=== PATIENT | male | born 1950 | race Caucasian/White ===

== ENCOUNTER 2017-09-07 11:57 | Emergency (ER) | payer BC, MEDICARE ==
[2017-09-07 12:02] VITALS: RESP 18
[2017-09-07] MEDS ORDERED: methylPREDNISolone SOD SUCCI 125 MG/2 ML VIAL IM ONE (12:22)
[2017-09-07] MEDS ORDERED: KETOROLAC 30 MG/ML 1 ML VIAL IM STA (12:22)
--- NOTE | 2017-09-07 12:58 | XR ---
EXAMINATION TYPE: XR lumbar spine 2 or 3V DATE OF EXAM: 09/07/2017 CLINICAL HISTORY: Chronic back pain since lifting injury 4 years ago worse over last 3 weeks into lef t leg. TECHNIQUE: Frontal and lateral images of the lumbar spine are obtained. COMPARISON: CT lumbar spine October 05, 2014 and lumbosacral x-ray October 04, 2014 FINDINGS: There are 5 lumbar type vertebral bodies redemonstrated. The lumbar spine redemonstrates straightened alignment without evidence of acute fracture or dislocation. Vertebral body heights enrico in within normal limits. There is now moderate spurring and disc space narrowing at left L3-L4 level more prominent versus prior. Increasing moderate to severe disc space narrowing L4-L5 level is seen. Persistent moderate to advanced disc space narrowing with mild spurring L5-S1 level is identified. Th ere is persistent mild multilevel anterior and lateral spurring. The overlying soft tissue appears u nremarkable. IMPRESSION: No acute fracture or dislocation is seen in the lumbar spine. Straightening of spine wit h increasing degenerative changes L3-L4 and L4-L5 level noted.
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
[2017-09-07 13:48] VITALS: BP 119/68; PULSE 58; TEMP 97
== END 2017-09-07 13:47 | disposition home or self-care (01) ==
LOC: EC 11:57
DX: M54.42 Lumbago with sciatica, left side (principal); I10 Essential (primary) hypertension; I25.2 Old myocardial infarction; Z95.5 Presence of coronary angioplasty implant and graft; Z88.0 Allergy status to penicillin; Z79.82 Long term (current) use of aspirin; Z79.899 Other long term (current) drug therapy
CPT/HCPCS: 99283; 96372 ×2; 72100; J2930; J1885

== ENCOUNTER 2017-09-09 16:28 | Inpatient (IN) | payer MEDICARE ==
[2017-09-09] MEDS ORDERED: HYDROmorphone 0.5 MG/0.5 ML SYRINGE IVP STA (17:15)
[2017-09-09] MEDS ORDERED: ONDANSETRON 4 MG/2 ML VIAL IVP STA (17:15)
[2017-09-09] MEDS ORDERED: DIAZEPAM 5 MG/ML 2 ML INJ IVP STA (17:16)
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
[2017-09-09 17:50] LABS: Basophils % (A) 0 %; Eosinophils # (A) 0.1 k/uL (0-0.7); Eosinophils % (A) 1 %; HCT 44.7 % (39.0-53.0); HGB 15.4 gm/dL (13.0-17.5); Lymphocytes # (A) 0.7 k/uL (1.0-4.8); Lymphocytes % (A) 7 %; MCH 30.3 pg (25.0-35.0); MCHC 34.6 g/dL (31.0-37.0); MCV 87.6 fL (80.0-100.0); Mean Platelet Volume 7.5; Monocytes # (A) 0.4 k/uL (0-1.0); Monocytes % (A) 4 %; Neutrophils # (A) 8.7 k/uL (1.3-7.7); Neutrophils % (A) 88 %; Platelet Count 154 k/uL (150-450); RDW 14.4 % (11.5-15.5); WBC 9.9 k/uL (3.8-10.6)
--- NOTE | 2017-09-09 18:00 | CT ---
EXAMINATION TYPE: CT lumbar spine wo con DATE OF EXAM: 09/09/2017 5:53 PM COMPARISON: NONE HISTORY: low back pain X many years. pt states injury to low back 4 years ago. no new injury. CT DLP: 1193.8 mGycm Automated exposure control for dose reduction was used. Unenhanced CT of the lumbar spine was performed. Bone and soft tissue window settings are submitted as well as coronal and sagittal reconstructions. The vertebra have normal alignment. There is narrowing of disc spaces throughout the lumbar spine wit h variable vacuum disc phenomenon. There is spurring of the endplates. There is no lumbar paraspinal mass. There is no compression fracture. Abdominal aorta is atheromatous. There is posterior disc bulg ing at L2-3. There is a mild lateral disc herniation at L3-4 on the left side. There is small posteri or disc herniation centrally at L4-5. The posterior elements are intact. I see no focal bone destruct ion. The sacroiliac joints are intact. IMPRESSION: Multilevel spondylosis. Findings as above. No evidence of any significant lumbar spinal stenosis. There is a small sequestered or extruded disc herniation in the spinal canal from the L3-4 disc herni ation on the left side that is in the lateral recess posterior to L4 vertebral body.
[2017-09-09 18:01] LABS: ALT 35 U/L (21-72); AST 20 U/L (17-59); Albumin 3.9 g/dL (3.5-5.0); Alkaline Phosphatase 82 U/L (38-126); Anion Gap 10 mmol/L; Blood Urea Nitrogen 29 mg/dL (9-20); Calcium 9.4 mg/dL (8.4-10.2); Carbon Dioxide 21 mmol/L (22-30); Chloride 109 mmol/L (98-107); Glucose 123 mg/dL (74-99); Sodium 140 mmol/L (137-145); Total Bilirubin 0.4 mg/dL (0.2-1.3); Total Protein 6.3 g/dL (6.3-8.2)
[2017-09-09] MEDS ORDERED: SODIUM CHLORIDE 0.9% 1,000 ML IV ONE (18:31)
[2017-09-09] MEDS ORDERED: HYDROmorphone 0.5 MG/0.5 ML SYRINGE IVP PRN (18:33)
[2017-09-09 22:29] VITALS: BMI 31.5
[2017-09-09] MEDS: DIAZEPAM 5 MG/ML 2 ML INJ IVP PRN (23:22)
[2017-09-09] MEDS: KETOROLAC 30 MG/ML 1 ML VIAL IVP SCH (23:33)
[2017-09-10] MEDS: KETOROLAC 30 MG/ML 1 ML VIAL IVP SCH ×4 (05:29→23:10)
[2017-09-10] MEDS: HYDROmorphone 0.5 MG/0.5 ML SYRINGE IVP PRN ×2 (06:33→13:14)
[2017-09-10] MEDS: DIAZEPAM 5 MG/ML 2 ML INJ IVP PRN ×2 (08:22→21:03)
[2017-09-10] MEDS ORDERED: methylPREDNISolone SOD SUCCI 125 MG/2 ML VIAL IM ONE (09:00)
[2017-09-10] MEDS: SPIRONOLACTONE 25 MG TAB PO SCH (11:28)
[2017-09-10] MEDS: PANTOPRAZOLE 40 MG TABLET PO SCH (11:28)
[2017-09-10] MEDS: LISINOPRIL 2.5 MG TAB PO SCH (11:28)
[2017-09-10] MEDS: METOPROLOL TARTRATE 25 MG TAB PO SCH (11:28)
[2017-09-10 11:29] LABS: Glucose,Whole Blood 104 mg/dL (75-99)
[2017-09-10] MEDS: ASPIRIN 81 MG PO SCH (11:29)
[2017-09-10] MEDS: ALLOPURINOL 100 MG TAB PO SCH (11:29)
[2017-09-10] MEDS: INSULIN ASPART 100 UNIT/ML 1 ML 10 ML VIAL SQ SCH ×3 (11:42→21:02)
--- NOTE | 2017-09-10 14:16 | HP ---
HISTORY AND PHYSICAL Today's date and patient seen was 09/10/2017. HOSPITAL COURSE: This is a pleasant 67-year-old white male who was admitted to the emergency department last night with severe intractable radiculopathy and low back pain. He states he had back injury years ago, which had been recently given a problems. About a month ago, he was having some increasing back pain, was started on steroids and Motrin and the pain continued to worsen. The pain has been very severe for the last week, but the patient states for the past 3 weeks he has been in and out of bed continuously. He is now currently non ambulatory and cannot even raise his head or sit up to relieve radicular symptoms. He states that when he tried to even go to the bath it became very painful and he became diaphoretic and felt like he was going to pass out. He admits to severe urinary difficulty, but denies any incontinence. Denies any recent trauma. Denies any fever or chills. Took all his Medrol Dosepak as an outpatient. MEDICATIONS: His home medications include: 1. Aspirin. 2. Zestril. 3. Allopurinol. 4. Metoprolol. 5. Spironolactone. 6. He was on prednisone 50 mg tablet 1 tablet daily for 5 days. ALLERGIES: Allergies to PENICILLIN. REVIEW OF SYSTEMS: The patient denies any stroke or paralysis. Admits to arthritis. Admits to rheumatic fever as a child. Denies any severe illness. Admits to having a problem with alcohol, but has not had any problems in years. SOCIAL: Denies any recent tobacco or recent alcohol. Did have a problem with being an alcoholic use and has been in AA before. Denies any reported drug history or use. PAST SURGICAL HISTORY: Left inguinal hernia, left eye surgery to repair broken orbit, and 2 stents in the coronary arteries. 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 PHYSICAL EXAMINATION: Patient is alert. He is answering questions appropriately. He is currently bed ridden on his back. He does not change positions. HEENT: Head is normocephalic and atraumatic. Neck is supple. No JVD. HEART: Regular rate and rhythm. LUNGS: Clear to auscultation. ABDOMEN: Soft, nontender. No rebound, rigidity, or guarding. EXTREMITIES: No cyanosis, clubbing or jaundice. ABDOMEN: Soft. There is no masses and pulse is palpable in the abdomen. Skin is warm and dry. NEUROLOGICAL: Cranial nerves 2 through 12 grossly intact. Positive pain down his bilateral lower extremity, but right greater left, with significant radicular symptoms and positive straight leg raise. The patient was unable to reduce go for or do regular range of motion testing. PSYCHIATRIC: He is answering questions appropriately, but under some distress. Temperature on admission is 98.2, pulse is low at 54, respiratory rate 18, blood pressure is slightly elevated at 148/94. CT of the back shows a disc protrusion and herniation on the left. IMPRESSIONS: 1. Acute left lumbar disc herniation with discitis and significant radiculopathy to the left greater than right lower side. 2. Coronary artery disease. 3. Intractable back pain. 4. Hypertensive cardiovascular disease. 5. Stable gout. PLAN: Admit patient. Full orthopedic consultation. Will put him on pain relief, muscle contraction relief. Physical and occupational therapy. I will go ahead and initiate steroids in the form of Depo-Medrol. Will add GI prophylaxis with some Protonix. Further treatment to be outlined by [facility]. MMODL / IJN: [id number] /
[2017-09-10 17:22] LABS: Glucose,Whole Blood 168 mg/dL (75-99)
[2017-09-10 19:22] LABS: Hemoglobin A1C 5.8 % (4.0-6.0)
[2017-09-10 20:49] LABS: Glucose,Whole Blood 166 mg/dL (75-99)
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
[2017-09-10] MEDS: methylPREDNISolone SOD SUCCI 125 MG/2 ML VIAL IV SCH (23:14)
[2017-09-11] MEDS: KETOROLAC 30 MG/ML 1 ML VIAL IVP SCH ×3 (05:32→17:46)
[2017-09-11 07:17] LABS: Glucose,Whole Blood 120 mg/dL (75-99)
[2017-09-11] MEDS: INSULIN ASPART 100 UNIT/ML 1 ML 10 ML VIAL SQ SCH ×4 (07:35→21:38)
[2017-09-11] MEDS: methylPREDNISolone SOD SUCCI 125 MG/2 ML VIAL IV SCH ×2 (07:40→15:52)
[2017-09-11] MEDS: LISINOPRIL 2.5 MG TAB PO SCH (07:41)
[2017-09-11] MEDS: PANTOPRAZOLE 40 MG TABLET PO SCH (07:41)
[2017-09-11] MEDS: ALLOPURINOL 100 MG TAB PO SCH (07:41)
[2017-09-11] MEDS: SPIRONOLACTONE 25 MG TAB PO SCH (07:41)
[2017-09-11] MEDS: ASPIRIN 81 MG PO SCH (07:41)
[2017-09-11] MEDS: METOPROLOL TARTRATE 25 MG TAB PO SCH (07:41)
[2017-09-11 12:18] LABS: Glucose,Whole Blood 118 mg/dL (75-99)
[2017-09-11] MEDS: fentaNYL (PF) 50 MCG/ML 2 ML AMP IVP ONE ×2 (14:47→14:53)
[2017-09-11] MEDS ORDERED: methylPREDNISolone ACETATE 80 MG/ML 1 ML VIAL INJ ONE (14:55)
--- NOTE | 2017-09-11 15:20 | FL ---
EXAMINATION TYPE: FL guided pain mgmt statistic DATE OF EXAM: 09/11/2017 HISTORY: Flouroscopy time 2 seconds of fluoroscopy provided. IMPRESSION: 1. Fluoroscopy time.
[2017-09-11] MEDS: HYDROmorphone 0.5 MG/0.5 ML SYRINGE IVP PRN (15:55)
[2017-09-11 17:28] LABS: Glucose,Whole Blood 131 mg/dL (75-99)
--- NOTE | 2017-09-11 20:08 | P.PCN ---
Date of Procedure: 09/11/17 Procedure(s) Performed: PREOPERATIVE DIAGNOSIS: 1- Lumbar Degenerative Disc Diseases 2-Lumbar radiculopathy. 3-lumbar herniated disc disease at L3 4 and L4 5 levels. POSTOPERATIVE DIAGNOSIS: Same as preop diagnosis PROCEDURE 1. Lumbar epidural steroid injection under fluoroscopic guidance at the L3-4 level. 2. Lumbar epidurogram. ANESTHESIA: Local with 1% lidocaine 3 ml and , moderate sedation with intravenous fentanyle 100 Mcg EBL: Minimal PROCEDURE INDICATION: The patient with low back pain and radiculitis of the left lower extremity started 3 weeks ago symptoms unresponsive to conservative treatment. Fluoroscopy was used to optimize visualization of the needle placement and to maximize safety. PROCEDURE DESCRIPTION / TECHNIQUE: The patient was seen and identified in the preoperative area. Risks, benefits , complications including but not limited to infections ,bleeding ,allergic reaction to the medications ,nerve damage and not complete pain releife , and alternatives were discussed with the patient. The patient agreed to proceed with the procedure and signed the consent. IV was started, and vital signs were stable. Patient was taken to the OR and time out was completed. The patient was placed in the prone position on procedure table and a pillow was placed under the abdomen to reduce lumbar lordosis. The lumbosacral area was prepped and draped in the usual sterile fashion.ere closely monitored during the procedure. Conscious sedation was used during the procedure to decrease patients anxiety. Vital signs was monitered during the entire procedure. Using anterior-posterior fluoroscopy, the L3-4 interlaminar space was identified and the skin over this site was marked and then infiltrated with 1% lidocaine subcutaneously. Subsequently, a 20-gauge Tuohy epidural needle was inserted and advanced toward the epidural space using the ``Loss of resistance technique and guided by AP and lateral fluoroscopy. The correct needle position in the epidural space was verified with the injection of 2 mL of the water soluble contrast dye Isovue 200 contrast and observing an excellent epidurogram with the epidural spread of the dye, after negative aspiration for blood and CSF and in the absence of paresthesias. Again after negative aspiration, a 6 ml mixture containing 80 mg of Depomedrole and 2 ml of preservative free Normal Saline, and 2 ml of preservative free lidocaine 1% solution was injected and a washout of epidurogram was seen. Needle was withdrawn intact, skin was cleansed, and bandages were applied. COMPLICATIONS: None DISPOSITION / PLANS: The patient was placed in a supine position and transferred to the recovery area in a stable condition for observation. There was no evidence of lower extremity motor or sensory deficit after the procedure. Patient was discharged from the recovery room after meeting discharge criteria. Home discharge instructions were given to the patient by the staff. The patient was reexamined prior to discharge. The patient will schedule a follow up in the clinic in 2-4 weeks.
[2017-09-11 20:53] LABS: Glucose,Whole Blood 225 mg/dL (75-99)
[2017-09-12] MEDS: KETOROLAC 30 MG/ML 1 ML VIAL IVP SCH ×4 (00:22→18:00)
[2017-09-12] MEDS: methylPREDNISolone SOD SUCCI 125 MG/2 ML VIAL IV SCH ×3 (00:23→16:32)
[2017-09-12 07:17] LABS: Glucose,Whole Blood 134 mg/dL (75-99)
[2017-09-12] MEDS: INSULIN ASPART 100 UNIT/ML 1 ML 10 ML VIAL SQ SCH ×4 (07:54→22:15)
[2017-09-12] MEDS: PANTOPRAZOLE 40 MG TABLET PO SCH (08:18)
[2017-09-12] MEDS: METOPROLOL TARTRATE 25 MG TAB PO SCH (08:18)
[2017-09-12] MEDS: ALLOPURINOL 100 MG TAB PO SCH (08:18)
[2017-09-12] MEDS: SPIRONOLACTONE 25 MG TAB PO SCH (08:18)
[2017-09-12] MEDS: ASPIRIN 81 MG PO SCH (08:18)
[2017-09-12] MEDS: LISINOPRIL 2.5 MG TAB PO SCH (08:19)
[2017-09-12] MEDS: HYDROmorphone 0.5 MG/0.5 ML SYRINGE IVP PRN ×3 (08:31→16:29)
--- NOTE | 2017-09-12 09:53 | P.PN ---
Progress Note - Text Progress Note Date: 09/12/17 Status post epidural steroid injection done yesterday Postoperative day #1, Patient is seen and examined today at bedside. The patient feels that he he has made some improvement with his pain at his back and toward his left lower extremity. He still has some radicular symptoms in his left lower extremity but underwent the epidural steroid injection yesterday and feels that it has been giving him some benefit. He denies any new changes in terms of weakness. He denies any changes in bowel bladder function. He has not yet been out of bed Physical Exam Afebrile with stable vital signs Abdomen is soft nontender. Chest has good excursion deep and space expiration The injection site is clean dry and intact. No erythema there is no purulence. Extremities have not had neurologic change from prior to surgery. He has sustained dorsiflexion plantar flexion and EHL hip flexion and knee extension with 55 strength Calves and thighs were soft nontender without evidence of DVT. Assessment/Plan Status post epidural steroid injection postop day #1 Herniated nucleus pulposis L3 4 with left lower extremity radiculopathy Degenerative disc disease with spinal stenosis The patient has made some progress with his medications and epidural steroid injection thus far. We will see how he does when getting up with physical therapy and is if he is able to mobilize adequately it will be okay for him be discharged home with close follow-up with me in approximately 1-2 weeks. If the patient has continued symptoms or is not having significant benefit he is a candidate for laminectomy decompression with discectomy at L3 4. If he is not able to get up safely out of bed or mobilize over the next day or is unable to the hospital due to his pain and radiculopathy then I think it would be reasonable to proceed with surgery potentially as early as Thursday for decompression and discectomy at L3 4. Certainly the patient is hopeful to avoid surgery if he is able. If his symptoms diminish with conservative treatment it will be okay for him to be discharged home with follow-up as outpatient. I discussed this with him at length and he is agreeable. We will continue to increase the patient's mobilization with therapy. We will continue pain control with oral or IV medications. We'll continue to follow patient closely.
[2017-09-12 11:42] LABS: Glucose,Whole Blood 170 mg/dL (75-99)
[2017-09-12 16:52] LABS: Glucose,Whole Blood 182 mg/dL (75-99)
[2017-09-12 20:38] LABS: Glucose,Whole Blood 173 mg/dL (75-99)
[2017-09-12] MEDS: DIAZEPAM 5 MG/ML 2 ML INJ IVP PRN (21:05)
[2017-09-12] MEDS: DOCUSATE 100 MG CAP PO SCH (22:16)
--- NOTE | 2017-09-13 00:19 | P.PN ---
Subjective Progress Note Date: 09/12/17 Principal diagnosis: Lumbar radiculopathy Patient is a 67-year-old male with a known history of hypertension and GERD and history of MT admitted to the hospital with severe intractable back pain and radiculopathy. Patient has been having symptoms for the past 6 months and has not been relieved with pain medications and steroids. Currently patient is nonambulatory and cannot raise his head or sit up on the bed and is also having pain radiating down the legs. Patient does have difficulty urination but no incontinence. 09/12/2017 Patient had epidural steroid injection on 09/11/2017 without much improvement in symptoms. Orthopedic surgery is following. Currently denied any chest pain or shortness of breath. No nausea vomiting or abdominal pain. Currently patient is on methylprednisolone 60 mg every 8 hours. All other review of systems negative except the above Current medications reviewed Active Medications Allopurinol (Zyloprim) 100 mg PO DAILY [facility] Last Admin: 09/12/17 08:18 Dose: 100 mg Aspirin (Aspirin) 81 mg PO DAILY [facility] Last Admin: 09/12/17 08:18 Dose: 81 mg Diazepam (Valium) 3 mg IVP Q8H PRN PRN Reason: Muscle Pain Last Admin: 09/12/17 21:05 Dose: 3 mg Docusate Sodium (Colace) 100 mg PO 2100 [facility] Last Admin: 09/12/17 22:16 Dose: Not Given Hydromorphone HCl (Dilaudid) 1 mg IVP Q3HR PRN PRN Reason: Moderate to Severe Pain Last Admin: 09/12/17 16:29 Dose: 1 mg Insulin Aspart (Novolog) 0 unit SQ ACHS [facility] PRN Reason: Protocol Last Admin: 09/12/17 22:15 Dose: 3 unit Ketorolac Tromethamine (Toradol) 15 mg IVP Q6HR [facility] Stop: 09/13/17 18:33 Last Admin: 09/13/17 00:00 Dose: 15 mg Lisinopril (Zestril) 2.5 mg PO DAILY [facility] Last Admin: 09/12/17 08:19 Dose: 2.5 mg Methylprednisolone Sodium Succinate (Solu-Medrol) 60 mg IV Q8HR [facility] Last Admin: 09/13/17 00:00 Dose: 60 mg Metoprolol Tartrate (Lopressor) 25 mg PO DAILY [facility] Last Admin: 09/12/17 08:18 Dose: 25 mg Pantoprazole Sodium (Protonix) 40 mg PO AC-BRKFST [facility] Last Admin: 09/12/17 08:18 Dose: 40 mg Spironolactone (Aldactone) 12.5 mg PO DAILY [facility] Last Admin: 09/12/17 08:18 Dose: 12.5 mg Objective - Vital Signs Vital signs: Vital Signs Temp 96.7 F L 09/12/17 14:40 Pulse 52 L 09/12/17 14:40 Resp 16 09/12/17 15:10 BP 117/70 09/12/17 14:40 Pulse Ox 94 L 09/12/17 14:40 Intake & Output 09/11/17 09/12/17 09/12/17 18:59 06:59 18:59 Intake Total 600 Output Total 375 300 350 Balance -375 -300 250 Intake: Oral 600 Output: Urine 375 300 350 Other: Voiding Method Urinal # Voids 2 0 1 # Bowel Movements 0 - Exam PHYSICAL EXAMINATION: Patient is lying in the bed comfortably, no acute distress, awake alert and oriented.. HEENT: Normocephalic. Neck is supple. Pupils reactive. Nostrils clear. Oral cavity is moist. Ears reveal no drainage. Neck reveals no JVD, carotid bruits, or thyromegaly. CHEST EXAMINATION: Trachea is central. Symmetrical expansion. Lung robison clear to auscultation and percussion. CARDIAC: Normal S1, S2 with no gallops. No murmurs ABDOMEN: Soft. Bowel sounds normal. No organomegaly. No abdominal bruits. Extremities: reveal no edema. No clubbing or cyanosis Neurologically awake, alert, oriented x3 with well-coordinated movements. No focal deficits noted Skin: No rash or skin lesions. Psychiatric: Cooperative. Nonsuicidal Musculoskeletal: No joint swelling or deformity. Patient does have difficulty raising leg from the bed and unable to get up from the bed as well. Patient does have retinopathy pain down the legs right greater than left. Denied any sensory deficit. - Labs CBC & Chem 7: 09/09/17 17:31 09/09/17 17:31 Labs: Abnormal Lab Results - Last 24 Hours (Table) 09/11/17 09/11/17 09/12/17 Range/Units 17:16 20:52 07:14 POC Glucose (mg/dL) 131 H 225 H 134 H (75-99) mg/dL 09/12/17 Range/Units 11:41 POC Glucose (mg/dL) 170 H (75-99) mg/dL Assessment and Plan Assessment: Acute left lumbar disc herniation with discitis and significant radiculopathy Chronic lower back pain Coronary artery disease with history of stent placement Gout stable Hypertensive heart disease Mild hyperglycemia due to steroid use. No history of diabetes DVT prophylaxis Plan: Patient will be continued on pain management with Dilaudid and Toradol. Status post epidural steroid injection. Further recommendations based on the clinical course and orthopedic recommendations. Continue with sliding scale insulin. No history of diabetes. 2 Time with Patient: Greater than 30
[2017-09-13] MEDS: KETOROLAC 30 MG/ML 1 ML VIAL IVP SCH ×4 (06:42→17:38)
[2017-09-13 07:01] LABS: Glucose,Whole Blood 123 mg/dL (75-99)
[2017-09-13] MEDS: METOPROLOL TARTRATE 25 MG TAB PO SCH (09:07)
[2017-09-13] MEDS: PANTOPRAZOLE 40 MG TABLET PO SCH (09:07)
[2017-09-13] MEDS: ASPIRIN 81 MG PO SCH (09:07)
[2017-09-13] MEDS: ALLOPURINOL 100 MG TAB PO SCH (09:07)
[2017-09-13] MEDS: LISINOPRIL 2.5 MG TAB PO SCH (09:07)
[2017-09-13] MEDS: HEPARIN SODIUM,PORCINE 5,000 UNIT/ML 1 ML VIAL SQ SCH ×2 (09:08→17:37)
[2017-09-13] MEDS: methylPREDNISolone SOD SUCCI 125 MG/2 ML VIAL IV SCH ×3 (09:08→17:37)
[2017-09-13] MEDS: INSULIN ASPART 100 UNIT/ML 1 ML 10 ML VIAL SQ SCH ×4 (09:08→20:59)
[2017-09-13] MEDS: SPIRONOLACTONE 25 MG TAB PO SCH (09:08)
[2017-09-13 11:59] LABS: Glucose,Whole Blood 143 mg/dL (75-99)
--- NOTE | 2017-09-13 15:45 | P.PN ---
<Lázaro Estrada - Last Filed: 09/13/17 15:41> Progress Note - Text Progress Note Date: 09/13/17 Patient is a very pleasant 67-year-old male who is seen and examined at bedside for follow-up evaluation with his family present for further evaluation for his significant left lower extremity radiculopathy. He states he is known to have left lower extremity radiculopathy for significant number of years that had significantly improved after an epidural injection 4 years ago. Approximately 3 -4 weeks ago he was lifting a refrigerator when he had significant pain shooting down his left lower extremity. Since that time he has not had significant improvement of his symptoms. He states he has pain that radiates from the left lower lumbar spine, over the lateral hip, and over the anterior thigh to the left knee. He has also noticed some pain that radiates over the medial calf towards the left great toe. He's had significant difficulty with ambulation due to his pain. He states he is able to use the restroom but has significant difficulty with trying to ambulate to the restroom. He feels weakness in his left lower extremity due to pain. He is able to move his left lower extremity freely throughout range of motion in the bed without difficulty. His pain is better controlled while lying in bed. He denies any right lower extremity weakness or radiculopathy. He has not had significant improvement of his symptoms since his admittance to the hospital. He recently underwent an epidural steroid injection with Dr. Bartlett on 09/11/2017 and does not feel this is provided significant improvement of his symptoms. Today he would like to discuss the possibility of surgical intervention and other treatment options. Physical exam: Patient is awake, alert, and oriented 3 Vital signs stable Good chest excursion with deep inspiration and expiration Abdomen soft nontender Examination of lumbar spine reveals skin is intact with no abrasions, aspirations, or bruises; no erythema, purulence or signs of infection Dorsiflexion, plantarflexion, and extensor hallucis longus positive sustained bilaterally Lower extremity strength 5/5 bilaterally Patellar reflex 1+ bilaterally and Achilles reflexes 0+ bilaterally No lower extremity hyperreflexia bilaterally Straight leg test negative bilateral lower extremities No signs or symptoms of DVT; no calf pain No pain with internal and external rotation of the hips bilaterally Neurovascularly intact Pertinent studies: CT of the lumbar spine: L3-4 degenerative disc disease and left paracentral disc herniation and centrally resulting in left neural foraminal stenosis; L4-5 degenerative disc disease and some central and bilateral neural foraminal stenosis; L5-S1 degenerative disc disease and some central bilateral neural foraminal stenosis; mild degenerative scoliosis L3-S1; vacuuming at L3-4; vacuum disc phenomenon L5-S1 Assessment: L3-4 herniated nucleus pulposus Low back pain with left lower extremity radiculopathy Ambulating ambulate Lumbar degenerative disc disease with degenerative scoliosis Acute on chronic low back pain Plan: 1. After further discussion with the patient, discussion with his family, reviewing of imaging, and physical examination the patient, we will currently plan to proceed forward with surgical intervention. Patient has significant pain radiating from his lumbar spine, over the left hip, and over the left anterior thigh and down towards the left great toe. He does have evidence of a herniated nucleus pulposus at L3-4. His symptoms have been severe and ongoing over the past 3-4 weeks after lifting a refrigerator. His symptoms have not improved with conservative treatment including medicine and an epidural steroid injection. He has significant difficulty with ambulation due to his pain. We do feel surgical intervention could help provide improvement of his symptoms given his findings on imaging which correlate well with his symptoms. I discussed these issues with the patient at length and I answered all of their questions to the best of my ability and the patient understands. I discussed the risk of surgical intervention and alternative treatment options. The risk of surgical intervention was explained to the patient in detail including but not limited to risk of bleeding, risk of infection, risk and need for further surgery, risk of decreased loss of motion of function, malunion, nonunion, hardware failure, nerve damage, paralysis, heart attack, , as well as the fact that surgery may not alleviate her symptoms. I answered all the patient's questions the best of my ability. The patient would like to proceed forward with surgical intervention and will sign informed consent. We'll plan to proceed for surgical intervention tomorrow, 09/14/2017. The proposed surgical intervention is L3-4 laminectomy and decompression with discectomy. We will plan for medical clearance prior to surgical intervention. Patient will become nothing by mouth status at midnight, 09/14/2017. 2. Continue pain control 3. Medicine to continue following the patient and for surgical clearance 4. We will continue to follow patient closely 5. Patient has been discussed in detail with Dr. Chris Joshi and he agrees with this plan <Yvette Joshi - Last Filed: 09/13/17 21:23> Progress Note - Text The patient is seen and examined today at bedside. He is still having good strength in his lower extremity is with dorsal/plantar flexion and EHL. He still has great trouble with any sort of mobilization. He is able to get up just very briefly only couple minutes at a time but has not trouble getting up to the bathroom by himself. He has significant pain in his back and towards left lower extremity particularly anterior thigh with mobilization. We again discussed the issue of his large disc herniation at L3 4 with him. He feels he may have had some slight improvement with his injection but is still having severe symptoms and inability to mobilize on his own safely. I discussed with him the possibility of continuing conservative treatment which is reasonable if he is having benefit. We also discussed the possibility of surgery. We discussed surgical intervention with decompression laminectomy and discectomy at L3 4 with him I discussed the risks, occasions alternatives and benefits. I discussed the risks of bleeding risk and infection was need for further surgery risk of decreased loss of motion nerve damage paralysis are intact as well as the fact that surgery may not alleviate his symptoms was explained to him patient is interested in proceeding with surgical intervention if he is not having any improvement tomorrow. We'll make him nothing by mouth after midnight and plan for laminectomy decompression and discectomy at L3 4 tomorrow afternoon.
[2017-09-13 17:39] LABS: Glucose,Whole Blood 137 mg/dL (75-99)
[2017-09-13] MEDS: DOCUSATE 100 MG CAP PO SCH ×2 (20:39→20:40)
[2017-09-13 20:48] LABS: Glucose,Whole Blood 176 mg/dL (75-99)
[2017-09-13] MEDS: HYDROmorphone 0.5 MG/0.5 ML SYRINGE IVP PRN (21:33)
--- NOTE | 2017-09-13 23:01 | P.PN ---
Subjective Progress Note Date: 09/13/17 Principal diagnosis: Lumbar radiculopathy Patient is a 67-year-old male with a known history of hypertension and GERD and history of [place] admitted to the hospital with severe intractable back pain and radiculopathy. Patient has been having symptoms for the past 6 months and has not been relieved with pain medications and steroids. Currently patient is nonambulatory and cannot raise his head or sit up on the bed and is also having pain radiating down the legs. Patient does have difficulty urination but no incontinence. 09/12/2017 Patient had epidural steroid injection on 09/11/2017 without much improvement in symptoms. Orthopedic surgery is following. Currently denied any chest pain or shortness of breath. No nausea vomiting or abdominal pain. Currently patient is on methylprednisolone 60 mg every 8 hours. 09/13/2017 Patient is still complaining of bilateral lower extremities pain down the legs and unable to move. Pain medications and IV steroids have not been helpful for much. Orthopedics has seen the patient and recommended laminectomy and disc decompression. Planning for procedure tomorrow. Patient currently denied any complaints of chest pain or shortness of breath. No nausea vomiting or abdominal pain. No headache or dizziness or lightheadedness. Denied any problems with urinary retention or bowel movement. All other review of systems negative except the above Current medications reviewed Active Medications Allopurinol (Zyloprim) 100 mg PO DAILY [facility] Last Admin: 09/12/17 08:18 Dose: 100 mg Aspirin (Aspirin) 81 mg PO DAILY [facility] Last Admin: 09/12/17 08:18 Dose: 81 mg Diazepam (Valium) 3 mg IVP Q8H PRN PRN Reason: Muscle Pain Last Admin: 09/12/17 21:05 Dose: 3 mg Docusate Sodium (Colace) 100 mg PO 2100 [facility] Last Admin: 09/12/17 22:16 Dose: Not Given Hydromorphone HCl (Dilaudid) 1 mg IVP Q3HR PRN PRN Reason: Moderate to Severe Pain Last Admin: 09/12/17 16:29 Dose: 1 mg Insulin Aspart (Novolog) 0 unit SQ ACHS [facility] PRN Reason: Protocol Last Admin: 09/12/17 22:15 Dose: 3 unit Ketorolac Tromethamine (Toradol) 15 mg IVP Q6HR [facility] Stop: 09/13/17 18:33 Last Admin: 09/13/17 00:00 Dose: 15 mg Lisinopril (Zestril) 2.5 mg PO DAILY [facility] Last Admin: 09/12/17 08:19 Dose: 2.5 mg Methylprednisolone Sodium Succinate (Solu-Medrol) 60 mg IV Q8HR [facility] Last Admin: 09/13/17 00:00 Dose: 60 mg Metoprolol Tartrate (Lopressor) 25 mg PO DAILY [facility] Last Admin: 09/12/17 08:18 Dose: 25 mg Pantoprazole Sodium (Protonix) 40 mg PO AC-BRKFST [facility] Last Admin: 09/12/17 08:18 Dose: 40 mg Spironolactone (Aldactone) 12.5 mg PO DAILY [facility] Last Admin: 09/12/17 08:18 Dose: 12.5 mg Objective - Vital Signs Vital signs: Vital Signs Temp 97.4 F L 09/13/17 15:00 Pulse 94 09/13/17 15:00 Resp 16 09/13/17 15:20 BP 136/83 09/13/17 15:00 Pulse Ox 92 L 09/13/17 15:00 Intake & Output 09/12/17 09/13/17 09/13/17 18:59 06:59 18:59 Intake Total 600 Output Total 350 1100 Balance 250 -1100 Intake: Oral 600 Output: Urine 350 1100 Other: Voiding Method Urinal # Voids 3 2 - Exam PHYSICAL EXAMINATION: Patient is lying in the bed comfortably, no acute distress, awake alert and oriented.. HEENT: Normocephalic. Neck is supple. Pupils reactive. Nostrils clear. Oral cavity is moist. Ears reveal no drainage. Neck reveals no JVD, carotid bruits, or thyromegaly. CHEST EXAMINATION: Trachea is central. Symmetrical expansion. Lung robison clear to auscultation and percussion. CARDIAC: Normal S1, S2 with no gallops. No murmurs ABDOMEN: Soft. Bowel sounds normal. No organomegaly. No abdominal bruits. Extremities: reveal no edema. No clubbing or cyanosis Neurologically awake, alert, oriented x3 with well-coordinated movements. No focal deficits noted Skin: No rash or skin lesions. Psychiatric: Cooperative. Nonsuicidal Musculoskeletal: No joint swelling or deformity. Patient does have difficulty raising leg from the bed and unable to get up from the bed as well. Patient does have retinopathy pain down the legs right greater than left. Denied any sensory deficit. - Labs CBC & Chem 7: 09/09/17 17:31 09/09/17 17:31 Labs: Abnormal Lab Results - Last 24 Hours (Table) 09/12/17 09/12/17 09/13/17 Range/Units 16:50 20:37 06:58 POC Glucose (mg/dL) 182 H 173 H 123 H (75-99) mg/dL 09/13/17 Range/Units 11:47 POC Glucose (mg/dL) 143 H (75-99) mg/dL Assessment and Plan Assessment: Acute left lumbar disc herniation with discitis and significant radiculopathy Chronic lower back pain Coronary artery disease with history of stent placement Gout stable Hypertensive heart disease Mild hyperglycemia due to steroid use. No history of diabetes DVT prophylaxis Plan: Patient will be continued on pain management with Dilaudid and Toradol. Status post epidural steroid injection without symptomatic relief. Orthopedic surgery is planning for laminectomy.. Currently patient denied any chest pain or shortness of breath. No leg swelling. No nausea vomiting no headache or dizziness or lightheadedness. Otherwise patient is moderate risk for intermediate risk orthopedic spinal surgery. Continue with metoprolol.. We will continue to follow. Further recommendations based on the clinical course and orthopedic recommendations. Continue with sliding scale insulin. No history of diabetes. 2 Time with Patient: Greater than 30
[2017-09-14] MEDS: HEPARIN SODIUM,PORCINE 5,000 UNIT/ML 1 ML VIAL SQ SCH ×4 (00:50→21:24)
[2017-09-14] MEDS: methylPREDNISolone SOD SUCCI 125 MG/2 ML VIAL IV SCH ×3 (00:50→19:54)
[2017-09-14 06:58] LABS: Glucose,Whole Blood 127 mg/dL (75-99)
[2017-09-14] MEDS: INSULIN ASPART 100 UNIT/ML 1 ML 10 ML VIAL SQ SCH ×4 (07:25→20:17)
[2017-09-14] MEDS: ASPIRIN 81 MG PO SCH (07:26)
[2017-09-14] MEDS: ALLOPURINOL 100 MG TAB PO SCH (07:27)
[2017-09-14] MEDS: METOPROLOL TARTRATE 25 MG TAB PO SCH ×2 (07:27→21:14)
[2017-09-14] MEDS: PANTOPRAZOLE 40 MG TABLET PO SCH (07:27)
[2017-09-14] MEDS: LISINOPRIL 2.5 MG TAB PO SCH (07:27)
[2017-09-14] MEDS: SPIRONOLACTONE 25 MG TAB PO SCH (07:27)
--- NOTE | 2017-09-14 08:24 | P.PN ---
Progress Note - Text Progress Note Date: 09/14/17 Patient is a very pleasant 67-year-old male who is seen and examined at bedside for follow-up evaluation for further evaluation for his significant left lower extremity radiculopathy. He has not had any change in his symptoms since being seen and examined yesterday. He states he is known to have left lower extremity radiculopathy for significant number of years that had significantly improved after an epidural injection 4 years ago. Approximately 3-4 weeks ago he was lifting a refrigerator when he had significant pain shooting down his left lower extremity. Since that time he has not had significant improvement of his symptoms. He states he has pain that radiates from the left lower lumbar spine, over the lateral hip, and over the anterior thigh to the left knee. He has also noticed some pain that radiates over the medial calf towards the left great toe. He's had significant difficulty with ambulation due to his pain. He states he is able to use the restroom but has significant difficulty with trying to ambulate to the restroom. He feels weakness in his left lower extremity due to pain. He is able to move his left lower extremity freely throughout range of motion in the bed without difficulty. His pain is better controlled while lying in bed. He denies any right lower extremity weakness or radiculopathy. He has not had significant improvement of his symptoms since his admittance to the hospital. He recently underwent an epidural steroid injection with Dr. Bartlett on 09/11/2017 and does not feel this is provided significant improvement of his symptoms. Today he states he would like to see if he is able to ambulate to the restroom without significant difficulty. If he is unable to do so, he would like to proceed forward with surgical intervention as previously discussed and scheduled. If his ability to ambulate has improved, we'll plan to postpone his surgical intervention and continue with conservative treatment. Physical exam: Patient is awake, alert, and oriented 3 Vital signs stable Good chest excursion with deep inspiration and expiration Abdomen soft nontender Examination of lumbar spine reveals skin is intact with no abrasions, aspirations, or bruises; no erythema, purulence or signs of infection Dorsiflexion, plantarflexion, and extensor hallucis longus positive sustained bilaterally Lower extremity strength 5/5 bilaterally Patellar reflex 1+ bilaterally and Achilles reflexes 0+ bilaterally No lower extremity hyperreflexia bilaterally Straight leg test negative bilateral lower extremities No signs or symptoms of DVT; no calf pain No pain with internal and external rotation of the hips bilaterally Neurovascularly intact Pertinent studies: CT of the lumbar spine: L3-4 degenerative disc disease and left paracentral disc herniation and centrally resulting in left neural foraminal stenosis; L4-5 degenerative disc disease and some central and bilateral neural foraminal stenosis; L5-S1 degenerative disc disease and some central bilateral neural foraminal stenosis; mild degenerative scoliosis L3-S1; vacuuming at L3-4; vacuum disc phenomenon L5-S1 Assessment: L3-4 herniated nucleus pulposus Low back pain with left lower extremity radiculopathy Ambulating ambulate Lumbar degenerative disc disease with degenerative scoliosis Acute on chronic low back pain Plan: 1. After further discussion with the patient morning, patient states he would like to try to ambulate to the restroom this morning as he has had significant difficulty doing so. If he is able to ambulate without significant difficulty, he like to wait on proceeding forward with surgical intervention. If he continues to have significant difficulty with ambulation, he would like to proceed forward with surgical intervention this afternoon. Surgical intervention was ordered yesterday after further examination and discussion. Patient has significant pain radiating from his lumbar spine, over the left hip , and over the left anterior thigh and down towards the left great toe. He does have evidence of a herniated nucleus pulposus at L3-4. His symptoms have been severe and ongoing over the past 3-4 weeks after lifting a refrigerator. His symptoms have not improved with conservative treatment including medicine and an epidural steroid injection. He has significant difficulty with ambulation due to his pain. We do feel surgical intervention could help provide improvement of his symptoms given his findings on imaging which correlate well with his symptoms. I discussed these issues with the patient at length and I answered all of their questions to the best of my ability and the patient understands. I discussed the risk of surgical intervention and alternative treatment options. The risk of surgical intervention was explained to the patient in detail including but not limited to risk of bleeding, risk of infection, risk and need for further surgery, risk of decreased loss of motion of function, malunion, nonunion, hardware failure, nerve damage, paralysis, heart attack, , as well as the fact that surgery may not alleviate her symptoms. I answered all the patient's questions the best of my ability. The patient currently scheduled for surgical intervention and will sign informed consent if we proceed forward. We are planning for surgical intervention today , 09/14/2017, if the patient plans to proceed forward. The proposed surgical intervention is L3-4 laminectomy and decompression with discectomy. We will plan for medical clearance prior to surgical intervention. Patient is currently nothing by mouth status since midnight, 09/14/2017. 2. Continue pain control 3. Medicine to continue following the patient and for surgical clearance 4. We will continue to follow patient closely 5. Patient has been discussed in detail with Dr. Chris Joshi and he agrees with this plan
--- NOTE | 2017-09-14 10:22 | P.PN ---
Subjective Progress Note Date: 09/14/17 Patient is a 67-year-old male with a known history of hypertension and GERD and history of [place] admitted to the hospital with severe intractable back pain and radiculopathy. Patient has been having symptoms for the past 6 months and has not been relieved with pain medications and steroids. Currently patient is nonambulatory and cannot raise his head or sit up on the bed and is also having pain radiating down the legs. Patient does have difficulty urination but no incontinence. 09/12/2017 Patient had epidural steroid injection on 09/11/2017 without much improvement in symptoms. Orthopedic surgery is following. Currently denied any chest pain or shortness of breath. No nausea vomiting or abdominal pain. Currently patient is on methylprednisolone 60 mg every 8 hours. 09/13/2017 Patient is still complaining of bilateral lower extremities pain down the legs and unable to move. Pain medications and IV steroids have not been helpful for much. Orthopedics has seen the patient and recommended laminectomy and disc decompression. Planning for procedure tomorrow. Patient currently denied any complaints of chest pain or shortness of breath. No nausea vomiting or abdominal pain. No headache or dizziness or lightheadedness. Denied any problems with urinary retention or bowel movement. Above notes per Dr. Crawford, covering for Dr. Encarnacion 09/14/2017 Patient seen and examined at the bedside. Patient underwent lumbar epidural steroid injection at L3-4 on 09/11/2017. Patient reports no significant improvement in his symptoms. Patient is scheduled for L3-4 laminectomy and decompression with discectomy this afternoon by Dr. Joshi. Patient denies chest pain or pressure. Denies shortness of breath or coughing. Denies nausea or vomiting. Patient states he has been voiding without difficulty. He does report he has not had a bowel movement in a couple days. Vital signs have been stable. Objective - Vital Signs Vital signs: Vital Signs Temp 97.9 F 09/14/17 06:37 Pulse 88 09/14/17 06:37 Resp 18 09/14/17 06:37 BP 130/83 09/14/17 06:37 Pulse Ox 95 09/14/17 06:37 Intake & Output 09/13/17 09/14/17 09/14/17 18:59 06:59 18:59 Intake Total 100 Output Total 1100 850 Balance -1100 -750 Intake: Oral 100 Output: Urine 1100 850 - Exam GENERAL: This is a 67-year-old male in no apparent distress at the time of examination. Pleasant and cooperative. HEENT: Head is atraumatic, normocephalic. Pupils are equal, round, and reactive to light. Sclerae anicteric. Conjunctivae are clear. Mucus membranes of the mouth are moist. Neck is supple. RESPIRATORY: Clear to ausculation. No wheezes, rales, or rhonchi. No use of accessory muscles. Patient maintaining oxygen saturation greater than 92%. No chest wall tenderness is noted on palpation or with deep breathing. CARDIOVASCULAR: S1 and S2 noted. No systolic or diastolic murmur auscultated. No JVD noted. No S3 or S4 noted. GASTROINTESTINAL: No distention noted. Abdomen soft and round. Normal active bowel sounds auscultated x 4 quadrants. No pain or tenderness noted upon palpation. INTEGUMENTARY: No cyanosis. No jaundice. No rashes noted. No cellulitis noted. EXTREMITIES: 2+ peripheral pulses. No evidence of peripheral edema. No calf tenderness noted. NEUROLOGIC: Cranial nerves II-XII intact. PSYCHIATRIC: Awake, alert, and oriented X 3. Appropriate affect. Intact judgement and insight. - Labs CBC & Chem 7: 09/09/17 17:31 09/09/17 17:31 Labs: Abnormal Lab Results - Last 24 Hours (Table) 09/13/17 09/13/17 09/13/17 Range/Units 11:47 17:14 20:46 POC Glucose (mg/dL) 143 H 137 H 176 H (75-99) mg/dL 09/14/17 Range/Units 06:57 POC Glucose (mg/dL) 127 H (75-99) mg/dL Assessment and Plan Plan: ASSESSMENT: Acute on chronic lower back pain Low back pain with left lower extremity radiculopathy Inability to ambulate L3-4 herniated nucleus pulposus Lumbar degenerative disc disease with degenerative scoliosis Steroid-induced hyperglycemia Coronary artery disease with history of stent placement History of gout Hypertension PLAN: Orthopedics on consult. Appreciate recommendations and input Patient scheduled for OR today if he continues to have difficulty ambulating Pain control Home meds as appropriate Monitor labs GI/DVT prophylaxis Monitor vital signs and address as appropriate CBC and BMP 12-lead EKG Will review results of blood work and EKG and then make recommendations regarding medical clearance for OR Nurse practitioner note has been reviewed by physician. Signing provider agrees with the documented findings, assessment, and plan of care.
[2017-09-14 11:51] LABS: Calcium 8.4 mg/dL (8.4-10.2); Potassium 4.7 mmol/L (3.5-5.1)
[2017-09-14 12:02] LABS: Glucose,Whole Blood 115 mg/dL (75-99)
[2017-09-14 12:13] LABS: Basophils % (A) 0 %; Eosinophils % (A) 0 %; HCT 42.4 % (39.0-53.0); HGB 14.9 gm/dL (13.0-17.5); Lymphocytes # (A) 0.4 k/uL (1.0-4.8); Lymphocytes % (A) 5 %; MCH 31.3 pg (25.0-35.0); MCHC 35.1 g/dL (31.0-37.0); MCV 89.1 fL (80.0-100.0); Monocytes # (A) 0.5 k/uL (0-1.0); Monocytes % (A) 5 %; Neutrophils # (A) 8.1 k/uL (1.3-7.7); Neutrophils % (A) 90 %; Platelet Count 132 k/uL (150-450); RBC 4.76 m/uL (4.30-5.90); RDW 14.7 % (11.5-15.5)
[2017-09-14 13:30] LABS: Magnesium 2.1 mg/dL (1.6-2.3)
--- NOTE | 2017-09-14 13:40 | ECHOF ---
Referral Reason:lv function, new onset afib, hx of GA MEASUREMENTS -------- HEIGHT: 172.7 cm WEIGHT: 93.9 kg BP: 130/83 RVIDd: 2.8 cm (< 3.3) IVSd: 1.0 cm (0.6 - 1.1) LVIDd: 5.1 cm (3.9 - 5.3) LVPWd: 1.0 cm (0.6 - 1.1) IVSs: 1.2 cm LVIDs: 4.2 cm LVPWs: 1.1 cm LAESV Index (A-L): 41.85 ml/m Ao Diam: 2.9 cm (2.0 - 3.7) AV Cusp: 1.7 cm (1.5 - 2.6) LA Diam: 3.5 cm (2.7 - 3.8) EPSS: 1.1 cm MV E Kev: 0.82 m/s MV DecT: 193 ms MV A Kev: 0.52 m/s MV E/A Ratio: 1.58 RAP: 5.00 mmHg RVSP: 11.02 mmHg MV EF SLOPE: 124.98 mm/s (70 - 150) MV EXCURSION: 2.08 cm (> 18.000) FINDINGS -------- Atrial fibrillation. This was a technically difficult study with suboptimal views. The left ventricular size is normal. Left ventricular wall thickness is normal. Overall left vent ricular systolic function is moderately impaired with, an EF between 35 - 40 %. Anterseptal Hypokin esis Lateral hypokinesis Inferior Hypokinesis The right ventricle is normal in size and function. LA is severely dilated >40 ml/m2 RA appears enlarged. 3ml of Lumason was utilized for enhancement of images. The aortic valve is trileaflet, and appears structurally normal. No aortic stenosis or regurgitation. The mitral valve leaflets are mildly thickened. Mild mitral regurgitation is present. Trace tricuspid regurgitation present. Right ventricular systolic pressure is normal at < 35 mmHg. There is no evidence of pulmonary hypertension. The pulmonic valve was not well visualized. The aortic root size is normal. Normal inferior vena cava with normal inspiratory collapse consistent with estimated right atrial pre ssure of 5 mmHg. There is no pericardial effusion. CONCLUSIONS -------- 1. Atrial fibrillation. 2. This was a technically difficult study with suboptimal views. 3. The left ventricular size is normal. 4. Left ventricular wall thickness is normal. 5. Overall left ventricular systolic function is moderately impaired with, an EF between 35 - 40 %. 6. Anterseptal Hypokinesis 7. Lateral hypokinesis 8. Inferior Hypokinesis 9. LA is severely dilated >40 ml/m2 10. RA appears enlarged. 11. 3ml of Lumason was utilized for enhancement of images. 12. The aortic valve is trileaflet, and appears structurally normal. No aortic stenosis or regurgitat ion. 13. The mitral valve leaflets are mildly thickened. 14. Mild mitral regurgitation is present. 15. Trace tricuspid regurgitation present. 16. Right ventricular systolic pressure is normal at < 35 mmHg. 17. There is no evidence of pulmonary hypertension. 18. The pulmonic valve was not well visualized. 19. The aortic root size is normal. 20. There is no pericardial effusion. OPERATIONS SUPPORT SPECIALIST: Avi Gallegos RDCS
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
[2017-09-14] MEDS ORDERED: IV FLUID CONTINUATION 1,000 ML IV ONE (14:25)
[2017-09-14] MEDS ORDERED: ONDANSETRON 4 MG/2 ML VIAL IVP ONE (14:29)
[2017-09-14 15:18] LABS: T4, Free (Free Thyroxine) 0.69 ng/dL (0.78-2.19)
[2017-09-14] MEDS ORDERED: BACITRACIN 50,000 UNIT, POLYMYXIN B 500,000 UNIT in SODIUM CHLORIDE 0.9% IRRIGATIO 1,00... IRRIGATION ONE (15:30)
[2017-09-14] MEDS ORDERED: ceFAZolin IN SWFI 2 GM/20 ML SYRINGE IVP ONE (15:30)
[2017-09-14] MEDS ORDERED: fentaNYL (PF) 50 MCG/ML 2 ML AMP ONE (15:38)
[2017-09-14] MEDS ORDERED: MIDAZOLAM 2 MG/2 ML VIAL ONE (15:38)
[2017-09-14] MEDS ORDERED: LIDOCAINE 1% INJ 10MG/ML (20 ML MDV) ONE (15:38)
[2017-09-14] MEDS ORDERED: SUCCINYLCHOLINE CHLORIDE VIAL 200 MG/10 ML VIAL IV ONE (15:38)
[2017-09-14] MEDS ORDERED: ETOMIDATE 2 MG/ML 10 ML VIAL ONE (15:38)
[2017-09-14] MEDS ORDERED: PHENYLEPHRINE-0.9% NACL SYG 1 MG/10 ML SYRINGE ONE (15:38)
[2017-09-14] MEDS ORDERED: LIDOCAINE 0.5%-EPI 1:200,000 50 ML VIAL SQ ONE ×2 (16:05)
[2017-09-14] MEDS ORDERED: THROMBIN (BOVINE) 5,000 UNIT VIAL TOPICAL ONE (16:05)
[2017-09-14] MEDS ORDERED: GELATIN SPONGE,ABSORB (LARGE) 1 EACH SPONGE TOPICAL ONE (16:05)
[2017-09-14] MEDS ORDERED: methylPREDNISolone ACETATE 80 MG/ML 1 ML VIAL MISCELLANE ONE ×2 (16:21→16:40)
[2017-09-14] MEDS ORDERED: HYDROcodone/APAP 5-325MG 1 EACH TAB PO PRN ×2 (17:00)
[2017-09-14] MEDS ORDERED: ONDANSETRON 4 MG/2 ML VIAL IVP PRN (17:00)
--- NOTE | 2017-09-14 17:00 | P.OP ---
Date of Procedure: 09/14/17 Preoperative Diagnosis: Herniated nucleus pulposis L3 4 Left lower extremity radiculopathy Inability to ambulate Degenerative disc disease L3 4 Postoperative Diagnosis: Same Anesthesia: GETA Pathology: none sent Condition: stable Disposition: PACU Description of Procedure: BRIEF OPERATIVE NOTE Preoperative Diagnosis: Herniated nucleus pulposis L3 4, severe left foraminal stenosis L3 4, left lower extremity radiculopathy, inability to ambulate, degenerative disc disease L3 4 Postoperative Diagnosis: Same Procedure: Laminectomy and decompression L3 4 Discectomy for decompression L3 4 Use of fluoroscopic guidance Surgeon: Dr. Joshi Toll Operator: Lázaro GARCIAS who is present throughout the entire the case persistence during positioning, dissection, exposure, visualization, and all crucial elements of the case as well as closure. Anesthesia: General anesthesia Estimated blood loss: approximately 100 mL Complications: None apparent Components implanted: none Disposition: To recovery room in good stable condition. OPERATIVE INDICATIONS The patient has been having issues in their lower back and lower extremities. he was having inability to ambulate due to the pain in his back and over his left lower extremity at the anterior thigh or an L4 distribution. The patient had had this issue for years ago in the past and did well with conservative treatment. He attempted aggressive conservative care with medications time and with interventional pain management. He underwent epidural steroid injections with the pain management service here but was not having any prolonged benefit at all despite initially feeling that he may have had some benefit the first couple of hours after the procedure. The patient has been through conservative treatment. he was not able to get up or mobilize or ambulate himself to the bathroom due to his severe pain at his left lower extremity radiculopathy. His symptoms correlated well with findings of a disc herniation at L3 4. We discussed various treatment options including surgery, and the patient wishes to proceed with surgery We discussed the risk, patient's alternatives and benefits of surgery including but not limited to, risk of bleeding risk of infection, risk of need for further surgery, risk of decreased, loss of motion, loss of function, nerve damage, paralysis, heart attack, blindness and . the patient does have history of cardiac issues and had new onset atrial fibrillation. He was evaluated cardiology and is at some increased risk for his surgery due to the cardiac issues and he understands these issues and has decided to proceed with surgery. OPERATIVE SUMMARY After discussing all the risks, patient alternatives and benefits at length, the patient elected to proceed with surgical intervention, signed informed consent, and presented for their procedure. The patient was seen and examined in the preoperative holding area and the surgical site was marked. The patient was given antibiotics and brought to the operating room. The patient was sedated and intubated by anesthesia in standard fashion. The patient was positioned on to the operating room table in a prone position on the appropriate frame which was well-padded and well molded. We were careful to pad any bony prominences and pressure points. We were careful to maintain the patient's cervical spine and good neutral alignment and position throughout. The patient was prepped and draped in a normal standard fashion. An appropriate timeout and keystone protocol performed. We were able to proceed with the surgery. Fluoroscopy was utilized to establish the appropriate level. The local wound area was infiltrated with local anesthetic. An incision was made at the midline longitudinally over the appropriate levels at L3 4. Dissection was taken down subcutaneously to the level of the fascia which was split midline. Dissection was taken over the lamina. Intraoperative fluoroscopy was taken which showed a marker at the appropriate level at L3 4 . With the appropriate level positively confirmed, we were able to proceed with laminectomy. The wound was copiously irrigated and suctioned dry as had been done periodically throughout the case. I performed a laminectomy with a combination of curettes and a high-speed bur and Kerrison rongeurs. A small medial facetectomy was performed again further access. A partial foraminotomy was also performed. Portions of the ligamentum flavum were taken down to expose the dura and traversing nerve root. I was able to mobilize the traversing nerve root and gain access to the disc space. Note was made of obvious compression from the disc. the traversing nerve root was adhered to the disc to some degree and is able to take down the scar tissue formation and mobilized nerve roots some degree. Protecting the soft tissue structures, a small annulotomy was established. I was able to perform discectomy and remove any extruded disc fragments and any loose fragments from within the disc itself. there was extruded disc fragments which were removed giving good decompression and relieving tension at the nerve root. There was severe disc degeneration and desiccation noted. There is some severedisc desiccation noted. I tried to preserve the disc annulus that appeared stable. There were no further extruded fragments noted. The nerve root was freely mobile.There is no evidence of dural tear or leak. Good hemostasis maintained. The wound was copiously irrigated and suctioned dry. Good decompression and discectomy was noted. We were able to proceed with closure. The fascia was closed for a watertight closure. The subcuticular tissue was closed with absorbable suture. The wound was cleaned and dried and dressed with the appropriate dressing. The drapes were broken down. The patient was gently rolled back onto their hospital bed being careful to maintain their cervical spine and good neutral alignment and position. They were woken up by anesthesia, extubated, and brought to the recovery room in good stable condition. The patient will be admitted to the hospital for observation and for appropriate postoperative care, medical management and monitoring. We will continue to follow them closely about the postoperative course.
--- NOTE | 2017-09-14 17:18 | FL ---
EXAMINATION TYPE: FL guidance operating room DATE OF EXAM: 09/14/2017 FLUOROSCOPY Fluoroscopy time of 5 seconds was used during lumbar laminectomy needle placement. 1 image/s documen t/s the procedure.
[2017-09-14] MEDS ORDERED: HYDROmorphone 1 MG/ML 1 ML SYRINGE IVP ONE ×2 (18:00→18:15)
[2017-09-14] MEDS ORDERED: LACTATED RINGERS 1,000 ML IV ONE (18:49)
[2017-09-14 20:04] LABS: Glucose,Whole Blood 109 mg/dL (75-99)
[2017-09-14] MEDS: SODIUM CHLORIDE 0.9% 1,000 ML IV SCH (20:21)
[2017-09-14] MEDS: DOCUSATE 100 MG CAP PO SCH (21:14)
[2017-09-14] MEDS: HYDROmorphone 0.5 MG/0.5 ML SYRINGE IVP PRN (22:36)
[2017-09-15] MEDS: ceFAZolin IN SWFI 2 GM/20 ML SYRINGE IVP SCH ×2 (00:41→09:16)
[2017-09-15] MEDS: methylPREDNISolone SOD SUCCI 125 MG/2 ML VIAL IV SCH ×2 (00:59→07:34)
[2017-09-15] MEDS: HYDROmorphone 0.5 MG/0.5 ML SYRINGE IVP PRN (02:49)
[2017-09-15 07:29] LABS: Glucose,Whole Blood 105 mg/dL (75-99)
[2017-09-15] MEDS: INSULIN ASPART 100 UNIT/ML 1 ML 10 ML VIAL SQ SCH ×2 (07:29→12:49)
[2017-09-15 07:32] VITALS: TEMP 98.1
[2017-09-15] MEDS: HEPARIN SODIUM,PORCINE 5,000 UNIT/ML 1 ML VIAL SQ SCH (07:33)
[2017-09-15] MEDS: LISINOPRIL 2.5 MG TAB PO SCH (07:35)
[2017-09-15] MEDS: METOPROLOL TARTRATE 25 MG TAB PO SCH (07:36)
[2017-09-15] MEDS: PANTOPRAZOLE 40 MG TABLET PO SCH (07:36)
[2017-09-15] MEDS: ALLOPURINOL 100 MG TAB PO SCH (07:36)
[2017-09-15] MEDS: SPIRONOLACTONE 25 MG TAB PO SCH (07:36)
[2017-09-15] MEDS: ASPIRIN 81 MG PO SCH (07:36)
[2017-09-15] MEDS: SODIUM CHLORIDE 0.9% 1,000 ML IV SCH (09:16)
--- NOTE | 2017-09-15 10:39 | P.PN ---
Subjective Progress Note Date: 09/15/17 Patient is a 67-year-old male with a known history of hypertension and GERD and history of CT admitted to the hospital with severe intractable back pain and radiculopathy. Patient has been having symptoms for the past 6 months and has not been relieved with pain medications and steroids. Currently patient is nonambulatory and cannot raise his head or sit up on the bed and is also having pain radiating down the legs. Patient does have difficulty urination but no incontinence. 09/12/2017 Patient had epidural steroid injection on 09/11/2017 without much improvement in symptoms. Orthopedic surgery is following. Currently denied any chest pain or shortness of breath. No nausea vomiting or abdominal pain. Currently patient is on methylprednisolone 60 mg every 8 hours. 09/13/2017 Patient is still complaining of bilateral lower extremities pain down the legs and unable to move. Pain medications and IV steroids have not been helpful for much. Orthopedics has seen the patient and recommended laminectomy and disc decompression. Planning for procedure tomorrow. Patient currently denied any complaints of chest pain or shortness of breath. No nausea vomiting or abdominal pain. No headache or dizziness or lightheadedness. Denied any problems with urinary retention or bowel movement. Above notes per Dr. Crawford, covering for Dr. Encarnacion 09/14/2017 Patient seen and examined at the bedside. Patient underwent lumbar epidural steroid injection at L3-4 on 09/11/2017. Patient reports no significant improvement in his symptoms. Patient is scheduled for L3-4 laminectomy and decompression with discectomy this afternoon by Dr. Joshi. Patient denies chest pain or pressure. Denies shortness of breath or coughing. Denies nausea or vomiting. Patient states he has been voiding without difficulty. He does report he has not had a bowel movement in a couple days. Vital signs have been stable. Addendum entered and electronically signed by Nallely Mari NP-C 09/14/17 12: 15: EKG reveals atrial fibrillation, rate controlled. Patient denies history of irregular heart rhythm. He reports a history of CT with placement of two stents. Patient states he takes a baby aspirin daily. Last echo completed in [facility] is from 2016 which reveals EF of 40-45%. Patient states he sees Dr. Fontenot outpatient. He states he was supposed to see cardiology outpatient 6 months ago but was unable to due to insurance reasons. Dr. Encarnacion would like cardiology consult before proceeding with surgery. will obtain echo. still waiting results of lab work. 09/15/2017 Patient seen and examined at the bedside. Patient underwent laminectomy and decompression L3-L4 and discectomy for decompression L3-4. Patient is postop day #1. Patient states his pain is significantly improved this morning. He is anxious to get out of bed and start ambulating. Patient remains in atrial fibrillation with controlled ventricular rate. Echocardiogram completed yesterday revealed worsening LV function with an estimated ejection fraction of 35-40%. His metoprolol was increased to 25 mg twice a day per cardiology. Patient denies chest pain or pressure. Denies shortness of breath or cough. Denies nausea or vomiting. He states his appetite is good. He ate his breakfast this morning and tolerated well. Blood pressure has been stable with systolic blood pressures ranging in the 130s to 140s. He is on room air with oxygen saturations greater than 92%. He is afebrile. Blood sugars have been well controlled. TSH 0.448. Free T4 0.69. Objective - Vital Signs Vital signs: Vital Signs Temp 98.1 F 09/15/17 07:31 Pulse 90 09/15/17 07:31 Resp 12 09/15/17 07:31 BP 138/91 09/15/17 07:31 Pulse Ox 95 09/15/17 07:31 Intake & Output 09/14/17 09/15/17 09/15/17 18:59 06:59 18:59 Intake Total 1151 Output Total 1220 700 400 Balance -69 -700 -400 Intake: IV 1151 Output: Urine 1100 700 400 Estimated Blood Loss 120 Other: Voiding Method Urinal # Voids 3 1 - Exam GENERAL: This is a 67-year-old male in no apparent distress at the time of examination. Pleasant and cooperative. HEENT: Head is atraumatic, normocephalic. Pupils are equal, round, and reactive to light. Sclerae anicteric. Conjunctivae are clear. Mucus membranes of the mouth are moist. Neck is supple. RESPIRATORY: Clear to ausculation. No wheezes, rales, or rhonchi. No use of accessory muscles. Patient maintaining oxygen saturation greater than 92%. No chest wall tenderness is noted on palpation or with deep breathing. CARDIOVASCULAR: Irregular rhythm. Monitor reveals atrial fibrillation. S1 and S2 noted. No systolic or diastolic murmur auscultated. No JVD noted. No S3 or S4 noted. GASTROINTESTINAL: No distention noted. Abdomen soft and round. Normal active bowel sounds auscultated x 4 quadrants. No pain or tenderness noted upon palpation. INTEGUMENTARY: No cyanosis. No jaundice. No rashes noted. No cellulitis noted. EXTREMITIES: 2+ peripheral pulses. No evidence of peripheral edema. No calf tenderness noted. NEUROLOGIC: Cranial nerves II-XII intact. PSYCHIATRIC: Awake, alert, and oriented X 3. Appropriate affect. Intact judgement and insight. - Labs CBC & Chem 7: 09/14/17 11:11 09/14/17 11:11 Labs: Abnormal Lab Results - Last 24 Hours (Table) 09/14/17 09/14/17 09/14/17 Range/Units 11:11 11:11 11:11 Plt Count 132 L (150-450) k/uL Neutrophils # 8.1 H (1.3-7.7) k/uL Lymphocytes # 0.4 L (1.0-4.8) k/uL Chloride 109 H (98-107) mmol/L BUN 39 H (9-20) mg/dL Glucose 108 H (74-99) mg/dL POC Glucose (mg/dL) (75-99) mg/dL TSH 0.448 L (0.465-4.680) mIU/L Free T4 0.69 L (0.78-2.19) ng/dL 09/14/17 09/14/17 09/15/17 Range/Units 12:00 20:02 07:28 Plt Count (150-450) k/uL Neutrophils # (1.3-7.7) k/uL Lymphocytes # (1.0-4.8) k/uL Chloride (98-107) mmol/L BUN (9-20) mg/dL Glucose (74-99) mg/dL POC Glucose (mg/dL) 115 H 109 H 105 H (75-99) mg/dL TSH (0.465-4.680) mIU/L Free T4 (0.78-2.19) ng/dL Assessment and Plan Plan: ASSESSMENT: Acute on chronic lower back pain with left lower extremity radiculopathy and L3- 4 herniated nucleus pulposus, status post laminectomy and decompression L3-L4 and discectomy for decompression L3-4 Inability to ambulate, secondary to above, improved Lumbar degenerative disc disease with degenerative scoliosis New onset atrial fibrillation, ventricular rate controlled Chronic systolic congestive heart failure, ejection fraction 35-40% Steroid-induced hyperglycemia, improving Coronary artery disease with history of stent placement History of gout Hypertension PLAN: Orthopedics on consult. Appreciate recommendations and input Pain control. Activity as tolerated. Cardiology on consult. Appreciate recommendations and input Anticoagulation per cardiology recommendations Decrease IV steroids to 40 mg every 12 hours. DC tomorrow and transition to oral. Home meds as appropriate Monitor labs GI/DVT prophylaxis Monitor vital signs and address as appropriate Dr. Pacheco's group will be covering for Dr. Encarnacion starting tomorrow, 09/16/2017 Nurse practitioner note has been reviewed by physician. Signing provider agrees with the documented findings, assessment, and plan of care.
[2017-09-15 11:49] LABS: Glucose,Whole Blood 125 mg/dL (75-99)
--- NOTE | 2017-09-15 12:23 | P.PN ---
Progress Note - Text Progress Note Date: 09/15/17 Postoperative day #1 Patient is seen and examined today at bedside. The patient has some pain around the surgical site as expected. Pain is being controlled with medication. He feels his legs are doing much better. His left leg has had significant improvement. He has been able to get up out of bed and sitting at bedside. He is trying to walk short distances and feels that he is significant improved with his surgery thus far. Physical Exam Afebrile with stable vital signs Abdomen is soft nontender. Chest has good excursion deep and space expiration The incision site is clean dry and intact. No erythema there is no purulence. There is small amount of bloody drainage on the site but it is clean and there is no active drainage. He has sustained dorsal flexion or flexion and EHL intact Extremities have not had neurologic change from prior to surgery. Calves and thighs were soft nontender without evidence of DVT. Assessment/Plan Postoperative day #1 status post laminectomy decompression with discectomy L3 4 for his disc herniation at L3 4 with lower extremity radiculopathy The patient has had good improvement with his surgery thus far. He feels his legs are significant only improved and he is more mobile today. He feels like he would be able to go home today if he is able to walk around a little bit more and I think that is reasonable. Patient is progressing as expected from the surgery. We will continue to increase the patient's mobilization with therapy. We will continue pain control with oral or IV medications. From an orthopedic spine standpoint the patient has had good improvement with his surgery and he is okay for discharge home today if he is stable from a medicine and cartilage he standpoint. He is scheduled see me back in the office in approximately 1 week I given him a prescription for pain medication and run MAPS for him and I think the pain medication will be appropriate and I can continue to manage that throughout his postoperative period as an outpatient. I answered the patient's questions best my ability in a language that he can understand he is agreeable. We'll plan see him back next week.
--- NOTE | 2017-09-15 14:15 | P.DS ---
Providers Date of admission: 09/12/17 17:22 Expected date of discharge: 09/15/17 Attending physician: Vijay Encarnacion Consults: 09/09/17 18:31 Consult Physician Urgent Consulting Provider: Yvette Joshi Consult Reason/Comments: Back pain with radiculopathy Do you want consulting provider notified?: Yes 09/10/17 21:25 Consult Physician Urgent Consulting Provider: Miguel Bartlett Consult Reason/Comments: possible REZA at L3-4 Do you want consulting provider notified?: Yes 09/14/17 11:59 Consult Physician Routine Consulting Provider: Wanda Garcias Consult Reason/Comments: surgical clearance, new onset afib Do you want consulting provider notified?: Yes Primary care physician: Vijay Encarnacion [facility] Course: 67-year-old male who presented to the ER due to severe back pain and inability to ambulate. He was started on IV steroids and orthopedics was consulted. Anesthesia was also consulted for pain management. Patient underwent lumbar epidural steroid injection at L3-4 on 09/11/2017. After 2 days, the patient reported no significant improvement in his symptoms and was non- ambulatory. The patient was scheduled for surgery with Dr. Joshi. In the process of medically clearing the patient for surgery, a 12-lead EKG was performed which revealed atrial fibrillation, which was new for patient. Dr. Encarnacion requested cardiology consult before clearing the patient for surgery. An echocardiogram was completed which revealed worsening LV function with an estimated ejection fraction of 35-40%. His previous echo was from 2016 which revealed an ejection fraction of 40-45%. His metoprolol was increased to 25 mg twice a day per cardiology. The patient underwent L3-4 laminectomy and decompression with discectomy on 09/14/[address] Joshi. The patient's pain improved after surgery and he has been ambulatory. His IV steroids have been weaned as tolerated. He will be discharged home on a prednisone taper. He was cleared for discharge home from cardiology and orthopedic standpoint. He was started on anticoagulation per cardiology in the form of Xarelto. He is to follow up on an outpatient basis. He is stable at the time of discharge. DISCHARGE DIAGNOSIS: Acute on chronic lower back pain with left lower extremity radiculopathy and L3- 4 herniated nucleus pulposus, status post laminectomy and decompression L3-L4 and discectomy for decompression L3-4 Inability to ambulate, secondary to above, improved Lumbar degenerative disc disease with degenerative scoliosis New onset atrial fibrillation, ventricular rate controlled Chronic systolic congestive heart failure, ejection fraction 35-40% Steroid-induced hyperglycemia, improving Coronary artery disease with history of stent placement History of gout Hypertension Nurse practitioner note has been reviewed by physician. Signing provider agrees with the documented findings, assessment, and plan of care. Plan - Discharge Summary Discharge Rx Participant: Yes New Discharge Prescriptions: New Rivaroxaban [Xarelto] 20 mg PO DAILY #30 tab Hydrocodone/Acetaminophen [[place] 7.5-325] 1 tab PO Q6H PRN #90 tab PRN Reason: Severe Pain Metoprolol Tartrate [Lopressor] 25 mg PO BID #60 tab predniSONE See Taper PO DIRECTED #30 tab Continue Lisinopril [Zestril] 2.5 mg PO DAILY Aspirin 81 mg PO DAILY Acetaminophen [Tylenol] 500 mg PO Q4-6H PRN #20 tab PRN Reason: Pain Spironolactone [Aldactone] 12.5 mg PO DAILY Allopurinol [Zyloprim] 100 mg PO DAILY Discontinued predniSONE 50 mg PO DAILY #5 tablet Metoprolol Tartrate [Metoprolol Tartrate] 25 mg PO DAILY Discharge Medication List Aspirin 81 mg PO DAILY 10/04/14 [History] Lisinopril [Zestril] 2.5 mg PO DAILY 10/04/14 [History] Acetaminophen [Tylenol] 500 mg PO Q4-6H PRN #20 tab 09/07/17 [Rx] Allopurinol [Zyloprim] 100 mg PO DAILY 09/09/17 [History] Spironolactone [Aldactone] 12.5 mg PO DAILY 09/09/17 [History] Hydrocodone/Acetaminophen [[place] 7.5-325] 1 tab PO Q6H PRN #90 tab 09/15/17 [Rx] Metoprolol Tartrate [Lopressor] 25 mg PO BID #60 tab 09/15/17 [Rx] Rivaroxaban [Xarelto] 20 mg PO DAILY #30 tab 09/15/17 [Rx] predniSONE See Taper PO DIRECTED #30 tab 09/15/17 [Rx] Follow up Appointment(s)/Referral(s): Yvette Joshi DO [Doctor of Osteopathic Medicine] - 09/22/17 2:00 pm () Vijay Encarnacion DO [Primary Care Provider] - 09/30/17 11:20 am Aleksandar Montes MD [STAFF PHYSICIAN] - 10/12/17 3:00 pm Activity/Diet/Wound Care/Special Instructions: Keep site clean. May shower with waterproof Tegaderm intact. On Thursday, the patient may remove dressing and then may shower with area uncovered. The Steri-Strips intact and allow them to fray off on their own. Do not soak in a tub. May ambulate to tolerance. No repetitive bending twisting or lifting. No heavy or rigorous activity. Discharge Disposition: HOME SELF-CARE
[2017-09-15 15:23] VITALS: BP 129/82; PULSE 68; RESP 16
[2017-09-15] MEDS ORDERED: RIVAROXABAN 20 MG TAB PO SCH (17:30)
[2017-09-15] MEDS ORDERED: methylPREDNISolone SOD SUCCI 40 MG/ML 1 ML VIAL IV SCH (21:00)
--- NOTE | 2017-09-16 17:49 | CDI ---
Last Revision, February 2017 Documentation Clarification Form Date: 09/16/17 From: Sujey Evan Kelsie Sams, Scouring Machine Operator Hours-8:30 am & 5 pm MGabriela Admit Date: 09/12/2017 5:22:00 PM Patient Name: Maco Barclay Visit Number: [id number] Discharge Date: 09/15/17 ATTENTION: The Clinical Documentation Specialists (CDI) and [facility] Coding Staff appreciate your assistance in clarifying documentation. Please respond to the clarification below the line at the bottom and electronically sign. The CDI & [facility] Coding staff will review the response and follow-up if needed. Please note: Queries are made part of the Legal Health Record. If you have any questions, please contact the author of this message via ITS. Dr. Wanda Garcias New atrial fibrillation with controlled ventriuclar response is documented in the 09/14 consult, 09/14 procedure note, PNs 09/14, 09/15 and DS. History/Risk Factors: CAD, Chr systolic CHF, ischemic cardiomyopathy, HTN Echo: atrial fibrillation Treatment: Lisinopril, aspirin and Aldactone and increase Lopressor In your professional opinion, can you please clarify the type of atrial fibrillation, if known? Chronic/Permanent Paroxysmal Persistent Other, please specify Unable to determine Please continue to document in your progress notes and discharge summary in order to capture severity of illness and risk of mortality. Include clinical findings that support your diagnosis. Atrial fibrillation, paroxysmal. MTDD
== END 2017-09-15 16:50 | disposition home or self-care (01) | DRG 519 ==
LOC: EC 16:28 → 4MS4W 18:31 → OBSVTOIN 09-12 17:22 → 3SUR 09-14 16:57
PROVIDERS: ADMIT Family Medicine; ATTEND Family Medicine
PROC: 3E0R3BZ Introduction of Anesthetic Agent into Spinal Canal, Percutaneous Approach (ICD-10-PCS; 2017-09-11)
PROC: B01BZZZ Fluoroscopy of Spinal Cord (ICD-10-PCS; 2017-09-11)
PROC: 3E0R33Z Introduction of Anti-inflammatory into Spinal Canal, Percutaneous Approach (ICD-10-PCS; principal; 2017-09-11 14:20)
PROC: 0ST20ZZ Resection of Lumbar Vertebral Disc, Open Approach (ICD-10-PCS; 2017-09-14)
PROC: 01NB0ZZ Release Lumbar Nerve, Open Approach (ICD-10-PCS; 2017-09-14)
DX: M51.16 Intervertebral disc disorders with radiculopathy, lumbar region (principal); I50.22 Chronic systolic (congestive) heart failure; Q60.0 Renal agenesis, unilateral; D69.6 Thrombocytopenia, unspecified; I11.0 Hypertensive heart disease with heart failure; M41.86 Other forms of scoliosis, lumbar region; I48.0 Paroxysmal atrial fibrillation; M48.061 Spinal stenosis, lumbar region without neurogenic claudication; I25.5 Ischemic cardiomyopathy; G89.29 Other chronic pain; R73.9 Hyperglycemia, unspecified; T38.0X5A Adverse effect of glucocorticoids and synthetic analogues, initial encounter; I25.10 Atherosclerotic heart disease of native coronary artery without angina pectoris; E78.5 Hyperlipidemia, unspecified; K21.9 Gastro-esophageal reflux disease without esophagitis; I25.2 Old myocardial infarction; M10.9 Gout, unspecified; H04.123 Dry eye syndrome of bilateral lacrimal glands; Z79.82 Long term (current) use of aspirin; Z79.899 Other long term (current) drug therapy; Z86.19 Personal history of other infectious and parasitic diseases; Z95.5 Presence of coronary angioplasty implant and graft; Z87.81 Personal history of (healed) traumatic fracture; Z95.828 Presence of other vascular implants and grafts; Z88.0 Allergy status to penicillin; Z87.891 Personal history of nicotine dependence; Z80.0 Family history of malignant neoplasm of digestive organs
CPT/HCPCS: 36415; 62323; 72131; 80048; 80053; 83036; 83735; 84439; 84443; 85025; 93306; 96374; 96375; 99285

== ENCOUNTER 2018-02-05 06:11 | Day surgery (SDC) | payer MEDICARE, OTHER ==
[2018-02-03 15:50] VITALS: BMI 32.1
[~2018-02-05 06:11] MED LIST: HYDROmorphone 1 MG/ML 1 ML SYRINGE IVP PRN; LACTATED RINGERS 1,000 ML IV SCH; LIDOCAINE 1% 20 ML VIAL (10MG/ML) FOR IV START INTRADERMA PRN; ONDANSETRON 4 MG/2 ML VIAL IVP ONE; Pre Op ABX Message 1 EACH MISC MISCELLANE ONE
[2018-02-05] MEDS ORDERED: LIDOCAINE 1% 20 ML VIAL (10MG/ML) FOR IV START INTRADERMA ONE (06:48)
[2018-02-05] MEDS ORDERED: ONDANSETRON 4 MG/2 ML VIAL IVP ONE (06:48)
[2018-02-05] MEDS ORDERED: DEXAMETHASONE SOD PHOSPHATE 10 MG/ML 1 ML VIAL IV ONE (06:48)
[2018-02-05] MEDS ORDERED: fentaNYL (PF) 50 MCG/ML 2 ML AMP IV ONE (06:50)
[2018-02-05] MEDS ORDERED: BUPIVACAINE (PF) 0.25% 30 ML VIAL SQ ONE ×2 (07:21→09:10)
[2018-02-05] MEDS ORDERED: PHENYLEPHRINE-0.9% NACL SYG 1 MG/10 ML SYRINGE ONE (08:14)
[2018-02-05] MEDS ORDERED: ePHEDrine SULFATE/0.9% NACL/PF 50 MG/5 ML SYRINGE IV ONE (08:14)
[2018-02-05] MEDS ORDERED: SUCCINYLCHOLINE CHLORIDE VIAL 200 MG/10 ML VIAL IV ONE (08:14)
[2018-02-05] MEDS ORDERED: MIDAZOLAM 2 MG/2 ML VIAL ONE (08:14)
[2018-02-05] MEDS ORDERED: ETOMIDATE 2 MG/ML 10 ML VIAL ONE (08:14)
[2018-02-05] MEDS ORDERED: LIDOCAINE 1% INJ 10MG/ML (20 ML MDV) ONE (08:14)
[2018-02-05] MEDS ORDERED: fentaNYL (PF) 50 MCG/ML 2 ML AMP ONE (08:14)
--- NOTE | 2018-02-05 09:31 | P.OP ---
Date of Procedure: 02/05/18 Procedure(s) Performed: PREOPERATIVE DIAGNOSIS: 1. Left knee lateral and medial meniscus tears 2. Left knee osteoarthritis, tricompartmental POSTOPERATIVE DIAGNOSIS: 1. Left knee lateral meniscus tear 2. Left knee medial meniscus tear 3. Left knee osteoarthritis, patellofemoral, grade III, medial grade III, lateral grade II 4. Degenerative adhesions left knee PROCEDURES PERFORMED: 1. Left knee arthroscopy, with partial lateral meniscectomy 10%, posterior horn 2. Arthroscopic partial medial meniscectomy 15 percent, posterior horn 3. Left knee arthroscopic chondroplasty of patellofemoral and medial compartments 4. Arthroscopic lysis of degenerative adhesions ANESTHESIA: compliance investigator: None COMPLICATIONS: none ESTIMATED BLOOD LOSS: Less than 10 ml DISPOSITION: To post-anesthesia care unit INDICATIONS: Mr. Barclay is a 67-year-old male with a history of left knee pain on mainly the medial side, but recurrent effusions as well. Patient presents to the operating room today for arthroscopy with trimming of the meniscus or repair as necessary as well as chondroplasty or smoothing of the articular surfaces. I have explained the procedure in detail as well as potential risks and complications as being inclusive of but not limited to: Bleeding, infection, scarring, discomfort, blood vessel and/or nerve damage, failure to relieve symptoms, persistence or recurrence and/or worsening of symptoms, blood clot, pulmonary embolism, limp, , and other risks, including the need for knee replacement. The consent form has been signed. PROCEDURE: After appropriate consent was obtained, the patient was taken to the operating room and placed supine on the operating table. General anesthesia was initiated. The knee was examined under anesthesia. Medial collateral, lateral collateral, anterior and posterior cruciate ligaments were all intact. Range of motion was 0 to 110 with mild crepitus in the patellofemoral compartment. Mild effusion but no soft tissue swelling was noted. Prepping and draping of the operative knee was performed in the usual sterile fashion using ChloraPrep. Care was taken that all pressure points were adequately padded. Leg hanson and pneumotourniquet were used. ``Time-out" was called according to [employer] standards, confirming patient identity, surgical procedure, side, and no antibiotics were administered per protocol. The surgical portals were placed directly next to the patellar tendon medially and laterally. Camera and instruments were carefully inserted into the knee and arthroscopy was performed. Patellofemoral joint was first inspected. Mild synovitis was seen, and was resected where it appeared particularly inflamed. Patellofemoral joint was noted to be arthritic, with grade 3 changes present over 100 %. Chondroplasty was performed using a shaver and radiofrequency probe, removing unstable cartilage elements and smoothing the surface to eliminate step-off. Less major changes were noted of the trochlea. Lateral compartment was then examined. Lateral meniscus tear was noted involving the mid zone and posterior horn and appeared to be a degenerative- type tear after visualization and probing. The meniscus tear was resected using a combination of basket forceps and shaver. Approximately 10 % of the meniscus was resected. The remaining meniscus was noted to be intact and stable. Hyaline cartilage showed grade 2 changes without need for chondroplasty. Medial compartment was then examined. Medial meniscus tear was noted involving the posterior horn and appeared to be a stellate/degenerative-type tear after visualization and probing. The meniscus tear was resected using a combination of basket forceps and shaver. Approximately 15 % of the meniscus was resected. The remaining meniscus was noted to be intact and stable. Hyaline cartilage showed high grade 3 changes over 75% of the surface. Cruciate ligaments were noted to be intact. No loose bodies or ganglion cysts were noted around the cruciate ligaments. Medial and lateral gutters showed no evidence of loose bodies, but some adhesions were present especially on the medial side and were resected with a shaver. Adhesions were also noted within the suprapatellar pouch medially, and the anterior compartment. These adhesions were taken down using a shaver. Portals were then closed with 4-0 Monocryl suture. A quantity of Marcaine solution was injected into the knee and around the portal sites. Steri-Strips were applied and tourniquet was deflated. Sterile dressing and light compressive dressing was applied using Webril and MOLLY wrap. Patient tolerated the procedure well and taken to recovery room in stable condition. Sponge and needle counts were correct.
[2018-02-05 09:36] VITALS: TEMP 96.9
[2018-02-05] MEDS ORDERED: HYDROcodone/APAP 7.5-325MG 1 EACH TAB PO ONE (11:16)
[2018-02-05 11:53] VITALS: BP 116/72; PULSE 64; RESP 20
== END 2018-02-05 12:15 | disposition home or self-care (01) ==
LOC: OR 06:11 → EDSTATUS 10:00 → OR 12:15
PROVIDERS: ATTEND Orthopaedic Surgery
DX: S83.242A Other tear of medial meniscus, current injury, left knee, initial encounter (principal); S83.282A Other tear of lateral meniscus, current injury, left knee, initial encounter; S83.252A Bucket-handle tear of lateral meniscus, current injury, left knee, initial encounter; X58.XXXA Exposure to other specified factors, initial encounter; M17.12 Unilateral primary osteoarthritis, left knee; M23.8X2 Other internal derangements of left knee; E78.5 Hyperlipidemia, unspecified; I25.10 Atherosclerotic heart disease of native coronary artery without angina pectoris; I13.10 Hypertensive heart and chronic kidney disease without heart failure, with stage 1 through stage 4 chronic kidney disease, or unspecified chronic kidney disease; N18.9 Chronic kidney disease, unspecified; Z87.891 Personal history of nicotine dependence; M10.9 Gout, unspecified; Z79.891 Long term (current) use of opiate analgesic; Z79.899 Other long term (current) drug therapy; I48.1 Persistent atrial fibrillation; I25.5 Ischemic cardiomyopathy; I47.2 Ventricular tachycardia; I25.2 Old myocardial infarction; Z79.01 Long term (current) use of anticoagulants; Z79.82 Long term (current) use of aspirin; Z88.0 Allergy status to penicillin; K21.9 Gastro-esophageal reflux disease without esophagitis
CPT/HCPCS: 29880; J2250; J0330; J1100; J2405; J2001; J3010; J1170; J2370

== ENCOUNTER 2020-06-21 18:14 | Inpatient (IN) | payer MEDICARE ==
--- NOTE | 2020-06-21 20:57 | XR ---
EXAMINATION TYPE: XR chest 1V portable DATE OF EXAM: 06/21/2020 COMPARISON: 06/16/2015 HISTORY: Chest pain TECHNIQUE: Single frontal view of the chest is obtained. FINDINGS: There is a partially consolidative opacity in the right lung base consistent with an acute pneumonic process. Left lung is clear. There is no pleural effusion or pneumothorax. Heart size is normal. The pulmonary vasculature is not congested. The osseous structures are intact. IMPRESSION: Partially consolidative opacity in the right lung base consistent with an acute pneumoni c process. Clinical correlation and follow-up to resolution is recommended.
[2020-06-21] MEDS ORDERED: ACETAMINOPHEN TAB 500 MG TAB PO STA (21:19)
[2020-06-21] MEDS ORDERED: IBUPROFEN 600 MG TAB PO STA (21:19)
--- NOTE | 2020-06-21 21:23 | ED ---
General Adult HPI - General Source: patient, RN notes reviewed Mode of arrival: ambulatory Limitations: no limitations <Albaro New - Last Filed: 06/21/20 22:04> - History of Present Illness -: days(s) Radiation: non-radiation Severity scale (1-10): 10 Quality: other (Severe shortness of breath) Consistency: constant Improves with: none Worsens with: none Associated Symptoms: confusion, shortness of breath, weakness Treatments Prior to Arrival: none <Keven Lindsey - Last Filed: 06/21/20 23:14> - General Chief complaint: Upper Respiratory Infection Stated complaint: Possible covid, sent by DR Rubin Seen by Provider: 06/21/20 20:36 - History of Present Illness Initial comments: Patient is 70-year-old male that comes in the emergency room after being sent by primary care due to increased shortness of breath and potential Covid. Patient states that he's been short of breath and has a cough for approximately the last week but has progressively gotten worse over the last 2 days. He was in mild to moderate respiratory distress sitting in bed during exam and interview. He did have a dry cough while answering questions. He was well-appearing and well- hydrated. He denied any pain or other complaints. He denied any chest pain h eadache nausea vomiting diarrhea constipation fatigue chills. (Albaro New) - Related Data Home Medications Medication Instructions Recorded Confirmed Allopurinol [Zyloprim] 100 mg PO DAILY 09/09/17 06/21/20 Rosuvastatin Calcium 5 mg PO HS 06/21/20 06/21/20 lisinopriL [Zestril] 2.5 mg PO HS 06/21/20 06/21/20 traMADol HCL 50 mg PO TID PRN 06/21/20 06/21/20 Previous Rx's Medication Instructions Recorded Metoprolol Tartrate [Lopressor] 25 mg PO BID #60 tab 09/15/17 Allergies Allergy/AdvReac Type Severity Reaction Status Date / Time Penicillins Allergy Unknown Verified 06/21/20 21:33 Review of Systems ROS Other: All systems not noted in ROS Statement are negative. <Albaro New - Last Filed: 06/21/20 22:04> ROS Other: All systems not noted in ROS Statement are negative. <Keven Lindsey - Last Filed: 06/21/20 23:14> ROS Statement: Those systems with pertinent positive or pertinent negative responses have been documented in the HPI. 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), gout, Last Myocardial Infarction Date:: 05-09-06 History of Any Multi-Drug Resistant Organisms: None Reported Past Surgical History: Back Surgery, Heart Catheterization With Stent, Hernia Repair, Orthopedic Surgery Additional Past Surgical History / Comment(s): LT INGUINAL HERNIA, LT EYE SX TO REPAIR THE BROKEN ORBIT HAS METAL IN PLACE, 2 cardiac stents, surgery for fx rt foot Past Anesthesia/Blood Transfusion Reactions: Previous Problems w/ Anesthesia Additional Past Anesthesia/Blood Transfusion Reaction / Comment(s): one time "was not very nice when coming out of anesthesia" Date of Last Stent Placement:: 05-09-06 Past Psychological History: No Psychological Hx Reported Smoking Status: Never smoker Past Alcohol Use History: None Reported Past Drug Use History: None Reported - Past Family History Father Family Medical History: Cancer Additional Family Medical History / Comment(s): COLON CANCER <Albaro New - Last Filed: 06/21/20 22:04> General Exam Limitations: no limitations General appearance: alert, in no apparent distress, in distress (While to moderate) Head exam: Present: atraumatic, normocephalic, normal inspection Eye exam: Present: normal appearance, PERRL, EOMI. Absent: scleral icterus, conjunctival injection, periorbital swelling ENT exam: Present: normal exam, mucous membranes moist Neck exam: Present: normal inspection. Absent: tenderness, meningismus, lymphadenopathy Respiratory exam: Present: normal lung sounds bilaterally, other (Patient does have nonrebreather on 15 L/m). Absent: respiratory distress, wheezes, rales, rhonchi, stridor Cardiovascular Exam: Present: regular rate, normal rhythm, normal heart sounds. Absent: systolic murmur, diastolic murmur, rubs, gallop, clicks GI/Abdominal exam: Present: soft, normal bowel sounds. Absent: distended, tenderness, guarding, rebound, rigid Extremities exam: Present: normal inspection, full ROM, normal capillary refill. Absent: tenderness, pedal edema, joint swelling, calf tenderness Neurological exam: Present: alert, oriented X3, CN II-XII intact Psychiatric exam: Present: normal affect, normal mood Skin exam: Present: warm, dry, intact, normal color. Absent: rash <Albaro New - Last Filed: 06/21/20 22:04> General appearance: alert, anxious Head exam: Present: atraumatic, normocephalic, normal inspection Eye exam: Present: normal appearance, PERRL, EOMI. Absent: scleral icterus, con junctival injection, periorbital swelling ENT exam: Present: normal exam, mucous membranes moist Neck exam: Present: normal inspection. Absent: tenderness, meningismus, lymphadenopathy Respiratory exam: Present: respiratory distress, accessory muscle use, decreased breath sounds, prolonged expiratory. Absent: wheezes, rales, rhonchi, stridor Cardiovascular Exam: Present: regular rate, normal rhythm, normal heart sounds. Absent: systolic murmur, diastolic murmur, rubs, gallop, clicks GI/Abdominal exam: Present: soft, normal bowel sounds. Absent: distended, tenderness, guarding, rebound, rigid Extremities exam: Present: normal inspection, full ROM, normal capillary refill. Absent: tenderness, pedal edema, joint swelling, calf tenderness Back exam: Present: normal inspection Neurological exam: Present: alert, oriented X3, CN II-XII intact Psychiatric exam: Present: normal affect, normal mood Skin exam: Present: warm, dry, intact, normal color. Absent: rash <Keven Lindsey - Last Filed: 06/21/20 23:14> Course <Keven Lindsey - Last Filed: 06/21/20 23:14> Vital Signs 06/21/20 06/21/20 20:20 22:00 Temperature 99.9 F H Pulse Rate 68 71 Respiratory 22 24 Rate Blood Pressure 127/80 140/80 O2 Sat by Pulse 80 L 88 L Oximetry - Reevaluation(s) Reevaluation #1: 06/21/20 23:12 Medical record is reviewed (Keven Lindsey) Reevaluation #2: 06/21/20 23:13 Patient's severe distress recall requiring significant supportive pulse ox (Keven Lindsey) Medical Decision Making - Lab Data Result diagrams: 06/21/20 21:10 - EKG Data -: EKG Interpreted by Ks EKG shows normal: sinus rhythm Rate: normal - Radiology Data Radiology results: report reviewed, image reviewed <Albaro New - Last Filed: 06/21/20 22:04> - Lab Data Result diagrams: 06/21/20 21:10 06/21/20 21:10 - Radiology Data Radiology results: report reviewed (Chest x-rays positive for pneumonia), image reviewed <Keven Lindsey - Last Filed: 06/21/20 23:14> - Medical Decision Making Patient is a 70-year-old male sent by primary care to rule out Covid. EKG, monitoring manager, labs, 1000 mg of Tylenol, 600 mg of Motrin, nonrebreather ordered. Labs: D-dimer 2.41, Covid-positive. (Albaro New) 70 male with severe coronavirus pneumonia, patient be admitted on nonrebreather with supplemental O2 and persistent monitoring (Keven Lindsey) - Lab Data Lab Results 06/21/20 06/21/20 06/21/20 Range/Units 21:10 21:10 21:10 WBC 6.5 (3.8-10.6) k/uL RBC 5.14 (4.30-5.90) m/uL Hgb 15.7 (13.0-17.5) gm/dL Hct 45.1 (39.0-53.0) % MCV 87.6 (80.0-100.0) fL MCH 30.5 (25.0-35.0) pg MCHC 34.8 (31.0-37.0) g/dL RDW 12.7 (11.5-15.5) % Plt Count 128 L (150-450) k/uL MPV 9.1 Neutrophils % 88 % Lymphocytes % 6 % Monocytes % 5 % Eosinophils % 0 % Basophils % 0 % Neutrophils # 5.8 (1.3-7.7) k/uL Lymphocytes # 0.4 L (1.0-4.8) k/uL Monocytes # 0.3 (0-1.0) k/uL Eosinophils # 0.0 (0-0.7) k/uL Basophils # 0.0 (0-0.2) k/uL PT 10.9 (9.0-12.0) sec INR 1.0 (<1.2) APTT 30.3 H (22.0-30.0) sec D-Dimer 2.41 H (<0.60) mg/L FEU Sodium 131 L (137-145) mmol/L Potassium 4.7 (3.5-5.1) mmol/L Chloride 100 (98-107) mmol/L Carbon Dioxide 20 L (22-30) mmol/L Anion Gap 11 mmol/L BUN 44 H (9-20) mg/dL Creatinine 1.83 H (0.66-1.25) mg/dL Est GFR (CKD-EPI)AfAm 43 (>60 ml/min/1.73 sqM) Est GFR (CKD-EPI)NonAf 37 (>60 ml/min/1.73 sqM) Glucose 115 H (74-99) mg/dL Plasma Lactic Acid Rosendo (0.7-2.0) mmol/L Calcium 8.7 (8.4-10.2) mg/dL Magnesium 2.3 (1.6-2.3) mg/dL Total Bilirubin 1.7 H (0.2-1.3) mg/dL AST 205 H (17-59) U/L ALT 117 H (4-49) U/L Alkaline Phosphatase 94 (38-126) U/L Lactate Dehydrogenase 2411 H (313-618) U/L C-Reactive Protein 158.4 H (<10.0) mg/L Total Protein 6.7 (6.3-8.2) g/dL Albumin 3.8 (3.5-5.0) g/dL Coronavirus (PCR) (Not Detectd) 06/21/20 06/21/20 Range/Units 21:10 21:10 WBC (3.8-10.6) k/uL RBC (4.30-5.90) m/uL Hgb (13.0-17.5) gm/dL Hct (39.0-53.0) % MCV (80.0-100.0) fL MCH (25.0-35.0) pg MCHC (31.0-37.0) g/dL RDW (11.5-15.5) % Plt Count (150-450) k/uL MPV Neutrophils % % Lymphocytes % % Monocytes % % Eosinophils % % Basophils % % Neutrophils # (1.3-7.7) k/uL Lymphocytes # (1.0-4.8) k/uL Monocytes # (0-1.0) k/uL Eosinophils # (0-0.7) k/uL Basophils # (0-0.2) k/uL PT (9.0-12.0) sec INR (<1.2) APTT (22.0-30.0) sec D-Dimer (<0.60) mg/L FEU Sodium (137-145) mmol/L Potassium (3.5-5.1) mmol/L Chloride (98-107) mmol/L Carbon Dioxide (22-30) mmol/L Anion Gap mmol/L BUN (9-20) mg/dL Creatinine (0.66-1.25) mg/dL Est GFR (CKD-EPI)AfAm (>60 ml/min/1.73 sqM) Est GFR (CKD-EPI)NonAf (>60 ml/min/1.73 sqM) Glucose (74-99) mg/dL Plasma Lactic Acid Rosendo 1.8 (0.7-2.0) mmol/L Calcium (8.4-10.2) mg/dL Magnesium (1.6-2.3) mg/dL Total Bilirubin (0.2-1.3) mg/dL AST (17-59) U/L ALT (4-49) U/L Alkaline Phosphatase (38-126) U/L Lactate Dehydrogenase (313-618) U/L C-Reactive Protein (<10.0) mg/L Total Protein (6.3-8.2) g/dL Albumin (3.5-5.0) g/dL Coronavirus (PCR) Detected A (Not Detectd) - EKG Data EKG Comments: Ventricular rate 72 bpm, AR interval 138 ms, QRS duration 90 ms, QT/QTC 374/409 ms, PareT axes 18/-30/-13. Sinus rhythm with fusion complexes and premature atrial complexes, left axis deviation, possible lateral infarct, age undetermined. Abnormal ECG. (Albaro New) - Radiology Data Chest x-ray: Partially consolidative opacity in the right lung base consistent with an acute pneumonic process. Clinical correlation follow-up to resolution is recommended. (Albaro New) Critical Care Time Critical Care Time: Yes Total Critical Care Time: 31 <Keven Lindsey - Last Filed: 06/21/20 23:14> Disposition <Albaro New - Last Filed: 06/21/20 22:04> Is patient prescribed a controlled substance at d/c from ED?: No <Keven Lindsey - Last Filed: 06/21/20 23:14> Clinical Impression: Coronavirus infection, Fever, Pneumonia due to COVID-19 virus, Hypoxia Disposition: ADMITTED IP TO THIS HOSP Condition: Serious Referrals: Vijay Encarnacion DO [Primary Care Provider] - 1-2 days
[2020-06-21 21:24] LABS: Basophils % (A) 0 %; Eosinophils % (A) 0 %; HCT 45.1 % (39.0-53.0); HGB 15.7 gm/dL (13.0-17.5); Lymphocytes # (A) 0.4 k/uL (1.0-4.8); Lymphocytes % (A) 6 %; MCH 30.5 pg (25.0-35.0); MCHC 34.8 g/dL (31.0-37.0); MCV 87.6 fL (80.0-100.0); Mean Platelet Volume 9.1; Monocytes # (A) 0.3 k/uL (0-1.0); Monocytes % (A) 5 %; Neutrophils # (A) 5.8 k/uL (1.3-7.7); Neutrophils % (A) 88 %; Platelet Count 128 k/uL (150-450); RBC 5.14 m/uL (4.30-5.90); RDW 12.7 % (11.5-15.5); WBC 6.5 k/uL (3.8-10.6)
[2020-06-21 21:39] LABS: Partial Thromboplastin Time 30.3 sec (22.0-30.0); Prothrombin Time 10.9 sec (9.0-12.0)
[2020-06-21 21:41] LABS: Albumin 3.8 g/dL (3.5-5.0); Calcium 8.7 mg/dL (8.4-10.2); Magnesium 2.3 mg/dL (1.6-2.3); Potassium 4.7 mmol/L (3.5-5.1); Total Bilirubin 1.7 mg/dL (0.2-1.3); Total Protein 6.7 g/dL (6.3-8.2)
[2020-06-21 21:46] LABS: D-Dimer 2.41 mg/L FEU (<0.60)
[2020-06-21 22:43] LABS: C Reactive Protein 158.4 mg/L (<10.0)
[2020-06-21] MEDS ORDERED: NALOXONE 0.4 MG/ML 1 ML VIAL IV PRN (23:10)
[2020-06-21] MEDS ORDERED: ALBUTEROL HFA INHALER INHALATION STA (23:10)
[2020-06-21] MEDS ORDERED: DEXAMETHASONE SOD PHOSPHATE 10 MG/ML 1 ML VIAL IV STA (23:10)
[2020-06-21] MEDS ORDERED: HEPARIN SODIUM 1,000 UN/ML (10ML VL) IV PRN (23:18)
[2020-06-21] MEDS ORDERED: HEPARIN SODIUM 1,000 UN/ML (10ML VL) IV ONE (23:18)
[2020-06-21] MEDS: MORPHINE SULFATE 4 MG/ML SYRINGE IV PRN (23:51)
[2020-06-21] MEDS: HEPARIN SOD,PORK IN 0.45% NACL 25,000 UNIT in 0.45% NACL 1 250ML.BAG IV SCH (23:59)
[2020-06-22 05:47] LABS: Basophils % (A) 0 %; Eosinophils % (A) 0 %; HCT 39.5 % (39.0-53.0); HGB 13.5 gm/dL (13.0-17.5); Lymphocytes # (A) 0.4 k/uL (1.0-4.8); Lymphocytes % (A) 7 %; MCH 30.2 pg (25.0-35.0); MCHC 34.1 g/dL (31.0-37.0); MCV 88.4 fL (80.0-100.0); Mean Platelet Volume 9.5; Monocytes # (A) 0.2 k/uL (0-1.0); Monocytes % (A) 5 %; Neutrophils # (A) 4.3 k/uL (1.3-7.7); Neutrophils % (A) 87 %; Platelet Count 102 k/uL (150-450); RBC 4.47 m/uL (4.30-5.90); RDW 13.3 % (11.5-15.5); WBC 4.9 k/uL (3.8-10.6)
[2020-06-22 07:02] LABS: Albumin 2.8 g/dL (3.5-5.0); Calcium 7.6 mg/dL (8.4-10.2); Potassium 4.8 mmol/L (3.5-5.1); Total Bilirubin 1.2 mg/dL (0.2-1.3); Total Protein 5.3 g/dL (6.3-8.2)
[2020-06-22] MEDS: ALBUTEROL HFA INHALER INHALATION PRN ×3 (08:15→16:37)
[2020-06-22] MEDS: ENOXAPARIN 40 MG/0.4 ML SYRINGE SQ SCH (08:29)
[2020-06-22 10:00] LABS: Ferritin 1556.7 ng/mL (22.0-322.0)
--- NOTE | 2020-06-22 12:32 | P.HPIM ---
History of Present Illness H&P Date: 06/22/20 Chief Complaint: Fevers, worsening shortness of breath This is 70-year-old gentleman with past medical history of hypertension, and gastroesophageal reflux disease, CAD, GA, chronic back pain with history of laminectomy and multiple other medical issues presented to the ER with history of fevers ,worsening shortness of breath. Patient had seen his PCP last week on Thursday the and was recommended to go for his covid test. Patient apparently never went for his test. Yesterday completed a tele visit with his PCP, Dr. Encarnacion, referred to the ER. Patient tested positive for Covid infection while in the ER. On admission patient hypoxic with O2 sat of 80% on room air, required nonrebreather to maintain O2 sats in the 90s to 100%. Febrile on admission with temperature 99.9, normal WBC. D-dimer 2.41, sodium 132, BUN 52, creatinine 2.05, ferritin 1556.7 total bili elevated on admission now within normal limits, mildly elevated LFTs, LDH 2411currently 2018, CRP 158.4. Given patient's renal function and respiratory status unable to proceed with CTA of chest or VQ to rule out PE, currently on heparin drip. Chest x-ray reported partially consolidative opacity in the right lung base consistent with acute pneumonic process. Telemetry sinus rhythm with fusion complexes and PACs with left axis deviation. Denies chest pain, palpitations. Review of Systems ROS Other: All systems not noted in ROS Statement are negative. ROS Statement: Those systems with pertinent positive or pertinent negative responses have been documented in the HPI. 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), gout, Last Myocardial Infarction Date:: 05-09-06 History of Any Multi-Drug Resistant Organisms: None Reported Past Surgical History: Back Surgery, Heart Catheterization With Stent, Hernia Repair, Orthopedic Surgery Additional Past Surgical History / Comment(s): LT INGUINAL HERNIA, LT EYE SX TO REPAIR THE BROKEN ORBIT HAS METAL IN PLACE, 2 cardiac stents, surgery for fx rt foot Past Anesthesia/Blood Transfusion Reactions: Previous Problems w/ Anesthesia Additional Past Anesthesia/Blood Transfusion Reaction / Comment(s): one time "was not very nice when coming out of anesthesia" Date of Last Stent Placement:: 05-09-06 Past Psychological History: No Psychological Hx Reported Smoking Status: Never smoker Past Alcohol Use History: None Reported Past Drug Use History: None Reported - Past Family History Father Family Medical History: Cancer Additional Family Medical History / Comment(s): COLON CANCER Medications and Allergies Home Medications Medication Instructions Recorded Confirmed Type Allopurinol [Zyloprim] 100 mg PO DAILY 09/09/17 06/21/20 History Metoprolol Tartrate [Lopressor] 25 mg PO BID #60 tab 09/15/17 06/21/20 Rx Rosuvastatin Calcium 5 mg PO HS 06/21/20 06/21/20 History lisinopriL [Zestril] 2.5 mg PO HS 06/21/20 06/21/20 History Gabapentin [Neurontin] 300 mg PO TID PRN 06/22/20 06/22/20 History predniSONE See Taper PO DAILY 06/22/20 06/22/20 History Allergies Allergy/AdvReac Type Severity Reaction Status Date / Time Penicillins Allergy Unknown Verified 06/21/20 21:33 Physical Exam Vitals: Vital Signs Temp Pulse Resp BP Pulse Ox 06/22/20 07:54 61 20 109/69 94 L 06/22/20 03:55 68 18 102/77 91 L 06/22/20 00:01 63 21 104/69 90 L 06/21/20 23:54 91 L 06/21/20 22:00 71 24 140/80 88 L 06/21/20 20:20 99.9 F H 68 22 127/80 80 L Intake and Output 06/21/20 06/22/20 06/22/20 22:59 06:59 14:59 Intake Total 63.705 Balance 63.705 Intake: Intake, IV Titration 63.705 Amount Heparin Sod,Pork in 0.45% 63.705 NaCl 25,000 unit In 0.45 % NaCl 1 250ml.bag @ 10. 26 UNITS/KG/HR 10.006 mls /hr IV .Q24H [facility] Rx#: [id number] Other: Weight 97.522 kg PHYSICAL EXAMINATION: Patient is lying on the stretcher, comfortably, no acute distress, awake alert and oriented X 3, respiratory effort increased HEENT: Normocephalic. Neck is supple. Pupils reactive. Neck reveals no JVD, carotid bruits, or thyromegaly. CHEST EXAMINATION: Trachea is central. Symmetrical expansion. Lung robison clear to auscultation and percussion. CARDIAC: Normal S1, S2 with no gallops. No murmurs ABDOMEN: Soft. Bowel sounds normal. No organomegaly. No abdominal bruits. Extremities: reveal no edema. No clubbing or cyanosis Neurologically awake, alert, oriented x3 with well-coordinated movements. No focal deficits noted Skin: No rash, warm and dry Results CBC & Chem 7: 06/22/20 05:16 06/22/20 05:16 Labs: Abnormal Lab Results - Last 24 Hours (Table) 06/21/20 06/21/20 06/21/20 Range/Units 21:10 21:10 21:10 Plt Count 128 L (150-450) k/uL Lymphocytes # 0.4 L (1.0-4.8) k/uL APTT 30.3 H (22.0-30.0) sec D-Dimer 2.41 H (<0.60) mg/L FEU Sodium 131 L (137-145) mmol/L Carbon Dioxide 20 L (22-30) mmol/L BUN 44 H (9-20) mg/dL Creatinine 1.83 H (0.66-1.25) mg/dL Glucose 115 H (74-99) mg/dL Calcium (8.4-10.2) mg/dL Phosphorus (2.5-4.5) mg/dL Ferritin 1556.7 H (22.0-322.0) ng/mL Total Bilirubin 1.7 H (0.2-1.3) mg/dL AST 205 H (17-59) U/L ALT 117 H (4-49) U/L Lactate Dehydrogenase 2411 H (313-618) U/L C-Reactive Protein 158.4 H (<10.0) mg/L Total Protein (6.3-8.2) g/dL Albumin (3.5-5.0) g/dL Coronavirus (PCR) (Not Detectd) 06/21/20 06/22/20 06/22/20 Range/Units 21:10 05:16 05:16 Plt Count 102 L (150-450) k/uL Lymphocytes # 0.4 L (1.0-4.8) k/uL APTT (22.0-30.0) sec D-Dimer (<0.60) mg/L FEU Sodium 132 L (137-145) mmol/L Carbon Dioxide 18 L (22-30) mmol/L BUN 52 H (9-20) mg/dL Creatinine 2.05 H (0.66-1.25) mg/dL Glucose 134 H (74-99) mg/dL Calcium 7.6 L (8.4-10.2) mg/dL Phosphorus 6.0 H (2.5-4.5) mg/dL Ferritin (22.0-322.0) ng/mL Total Bilirubin (0.2-1.3) mg/dL AST 156 H (17-59) U/L ALT 102 H (4-49) U/L Lactate Dehydrogenase 2018 H (313-618) U/L C-Reactive Protein (<10.0) mg/L Total Protein 5.3 L (6.3-8.2) g/dL Albumin 2.8 L (3.5-5.0) g/dL Coronavirus (PCR) Detected A (Not Detectd) 06/22/20 Range/Units 05:16 Plt Count (150-450) k/uL Lymphocytes # (1.0-4.8) k/uL APTT 61.3 H (22.0-30.0) sec D-Dimer (<0.60) mg/L FEU Sodium (137-145) mmol/L Carbon Dioxide (22-30) mmol/L BUN (9-20) mg/dL Creatinine (0.66-1.25) mg/dL Glucose (74-99) mg/dL Calcium (8.4-10.2) mg/dL Phosphorus (2.5-4.5) mg/dL Ferritin (22.0-322.0) ng/mL Total Bilirubin (0.2-1.3) mg/dL AST (17-59) U/L ALT (4-49) U/L Lactate Dehydrogenase (313-618) U/L C-Reactive Protein (<10.0) mg/L Total Protein (6.3-8.2) g/dL Albumin (3.5-5.0) g/dL Coronavirus (PCR) (Not Detectd) Assessment and Plan Assessment: Sepsis secondary to Acute Covid -19 pneumonia Acute hypoxic respiratory failure secondary to the above Acute renal failure secondary to the above Coronary artery disease with history of GA,stent placement History of Gout Hypertension Chronic paroxysmal atrial fibrillation Chronic systolic CHF, EF 35-40% Plan: Continue on current medication regime ,monitoring and symptomatic treatment. COvid regimen/vitamin supplements ordered. Pulmonary consult in place with recommendations pending. Prognosis guarded given multiple complex medical issues. The impression and plan of care has been dictated as directed. : I performed a history and examination of this patient, discussed the same with the dictator. I agree with the dictator's note ,documented as a scribe. Any additional findings or plans will be noted.
--- NOTE | 2020-06-22 16:05 | P.CNPUL ---
History of Present Illness Consult date: 06/22/20 Requesting physician: Vijay Encarnacion Reason for consult: dyspnea, cough, hypoxemia, pneumonia, abnormal CXR/CT Chief complaint: Shortness of breath, cough, fever, chills, weakness. History of present illness: This is a 70-year-old gentleman that was seen in the emergency room on June 21. He was sent into the emergency room after being seen by his primary care doctor because of increasing shortness of breath, and concerns that the patient might have COVID 19. In addition to shortness of breath, the patient states he's been having lots of chest congestion, and is been coughing. When he coughs, it is painful in his chest. He has been sick for at least 2 weeks. In addition, he has muscle aches and joint aches, weakness and fatigue, and fever and chills. Currently, he is on a nonrebreather mask. Saturations are 92%. His primary care physician Dr. Vijay Encarnacion. He was not receiving any IV fluids. His primary medical problems include atrial fibrillation, coronary artery disease, hype rlipidemia, hypertension, gastroesophageal reflux disease, and prior myocardial infarction. The patient is a lifelong nontobacco user. White count is 4.9, hemoglobin 13.5, hematocrit 39.5, platelet count 92,000. PTT 61.3. D-dimer 2.41. Sodium 132, potassium 4.8, chloride 105, CO2 18, anion gap 9, BUN and creatinine 52 and 2.05. Calcium 7.6, AST 156, pO2 102, LDH 2018. C-reactive protein 158. I was not able to look at the chest x-ray. There is apparently a partially occlusive opacity at the right lung base consistent with acute pneumonic process. CT angiogram was not performed. Review of Systems REVIEW OF SYSTEMS: CONSTITUTIONAL: Fever, chills, weakness, fatigue. NEUROLOGIC: [ Negative.] HEENT: [ Negative.] CARDIAC: [Negative.] PULMONARY: Cough, and shortness of breath. GI: [Negative.] : [Negative.] RHEUMATOLOGIC: [ Negative.] IMMUNOLOGIC: [ Negative.] ENDOCRINE: [Negative. 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), gout, Last Myocardial Infarction Date:: 05-09-06 History of Any Multi-Drug Resistant Organisms: None Reported Past Surgical History: Back Surgery, Heart Catheterization With Stent, Hernia Repair, Orthopedic Surgery Additional Past Surgical History / Comment(s): LT INGUINAL HERNIA, LT EYE SX TO REPAIR THE BROKEN ORBIT HAS METAL IN PLACE, 2 cardiac stents, surgery for fx rt foot Past Anesthesia/Blood Transfusion Reactions: Previous Problems w/ Anesthesia Additional Past Anesthesia/Blood Transfusion Reaction / Comment(s): one time "was not very nice when coming out of anesthesia" Date of Last Stent Placement:: 05-09-06 Past Psychological History: No Psychological Hx Reported Smoking Status: Never smoker Past Alcohol Use History: None Reported Past Drug Use History: None Reported - Past Family History Father Family Medical History: Cancer Additional Family Medical History / Comment(s): COLON CANCER Medications and Allergies Home Medications Medication Instructions Recorded Confirmed Type Allopurinol [Zyloprim] 100 mg PO DAILY 09/09/17 06/21/20 History Metoprolol Tartrate [Lopressor] 25 mg PO BID #60 tab 09/15/17 06/21/20 Rx Rosuvastatin Calcium 5 mg PO HS 06/21/20 06/21/20 History lisinopriL [Zestril] 2.5 mg PO HS 06/21/20 06/21/20 History Gabapentin [Neurontin] 300 mg PO TID PRN 06/22/20 06/22/20 History predniSONE See Taper PO DAILY 06/22/20 06/22/20 History Allergies Allergy/AdvReac Type Severity Reaction Status Date / Time Penicillins Allergy Unknown Verified 06/21/20 21:33 Physical Exam Osteopathic Statement: *. No significant issues noted on an osteopathic structural exam other than those noted in the History and Physical/Consult. Vitals: Vital Signs Temp Pulse Resp BP Pulse Ox 06/22/20 13:49 73 22 130/89 90 L 06/22/20 12:04 97.9 F 77 24 120/89 87 L 06/22/20 07:54 61 20 109/69 94 L 06/22/20 03:55 68 18 102/77 91 L 06/22/20 00:01 63 21 104/69 90 L 06/21/20 23:54 91 L 06/21/20 22:00 71 24 140/80 88 L 06/21/20 20:20 99.9 F H 68 22 127/80 80 L Intake and Output 06/22/20 06/22/20 06/22/20 06:59 14:59 22:59 Intake Total 63.705 Balance 63.705 Intake: Intake, IV Titration 63.705 Amount Heparin Sod,Pork in 0.45% 63.705 NaCl 25,000 unit In 0.45 % NaCl 1 250ml.bag @ 10. 26 UNITS/KG/HR 10.006 mls /hr IV .Q24H [facility] Rx#: [id number] Mild tachypnea, oriented 3. No use of accessory muscles or conversational dyspnea. Currently on a nonrebreather. Saturation 92%. HEENT examination is grossly unremarkable. Mucous membranes are moist. No oral lesions. Neck supple. Full range of motion. No adenopathy thyromegaly or neck vein distention. Cardiovascular examination reveals regular rhythm rate. S1-S2 normal. No S3 or S4. No discernible murmur noted. Heart rate 73 bpm. Lungs reveal mild coarse rhonchi. No wheezes. Bibasilar crackles. Breath sounds equal bilaterally. He coughs on deep inspiration. Abdomen soft bowel sounds are heard. No masses or tenderness. Extremities are intact. No cyanosis clubbing or edema. Skin is without rash or lesion. Neurologic examination is brief but nonfocal. Results - Laboratory Findings CBC and BMP: 06/22/20 05:16 06/22/20 05:16 PT/INR, D-dimer PT 10.9 sec (9.0-12.0) 06/21/20 21:10 INR 1.0 (<1.2) 06/21/20 21:10 D-Dimer 2.41 mg/L FEU (<0.60) H 06/21/20 21:10 Abnormal lab findings: Abnormal Labs 06/21/20 06/21/20 06/21/20 21:10 21:10 21:10 Plt Count 128 L Lymphocytes # 0.4 L APTT 30.3 H D-Dimer 2.41 H Sodium 131 L Carbon Dioxide 20 L BUN 44 H Creatinine 1.83 H Glucose 115 H Calcium Phosphorus Ferritin 1556.7 H Total Bilirubin 1.7 H AST 205 H ALT 117 H Lactate Dehydrogenase 2411 H C-Reactive Protein 158.4 H Total Protein Albumin Coronavirus (PCR) 06/21/20 06/22/20 06/22/20 21:10 05:16 05:16 Plt Count 102 L Lymphocytes # 0.4 L APTT D-Dimer Sodium 132 L Carbon Dioxide 18 L BUN 52 H Creatinine 2.05 H Glucose 134 H Calcium 7.6 L Phosphorus 6.0 H Ferritin Total Bilirubin AST 156 H ALT 102 H Lactate Dehydrogenase 2018 H C-Reactive Protein Total Protein 5.3 L Albumin 2.8 L Coronavirus (PCR) Detected A 06/22/20 05:16 Plt Count Lymphocytes # APTT 61.3 H D-Dimer Sodium Carbon Dioxide BUN Creatinine Glucose Calcium Phosphorus Ferritin Total Bilirubin AST ALT Lactate Dehydrogenase C-Reactive Protein Total Protein Albumin Coronavirus (PCR) - Diagnostic Findings Chest x-ray: image reviewed Assessment and Plan Assessment: Acute hypoxemic respiratory failure secondary to COVID19 pneumonia/pneumonitis. History of atrial fibrillation. History of CAD with previous myocardial infarction. Gastroesophageal reflux disease. History of essential hypertension. History of hyperlipidemia. Status post heart catheterization with stent placement. History of rheumatic fever. History of gout. Status post back surgery. Plan: Plan dated 06/22/2020. The patient is beyond the window for REM. The patient should get ascorbic acid, vitamin D3, zinc. In addition, the patient should get Decadron 6 mg a day, Lovenox 40 mg subcu daily. We'll follow closely. The patient's at high risk for deterioration given the fact that his saturations are only 92% on nonrebreather. This is a patient who may need to eventually come to the intensive care unit for closer monitoring and evaluation. We will continue to follow closely. We'll make recommendations for appropriate. The patient's prognosis is very guarded. Time with Patient: Greater than 30
[2020-06-22] MEDS: ZINC SULFATE 220 MG CAP PO SCH (16:24)
[2020-06-22] MEDS: DEXAMETHASONE SOD PHOSPHATE 10 MG/ML 1 ML VIAL IV SCH (16:24)
[2020-06-22] MEDS: CHOLECALCIFEROL 25 MCG (1000 IU) TABLET PO SCH (16:24)
[2020-06-22] MEDS: ASCORBIC ACID 500 MG TAB PO SCH ×2 (16:25→22:54)
[2020-06-22 20:40] LABS: Glucose,Whole Blood 203 mg/dL (75-99)
[2020-06-22] MEDS: INSULIN ASPART (NovoLOG) 100 UNIT/ML VIAL SQ SCH ×2 (22:37→22:54)
[2020-06-22 22:50] LABS: Glucose,Whole Blood 227 mg/dL (75-99)
[2020-06-23] MEDS: MORPHINE SULFATE 4 MG/ML SYRINGE IV PRN ×2 (00:42→21:24)
[2020-06-23] MEDS: HEPARIN SOD,PORK IN 0.45% NACL 25,000 UNIT in 0.45% NACL 1 250ML.BAG IV SCH (01:03)
[2020-06-23 06:27] LABS: Glucose,Whole Blood 140 mg/dL (75-99)
[2020-06-23] MEDS: INSULIN ASPART (NovoLOG) 100 UNIT/ML VIAL SQ SCH ×4 (06:53→21:16)
[2020-06-23] MEDS: ALBUTEROL HFA INHALER INHALATION PRN ×3 (08:40→16:38)
[2020-06-23] MEDS: CHOLECALCIFEROL 25 MCG (1000 IU) TABLET PO SCH (09:12)
[2020-06-23] MEDS: ASCORBIC ACID 500 MG TAB PO SCH ×2 (09:12→21:16)
[2020-06-23] MEDS: FAMOTIDINE 20 MG/2 ML VIAL IV SCH ×2 (09:13→21:16)
[2020-06-23] MEDS: allopurinoL 100 MG TAB PO SCH (09:13)
[2020-06-23] MEDS: ZINC SULFATE 220 MG CAP PO SCH (09:13)
[2020-06-23] MEDS: DEXAMETHASONE SOD PHOSPHATE 10 MG/ML 1 ML VIAL IV SCH (09:13)
[2020-06-23] MEDS: ENOXAPARIN 40 MG/0.4 ML SYRINGE SQ SCH (09:14)
[2020-06-23 09:42] LABS: Calcium 8.3 mg/dL (8.4-10.2); Potassium 4.6 mmol/L (3.5-5.1)
[2020-06-23 09:49] LABS: Basophils % (A) 0 %; Eosinophils % (A) 0 %; HCT 41.8 % (39.0-53.0); HGB 14.5 gm/dL (13.0-17.5); Lymphocytes # (A) 0.3 k/uL (1.0-4.8); Lymphocytes % (A) 3 %; MCH 30.6 pg (25.0-35.0); MCHC 34.6 g/dL (31.0-37.0); MCV 88.5 fL (80.0-100.0); Mean Platelet Volume 9.4; Monocytes # (A) 0.4 k/uL (0-1.0); Monocytes % (A) 4 %; Neutrophils # (A) 8.1 k/uL (1.3-7.7); Neutrophils % (A) 91 %; RBC 4.72 m/uL (4.30-5.90); RDW 12.9 % (11.5-15.5); WBC 8.9 k/uL (3.8-10.6)
[2020-06-23 09:55] LABS: Platelet Count 161 k/uL (150-450)
[2020-06-23 12:03] LABS: Glucose,Whole Blood 209 mg/dL (75-99)
--- NOTE | 2020-06-23 16:19 | P.PN ---
Subjective Progress Note Date: 06/23/20 Principal diagnosis: Acute hypoxic respiratory failure secondary to acute covid 19 pneumonitis. This is a 70-year-old gentleman that was seen in the emergency room on June 21. He was sent into the emergency room after being seen by his primary care doctor because of increasing shortness of breath, and concerns that the patient might have COVID 19. In addition to shortness of breath, the patient states he's been having lots of chest congestion, and is been coughing. When he coughs, it is painful in his chest. He has been sick for at least 2 weeks. In addition, he has muscle aches and joint aches, weakness and fatigue, and fever and chills. Currently, he is on a nonrebreather mask. Saturations are 92%. His primary care physician Dr. Vijay Encarnacion. He was not receiving any IV fluids. His primary medical problems include atrial fibrillation, coronary artery disease, hyperlipidemia, hypertension, gastroesophageal reflux disease, and prior myocardial infarction. The patient is a lifelong nontobacco user. White count is 4.9, hemoglobin 13.5, hematocrit 39.5, platelet count 92,000. PTT 61.3. D- dimer 2.41. Sodium 132, potassium 4.8, chloride 105, CO2 18, anion gap 9, BUN and creatinine 52 and 2.05. Calcium 7.6, AST 156, pO2 102, LDH 2018. C- reactive protein 158. I was not able to look at the chest x-ray. There is apparently a partially occlusive opacity at the right lung base consistent with acute pneumonic process. CT angiogram was not performed. Patient was reevaluated today on 06/23/2020, patient is feeling better today compared to how he felt yesterday. Patient is on high flow cannula running at 15 L/m, his O2 saturation is in the mid to high 80s he is on 100% FiO2 basically. His chest x-ray does not seem to be impressive, he does have consolidative opacity in the right lung base consistent with acute pneumonic process. Left lung is relatively clear. No significant pulmonary congestion. D-dimer is 2.56. Renal profile is not good enough for performing a CT angiogram of the chest, however I will recommend bilateral venous Doppler on this patient just to make sure we were not dealing with thromboembolic process. Again the patient tells me that his feeling better today compared to how he felt yesterday. Clinically improving. Objective - Vital Signs Vital signs: Vital Signs Temp 98.1 F 06/23/20 12:00 Pulse 63 06/23/20 08:00 Resp 28 H 06/23/20 12:00 BP 108/50 06/23/20 12:00 Pulse Ox 85 L 06/23/20 12:00 Intake & Output 06/22/20 06/23/20 06/23/20 18:59 06:59 18:59 Intake Total 1260 Output Total 300 Balance -300 1260 Weight 91.5 kg Intake: Oral 1260 Output: Urine 300 Other: Voiding Method Urinal Urinal # Voids 1 - Exam Physical Exam: Revealed a 70-year-old white male in no distress. Head: Atraumatic, normocephalic. HEENT:[Neck is supple.] [No neck masses.] [No thyromegaly.] [No JVD.] Chest: [Bibasilar crackles noted, right more so than left, no rhonchi and no wheezes. Cardiac Exam: [Normal S1 and S2, no S3 gallop, no murmur.] Abdomen: [Soft, nontender, no megaly, no rebound, no guarding, normal bowel sounds.] Extremities: [No clubbing, no edema, no cyanosis.] Neurological Exam: [No focal neurologic deficit.] Alert oriented 3. Psychiatric: Normal mood affect and normal mental status examination - Labs CBC & Chem 7: 06/23/20 08:30 06/23/20 08:30 Labs: Abnormal Lab Results - Last 24 Hours (Table) 06/21/20 06/22/20 06/22/20 Range/Units 23:41 20:38 22:48 Neutrophils # (1.3-7.7) k/uL Lymphocytes # (1.0-4.8) k/uL D-Dimer (<0.60) mg/L FEU Sodium (137-145) mmol/L Carbon Dioxide (22-30) mmol/L BUN (9-20) mg/dL Creatinine (0.66-1.25) mg/dL Glucose (74-99) mg/dL POC Glucose (mg/dL) 203 H 227 H (75-99) mg/dL Calcium (8.4-10.2) mg/dL Procalcitonin 0.47 H (0.02-0.09) ng/mL 06/23/20 06/23/20 06/23/20 Range/Units 06:26 08:30 08:30 Neutrophils # 8.1 H (1.3-7.7) k/uL Lymphocytes # 0.3 L (1.0-4.8) k/uL D-Dimer (<0.60) mg/L FEU Sodium 135 L (137-145) mmol/L Carbon Dioxide 20 L (22-30) mmol/L BUN 51 H (9-20) mg/dL Creatinine 1.68 H (0.66-1.25) mg/dL Glucose 155 H (74-99) mg/dL POC Glucose (mg/dL) 140 H (75-99) mg/dL Calcium 8.3 L (8.4-10.2) mg/dL Procalcitonin (0.02-0.09) ng/mL 06/23/20 06/23/20 Range/Units 08:30 12:01 Neutrophils # (1.3-7.7) k/uL Lymphocytes # (1.0-4.8) k/uL D-Dimer 2.56 H (<0.60) mg/L FEU Sodium (137-145) mmol/L Carbon Dioxide (22-30) mmol/L BUN (9-20) mg/dL Creatinine (0.66-1.25) mg/dL Glucose (74-99) mg/dL POC Glucose (mg/dL) 209 H (75-99) mg/dL Calcium (8.4-10.2) mg/dL Procalcitonin (0.02-0.09) ng/mL Microbiology - Last 24 Hours (Table) 06/21/20 21:30 Blood Culture - Preliminary Blood No Growth after 24 hours 06/21/20 21:10 Blood Culture - Preliminary Blood No Growth after 24 hours Assessment and Plan Assessment: Impression: Acute hypoxic respiratory failure secondary to Covid 19 pneumonia. Chronic atrial fibrillation. Previous CA. And history of coronary artery disease. History of gout. Coronary artery disease and previous stent placement. GERD without esophagitis. Benign essential hypertension. Acute kidney injury, exact etiology is not clear. Could be hypovolemic in nature. Recommendation: Out of the window for REM. Continue the Covid 19 cocktail. Continue Lovenox and Decadron. Titrate FiO2 accordingly. We'll recommend venous Doppler of the lower extremities. Continue to monitor renal profile. We will continue to follow. Time with Patient: Less than 30
--- NOTE | 2020-06-23 16:33 | P.PN ---
Subjective Progress Note Date: 06/23/20 Principal diagnosis: Acute hypoxic respiratory failure secondary to acute covid 19 pneumonitis. 70-year-old gentleman that was seen in the emergency room on June 21. He was sent into the emergency room after being seen by his primary care doctor because of increasing shortness of breath, and concerns that the patient might have COVID 19. In addition to shortness of breath, the patient states he's been having lots of chest congestion, and is been coughing. When he coughs, it is painful in his chest. He has been sick for at least 2 weeks. In addition, he has muscle aches and joint aches, weakness and fatigue, and fever and chills. Currently, he is on a nonrebreather mask. Saturations are 92%. His primary care physician Dr. Vijay Encarnacion. He was not receiving any IV fluids. His primary medical problems include atrial fibrillation, coronary artery disease, hyperl ipidemia, hypertension, gastroesophageal reflux disease, and prior myocardial infarction. The patient is a lifelong nontobacco user. White count is 4.9, hemoglobin 13.5, hematocrit 39.5, platelet count 92,000. PTT 61.3. D-dimer 2.41. Sodium 132, potassium 4.8, chloride 105, CO2 18, anion gap 9, BUN and creatinine 52 and 2.05. Calcium 7.6, AST 156, pO2 102, LDH 2018. C-reactive protein 158. I was not able to look at the chest x-ray. There is apparently a partially occlusive opacity at the right lung base consistent with acute pneumonic process. CT angiogram was not performed. 06/23/2020 patient is seen and evaluated in the room at bedside reports feeling better today compared to how he felt yesterday. Patient is on high flow cannula running at 15 L/m, his O2 saturation is in the mid to high 80s he is on 100% FiO2 basically. His chest x-ray does not seem to be impressive, he does have consolidative opacity in the right lung base consistent with acute pneumonic process. Left lung is relatively clear. No significant pulmonary congestion. D-dimer is 2.56. Unable to perform CT angiogram of the chest due to compromised renal function, however I will recommend bilateral venous Doppler on this patient just to make sure we were not dealing with thromboembolic process. Again the patient tells me that his feeling better today compared to how he felt yesterday. Clinically improving. Objective - Vital Signs Vital signs: Vital Signs Temp 98 F 06/23/20 08:00 Pulse 63 06/23/20 08:00 Resp 28 H 06/23/20 08:00 BP 106/57 06/23/20 08:00 Pulse Ox 87 L 06/23/20 08:00 Intake & Output 06/22/20 06/23/20 06/23/20 18:59 06:59 18:59 Intake Total 780 Output Total 300 Balance -300 780 Weight 91.5 kg Intake: Oral 780 Output: Urine 300 Other: Voiding Method Urinal Urinal # Voids 1 - Exam Physical Exam: Revealed a 70-year-old white male in no distress. Head: Atraumatic, normocephalic. HEENT:[Neck is supple.] [No neck masses.] [No thyromegaly.] [No JVD.] Chest: [Bibasilar crackles noted, right more so than left, no rhonchi and no wheezes. Cardiac Exam: [Normal S1 and S2, no S3 gallop, no murmur.] Abdomen: [Soft, nontender, no megaly, no rebound, no guarding, normal bowel sounds.] Extremities: [No clubbing, no edema, no cyanosis.] Neurological Exam: [No focal neurologic deficit.] Alert oriented 3. Psychiatric: Normal mood affect and normal mental status examination - Labs CBC & Chem 7: 06/23/20 08:30 06/23/20 08:30 Labs: Abnormal Lab Results - Last 24 Hours (Table) 06/21/20 06/22/20 06/22/20 Range/Units 23:41 20:38 22:48 Neutrophils # (1.3-7.7) k/uL Lymphocytes # (1.0-4.8) k/uL Sodium (137-145) mmol/L Carbon Dioxide (22-30) mmol/L BUN (9-20) mg/dL Creatinine (0.66-1.25) mg/dL Glucose (74-99) mg/dL POC Glucose (mg/dL) 203 H 227 H (75-99) mg/dL Calcium (8.4-10.2) mg/dL Procalcitonin 0.47 H (0.02-0.09) ng/mL 06/23/20 06/23/20 06/23/20 Range/Units 06:26 08:30 08:30 Neutrophils # 8.1 H (1.3-7.7) k/uL Lymphocytes # 0.3 L (1.0-4.8) k/uL Sodium 135 L (137-145) mmol/L Carbon Dioxide 20 L (22-30) mmol/L BUN 51 H (9-20) mg/dL Creatinine 1.68 H (0.66-1.25) mg/dL Glucose 155 H (74-99) mg/dL POC Glucose (mg/dL) 140 H (75-99) mg/dL Calcium 8.3 L (8.4-10.2) mg/dL Procalcitonin (0.02-0.09) ng/mL Microbiology - Last 24 Hours (Table) 06/21/20 21:30 Blood Culture - Preliminary Blood No Growth after 24 hours 06/21/20 21:10 Blood Culture - Preliminary Blood No Growth after 24 hours Assessment and Plan Assessment: Sepsis secondary to Acute Covid -19 pneumonia Acute hypoxic respiratory failure secondary to the above Acute renal failure secondary to the above Coronary artery disease with history of CA,stent placement History of Gout Hypertension Chronic paroxysmal atrial fibrillation Chronic systolic CHF, EF 35-40% Recommendation: Out of the window for REM. Continue the Covid 19 cocktail. Continue Lovenox and Decadron. Titrate FiO2 accordingly. We'll recommend venous Doppler of the lower extremities. Continue to monitor renal profile. We will continue to follow.
[2020-06-23 16:52] LABS: Glucose,Whole Blood 205 mg/dL (75-99)
--- NOTE | 2020-06-23 17:22 | US ---
EXAMINATION TYPE: US venous doppler duplex LE BI DATE OF EXAM: 06/23/2020 5:15 PM COMPARISON: NONE CLINICAL HISTORY: dvt. Covid, SOB SIDE PERFORMED: Bilateral TECHNIQUE: The lower extremity deep venous system is examined utilizing real time linear array sonog yovani with graded compression, doppler sonography and color-flow sonography. VESSELS IMAGED: Common Femoral Vein Deep Femoral Vein Greater Saphenous Vein * Femoral Vein Popliteal Vein Small Saphenous Vein * Proximal Calf Veins (* superficial vessels) Right Leg: Negative for DVT Left Leg: Negative for DVT IMPRESSION: No evidence of deep vein thrombosis in both legs.
[2020-06-23 20:18] LABS: Glucose,Whole Blood 206 mg/dL (75-99)
[2020-06-23] MEDS: ATORVASTATIN 10 MG TAB PO SCH (21:16)
[2020-06-24] MEDS: HEPARIN SOD,PORK IN 0.45% NACL 25,000 UNIT in 0.45% NACL 1 250ML.BAG IV SCH (00:50)
[2020-06-24 06:13] LABS: Glucose,Whole Blood 137 mg/dL (75-99)
[2020-06-24] MEDS: INSULIN ASPART (NovoLOG) 100 UNIT/ML VIAL SQ SCH ×4 (06:53→20:41)
[2020-06-24 07:39] LABS: Magnesium 2.6 mg/dL (1.6-2.3); Potassium 5.1 mmol/L (3.5-5.1)
[2020-06-24] MEDS: ASCORBIC ACID 500 MG TAB PO SCH ×2 (08:51→20:40)
[2020-06-24] MEDS: ENOXAPARIN 40 MG/0.4 ML SYRINGE SQ SCH (08:51)
[2020-06-24] MEDS: CHOLECALCIFEROL 25 MCG (1000 IU) TABLET PO SCH (08:51)
[2020-06-24] MEDS: ZINC SULFATE 220 MG CAP PO SCH (08:51)
[2020-06-24] MEDS: allopurinoL 100 MG TAB PO SCH (08:51)
[2020-06-24] MEDS: DEXAMETHASONE SOD PHOSPHATE 10 MG/ML 1 ML VIAL IV SCH (08:52)
[2020-06-24] MEDS: FAMOTIDINE 20 MG/2 ML VIAL IV SCH ×2 (08:52→20:41)
[2020-06-24 09:53] LABS: Basophils % (A) 0 %; Eosinophils % (A) 0 %; HCT 42.1 % (39.0-53.0); HGB 14.4 gm/dL (13.0-17.5); Lymphocytes # (A) 0.3 k/uL (1.0-4.8); Lymphocytes % (A) 2 %; MCH 30.6 pg (25.0-35.0); MCHC 34.2 g/dL (31.0-37.0); MCV 89.6 fL (80.0-100.0); Monocytes # (A) 0.5 k/uL (0-1.0); Monocytes % (A) 5 %; Neutrophils # (A) 9.4 k/uL (1.3-7.7); Neutrophils % (A) 91 %; Platelet Count 188 k/uL (150-450); RDW 13.1 % (11.5-15.5); WBC 10.2 k/uL (3.8-10.6)
[2020-06-24 09:56] LABS: Calcium 8.6 mg/dL (8.4-10.2)
--- NOTE | 2020-06-24 10:18 | P.CRDCN ---
History of Present Illness Consult date: 06/24/20 History of present illness: CHIEF COMPLAINT: Patient request HISTORY OF PRESENT ILLNESS: This is a 70-year-old male with a past medical history significant for atrial fibrillation, hypertension, hyperlipidemia, coronary artery disease with previous stent placement and former nicotine dependence. Patient follows in the office with Dr. Montes. We have been asked to see the patient in consultation due to patient request. Patient is admitted to the hospital secondary to Covid 19. Patient is on 15 L high flow cannula and also wearing a nonrebreather mask with oxygen saturations of 88%. Blood pressure 132/65. He is afebrile. Telemetry reveals sinus mechanism. The patient has a history of atrial fibrillation. His home medication list does not include anticoagulation. Nursing spoke with the patient who could not remember if he was taking anticoagulation. According to the most recent office note, the patient was taking Xarelto 20 mg daily. DIAGNOSTICS: EKG reveals sinus mechanism with PACs. Left axis deviation. Chest xray partially consolidative opacity in the right lung base consistent with acute pneumonic process. Venous Doppler: Negative for DVT bilaterally Laboratory data: WBC 10.2. Hemoglobin 14.4. Platelet count 188. Sodium 136. Potassium 5.1. BUN 52. Creatinine 1.45. Current home cardiac medications include lisinopril 2.5 mg daily, Crestor 5 mg daily, metoprolol tartrate 25 mg twice a day Echocardiogram completed in 2018 revealed ejection fraction 35-40% REVIEW OF SYSTEMS: Thorough review of systems not completed secondary to limited yina luation/examination and due to Covid19 PHYSICAL EXAM: Thorough physical exam not completed secondary to limited evaluation/examination and due to Covid19 ASSESSMENT: Covid 19 Acute hypoxic respiratory failure Paroxysmal atrial fibrillation, currently maintaining sinus mechanism Coronary artery disease with previous PCI to mid circumflex and proximal OM, 2006 Ischemic cardiomyopathy, EF 35-40% Acute kidney injury Hyperlipidemia Hypertension GERD Former nicotine dependence PLAN: Obtain 2D echo to assess cardiac structure and function Resume metoprolol Discontinue Lovenox Resume Xarelto. Will begin at decreased dose of 15 mg daily due to GFR less than 50 Hold lisinopril secondary to FERNANDO and mild hyperkalemia Monitor kidney function Continue telemetry monitoring Further recommendations pending patient's course Nurse practitioner note has been reviewed by physician. Signing provider agrees with the documented findings, assessment, and plan of care. 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), gout, Last Myocardial Infarction Date:: 05-09-06 History of Any Multi-Drug Resistant Organisms: None Reported Past Surgical History: Back Surgery, Heart Catheterization With Stent, Hernia R epair, Orthopedic Surgery Additional Past Surgical History / Comment(s): LT INGUINAL HERNIA, LT EYE SX TO REPAIR THE BROKEN ORBIT HAS METAL IN PLACE, 2 cardiac stents, surgery for fx rt foot Past Anesthesia/Blood Transfusion Reactions: Previous Problems w/ Anesthesia Additional Past Anesthesia/Blood Transfusion Reaction / Comment(s): one time "was not very nice when coming out of anesthesia" Date of Last Stent Placement:: 05-09-06 Past Psychological History: No Psychological Hx Reported Smoking Status: Never smoker Past Alcohol Use History: None Reported Additional Past Alcohol Use History / Comment(s): smoked x 20 years, 1ppd quit 1998 Past Drug Use History: None Reported - Past Family History Father Family Medical History: Cancer Additional Family Medical History / Comment(s): COLON CANCER Medications and Allergies Home Medications Medication Instructions Recorded Confirmed Type Allopurinol [Zyloprim] 100 mg PO DAILY 09/09/17 06/21/20 History Metoprolol Tartrate [Lopressor] 25 mg PO BID #60 tab 09/15/17 06/21/20 Rx Rosuvastatin Calcium 5 mg PO HS 06/21/20 06/21/20 History lisinopriL [Zestril] 2.5 mg PO HS 06/21/20 06/21/20 History Gabapentin [Neurontin] 300 mg PO TID PRN 06/22/20 06/22/20 History predniSONE See Taper PO DAILY 06/22/20 06/22/20 History Allergies Allergy/AdvReac Type Severity Reaction Status Date / Time Penicillins Allergy Unknown Verified 06/21/20 21:33 Physical Exam Vitals: Vital Signs Temp Pulse Resp BP Pulse Ox 06/24/20 08:50 97.8 F 68 22 132/65 88 L 06/24/20 08:00 68 22 06/24/20 04:10 97.8 F 67 26 H 128/81 88 L 06/24/20 00:30 97.7 F 62 23 128/74 89 L 06/23/20 21:05 97.9 F 68 24 136/75 88 L 06/23/20 16:00 75 24 126/65 86 L 06/23/20 12:00 98.1 F 28 H 108/50 85 L Intake and Output 06/23/20 06/24/20 06/24/20 22:59 06:59 14:59 Intake Total 240 Output Total 400 700 Balance -160 -700 Intake: Oral 240 Output: Urine 400 700 Other: Voiding Method Urinal Urinal Urinal Weight 90.5 kg Results 06/24/20 07:08 06/24/20 07:08 Cardiac Enzymes 06/24/20 Range/Units 07:08 Lactate Dehydrogenase 1586 H (313-618) U/L CBC 06/24/20 Range/Units 07:08 WBC 10.2 (3.8-10.6) k/uL RBC 4.70 (4.30-5.90) m/uL Hgb 14.4 (13.0-17.5) gm/dL Hct 42.1 (39.0-53.0) % Plt Count 188 (150-450) k/uL Comprehensive Metabolic Panel 06/24/20 Range/Units 07:08 Sodium 136 L (137-145) mmol/L Potassium 5.1 (3.5-5.1) mmol/L Chloride 108 H (98-107) mmol/L Carbon Dioxide 23 (22-30) mmol/L BUN 52 H (9-20) mg/dL Creatinine 1.45 H (0.66-1.25) mg/dL Glucose 122 H (74-99) mg/dL Calcium 8.6 (8.4-10.2) mg/dL Current Medications Generic Name Dose Route Start Last Admin Trade Name Freq PRN Reason Stop Dose Admin Acetaminophen 650 mg 06/21/20 23:10 Acetaminophen Tab 325 Mg Tab PO Q6HR PRN Mild Pain or Fever > 100.5 Albuterol Sulfate 2 puff 06/21/20 23:10 06/23/20 16:38 Albuterol Hfa Inhaler INHALATION 2 puff RT-QID PRN Administration Shortness Of Breath Or Wheezing Allopurinol 100 mg 06/23/20 09:00 06/24/20 08:51 Allopurinol 100 Mg Tab PO 100 mg DAILY ROBERT Administration Ascorbic Acid 500 mg 06/22/20 12:30 06/24/20 08:51 Ascorbic Acid 500 Mg Tab PO 500 mg BID ROBERT Administration Atorvastatin Calcium 10 mg 06/23/20 21:00 06/23/20 21:16 Atorvastatin 10 Mg Tab PO 10 mg HS ROBERT Administration Cholecalciferol 50 mcg 06/22/20 12:30 06/24/20 08:51 Cholecalciferol 25 Mcg (1000 Iu) Tablet PO 50 mcg DAILY ROBERT Administration Dexamethasone Sodium Phosphate 6 mg 06/22/20 12:45 06/24/20 08:52 Dexamethasone Sod Phosphate 10 Mg/Ml 1 Ml Vial IV 6 mg DAILY ROBERT Administration Famotidine 10 mg 06/23/20 09:00 06/24/20 08:52 Famotidine 20 Mg/2 Ml Vial IV 10 mg Q12HR ROBERT Administration Gabapentin 100 mg 06/22/20 22:06 Gabapentin 100 Mg Cap PO TID PRN Pain Heparin Sodium (Porcine) 0 unit 06/21/20 23:18 Heparin Sodium 1,000 Un/Ml (10ml Vl) IV PER PROTOCOL PRN Low PTT Protocol Insulin Aspart 0 unit 06/22/20 17:30 06/24/20 06:53 Insulin Aspart (Novolog) 100 Unit/Ml Vial SQ 1 unit ACHS ROBERT Administration Protocol Morphine Sulfate 4 mg 06/21/20 23:10 06/23/20 21:24 Morphine Sulfate 4 Mg/Ml Syringe IV 4 mg Q4HR PRN Administration Severe Pain Naloxone HCl 0.2 mg 06/21/20 23:10 Naloxone 0.4 Mg/Ml 1 Ml Vial IV Q2M PRN Opioid Reversal Rivaroxaban 20 mg 06/24/20 17:30 Rivaroxaban 20 Mg Tab PO W/SUPPER ROBERT Zinc Sulfate 220 mg 06/22/20 12:30 06/24/20 08:51 Zinc Sulfate 220 Mg Cap PO 220 mg DAILY ROBERT Administration Intake and Output 06/23/20 06/24/20 06/24/20 22:59 06:59 14:59 Intake Total 240 Output Total 400 700 Balance -160 -700 Intake: Oral 240 Output: Urine 400 700 Other: Voiding Method Urinal Urinal Urinal Weight 90.5 kg 06/24/20 07:08 06/24/20 07:08
[2020-06-24 12:31] LABS: Glucose,Whole Blood 141 mg/dL (75-99)
[2020-06-24] MEDS: ALBUTEROL HFA INHALER INHALATION PRN ×2 (12:33→20:09)
--- NOTE | 2020-06-24 15:42 | P.PN ---
Subjective Progress Note Date: 06/24/20 Principal diagnosis: Acute hypoxic respiratory failure secondary to acute covid 19 pneumonitis. 70-year-old gentleman that was seen in the emergency room on June 21. He was sent into the emergency room after being seen by his primary care doctor because of increasing shortness of breath, and concerns that the patient might have COVID 19. In addition to shortness of breath, the patient states he's been having lots of chest congestion, and is been coughing. When he coughs, it is painful in his chest. He has been sick for at least 2 weeks. In addition, he has muscle aches and joint aches, weakness and fatigue, and fever and chills. Currently, he is on a nonrebreather mask. Saturations are 92%. His primary care physician Dr. Vijay Encarnacion. He was not receiving any IV fluids. His primary medical problems include atrial fibrillation, coronary artery disease, hyperl ipidemia, hypertension, gastroesophageal reflux disease, and prior myocardial infarction. The patient is a lifelong nontobacco user. White count is 4.9, hemoglobin 13.5, hematocrit 39.5, platelet count 92,000. PTT 61.3. D-dimer 2.41. Sodium 132, potassium 4.8, chloride 105, CO2 18, anion gap 9, BUN and creatinine 52 and 2.05. Calcium 7.6, AST 156, pO2 102, LDH 2018. C-reactive protein 158. I was not able to look at the chest x-ray. There is apparently a partially occlusive opacity at the right lung base consistent with acute pneumonic process. CT angiogram was not performed. 06/23/2020 patient is seen and evaluated in the room at bedside reports feeling better today compared to how he felt yesterday. Patient is on high flow cannula running at 15 L/m, his O2 saturation is in the mid to high 80s he is on 100% FiO2 basically. His chest x-ray does not seem to be impressive, he does have consolidative opacity in the right lung base consistent with acute pneumonic process. Left lung is relatively clear. No significant pulmonary congestion. D-dimer is 2.56. Unable to perform CT angiogram of the chest due to compromised renal function, however I will recommend bilateral venous Doppler on this patient just to make sure we were not dealing with thromboembolic process. Again the patient tells me that his feeling better today compared to how he felt yesterday. Clinically improving. 06/24/2020 Patient is seen and evaluated in room at bedside; remains on O2 per H HF NC at 15 L along with nonrebreather mask with O2 saturation around 88%; cardiology is consulted to evaluate patient for his request Cardiology evaluated patient and have recommended to resume home anticoagulation therapy in form of Xarelto at 15 mg daily and discontinue Lovenox; lisinopril is recommended to be held due to mild AK I and hyperkalemia; we will continue to monitor renal function and electrolytes closely; continue with supplemental oxyg en with plans to wean off as tolerated; patient remains on subcu Lovenox and Decadron along with vitamins Objective - Vital Signs Vital signs: Vital Signs Temp 97.8 F 06/24/20 08:50 Pulse 68 06/24/20 08:50 Resp 22 06/24/20 08:50 BP 132/65 06/24/20 08:50 Pulse Ox 88 L 06/24/20 08:50 Intake & Output 06/23/20 06/24/20 06/24/20 18:59 06:59 18:59 Intake Total 1500 Output Total 400 700 Balance 1100 -700 Weight 90.5 kg Intake: Oral 1500 Output: Urine 400 700 Other: Voiding Method Urinal Urinal - Exam Physical Exam: Revealed a 70-year-old white male in no distress. Head: Atraumatic, normocephalic. HEENT:[Neck is supple.] [No neck masses.] [No thyromegaly.] [No JVD.] Chest: [Bibasilar crackles noted, right more so than left, no rhonchi and no wheezes. Cardiac Exam: [Normal S1 and S2, no S3 gallop, no murmur.] Abdomen: [Soft, nontender, no megaly, no rebound, no guarding, normal bowel sounds.] Extremities: [No clubbing, no edema, no cyanosis.] Neurological Exam: [No focal neurologic deficit.] Alert oriented 3. Psychiatric: Normal mood affect and normal mental status examination - Labs CBC & Chem 7: 06/24/20 07:08 06/24/20 07:08 Labs: Abnormal Lab Results - Last 24 Hours (Table) 06/23/20 06/23/20 06/23/20 Range/Units 08:30 08:30 08:30 Neutrophils # 8.1 H (1.3-7.7) k/uL Lymphocytes # 0.3 L (1.0-4.8) k/uL D-Dimer 2.56 H (<0.60) mg/L FEU Sodium 135 L (137-145) mmol/L Carbon Dioxide 20 L (22-30) mmol/L BUN 51 H (9-20) mg/dL Creatinine 1.68 H (0.66-1.25) mg/dL Glucose 155 H (74-99) mg/dL POC Glucose (mg/dL) (75-99) mg/dL Calcium 8.3 L (8.4-10.2) mg/dL Magnesium (1.6-2.3) mg/dL 06/23/20 06/23/20 06/23/20 Range/Units 12:01 16:50 20:16 Neutrophils # (1.3-7.7) k/uL Lymphocytes # (1.0-4.8) k/uL D-Dimer (<0.60) mg/L FEU Sodium (137-145) mmol/L Carbon Dioxide (22-30) mmol/L BUN (9-20) mg/dL Creatinine (0.66-1.25) mg/dL Glucose (74-99) mg/dL POC Glucose (mg/dL) 209 H 205 H 206 H (75-99) mg/dL Calcium (8.4-10.2) mg/dL Magnesium (1.6-2.3) mg/dL 06/24/20 06/24/20 Range/Units 06:12 07:08 Neutrophils # (1.3-7.7) k/uL Lymphocytes # (1.0-4.8) k/uL D-Dimer (<0.60) mg/L FEU Sodium (137-145) mmol/L Carbon Dioxide (22-30) mmol/L BUN (9-20) mg/dL Creatinine (0.66-1.25) mg/dL Glucose (74-99) mg/dL POC Glucose (mg/dL) 137 H (75-99) mg/dL Calcium (8.4-10.2) mg/dL Magnesium 2.6 H (1.6-2.3) mg/dL Microbiology - Last 24 Hours (Table) 04/01/21 21:30 Blood Culture - Preliminary Blood No Growth after 48 hours 06/21/20 21:10 Blood Culture - Preliminary Blood No Growth after 48 hours Assessment and Plan Assessment: Sepsis secondary to Acute Covid -19 pneumonia Acute hypoxic respiratory failure secondary to the above Acute renal failure secondary to the above Coronary artery disease with history of [place],stent placement History of Gout Hypertension Chronic paroxysmal atrial fibrillation Chronic systolic CHF, EF 35-40% Recommendation: Out of the window for REM. Continue the Covid 19 cocktail. Continue Lovenox and Decadron. Titrate FiO2 accordingly. We'll recommend venous Doppler of the lower extremities. Continue to monitor renal profile. We will continue to follow.
[2020-06-24 16:28] LABS: Ferritin 1358.9 ng/mL (22.0-322.0)
--- NOTE | 2020-06-24 16:38 | P.PN ---
Subjective Progress Note Date: 06/24/20 Principal diagnosis: Acute hypoxic respiratory failure secondary to acute covid 19 pneumonitis. This is a 70-year-old gentleman that was seen in the emergency room on June 21. He was sent into the emergency room after being seen by his primary care doctor because of increasing shortness of breath, and concerns that the patient might have COVID 19. In addition to shortness of breath, the patient states he's been having lots of chest congestion, and is been coughing. When he coughs, it is painful in his chest. He has been sick for at least 2 weeks. In addition, he has muscle aches and joint aches, weakness and fatigue, and fever and chills. Currently, he is on a nonrebreather mask. Saturations are 92%. His primary care physician Dr. Vijay Encarnacion. He was not receiving any IV fluids. His primary medical problems include atrial fibrillation, coronary artery disease, hyperlipidemia, hypertension, gastroesophageal reflux disease, and prior myocardial infarction. The patient is a lifelong nontobacco user. White count is 4.9, hemoglobin 13.5, hematocrit 39.5, platelet count 92,000. PTT 61.3. D- dimer 2.41. Sodium 132, potassium 4.8, chloride 105, CO2 18, anion gap 9, BUN and creatinine 52 and 2.05. Calcium 7.6, AST 156, pO2 102, LDH 2018. C- reactive protein 158. I was not able to look at the chest x-ray. There is apparently a partially occlusive opacity at the right lung base consistent with acute pneumonic process. CT angiogram was not performed. Patient was reevaluated today on 06/23/2020, patient is feeling better today compared to how he felt yesterday. Patient is on high flow cannula running at 15 L/m, his O2 saturation is in the mid to high 80s he is on 100% FiO2 basically. His chest x-ray does not seem to be impressive, he does have consolidative opacity in the right lung base consistent with acute pneumonic process. Left lung is relatively clear. No significant pulmonary congestion. D-dimer is 2.56. Renal profile is not good enough for performing a CT angiogram of the chest, however I will recommend bilateral venous Doppler on this patient just to make sure we were not dealing with thromboembolic process. Again the patient tells me that his feeling better today compared to how he felt yesterday. Clinically improving. Patient was reevaluated today on 06/24/2020, patient remains on high flow oxygen. He is on 15 L high flow cannula, and his O2 saturations 92% at best. Patient continues to have shortness of breath, intermittent episodes of cough. He has no fever, his vital signs are relatively stable. During my evaluation, patient was constantly coughing. CBC is relatively normal electrolytes are normal BUN is 52 creatinine 1.45. LDH is elevated at 1586. Venous Doppler yesterday was negative. Chest x-ray on admission showed consolidation at the right lung base. I also suspect some consolidation at the left base/retrocardiac area. Objective - Vital Signs Vital signs: Vital Signs Temp 97.9 F 06/24/20 12:00 Pulse 68 06/24/20 13:13 Resp 24 06/24/20 13:13 BP 109/80 06/24/20 12:00 Pulse Ox 92 L 06/24/20 12:00 Intake & Output 06/23/20 06/24/20 06/24/20 18:59 06:59 18:59 Intake Total 1500 240 Output Total 400 700 Balance 1100 -700 240 Weight 90.5 kg Intake: Oral 1500 240 Output: Urine 400 700 Other: Voiding Method Urinal Urinal Urinal - Exam Physical Exam: Revealed a 70-year-old white male on high flow oxygen, coughing almost continuously Head: Atraumatic, normocephalic. HEENT:[Neck is supple.] [No neck masses.] [No thyromegaly.] [No JVD.] Chest: [Bibasilar crackles noted, right more so than left, no rhonchi and no wheezes. Cardiac Exam: [Normal S1 and S2, no S3 gallop, no murmur.] Abdomen: [Soft, nontender, no megaly, no rebound, no guarding, normal bowel sounds.] Extremities: [No clubbing, no edema, no cyanosis.] Neurological Exam: [No focal neurologic deficit.] Alert oriented 3. Psychiatric: Normal mood affect and normal mental status examination - Labs CBC & Chem 7: 06/24/20 07:08 06/24/20 07:08 Labs: Abnormal Lab Results - Last 24 Hours (Table) 06/23/20 06/23/20 06/24/20 Range/Units 16:50 20:16 06:12 Neutrophils # (1.3-7.7) k/uL Lymphocytes # (1.0-4.8) k/uL Sodium (137-145) mmol/L Chloride (98-107) mmol/L BUN (9-20) mg/dL Creatinine (0.66-1.25) mg/dL Glucose (74-99) mg/dL POC Glucose (mg/dL) 205 H 206 H 137 H (75-99) mg/dL Magnesium (1.6-2.3) mg/dL Ferritin (22.0-322.0) ng/mL Lactate Dehydrogenase (313-618) U/L 06/24/20 06/24/20 06/24/20 Range/Units 07:08 07:08 11:57 Neutrophils # 9.4 H (1.3-7.7) k/uL Lymphocytes # 0.3 L (1.0-4.8) k/uL Sodium 136 L (137-145) mmol/L Chloride 108 H (98-107) mmol/L BUN 52 H (9-20) mg/dL Creatinine 1.45 H (0.66-1.25) mg/dL Glucose 122 H (74-99) mg/dL POC Glucose (mg/dL) 141 H (75-99) mg/dL Magnesium 2.6 H (1.6-2.3) mg/dL Ferritin 1358.9 H (22.0-322.0) ng/mL Lactate Dehydrogenase 1586 H (313-618) U/L Microbiology - Last 24 Hours (Table) 06/21/20 21:30 Blood Culture - Preliminary Blood No Growth after 48 hours 06/21/20 21:10 Blood Culture - Preliminary Blood No Growth after 48 hours Assessment and Plan Assessment: Impression: Acute hypoxic respiratory failure secondary to Covid 19 pneumonia. Chronic atrial fibrillation. Previous CO. And history of coronary artery disease. History of gout. Coronary artery disease and previous stent placement. GERD without esophagitis. Benign essential hypertension. Acute kidney injury, exact etiology is not clear. Could be hypovolemic in nature. Renal profile is improving with hydration, creatinine today is 1.45 Recommendation: Out of the window for REM. Continue the Covid 19 cocktail. Continue Lovenox and Decadron. Titrate FiO2 accordingly. Continue to monitor renal profile. We will continue to follow. Time with Patient: Less than 30
[2020-06-24] MEDS ORDERED: RIVAROXABAN 20 MG TAB PO SCH (17:30)
[2020-06-24 17:39] LABS: Glucose,Whole Blood 213 mg/dL (75-99)
[2020-06-24] MEDS: RIVAROXABAN 15 MG TAB PO SCH (17:42)
[2020-06-24 20:11] LABS: Glucose,Whole Blood 209 mg/dL (75-99)
[2020-06-24] MEDS: ATORVASTATIN 10 MG TAB PO SCH (20:40)
[2020-06-24] MEDS: METOPROLOL TARTRATE 25 MG TAB PO SCH (20:41)
[2020-06-24] MEDS: MORPHINE SULFATE 4 MG/ML SYRINGE IV PRN (20:48)
[2020-06-25 06:07] LABS: Glucose,Whole Blood 92 mg/dL (75-99)
[2020-06-25] MEDS: INSULIN ASPART (NovoLOG) 100 UNIT/ML VIAL SQ SCH ×4 (06:23→20:39)
[2020-06-25 08:07] LABS: Basophils % (A) 0 %; Eosinophils % (A) 0 %; HCT 44.2 % (39.0-53.0); HGB 15.2 gm/dL (13.0-17.5); Lymphocytes # (A) 0.5 k/uL (1.0-4.8); Lymphocytes % (A) 3 %; MCH 30.5 pg (25.0-35.0); MCHC 34.4 g/dL (31.0-37.0); MCV 88.8 fL (80.0-100.0); Mean Platelet Volume 9.3; Monocytes # (A) 0.8 k/uL (0-1.0); Monocytes % (A) 5 %; Neutrophils # (A) 13.3 k/uL (1.3-7.7); Neutrophils % (A) 90 %; Platelet Count 249 k/uL (150-450); RBC 4.98 m/uL (4.30-5.90); RDW 13.1 % (11.5-15.5); WBC 14.8 k/uL (3.8-10.6)
[2020-06-25 08:32] LABS: Calcium 8.6 mg/dL (8.4-10.2); Potassium 4.9 mmol/L (3.5-5.1)
[2020-06-25] MEDS: METOPROLOL TARTRATE 25 MG TAB PO SCH ×2 (08:41→20:33)
[2020-06-25] MEDS: CHOLECALCIFEROL 25 MCG (1000 IU) TABLET PO SCH (08:41)
[2020-06-25] MEDS: allopurinoL 100 MG TAB PO SCH (08:41)
[2020-06-25] MEDS: ZINC SULFATE 220 MG CAP PO SCH (08:41)
[2020-06-25] MEDS: FAMOTIDINE 20 MG/2 ML VIAL IV SCH (08:42)
[2020-06-25] MEDS: ASCORBIC ACID 500 MG TAB PO SCH ×2 (08:42→20:33)
[2020-06-25] MEDS: DEXAMETHASONE SOD PHOSPHATE 10 MG/ML 1 ML VIAL IV SCH (08:42)
[2020-06-25] MEDS ORDERED: ALPRAZolam 0.5 MG TAB PO PRN (08:56)
--- NOTE | 2020-06-25 12:19 | XR ---
EXAMINATION TYPE: XR chest 1V DATE OF EXAM: 06/25/2020 COMPARISON: 06/21/2020 HISTORY: Shortness of breath TECHNIQUE: Single frontal view of the chest is obtained. FINDINGS: Patchy bilateral interstitial and alveolar infiltrates with small bilateral effusion stabl e. Heart size stable. Atherosclerotic change aorta. Arthropathy of the shoulders. Biapical pleural th ickening. Degenerative change of the spine. IMPRESSION: Diffuse bilateral patchy infiltrate stable correlate for pneumonia.
[2020-06-25 12:20] LABS: Glucose,Whole Blood 128 mg/dL (75-99)
[2020-06-25] MEDS: MORPHINE SULFATE 4 MG/ML SYRINGE IV PRN ×2 (12:54→23:34)
[2020-06-25] MEDS ORDERED: HALOPERIDOL LACTATE 5 MG/ML 1 ML VIAL IVP ONE ×2 (12:57→13:00)
[2020-06-25] MEDS ORDERED: HALOPERIDOL LACTATE 5 MG/ML 1 ML VIAL ONE (13:00)
--- NOTE | 2020-06-25 14:28 | P.PN ---
Subjective This is a 70-year-old male with a past medical history significant for atrial fibrillation, hypertension, hyperlipidemia, coronary artery disease with previous stent placement and former nicotine dependence. Patient follows in the office with Dr. Montes. We have been asked to see the patient in consultation due to patient request. Patient is admitted to the hospital secondary to Covid 19. Patient has been maintained on 15 L high flow cannula and also wearing a nonrebreather mask with oxygen saturations of 88%. Blood pressure on admission 132/65. Telemetry revealed sinus mechanism. His home medication list does not include anticoagulation. Nursing spoke with the patient who could not remember if he was taking anticoagulation. According to the most recent office note, the patient was taking Xarelto 20 mg daily. EKG reveals sinus mechanism with PACs. Left axis deviation. Chest xray partially consolidative opacity in the right lung base consistent with acute pneumonic process. Venous Doppler: Negative for DVT bilaterally. Current home cardiac medications include lisinopril 2.5 mg daily, Crestor 5 mg daily, metoprolol tartrate 25 mg twice a day. Echocardiogram completed in 2017 revealed ejection fraction 35-40% 06/25/2020: BP 124/81, heart rate 63, Tachypneic, afebrile, patient needing BiPap to ma intain oxygen saturations. Chest xray- diffuse bilateral patchy infiltrate- that are stable. Patient currently being maintained on atorvastatin 20 mg nightly, titrate 25 mg twice a Xarelto 15mg nightly. Telemetry reviewed patient in sinus mechanism HR in 70-80s PHYSICAL EXAM: Thorough physical exam not completed secondary to limited evaluation/examination and due to Covid19 ASSESSMENT: Covid 19 Acute hypoxic respiratory failure Paroxysmal atrial fibrillation, currently maintaining sinus mechanism Coronary artery disease with previous PCI to mid circumflex and proximal OM, 2006 Ischemic cardiomyopathy, EF 35-40% Acute kidney injury- sCr 1.28 (1.45 yesterday) Hyperlipidemia Hypertension GERD Former nicotine dependence PLAN: 2D echo obtained this morning to assess cardiac structure and function- awaiting read Will continue metoprolol Resume Xarelto. Will begin at decreased dose of 15 mg daily Hold lisinopril secondary to FERNANDO and mild hyperkalemia Monitor kidney function Continue telemetry monitoring Further recommendations pending patient's course Nurse practitioner note has been reviewed by physician. Signing provider agrees with the documented findings, assessment, and plan of care. Objective - Vital Signs Vital signs: Vital Signs Temp 98.5 F 06/25/20 12:29 Pulse 63 06/25/20 13:37 Resp 41 H 06/25/20 13:37 BP 124/81 06/25/20 12:29 Pulse Ox 95 06/25/20 12:29 Intake & Output 06/24/20 06/25/20 06/25/20 18:59 06:59 18:59 Intake Total 605 0 Output Total 400 675 400 Balance 205 -675 -400 Weight 90 kg Intake: Oral 605 0 Output: Urine 400 675 400 Other: Voiding Method Urinal Urinal Urinal - Labs CBC & Chem 7: 06/25/20 07:35 06/25/20 07:35 Labs: Abnormal Lab Results - Last 24 Hours (Table) 06/24/20 06/24/20 06/24/20 Range/Units 07:08 17:21 20:09 WBC (3.8-10.6) k/uL Neutrophils # (1.3-7.7) k/uL Lymphocytes # (1.0-4.8) k/uL Sodium (137-145) mmol/L Carbon Dioxide (22-30) mmol/L BUN (9-20) mg/dL Creatinine (0.66-1.25) mg/dL POC Glucose (mg/dL) 213 H 209 H (75-99) mg/dL Ferritin 1358.9 H (22.0-322.0) ng/mL 06/25/20 06/25/20 06/25/20 Range/Units 07:35 07:35 12:19 WBC 14.8 H (3.8-10.6) k/uL Neutrophils # 13.3 H (1.3-7.7) k/uL Lymphocytes # 0.5 L (1.0-4.8) k/uL Sodium 136 L (137-145) mmol/L Carbon Dioxide 20 L (22-30) mmol/L BUN 45 H (9-20) mg/dL Creatinine 1.28 H (0.66-1.25) mg/dL POC Glucose (mg/dL) 128 H (75-99) mg/dL Ferritin (22.0-322.0) ng/mL Microbiology - Last 24 Hours (Table) 06/21/20 21:30 Blood Culture - Preliminary Blood No Growth after 72 hours 06/21/20 21:10 Blood Culture - Preliminary Blood No Growth after 72 hours
--- NOTE | 2020-06-25 17:04 | P.PN ---
Subjective Progress Note Date: 06/25/20 This is 70-year-old gentleman with past medical history of hypertension, and gastroesophageal reflux disease, CAD, IN, chronic back pain with history of laminectomy and multiple other medical issues presented to the ER with history of fevers ,worsening shortness of breath. Patient had seen his PCP last week on Thursday the and was recommended to go for his covid test. Patient apparently never went for his test. Yesterday completed a tele visit with his PCP, Dr. Encarnacion, referred to the ER. Patient tested positive for Covid infection while in the ER. On admission patient hypoxic with O2 sat of 80% on room air, required nonrebreather to maintain O2 sats in the 90s to 100%. Febrile on admission with temperature 99.9, normal WBC. D-dimer 2.41, sodium 132, BUN 52, creatinine 2.05, ferritin 1556.7 total bili elevated on admission now within normal limits, mildly elevated LFTs, LDH 2411currently 2018, CRP 158.4. Given patient's renal function and respiratory status unable to proceed with CTA of chest or VQ to rule out PE, currently on heparin drip. Chest x-ray reported partially consolidative opacity in the right lung base consistent with acute pneumonic process. Telemetry sinus rhythm with fusion complexes and PACs with left axis deviation. Denies chest pain, palpitations. 06/25/2020 during the night and again this morning patient removing his oxygen, desatting into the high 40s, turning blue, return to 15 L high flow in addition to nonrebreather, O2 sats initially in the high 80s. As the morning progressed, only maintaining O2 sats in the low 80s and transitioned to BiPAP mask. Chest x-ray reported diffuse bilateral patchy infiltrates stable. Denies chest pain, palpitations. Xanax administered for anxiety. Continue to develop more agitation attempting deplorable off mask. afternoon babysitter placed in room. Eventually patient required IV push Haldol. Patient now maintaining O2 sat of 94% on 100% BiPAP. Afebrile, WBC 14.8. Creatinine improving, 1.28. Objective - Vital Signs Vital signs: Vital Signs Temp 98.5 F 06/25/20 16:09 Pulse 67 06/25/20 16:09 Resp 21 06/25/20 16:09 BP 127/78 06/25/20 16:09 Pulse Ox 94 L 06/25/20 16:09 Intake & Output 06/24/20 06/25/20 06/25/20 18:59 06:59 18:59 Intake Total 605 0 Output Total 400 675 400 Balance 205 -675 -400 Weight 90 kg Intake: Oral 605 0 Output: Urine 400 675 400 Other: Voiding Method Urinal Urinal Urinal - Exam GENERAL: Sitting up in bed, confused ,respiratory effort increased HEENT: Normocephalic. Neck is supple. Pupils reactive. Neck reveals no JVD, carotid bruits, or thyromegaly. CHEST EXAMINATION: Trachea is central. Symmetrical expansion. Diminished CARDIAC: Normal S1, S2 with no gallops. No murmurs ABDOMEN: Soft. Bowel sounds normal. No organomegaly. No abdominal bruits. Extremities: reveal no edema. No clubbing or cyanosis Neurologically awake, alert, oriented x2 with well-coordinated movements. No focal deficits noted Skin: No rash, warm and dry - Labs CBC & Chem 7: 06/25/20 07:35 06/25/20 07:35 Labs: Abnormal Lab Results - Last 24 Hours (Table) 06/24/20 06/24/20 06/25/20 Range/Units 17:21 20:09 07:35 WBC 14.8 H (3.8-10.6) k/uL Neutrophils # 13.3 H (1.3-7.7) k/uL Lymphocytes # 0.5 L (1.0-4.8) k/uL Sodium (137-145) mmol/L Carbon Dioxide (22-30) mmol/L BUN (9-20) mg/dL Creatinine (0.66-1.25) mg/dL POC Glucose (mg/dL) 213 H 209 H (75-99) mg/dL 06/25/20 06/25/20 Range/Units 07:35 12:19 WBC (3.8-10.6) k/uL Neutrophils # (1.3-7.7) k/uL Lymphocytes # (1.0-4.8) k/uL Sodium 136 L (137-145) mmol/L Carbon Dioxide 20 L (22-30) mmol/L BUN 45 H (9-20) mg/dL Creatinine 1.28 H (0.66-1.25) mg/dL POC Glucose (mg/dL) 128 H (75-99) mg/dL Microbiology - Last 24 Hours (Table) 06/21/20 21:30 Blood Culture - Preliminary Blood No Growth after 72 hours 06/21/20 21:10 Blood Culture - Preliminary Blood No Growth after 72 hours Assessment and Plan Assessment: Sepsis secondary to Acute Covid -19 pneumonia Acute hypoxic respiratory failure secondary to the above Acute renal failure secondary to the above, improving Coronary artery disease with history of IN,stent placement Gastroesophageal reflux disease History of Gout Hypertension Chronic paroxysmal atrial fibrillation Chronic systolic CHF, EF 35-40% Plan: Continue on current medication regime ,monitoring and symptomatic treatment. Titration of FiO2 as per established parameters per pulmonary. Haldol for agitation.Maintain COvid regimen/vitamin supplements, Lovenox.Prognosis guarded given multiple complex medical issues. The impression and plan of care has been dictated as directed. : I performed a history and examination of this patient, discussed the same with the dictator. I agree with the dictator's note ,documented as a scribe. Any additional findings or plans will be noted.
[2020-06-25 17:08] LABS: Glucose,Whole Blood 149 mg/dL (75-99)
[2020-06-25] MEDS: RIVAROXABAN 15 MG TAB PO SCH (17:10)
[2020-06-25 17:22] LABS: ABG Base Excess -1.9 mmol/L; ABG HCO3 22 mmol/L (21-25); ABG Oxygen Saturation 92.3 % (94-97); ABG PCO2 33 mmHg (35-45); ABG PH 7.44 (7.35-7.45); ABG PO2 63 mmHg (83-108); ABG TCO2 23 mmol/L (19-24); Allen Test Performed? Yes
--- NOTE | 2020-06-25 18:31 | ECHOF ---
Referral Reason:LV function MEASUREMENTS -------- HEIGHT: 172.7 cm WEIGHT: 89.8 kg BP: 142/80 IVSd: 1.2 cm (0.6 - 1.1) LVIDd: 5.0 cm (3.9 - 5.3) LVPWd: 1.2 cm (0.6 - 1.1) EDV(Teich): 120 ml IVSs: 1.6 cm LVIDs: 3.9 cm LVPWs: 1.2 cm %IVS Thck: 30 % ESV(Teich): 64 ml EF(Teich): 46 % %FS: 23 % SV(Teich): 55 ml LALs A4C: 6.2 cm LAAs A4C: 15.3 cm LAESV A-L A4C: 32 ml LAESV MOD A4C: 30 ml LALs A2C: 5.8 cm LAAs A2C: 18.1 cm LAESV A-L A2C: 48 ml LAESV MOD A2C: 44 ml LAESV(A-L): 40 ml LAESV Index (A-L): 19.78 ml/m Ao Diam: 3.2 cm (2.0 - 3.7) AV Cusp: 2.0 cm (1.5 - 2.6) EPSS: 0.9 cm MV E Kev: 0.69 m/s MV DecT: 216 ms MV Dec Whiteside: 3.2 m/s MV A Kev: 0.79 m/s MV E/A Ratio: 0.87 MV PHT: 63 ms LVOT Vmax: 1.28 m/s LVOT maxP.59 mmHg AV Vmax: 2.00 m/s AV maxP.07 mmHg TR Vmax: 1.49 m/s TR maxP.89 mmHg RAP: 5.00 mmHg RVSP: 13.89 mmHg MV EF SLOPE: 91.68 mm/s (70 - 150) MV EXCURSION: 18.74 mm (> 18.000) FINDINGS -------- Sinus rhythm. This was a technically difficult study with suboptimal views. The left ventricular size is normal. There is mild concentric left ventricular hypertrophy. Overa ll left ventricular systolic function is mild-moderately impaired with, an EF between 40 - 45 %. The right ventricle is normal in size. Normal LA size by volume 22+/-6 ml/m2. The right atrial size is normal. 5.0mg of Lumason was utilized for enhancement of images Interatrial and interventricular septum intact. There is no evidence of aortic regurgitation. There is no evidence of aortic stenosis. No mitral regurgitation. Mild tricuspid regurgitation present. There is no evidence of pulmonary hypertension. The right v entricular systolic pressure, as measured by Doppler, is 13.89mmHg. There is no pulmonic regurgitation present. The aortic root size is normal. IVC Not well visulized. There is no pericardial effusion. CONCLUSIONS -------- 1. The left ventricular size is normal. 2. There is mild concentric left ventricular hypertrophy. 3. Overall left ventricular systolic function is mild-moderately impaired with, an EF between 40 - 45 %. 4. Mild tricuspid regurgitation present. ELECTRICIAN MACHINE SHOP: Rosa Mullen RDCS
--- NOTE | 2020-06-25 18:44 | P.PN ---
Subjective Progress Note Date: 06/25/20 Principal diagnosis: Acute hypoxemic respiratory failure. Acute hypoxic respiratory failure secondary to acute covid 19 pneumonitis. This is a 70-year-old gentleman that was seen in the emergency room on June 21. He was sent into the emergency room after being seen by his primary care doctor because of increasing shortness of breath, and concerns that the patient might have COVID 19. In addition to shortness of breath, the patient states he's been having lots of chest congestion, and is been coughing. When he coughs, it is painful in his chest. He has been sick for at least 2 weeks. In addition, he has muscle aches and joint aches, weakness and fatigue, and fever and chills. Currently, he is on a nonrebreather mask. Saturations are 92%. His primary care physician Dr. Vijay Encarnacion. He was not receiving any IV fluids. His primary medical problems include atrial fibrillation, coronary artery disease, hyperlipidemia, hypertension, gastroesophageal reflux disease, and prior myocardial infarction. The patient is a lifelong nontobacco user. White count is 4.9, hemoglobin 13.5, hematocrit 39.5, platelet count 92,000. PTT 61.3. D- dimer 2.41. Sodium 132, potassium 4.8, chloride 105, CO2 18, anion gap 9, BUN and creatinine 52 and 2.05. Calcium 7.6, AST 156, pO2 102, LDH 2018. C- reactive protein 158. I was not able to look at the chest x-ray. There is apparently a partially occlusive opacity at the right lung base consistent with acute pneumonic process. CT angiogram was not performed. Patient was reevaluated today on 06/23/2020, patient is feeling better today compared to how he felt yesterday. Patient is on high flow cannula running at 15 L/m, his O2 saturation is in the mid to high 80s he is on 100% FiO2 basically. His chest x-ray does not seem to be impressive, he does have consolidative opacity in the right lung base consistent with acute pneumonic process. Left lung is relatively clear. No significant pulmonary congestion. D-dimer is 2.56. Renal profile is not good enough for performing a CT angiogram of the chest, however I will recommend bilateral venous Doppler on this patient just to make sure we were not dealing with thromboembolic process. Again the patient tells me that his feeling better today compared to how he felt yesterday. Clinically improving. Patient was reevaluated today on 06/24/2020, patient remains on high flow oxygen. He is on 15 L high flow cannula, and his O2 saturations 92% at best. Patient co ntinues to have shortness of breath, intermittent episodes of cough. He has no fever, his vital signs are relatively stable. During my evaluation, patient was constantly coughing. CBC is relatively normal electrolytes are normal BUN is 52 creatinine 1.45. LDH is elevated at 1586. Venous Doppler yesterday was negative. Chest x-ray on admission showed consolidation at the right lung base. I also suspect some consolidation at the left base/retrocardiac area. Progress note dated 06/25/2020. Currently, the patient was on BiPAP and on percent. Earlier today, he desaturated, and the nurses had a hard time getting his saturations back up. We did do a blood gas on the patient. PO2 was 63, pCO2 was 33, pH was 7.44. That was on 100% on the BiPAP. White count 14.8, hemoglobin hematocrit and platelet count all normal. Sodium 136, potassium 4.9, chlorides 107, CO2 20, anion gap 9, BUN 45, creatinine 1.28. Chest x-ray today showed diffuse bilateral patchy infiltrates which are stable. Yesterday, he was on high flow nasal O2 at 15 L/m. Objective - Vital Signs Vital signs: Vital Signs Temp 98.5 F 06/25/20 16:09 Pulse 67 06/25/20 16:09 Resp 21 06/25/20 16:09 BP 127/78 06/25/20 16:09 Pulse Ox 94 L 06/25/20 16:09 Intake & Output 06/24/20 06/25/20 06/25/20 18:59 06:59 18:59 Intake Total 605 0 Output Total 400 675 900 Balance 205 -675 -900 Weight 90 kg Intake: Oral 605 0 Output: Urine 400 675 900 Other: Voiding Method Urinal Urinal Urinal - Exam Mildly tachypnea, but oriented. Currently on BiPAP, 100%. HEENT examination is grossly unremarkable. Neck supple. Full range of motion. No adenopathy thyromegaly or neck vein distention. Cardiovascular examination reveals regular rhythm rate. S1-S2 normal. No S3 or S4. No discernible murmur noted. Heart sounds distant. Heart rate 67 bpm. Lungs reveal coarse bilateral rhonchi and crackles. Breath sounds equal. No wheezes. Abdomen soft bowel sounds are heard. No masses or tenderness. Extremities are intact. No cyanosis clubbing or edema. Skin is without rash or lesion. Neurologic examination is brief but nonfocal. - Labs CBC & Chem 7: 06/25/20 07:35 06/25/20 07:35 Labs: Abnormal Lab Results - Last 24 Hours (Table) 06/24/20 06/25/20 06/25/20 Range/Units 20:09 07:35 07:35 WBC 14.8 H (3.8-10.6) k/uL Neutrophils # 13.3 H (1.3-7.7) k/uL Lymphocytes # 0.5 L (1.0-4.8) k/uL ABG pCO2 (35-45) mmHg ABG pO2 (83-108) mmHg ABG O2 Saturation (94-97) % Sodium 136 L (137-145) mmol/L Carbon Dioxide 20 L (22-30) mmol/L BUN 45 H (9-20) mg/dL Creatinine 1.28 H (0.66-1.25) mg/dL POC Glucose (mg/dL) 209 H (75-99) mg/dL 06/25/20 06/25/20 06/25/20 Range/Units 12:19 17:06 17:18 WBC (3.8-10.6) k/uL Neutrophils # (1.3-7.7) k/uL Lymphocytes # (1.0-4.8) k/uL ABG pCO2 33 L (35-45) mmHg ABG pO2 63 L (83-108) mmHg ABG O2 Saturation 92.3 L (94-97) % Sodium (137-145) mmol/L Carbon Dioxide (22-30) mmol/L BUN (9-20) mg/dL Creatinine (0.66-1.25) mg/dL POC Glucose (mg/dL) 128 H 149 H (75-99) mg/dL Microbiology - Last 24 Hours (Table) 06/21/20 21:30 Blood Culture - Preliminary Blood No Growth after 72 hours 06/21/20 21:10 Blood Culture - Preliminary Blood No Growth after 72 hours Assessment and Plan Assessment: Acute hypoxemic respiratory failure secondary to COVID19 pneumonia/pneumonitis. History of atrial fibrillation. History of CAD with previous myocardial infarction. Gastroesophageal reflux disease. History of essential hypertension. History of hyperlipidemia. Status post heart catheterization with stent placement. History of rheumatic fever. History of gout. Status post back surgery. Acute kidney injury. Plan: Plan dated 06/22/2020. The patient is beyond the window for REM. The patient should get ascorbic acid, vitamin D3, zinc. In addition, the patient should get Decadron 6 mg a day, Lovenox 40 mg subcu daily. We'll follow closely. The patient's at high risk for deterioration given the fact that his saturations are only 92% on nonrebreather. This is a patient who may need to eventually come to the in tensive care unit for closer monitoring and evaluation. We will continue to follow closely. We'll make recommendations for appropriate. The patient's prognosis is very guarded. Plan dated 06/25/2020. I saw the patient initially back on June 22. He was outside the window for REM. He received vitamin C, vitamin D3, and zinc, as well as Lovenox and Decadron. Today, his saturations were much lower, and he needed BiPAP therapy, 100% FiO2. His blood gases were reasonable. We'll continue to watch him very carefully. The patient may need transfer to the intensive care unit if he continues to struggle. Additional recommendations and suggestions are forthcoming. Prognosis is guarded. Medications are reviewed. Time with Patient: Less than 30
[2020-06-25 20:21] LABS: Glucose,Whole Blood 130 mg/dL (75-99)
[2020-06-25] MEDS: FAMOTIDINE 20 MG TAB PO SCH (20:32)
[2020-06-25] MEDS: ATORVASTATIN 10 MG TAB PO SCH (20:33)
[2020-06-26] MEDS ORDERED: OLANZapine 5 MG TAB PO SCH (00:15)
[2020-06-26] MEDS: HALOPERIDOL LACTATE 5 MG/ML 1 ML VIAL IM PRN ×2 (05:02→08:45)
[2020-06-26 06:13] LABS: Glucose,Whole Blood 93 mg/dL (75-99)
[2020-06-26] MEDS: INSULIN ASPART (NovoLOG) 100 UNIT/ML VIAL SQ SCH ×4 (07:07→20:45)
[2020-06-26 07:28] LABS: Appearance,Urine Clear (Clear); Bilirubin,Urine Negative (Negative); Blood,Urine Small (Negative); Color,Urine Yellow; Glucose,Urine (UA) Negative (Negative); Ketones,Urine Negative (Negative); Leukocyte Esterase,Urine Negative (Negative); Mucus,Urine Rare /hpf; Nitrite,Urine Negative (Negative); PH, Urine 5.5 (5.0-8.0); Protein,Urine Trace (Negative); RBC,Urine 3 /hpf (0-5); Specific Gravity,Urine 1.015 (1.001-1.035); Urobilinogen,Urine <2.0 mg/dL (<2.0); WBC,Urine 1 /hpf (0-5)
[2020-06-26] MEDS: ALBUTEROL HFA INHALER INHALATION PRN ×4 (07:59→19:44)
[2020-06-26] MEDS ORDERED: ACETAMINOPHEN IV (For NPO) 1,000 MG in EMPTY BAG 1 BAG IVPB ONE (08:30)
[2020-06-26] MEDS: CHOLECALCIFEROL 25 MCG (1000 IU) TABLET PO SCH (09:09)
[2020-06-26] MEDS: DEXAMETHASONE SOD PHOSPHATE 10 MG/ML 1 ML VIAL IV SCH (09:09)
[2020-06-26] MEDS: FAMOTIDINE 20 MG TAB PO SCH ×2 (09:09→20:37)
[2020-06-26] MEDS: allopurinoL 100 MG TAB PO SCH (09:09)
[2020-06-26] MEDS: ASCORBIC ACID 500 MG TAB PO SCH ×2 (09:09→20:37)
[2020-06-26] MEDS: METOPROLOL TARTRATE 25 MG TAB PO SCH ×2 (09:09→20:38)
[2020-06-26] MEDS: ZINC SULFATE 220 MG CAP PO SCH (09:09)
[2020-06-26 09:28] LABS: Basophils % (A) 0 %; Eosinophils % (A) 0 %; HCT 41.2 % (39.0-53.0); HGB 15.1 gm/dL (13.0-17.5); Lymphocytes # (A) 2.6 k/uL (1.0-4.8); Lymphocytes % (A) 17 %; MCH 32.8 pg (25.0-35.0); MCHC 36.6 g/dL (31.0-37.0); MCV 89.6 fL (80.0-100.0); Mean Platelet Volume 8.8; Monocytes # (A) 2.1 k/uL (0-1.0); Monocytes % (A) 14 %; Neutrophils # (A) 10.2 k/uL (1.3-7.7); Neutrophils % (A) 68 %; Platelet Count 271 k/uL (150-450); RDW 13.1 % (11.5-15.5); WBC 14.9 k/uL (3.8-10.6)
[2020-06-26 09:29] LABS: Calcium 8.7 mg/dL (8.4-10.2); Magnesium 2.2 mg/dL (1.6-2.3); Potassium 5.2 mmol/L (3.5-5.1)
[2020-06-26] MEDS: MORPHINE SULFATE 4 MG/ML SYRINGE IV PRN (10:29)
[2020-06-26 11:50] LABS: Glucose,Whole Blood 120 mg/dL (75-99)
[2020-06-26] MEDS ORDERED: OLANZapine 5 MG TAB PO ONE (13:37)
--- NOTE | 2020-06-26 13:50 | P.CN ---
Psychiatric Consult - . Consult date: 06/26/20 Consult:: 06/26/20 13:38 IDENTIFYING DATA: This patient is a 70-year-old male REASON FOR REFERRAL: Psychiatry was consulted for agitation HISTORY OF PRESENT ILLNESS: The patient presented to the hospital on and was sent in by his PCP for concerns of possible covid-19 infection. Patient was found to be short of breath in the ER when he first arrived and had a dry cough and tested positive for covid 19 and was found to have pneumonia. Patient has been admitted to the medical floors and treated for his pneumonia with steroids. Patient was found by staff to be agitated today removing his oxygen and desatted overnight. Patient was placed on BiPAP mask and later on today became more agitated. Nurses taking care of patient states that patient was calmer yesterday however today has been more aggressive and trying to pull at his restraints. Nurse also gave patient Haldol this morning prn. Patient was seen at the bedside today pulling at his restraints as the techs and nurse were trying to move the patient in his bed. Patient repeatedly tried to swing at the staff and repeatedly stated "let me loose". She appeared to be fairly anxious and agitated and had a poor attention span. He is able to follow some commands and answer some questions appropriately. He knew who the current president was and he knew what hospital he was in and his full name. She took a guess at the date and knew that it was "the seventh of something 21". He claims that he is feeling anxious and restless. He was not able to cooperate with most of the interview however did mention that he is denying any suicidal or homicidal id eations intent or plan and denying any auditory or visual hallucinations. History was fairly limited due to patient's mental status. PAST PSYCHIATRIC HISTORY: Patient claims he has no psychiatric history. Patient denies being on any psychiatric medications. Patient denies any previous psychiatric hospitalizations. Patient denies any psychiatric outpatient follow- up. PAST MEDICAL HISTORY: Hypertension, hyperlipidemia, A. fib, coronary artery disease, GERD. ALLERGIES: as per EMR. CHEMICAL DEPENDENCY HISTORY: as per HPI. FAMILY PSYCHIATRIC/SUBSTANCE USE HISTORY: Unable to obtain SOCIAL HISTORY: Unable to obtain MENTAL STATUS EXAM: General Appearance: Patient appears to be overweight, restless and agitated in the bed stated age is alert. Patient appears to have fair hygiene and grooming wearing hospital gown with poor eye contact. Wearing a BiPAP and pulling at his restraints Behavior: Patient is calmly lying in bed agitated and pulling at restraints. Speech: Patient's speech is nonpressured. Mumbling Mood/Affect: Patient reports their mood is "ok", affect is congruent Suicidality/Homicidality: Patient denies having any suicidal or homicidal ideation intent or plan. Perceptions: Patient denies any visual hallucinations and denies any auditory hallucinations Though content/process: Perseverating, preoccupied with his restraints. [place]. Memory and concentration: AOX2-3, poor attention span. unable to do full cog exam. Judgment and insight: poor/impuslive IMPRESSIONS: Delirium, likely secondary to medications (steroids, BZD, opiates) PLAN: -At this time patient DOES NOT meet criteria for inpatient psychiatric admission. -Patient DOES NOT have decision making capacity at this time and is unable to reason through and communicate/appreciate the risks, benefits and alternatives to treatment. 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 Increased nighttime Zyprexa to 7.5 mg daily at bedtime. Continue with Haldol 4 mg IM every 6 hours when necessary for agitation. Given the patient has been receiving steroids, benzodiazipines, opiates, these are all likely the contributing factors to patient's psychosis/agitation and consider decreasing these when possible/appropriate given patients medical concerns. -check another ekg for qtc interval -Communicated plan to patient's nurse -Will continue to follow along -Please contact with any questions.
--- NOTE | 2020-06-26 14:48 | P.PN ---
Subjective This is a 70-year-old male with a past medical history significant for atrial fibrillation, hypertension, hyperlipidemia, coronary artery disease with previous stent placement and former nicotine dependence. Patient follows in the office with Dr. Montes. We have been asked to see the patient in consultation due to patient request. Patient is admitted to the hospital secondary to Covid 19. Patient has been maintained on 15 L high flow cannula and also wearing a nonrebreather mask with oxygen saturations of 88%. Blood pressure on admission 132/65. Telemetry revealed sinus mechanism. His home medication list does not include anticoagulation. Nursing spoke with the patient who could not remember if he was taking anticoagulation. According to the most recent office note, the patient was taking Xarelto 20 mg daily. EKG reveals sinus mechanism with PACs. Left axis deviation. Chest xray partially consolidative opacity in the right lung base consistent with acute pneumonic process. Venous Doppler: Negative for DVT bilaterally. Current home cardiac medications include lisinopril 2.5 mg daily, Crestor 5 mg daily, metoprolol tartrate 25 mg twice a day. Echocardiogram completed in 2018 revealed ejection fraction 35-40% 06/26/2020: Patient agitated today, Psych is being consulted for the patient. BP 143/80, Tachycardic this morning HR 120s, now HR on telemetry 80s-90s. Tachypneic, Febrile 102.6F , patient continues to need BiPap to maintain oxygen saturations. Chest xray yesterday- diffuse bilateral patchy infiltrate- that are stable. Patient currently being maintained on atorvastatin 10 mg nightly, metoprolol tartrate 25 mg twice a Xarelto 15mg nightly. Patient is currently maintaining sinus mechanism. Laboratory reviewed, Sodium 135, K 5.2, sCr 1.23, Magnesium 2.2. 2D echo reviewed- EF 40-45%, mild TR is present PHYSICAL EXAM: Thorough physical exam not completed secondary to limited evaluation/examination and due to Covid19 ASSESSMENT: Covid 19 Acute hypoxic respiratory failure Paroxysmal atrial fibrillation, currently maintaining sinus mechanism Coronary artery disease with previous PCI to mid circumflex and proximal OM, 2006 Ischemic cardiomyopathy, EF 35-40%, 2D echo with EF 40-45% Acute kidney injury- improving sCr 1.23 Hyperlipidemia Hypertension GERD Former nicotine dependence PLAN: Continue metoprolol Patient currently on Xarelto 15 mg daily, renal function improving, will place patient back on therapeutic home dose Xarelto 20mg daily. Lisinopril being held at this time secondary to FERNANDO and hyperkalemia Monitor kidney function and electrolytes We will sign off at this time, follow the patient PRN. Please reach out for further questions or concerns. Nurse practitioner note has been reviewed by physician. Signing provider agrees with the documented findings, assessment, and plan of care. Objective - Vital Signs Vital signs: Vital Signs Temp 100.0 F H 06/26/20 11:37 Pulse 79 06/26/20 12:00 Resp 24 06/26/20 12:00 BP 162/74 06/26/20 12:00 Pulse Ox 94 L 06/26/20 12:00 Intake & Output 06/25/20 06/26/20 06/26/20 18:59 06:59 18:59 Intake Total 0 50 50 Output Total 900 550 600 Balance -900 -500 -550 Weight 91.5 kg Intake: Oral 0 50 50 Output: Urine 900 550 600 Other: Voiding Method Urinal Urinal Urinal # Voids 2 1 - Labs CBC & Chem 7: 06/26/20 07:52 06/26/20 07:52 Labs: Abnormal Lab Results - Last 24 Hours (Table) 06/25/20 06/25/20 06/25/20 Range/Units 17:06 17:18 20:19 WBC (3.8-10.6) k/uL Neutrophils # (1.3-7.7) k/uL Monocytes # (0-1.0) k/uL ABG pCO2 33 L (35-45) mmHg ABG pO2 63 L (83-108) mmHg ABG O2 Saturation 92.3 L (94-97) % Sodium (137-145) mmol/L Potassium (3.5-5.1) mmol/L Carbon Dioxide (22-30) mmol/L BUN (9-20) mg/dL POC Glucose (mg/dL) 149 H 130 H (75-99) mg/dL Urine Protein (Negative) Urine Blood (Negative) Urine Mucus (None) /hpf 06/26/20 06/26/20 06/26/20 Range/Units 07:00 07:52 07:52 WBC 14.9 H (3.8-10.6) k/uL Neutrophils # 10.2 H (1.3-7.7) k/uL Monocytes # 2.1 H (0-1.0) k/uL ABG pCO2 (35-45) mmHg ABG pO2 (83-108) mmHg ABG O2 Saturation (94-97) % Sodium 135 L (137-145) mmol/L Potassium 5.2 H (3.5-5.1) mmol/L Carbon Dioxide 18 L (22-30) mmol/L BUN 38 H (9-20) mg/dL POC Glucose (mg/dL) (75-99) mg/dL Urine Protein Trace H (Negative) Urine Blood Small H (Negative) Urine Mucus Rare H (None) /hpf 06/26/20 Range/Units 11:42 WBC (3.8-10.6) k/uL Neutrophils # (1.3-7.7) k/uL Monocytes # (0-1.0) k/uL ABG pCO2 (35-45) mmHg ABG pO2 (83-108) mmHg ABG O2 Saturation (94-97) % Sodium (137-145) mmol/L Potassium (3.5-5.1) mmol/L Carbon Dioxide (22-30) mmol/L BUN (9-20) mg/dL POC Glucose (mg/dL) 120 H (75-99) mg/dL Urine Protein (Negative) Urine Blood (Negative) Urine Mucus (None) /hpf Microbiology - Last 24 Hours (Table) 06/21/20 21:30 Blood Culture - Preliminary Blood No Growth after 96 hours 06/21/20 21:10 Blood Culture - Preliminary Blood No Growth after 96 hours
[2020-06-26] MEDS ORDERED: LORazepam 2 MG/ML INJ IV ONE (15:49)
[2020-06-26 17:02] LABS: Glucose,Whole Blood 149 mg/dL (75-99)
[2020-06-26] MEDS: RIVAROXABAN 20 MG TAB PO SCH (17:38)
[2020-06-26] MEDS: SODIUM CHLORIDE 0.9% 1,000 ML IV SCH (17:40)
--- NOTE | 2020-06-26 17:54 | P.PN ---
Subjective Progress Note Date: 06/26/20 This is 70-year-old gentleman with past medical history of hypertension, and gastroesophageal reflux disease, CAD, SC, chronic back pain with history of laminectomy and multiple other medical issues presented to the ER with history of fevers ,worsening shortness of breath. Patient had seen his PCP last week on Thursday the and was recommended to go for his covid test. Patient apparently never went for his test. Yesterday completed a tele visit with his PCP, Dr. Encarnacion, referred to the ER. Patient tested positive for Covid infection while in the ER. On admission patient hypoxic with O2 sat of 80% on room air, required nonrebreather to maintain O2 sats in the 90s to 100%. Febrile on admission with temperature 99.9, normal WBC. D-dimer 2.41, sodium 132, BUN 52, creatinine 2.05, ferritin 1556.7 total bili elevated on admission now within normal limits, mildly elevated LFTs, LDH 2411currently 2018, CRP 158.4. Given patient's renal function and respiratory status unable to proceed with CTA of chest or VQ to rule out PE, currently on heparin drip. Chest x-ray reported partially consolidative opacity in the right lung base consistent with acute pneumonic process. Telemetry sinus rhythm with fusion complexes and PACs with left axis deviation. Denies chest pain, palpitations. 06/25/2020 during the night and again this morning patient removing his oxygen, desatting into the high 40s, turning blue, return to 15 L high flow in addition to nonrebreather, O2 sats initially in the high 80s. As the morning progressed, only maintaining O2 sats in the low 80s and transitioned to BiPAP mask. Chest x-ray reported diffuse bilateral patchy infiltrates stable. Denies chest pain, palpitations. Xanax administered for anxiety. Continue to develop more agitation attempting deplorable off mask. state farm agent placed in room. Eventually patient required IV push Haldol. Patient now maintaining O2 sat of 94% on 100% BiPAP. Afebrile, WBC 14.8. Creatinine improving, 1.28. 06/26/2020 requiring 100% BiPAP to maintain O2 sats in the low 90s. T-max 102.6. WBC 14.9. Telemetry reporting Sinus Tachycardia with heart rates up into the 120s. Echo reported LV function 40-45% . Potassium 5.2, Renal function improving. Blood sugars controlled. Anxious, agitated, combative at times. Sitter remains at bedside. Receiving when necessary Haldol. Staff reports patient was asking for the bar maid, unclear if history of EtOH abuse, with questionable withdrawal. Psychiatry consult in place with recommendations pending. Objective - Vital Signs Vital signs: Vital Signs Temp 100.0 F H 06/26/20 11:37 Pulse 122 H 06/26/20 08:00 Resp 43 H 06/26/20 08:00 BP 143/80 06/26/20 08:00 Pulse Ox 99 06/26/20 08:00 Intake & Output 06/25/20 06/26/20 06/26/20 18:59 06:59 18:59 Intake Total 0 50 50 Output Total 900 550 600 Balance -900 -500 -550 Weight 91.5 kg Intake: Oral 0 50 50 Output: Urine 900 550 600 Other: Voiding Method Urinal Urinal # Voids 2 1 - Labs CBC & Chem 7: 06/26/20 07:52 06/26/20 07:52 Labs: Abnormal Lab Results - Last 24 Hours (Table) 06/25/20 06/25/20 06/25/20 Range/Units 12:19 17:06 17:18 WBC (3.8-10.6) k/uL ABG pCO2 33 L (35-45) mmHg ABG pO2 63 L (83-108) mmHg ABG O2 Saturation 92.3 L (94-97) % Sodium (137-145) mmol/L Potassium (3.5-5.1) mmol/L Carbon Dioxide (22-30) mmol/L BUN (9-20) mg/dL POC Glucose (mg/dL) 128 H 149 H (75-99) mg/dL Urine Protein (Negative) Urine Blood (Negative) Urine Mucus (None) /hpf 06/25/20 06/26/20 06/26/20 Range/Units 20:19 07:00 07:52 WBC 14.9 H (3.8-10.6) k/uL ABG pCO2 (35-45) mmHg ABG pO2 (83-108) mmHg ABG O2 Saturation (94-97) % Sodium (137-145) mmol/L Potassium (3.5-5.1) mmol/L Carbon Dioxide (22-30) mmol/L BUN (9-20) mg/dL POC Glucose (mg/dL) 130 H (75-99) mg/dL Urine Protein Trace H (Negative) Urine Blood Small H (Negative) Urine Mucus Rare H (None) /hpf 06/26/20 Range/Units 07:52 WBC (3.8-10.6) k/uL ABG pCO2 (35-45) mmHg ABG pO2 (83-108) mmHg ABG O2 Saturation (94-97) % Sodium 135 L (137-145) mmol/L Potassium 5.2 H (3.5-5.1) mmol/L Carbon Dioxide 18 L (22-30) mmol/L BUN 38 H (9-20) mg/dL POC Glucose (mg/dL) (75-99) mg/dL Urine Protein (Negative) Urine Blood (Negative) Urine Mucus (None) /hpf Microbiology - Last 24 Hours (Table) 06/21/20 21:30 Blood Culture - Preliminary Blood No Growth after 96 hours 06/21/20 21:10 Blood Culture - Preliminary Blood No Growth after 96 hours Assessment and Plan Assessment: Sepsis secondary to Acute Covid -19 pneumonia Acute hypoxic respiratory failure secondary to the above Acute delirium, acute metabolic encephalopathy secondary to the above, possibly acute hypoxic encephalopathy, medication induced, steroids, benzos, opiates. Possible steroid psychosis. Acute renal failure secondary to the above, improving Gastroesophageal reflux disease Chronic paroxysmal atrial fibrillation Chronic systolic CHF, EF 35-40% Coronary artery disease with history of SC,stent placement Former nicotine dependence Hypertension Plan: Continue on current medication regime ,monitoring and symptomatic treatment. Evaluated by psychiatry with recommendations noted and appreciated; extra dose of Zyprexa or gait in addition to increased nighttime Zyprexa dose, continue on Haldol with recommendations to decrease benzos, opiates and and steroids. Continue COvid regimen/vitamin supplements, Lovenox.close monitoring of renal function with repeat labs ordered for a.m. Prognosis guarded given multiple complex medical issues. The impression and plan of care has been dictated as directed. : I performed a history and examination of this patient, discussed the same with the dictator. I agree with the dictator's note ,documented as a scribe. Any additional findings or plans will be noted.
--- NOTE | 2020-06-26 18:21 | P.PN ---
Subjective Progress Note Date: 06/26/20 Principal diagnosis: Acute hypoxemic respiratory failure. Acute hypoxic respiratory failure secondary to acute covid 19 pneumonitis. This is a 70-year-old gentleman that was seen in the emergency room on June 21. He was sent into the emergency room after being seen by his primary care doctor because of increasing shortness of breath, and concerns that the patient might have COVID 19. In addition to shortness of breath, the patient states he's been having lots of chest congestion, and is been coughing. When he coughs, it is painful in his chest. He has been sick for at least 2 weeks. In addition, he has muscle aches and joint aches, weakness and fatigue, and fever and chills. Currently, he is on a nonrebreather mask. Saturations are 92%. His primary care physician Dr. Vijay Encarnacion. He was not receiving any IV fluids. His primary medical problems include atrial fibrillation, coronary artery disease, hyperlipidemia, hypertension, gastroesophageal reflux disease, and prior myocardial infarction. The patient is a lifelong nontobacco user. White count is 4.9, hemoglobin 13.5, hematocrit 39.5, platelet count 92,000. PTT 61.3. D- dimer 2.41. Sodium 132, potassium 4.8, chloride 105, CO2 18, anion gap 9, BUN and creatinine 52 and 2.05. Calcium 7.6, AST 156, pO2 102, LDH 2018. C- reactive protein 158. I was not able to look at the chest x-ray. There is apparently a partially occlusive opacity at the right lung base consistent with acute pneumonic process. CT angiogram was not performed. Patient was reevaluated today on 06/23/2020, patient is feeling better today compared to how he felt yesterday. Patient is on high flow cannula running at 15 L/m, his O2 saturation is in the mid to high 80s he is on 100% FiO2 basically. His chest x-ray does not seem to be impressive, he does have consolidative opacity in the right lung base consistent with acute pneumonic process. Left lung is relatively clear. No significant pulmonary congestion. D-dimer is 2.56. Renal profile is not good enough for performing a CT angiogram of the chest, however I will recommend bilateral venous Doppler on this patient just to make sure we were not dealing with thromboembolic process. Again the patient tells me that his feeling better today compared to how he felt yesterday. Clinically improving. Patient was reevaluated today on 06/24/2020, patient remains on high flow oxygen. He is on 15 L high flow cannula, and his O2 saturations 92% at best. Patient co ntinues to have shortness of breath, intermittent episodes of cough. He has no fever, his vital signs are relatively stable. During my evaluation, patient was constantly coughing. CBC is relatively normal electrolytes are normal BUN is 52 creatinine 1.45. LDH is elevated at 1586. Venous Doppler yesterday was negative. Chest x-ray on admission showed consolidation at the right lung base. I also suspect some consolidation at the left base/retrocardiac area. Progress note dated 06/25/2020. Currently, the patient was on BiPAP and on percent. Earlier today, he desaturated, and the nurses had a hard time getting his saturations back up. We did do a blood gas on the patient. PO2 was 63, pCO2 was 33, pH was 7.44. That was on 100% on the BiPAP. White count 14.8, hemoglobin hematocrit and platelet count all normal. Sodium 136, potassium 4.9, chlorides 107, CO2 20, anion gap 9, BUN 45, creatinine 1.28. Chest x-ray today showed diffuse bilateral patchy infiltrates which are stable. Yesterday, he was on high flow nasal O2 at 15 L/m. Progress note dated 06/26/2020. 70-year-old male, currently on BiPAP, at 16/6 and 80%. His saturations were good, so the FiO2 was dropped from 80% down to 60%. The patient appears to be doing reasonably well, although he did become somewhat tachypnea today when he was being evaluated here. Saturations are 90% on the 60% FiO2. Temperature is 98.1, and blood pressure 173/104. White count 14.9, and hemoglobin, hematocrit, and platelet count are all normal. Sodium 135, potassium 5.2, chlorides 106, CO2 18, anion gap 11, BUN 38, creatinine 1.23. Chest x-ray from June 25, shows bilateral patchy infiltrates. Objective - Vital Signs Vital signs: Vital Signs Temp 100.0 F H 06/26/20 11:37 Pulse 79 06/26/20 12:00 Resp 24 06/26/20 12:00 BP 162/74 06/26/20 12:00 Pulse Ox 94 L 06/26/20 12:00 Intake & Output 06/25/20 06/26/20 06/26/20 18:59 06:59 18:59 Intake Total 0 50 770 Output Total 900 550 600 Balance -900 -500 170 Weight 91.5 kg Intake: Intake, IV Titration 720 Amount Sodium Chloride 0.9% 1, 720 000 ml @ 120 mls/hr IV . Q8H20M [facility] Rx#:[id number] Oral 0 50 50 Output: Urine 900 550 600 Other: Voiding Method Urinal Urinal Urinal # Voids 2 1 - Exam Mildly tachypnea, but oriented. Currently on BiPAP, 80%, being dropped down to 60%.. HEENT examination is grossly unremarkable. BiPAP mask in place. Neck supple. Full range of motion. No adenopathy thyromegaly or neck vein distention. Cardiovascular examination reveals regular rhythm rate. S1-S2 normal. No S3 or S4. No discernible murmur noted. Heart sounds distant. Heart rate 96 bpm. Lungs reveal coarse bilateral rhonchi and crackles. Breath sounds equal. No wheezes. Abdomen soft bowel sounds are heard. No masses or tenderness. Extremities are intact. No cyanosis clubbing or edema. Skin is without rash or lesion. Neurologic examination is brief but nonfocal. - Labs CBC & Chem 7: 06/26/20 07:52 06/26/20 07:52 Labs: Abnormal Lab Results - Last 24 Hours (Table) 06/25/20 06/26/20 06/26/20 Range/Units 20:19 07:00 07:52 WBC 14.9 H (3.8-10.6) k/uL Neutrophils # 10.2 H (1.3-7.7) k/uL Monocytes # 2.1 H (0-1.0) k/uL Sodium (137-145) mmol/L Potassium (3.5-5.1) mmol/L Carbon Dioxide (22-30) mmol/L BUN (9-20) mg/dL POC Glucose (mg/dL) 130 H (75-99) mg/dL Urine Protein Trace H (Negative) Urine Blood Small H (Negative) Urine Mucus Rare H (None) /hpf 06/26/20 06/26/2021 Range/Units 07:52 11:42 16:55 WBC (3.8-10.6) k/uL Neutrophils # (1.3-7.7) k/uL Monocytes # (0-1.0) k/uL Sodium 135 L (137-145) mmol/L Potassium 5.2 H (3.5-5.1) mmol/L Carbon Dioxide 18 L (22-30) mmol/L BUN 38 H (9-20) mg/dL POC Glucose (mg/dL) 120 H 149 H (75-99) mg/dL Urine Protein (Negative) Urine Blood (Negative) Urine Mucus (None) /hpf Microbiology - Last 24 Hours (Table) 06/21/20 21:30 Blood Culture - Preliminary Blood No Growth after 96 hours 06/21/20 21:10 Blood Culture - Preliminary Blood No Growth after 96 hours Assessment and Plan Assessment: Acute hypoxemic respiratory failure secondary to COVID19 pneumonia/pneumonitis. History of atrial fibrillation. History of CAD with previous myocardial infarction. Gastroesophageal reflux disease. History of essential hypertension. History of hyperlipidemia. Status post heart catheterization with stent placement. History of rheumatic fever. History of gout. Status post back surgery. Acute kidney injury. Plan: Plan dated 06/22/2020. The patient is beyond the window for REM. The patient should get ascorbic acid, vitamin D3, zinc. In addition, the patient should get Decadron 6 mg a day, Lovenox 40 mg subcu daily. We'll follow closely. The patient's at high risk for deterioration given the fact that his saturations are only 92% on nonrebreather. This is a patient who may need to eventually come to the intensive care unit for closer monitoring and evaluation. We will continue to follow closely. We'll make recommendations for appropriate. The patient's prognosis is very guarded. Plan dated 06/25/2020. I saw the patient initially back on June 22. He was outside the window for REM. He received vitamin C, vitamin D3, and zinc, as well as Lovenox and Decadron. Today, his saturations were much lower, and he needed BiPAP therapy, 100% FiO2. His blood gases were reasonable. We'll continue to watch him very carefully. The patient may need transfer to the intensive care unit if he continues to struggle. Additional recommendations and suggestions are forthcoming. Prognosis is guarded. Medications are reviewed. Plan dated 06/26/2020. The patient will be dropped down from 80% to 60%. He was outside the window for REM. He did receive vitamin C, vitamin D3, and zinc. In addition, he is on Lovenox, and Decadron. Currently, the patient appears to be relatively stable. He does have periods reason bit agitated and confused. We will continue to foll ow. Continue to try to wean the FiO2. Additional recommendations and suggestions are forthcoming. Labs, and x-rays and medications are all reviewed. Time with Patient: Less than 30
[2020-06-26 20:33] LABS: Glucose,Whole Blood 106 mg/dL (75-99)
[2020-06-26] MEDS: ATORVASTATIN 10 MG TAB PO SCH (20:37)
[2020-06-26] MEDS: OLANZapine 7.5 MG TAB PO SCH (20:38)
[2020-06-27] MEDS: HALOPERIDOL LACTATE 5 MG/ML 1 ML VIAL IM PRN ×2 (00:15→06:06)
[2020-06-27] MEDS: SODIUM CHLORIDE 0.9% 1,000 ML IV SCH ×2 (01:26→13:19)
[2020-06-27 05:54] LABS: Glucose,Whole Blood 81 mg/dL (75-99)
[2020-06-27] MEDS ORDERED: LORazepam 2 MG/ML INJ IV STA (06:19)
[2020-06-27] MEDS: INSULIN ASPART (NovoLOG) 100 UNIT/ML VIAL SQ SCH ×4 (06:29→22:22)
[2020-06-27] MEDS: ALBUTEROL HFA INHALER INHALATION PRN ×2 (07:52→11:54)
[2020-06-27] MEDS: DEXAMETHASONE SOD PHOSPHATE 10 MG/ML 1 ML VIAL IV SCH (08:51)
[2020-06-27] MEDS: CHOLECALCIFEROL 25 MCG (1000 IU) TABLET PO SCH (09:32)
[2020-06-27] MEDS: allopurinoL 100 MG TAB PO SCH (09:32)
[2020-06-27] MEDS: METOPROLOL TARTRATE 25 MG TAB PO SCH ×2 (09:32→22:22)
[2020-06-27] MEDS: ZINC SULFATE 220 MG CAP PO SCH (09:32)
[2020-06-27] MEDS: ASCORBIC ACID 500 MG TAB PO SCH ×2 (09:32→22:22)
[2020-06-27] MEDS: FAMOTIDINE 20 MG TAB PO SCH ×2 (09:32→22:22)
--- NOTE | 2020-06-27 11:20 | P.PN ---
Subjective Progress Note Date: 06/27/20 This is 70-year-old gentleman with past medical history of hypertension, and gastroesophageal reflux disease, CAD, NC, chronic back pain with history of laminectomy and multiple other medical issues presented to the ER with history of fevers ,worsening shortness of breath. Patient had seen his PCP last week on Thursday the and was recommended to go for his covid test. Patient apparently never went for his test. Yesterday completed a tele visit with his PCP, Dr. Encarnacion, referred to the ER. Patient tested positive for Covid infection while in the ER. On admission patient hypoxic with O2 sat of 80% on room air, required nonrebreather to maintain O2 sats in the 90s to 100%. Febrile on admission with temperature 99.9, normal WBC. D-dimer 2.41, sodium 132, BUN 52, creatinine 2.05, ferritin 1556.7 total bili elevated on admission now within normal limits, mildly elevated LFTs, LDH 2411currently 2018, CRP 158.4. Given patient's renal function and respiratory status unable to proceed with CTA of chest or VQ to rule out PE, currently on heparin drip. Chest x-ray reported partially consolidative opacity in the right lung base consistent with acute pneumonic process. Telemetry sinus rhythm with fusion complexes and PACs with left axis deviation. Denies chest pain, palpitations. 06/25/2020 during the night and again this morning patient removing his oxygen, desatting into the high 40s, turning blue, return to 15 L high flow in addition to nonrebreather, O2 sats initially in the high 80s. As the morning progressed, only maintaining O2 sats in the low 80s and transitioned to BiPAP mask. Chest x-ray reported diffuse bilateral patchy infiltrates stable. Denies chest pain, palpitations. Xanax administered for anxiety. Continue to develop more agitation attempting deplorable off mask. lift builder whole placed in room. Eventually patient required IV push Haldol. Patient now maintaining O2 sat of 94% on 100% BiPAP. Afebrile, WBC 14.8. Creatinine improving, 1.28. 06/26/2020 requiring 100% BiPAP to maintain O2 sats in the low 90s. T-max 102.6. WBC 14.9. Telemetry reporting Sinus Tachycardia with heart rates up into the 120s. Echo reported LV function 40-45% . Potassium 5.2, Renal function improving. Blood sugars controlled. Anxious, agitated, combative at times. Sitter remains at bedside. Receiving when necessary Haldol. Staff reports patient was asking for the bar maid, unclear if history of EtOH abuse, with questionable withdrawal. Psychiatry consult in place with recommendations pending. 06/27/2020 cork slabs sawyer hours, significant agitation despite adjustment in med regimen. Received Ativan 1 mg IV push. Agitation lessened. Staff reports carmen ent was choking on water. Spiking fevers, T-max 100.5, labs pending. Taking O2 sats of 90 on 60% BiPAP. Objective - Vital Signs Vital signs: Vital Signs Temp 100.5 F H 06/27/20 09:30 Pulse 90 06/27/20 08:00 Resp 28 H 06/27/20 08:00 BP 152/72 06/27/20 08:00 Pulse Ox 90 L 06/27/20 08:00 Intake & Output 06/26/20 06/27/20 06/27/20 18:59 06:59 18:59 Intake Total 770 550 Output Total 1050 875 Balance -280 -325 Weight 89 kg Intake: Intake, IV Titration 720 550 Amount Sodium Chloride 0.9% 1, 720 550 000 ml @ 50 mls/hr IV . Q20H [facility] Rx#:[id number] Oral 50 Output: Urine 1050 875 Other: Voiding Method Urinal Urinal # Voids 1 - Exam GENERAL: Sitting up in bed, confused ,respiratory effort increased HEENT: Normocephalic. Neck is supple. Pupils reactive. CHEST EXAMINATION: Trachea is central. Symmetrical expansion. Diminished CARDIAC: Normal S1, S2 with no gallops. No murmurs ABDOMEN: Soft. Bowel sounds normal. No organomegaly. No guarding. Extremities: reveal no edema. No clubbing or cyanosis Neurologically: Limited exam -awake, alert, oriented x1. Moving all extremities. Skin: No rash, warm and dry - Labs CBC & Chem 7: 06/26/20 07:52 06/26/20 07:52 Labs: Abnormal Lab Results - Last 24 Hours (Table) 06/26/20 06/26/20 06/26/20 Range/Units 07:52 11:42 16:55 Neutrophils # 10.2 H (1.3-7.7) k/uL Monocytes # 2.1 H (0-1.0) k/uL POC Glucose (mg/dL) 120 H 149 H (75-99) mg/dL 06/26/20 Range/Units 20:30 Neutrophils # (1.3-7.7) k/uL Monocytes # (0-1.0) k/uL POC Glucose (mg/dL) 106 H (75-99) mg/dL Microbiology - Last 24 Hours (Table) 06/21/20 21:30 Blood Culture - Preliminary Blood No Growth after 120 hours 06/21/20 21:10 Blood Culture - Preliminary Blood No Growth after 120 hours Assessment and Plan Assessment: Sepsis secondary to Acute Covid -19 pneumonia Acute hypoxic respiratory failure secondary to the above Acute delirium, acute metabolic encephalopathy secondary to the above, possibly acute hypoxic encephalopathy, medication induced, steroids, benzos, opiates. Possible steroid psychosis. Acute renal failure secondary to the above, improving Gastroesophageal reflux disease Chronic paroxysmal atrial fibrillation Chronic systolic CHF, EF 35-40% Coronary artery disease with history of NC,stent placement Former nicotine dependence Hypertension Plan: Continue on current medication regime ,monitoring and symptomatic treatment. Labs pending. Spiking fevers, portable f/u chest x-ray, blood cultures 2, pro-calcitonin ordered. Maintain strict aspiration precautions, staff advised to maintain head of bed up at greater than 30 .Agitation persists on increased Zyprexa dose and Haldol and did require a dose of Ativan earlier this morning. Continue to monitor. Requested staff to inquire from significant other, regarding if patient has alcohol history. Continue COvid regimen/vitamin supplements, Lovenox.close monitoring of renal function with repeat labs ordered for a.m. maintain supportive care .Prognosis guarded given multiple complex medical issues. The impression and plan of care has been dictated as directed. : I performed a history and examination of this patient, discussed the same with the dictator. I agree with the dictator's note ,documented as a scribe. Any additional findings or plans will be noted.
[2020-06-27 11:41] LABS: Calcium 8.6 mg/dL (8.4-10.2); Potassium 5.6 mmol/L (3.5-5.1)
--- NOTE | 2020-06-27 11:53 | XR ---
EXAMINATION TYPE: XR chest 1V portable DATE OF EXAM: 06/27/2020 COMPARISON: 06/25/2020 HISTORY: Shortness of breath TECHNIQUE: Single frontal view of the chest is obtained. FINDINGS: Diffuse interstitial pattern with patchy bilateral infiltrates. No pleural effusion or pne umothorax. Atherosclerotic change aorta. Heart size normal. No pneumothorax. Arthropathy of the shoul ders. IMPRESSION: Patchy bilateral infiltrate with findings compatible with superimposed interstitial pneu monia
[2020-06-27 12:00] LABS: Basophils % (A) 0 %; Eosinophils % (A) 0 %; HCT 38.6 % (39.0-53.0); HGB 13.4 gm/dL (13.0-17.5); Lymphocytes # (A) 0.1 k/uL (1.0-4.8); Lymphocytes % (A) 1 %; MCH 31.2 pg (25.0-35.0); MCHC 34.6 g/dL (31.0-37.0); Mean Platelet Volume 9.1; Monocytes # (A) 0.4 k/uL (0-1.0); Monocytes % (A) 4 %; Neutrophils # (A) 7.8 k/uL (1.3-7.7); Neutrophils % (A) 94 %; Platelet Count 191 k/uL (150-450); RBC 4.28 m/uL (4.30-5.90); RDW 13.2 % (11.5-15.5); WBC 8.3 k/uL (3.8-10.6)
[2020-06-27 12:06] LABS: Glucose,Whole Blood 117 mg/dL (75-99)
[2020-06-27] MEDS ORDERED: flUPHENAZine 2.5 MG/ML (MDV) 10 ML VIAL IM PRN (12:32)
--- NOTE | 2020-06-27 12:37 | P.PN ---
Progress Note - Text Progress Note Date: 06/27/20 Interval History: Patient was seen today for psychiatric follow-up regarding patient delirium. Patient continues to be on the BiPAP and had a sitter at his side. Patient appeared to be sleeping soundly when underwriter solicitation director entered the room. He continues to be confused and mumbled mainly incoherently initially during conversation. She was difficult to awaken. She claims that he is in the hospital and knows that it is June 2020 and knows his full name. He was only able to follow minimal commands and then dozed off back to sleep. At this time patient denies any suicidal or homical ideations, intent or plan. Patient denies any auditory, visual hallucinations. Nursery care patient states that he was screaming and accusing staff of trying to kill him earlier this morning. Patient apparently choked on water earlier and is now nothing by mouth. Mental Status Exam: General Appearance: Patient appears to be overweight, sleeping soundly in the bed. Patient appears to have fair hygiene and grooming wearing hospital gown. Wearing a BiPAP and has restraints. Behavior: Patient is calmly lying in bed agitated and has restraints. Speech: Patient's speech is nonpressured. Mumbling Mood/Affect: Patient reports their mood is "good", affect is congruent Suicidality/Homicidality: Patient denies having any suicidal or homicidal ideation intent or plan. Perceptions: Patient denies any visual hallucinations and denies any auditory hallucinations Though content/process: Perseverating, [place]. Memory and concentration: AOX2-3, poor attention span. unable to do full cog exam. Judgment and insight: poor/impuslive Assessment Delirium, likely secondary to medications (steroids, BZD, opiates) Plan: -At this time patient DOES NOT meet criteria for inpatient psychiatric admission. -Patient DOES NOT have decision making capacity at this time and is unable to reason through and communicate/appreciate the risks, benefits and alternatives to treatment. -Delirium precautions recommended with patient including - avoiding use of narcotics and BRIDGE REPAIRER sedatives, limit anticholinergic medications when possible, frequent re-orientation, minimize use of restraints, open window shades during the day and close them at night -Would recommend the following medication changes/additions: Can continue with Zyprexa to 7.5 mg daily at bedtime. Discontinued Haldol prn and replaced with Prolixin IM prn for agitation/psychosis. Given the patient has been receiving steroids, benzodiazipines, opiates, these are all likely the contributing factors to patient's psychosis/agitation and consider decreasing these when possible/appropriate given patients medical concerns. -Reviewed EKG. -Communicated plan to patient's nurse -Will continue to follow along -Please contact with any questions.
[2020-06-27] MEDS: RIVAROXABAN 20 MG TAB PO SCH (16:40)
[2020-06-27 16:44] LABS: Glucose,Whole Blood 142 mg/dL (75-99)
--- NOTE | 2020-06-27 17:57 | P.PN ---
Subjective Progress Note Date: 06/27/20 Principal diagnosis: Acute hypoxemic respiratory failure secondary to CoVID 19 pneumonitis This is a 70-year-old gentleman that was seen in the emergency room on June 21. He was sent into the emergency room after being seen by his primary care doctor because of increasing shortness of breath, and concerns that the patient might have COVID 19. In addition to shortness of breath, the patient states he's been having lots of chest congestion, and is been coughing. When he coughs, it is painful in his chest. He has been sick for at least 2 weeks. In addition, he has muscle aches and joint aches, weakness and fatigue, and fever and chills. Currently, he is on a nonrebreather mask. Saturations are 92%. His primary care physician Dr. Vijay Encarnacion. He was not receiving any IV fluids. His primary medical problems include atrial fibrillation, coronary artery disease, hy perlipidemia, hypertension, gastroesophageal reflux disease, and prior myocardial infarction. The patient is a lifelong nontobacco user. White count is 4.9, hemoglobin 13.5, hematocrit 39.5, platelet count 92,000. PTT 61.3. D- dimer 2.41. Sodium 132, potassium 4.8, chloride 105, CO2 18, anion gap 9, BUN and creatinine 52 and 2.05. Calcium 7.6, AST 156, pO2 102, LDH 2018. C- reactive protein 158. I was not able to look at the chest x-ray. There is apparently a partially occlusive opacity at the right lung base consistent with acute pneumonic process. CT angiogram was not performed. Patient was reevaluated today on 06/23/2020, patient is feeling better today compared to how he felt yesterday. Patient is on high flow cannula running at 15 L/m, his O2 saturation is in the mid to high 80s he is on 100% FiO2 basically. His chest x-ray does not seem to be impressive, he does have conso lidative opacity in the right lung base consistent with acute pneumonic process. Left lung is relatively clear. No significant pulmonary congestion. D-dimer is 2.56. Renal profile is not good enough for performing a CT angiogram of the chest, however I will recommend bilateral venous Doppler on this patient just to make sure we were not dealing with thromboembolic process. Again the patient te lls me that his feeling better today compared to how he felt yesterday. Clinically improving. Patient was reevaluated today on 06/24/2020, patient remains on high flow oxygen. He is on 15 L high flow cannula, and his O2 saturations 92% at best. Patient continues to have shortness of breath, intermittent episodes of cough. He has no fever, his vital signs are relatively stable. During my evaluation, patient was constantly coughing. CBC is relatively normal electrolytes are normal BUN is 52 creatinine 1.45. LDH is elevated at 1586. Venous Doppler yesterday was negative. Chest x-ray on admission showed consolidation at the right lung base. I also suspect some consolidation at the left base/retrocardiac area. Progress note dated 06/25/2020. Currently, the patient was on BiPAP and on percent. Earlier today, he desaturated, and the nurses had a hard time getting his saturations back up. We did do a blood gas on the patient. PO2 was 63, pCO2 was 33, pH was 7.44. That was on 100% on the BiPAP. White count 14.8, hemoglobin hematocrit and platelet count all normal. Sodium 136, potassium 4.9, chlorides 107, CO2 20, anion gap 9, BUN 45, creatinine 1.28. Chest x-ray today showed diffuse bilateral patchy infiltrates which are stable. Yesterday, he was on high flow nasal O2 at 15 L/m. Progress note dated 06/26/2020. 70-year-old male, currently on BiPAP, at 16/6 and 80%. His saturations were good, so the FiO2 was dropped from 80% down to 60%. The patient appears to be doing reasonably well, although he did become somewhat tachypnea today when he was being evaluated here. Saturations are 90% on the 60% FiO2. Temperature is 98.1, and blood pressure 173/104. White count 14.9, and hemoglobin, hematocrit, and platelet count are all normal. Sodium 135, potassium 5.2, chlorides 106, CO2 18, anion gap 11, BUN 38, creatinine 1.23. Chest x-ray from June 25, shows bilateral patchy infiltrates. The patient is seen today 06/27/2020 in follow-up on the regular medical floor. He is currently resting fairly comfortably in bed. He is maintaining O2 saturation in the 90s on BiPAP 16/6 and 60% FiO2. 0.9 normal saline at 50 MLS per hour. Chest x-ray continues to show patchy bilateral infiltrates compatible with superimposed interstitial pneumonia. White count 8.3. Hemoglobin 13.4. Sodium 139. Potassium 5.6. Creatinine 1.13. He is continued on dexamethasone, Xarelto, vitamin supplements. Objective - Vital Signs Vital signs: Vital Signs Temp 98.2 F 06/27/20 16:38 Pulse 90 06/27/20 16:38 Resp 26 H 06/27/20 16:38 BP 177/85 06/27/20 16:38 Pulse Ox 89 L 06/27/20 16:38 Intake & Output 06/26/20 06/27/20 06/27/20 18:59 06:59 18:59 Intake Total 770 550 Output Total 1050 875 700 Balance -280 -325 -700 Weight 89 kg 89 kg Intake: Intake, IV Titration 720 550 Amount Sodium Chloride 0.9% 1, 720 550 000 ml @ 50 mls/hr IV . Q20H [facility] Rx#:[id number] Oral 50 Output: Urine 1050 875 700 Other: Voiding Method Urinal Urinal Urinal # Voids 1 - Exam GENERAL EXAM: Alert, 70-year-old gentleman, on BiPAP 16/6 and 60% FiO2, comfortable in no apparent distress. HEAD: Normocephalic. EYES: Normal reaction of pupils, equal size. NOSE: Clear with pink turbinates. THROAT: No erythema or exudates. NECK: No masses, no JVD. CHEST: No chest wall deformity. LUNGS: Equal air entry with crackles in the bilateral posterior bases. CVS: S1 and S2 normal with no audible murmur, regular rhythm. ABDOMEN: No hepatosplenomegaly, normal bowel sounds, no guarding or rigidity. SPINE: No scoliosis or deformity SKIN: No rashes CENTRAL NERVOUS SYSTEM: No focal deficits, tone is normal in all 4 extremities. EXTREMITIES: There is no peripheral edema. No clubbing, no cyanosis. Peripheral pulses are intact. - Labs CBC & Chem 7: 06/27/20 10:18 06/27/20 10:18 Labs: Abnormal Lab Results - Last 24 Hours (Table) 06/26/20 06/27/20 06/27/20 Range/Units 20:30 10:18 10:18 RBC 4.28 L (4.30-5.90) m/uL Hct 38.6 L (39.0-53.0) % Neutrophils # 7.8 H (1.3-7.7) k/uL Lymphocytes # 0.1 L (1.0-4.8) k/uL Potassium 5.6 H (3.5-5.1) mmol/L Chloride 110 H (98-107) mmol/L Carbon Dioxide 19 L (22-30) mmol/L BUN 37 H (9-20) mg/dL POC Glucose (mg/dL) 106 H (75-99) mg/dL 06/27/20 06/27/20 Range/Units 12:05 16:40 RBC (4.30-5.90) m/uL Hct (39.0-53.0) % Neutrophils # (1.3-7.7) k/uL Lymphocytes # (1.0-4.8) k/uL Potassium (3.5-5.1) mmol/L Chloride (98-107) mmol/L Carbon Dioxide (22-30) mmol/L BUN (9-20) mg/dL POC Glucose (mg/dL) 117 H 142 H (75-99) mg/dL Microbiology - Last 24 Hours (Table) 06/26/20 12:44 Blood Culture - Preliminary Blood No Growth after 24 hours 06/21/20 21:30 Blood Culture - Preliminary Blood No Growth after 120 hours 06/21/20 21:10 Blood Culture - Preliminary Blood No Growth after 120 hours Assessment and Plan Assessment: 1 Acute hypoxemic respiratory failure secondary to coma 19 pneumonia/pneumonitis. Outside the window for Remdesivir 2 History of atrial fibrillation 3 Coronary disease with previous stent placement 4 Gastroesophageal reflux disease 6 Hypertension 7 Hyperlipidemia 8 Rheumatic fever, history of 9 History of gout Acute kidney injury Plan: The patient was seen and evaluated by Dr. Olsen Chest x-ray and labs reviewed Remains on Xarelto, Decadron, vitamin supplements Titrate down the FiO2 as tolerated We'll continue to follow I, the cosigning physician, performed a history & physical examination of the patient. Lungs sounds echoes in the bilateral posterior bases. Maintaining good O2 saturations in the 90s on BiPAP 16/6 and 60% FiO2. I discussed the assessment and plan of care with my nurse practitioner, Kathy Mcgill. I attest to the above note as dictated by her.
[2020-06-27 20:12] LABS: Glucose,Whole Blood 134 mg/dL (75-99)
[2020-06-27] MEDS: ATORVASTATIN 10 MG TAB PO SCH (22:22)
[2020-06-27] MEDS: OLANZapine 7.5 MG TAB PO SCH (22:23)
[2020-06-27] MEDS ORDERED: OLANZapine 10 MG VIAL IM STA (23:07)
[2020-06-28 06:19] LABS: Glucose,Whole Blood 118 mg/dL (75-99)
[2020-06-28] MEDS: INSULIN ASPART (NovoLOG) 100 UNIT/ML VIAL SQ SCH ×4 (06:27→18:32)
[2020-06-28] MEDS: ALBUTEROL HFA INHALER INHALATION PRN ×4 (08:08→19:40)
[2020-06-28] MEDS: CHOLECALCIFEROL 25 MCG (1000 IU) TABLET PO SCH (09:11)
[2020-06-28] MEDS: ZINC SULFATE 220 MG CAP PO SCH (09:11)
[2020-06-28] MEDS: METOPROLOL TARTRATE 25 MG TAB PO SCH ×2 (09:11→22:06)
[2020-06-28] MEDS: FAMOTIDINE 20 MG TAB PO SCH ×2 (09:11→22:06)
[2020-06-28] MEDS: allopurinoL 100 MG TAB PO SCH (09:11)
[2020-06-28] MEDS: ASCORBIC ACID 500 MG TAB PO SCH ×2 (09:11→22:06)
[2020-06-28] MEDS: DEXAMETHASONE SOD PHOSPHATE 10 MG/ML 1 ML VIAL IV SCH (09:14)
[2020-06-28] MEDS ORDERED: ENOXAPARIN 40 MG/0.4 ML SYRINGE SQ SCH (12:00)
[2020-06-28 12:17] LABS: Glucose,Whole Blood 110 mg/dL (75-99)
[2020-06-28] MEDS ORDERED: flUPHENAZine 2.5 MG/ML (MDV) 10 ML VIAL IM PRN (12:59)
--- NOTE | 2020-06-28 13:05 | P.PN ---
Progress Note - Text Progress Note Date: 06/28/20 Interval History: Patient was seen today for psychiatric follow-up regarding patient delirium and agitation. Patient continues to be on the BiPAP and was in restraints. Patient apparently had a difficult night last night and was agitated, pulling at restraints and more confused. Patient had received both a Prolixin IM and also a Zyprexa IM prn dose. Patient appeared to be awake and was mumbling to himself. He was attempting to text his girlfriend with his cell phone and was agreeable to speak to securities underwriter. He appeared to be more awake today and more appropriate during the conversation. He continues to mumble at times during conversation however was following more commands today. he claims that he is in the hospital in [facility] and knows that it is June 2020 and knows his full name. At this time patient denies any suicidal or homical ideations, intent or plan. Patient denies any auditory, visual hallucinations. Patient continues to be on nothing by mouth. Mental Status Exam: General Appearance: Patient appears to be overweight, more alert and awake today. Following more commands. Patient appears to have fair hygiene and grooming wearing hospital gown. Wearing a BiPAP and has restraints. Behavior: Patient is calmly lying in bed agitated and has restraints. Speech: Patient's speech is nonpressured. Mumbling Mood/Affect: Patient reports their mood is "ok", affect is congruent Suicidality/Homicidality: Patient denies having any suicidal or homicidal ideation intent or plan. Perceptions: Patient denies any visual hallucinations and denies any auditory hallucinations Though content/process: Perseverating, [place]. More logical today Memory and concentration: AOX3, improving attention span. Judgment and insight: poor/impuslive, improving mildly Assessment Delirium, likely secondary to medications (steroids, BZD, opiates) Plan: -At this time patient DOES NOT meet criteria for inpatient psychiatric admission. -Patient DOES NOT have decision making capacity at this time and is unable to reason through and communicate/appreciate the risks, benefits and alternatives to treatment. -Delirium precautions recommended with patient including - avoiding use of narcotics and UROLOGIC SURGEON sedatives, limit anticholinergic medications when possible, frequent re-orientation, minimize use of restraints, open window shades during the day and close them at night -Would recommend the following medication changes/additions: Can continue with Zyprexa to 7.5 mg daily at bedtime. Increased Prolixin IM 5mg q6hr prn for agitation/psychosis. Given the patient has been receiving steroids, benzodiazipines, opiates, these are all likely the contributing factors to patient's psychosis/agitation and consider decreasing these when possible/appropriate given patients medical concerns. If patient requires an extra PRN dose for agitation then its ok to get one dose of zyprexa IM however DO NOT given IM/PO ATIVAN within 4 hrs of this as it increases risk for respiratory sedation. -Communicated plan to patient's nurse -Will continue to follow along -Please contact with any questions.
[2020-06-28 13:46] LABS: INR 1.2 (<1.2); Prothrombin Time 12.6 sec (9.0-12.0)
[2020-06-28] MEDS ORDERED: LIDOCAINE 1% INJ 10MG/ML (20 ML MDV) ONE (13:51)
[2020-06-28] MEDS ORDERED: LIDOCAINE 1% INJ 10MG/ML (20 ML MDV) SQ ONE (14:12)
--- NOTE | 2020-06-28 14:52 | IR ---
PICC LINE PLACEMENT: HISTORY: TPN PROCEDURE: Ultrasound guidance of PICC line placement. REEL SYSTEM OPERATOR: Dr. Baumann. COMPLICATIONS: None ANESTHESIA: 1. 1% Lidocaine locally. FINDINGS/TECHNIQUE: The procedure was explained to the patient. The risks, complications, benefits and alternatives were discussed and any questions were answered. Informed consent was obtained. The patient was placed supine on the fluoroscopic table and prepped and draped in the usual sterile fash ion. Utilizing a 21 gauge needle and sonographic guidance, access in the left basilic vein was achi eved and there is placement of a 0.018 guidewire. The vein is patent. A 5-F. sheath was placed over the guidewire. The guidewire and dilator were removed and a 5-F. Double lumen PICC line was placed through the sheath with the chest x-ray confirming the tip at the level of the SVC. The sheath was r emoved, the catheter was flushed and sutured into position. The patient was stable throughout the pr ocedure and remained stable upon discharge from the Department of Radiology. The vein puncture was patent under ultrasound. A doss scale image was obtained to document patency of the vein punctured. All elements of the maximal barrier technique were utilized. IMPRESSION: 1. Successful PICC line placement under ultrasound performed bedside.
--- NOTE | 2020-06-28 14:56 | XR ---
EXAMINATION TYPE: XR chest 1V confirm line [facility] DATE OF EXAM: 06/28/2020 COMPARISON: 06/27/2020 HISTORY: confirm line placement TECHNIQUE: Single frontal view of the chest is obtained. FINDINGS: Coarsened interstitium with basilar segmental consolidation. Left-sided PICC line noted. N o pneumothorax. Atherosclerotic change aorta. No sizable pleural effusion. IMPRESSION: Diffuse interstitial infiltrate stable. Left-sided PICC line seen with the tip at the le jeff of the SVC.
--- NOTE | 2020-06-28 15:02 | P.PN ---
Subjective Progress Note Date: 06/28/20 Principal diagnosis: Acute hypoxemic respiratory failure secondary to CoVID 19 pneumonitis This is a 70-year-old gentleman that was seen in the emergency room on June 21. He was sent into the emergency room after being seen by his primary care doctor because of increasing shortness of breath, and concerns that the patient might have COVID 19. In addition to shortness of breath, the patient states he's been having lots of chest congestion, and is been coughing. When he coughs, it is painful in his chest. He has been sick for at least 2 weeks. In addition, he has muscle aches and joint aches, weakness and fatigue, and fever and chills. Currently, he is on a nonrebreather mask. Saturations are 92%. His primary care physician Dr. Vijay Encarnacion. He was not receiving any IV fluids. His primary medical problems include atrial fibrillation, coronary artery disease, hy perlipidemia, hypertension, gastroesophageal reflux disease, and prior myocardial infarction. The patient is a lifelong nontobacco user. White count is 4.9, hemoglobin 13.5, hematocrit 39.5, platelet count 92,000. PTT 61.3. D- dimer 2.41. Sodium 132, potassium 4.8, chloride 105, CO2 18, anion gap 9, BUN and creatinine 52 and 2.05. Calcium 7.6, AST 156, pO2 102, LDH 2018. C- reactive protein 158. I was not able to look at the chest x-ray. There is apparently a partially occlusive opacity at the right lung base consistent with acute pneumonic process. CT angiogram was not performed. Patient was reevaluated today on 06/23/2020, patient is feeling better today compared to how he felt yesterday. Patient is on high flow cannula running at 15 L/m, his O2 saturation is in the mid to high 80s he is on 100% FiO2 basically. His chest x-ray does not seem to be impressive, he does have conso lidative opacity in the right lung base consistent with acute pneumonic process. Left lung is relatively clear. No significant pulmonary congestion. D-dimer is 2.56. Renal profile is not good enough for performing a CT angiogram of the chest, however I will recommend bilateral venous Doppler on this patient just to make sure we were not dealing with thromboembolic process. Again the patient te lls me that his feeling better today compared to how he felt yesterday. Clinically improving. Patient was reevaluated today on 06/24/2020, patient remains on high flow oxygen. He is on 15 L high flow cannula, and his O2 saturations 92% at best. Patient continues to have shortness of breath, intermittent episodes of cough. He has no fever, his vital signs are relatively stable. During my evaluation, patient was constantly coughing. CBC is relatively normal electrolytes are normal BUN is 52 creatinine 1.45. LDH is elevated at 1586. Venous Doppler yesterday was negative. Chest x-ray on admission showed consolidation at the right lung base. I also suspect some consolidation at the left base/retrocardiac area. Progress note dated 06/25/2020. Currently, the patient was on BiPAP and on percent. Earlier today, he desaturated, and the nurses had a hard time getting his saturations back up. We did do a blood gas on the patient. PO2 was 63, pCO2 was 33, pH was 7.44. That was on 100% on the BiPAP. White count 14.8, hemoglobin hematocrit and platelet count all normal. Sodium 136, potassium 4.9, chlorides 107, CO2 20, anion gap 9, BUN 45, creatinine 1.28. Chest x-ray today showed diffuse bilateral patchy infiltrates which are stable. Yesterday, he was on high flow nasal O2 at 15 L/m. Progress note dated 06/26/2020. 70-year-old male, currently on BiPAP, at 16/6 and 80%. His saturations were good, so the FiO2 was dropped from 80% down to 60%. The patient appears to be doing reasonably well, although he did become somewhat tachypnea today when he was being evaluated here. Saturations are 90% on the 60% FiO2. Temperature is 98.1, and blood pressure 173/104. White count 14.9, and hemoglobin, hematocrit, and platelet count are all normal. Sodium 135, potassium 5.2, chlorides 106, CO2 18, anion gap 11, BUN 38, creatinine 1.23. Chest x-ray from June 25, shows bilateral patchy infiltrates. The patient is seen today 06/27/2020 in follow-up on the regular medical floor. He is currently resting fairly comfortably in bed. He is maintaining O2 saturation in the 90s on BiPAP 16/6 and 60% FiO2. 0.9 normal saline at 50 MLS per hour. Chest x-ray continues to show patchy bilateral infiltrates compatible with superimposed interstitial pneumonia. White count 8.3. Hemoglobin 13.4. Sodium 139. Potassium 5.6. Creatinine 1.13. He is continued on dexamethasone, Xarelto, vitamin supplements. The patient is seen today 06/28/2020 follow-up on the selective care unit. He is currently sitting up in bed. Remains on BiPAP 16/6 and 100% FiO2 maintaining O2 saturation the high 80s low 90s. He is 0.9 normal saline at 50 MLS per hour. He is now on Lovenox, dexamethasone, vitamin supplements. PICC line placed today. Objective - Vital Signs Vital signs: Vital Signs Temp 97.5 F L 06/28/20 11:51 Pulse 90 06/28/20 11:51 Resp 24 06/28/20 11:51 BP 130/83 06/28/20 11:51 Pulse Ox 93 L 06/28/20 11:51 Intake & Output 06/27/20 06/28/20 06/28/20 18:59 06:59 18:59 Output Total 700 800 700 Balance -700 -800 -700 Weight 89 kg 88.5 kg 88.5 kg Output: Urine 700 800 700 Other: Voiding Method Urinal Urinal Urinal - Exam GENERAL EXAM: Alert, 70-year-old gentleman, on BiPAP 16/6 and 100% FiO2, comfortable in no apparent distress. HEAD: Normocephalic. EYES: Normal reaction of pupils, equal size. NOSE: Clear with pink turbinates. THROAT: No erythema or exudates. NECK: No masses, no JVD. CHEST: No chest wall deformity. LUNGS: Equal air entry with crackles in the bilateral posterior bases. CVS: S1 and S2 normal with no audible murmur, regular rhythm. ABDOMEN: No hepatosplenomegaly, normal bowel sounds, no guarding or rigidity. SPINE: No scoliosis or deformity SKIN: No rashes CENTRAL NERVOUS SYSTEM: No focal deficits, tone is normal in all 4 extremities. EXTREMITIES: There is no peripheral edema. No clubbing, no cyanosis. Peripheral pulses are intact. - Labs CBC & Chem 7: 06/27/20 10:18 06/27/20 10:18 Labs: Abnormal Lab Results - Last 24 Hours (Table) 06/27/20 06/27/20 06/27/20 Range/Units 13:05 16:40 20:10 PT (9.0-12.0) sec INR (<1.2) POC Glucose (mg/dL) 142 H 134 H (75-99) mg/dL Procalcitonin 0.40 H (0.02-0.09) ng/mL 06/28/20 06/28/20 06/28/20 Range/Units 06:12 12:15 13:25 PT 12.6 H (9.0-12.0) sec INR 1.2 H (<1.2) POC Glucose (mg/dL) 118 H 110 H (75-99) mg/dL Procalcitonin (0.02-0.09) ng/mL Microbiology - Last 24 Hours (Table) 06/21/20 21:30 Blood Culture - Final Blood No Growth after 144 hours 06/21/20 21:10 Blood Culture - Final Blood No Growth after 144 hours 06/26/20 12:44 Blood Culture - Preliminary Blood No Growth after 24 hours Assessment and Plan Assessment: 1 Acute hypoxemic respiratory failure secondary to CoVID 19 pneumonia/pneu monitis. Outside the window for Remdesivir 2 History of atrial fibrillation 3 Coronary disease with previous stent placement 4 Gastroesophageal reflux disease 6 Hypertension 7 Hyperlipidemia 8 Rheumatic fever, history of 9 History of gout 10 Acute kidney injury Plan: The patient was seen and evaluated by Dr. Olsen Remains on Lovenox, Decadron, vitamin supplements Titrate down the FiO2 as tolerated PICC line placed today We'll continue to follow I, the cosigning physician, performed a history & physical examination of the patient. Lungs sounds crackles in the bilateral posterior bases. Maintaining good O2 saturations in the 90s on BiPAP 16/6 and 100% FiO2. I discussed the assessment and plan of care with my nurse practitioner, Kathy Mcgill. I attest to the above note as dictated by her.
[2020-06-28 15:09] LABS: Ionized Calcium 5.2 mg/dL (4.5-5.3)
[2020-06-28 15:16] LABS: Albumin 2.9 g/dL (3.5-5.0); Calcium 8.6 mg/dL (8.4-10.2); Magnesium 2.5 mg/dL (1.6-2.3); Phosphorus 4.3 mg/dL (2.5-4.5); Potassium 5.4 mmol/L (3.5-5.1); Total Bilirubin 1.4 mg/dL (0.2-1.3); Total Protein 5.9 g/dL (6.3-8.2)
[2020-06-28] MEDS: SODIUM CHLORIDE 0.9% 1,000 ML IV SCH (16:52)
--- NOTE | 2020-06-28 16:56 | P.PN ---
Subjective Progress Note Date: 06/28/20 This is 70-year-old gentleman with past medical history of hypertension, and gastroesophageal reflux disease, CAD, OH, chronic back pain with history of laminectomy and multiple other medical issues presented to the ER with history of fevers ,worsening shortness of breath. Patient had seen his PCP last week on Thursday the and was recommended to go for his covid test. Patient apparently never went for his test. Yesterday completed a tele visit with his PCP, Dr. Encarnacion, referred to the ER. Patient tested positive for Covid infection while in the ER. On admission patient hypoxic with O2 sat of 80% on room air, required nonrebreather to maintain O2 sats in the 90s to 100%. Febrile on admission with temperature 99.9, normal WBC. D-dimer 2.41, sodium 132, BUN 52, creatinine 2.05, ferritin 1556.7 total bili elevated on admission now within normal limits, mildly elevated LFTs, LDH 2411currently 2018, CRP 158.4. Given patient's renal function and respiratory status unable to proceed with CTA of chest or VQ to rule out PE, currently on heparin drip. Chest x-ray reported partially consolidative opacity in the right lung base consistent with acute pneumonic process. Telemetry sinus rhythm with fusion complexes and PACs with left axis deviation. Denies chest pain, palpitations. 06/25/2020 during the night and again this morning patient removing his oxygen, desatting into the high 40s, turning blue, return to 15 L high flow in addition to nonrebreather, O2 sats initially in the high 80s. As the morning progressed, only maintaining O2 sats in the low 80s and transitioned to BiPAP mask. Chest x-ray reported diffuse bilateral patchy infiltrates stable. Denies chest pain, palpitations. Xanax administered for anxiety. Continue to develop more agitation attempting deplorable off mask. automatic dry starch operator placed in room. Eventually patient required IV push Haldol. Patient now maintaining O2 sat of 94% on 100% BiPAP. Afebrile, WBC 14.8. Creatinine improving, 1.28. 06/26/2020 requiring 100% BiPAP to maintain O2 sats in the low 90s. T-max 102.6. WBC 14.9. Telemetry reporting Sinus Tachycardia with heart rates up into the 120s. Echo reported LV function 40-45% . Potassium 5.2, Renal function improving. Blood sugars controlled. Anxious, agitated, combative at times. Sitter remains at bedside. Receiving when necessary Haldol. Staff reports patient was asking for the bar maid, unclear if history of EtOH abuse, with questionable withdrawal. Psychiatry consult in place with recommendations pending. 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 Received Ativan 1 mg IV push. Agitation lessened. Staff reports carmen ent was choking on water. Spiking fevers, T-max 100.5, labs pending. Taking O2 sats of 90 on 60% BiPAP. 06/28/2020 rough night with increased agitation and confusion despite Prolixin and Zyprexa. Reevaluated by psychiatry this morning with medication changes noted and appreciated. Unable to wean from 100% BiPAP, maintaining O2 sats of mid 80s to low 90s. Speech therapy unable to conduct swallow evaluation as patient unable to tolerate being off of BiPAP. Poor oral intake, renal function worsening. Sitter remains at bedside. Afebrile. Objective - Vital Signs Vital signs: Vital Signs Temp 97.5 F L 06/28/20 11:51 Pulse 90 06/28/20 11:51 Resp 24 06/28/20 11:51 BP 130/83 06/28/20 11:51 Pulse Ox 93 L 06/28/20 11:51 Intake & Output 06/27/20 06/28/20 06/28/20 18:59 06:59 18:59 Output Total 700 800 700 Balance -700 -800 -700 Weight 89 kg 88.5 kg 88.5 kg Output: Urine 700 800 700 Other: Voiding Method Urinal Urinal Urinal - Exam GENERAL: Sitting up in bed, confusion mildly improved ,respiratory effort increased HEENT: Normocephalic. Neck is supple. Pupils reactive. CHEST EXAMINATION: Symmetrical expansion. Diminished, bibasilar crackles CARDIAC: Normal S1, S2 with no gallops. No murmurs ABDOMEN: Soft. Bowel sounds normal. No organomegaly. No guarding. Extremities: reveal no edema. No clubbing or cyanosis Neurologically: Limited exam -awake, alert, oriented x2. Moving all extremities. Skin: No rash, warm and dry - Labs CBC & Chem 7: 06/27/20 10:18 06/28/20 13:25 Labs: Abnormal Lab Results - Last 24 Hours (Table) 06/27/20 06/27/20 06/27/20 Range/Units 13:05 16:40 20:10 PT (9.0-12.0) sec INR (<1.2) Potassium (3.5-5.1) mmol/L Chloride (98-107) mmol/L Carbon Dioxide (22-30) mmol/L BUN (9-20) mg/dL Glucose (74-99) mg/dL POC Glucose (mg/dL) 142 H 134 H (75-99) mg/dL Magnesium (1.6-2.3) mg/dL Total Bilirubin (0.2-1.3) mg/dL ALT (4-49) U/L Total Protein (6.3-8.2) g/dL Albumin (3.5-5.0) g/dL Procalcitonin 0.40 H (0.02-0.09) ng/mL 06/28/20 06/28/20 06/28/20 Range/Units 06:12 12:15 13:25 PT 12.6 H (9.0-12.0) sec INR 1.2 H (<1.2) Potassium (3.5-5.1) mmol/L Chloride (98-107) mmol/L Carbon Dioxide (22-30) mmol/L BUN (9-20) mg/dL Glucose (74-99) mg/dL POC Glucose (mg/dL) 118 H 110 H (75-99) mg/dL Magnesium (1.6-2.3) mg/dL Total Bilirubin (0.2-1.3) mg/dL ALT (4-49) U/L Total Protein (6.3-8.2) g/dL Albumin (3.5-5.0) g/dL Procalcitonin (0.02-0.09) ng/mL 06/28/20 Range/Units 13:25 PT (9.0-12.0) sec INR (<1.2) Potassium 5.4 H (3.5-5.1) mmol/L Chloride 114 H (98-107) mmol/L Carbon Dioxide 20 L (22-30) mmol/L BUN 45 H (9-20) mg/dL Glucose 125 H (74-99) mg/dL POC Glucose (mg/dL) (75-99) mg/dL Magnesium 2.5 H (1.6-2.3) mg/dL Total Bilirubin 1.4 H (0.2-1.3) mg/dL ALT 69 H (4-49) U/L Total Protein 5.9 L (6.3-8.2) g/dL Albumin 2.9 L (3.5-5.0) g/dL Procalcitonin (0.02-0.09) ng/mL Microbiology - Last 24 Hours (Table) 06/27/20 13:05 Blood Culture - Preliminary Blood No Growth after 24 hours 06/26/20 12:44 Blood Culture - Preliminary Blood No Growth after 48 hours 06/21/20 21:30 Blood Culture - Final Blood No Growth after 144 hours 06/21/20 21:10 Blood Culture - Final Blood No Growth after 144 hours Assessment and Plan Assessment: Sepsis secondary to Acute Covid -19 pneumonia Acute hypoxic respiratory failure secondary to the above Acute delirium, acute metabolic encephalopathy secondary to the above, possibly acute hypoxic encephalopathy, medication induced, steroids, benzos, opiates. Possible steroid psychosis. Acute renal failure secondary to the above, improving Gastroesophageal reflux disease Chronic paroxysmal atrial fibrillation Chronic systolic CHF, EF 35-40% Coronary artery disease with history of OH,stent placement Former nicotine dependence Hypertension Plan: Continue on current medication regime ,monitoring and symptomatic treatment. Delirium precautions/management as per psychiatry. PICC line ordered for initiation of TPN/PPN. Blood cultures finalizing. Strict aspiration precautions. Continue COvid regimen/vitamin supplements, Lovenox.FiO2 titration as per pulmonary .close monitoring of renal function with repeat labs ordered for a.m. maintain supportive care .Prognosis guarded given multiple complex m edical issues. The impression and plan of care has been dictated as directed. : I performed a history and examination of this patient, discussed the same with the dictator. I agree with the dictator's note ,documented as a scribe. Any additional findings or plans will be noted.
[2020-06-28] MEDS ORDERED: [UNRECOGNIZED DRUG - REMARK] IV SCH ×6 (17:00)
[2020-06-28 17:13] LABS: Glucose,Whole Blood 130 mg/dL (75-99)
[2020-06-28] MEDS: ENOXAPARIN 100 MG/ML SYRINGE SQ SCH (20:29)
[2020-06-28] MEDS: OLANZapine 7.5 MG TAB PO SCH (22:06)
[2020-06-28] MEDS: ATORVASTATIN 10 MG TAB PO SCH (22:06)
[2020-06-29 00:06] LABS: Glucose,Whole Blood 161 mg/dL (75-99)
[2020-06-29] MEDS: INSULIN ASPART (NovoLOG) 100 UNIT/ML VIAL SQ SCH ×4 (00:14→17:58)
[2020-06-29] MEDS: ACETAMINOPHEN TAB 325 MG TAB PO PRN (04:58)
[2020-06-29 06:56] LABS: Glucose,Whole Blood 116 mg/dL (75-99)
[2020-06-29 07:12] LABS: Calcium 8.6 mg/dL (8.4-10.2); Magnesium 2.4 mg/dL (1.6-2.3); Phosphorus 4.3 mg/dL (2.5-4.5); Potassium 5.1 mmol/L (3.5-5.1)
[2020-06-29] MEDS: ALBUTEROL HFA INHALER INHALATION PRN ×3 (08:58→17:46)
[2020-06-29] MEDS: DEXAMETHASONE SOD PHOSPHATE 10 MG/ML 1 ML VIAL IV SCH (09:33)
[2020-06-29] MEDS: ENOXAPARIN 100 MG/ML SYRINGE SQ SCH ×2 (09:33→20:17)
[2020-06-29] MEDS: ASCORBIC ACID 500 MG TAB PO SCH ×2 (09:33→20:17)
[2020-06-29] MEDS: FAT EMULSION 20% 250 ML in EMPTY BAG 1 BAG IV SCH (09:33)
[2020-06-29] MEDS: CHOLECALCIFEROL 25 MCG (1000 IU) TABLET PO SCH (09:33)
[2020-06-29] MEDS: FAMOTIDINE 20 MG TAB PO SCH ×2 (09:34→20:16)
[2020-06-29] MEDS: METOPROLOL TARTRATE 25 MG TAB PO SCH ×2 (09:34→20:14)
[2020-06-29] MEDS: allopurinoL 100 MG TAB PO SCH (09:34)
[2020-06-29] MEDS: ZINC SULFATE 220 MG CAP PO SCH (09:34)
--- NOTE | 2020-06-29 11:06 | P.PN ---
Progress Note - Text Progress Note Date: 06/29/20 Interval History: Patient was seen today for psychiatric follow-up regarding patient delirium and agitation. Patient continues to be on the BiPAP and was in restraints. Patient apparently had a better night last night and was less agitated and less confused according to patient's nurse. Patient did however receive a Prolixin IM 5 mg dose last night according to MAR. patient continues to be on an by mouth and did not receive his Zyprexa by mouth at bedtime. Patient was sleeping soundly when technical report writer went to go evaluate patient. Mental Status Exam: General Appearance: Patient appears to be overweight, sleeping soundly. Patient appears to have fair hygiene and grooming wearing hospital gown. Wearing a BiPAP and has restraints. Behavior: Patient is calmly lying in bed agitated and has restraints. Speech: Unable to assess Mood/Affect: Unable to assess Suicidality/Homicidality: Unable to assess Perceptions: Unable to assess Though content/process: Unable to assess Memory and concentration: Unable to assess Judgment and insight: Unable to assess Assessment Delirium, likely secondary to medications (steroids, BZD, opiates), improving Plan: -At this time patient DOES NOT meet criteria for inpatient psychiatric admission. -Patient DOES NOT have decision making capacity at this time and is unable to reason through and communicate/appreciate the risks, benefits and alternatives to treatment. -Delirium precautions recommended with patient including - avoiding use of narcotics and DIRECTOR SOFTWARE DEVELOPMENT sedatives, limit anticholinergic medications when possible, frequent re-orientation, minimize use of restraints, open window shades during the day and close them at night -Would recommend the following medication changes/additions: Can continue with Zyprexa to 7.5 mg daily at bedtime. continue with Prolixin IM 5mg q6hr prn for agitation/psychosis. Given the patient has been receiving steroids, benzodiazipines, opiates, these are all likely the contributing factors to patient's psychosis/agitation and consider decreasing these when possible/appropriate given patients medical concerns. -If patient requires an extra PRN dose for agitation then its ok to get one dose of zyprexa IM however DO NOT given IM/PO ATIVAN within 4 hrs of this as it increases risk for respiratory sedation. -Communicated plan to patient's nurse -Will follow along if needed/requested. -Please contact with any questions.
[2020-06-29 12:19] LABS: Glucose,Whole Blood 147 mg/dL (75-99)
[2020-06-29] MEDS: SODIUM CHLORIDE 0.9% 1,000 ML IV SCH (13:21)
--- NOTE | 2020-06-29 14:13 | P.PN ---
Subjective Progress Note Date: 06/29/20 This is 70-year-old gentleman with past medical history of hypertension, and gastroesophageal reflux disease, CAD, [place], chronic back pain with history of laminectomy and multiple other medical issues presented to the ER with history of fevers ,worsening shortness of breath. Patient had seen his PCP last week on Thursday the and was recommended to go for his covid test. Patient apparently never went for his test. Yesterday completed a tele visit with his PCP, Dr. Encarnacion, referred to the ER. Patient tested positive for Covid infection while in the ER. On admission patient hypoxic with O2 sat of 80% on room air, required nonrebreather to maintain O2 sats in the 90s to 100%. Febrile on admission with temperature 99.9, normal WBC. D-dimer 2.41, sodium 132, BUN 52, creatinine 2.05, ferritin 1556.7 total bili elevated on admission now within normal limits, mildly elevated LFTs, LDH 2411currently 2018, CRP 158.4. Given patient's renal function and respiratory status unable to proceed with CTA of chest or VQ to rule out PE, currently on heparin drip. Chest x-ray reported partially consolidative opacity in the right lung base consistent with acute pneumonic process. Telemetry sinus rhythm with fusion complexes and PACs with left axis deviation. Denies chest pain, palpitations. 06/25/2020 during the night and again this morning patient removing his oxygen, desatting into the high 40s, turning blue, return to 15 L high flow in addition to nonrebreather, O2 sats initially in the high 80s. As the morning progressed, only maintaining O2 sats in the low 80s and transitioned to BiPAP mask. Chest x-ray reported diffuse bilateral patchy infiltrates stable. Denies chest pain, palpitations. Xanax administered for anxiety. Continue to develop more agitation attempting deplorable off mask. evening sitter placed in room. Eventually patient required IV push Haldol. Patient now maintaining O2 sat of 94% on 100% BiPAP. Afebrile, WBC 14.8. Creatinine improving, 1.28. 06/26/2020 requiring 100% BiPAP to maintain O2 sats in the low 90s. T-max 102.6. WBC 14.9. Telemetry reporting Sinus Tachycardia with heart rates up into the 120s. Echo reported LV function 40-45% . Potassium 5.2, Renal function improving. Blood sugars controlled. Anxious, agitated, combative at times. Sitter remains at bedside. Receiving when necessary Haldol. Staff reports patient was asking for the bar maid, unclear if history of EtOH abuse, with questionable withdrawal. Psychiatry consult in place with recommendations pending. 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 Received Ativan 1 mg IV push. Agitation lessened. Staff reports carmen ent was choking on water. Spiking fevers, T-max 100.5, labs pending. Taking O2 sats of 90 on 60% BiPAP. 06/28/2020 rough night with increased agitation and confusion despite Prolixin and Zyprexa. Reevaluated by psychiatry this morning with medication changes noted and appreciated. Unable to wean from 100% BiPAP, maintaining O2 sats of mid 80s to low 90s. Speech therapy unable to conduct swallow evaluation as patient unable to tolerate being off of BiPAP. Poor oral intake, renal function worsening. Sitter remains at bedside. Afebrile. 06/29/2020 100% BiPAP, maintaining O2 sats in the low 90s. Had a better night with less agitation, received Prolixin. Less confused this morning. Asking for ice chip. Complains of chronic back pain. Discussed CODE STATUS and patient wishes to remain a full code. Denies any chest pain, palpitations. BUN 43, creatinine 1.18. Received PICC line with TPN initiated yesterday. Blood sugars controlled. Objective - Vital Signs Vital signs: Vital Signs Temp 98.9 F 06/29/20 08:15 Pulse 69 06/29/20 08:15 Resp 19 06/29/20 08:15 BP 146/90 06/29/20 08:15 Pulse Ox 92 L 06/29/20 08:15 Intake & Output 06/28/20 06/29/20 06/29/20 18:59 06:59 18:59 Intake Total 320 50 Output Total 1400 900 Balance -1400 320 -850 Weight 88.5 kg 87 kg Intake: Intake, IV Titration 320 50 Amount Mvi, Adult No.4 with Vit 120 K 10 ml Trace (Conc-1Ml/ Dose) 1 ml Sodium Acetate 28 meq Sodium Phosphate 6 mmol Calcium Gluconate 1 gm In Amino Acid 5%- D15w 1,000 ml @ 30 mls/hr IV .Q24H [facility] Rx#: [id number] Sodium Chloride 0.9% 1, 200 50 000 ml @ 50 mls/hr IV . Q20H [facility] Rx#:[id number] Output: Urine 1400 900 Other: Voiding Method Urinal Urinal Indwelling Catheter # Voids 950 - Exam GENERAL: Sitting up in bed, confusion improved HEENT: Normocephalic. Neck is supple. Pupils reactive. CHEST EXAMINATION: Symmetrical expansion. Diminished, bibasilar crackles CARDIAC: Normal S1, S2 with no gallops. No murmurs ABDOMEN: Soft. Bowel sounds normal. No guarding. Extremities: reveal no edema. No clubbing or cyanosis Neurologically: Limited exam -awake, alert, oriented x2. Moving all extremitie s. Skin: No rash, warm and dry - Labs CBC & Chem 7: 06/27/20 10:18 06/29/20 06:09 Labs: Abnormal Lab Results - Last 24 Hours (Table) 06/28/20 06/28/20 06/29/20 Range/Units 13:25 17:11 00:05 Potassium 5.4 H (3.5-5.1) mmol/L Chloride 114 H (98-107) mmol/L Carbon Dioxide 20 L (22-30) mmol/L BUN 45 H (9-20) mg/dL Glucose 125 H (74-99) mg/dL POC Glucose (mg/dL) 130 H 161 H (75-99) mg/dL Magnesium 2.5 H (1.6-2.3) mg/dL Total Bilirubin 1.4 H (0.2-1.3) mg/dL ALT 69 H (4-49) U/L Total Protein 5.9 L (6.3-8.2) g/dL Albumin 2.9 L (3.5-5.0) g/dL 06/29/20 06/29/20 06/29/20 Range/Units 06:04 06:09 12:17 Potassium (3.5-5.1) mmol/L Chloride 114 H (98-107) mmol/L Carbon Dioxide 20 L (22-30) mmol/L BUN 43 H (9-20) mg/dL Glucose 125 H (74-99) mg/dL POC Glucose (mg/dL) 116 H 147 H (75-99) mg/dL Magnesium 2.4 H (1.6-2.3) mg/dL Total Bilirubin (0.2-1.3) mg/dL ALT (4-49) U/L Total Protein (6.3-8.2) g/dL Albumin (3.5-5.0) g/dL Microbiology - Last 24 Hours (Table) 06/27/20 14:31 Blood Culture - Preliminary Blood No Growth after 24 hours 06/27/20 13:05 Blood Culture - Preliminary Blood No Growth after 24 hours 06/26/20 12:44 Blood Culture - Preliminary Blood No Growth after 48 hours Assessment and Plan Assessment: Sepsis secondary to Acute Covid -19 pneumonia Acute hypoxic respiratory failure secondary to the above Acute delirium, acute metabolic encephalopathy secondary to the above, possibly acute hypoxic encephalopathy, medication induced, steroids, benzos, opiates. Possible steroid psychosis. Acute renal failure secondary to the above, improving Gastroesophageal reflux disease Chronic paroxysmal atrial fibrillation Chronic systolic CHF, EF 35-40% Coronary artery disease with history of TX,stent placement Former nicotine dependence Hypertension PICC line, TPN Plan: Continue on current medication regime ,monitoring and symptomatic treatment. Continue delirium management as per psychiatry. Blood cultures finalizing. Maintained Strict aspiration precautions, okay to have water and ice chips. TPN. Maintained COvid regimen/vitamin supplements, Lovenox.FiO2 titration as per pulmonary.Prognosis guarded given multiple complex medical issues. The impression and plan of care has been dictated as directed. : I performed a history and examination of this patient, discussed the same with the dictator. I agree with the dictator's note ,documented as a scribe. Any additional findings or plans will be noted.
--- NOTE | 2020-06-29 17:09 | P.PN ---
Subjective Progress Note Date: 06/29/20 Principal diagnosis: Acute hypoxemic respiratory failure secondary to CoVID 19 pneumonitis This is a 70-year-old gentleman that was seen in the emergency room on June 21. He was sent into the emergency room after being seen by his primary care doctor because of increasing shortness of breath, and concerns that the patient might have COVID 19. In addition to shortness of breath, the patient states he's been having lots of chest congestion, and is been coughing. When he coughs, it is painful in his chest. He has been sick for at least 2 weeks. In addition, he has muscle aches and joint aches, weakness and fatigue, and fever and chills. Currently, he is on a nonrebreather mask. Saturations are 92%. His primary care physician Dr. Vijay Encarnacion. He was not receiving any IV fluids. His primary medical problems include atrial fibrillation, coronary artery disease, hy perlipidemia, hypertension, gastroesophageal reflux disease, and prior myocardial infarction. The patient is a lifelong nontobacco user. White count is 4.9, hemoglobin 13.5, hematocrit 39.5, platelet count 92,000. PTT 61.3. D- dimer 2.41. Sodium 132, potassium 4.8, chloride 105, CO2 18, anion gap 9, BUN and creatinine 52 and 2.05. Calcium 7.6, AST 156, pO2 102, LDH 2018. C- reactive protein 158. I was not able to look at the chest x-ray. There is apparently a partially occlusive opacity at the right lung base consistent with acute pneumonic process. CT angiogram was not performed. Patient was reevaluated today on 06/23/2020, patient is feeling better today compared to how he felt yesterday. Patient is on high flow cannula running at 15 L/m, his O2 saturation is in the mid to high 80s he is on 100% FiO2 basically. His chest x-ray does not seem to be impressive, he does have conso lidative opacity in the right lung base consistent with acute pneumonic process. Left lung is relatively clear. No significant pulmonary congestion. D-dimer is 2.56. Renal profile is not good enough for performing a CT angiogram of the chest, however I will recommend bilateral venous Doppler on this patient just to make sure we were not dealing with thromboembolic process. Again the patient te lls me that his feeling better today compared to how he felt yesterday. Clinically improving. Patient was reevaluated today on 06/24/2020, patient remains on high flow oxygen. He is on 15 L high flow cannula, and his O2 saturations 92% at best. Patient continues to have shortness of breath, intermittent episodes of cough. He has no fever, his vital signs are relatively stable. During my evaluation, patient was constantly coughing. CBC is relatively normal electrolytes are normal BUN is 52 creatinine 1.45. LDH is elevated at 1586. Venous Doppler yesterday was negative. Chest x-ray on admission showed consolidation at the right lung base. I also suspect some consolidation at the left base/retrocardiac area. Progress note dated 06/25/2020. Currently, the patient was on BiPAP and on percent. Earlier today, he desaturated, and the nurses had a hard time getting his saturations back up. We did do a blood gas on the patient. PO2 was 63, pCO2 was 33, pH was 7.44. That was on 100% on the BiPAP. White count 14.8, hemoglobin hematocrit and platelet count all normal. Sodium 136, potassium 4.9, chlorides 107, CO2 20, anion gap 9, BUN 45, creatinine 1.28. Chest x-ray today showed diffuse bilateral patchy infiltrates which are stable. Yesterday, he was on high flow nasal O2 at 15 L/m. Progress note dated 06/26/2020. 70-year-old male, currently on BiPAP, at 16/6 and 80%. His saturations were good, so the FiO2 was dropped from 80% down to 60%. The patient appears to be doing reasonably well, although he did become somewhat tachypnea today when he was being evaluated here. Saturations are 90% on the 60% FiO2. Temperature is 98.1, and blood pressure 173/104. White count 14.9, and hemoglobin, hematocrit, and platelet count are all normal. Sodium 135, potassium 5.2, chlorides 106, CO2 18, anion gap 11, BUN 38, creatinine 1.23. Chest x-ray from June 25, shows bilateral patchy infiltrates. The patient is seen today 06/27/2020 in follow-up on the regular medical floor. He is currently resting fairly comfortably in bed. He is maintaining O2 saturation in the 90s on BiPAP 16/6 and 60% FiO2. 0.9 normal saline at 50 MLS per hour. Chest x-ray continues to show patchy bilateral infiltrates compatible with superimposed interstitial pneumonia. White count 8.3. Hemoglobin 13.4. Sodium 139. Potassium 5.6. Creatinine 1.13. He is continued on dexamethasone, Xarelto, vitamin supplements. The patient is seen today 06/28/2020 follow-up on the selective care unit. He is currently sitting up in bed. Remains on BiPAP 16/6 and 100% FiO2 maintaining O2 saturation the high 80s low 90s. He is 0.9 normal saline at 50 MLS per hour. He is now on Lovenox, dexamethasone, vitamin supplements. PICC line placed today. The patient is seen today 06/29/2020 follow-up on the selective care unit. He remains on BiPAP 16/6 and 100% FiO2 to maintain O2 saturations in the low 90s. He is afebrile. Currently being nourished with TPN via PICC line. 0.9 normal saline at 50 ML's per hour. Blood cultures reveal no growth. Sodium 140. Potassium 5.1. Creatinine 1.18. Glucose 125. He remains on dexamethasone, Lovenox, vitamin supplements. Objective - Vital Signs Vital signs: Vital Signs Temp 98.7 F 06/29/20 12:20 Pulse 61 06/29/20 12:20 Resp 19 06/29/20 12:20 BP 138/85 06/29/20 12:20 Pulse Ox 92 L 06/29/20 12:20 Intake & Output 06/28/20 06/29/20 06/29/20 18:59 06:59 18:59 Intake Total 320 50 Output Total 1400 900 Balance -1400 320 -850 Weight 88.5 kg 87 kg 87 kg Intake: Intake, IV Titration 320 50 Amount Mvi, Adult No.4 with Vit 120 K 10 ml Trace (Conc-1Ml/ Dose) 1 ml Sodium Acetate 28 meq Sodium Phosphate 6 mmol Calcium Gluconate 1 gm In Amino Acid 5%- D15w 1,000 ml @ 30 mls/hr IV .Q24H ROBERT Rx#: [id number] Sodium Chloride 0.9% 1, 200 50 000 ml @ 50 mls/hr IV . Q20H ROBERT Rx#:[id number] Output: Urine 1400 900 Other: Voiding Method Urinal Urinal Indwelling Catheter # Voids 950 - Exam GENERAL EXAM: Alert, 70-year-old gentleman, on BiPAP 16/6 and 100% FiO2, comfortable in no apparent distress. HEAD: Normocephalic. EYES: Normal reaction of pupils, equal size. NOSE: Clear with pink turbinates. THROAT: No erythema or exudates. NECK: No masses, no JVD. CHEST: No chest wall deformity. LUNGS: Equal air entry with crackles in the bilateral posterior bases. CVS: S1 and S2 normal with no audible murmur, regular rhythm. ABDOMEN: No hepatosplenomegaly, normal bowel sounds, no guarding or rigidity. SPINE: No scoliosis or deformity SKIN: No rashes CENTRAL NERVOUS SYSTEM: No focal deficits, tone is normal in all 4 extremities. EXTREMITIES: There is no peripheral edema. No clubbing, no cyanosis. Peripheral pulses are intact. - Labs CBC & Chem 7: 06/27/20 10:18 06/29/20 06:09 Labs: Abnormal Lab Results - Last 24 Hours (Table) 06/28/20 06/29/20 06/29/20 Range/Units 17:11 00:05 06:04 Chloride (98-107) mmol/L Carbon Dioxide (22-30) mmol/L BUN (9-20) mg/dL Glucose (74-99) mg/dL POC Glucose (mg/dL) 130 H 161 H 116 H (75-99) mg/dL Magnesium (1.6-2.3) mg/dL 06/29/20 06/29/20 Range/Units 06:09 12:17 Chloride 114 H (98-107) mmol/L Carbon Dioxide 20 L (22-30) mmol/L BUN 43 H (9-20) mg/dL Glucose 125 H (74-99) mg/dL POC Glucose (mg/dL) 147 H (75-99) mg/dL Magnesium 2.4 H (1.6-2.3) mg/dL Microbiology - Last 24 Hours (Table) 06/27/20 14:31 Blood Culture - Preliminary Blood No Growth after 48 hours 06/27/20 13:05 Blood Culture - Preliminary Blood No Growth after 48 hours 06/26/20 12:44 Blood Culture - Preliminary Blood No Growth after 72 hours Assessment and Plan Assessment: 1 Acute hypoxemic respiratory failure secondary to CoVID 19 pneumonia/pneumonitis. Outside the window for Remdesivir 2 History of atrial fibrillation 3 Coronary disease with previous stent placement 4 Gastroesophageal reflux disease 6 Hypertension 7 Hyperlipidemia 8 Rheumatic fever, history of 9 History of gout 10 Acute kidney injury Plan: The patient was seen and evaluated by Dr. Olsen Being nourished with TPN via PICC line Remains on Lovenox, Decadron, vitamin supplements Titrate down the FiO2 as tolerated He has been slow to progress We'll continue to follow I, the cosigning physician, performed a history & physical examination of the patient. Lungs sounds crackles in the bilateral posterior bases. Maintaining good O2 saturations in the 90s on BiPAP 16/6 and 100% FiO2. I discussed the assessment and plan of care with my nurse practitioner, Kathy Mcgill. I attest to the above note as dictated by her.
[2020-06-29 17:12] LABS: Glucose,Whole Blood 155 mg/dL (75-99)
[2020-06-29] MEDS: [UNRECOGNIZED DRUG - REMARK] IV SCH ×6 (19:03)
[2020-06-29] MEDS: OLANZapine 7.5 MG TAB PO SCH (20:17)
[2020-06-29] MEDS: ATORVASTATIN 10 MG TAB PO SCH (20:17)
[2020-06-30] MEDS: INSULIN ASPART (NovoLOG) 100 UNIT/ML VIAL SQ SCH ×4 (00:14→17:45)
[2020-06-30] MEDS: GABAPENTIN 100 MG CAP PO PRN (00:14)
[2020-06-30 00:20] LABS: Glucose,Whole Blood 200 mg/dL (75-99)
[2020-06-30 03:24] LABS: Glucose,Whole Blood 100 mg/dL (75-99)
[2020-06-30 05:55] LABS: Glucose,Whole Blood 80 mg/dL (75-99)
[2020-06-30] MEDS: DEXAMETHASONE SOD PHOSPHATE 10 MG/ML 1 ML VIAL IV SCH (09:04)
[2020-06-30] MEDS: ASCORBIC ACID 500 MG TAB PO SCH ×2 (09:05→20:09)
[2020-06-30] MEDS: allopurinoL 100 MG TAB PO SCH (09:05)
[2020-06-30] MEDS: FAMOTIDINE 20 MG TAB PO SCH ×2 (09:05→20:09)
[2020-06-30] MEDS: ZINC SULFATE 220 MG CAP PO SCH (09:05)
[2020-06-30] MEDS: ENOXAPARIN 100 MG/ML SYRINGE SQ SCH ×2 (09:05→20:09)
[2020-06-30] MEDS: CHOLECALCIFEROL 25 MCG (1000 IU) TABLET PO SCH (09:05)
[2020-06-30] MEDS: SODIUM CHLORIDE 0.9% 1,000 ML IV SCH (09:06)
[2020-06-30] MEDS: METOPROLOL TARTRATE 25 MG TAB PO SCH ×2 (09:14→20:09)
[2020-06-30 10:10] LABS: ALT 72 U/L (4-49); African American GFR (CKD) >90 (>60 ml/min/1.73 sqM); Albumin 3.1 g/dL (3.5-5.0); Anion Gap 9 mmol/L; Blood Urea Nitrogen 39 mg/dL (9-20); C Reactive Protein 53.8 mg/L (<10.0); Calcium 8.8 mg/dL (8.4-10.2); Carbon Dioxide 19 mmol/L (22-30); Chloride 112 mmol/L (98-107); Glucose 76 mg/dL (74-99); LDH 1591 U/L (313-618); Non-African American GFR(CKD) 78 (>60 ml/min/1.73 sqM); Phosphorus 3.5 mg/dL (2.5-4.5); Sodium 140 mmol/L (137-145); Total Bilirubin 1.5 mg/dL (0.2-1.3); Total Protein 6.5 g/dL (6.3-8.2)
[2020-06-30 10:11] LABS: Magnesium 2.1 mg/dL (1.6-2.3); Potassium 5.2 mmol/L (3.5-5.1)
[2020-06-30] MEDS: FAT EMULSION 20% 250 ML in EMPTY BAG 1 BAG IV SCH (10:11)
[2020-06-30 10:12] LABS: AST 63 U/L (17-59); Alkaline Phosphatase 89 U/L (38-126)
[2020-06-30 12:09] LABS: Glucose,Whole Blood 122 mg/dL (75-99)
[2020-06-30] MEDS: ALBUTEROL HFA INHALER INHALATION PRN ×3 (13:15→19:54)
[2020-06-30] MEDS: [UNRECOGNIZED DRUG - REMARK] IV SCH ×6 (15:35)
--- NOTE | 2020-06-30 16:34 | P.PN ---
Subjective Progress Note Date: 06/30/20 Principal diagnosis: Acute hypoxemic respiratory failure secondary to CoVID 19 pneumonitis This is a 70-year-old gentleman that was seen in the emergency room on June 21. He was sent into the emergency room after being seen by his primary care doctor because of increasing shortness of breath, and concerns that the patient might have COVID 19. In addition to shortness of breath, the patient states he's been having lots of chest congestion, and is been coughing. When he coughs, it is painful in his chest. He has been sick for at least 2 weeks. In addition, he has muscle aches and joint aches, weakness and fatigue, and fever and chills. Currently, he is on a nonrebreather mask. Saturations are 92%. His primary care physician Dr. Vijay Encarnacion. He was not receiving any IV fluids. His primary medical problems include atrial fibrillation, coronary artery disease, hy perlipidemia, hypertension, gastroesophageal reflux disease, and prior myocardial infarction. The patient is a lifelong nontobacco user. White count is 4.9, hemoglobin 13.5, hematocrit 39.5, platelet count 92,000. PTT 61.3. D- dimer 2.41. Sodium 132, potassium 4.8, chloride 105, CO2 18, anion gap 9, BUN and creatinine 52 and 2.05. Calcium 7.6, AST 156, pO2 102, LDH 2018. C- reactive protein 158. I was not able to look at the chest x-ray. There is apparently a partially occlusive opacity at the right lung base consistent with acute pneumonic process. CT angiogram was not performed. Patient was reevaluated today on 06/23/2020, patient is feeling better today compared to how he felt yesterday. Patient is on high flow cannula running at 15 L/m, his O2 saturation is in the mid to high 80s he is on 100% FiO2 basically. His chest x-ray does not seem to be impressive, he does have conso lidative opacity in the right lung base consistent with acute pneumonic process. Left lung is relatively clear. No significant pulmonary congestion. D-dimer is 2.56. Renal profile is not good enough for performing a CT angiogram of the chest, however I will recommend bilateral venous Doppler on this patient just to make sure we were not dealing with thromboembolic process. Again the patient te lls me that his feeling better today compared to how he felt yesterday. Clinically improving. Patient was reevaluated today on 06/24/2020, patient remains on high flow oxygen. He is on 15 L high flow cannula, and his O2 saturations 92% at best. Patient continues to have shortness of breath, intermittent episodes of cough. He has no fever, his vital signs are relatively stable. During my evaluation, patient was constantly coughing. CBC is relatively normal electrolytes are normal BUN is 52 creatinine 1.45. LDH is elevated at 1586. Venous Doppler yesterday was negative. Chest x-ray on admission showed consolidation at the right lung base. I also suspect some consolidation at the left base/retrocardiac area. Progress note dated 06/25/2020. Currently, the patient was on BiPAP and on percent. Earlier today, he desaturated, and the nurses had a hard time getting his saturations back up. We did do a blood gas on the patient. PO2 was 63, pCO2 was 33, pH was 7.44. That was on 100% on the BiPAP. White count 14.8, hemoglobin hematocrit and platelet count all normal. Sodium 136, potassium 4.9, chlorides 107, CO2 20, anion gap 9, BUN 45, creatinine 1.28. Chest x-ray today showed diffuse bilateral patchy infiltrates which are stable. Yesterday, he was on high flow nasal O2 at 15 L/m. Progress note dated 06/26/2020. 70-year-old male, currently on BiPAP, at 16/6 and 80%. His saturations were good, so the FiO2 was dropped from 80% down to 60%. The patient appears to be doing reasonably well, although he did become somewhat tachypnea today when he was being evaluated here. Saturations are 90% on the 60% FiO2. Temperature is 98.1, and blood pressure 173/104. White count 14.9, and hemoglobin, hematocrit, and platelet count are all normal. Sodium 135, potassium 5.2, chlorides 106, CO2 18, anion gap 11, BUN 38, creatinine 1.23. Chest x-ray from June 25, shows bilateral patchy infiltrates. The patient is seen today 06/27/2020 in follow-up on the regular medical floor. He is currently resting fairly comfortably in bed. He is maintaining O2 saturation in the 90s on BiPAP 16/6 and 60% FiO2. 0.9 normal saline at 50 MLS per hour. Chest x-ray continues to show patchy bilateral infiltrates compatible with superimposed interstitial pneumonia. White count 8.3. Hemoglobin 13.4. Sodium 139. Potassium 5.6. Creatinine 1.13. He is continued on dexamethasone, Xarelto, vitamin supplements. The patient is seen today 06/28/2020 follow-up on the selective care unit. He is currently sitting up in bed. Remains on BiPAP 16/6 and 100% FiO2 maintaining O2 saturation the high 80s low 90s. He is 0.9 normal saline at 50 MLS per hour. He is now on Lovenox, dexamethasone, vitamin supplements. PICC line placed today. The patient is seen today 06/29/2020 follow-up on the selective care unit. He remains on BiPAP 16/6 and 100% FiO2 to maintain O2 saturations in the low 90s. He is afebrile. Currently being nourished with TPN via PICC line. 0.9 normal saline at 50 ML's per hour. Blood cultures reveal no growth. Sodium 140. Potassium 5.1. Creatinine 1.18. Glucose 125. He remains on dexamethasone, Lovenox, vitamin supplements. The patient is seen today 06/30/2020 follow-up on the selective care unit. He is currently resting fairly comfortably in bed. Remains on BiPAP 16/6 at 100% FiO2. He is being nourished with TPN and lipids via PICC line. 0.9 normal saline at 50 MLS per hour. He states he is still quite fatigued but improved today compared to yesterday. Cultures reveal no growth. D-dimer 10.2. Sodium 140. Potassium 5.2. Creatinine 0.99. LDH 1591. C-reactive protein 53.8. He remains on therapeutic Lovenox, dexamethasone, vitamin supplements. Objective - Vital Signs Vital signs: Vital Signs Temp 99.9 F H 06/30/20 12:00 Pulse 53 L 06/30/20 12:00 Resp 21 06/30/20 12:00 BP 118/75 06/30/20 12:00 Pulse Ox 93 L 06/30/20 12:00 Intake & Output 06/29/20 06/30/20 06/30/20 18:59 06:59 18:59 Intake Total 470 1412 Output Total 900 1450 700 Balance -430 -1450 712 Weight 87 kg 86.5 kg Intake: Intake, IV Titration 470 1412 Amount Fat Emulsion 20% 250 ml 120 40 In Empty Bag 1 bag @ 21 mls/hr IV DAILY ROBERT Rx#: [id number] Mvi, Adult No.4 with Vit 300 K 10 ml Trace (Conc-1Ml/ Dose) 1 ml Sodium Acetate 28 meq Sodium Phosphate 6 mmol Calcium Gluconate 1 gm In Amino Acid 5%- D15w 1,000 ml @ 30 mls/hr IV .Q24H ROBERT Rx#: [id number] Mvi, Adult No.4 with Vit 972 K 10 ml Trace (Conc-1Ml/ Dose) 1 ml Sodium Acetate 28 meq Sodium Phosphate 6 mmol Calcium Gluconate 1 gm In Amino Acid 5%- D15w 1,000 ml @ 45 mls/hr IV .Q23H3M ROBERT Rx#: [id number] Sodium Chloride 0.9% 1, 50 400 000 ml @ 50 mls/hr IV . Q20H ROBERT Rx#:[id number] Oral 0 Output: Urine 900 1450 700 Other: Voiding Method Indwelling Catheter Indwelling Catheter Indwelling Catheter # Bowel Movements 0 - Exam GENERAL EXAM: Alert, 70-year-old gentleman, on BiPAP 16/6 and 100% FiO2, comfortable in no apparent distress. HEAD: Normocephalic. EYES: Normal reaction of pupils, equal size. NOSE: Clear with pink turbinates. THROAT: No erythema or exudates. NECK: No masses, no JVD. CHEST: No chest wall deformity. LUNGS: Equal air entry with crackles in the bilateral posterior bases. CVS: S1 and S2 normal with no audible murmur, regular rhythm. ABDOMEN: No hepatosplenomegaly, normal bowel sounds, no guarding or rigidity. SPINE: No scoliosis or deformity SKIN: No rashes CENTRAL NERVOUS SYSTEM: No focal deficits, tone is normal in all 4 extremities. EXTREMITIES: There is no peripheral edema. No clubbing, no cyanosis. Peripheral pulses are intact. - Labs CBC & Chem 7: 06/27/20 10:18 06/30/20 08:33 Labs: Abnormal Lab Results - Last 24 Hours (Table) 06/29/20 06/30/20 06/30/20 Range/Units 17:09 00:08 03:22 D-Dimer (<0.60) mg/L FEU Potassium (3.5-5.1) mmol/L Chloride (98-107) mmol/L Carbon Dioxide (22-30) mmol/L BUN (9-20) mg/dL POC Glucose (mg/dL) 155 H 200 H 100 H (75-99) mg/dL Total Bilirubin (0.2-1.3) mg/dL AST (17-59) U/L ALT (4-49) U/L Lactate Dehydrogenase (313-618) U/L C-Reactive Protein (<10.0) mg/L Albumin (3.5-5.0) g/dL 06/30/20 06/30/20 06/30/20 Range/Units 08:33 08:33 12:02 D-Dimer 10.23 H (<0.60) mg/L FEU Potassium 5.2 H (3.5-5.1) mmol/L Chloride 112 H (98-107) mmol/L Carbon Dioxide 19 L (22-30) mmol/L BUN 39 H (9-20) mg/dL POC Glucose (mg/dL) 122 H (75-99) mg/dL Total Bilirubin 1.5 H (0.2-1.3) mg/dL AST 63 H (17-59) U/L ALT 72 H (4-49) U/L Lactate Dehydrogenase 1591 H (313-618) U/L C-Reactive Protein 53.8 H (<10.0) mg/L Albumin 3.1 L (3.5-5.0) g/dL Microbiology - Last 24 Hours (Table) 06/27/20 13:05 Blood Culture - Preliminary Blood No Growth after 72 hours 06/26/20 12:44 Blood Culture - Preliminary Blood No Growth after 96 hours 06/27/20 14:31 Blood Culture - Preliminary Blood No Growth after 48 hours Assessment and Plan Assessment: 1 Acute hypoxemic respiratory failure secondary to CoVID 19 pneumonia/p neumonitis. Outside the window for Remdesivir 2 History of atrial fibrillation 3 Coronary disease with previous stent placement 4 Gastroesophageal reflux disease 6 Hypertension 7 Hyperlipidemia 8 Rheumatic fever, history of 9 History of gout 10 Acute kidney injury Plan: The patient was seen and evaluated by Dr. Olsen Being nourished with TPN via PICC line Remains on therapeutic Lovenox, Decadron, vitamin supplements Titrate down the FiO2 as tolerated He has been slow to progress Follow-up chest x-ray in a.m. We'll continue to follow I, the cosigning physician, performed a history & physical examination of the patient. Lungs sounds crackles in the bilateral posterior bases. Maintaining good O2 saturations in the 90s on BiPAP 16/6 and 100% FiO2. I discussed the assessment and plan of care with my nurse practitioner, Kathy Mcgill. I attest to the above note as dictated by her.
[2020-06-30 16:57] LABS: Glucose,Whole Blood 180 mg/dL (75-99)
[2020-06-30] MEDS: ATORVASTATIN 10 MG TAB PO SCH (20:09)
[2020-06-30] MEDS: OLANZapine 7.5 MG TAB PO SCH (20:09)
[2020-07-01 00:05] LABS: Glucose,Whole Blood 137 mg/dL (75-99)
[2020-07-01] MEDS: GABAPENTIN 100 MG CAP PO PRN (00:08)
[2020-07-01] MEDS: INSULIN ASPART (NovoLOG) 100 UNIT/ML VIAL SQ SCH ×4 (00:08→18:06)
--- NOTE | 2020-07-01 01:25 | P.PN ---
Subjective This is a pleasant 70 years old male with past medical history of atrial fibrillation, coronary artery disease status post stent, GERD, hyperlipidemia, hypertension. Presents with respiratory symptoms secondary to call. Pneumonia, patient is with acute hypoxic respiratory failure needing BiPAP support. This hemodynamically stable Labs showing worsening d-dimer up to 10.2. Patient is currently on therapeutic dose of Lovenox 100 mg twice a day. Also mild increase in LFTs, LDH elevated at 1591 and C-reactive protein at 53. Patient is currently covered with dexamethasone, vitamin C, vitamin D and sink. Normal saline at 50 the prep work and Lovenox as above Objective - Vital Signs Vital signs: Vital Signs Temp 98.8 F 06/30/20 20:00 Pulse 64 06/30/20 20:00 Resp 24 06/30/20 20:00 BP 143/84 06/30/20 20:00 Pulse Ox 98 06/30/20 20:00 Intake & Output 06/30/20 06/30/20 07/01/20 06:59 18:59 06:59 Intake Total 1876 95 Output Total 1450 1050 Balance -1450 826 95 Weight 86.5 kg Intake: IV 180 95 Mvi, Adult No.4 with Vit 180 95 K 10 ml Trace (Conc-1Ml/ Dose) 1 ml Sodium Acetate 28 meq Sodium Phosphate 6 mmol Calcium Gluconate 1 gm In Amino Acid 5%- D15w 1,000 ml @ 45 mls/hr IV .Q23H3M ROBERT Rx#: [id number] Intake, IV Titration 1696 Amount Fat Emulsion 20% 250 ml 124 In Empty Bag 1 bag @ 21 mls/hr IV DAILY ROBERT Rx#: [id number] Mvi, Adult No.4 with Vit 972 K 10 ml Trace (Conc-1Ml/ Dose) 1 ml Sodium Acetate 28 meq Sodium Phosphate 6 mmol Calcium Gluconate 1 gm In Amino Acid 5%- D15w 1,000 ml @ 45 mls/hr IV .Q23H3M ROBERT Rx#: [id number] Sodium Chloride 0.9% 1, 600 000 ml @ 50 mls/hr IV . Q20H ROBERT Rx#:[id number] Oral 0 Output: Urine 1450 1050 Other: Voiding Method Indwelling Catheter Indwelling Catheter Indwelling Catheter # Bowel Movements 0 - Exam -GENERAL: The patient is alert and oriented x3, not in any acute distress. Well on BiPAP machine HEENT: Pupils are round and equally reacting to light. EOMI. No scleral icterus. No conjunctival pallor. Normocephalic, atraumatic. No pharyngeal erythema. No thyromegaly. CARDIOVASCULAR: S1 and S2 present. No murmurs, rubs, or gallops. PULMONARY: Chest is clear to auscultation, no wheezing or crackles. ABDOMEN: Soft, nontender, nondistended, normoactive bowel sounds. No palpable organomegaly. MUSCULOSKELETAL: No joint swelling or deformity. EXTREMITIES: No cyanosis, clubbing, or pedal edema. NEUROLOGICAL: Gross neurological examination did not reveal any focal deficits. SKIN: No rashes. no petechiae. - Labs CBC & Chem 7: 06/27/20 10:18 06/30/20 08:33 Labs: Abnormal Lab Results - Last 24 Hours (Table) 06/30/20 06/30/20 06/30/20 Range/Units 03:22 08:33 08:33 D-Dimer 10.23 H (<0.60) mg/L FEU Potassium 5.2 H (3.5-5.1) mmol/L Chloride 112 H (98-107) mmol/L Carbon Dioxide 19 L (22-30) mmol/L BUN 39 H (9-20) mg/dL POC Glucose (mg/dL) 100 H (75-99) mg/dL Total Bilirubin 1.5 H (0.2-1.3) mg/dL AST 63 H (17-59) U/L ALT 72 H (4-49) U/L Lactate Dehydrogenase 1591 H (313-618) U/L C-Reactive Protein 53.8 H (<10.0) mg/L Albumin 3.1 L (3.5-5.0) g/dL 06/30/20 06/30/20 06/30/20 Range/Units 12:02 16:49 23:58 D-Dimer (<0.60) mg/L FEU Potassium (3.5-5.1) mmol/L Chloride (98-107) mmol/L Carbon Dioxide (22-30) mmol/L BUN (9-20) mg/dL POC Glucose (mg/dL) 122 H 180 H 137 H (75-99) mg/dL Total Bilirubin (0.2-1.3) mg/dL AST (17-59) U/L ALT (4-49) U/L Lactate Dehydrogenase (313-618) U/L C-Reactive Protein (<10.0) mg/L Albumin (3.5-5.0) g/dL Microbiology - Last 24 Hours (Table) 06/27/20 14:31 Blood Culture - Preliminary Blood No Growth after 72 hours 06/27/20 13:05 Blood Culture - Preliminary Blood No Growth after 72 hours 06/26/20 12:44 Blood Culture - Preliminary Blood No Growth after 96 hours Assessment and Plan Assessment: Acute bilateral: Pneumonia Acute hypoxic respiratory failure secondary to above Increased inflammatory markers Paroxysmal atrial fibrillation Hypertension Hyperlipidemia coronary artery disease status post stent Plan: This is a pleasant 70 years old male who presents with Covid Continue with vitamin C, vitamin D and zinc. Continue with steroids, gentle hydration and Lovenox. Patient is followed closely by pulmonary service. Patient needs BiPAP machine most of the time to keep his saturation above 90% Labs and medication were reviewed.. Continue same treatment. Continue with symptomatic treatment. Resume home medication. Monitor lytes and vitals. DVT and GI prophylaxis. Further recommendationsas per clinical course of the patient DVT prophylaxis: Subcutaneous Lovenox GI Prophylaxis: Pepcid PT/OT: Pending Prognosis is guarded
[2020-07-01] MEDS: SODIUM CHLORIDE 0.9% 1,000 ML IV SCH (06:02)
[2020-07-01 06:13] LABS: Glucose,Whole Blood 105 mg/dL (75-99)
[2020-07-01] MEDS: ALBUTEROL HFA INHALER INHALATION PRN ×2 (07:24→10:39)
[2020-07-01] MEDS: FAMOTIDINE 20 MG TAB PO SCH ×2 (09:08→21:05)
[2020-07-01] MEDS: ZINC SULFATE 220 MG CAP PO SCH (09:08)
[2020-07-01] MEDS: METOPROLOL TARTRATE 25 MG TAB PO SCH ×2 (09:08→21:05)
[2020-07-01] MEDS: allopurinoL 100 MG TAB PO SCH (09:08)
[2020-07-01] MEDS: ASCORBIC ACID 500 MG TAB PO SCH ×2 (09:08→21:04)
[2020-07-01] MEDS: DEXAMETHASONE SOD PHOSPHATE 10 MG/ML 1 ML VIAL IV SCH (09:08)
[2020-07-01] MEDS: CHOLECALCIFEROL 25 MCG (1000 IU) TABLET PO SCH (09:08)
[2020-07-01] MEDS: ENOXAPARIN 100 MG/ML SYRINGE SQ SCH ×2 (09:09→21:05)
[2020-07-01 09:10] LABS: African American GFR (CKD) >90 (>60 ml/min/1.73 sqM); Anion Gap 8 mmol/L; Blood Urea Nitrogen 34 mg/dL (9-20); Calcium 8.7 mg/dL (8.4-10.2); Carbon Dioxide 23 mmol/L (22-30); Chloride 111 mmol/L (98-107); Glucose 120 mg/dL (74-99); Magnesium 1.8 mg/dL (1.6-2.3); Non-African American GFR(CKD) 82 (>60 ml/min/1.73 sqM); Phosphorus 3.4 mg/dL (2.5-4.5); Potassium 4.8 mmol/L (3.5-5.1); Sodium 142 mmol/L (137-145)
--- NOTE | 2020-07-01 09:46 | XR ---
EXAMINATION TYPE: XR chest 1V portable DATE OF EXAM: 07/01/2020 COMPARISON: 06/28/2020 INDICATION: Covid TECHNIQUE: Single frontal view of the chest is obtained. FINDINGS: The heart size is normal. The pulmonary vasculature is normal. Bibasilar infiltrates are present. Some milder increased infiltrate is in the upper lung robison. Find ings appear stable. Gland and represent atelectatic in the superior vena cava region. IMPRESSION: 1. Scattered bilateral lung infiltrates stable.
[2020-07-01] MEDS: FAT EMULSION 20% 250 ML in EMPTY BAG 1 BAG IV SCH (10:12)
[2020-07-01 11:56] LABS: Glucose,Whole Blood 165 mg/dL (75-99)
[2020-07-01] MEDS ORDERED: MAGNESIUM SULFATE-D5W PMX 1 GM in DEXTROSE/WATER 1 100ML.BAG IVPB ONE (14:00)
--- NOTE | 2020-07-01 14:40 | P.PN ---
Subjective This is a pleasant 70 years old male with past medical history of atrial fibrillation, coronary artery disease status post stent, GERD, hyperlipidemia, hypertension. Presents with respiratory symptoms secondary to call. Pneumonia, patient is with acute hypoxic respiratory failure needing BiPAP support. This hemodynamically stable Labs showing worsening d-dimer up to 10.2. Patient is currently on therapeutic dose of Lovenox 100 mg twice a day. Also mild increase in LFTs, LDH elevated at 1591 and C-reactive protein at 53. Patient is currently covered with dexamethasone, vitamin C, vitamin D and sink. Normal saline at 50 the prep work and Lovenox as above 07/01/2020 Patient remains on BiPAP. He is fully awake and follow commands. He is saturating 95% on FiO2 of 100% compared to 89% on FiO2 of 85% earlier during the day. He is tachypneic at 20, afebrile. Is unremarkable, glucose controlled, magnesium 1.8. D-dimer was elevated at 10.2, he is already on Lovenox therapeutic dose at 100 mg twice a day. Patient follow up closely by pulmonary service. Patient is on dexamethasone, multiple vitamins, vitamin, normal saline at 50 mL per hour and Lovenox as above. Monitor LDH and C-reactive protein, CBC, BMP and liver enzymes tomorrow Objective - Vital Signs Vital signs: Vital Signs Temp 99.5 F 07/01/20 12:00 Pulse 71 07/01/20 12:00 Resp 20 07/01/20 12:00 BP 158/74 07/01/20 12:00 Pulse Ox 95 07/01/20 12:00 Intake & Output 06/30/20 07/01/20 07/01/20 18:59 06:59 18:59 Intake Total 1876 335 Output Total 1050 1250 Balance 826 -915 Weight 86 kg Intake: IV 180 135 Mvi, Adult No.4 with Vit 180 135 K 10 ml Trace (Conc-1Ml/ Dose) 1 ml Sodium Acetate 28 meq Sodium Phosphate 6 mmol Calcium Gluconate 1 gm In Amino Acid 5%- D15w 1,000 ml @ 45 mls/hr IV .Q23H3M ROBERT Rx#: [id number] Intake, IV Titration 1696 200 Amount Fat Emulsion 20% 250 ml 124 In Empty Bag 1 bag @ 21 mls/hr IV DAILY ROBERT Rx#: [id number] Mvi, Adult No.4 with Vit 972 K 10 ml Trace (Conc-1Ml/ Dose) 1 ml Sodium Acetate 28 meq Sodium Phosphate 6 mmol Calcium Gluconate 1 gm In Amino Acid 5%- D15w 1,000 ml @ 45 mls/hr IV .Q23H3M ROBERT Rx#: [id number] Sodium Chloride 0.9% 1, 600 200 000 ml @ 50 mls/hr IV . Q20H ROBERT Rx#:[id number] Oral 0 Output: Urine 1050 1250 Other: Voiding Method Indwelling Catheter Indwelling Catheter Indwelling Catheter - Exam -GENERAL: The patient is alert and oriented x3, not in any acute distress. Well on BiPAP machine HEENT: Pupils are round and equally reacting to light. EOMI. No scleral icterus. No conjunctival pallor. Normocephalic, atraumatic. No pharyngeal erythema. No thyromegaly. CARDIOVASCULAR: S1 and S2 present. No murmurs, rubs, or gallops. PULMONARY: Chest is clear to auscultation, no wheezing or crackles. ABDOMEN: Soft, nontender, nondistended, normoactive bowel sounds. No palpable organomegaly. MUSCULOSKELETAL: No joint swelling or deformity. EXTREMITIES: No cyanosis, clubbing, or pedal edema. NEUROLOGICAL: Gross neurological examination did not reveal any focal deficits. SKIN: No rashes. no petechiae. - Labs CBC & Chem 7: 06/27/20 10:18 07/01/20 08:26 Labs: Abnormal Lab Results - Last 24 Hours (Table) 06/30/20 06/30/20 07/01/20 Range/Units 16:49 23:58 06:12 Chloride (98-107) mmol/L BUN (9-20) mg/dL Glucose (74-99) mg/dL POC Glucose (mg/dL) 180 H 137 H 105 H (75-99) mg/dL 07/01/20 07/01/20 Range/Units 08:26 11:41 Chloride 111 H (98-107) mmol/L BUN 34 H (9-20) mg/dL Glucose 120 H (74-99) mg/dL POC Glucose (mg/dL) 165 H (75-99) mg/dL Microbiology - Last 24 Hours (Table) 06/27/20 14:31 Blood Culture - Preliminary Blood No Growth after 72 hours 06/27/20 13:05 Blood Culture - Preliminary Blood No Growth after 72 hours 06/26/20 12:44 Blood Culture - Preliminary Blood No Growth after 96 hours Assessment and Plan Assessment: Acute bilateral: Pneumonia Acute hypoxic respiratory failure secondary to above Increased inflammatory markers Paroxysmal atrial fibrillation Hypertension Hyperlipidemia coronary artery disease status post stent Plan: This is a pleasant 70 years old male who presents with Covid Continue with vitamin C, vitamin D and zinc. Continue with steroids, gentle hydration and Lovenox. Patient is followed closely by pulmonary service. Patient needs BiPAP machine most of the time to keep his saturation above 90% Labs and medication were reviewed.. Continue same treatment. Continue with symptomatic treatment. Resume home medication. Monitor lytes and vitals. DVT and GI prophylaxis. Further recommendationsas per clinical course of the patient DVT prophylaxis: Subcutaneous Lovenox GI Prophylaxis: Pepcid Prognosis is guarded The patient will be followed by Dr. Encarnacion team tomorrow
[2020-07-01] MEDS: [UNRECOGNIZED DRUG - REMARK] IV SCH ×6 (14:55)
--- NOTE | 2020-07-01 16:26 | P.PN ---
Subjective Progress Note Date: 07/01/20 Principal diagnosis: Acute hypoxemic respiratory failure secondary to CoVID 19 pneumonitis This is a 70-year-old gentleman that was seen in the emergency room on June 21. He was sent into the emergency room after being seen by his primary care doctor because of increasing shortness of breath, and concerns that the patient might have COVID 19. In addition to shortness of breath, the patient states he's been having lots of chest congestion, and is been coughing. When he coughs, it is painful in his chest. He has been sick for at least 2 weeks. In addition, he has muscle aches and joint aches, weakness and fatigue, and fever and chills. Currently, he is on a nonrebreather mask. Saturations are 92%. His primary care physician Dr. Vijay Encarnacion. He was not receiving any IV fluids. His primary medical problems include atrial fibrillation, coronary artery disease, hy perlipidemia, hypertension, gastroesophageal reflux disease, and prior myocardial infarction. The patient is a lifelong nontobacco user. White count is 4.9, hemoglobin 13.5, hematocrit 39.5, platelet count 92,000. PTT 61.3. D- dimer 2.41. Sodium 132, potassium 4.8, chloride 105, CO2 18, anion gap 9, BUN and creatinine 52 and 2.05. Calcium 7.6, AST 156, pO2 102, LDH 2018. C- reactive protein 158. I was not able to look at the chest x-ray. There is apparently a partially occlusive opacity at the right lung base consistent with acute pneumonic process. CT angiogram was not performed. Patient was reevaluated today on 06/23/2020, patient is feeling better today compared to how he felt yesterday. Patient is on high flow cannula running at 15 L/m, his O2 saturation is in the mid to high 80s he is on 100% FiO2 basically. His chest x-ray does not seem to be impressive, he does have conso lidative opacity in the right lung base consistent with acute pneumonic process. Left lung is relatively clear. No significant pulmonary congestion. D-dimer is 2.56. Renal profile is not good enough for performing a CT angiogram of the chest, however I will recommend bilateral venous Doppler on this patient just to make sure we were not dealing with thromboembolic process. Again the patient te lls me that his feeling better today compared to how he felt yesterday. Clinically improving. Patient was reevaluated today on 06/24/2020, patient remains on high flow oxygen. He is on 15 L high flow cannula, and his O2 saturations 92% at best. Patient continues to have shortness of breath, intermittent episodes of cough. He has no fever, his vital signs are relatively stable. During my evaluation, patient was constantly coughing. CBC is relatively normal electrolytes are normal BUN is 52 creatinine 1.45. LDH is elevated at 1586. Venous Doppler yesterday was negative. Chest x-ray on admission showed consolidation at the right lung base. I also suspect some consolidation at the left base/retrocardiac area. Progress note dated 06/25/2020. Currently, the patient was on BiPAP and on percent. Earlier today, he desaturated, and the nurses had a hard time getting his saturations back up. We did do a blood gas on the patient. PO2 was 63, pCO2 was 33, pH was 7.44. That was on 100% on the BiPAP. White count 14.8, hemoglobin hematocrit and platelet count all normal. Sodium 136, potassium 4.9, chlorides 107, CO2 20, anion gap 9, BUN 45, creatinine 1.28. Chest x-ray today showed diffuse bilateral patchy infiltrates which are stable. Yesterday, he was on high flow nasal O2 at 15 L/m. Progress note dated 06/26/2020. 70-year-old male, currently on BiPAP, at 16/6 and 80%. His saturations were good, so the FiO2 was dropped from 80% down to 60%. The patient appears to be doing reasonably well, although he did become somewhat tachypnea today when he was being evaluated here. Saturations are 90% on the 60% FiO2. Temperature is 98.1, and blood pressure 173/104. White count 14.9, and hemoglobin, hematocrit, and platelet count are all normal. Sodium 135, potassium 5.2, chlorides 106, CO2 18, anion gap 11, BUN 38, creatinine 1.23. Chest x-ray from June 25, shows bilateral patchy infiltrates. The patient is seen today 06/27/2020 in follow-up on the regular medical floor. He is currently resting fairly comfortably in bed. He is maintaining O2 saturation in the 90s on BiPAP 16/6 and 60% FiO2. 0.9 normal saline at 50 MLS per hour. Chest x-ray continues to show patchy bilateral infiltrates compatible with superimposed interstitial pneumonia. White count 8.3. Hemoglobin 13.4. Sodium 139. Potassium 5.6. Creatinine 1.13. He is continued on dexamethasone, Xarelto, vitamin supplements. The patient is seen today 06/28/2020 follow-up on the selective care unit. He is currently sitting up in bed. Remains on BiPAP 16/6 and 100% FiO2 maintaining O2 saturation the high 80s low 90s. He is 0.9 normal saline at 50 MLS per hour. He is now on Lovenox, dexamethasone, vitamin supplements. PICC line placed today. The patient is seen today 06/29/2020 follow-up on the selective care unit. He remains on BiPAP 16/6 and 100% FiO2 to maintain O2 saturations in the low 90s. He is afebrile. Currently being nourished with TPN via PICC line. 0.9 normal saline at 50 ML's per hour. Blood cultures reveal no growth. Sodium 140. Potassium 5.1. Creatinine 1.18. Glucose 125. He remains on dexamethasone, Lovenox, vitamin supplements. The patient is seen today 06/30/2020 follow-up on the selective care unit. He is currently resting fairly comfortably in bed. Remains on BiPAP 16/6 at 100% FiO2. He is being nourished with TPN and lipids via PICC line. 0.9 normal saline at 50 MLS per hour. He states he is still quite fatigued but improved today compared to yesterday. Cultures reveal no growth. D-dimer 10.2. Sodium 140. Potassium 5.2. Creatinine 0.99. LDH 1591. C-reactive protein 53.8. He remains on therapeutic Lovenox, dexamethasone, vitamin supplements. The patient is seen today 07/01/2020 in follow-up on the selective care unit. He is resting comfortably in bed. Continued on BiPAP 16/6 and 100% FiO2 to maintain O2 saturations in the high 80s low 90s. Chest x-ray continues to show scattered bilateral lung infiltrates which are stable compared to previous. Sodium 142. Potassium 4.8. Creatinine 0.95. Yesterday's d-dimer 10.23. Remains on therapeutic Lovenox at 100 mg subcu every 12 hours, Decadron, vitamin supplements. Objective - Vital Signs Vital signs: Vital Signs Temp 99.5 F 07/01/20 12:00 Pulse 71 07/01/20 12:00 Resp 20 07/01/20 12:00 BP 158/74 07/01/20 12:00 Pulse Ox 95 07/01/20 12:00 Intake & Output 06/30/20 07/01/20 07/01/20 18:59 06:59 18:59 Intake Total 2819 029 4954 Output Total 1050 1250 500 Balance 826 -915 1473 Weight 86 kg Intake: IV 180 135 360 Mvi, Adult No.4 with Vit 180 135 360 K 10 ml Trace (Conc-1Ml/ Dose) 1 ml Sodium Acetate 28 meq Sodium Phosphate 6 mmol Calcium Gluconate 1 gm In Amino Acid 5%- D15w 1,000 ml @ 45 mls/hr IV .Q23H3M ROBERT Rx#: [id number] Intake, IV Titration 5075 543 3070 Amount Fat Emulsion 20% 250 ml 124 126 In Empty Bag 1 bag @ 21 mls/hr IV DAILY ROBERT Rx#: [id number] Mvi, Adult No.4 with Vit 972 1037 K 10 ml Trace (Conc-1Ml/ Dose) 1 ml Sodium Acetate 28 meq Sodium Phosphate 6 mmol Calcium Gluconate 1 gm In Amino Acid 5%- D15w 1,000 ml @ 45 mls/hr IV .Q23H3M ROBERT Rx#: [id number] Sodium Chloride 0.9% 1, 600 200 400 000 ml @ 50 mls/hr IV . Q20H ROBERT Rx#:[id number] Oral 0 50 Output: Urine 1050 1250 500 Other: Voiding Method Indwelling Catheter Indwelling Catheter Indwelling Catheter - Exam GENERAL EXAM: Alert, 70-year-old gentleman, on BiPAP 16/6 and 100% FiO2, comfortable in no apparent distress. HEAD: Normocephalic. EYES: Normal reaction of pupils, equal size. NOSE: Clear with pink turbinates. THROAT: No erythema or exudates. NECK: No masses, no JVD. CHEST: No chest wall deformity. LUNGS: Equal air entry with crackles in the bilateral posterior bases. CVS: S1 and S2 normal with no audible murmur, regular rhythm. ABDOMEN: No hepatosplenomegaly, normal bowel sounds, no guarding or rigidity. SPINE: No scoliosis or deformity SKIN: No rashes CENTRAL NERVOUS SYSTEM: No focal deficits, tone is normal in all 4 extremities. EXTREMITIES: There is no peripheral edema. No clubbing, no cyanosis. Peripheral pulses are intact. - Labs CBC & Chem 7: 06/27/20 10:18 07/01/20 08:26 Labs: Abnormal Lab Results - Last 24 Hours (Table) 06/30/20 06/30/20 07/01/20 Range/Units 16:49 23:58 06:12 Chloride (98-107) mmol/L BUN (9-20) mg/dL Glucose (74-99) mg/dL POC Glucose (mg/dL) 180 H 137 H 105 H (75-99) mg/dL 07/01/20 07/01/20 Range/Units 08:26 11:41 Chloride 111 H (98-107) mmol/L BUN 34 H (9-20) mg/dL Glucose 120 H (74-99) mg/dL POC Glucose (mg/dL) 165 H (75-99) mg/dL Microbiology - Last 24 Hours (Table) 06/27/20 13:05 Blood Culture - Preliminary Blood No Growth after 96 hours 06/26/20 12:44 Blood Culture - Preliminary Blood No Growth after 120 hours 06/27/20 14:31 Blood Culture - Preliminary Blood No Growth after 72 hours Assessment and Plan Assessment: 1 Acute hypoxemic respiratory failure secondary to CoVID 19 pneumonia/pneumonitis. Outside the window for Remdesivir 2 History of atrial fibrillation 3 Coronary disease with previous stent placement 4 Gastroesophageal reflux disease 6 Hypertension 7 Hyperlipidemia 8 Rheumatic fever, history of 9 History of gout 10 Acute kidney injury Plan: The patient was seen and evaluated by Dr. Olsen Remains on BiPAP 16/6 and 100% FiO2 Being nourished with TPN via PICC line Remains on therapeutic Lovenox, Decadron, vitamin supplements Titrate down the FiO2 as tolerated We'll continue to follow I, the cosigning physician, performed a history & physical examination of the patient. Lungs sounds crackles in the bilateral posterior bases. Maintaining good O2 saturations in the 90s on BiPAP 16/6 and 100% FiO2. I discussed the assessment and plan of care with my nurse practitioner, Kathy Mcgill. I attest to the above note as dictated by her.
[2020-07-01 16:51] LABS: Glucose,Whole Blood 186 mg/dL (75-99)
[2020-07-01 19:54] LABS: Glucose,Whole Blood 181 mg/dL (75-99)
[2020-07-01] MEDS: ATORVASTATIN 10 MG TAB PO SCH (21:04)
[2020-07-01] MEDS: OLANZapine 7.5 MG TAB PO SCH (21:05)
[2020-07-02 00:04] LABS: Glucose,Whole Blood 150 mg/dL (75-99)
[2020-07-02] MEDS: INSULIN ASPART (NovoLOG) 100 UNIT/ML VIAL SQ SCH ×4 (00:21→18:09)
[2020-07-02 06:43] LABS: Glucose,Whole Blood 127 mg/dL (75-99)
[2020-07-02] MEDS: ALBUTEROL HFA INHALER INHALATION PRN ×4 (07:16→19:41)
[2020-07-02 07:57] LABS: Basophils % (A) 0 %; Eosinophils # (A) 0.1 k/uL (0-0.7); Eosinophils % (A) 1 %; HCT 37.6 % (39.0-53.0); HGB 12.1 gm/dL (13.0-17.5); Lymphocytes # (A) 0.3 k/uL (1.0-4.8); Lymphocytes % (A) 3 %; MCH 29.7 pg (25.0-35.0); MCHC 32.2 g/dL (31.0-37.0); MCV 92.3 fL (80.0-100.0); Mean Platelet Volume 9.1; Monocytes # (A) 0.4 k/uL (0-1.0); Monocytes % (A) 4 %; Neutrophils % (A) 92 %; Platelet Count 155 k/uL (150-450); RBC 4.07 m/uL (4.30-5.90); RDW 13.4 % (11.5-15.5); WBC 9.8 k/uL (3.8-10.6)
[2020-07-02 08:14] LABS: African American GFR (CKD) >90 (>60 ml/min/1.73 sqM); Anion Gap 8 mmol/L; Blood Urea Nitrogen 31 mg/dL (9-20); Calcium 8.3 mg/dL (8.4-10.2); Carbon Dioxide 22 mmol/L (22-30); Chloride 109 mmol/L (98-107); Glucose 103 mg/dL (74-99); LDH 1009 U/L (313-618); Magnesium 1.8 mg/dL (1.6-2.3); Non-African American GFR(CKD) 83 (>60 ml/min/1.73 sqM); Phosphorus 3.2 mg/dL (2.5-4.5); Potassium 4.3 mmol/L (3.5-5.1); Sodium 139 mmol/L (137-145)
[2020-07-02 08:26] LABS: C Reactive Protein 143.3 mg/L (<10.0)
[2020-07-02] MEDS: ZINC SULFATE 220 MG CAP PO SCH (08:36)
[2020-07-02] MEDS: FAMOTIDINE 20 MG TAB PO SCH ×2 (08:36→21:33)
[2020-07-02] MEDS: allopurinoL 100 MG TAB PO SCH (08:36)
[2020-07-02] MEDS: ASCORBIC ACID 500 MG TAB PO SCH ×2 (08:37→21:34)
[2020-07-02] MEDS: CHOLECALCIFEROL 25 MCG (1000 IU) TABLET PO SCH (08:37)
[2020-07-02] MEDS: METOPROLOL TARTRATE 25 MG TAB PO SCH ×2 (08:37→21:33)
[2020-07-02] MEDS: ENOXAPARIN 100 MG/ML SYRINGE SQ SCH (08:37)
[2020-07-02] MEDS: FAT EMULSION 20% 250 ML in EMPTY BAG 1 BAG IV SCH (08:37)
[2020-07-02] MEDS: DEXAMETHASONE SOD PHOSPHATE 10 MG/ML 1 ML VIAL IV SCH (08:37)
[2020-07-02] MEDS: SODIUM CHLORIDE 0.9% 1,000 ML IV SCH ×2 (08:38→18:09)
--- NOTE | 2020-07-02 10:47 | P.PN ---
Subjective Progress Note Date: 07/02/20 Acute hypoxemic respiratory failure secondary to CoVID 19 pneumonitis This is a 70-year-old gentleman that was seen in the emergency room on June 21. He was sent into the emergency room after being seen by his primary care doctor because of increasing shortness of breath, and concerns that the patient might have COVID 19. In addition to shortness of breath, the patient states he's been having lots of chest congestion, and is been coughing. When he coughs, it is painful in his chest. He has been sick for at least 2 weeks. In addition, he has muscle aches and joint aches, weakness and fatigue, and fever and chills. Currently, he is on a nonrebreather mask. Saturations are 92%. His primary care physician Dr. Vijay Encarnacion. He was not receiving any IV fluids. His primary medical problems include atrial fibrillation, coronary artery disease, hyperlipidemia, hypertension, gastroesophageal reflux disease, and prior myocardial infarction. The patient is a lifelong nontobacco user. White count is 4.9, hemoglobin 13.5, hematocrit 39.5, platelet count 92,000. PTT 61.3. D- dimer 2.41. Sodium 132, potassium 4.8, chloride 105, CO2 18, anion gap 9, BUN and creatinine 52 and 2.05. Calcium 7.6, AST 156, pO2 102, LDH 2018. C- reactive protein 158. I was not able to look at the chest x-ray. There is apparently a partially occlusive opacity at the right lung base consistent with acute pneumonic process. CT angiogram was not performed. Patient was reevaluated today on 06/23/2020, patient is feeling better today compared to how he felt yesterday. Patient is on high flow cannula running at 15 L/m, his O2 saturation is in the mid to high 80s he is on 100% FiO2 basically. His chest x-ray does not seem to be impressive, he does have consolidative opacity in the right lung base consistent with acute pneumonic process. Left lung is relatively clear. No significant pulmonary congestion. D-dimer is 2.56. Renal profile is not good enough for performing a CT angiogram of the chest, however I will recommend bilateral venous Doppler on this patient just to make sure we were not dealing with thromboembolic process. Again the patient tells me that his feeling better today compared to how he felt yesterday. Clinically improving. Patient was reevaluated today on 06/24/2020, patient remains on high flow oxygen. He is on 15 L high flow cannula, and his O2 saturations 92% at best. Patient continues to have shortness of breath, intermittent episodes of cough. He has no fever, his vital signs are relatively stable. During my evaluation, patient was constantly coughing. CBC is relatively normal electrolytes are normal BUN is 52 creatinine 1.45. LDH is elevated at 1586. Venous Doppler yesterday was negative. Chest x-ray on admission showed consolidation at the right lung base. I also suspect some consolidation at the left base/retrocardiac area. Progress note dated 06/25/2020. Currently, the patient was on BiPAP and on percent. Earlier today, he desaturated, and the nurses had a hard time getting his saturations back up. We did do a blood gas on the patient. PO2 was 63, pCO2 was 33, pH was 7.44. That was on 100% on the BiPAP. White count 14.8, hemoglobin hematocrit and platelet count all normal. Sodium 136, potassium 4.9, chlorides 107, CO2 20, anion gap 9, BUN 45, creatinine 1.28. Chest x-ray today showed diffuse bilateral patchy infiltrates which are stable. Yesterday, he was on high flow nasal O2 at 15 L/m. Progress note dated 06/26/2020. 70-year-old male, currently on BiPAP, at 16/6 and 80%. His saturations were good, so the FiO2 was dropped from 80% down to 60%. The patient appears to be doing reasonably well, although he did become somewhat tachypnea today when he was being evaluated here. Saturations are 90% on the 60% FiO2. Temperature is 98.1, and blood pressure 173/104. White count 14.9, and hemoglobin, hematocrit, and platelet count are all normal. Sodium 135, potassium 5.2, chlorides 106, CO2 18, anion gap 11, BUN 38, creatinine 1.23. Chest x-ray from June 25, shows bilateral patchy infiltrates. The patient is seen today 06/27/2020 in follow-up on the regular medical floor. He is currently resting fairly comfortably in bed. He is maintaining O2 saturation in the 90s on BiPAP 16/6 and 60% FiO2. 0.9 normal saline at 50 MLS per hour. Chest x-ray continues to show patchy bilateral infiltrates compatible with superimposed interstitial pneumonia. White count 8.3. Hemoglobin 13.4. Sodium 139. Potassium 5.6. Creatinine 1.13. He is continued on dexamethasone, Xarelto, vitamin supplements. The patient is seen today 06/28/2020 follow-up on the selective care unit. He is currently sitting up in bed. Remains on BiPAP 16/6 and 100% FiO2 maintaining O2 saturation the high 80s low 90s. He is 0.9 normal saline at 50 MLS per hour. He is now on Lovenox, dexamethasone, vitamin supplements. PICC line placed today. The patient is seen today 06/29/2020 follow-up on the selective care unit. He remains on BiPAP 16/6 and 100% FiO2 to maintain O2 saturations in the low 90s. He is afebrile. Currently being nourished with TPN via PICC line. 0.9 normal saline at 50 ML's per hour. Blood cultures reveal no growth. Sodium 140. Potassium 5.1. Creatinine 1.18. Glucose 125. He remains on dexamethasone, Lovenox, vitamin supplements. The patient is seen today 06/30/2020 follow-up on the selective care unit. He is currently resting fairly comfortably in bed. Remains on BiPAP 16/6 at 100% FiO2. He is being nourished with TPN and lipids via PICC line. 0.9 normal saline at 50 MLS per hour. He states he is still quite fatigued but improved today compared to yesterday. Cultures reveal no growth. D-dimer 10.2. Sodium 140. Potassium 5.2. Creatinine 0.99. LDH 1591. C-reactive protein 53.8. He remains on therapeutic Lovenox, dexamethasone, vitamin supplements. The patient is seen today 07/01/2020 in follow-up on the selective care unit. He is resting comfortably in bed. Continued on BiPAP 16/6 and 100% FiO2 to maintain O2 saturations in the high 80s low 90s. Chest x-ray continues to show scattered bilateral lung infiltrates which are stable compared to previous. Sodium 142. Potassium 4.8. Creatinine 0.95. Yesterday's d-dimer 10.23. Remains on therapeutic Lovenox at 100 mg subcu every 12 hours, Decadron, vitamin supplements. On today's evaluation of 07/02/2020 on seeing the patient for a follow-up. The patient remains on a BiPAP at a pressure of 16/6 cm of water and FiO2 of 80%. The patient is also receiving TPN for nutritional support. Therapeutic dose of Lovenox. His d-dimer was quite elevated at 10.2, normal renal function, normal electrolytes, CRP was elevated at 53 with an LDH level of 1591. Most recent chest x-ray from 07/01/2030 showing peripherally located infiltrates bilaterally. The patient is able to generate tidal volume of around 370 on the BiPAP machine. His extremities around 28. He is very weak. He cannot tolerate being off the BiPAP as the patient immediately desaturates even was taken pills or sips of water. He remains on TPN for nutritional support. His symptoms of his blood work today, he has white cell count of 9.8 with a hemoglobin of 12, sodium is 139 and a creatinine of 0.9. His current pulse ox on the percent on above-mentioned BiPAP setting with an FiO2 of 80%.Inflammatory markers are still elevated. D-dimer is at 5 and the patient also has an LDH level of 1009 with a CRP of 143.The chest x-ray from yesterday was showing worsening in the bilateral lower lobe pulmonary infiltrates especially in the right lower lobe. Objective - Vital Signs Vital signs: Vital Signs Temp 98.3 F 07/02/20 08:10 Pulse 64 07/02/20 08:10 Resp 21 07/02/20 08:10 BP 148/71 07/02/20 08:10 Pulse Ox 88 L 07/02/20 08:10 Intake & Output 07/01/20 07/02/20 07/02/20 18:59 06:59 18:59 Intake Total 2437 1465 Output Total 700 0 Balance 1737 1465 Weight 90 kg Intake: IV 540 540 Mvi, Adult No.4 with Vit 540 540 K 10 ml Trace (Conc-1Ml/ Dose) 1 ml Sodium Acetate 28 meq Sodium Phosphate 6 mmol Calcium Gluconate 1 gm In Amino Acid 5%- D15w 1,000 ml @ 45 mls/hr IV .Q23H3M [facility] Rx#: [id number] Intake, IV Titration 1847 650 Amount Fat Emulsion 20% 250 ml 210 In Empty Bag 1 bag @ 21 mls/hr IV DAILY [facility] Rx#: [id number] Mvi, Adult No.4 with Vit 1037 K 10 ml Trace (Conc-1Ml/ Dose) 1 ml Sodium Acetate 28 meq Sodium Phosphate 6 mmol Calcium Gluconate 1 gm In Amino Acid 5%- D15w 1,000 ml @ 45 mls/hr IV .Q23H3M [facility] Rx#: [id number] Sodium Chloride 0.9% 1, 600 650 000 ml @ 50 mls/hr IV . Q20H [facility] Rx#:[id number] Oral 50 275 Output: Urine 700 0 Other: Voiding Method Indwelling Catheter Indwelling Catheter Indwelling Catheter - Exam GENERAL EXAM: Alert, 70-year-old gentleman, on BiPAP 16/6 and 80% FiO2, comfortable in no apparent distress. HEAD: Normocephalic. EYES: Normal reaction of pupils, equal size. NOSE: Clear with pink turbinates. THROAT: No erythema or exudates. NECK: No masses, no JVD. CHEST: No chest wall deformity. LUNGS: Equal air entry with crackles in the bilateral posterior bases. CVS: S1 and S2 normal with no audible murmur, regular rhythm. ABDOMEN: No hepatosplenomegaly, normal bowel sounds, no guarding or rigidity. SPINE: No scoliosis or deformity SKIN: No rashes CENTRAL NERVOUS SYSTEM: No focal deficits, tone is normal in all 4 extremities. EXTREMITIES: There is no peripheral edema. No clubbing, no cyanosis. Peripheral pulses are intact. - Labs CBC & Chem 7: 07/02/20 07:00 07/02/20 07:00 Labs: Abnormal Lab Results - Last 24 Hours (Table) 07/01/20 07/01/20 07/01/20 Range/Units 11:41 16:36 19:53 RBC (4.30-5.90) m/uL Hgb (13.0-17.5) gm/dL Hct (39.0-53.0) % Neutrophils # (1.3-7.7) k/uL Lymphocytes # (1.0-4.8) k/uL D-Dimer (<0.60) mg/L FEU Chloride (98-107) mmol/L BUN (9-20) mg/dL Glucose (74-99) mg/dL POC Glucose (mg/dL) 165 H 186 H 181 H (75-99) mg/dL Calcium (8.4-10.2) mg/dL Lactate Dehydrogenase (313-618) U/L C-Reactive Protein (<10.0) mg/L 07/02/20 07/02/20 07/02/20 Range/Units 00:02 06:10 07:00 RBC (4.30-5.90) m/uL Hgb (13.0-17.5) gm/dL Hct (39.0-53.0) % Neutrophils # (1.3-7.7) k/uL Lymphocytes # (1.0-4.8) k/uL D-Dimer 5.05 H (<0.60) mg/L FEU Chloride (98-107) mmol/L BUN (9-20) mg/dL Glucose (74-99) mg/dL POC Glucose (mg/dL) 150 H 127 H (75-99) mg/dL Calcium (8.4-10.2) mg/dL Lactate Dehydrogenase (313-618) U/L C-Reactive Protein (<10.0) mg/L 07/02/20 07/02/20 Range/Units 07:00 07:00 RBC 4.07 L (4.30-5.90) m/uL Hgb 12.1 L (13.0-17.5) gm/dL Hct 37.6 L (39.0-53.0) % Neutrophils # 9.0 H (1.3-7.7) k/uL Lymphocytes # 0.3 L (1.0-4.8) k/uL D-Dimer (<0.60) mg/L FEU Chloride 109 H (98-107) mmol/L BUN 31 H (9-20) mg/dL Glucose 103 H (74-99) mg/dL POC Glucose (mg/dL) (75-99) mg/dL Calcium 8.3 L (8.4-10.2) mg/dL Lactate Dehydrogenase 1009 H (313-618) U/L C-Reactive Protein 143.3 H (<10.0) mg/L Microbiology - Last 24 Hours (Table) 06/27/20 14:31 Blood Culture - Preliminary Blood No Growth after 96 hours 06/27/20 13:05 Blood Culture - Preliminary Blood No Growth after 96 hours 06/26/20 12:44 Blood Culture - Preliminary Blood No Growth after 120 hours Assessment and Plan Plan: 1 Acute hypoxemic respiratory failure secondary to CoVID 19 pneum onia/pneumonitis. Outside the window for Remdesivir, and the patient remains on BiPAP at a pressure of 16/6 with an FiO2 of 80%. The patient is also receiving TPN for nutritional support. Slow to progress and the patient is still having ongoing issues with respiratory failure second to Covid 19 related pneumonia. Chest x-ray still showing persistent peripheral infiltrates bilaterally. The chest x-ray from yesterday was showing some interval worsening. LDH is lower on today's evaluation and the d-dimer is also dropped. The patient been on BiPAP for almost a week for now. He has very limited reserve. He desaturates while being off the BiPAP. He gets short of breath with limited amount of activity even was doing some in his bed. 2 History of atrial fibrillation 3 Coronary disease with previous stent placement 4 Gastroesophageal reflux disease 6 Hypertension 7 Hyperlipidemia 8 Rheumatic fever, history of 9 History of gout 10 Acute kidney injury, recovered and the patient's renal function is also normalized Plan: Remains on BiPAP 16/6 and 80% FiO2 Being nourished with TPN via PICC line Remains on therapeutic Lovenox and drop the dose to 45 mg subcu every 12 hours Decadron, vitamin supplements, currently on Decadron 60 mg IV every 24 hours Titrate down the FiO2 as tolerated We'll continue to follow, Obviously condition is critical and the patient's prognosis poor baseline above-mentioned comorbidities.
[2020-07-02 11:58] LABS: Glucose,Whole Blood 169 mg/dL (75-99)
--- NOTE | 2020-07-02 13:39 | P.PN ---
Progress Note - Text Progress Note Date: 07/02/20 Interval History: Patient was seen today for psychiatric follow-up regarding patient delirium and agitation. Patient continues to be on the BiPAP however is not in restraints any longer. Patient does not have a sitter at his side. He was sleeping when telegraphic typewriter installer went to go speak with him however was awoken. Patient has not received a Prolixin IM 5 mg dose since last . Patient denied any changes in his mood today. He knows that he is in the hospital and knows that it is June 2020. He knows his full name. He was able to converse as much as he could given his breathing. He states that he is able to sleep fairly at nighttime. He claims that he has been taking his medications. He asked about discharge. He denies any suicidal or homicidal ideations intent or plan and denies any auditory or visual hallucinations. Mental Status Exam: General Appearance: Patient appears to be overweight, lethargic at times however able to converse. Patient appears to have fair hygiene and grooming wearing hospital gown. Wearing a BiPAP. Behavior: Patient is calmly lying in bed, no agitation. Speech: Patient's speech is nonpressured. Mumbling Mood/Affect: Patient reports their mood is "fine", affect is congruent Suicidality/Homicidality: Patient denies having any suicidal or homicidal ideation intent or plan. Perceptions: Patient denies any visual hallucinations and denies any auditory hallucinations Though content/process: [place]. More logical today, not endorsing any paranoia or delusions Memory and concentration: AOX3, improving attention span. Judgment and insight: improving mildly Assessment Delirium, likely secondary to medications (steroids, BZD, opiates), resolving Plan: -At this time patient DOES NOT meet criteria for inpatient psychiatric admission. -Patient DOES NOT have decision making capacity at this time and is unable to reason through and communicate/appreciate the risks, benefits and alternatives to treatment. -Delirium precautions recommended with patient including - avoiding use of narcotics and SPECIMEN PREPARATION ASSISTANT sedatives, limit anticholinergic medications when possible, frequent re-orientation, minimize use of restraints, open window shades during the day and close them at night -Would recommend the following medication changes/additions: Can continue with Zyprexa to 7.5 mg daily at bedtime. continue with Prolixin IM 5mg q6hr prn for agitation/psychosis. Given the patient has been receiving steroids, benzodiazipines, opiates, these are all likely the contributing factors to patient's psychosis/agitation and consider decreasing these when possible/appropriate given patients medical concerns. -At this time it appears that patient delirium and agitation have resolved. Continue to treat underlying infection and medical comorbidities. At this time psychiatry will sign off. -Please contact with any questions.
[2020-07-02] MEDS ORDERED: [UNRECOGNIZED DRUG - REMARK] IV SCH ×7 (14:00)
--- NOTE | 2020-07-02 15:06 | P.PN ---
Subjective Progress Note Date: 07/02/20 This is 70-year-old gentleman with past medical history of hypertension, and gastroesophageal reflux disease, CAD, OR, chronic back pain with history of laminectomy and multiple other medical issues presented to the ER with history of fevers ,worsening shortness of breath. Patient had seen his PCP last week on Thursday the and was recommended to go for his covid test. Patient apparently never went for his test. Yesterday completed a tele visit with his PCP, Dr. Encarnacion, referred to the ER. Patient tested positive for Covid infection while in the ER. On admission patient hypoxic with O2 sat of 80% on room air, required nonrebreather to maintain O2 sats in the 90s to 100%. Febrile on admission with temperature 99.9, normal WBC. D-dimer 2.41, sodium 132, BUN 52, creatinine 2.05, ferritin 1556.7 total bili elevated on admission now within normal limits, mildly elevated LFTs, LDH 2411currently 2018, CRP 158.4. Given patient's renal function and respiratory status unable to proceed with CTA of chest or VQ to rule out PE, currently on heparin drip. Chest x-ray reported partially consolidative opacity in the right lung base consistent with acute pneumonic process. Telemetry sinus rhythm with fusion complexes and PACs with left axis deviation. Denies chest pain, palpitations. 06/25/2020 during the night and again this morning patient removing his oxygen, desatting into the high 40s, turning blue, return to 15 L high flow in addition to nonrebreather, O2 sats initially in the high 80s. As the morning progressed, only maintaining O2 sats in the low 80s and transitioned to BiPAP mask. Chest x-ray reported diffuse bilateral patchy infiltrates stable. Denies chest pain, palpitations. Xanax administered for anxiety. Continue to develop more agitation attempting deplorable off mask. crude unit operator placed in room. Eventually patient required IV push Haldol. Patient now maintaining O2 sat of 94% on 100% BiPAP. Afebrile, WBC 14.8. Creatinine improving, 1.28. 06/26/2020 requiring 100% BiPAP to maintain O2 sats in the low 90s. T-max 102.6. WBC 14.9. Telemetry reporting Sinus Tachycardia with heart rates up into the 120s. Echo reported LV function 40-45% . Potassium 5.2, Renal function improving. Blood sugars controlled. Anxious, agitated, combative at times. Sitter remains at bedside. Receiving when necessary Haldol. Staff reports patient was asking for the bar maid, unclear if history of EtOH abuse, with questionable withdrawal. Psychiatry consult in place with recommendations pending. 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 Received Ativan 1 mg IV push. Agitation lessened. Staff reports carmen ent was choking on water. Spiking fevers, T-max 100.5, labs pending. Taking O2 sats of 90 on 60% BiPAP. 06/28/2020 rough night with increased agitation and confusion despite Prolixin and Zyprexa. Reevaluated by psychiatry this morning with medication changes noted and appreciated. Unable to wean from 100% BiPAP, maintaining O2 sats of mid 80s to low 90s. Speech therapy unable to conduct swallow evaluation as patient unable to tolerate being off of BiPAP. Poor oral intake, renal function worsening. Sitter remains at bedside. Afebrile. 06/29/2020 100% BiPAP, maintaining O2 sats in the low 90s. Had a better night with less agitation, received Prolixin. Less confused this morning. Asking for ice chip. Complains of chronic back pain. Discussed CODE STATUS and patient wishes to remain a full code. Denies any chest pain, palpitations. BUN 43, creatinine 1.18. Received PICC line with TPN initiated yesterday. Blood sugars controlled. 07/03/2019 remains on 80% BiPAP, maintaining O2 sats in the high 80s. Minimal reserve-Unable to tolerate being off BiPAP mask . Receiving TPN via PICC line. Reporting that he is hungry.Calm, maintained on Zyprexa, prn Prolixin as per p sychiatry. Did not require Prolixin over the weekend. Sensorium significantly improved. Afebrile. D-dimer, LDH decreased, CRP increased. Objective - Vital Signs Vital signs: Vital Signs Temp 98.3 F 07/02/20 08:10 Pulse 67 07/02/20 12:00 Resp 18 07/02/20 12:00 BP 120/66 07/02/20 12:00 Pulse Ox 89 L 07/02/20 12:00 Intake & Output 07/01/20 07/02/20 07/02/20 18:59 06:59 18:59 Intake Total 2437 1465 Output Total 700 0 900 Balance 1737 1465 -900 Weight 90 kg 90 kg Intake: IV 540 540 Mvi, Adult No.4 with Vit 540 540 K 10 ml Trace (Conc-1Ml/ Dose) 1 ml Sodium Acetate 28 meq Sodium Phosphate 6 mmol Calcium Gluconate 1 gm In Amino Acid 5%- D15w 1,000 ml @ 45 mls/hr IV .Q23H3M ROBERT Rx#: [id number] Intake, IV Titration 1847 650 Amount Fat Emulsion 20% 250 ml 210 In Empty Bag 1 bag @ 21 mls/hr IV DAILY ROBERT Rx#: [id number] Mvi, Adult No.4 with Vit 1037 K 10 ml Trace (Conc-1Ml/ Dose) 1 ml Sodium Acetate 28 meq Sodium Phosphate 6 mmol Calcium Gluconate 1 gm In Amino Acid 5%- D15w 1,000 ml @ 45 mls/hr IV .Q23H3M ROBERT Rx#: [id number] Sodium Chloride 0.9% 1, 600 650 000 ml @ 50 mls/hr IV . Q20H ROBERT Rx#:[id number] Oral 50 275 Output: Urine 700 0 900 Other: Voiding Method Indwelling Catheter Indwelling Catheter Indwelling Catheter - Exam GENERAL: Sitting up in bed, no acute distress HEENT: Normocephalic. Neck is supple. Pupils reactive. CHEST EXAMINATION: Symmetrical expansion. Diminished, bibasilar crackles CARDIAC: Normal S1, S2 with no gallops. No murmurs ABDOMEN: Soft. Bowel sounds normal. No guarding. Extremities: reveal no edema. No clubbing or cyanosis Neurologically: Cranial nerves II through XII grossly intact , no focal deficits.awake, alert, oriented x3. Moving all extremities. Skin: Warm and dry, no rashes. - Labs CBC & Chem 7: 07/02/20 07:00 07/02/20 07:00 Labs: Abnormal Lab Results - Last 24 Hours (Table) 07/01/20 07/01/20 07/02/20 Range/Units 16:36 19:53 00:02 RBC (4.30-5.90) m/uL Hgb (13.0-17.5) gm/dL Hct (39.0-53.0) % Neutrophils # (1.3-7.7) k/uL Lymphocytes # (1.0-4.8) k/uL D-Dimer (<0.60) mg/L FEU Chloride (98-107) mmol/L BUN (9-20) mg/dL Glucose (74-99) mg/dL POC Glucose (mg/dL) 186 H 181 H 150 H (75-99) mg/dL Calcium (8.4-10.2) mg/dL Lactate Dehydrogenase (313-618) U/L C-Reactive Protein (<10.0) mg/L 07/02/20 07/02/20 07/02/20 Range/Units 06:10 07:00 07:00 RBC (4.30-5.90) m/uL Hgb (13.0-17.5) gm/dL Hct (39.0-53.0) % Neutrophils # (1.3-7.7) k/uL Lymphocytes # (1.0-4.8) k/uL D-Dimer 5.05 H (<0.60) mg/L FEU Chloride 109 H (98-107) mmol/L BUN 31 H (9-20) mg/dL Glucose 103 H (74-99) mg/dL POC Glucose (mg/dL) 127 H (75-99) mg/dL Calcium 8.3 L (8.4-10.2) mg/dL Lactate Dehydrogenase 1009 H (313-618) U/L C-Reactive Protein 143.3 H (<10.0) mg/L 07/02/20 07/02/20 Range/Units 07:00 11:57 RBC 4.07 L (4.30-5.90) m/uL Hgb 12.1 L (13.0-17.5) gm/dL Hct 37.6 L (39.0-53.0) % Neutrophils # 9.0 H (1.3-7.7) k/uL Lymphocytes # 0.3 L (1.0-4.8) k/uL D-Dimer (<0.60) mg/L FEU Chloride (98-107) mmol/L BUN (9-20) mg/dL Glucose (74-99) mg/dL POC Glucose (mg/dL) 169 H (75-99) mg/dL Calcium (8.4-10.2) mg/dL Lactate Dehydrogenase (313-618) U/L C-Reactive Protein (<10.0) mg/L Microbiology - Last 24 Hours (Table) 06/27/20 14:31 Blood Culture - Preliminary Blood No Growth after 96 hours 06/27/20 13:05 Blood Culture - Preliminary Blood No Growth after 96 hours 06/26/20 12:44 Blood Culture - Preliminary Blood No Growth after 120 hours Assessment and Plan Assessment: Sepsis secondary to Acute Covid -19 pneumonia Acute hypoxic respiratory failure secondary to the above Acute delirium, acute metabolic encephalopathy secondary to the above, possibly acute hypoxic encephalopathy, medication induced, steroids, benzos, opiates. Possible steroid psychosis. Significantly improved. Acute renal failure secondary to the above, improving Gastroesophageal reflux disease Chronic paroxysmal atrial fibrillation Chronic systolic CHF, EF 35-40% Coronary artery disease with history of OR,stent placement Former nicotine dependence Hypertension PICC line, TPN Plan: Continue on current medication regime ,monitoring and symptomatic treatm ent. Continue Covid cocktail. Strict aspiration precautions, okay to have water and ice chips. TPN. PT-minimal passive range of motion as patient has very little reserve. Prognosis guarded given multiple complex medical issues. The impression and plan of care has been dictated as directed. : I performed a history and examination of this patient, discussed the same with the dictator. I agree with the dictator's note ,documented as a scribe. Any additional findings or plans will be noted.
[2020-07-02 17:53] LABS: Glucose,Whole Blood 198 mg/dL (75-99)
[2020-07-02] MEDS: ATORVASTATIN 10 MG TAB PO SCH (21:33)
[2020-07-02] MEDS: OLANZapine 7.5 MG TAB PO SCH (21:33)
[2020-07-02] MEDS: ENOXAPARIN 60 MG/0.6 ML SYRINGE SQ SCH (21:36)
[2020-07-03 00:02] LABS: Glucose,Whole Blood 152 mg/dL (75-99)
[2020-07-03] MEDS: INSULIN ASPART (NovoLOG) 100 UNIT/ML VIAL SQ SCH ×4 (00:16→17:36)
[2020-07-03 05:59] LABS: Glucose,Whole Blood 142 mg/dL (75-99)
[2020-07-03] MEDS: ALBUTEROL HFA INHALER INHALATION PRN ×4 (08:20→20:47)
[2020-07-03] MEDS: ENOXAPARIN 60 MG/0.6 ML SYRINGE SQ SCH ×2 (08:37→20:27)
[2020-07-03 08:38] LABS: African American GFR (CKD) >90 (>60 ml/min/1.73 sqM); Anion Gap 6 mmol/L; Blood Urea Nitrogen 34 mg/dL (9-20); Calcium 8.7 mg/dL (8.4-10.2); Carbon Dioxide 20 mmol/L (22-30); Chloride 110 mmol/L (98-107); Glucose 122 mg/dL (74-99); Magnesium 1.9 mg/dL (1.6-2.3); Non-African American GFR(CKD) >90 (>60 ml/min/1.73 sqM); Phosphorus 3.5 mg/dL (2.5-4.5); Potassium 4.7 mmol/L (3.5-5.1); Sodium 136 mmol/L (137-145)
[2020-07-03] MEDS: ASCORBIC ACID 500 MG TAB PO SCH ×2 (08:38→20:26)
[2020-07-03] MEDS: ZINC SULFATE 220 MG CAP PO SCH (08:38)
[2020-07-03] MEDS: CHOLECALCIFEROL 25 MCG (1000 IU) TABLET PO SCH (08:38)
[2020-07-03] MEDS: FAMOTIDINE 20 MG TAB PO SCH ×2 (08:38→20:26)
[2020-07-03] MEDS: METOPROLOL TARTRATE 25 MG TAB PO SCH (08:38)
[2020-07-03] MEDS: FAT EMULSION 20% 250 ML in EMPTY BAG 1 BAG IV SCH (08:38)
[2020-07-03] MEDS: DEXAMETHASONE SOD PHOSPHATE 10 MG/ML 1 ML VIAL IV SCH (08:38)
[2020-07-03] MEDS: allopurinoL 100 MG TAB PO SCH (08:38)
[2020-07-03] MEDS: [UNRECOGNIZED DRUG - OTHER] IV SCH ×14 (09:57→23:44)
[2020-07-03] MEDS: SODIUM PHOSPHATE IV SCH ×14 (09:57→23:44)
[2020-07-03] MEDS: CALCIUM GLUCONATE IV SCH ×14 (09:57→23:44)
[2020-07-03] MEDS: SODIUM ACETATE IV SCH ×14 (09:57→23:44)
--- NOTE | 2020-07-03 11:14 | P.PN ---
Subjective Progress Note Date: 07/03/20 Acute hypoxemic respiratory failure secondary to CoVID 19 pneumonitis This is a 70-year-old gentleman that was seen in the emergency room on June 21. He was sent into the emergency room after being seen by his primary care doctor because of increasing shortness of breath, and concerns that the patient might have COVID 19. In addition to shortness of breath, the patient states he's been having lots of chest congestion, and is been coughing. When he coughs, it is painful in his chest. He has been sick for at least 2 weeks. In addition, he has muscle aches and joint aches, weakness and fatigue, and fever and chills. Currently, he is on a nonrebreather mask. Saturations are 92%. His primary care physician Dr. Vijay Encarnacion. He was not receiving any IV fluids. His primary medical problems include atrial fibrillation, coronary artery disease, hyperlipidemia, hypertension, gastroesophageal reflux disease, and prior myocardial infarction. The patient is a lifelong nontobacco user. White count is 4.9, hemoglobin 13.5, hematocrit 39.5, platelet count 92,000. PTT 61.3. D- dimer 2.41. Sodium 132, potassium 4.8, chloride 105, CO2 18, anion gap 9, BUN and creatinine 52 and 2.05. Calcium 7.6, AST 156, pO2 102, LDH 2018. C- reactive protein 158. I was not able to look at the chest x-ray. There is apparently a partially occlusive opacity at the right lung base consistent with acute pneumonic process. CT angiogram was not performed. Patient was reevaluated today on 06/23/2020, patient is feeling better today compared to how he felt yesterday. Patient is on high flow cannula running at 15 L/m, his O2 saturation is in the mid to high 80s he is on 100% FiO2 basically. His chest x-ray does not seem to be impressive, he does have consolidative opacity in the right lung base consistent with acute pneumonic process. Left lung is relatively clear. No significant pulmonary congestion. D-dimer is 2.56. Renal profile is not good enough for performing a CT angiogram of the chest, however I will recommend bilateral venous Doppler on this patient just to make sure we were not dealing with thromboembolic process. Again the patient tells me that his feeling better today compared to how he felt yesterday. Clinically improving. Patient was reevaluated today on 06/24/2020, patient remains on high flow oxygen. He is on 15 L high flow cannula, and his O2 saturations 92% at best. Patient continues to have shortness of breath, intermittent episodes of cough. He has no fever, his vital signs are relatively stable. During my evaluation, patient was constantly coughing. CBC is relatively normal electrolytes are normal BUN is 52 creatinine 1.45. LDH is elevated at 1586. Venous Doppler yesterday was negative. Chest x-ray on admission showed consolidation at the right lung base. I also suspect some consolidation at the left base/retrocardiac area. Progress note dated 06/25/2020. Currently, the patient was on BiPAP and on percent. Earlier today, he desaturated, and the nurses had a hard time getting his saturations back up. We did do a blood gas on the patient. PO2 was 63, pCO2 was 33, pH was 7.44. That was on 100% on the BiPAP. White count 14.8, hemoglobin hematocrit and platelet count all normal. Sodium 136, potassium 4.9, chlorides 107, CO2 20, anion gap 9, BUN 45, creatinine 1.28. Chest x-ray today showed diffuse bilateral patchy infiltrates which are stable. Yesterday, he was on high flow nasal O2 at 15 L/m. Progress note dated 06/26/2020. 70-year-old male, currently on BiPAP, at 16/6 and 80%. His saturations were good, so the FiO2 was dropped from 80% down to 60%. The patient appears to be doing reasonably well, although he did become somewhat tachypnea today when he was being evaluated here. Saturations are 90% on the 60% FiO2. Temperature is 98.1, and blood pressure 173/104. White count 14.9, and hemoglobin, hematocrit, and platelet count are all normal. Sodium 135, potassium 5.2, chlorides 106, CO2 18, anion gap 11, BUN 38, creatinine 1.23. Chest x-ray from June 25, shows bilateral patchy infiltrates. The patient is seen today 06/27/2020 in follow-up on the regular medical floor. He is currently resting fairly comfortably in bed. He is maintaining O2 saturation in the 90s on BiPAP 16/6 and 60% FiO2. 0.9 normal saline at 50 MLS per hour. Chest x-ray continues to show patchy bilateral infiltrates compatible with superimposed interstitial pneumonia. White count 8.3. Hemoglobin 13.4. Sodium 139. Potassium 5.6. Creatinine 1.13. He is continued on dexamethasone, Xarelto, vitamin supplements. The patient is seen today 06/28/2020 follow-up on the selective care unit. He is currently sitting up in bed. Remains on BiPAP 16/6 and 100% FiO2 maintaining O2 saturation the high 80s low 90s. He is 0.9 normal saline at 50 MLS per hour. He is now on Lovenox, dexamethasone, vitamin supplements. PICC line placed today. The patient is seen today 06/29/2020 follow-up on the selective care unit. He remains on BiPAP 16/6 and 100% FiO2 to maintain O2 saturations in the low 90s. He is afebrile. Currently being nourished with TPN via PICC line. 0.9 normal saline at 50 ML's per hour. Blood cultures reveal no growth. Sodium 140. Potassium 5.1. Creatinine 1.18. Glucose 125. He remains on dexamethasone, Lovenox, vitamin supplements. The patient is seen today 06/30/2020 follow-up on the selective care unit. He is currently resting fairly comfortably in bed. Remains on BiPAP 16/6 at 100% FiO2. He is being nourished with TPN and lipids via PICC line. 0.9 normal saline at 50 MLS per hour. He states he is still quite fatigued but improved today compared to yesterday. Cultures reveal no growth. D-dimer 10.2. Sodium 140. Potassium 5.2. Creatinine 0.99. LDH 1591. C-reactive protein 53.8. He remains on therapeutic Lovenox, dexamethasone, vitamin supplements. The patient is seen today 07/01/2020 in follow-up on the selective care unit. He is resting comfortably in bed. Continued on BiPAP 16/6 and 100% FiO2 to maintain O2 saturations in the high 80s low 90s. Chest x-ray continues to show scattered bilateral lung infiltrates which are stable compared to previous. Sodium 142. Potassium 4.8. Creatinine 0.95. Yesterday's d-dimer 10.23. Remains on therapeutic Lovenox at 100 mg subcu every 12 hours, Decadron, vitamin supplements. On today's evaluation of 07/02/2020 on seeing the patient for a follow-up. The patient remains on a BiPAP at a pressure of 16/6 cm of water and FiO2 of 80%. The patient is also receiving TPN for nutritional support. Therapeutic dose of Lovenox. His d-dimer was quite elevated at 10.2, normal renal function, normal electrolytes, CRP was elevated at 53 with an LDH level of 1591. Most recent chest x-ray from 07/01/2030 showing peripherally located infiltrates bilaterally. The patient is able to generate tidal volume of around 370 on the BiPAP machine. His extremities around 28. He is very weak. He cannot tolerate being off the BiPAP as the patient immediately desaturates even was taken pills or sips of water. He remains on TPN for nutritional support. His symptoms of his blood work today, he has white cell count of 9.8 with a hemoglobin of 12, sodium is 139 and a creatinine of 0.9. His current pulse ox on the percent on above-mentioned BiPAP setting with an FiO2 of 80%.Inflammatory markers are still elevated. D-dimer is at 5 and the patient also has an LDH level of 1009 with a CRP of 143.The chest x-ray from yesterday was showing worsening in the bilateral lower lobe pulmonary infiltrates especially in the right lower lobe. 07/03/2020 the patient remains on BiPAP at a pressure of 16/6 with an FiO2 of 80% and this is essentially the same setting as yesterday. His current vitals show a pulse ox of 94% on above-mentioned ventilator setting. He is afebrile. Breathing is nonlabored. He is still on TPN for nutritional support. His chest x-ray from 07/01/2020 showed peripheral pulmonary infiltrates consistent with Coumadin related pneumonia. No repeat x-rays since then. The patient remains considerably weak. His blood work from today showing no major electrolyte abnormalities. His LDH level was dropping yesterday down to 1009. He is still on Decadron 6 mg IV every 24 hours. He is also on Lovenox 45 mg subcu every 12 hours. On the BiPAP machine, degenerative tidal volumes around 400. Objective - Vital Signs Vital signs: Vital Signs Temp 98.5 F 07/03/20 08:35 Pulse 56 L 07/03/20 08:35 Resp 18 07/03/20 08:35 BP 121/63 07/03/20 08:35 Pulse Ox 92 L 07/03/20 08:35 Intake & Output 07/02/20 07/03/20 07/03/20 18:59 06:59 18:59 Intake Total 400 570 Output Total 1200 1200 500 Balance -800 -630 -500 Weight 90 kg 89 kg Intake: IV 400 270 Mvi, Adult No.4 with Vit 400 270 K 10 ml Trace (Conc-1Ml/ Dose) 1 ml Sodium Acetate 28 meq Sodium Phosphate 6 mmol Calcium Gluconate 1 gm In Amino Acid 5%- D15w 1,000 ml @ 45 mls/hr IV .Q23H3M ROBERT Rx#: [id number] Intake, IV Titration 300 Amount Sodium Chloride 0.9% 1, 300 000 ml @ 50 mls/hr IV . Q20H ROBERT Rx#:[id number] Output: Urine 1200 1200 500 Other: Voiding Method Indwelling Catheter Indwelling Catheter Indwelling Catheter - Exam GENERAL EXAM: Alert, 70-year-old gentleman, on BiPAP 16/6 and 80% FiO2, comfortable in no apparent distress. HEAD: Normocephalic. EYES: Normal reaction of pupils, equal size. NOSE: Clear with pink turbinates. THROAT: No erythema or exudates. NECK: No masses, no JVD. CHEST: No chest wall deformity. LUNGS: Equal air entry with crackles in the bilateral posterior bases. CVS: S1 and S2 normal with no audible murmur, regular rhythm. ABDOMEN: No hepatosplenomegaly, normal bowel sounds, no guarding or rigidity. SPINE: No scoliosis or deformity SKIN: No rashes CENTRAL NERVOUS SYSTEM: No focal deficits, tone is normal in all 4 extremities. EXTREMITIES: There is no peripheral edema. No clubbing, no cyanosis. Peripheral pulses are intact. - Labs CBC & Chem 7: 07/02/20 07:00 07/03/20 07:20 Labs: Abnormal Lab Results - Last 24 Hours (Table) 07/02/20 07/02/20 07/03/20 Range/Units 11:57 17:50 00:00 Sodium (137-145) mmol/L Chloride (98-107) mmol/L Carbon Dioxide (22-30) mmol/L BUN (9-20) mg/dL Glucose (74-99) mg/dL POC Glucose (mg/dL) 169 H 198 H 152 H (75-99) mg/dL 07/03/20 07/03/20 Range/Units 05:57 07:20 Sodium 136 L (137-145) mmol/L Chloride 110 H (98-107) mmol/L Carbon Dioxide 20 L (22-30) mmol/L BUN 34 H (9-20) mg/dL Glucose 122 H (74-99) mg/dL POC Glucose (mg/dL) 142 H (75-99) mg/dL Microbiology - Last 24 Hours (Table) 06/27/20 14:31 Blood Culture - Preliminary Blood No Growth after 120 hours 06/27/20 13:05 Blood Culture - Preliminary Blood No Growth after 120 hours 06/26/20 12:44 Blood Culture - Final Blood No Growth after 144 hours Assessment and Plan Plan: 1 Acute hypoxemic respiratory failure secondary to CoVID 19 pneumonia/pneumonitis. Outside the window for Remdesivir, and the patient remains on BiPAP at a pressure of 16/6 with an FiO2 of 80%. The patient is also receiving TPN for nutritional support. Slow to progress and the patient is still having ongoing issues with respiratory failure second to Covid 19 related pneumonia. Chest x-ray still showing persistent peripheral infiltrates bilaterally. Evaluation today shows no major progress and the patient remains on the same BiPAP setting, very borderline respiratory status with the patient dialysis pulse ox with talking or movement. He is weak. He is receiving TPN for nutritional support. 2 History of atrial fibrillation 3 Coronary disease with previous stent placement 4 Gastroesophageal reflux disease 6 Hypertension 7 Hyperlipidemia 8 Rheumatic fever, history of 9 History of gout 10 Acute kidney injury, recovered and the patient's renal function is also normalized Plan: Remains on BiPAP 16/6 and 80% FiO2, this will be continued. A repeat chest x- ray and inflammatory markers including d-dimer is will be obtained for tomorrow. Being nourished with TPN via PICC line Remains on therapeutic Lovenox and drop the dose to 45 mg subcu every 12 hours Decadron, vitamin supplements, currently on Decadron 6 mg IV every 24 hours Titrate down the FiO2 as tolerated We'll continue to follow, Obviously condition is critical and the patient's prognosis poor baseline above-mentioned comorbidities.
[2020-07-03 12:04] LABS: Glucose,Whole Blood 190 mg/dL (75-99)
--- NOTE | 2020-07-03 13:11 | XR ---
EXAMINATION TYPE: XR chest 1V portable DATE OF EXAM: 07/03/2020 COMPARISON: 07/01/2020 HISTORY: Shortness of breath TECHNIQUE: Single frontal view of the chest is obtained. FINDINGS: Patchy bilateral infiltrates again noted. There is a left-sided PICC line tip overlying th e SVC. No pneumothorax. Biapical pleural thickening. Heart size normal. Hypertrophic and degenerative change of the spine. Arthropathy of the shoulders. IMPRESSION: Patchy bilateral infiltrate stable
--- NOTE | 2020-07-03 16:12 | P.PN ---
Subjective Progress Note Date: 07/03/20 This is 70-year-old gentleman with past medical history of hypertension, and gastroesophageal reflux disease, CAD, [place], chronic back pain with history of laminectomy and multiple other medical issues presented to the ER with history of fevers ,worsening shortness of breath. Patient had seen his PCP last week on Thursday the and was recommended to go for his covid test. Patient apparently never went for his test. Yesterday completed a tele visit with his PCP, Dr. Encarnacion, referred to the ER. Patient tested positive for Covid infection while in the ER. On admission patient hypoxic with O2 sat of 80% on room air, required nonrebreather to maintain O2 sats in the 90s to 100%. Febrile on admission with temperature 99.9, normal WBC. D-dimer 2.41, sodium 132, BUN 52, creatinine 2.05, ferritin 1556.7 total bili elevated on admission now within normal limits, mildly elevated LFTs, LDH 2411currently 2018, CRP 158.4. Given patient's renal function and respiratory status unable to proceed with CTA of chest or VQ to rule out PE, currently on heparin drip. Chest x-ray reported partially consolidative opacity in the right lung base consistent with acute pneumonic process. Telemetry sinus rhythm with fusion complexes and PACs with left axis deviation. Denies chest pain, palpitations. 06/25/2020 during the night and again this morning patient removing his oxygen, desatting into the high 40s, turning blue, return to 15 L high flow in addition to nonrebreather, O2 sats initially in the high 80s. As the morning progressed, only maintaining O2 sats in the low 80s and transitioned to BiPAP mask. Chest x-ray reported diffuse bilateral patchy infiltrates stable. Denies chest pain, palpitations. Xanax administered for anxiety. Continue to develop more agitation attempting deplorable off mask. pt sitter placed in room. Eventually patient required IV push Haldol. Patient now maintaining O2 sat of 94% on 100% BiPAP. Afebrile, WBC 14.8. Creatinine improving, 1.28. 06/26/2020 requiring 100% BiPAP to maintain O2 sats in the low 90s. T-max 102.6. WBC 14.9. Telemetry reporting Sinus Tachycardia with heart rates up into the 120s. Echo reported LV function 40-45% . Potassium 5.2, Renal function improving. Blood sugars controlled. Anxious, agitated, combative at times. Sitter remains at bedside. Receiving when necessary Haldol. Staff reports patient was asking for the bar maid, unclear if history of EtOH abuse, with questionable withdrawal. Psychiatry consult in place with recommendations pending. 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 Received Ativan 1 mg IV push. Agitation lessened. Staff reports carmen ent was choking on water. Spiking fevers, T-max 100.5, labs pending. Taking O2 sats of 90 on 60% BiPAP. 06/28/2020 rough night with increased agitation and confusion despite Prolixin and Zyprexa. Reevaluated by psychiatry this morning with medication changes noted and appreciated. Unable to wean from 100% BiPAP, maintaining O2 sats of mid 80s to low 90s. Speech therapy unable to conduct swallow evaluation as patient unable to tolerate being off of BiPAP. Poor oral intake, renal function worsening. Sitter remains at bedside. Afebrile. 06/29/2020 100% BiPAP, maintaining O2 sats in the low 90s. Had a better night with less agitation, received Prolixin. Less confused this morning. Asking for ice chip. Complains of chronic back pain. Discussed CODE STATUS and patient wishes to remain a full code. Denies any chest pain, palpitations. BUN 43, creatinine 1.18. Received PICC line with TPN initiated yesterday. Blood sugars controlled. 07/02/2020 remains on 80% BiPAP, maintaining O2 sats in the high 80s. Minimal reserve-Unable to tolerate being off BiPAP mask . Receiving TPN via PICC line. Reporting that he is hungry.Calm, maintained on Zyprexa, prn Prolixin as per p sychiatry. Did not require Prolixin over the weekend. Sensorium significantly improved. Afebrile. D-dimer, LDH decreased, CRP increased. 07/03/2020 continue on 80% BiPAP, calm, maintaining O2 sats in the mid 90s. Hungry, asking for food, receiving TPN. Also asking for a writing board to co mmunicate easier. Objective - Vital Signs Vital signs: Vital Signs Temp 98.5 F 07/03/20 08:35 Pulse 56 L 07/03/20 08:35 Resp 18 07/03/20 08:35 BP 121/63 07/03/20 08:35 Pulse Ox 92 L 07/03/20 08:35 Intake & Output 07/02/20 07/03/20 07/03/20 18:59 06:59 18:59 Intake Total 400 570 Output Total 1200 1200 500 Balance -800 -630 -500 Weight 90 kg 89 kg Intake: IV 400 270 Mvi, Adult No.4 with Vit 400 270 K 10 ml Trace (Conc-1Ml/ Dose) 1 ml Sodium Acetate 28 meq Sodium Phosphate 6 mmol Calcium Gluconate 1 gm In Amino Acid 5%- D15w 1,000 ml @ 45 mls/hr IV .Q23H3M ROBERT Rx#: [id number] Intake, IV Titration 300 Amount Sodium Chloride 0.9% 1, 300 000 ml @ 50 mls/hr IV . Q20H ROBERT Rx#:[id number] Output: Urine 1200 1200 500 Other: Voiding Method Indwelling Catheter Indwelling Catheter Indwelling Catheter - Exam GENERAL: Sitting up in bed, no acute distress, wearing BiPAP CHEST EXAMINATION: Symmetrical expansion. Diminished, bibasilar crackles CARDIAC: Normal S1, S2 with no gallops. No murmurs ABDOMEN: Soft. Bowel sounds normal. No guarding. Positive bowel sounds Extremities: reveal no edema. No clubbing or cyanosis Neurologically: Cranial nerves II through XII grossly intact , no focal deficits.awake, alert, oriented x3. Moving all extremities. Skin: Warm and dry, no rashes. - Labs CBC & Chem 7: 07/02/20 07:00 07/03/20 07:20 Labs: Abnormal Lab Results - Last 24 Hours (Table) 07/02/20 07/02/20 07/03/20 Range/Units 11:57 17:50 00:00 Sodium (137-145) mmol/L Chloride (98-107) mmol/L Carbon Dioxide (22-30) mmol/L BUN (9-20) mg/dL Glucose (74-99) mg/dL POC Glucose (mg/dL) 169 H 198 H 152 H (75-99) mg/dL 07/03/20 07/03/20 Range/Units 05:57 07:20 Sodium 136 L (137-145) mmol/L Chloride 110 H (98-107) mmol/L Carbon Dioxide 20 L (22-30) mmol/L BUN 34 H (9-20) mg/dL Glucose 122 H (74-99) mg/dL POC Glucose (mg/dL) 142 H (75-99) mg/dL Microbiology - Last 24 Hours (Table) 06/27/20 14:31 Blood Culture - Preliminary Blood No Growth after 120 hours 06/27/20 13:05 Blood Culture - Preliminary Blood No Growth after 120 hours 06/26/20 12:44 Blood Culture - Final Blood No Growth after 144 hours Assessment and Plan Assessment: Sepsis secondary to Acute Covid -19 pneumonia Acute hypoxic respiratory failure secondary to the above Acute delirium, acute metabolic encephalopathy secondary to the above, possibly acute hypoxic encephalopathy, medication induced, steroids, benzos, opiates. Possible steroid psychosis. Significantly improved. Acute renal failure secondary to the above, improving Gastroesophageal reflux disease Chronic paroxysmal atrial fibrillation Chronic systolic CHF, EF 35-40% Coronary artery disease with history of NH,stent placement Former nicotine dependence Hypertension PICC line, TPN Plan: Continue on current medication regime ,monitoring and symptomatic treatment. Staff to supply patient writing board for ease of communication. Covid cocktail. TPN. Patient has minimal reserve off mask, consumed apple sauce this morning , and a few bites last night. Prognosis guarded given multiple complex medical issues. The impression and plan of care has been dictated as directed. : I performed a history and examination of this patient, discussed the same with the dictator. I agree with the dictator's note ,documented as a scribe. Any additional findings or plans will be noted.
[2020-07-03 17:32] LABS: Glucose,Whole Blood 219 mg/dL (75-99)
[2020-07-03] MEDS: SODIUM CHLORIDE 0.9% 1,000 ML IV SCH (17:36)
[2020-07-03] MEDS: ATORVASTATIN 10 MG TAB PO SCH (20:26)
[2020-07-03] MEDS: OLANZapine 7.5 MG TAB PO SCH (20:28)
[2020-07-04 00:40] LABS: Glucose,Whole Blood 225 mg/dL (75-99)
[2020-07-04] MEDS: INSULIN ASPART (NovoLOG) 100 UNIT/ML VIAL SQ SCH ×5 (00:42→23:23)
[2020-07-04] MEDS: METOPROLOL TARTRATE 25 MG TAB PO SCH ×3 (06:01→19:46)
[2020-07-04 06:04] LABS: Glucose,Whole Blood 130 mg/dL (75-99)
[2020-07-04] MEDS: ALBUTEROL HFA INHALER INHALATION PRN ×4 (08:32→20:28)
[2020-07-04] MEDS: DEXAMETHASONE SOD PHOSPHATE 10 MG/ML 1 ML VIAL IV SCH (09:15)
[2020-07-04] MEDS: ENOXAPARIN 60 MG/0.6 ML SYRINGE SQ SCH ×2 (09:15→19:46)
[2020-07-04] MEDS: FAMOTIDINE 20 MG TAB PO SCH ×2 (09:16→19:46)
[2020-07-04] MEDS: ASCORBIC ACID 500 MG TAB PO SCH ×2 (09:16→19:45)
[2020-07-04] MEDS: CHOLECALCIFEROL 25 MCG (1000 IU) TABLET PO SCH (09:16)
[2020-07-04] MEDS: ZINC SULFATE 220 MG CAP PO SCH (09:16)
[2020-07-04] MEDS: allopurinoL 100 MG TAB PO SCH (09:17)
[2020-07-04] MEDS: FAT EMULSION 20% 250 ML in EMPTY BAG 1 BAG IV SCH (09:17)
--- NOTE | 2020-07-04 09:44 | P.PN ---
Subjective Progress Note Date: 07/04/20 This is 70-year-old gentleman with past medical history of hypertension, and gastroesophageal reflux disease, CAD, [place], chronic back pain with history of laminectomy and multiple other medical issues presented to the ER with history of fevers ,worsening shortness of breath. Patient had seen his PCP last week on Thursday the and was recommended to go for his covid test. Patient apparently never went for his test. Yesterday completed a tele visit with his PCP, Dr. Encarnacion, referred to the ER. Patient tested positive for Covid infection while in the ER. On admission patient hypoxic with O2 sat of 80% on room air, required nonrebreather to maintain O2 sats in the 90s to 100%. Febrile on admission with temperature 99.9, normal WBC. D-dimer 2.41, sodium 132, BUN 52, creatinine 2.05, ferritin 1556.7 total bili elevated on admission now within normal limits, mildly elevated LFTs, LDH 2411currently 2018, CRP 158.4. Given patient's renal function and respiratory status unable to proceed with CTA of chest or VQ to rule out PE, currently on heparin drip. Chest x-ray reported partially consolidative opacity in the right lung base consistent with acute pneumonic process. Telemetry sinus rhythm with fusion complexes and PACs with left axis deviation. Denies chest pain, palpitations. 06/25/2020 during the night and again this morning patient removing his oxygen, desatting into the high 40s, turning blue, return to 15 L high flow in addition to nonrebreather, O2 sats initially in the high 80s. As the morning progressed, only maintaining O2 sats in the low 80s and transitioned to BiPAP mask. Chest x-ray reported diffuse bilateral patchy infiltrates stable. Denies chest pain, palpitations. Xanax administered for anxiety. Continue to develop more agitation attempting deplorable off mask. spanish speaking babysitter placed in room. Eventually patient required IV push Haldol. Patient now maintaining O2 sat of 94% on 100% BiPAP. Afebrile, WBC 14.8. Creatinine improving, 1.28. 06/26/2020 requiring 100% BiPAP to maintain O2 sats in the low 90s. T-max 102.6. WBC 14.9. Telemetry reporting Sinus Tachycardia with heart rates up into the 120s. Echo reported LV function 40-45% . Potassium 5.2, Renal function improving. Blood sugars controlled. Anxious, agitated, combative at times. Sitter remains at bedside. Receiving when necessary Haldol. Staff reports patient was asking for the bar mayandel, unclear if history of EtOH abuse, with questionable withdrawal. Psychiatry consult in place with recommendations pending. 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 Received Ativan 1 mg IV push. Agitation lessened. Staff reports carmen ent was choking on water. Spiking fevers, T-max 100.5, labs pending. Taking O2 sats of 90 on 60% BiPAP. 06/28/2020 rough night with increased agitation and confusion despite Prolixin and Zyprexa. Reevaluated by psychiatry this morning with medication changes noted and appreciated. Unable to wean from 100% BiPAP, maintaining O2 sats of mid 80s to low 90s. Speech therapy unable to conduct swallow evaluation as patient unable to tolerate being off of BiPAP. Poor oral intake, renal function worsening. Sitter remains at bedside. Afebrile. 06/29/2020 100% BiPAP, maintaining O2 sats in the low 90s. Had a better night with less agitation, received Prolixin. Less confused this morning. Asking for ice chip. Complains of chronic back pain. Discussed CODE STATUS and patient wishes to remain a full code. Denies any chest pain, palpitations. BUN 43, creatinine 1.18. Received PICC line with TPN initiated yesterday. Blood sugars controlled. 07/02/2020 remains on 80% BiPAP, maintaining O2 sats in the high 80s. Minimal reserve-Unable to tolerate being off BiPAP mask . Receiving TPN via PICC line. Reporting that he is hungry.Calm, maintained on Zyprexa, prn Prolixin as per p sychiatry. Did not require Prolixin over the weekend. Sensorium significantly improved. Afebrile. D-dimer, LDH decreased, CRP increased. 07/03/2020 continue on 80% BiPAP, calm, maintaining O2 sats in the mid 90s. Hungry, asking for food, receiving TPN. Also asking for a writing board to co mmunicate easier. 07/04/2020 significant improvement in sensorium .weaned off of BiPAP currently maintaining O2 sats in the high 80s to low 90s on both high flow nasal cannula/nonrebreather. Productive cough. Continues on TPN with bites of food intermittently. Blood sugars ranging from 130 to 225. Continue on Covid cocktail including Decadron. Denies chest pain, palpitations. Objective - Vital Signs Vital signs: Vital Signs Temp 98.9 F 07/04/20 08:00 Pulse 60 07/04/20 08:00 Resp 20 07/04/20 08:00 BP 135/69 07/04/20 08:00 Pulse Ox 92 L 07/04/20 08:00 Intake & Output 07/03/20 07/04/20 07/04/20 18:59 06:59 18:59 Intake Total 0 Output Total 1100 900 Balance -1100 -900 0 Weight 88 kg Intake: Oral 0 Output: Urine 1100 900 Other: Voiding Method Indwelling Catheter Indwelling Catheter Indwelling Catheter # Voids 3 - Exam GENERAL: Sitting up in bed, alert and oriented 3, no acute distress CHEST EXAMINATION: Symmetrical expansion. Diminished, bibasilar crackles CARDIAC: Normal S1, S2 with no gallops. No murmurs ABDOMEN: Soft. Bowel sounds normal. No guarding. Positive bowel sounds Extremities: reveal no edema. No clubbing or cyanosis Neurologically: Cranial nerves II through XII grossly intact , no focal deficits.awake, Moving all extremities. Skin: Warm and dry, no rashes. - Labs CBC & Chem 7: 07/02/20 07:00 07/03/20 07:20 Labs: Abnormal Lab Results - Last 24 Hours (Table) 07/03/20 07/03/20 07/04/20 Range/Units 12:03 17:24 00:39 POC Glucose (mg/dL) 190 H 219 H 225 H (75-99) mg/dL 07/04/20 Range/Units 06:01 POC Glucose (mg/dL) 130 H (75-99) mg/dL Microbiology - Last 24 Hours (Table) 06/27/20 14:31 Blood Culture - Final Blood No Growth after 144 hours 06/27/20 13:05 Blood Culture - Final Blood No Growth after 144 hours Assessment and Plan Assessment: Sepsis secondary to Acute Covid -19 pneumonia Acute hypoxic respiratory failure secondary to the above Acute delirium, acute metabolic encephalopathy secondary to the above, possibly acute hypoxic encephalopathy, medication induced, steroids, benzos, opiates. Possible steroid psychosis. Significantly improved. Acute renal failure secondary to the above, improving Hyperglycemia, steroid-induced, A1c pending Gastroesophageal reflux disease Chronic paroxysmal atrial fibrillation Chronic systolic CHF, EF 35-40% Coronary artery disease with history of [place],stent placement Former nicotine dependence Hypertension PICC line, TPN Plan: Continue on current medication regime ,monitoring and symptomatic treatment.Covid cocktail. TPN plus minimal oral intake. Hyperglycemic on steroids, low-dose Levemir initiated in addition to sliding scale. Close monitoring of Accu-Cheks. Prognosis guarded given multiple complex medical issues. The impression and plan of care has been dictated as directed. : I performed a history and examination of this patient, discussed the same with the dictator. I agree with the dictator's note ,documented as a scribe. Any additional findings or plans will be noted.
[2020-07-04] MEDS: SODIUM CHLORIDE 0.9% 1,000 ML IV SCH (09:47)
[2020-07-04 09:50] LABS: Basophils % (A) 0 %; Eosinophils # (A) 0.1 k/uL (0-0.7); Eosinophils % (A) 2 %; HCT 35.2 % (39.0-53.0); HGB 12.3 gm/dL (13.0-17.5); Lymphocytes # (A) 0.4 k/uL (1.0-4.8); Lymphocytes % (A) 6 %; MCH 30.6 pg (25.0-35.0); MCHC 34.8 g/dL (31.0-37.0); MCV 87.9 fL (80.0-100.0); Monocytes # (A) 0.4 k/uL (0-1.0); Monocytes % (A) 6 %; Neutrophils # (A) 5.9 k/uL (1.3-7.7); Neutrophils % (A) 86 %; Platelet Count 122 k/uL (150-450); RDW 12.5 % (11.5-15.5); WBC 6.8 k/uL (3.8-10.6)
[2020-07-04 10:03] LABS: African American GFR (CKD) >90 (>60 ml/min/1.73 sqM); Anion Gap 6 mmol/L; Blood Urea Nitrogen 34 mg/dL (9-20); Calcium 8.4 mg/dL (8.4-10.2); Carbon Dioxide 23 mmol/L (22-30); Chloride 106 mmol/L (98-107); Glucose 124 mg/dL (74-99); LDH 893 U/L (313-618); Magnesium 1.9 mg/dL (1.6-2.3); Non-African American GFR(CKD) 87 (>60 ml/min/1.73 sqM); Phosphorus 3.3 mg/dL (2.5-4.5); Potassium 3.9 mmol/L (3.5-5.1); Sodium 135 mmol/L (137-145); Triglycerides 94 mg/dL (<150)
[2020-07-04] MEDS: CALCIUM GLUCONATE IV SCH ×14 (10:21→17:35)
[2020-07-04] MEDS: SODIUM ACETATE IV SCH ×14 (10:21→17:35)
[2020-07-04] MEDS: SODIUM PHOSPHATE IV SCH ×14 (10:21→17:35)
[2020-07-04] MEDS: [UNRECOGNIZED DRUG - OTHER] IV SCH ×14 (10:21→17:35)
--- NOTE | 2020-07-04 11:47 | P.PN ---
Subjective Progress Note Date: 07/04/20 Acute hypoxemic respiratory failure secondary to CoVID 19 pneumonitis This is a 70-year-old gentleman that was seen in the emergency room on June 21. He was sent into the emergency room after being seen by his primary care doctor because of increasing shortness of breath, and concerns that the patient might have COVID 19. In addition to shortness of breath, the patient states he's been having lots of chest congestion, and is been coughing. When he coughs, it is painful in his chest. He has been sick for at least 2 weeks. In addition, he has muscle aches and joint aches, weakness and fatigue, and fever and chills. Currently, he is on a nonrebreather mask. Saturations are 92%. His primary care physician Dr. Vijay Encarnacion. He was not receiving any IV fluids. His primary medical problems include atrial fibrillation, coronary artery disease, hyperlipidemia, hypertension, gastroesophageal reflux disease, and prior myocardial infarction. The patient is a lifelong nontobacco user. White count is 4.9, hemoglobin 13.5, hematocrit 39.5, platelet count 92,000. PTT 61.3. D- dimer 2.41. Sodium 132, potassium 4.8, chloride 105, CO2 18, anion gap 9, BUN and creatinine 52 and 2.05. Calcium 7.6, AST 156, pO2 102, LDH 2018. C- reactive protein 158. I was not able to look at the chest x-ray. There is apparently a partially occlusive opacity at the right lung base consistent with acute pneumonic process. CT angiogram was not performed. Patient was reevaluated today on 06/23/2020, patient is feeling better today compared to how he felt yesterday. Patient is on high flow cannula running at 15 L/m, his O2 saturation is in the mid to high 80s he is on 100% FiO2 basically. His chest x-ray does not seem to be impressive, he does have consolidative opacity in the right lung base consistent with acute pneumonic process. Left lung is relatively clear. No significant pulmonary congestion. D-dimer is 2.56. Renal profile is not good enough for performing a CT angiogram of the chest, however I will recommend bilateral venous Doppler on this patient just to make sure we were not dealing with thromboembolic process. Again the patient tells me that his feeling better today compared to how he felt yesterday. Clinically improving. Patient was reevaluated today on 06/24/2020, patient remains on high flow oxygen. He is on 15 L high flow cannula, and his O2 saturations 92% at best. Patient continues to have shortness of breath, intermittent episodes of cough. He has no fever, his vital signs are relatively stable. During my evaluation, patient was constantly coughing. CBC is relatively normal electrolytes are normal BUN is 52 creatinine 1.45. LDH is elevated at 1586. Venous Doppler yesterday was negative. Chest x-ray on admission showed consolidation at the right lung base. I also suspect some consolidation at the left base/retrocardiac area. Progress note dated 06/25/2020. Currently, the patient was on BiPAP and on percent. Earlier today, he desaturated, and the nurses had a hard time getting his saturations back up. We did do a blood gas on the patient. PO2 was 63, pCO2 was 33, pH was 7.44. That was on 100% on the BiPAP. White count 14.8, hemoglobin hematocrit and platelet count all normal. Sodium 136, potassium 4.9, chlorides 107, CO2 20, anion gap 9, BUN 45, creatinine 1.28. Chest x-ray today showed diffuse bilateral patchy infiltrates which are stable. Yesterday, he was on high flow nasal O2 at 15 L/m. Progress note dated 06/26/2020. 70-year-old male, currently on BiPAP, at 16/6 and 80%. His saturations were good, so the FiO2 was dropped from 80% down to 60%. The patient appears to be doing reasonably well, although he did become somewhat tachypnea today when he was being evaluated here. Saturations are 90% on the 60% FiO2. Temperature is 98.1, and blood pressure 173/104. White count 14.9, and hemoglobin, hematocrit, and platelet count are all normal. Sodium 135, potassium 5.2, chlorides 106, CO2 18, anion gap 11, BUN 38, creatinine 1.23. Chest x-ray from June 25, shows bilateral patchy infiltrates. The patient is seen today 06/27/2020 in follow-up on the regular medical floor. He is currently resting fairly comfortably in bed. He is maintaining O2 saturation in the 90s on BiPAP 16/6 and 60% FiO2. 0.9 normal saline at 50 MLS per hour. Chest x-ray continues to show patchy bilateral infiltrates compatible with superimposed interstitial pneumonia. White count 8.3. Hemoglobin 13.4. Sodium 139. Potassium 5.6. Creatinine 1.13. He is continued on dexamethasone, Xarelto, vitamin supplements. The patient is seen today 06/28/2020 follow-up on the selective care unit. He is currently sitting up in bed. Remains on BiPAP 16/6 and 100% FiO2 maintaining O2 saturation the high 80s low 90s. He is 0.9 normal saline at 50 MLS per hour. He is now on Lovenox, dexamethasone, vitamin supplements. PICC line placed today. The patient is seen today 06/29/2020 follow-up on the selective care unit. He remains on BiPAP 16/6 and 100% FiO2 to maintain O2 saturations in the low 90s. He is afebrile. Currently being nourished with TPN via PICC line. 0.9 normal saline at 50 ML's per hour. Blood cultures reveal no growth. Sodium 140. Potassium 5.1. Creatinine 1.18. Glucose 125. He remains on dexamethasone, Lovenox, vitamin supplements. The patient is seen today 06/30/2020 follow-up on the selective care unit. He is currently resting fairly comfortably in bed. Remains on BiPAP 16/6 at 100% FiO2. He is being nourished with TPN and lipids via PICC line. 0.9 normal saline at 50 MLS per hour. He states he is still quite fatigued but improved today compared to yesterday. Cultures reveal no growth. D-dimer 10.2. Sodium 140. Potassium 5.2. Creatinine 0.99. LDH 1591. C-reactive protein 53.8. He remains on therapeutic Lovenox, dexamethasone, vitamin supplements. The patient is seen today 07/01/2020 in follow-up on the selective care unit. He is resting comfortably in bed. Continued on BiPAP 16/6 and 100% FiO2 to maintain O2 saturations in the high 80s low 90s. Chest x-ray continues to show scattered bilateral lung infiltrates which are stable compared to previous. Sodium 142. Potassium 4.8. Creatinine 0.95. Yesterday's d-dimer 10.23. Remains on therapeutic Lovenox at 100 mg subcu every 12 hours, Decadron, vitamin supplements. On today's evaluation of 07/02/2020 on seeing the patient for a follow-up. The patient remains on a BiPAP at a pressure of 16/6 cm of water and FiO2 of 80%. The patient is also receiving TPN for nutritional support. Therapeutic dose of Lovenox. His d-dimer was quite elevated at 10.2, normal renal function, normal electrolytes, CRP was elevated at 53 with an LDH level of 1591. Most recent chest x-ray from 07/01/2030 showing peripherally located infiltrates bilaterally. The patient is able to generate tidal volume of around 370 on the BiPAP machine. His extremities around 28. He is very weak. He cannot tolerate being off the BiPAP as the patient immediately desaturates even was taken pills or sips of water. He remains on TPN for nutritional support. His symptoms of his blood work today, he has white cell count of 9.8 with a hemoglobin of 12, sodium is 139 and a creatinine of 0.9. His current pulse ox on the percent on above-mentioned BiPAP setting with an FiO2 of 80%.Inflammatory markers are still elevated. D-dimer is at 5 and the patient also has an LDH level of 1009 with a CRP of 143.The chest x-ray from yesterday was showing worsening in the bilateral lower lobe pulmonary infiltrates especially in the right lower lobe. 07/03/2020 the patient remains on BiPAP at a pressure of 16/6 with an FiO2 of 80% and this is essentially the same setting as yesterday. His current vitals show a pulse ox of 94% on above-mentioned ventilator setting. He is afebrile. Breathing is nonlabored. He is still on TPN for nutritional support. His chest x-ray from 07/01/2020 showed peripheral pulmonary infiltrates consistent with Coumadin related pneumonia. No repeat x-rays since then. The patient remains considerably weak. His blood work from today showing no major electrolyte abnormalities. His LDH level was dropping yesterday down to 1009. He is still on Decadron 6 mg IV every 24 hours. He is also on Lovenox 45 mg subcu every 12 hours. On the BiPAP machine, degenerative tidal volumes around 400. 06/03/2020 this morning the patient is off the BiPAP and the patient is currently on a high flow oxygen 60 L with an FiO2 of 86%. The patient is also using 100% nonrebreather facemask. His current pulse ox is around 91%. He has developed skin breaks and ulceration from his BiPAP mask and is currently off the BiPAP. He is resting comfortably in bed. He is still on Lovenox 45 mg subcu every 12 hours. There is on steroids and the patient is receiving Decadron 6 mg IV every 24 hours. The patient is also on TPN for nutritional support. LDH level is at 893 which is lower than the CRP level is down to 50. He is quite weak and debilitated. His white cell count of 6.8 with a hemoglobin of 12.3. No fever. No other new complaints otherwise for now. Most recent d- dimer was at 5 from 07/02/2020. Objective - Vital Signs Vital signs: Vital Signs Temp 98.9 F 07/04/20 08:00 Pulse 60 07/04/20 08:00 Resp 20 07/04/20 08:00 BP 135/69 07/04/20 08:00 Pulse Ox 92 L 07/04/20 08:00 Intake & Output 07/03/20 07/04/20 07/04/20 18:59 06:59 18:59 Intake Total 0 Output Total 1100 900 Balance -1100 -900 0 Weight 88 kg Intake: Oral 0 Output: Urine 1100 900 Other: Voiding Method Indwelling Catheter Indwelling Catheter Indwelling Catheter # Voids 3 - Exam GENERAL EXAM: Alert, 70-year-old gentleman, on high flow oxygen 60 L with an FiO2 of 80% and the patient is also on the percent nonrebreather facemask. HEAD: Normocephalic. EYES: Normal reaction of pupils, equal size. NOSE: Clear with pink turbinates. Skin breaks over that was related to a BiPAP mask and the patient has developed a dry ulcer. THROAT: No erythema or exudates. NECK: No masses, no JVD. CHEST: No chest wall deformity. LUNGS: Equal air entry with crackles in the bilateral posterior bases. CVS: S1 and S2 normal with no audible murmur, regular rhythm. ABDOMEN: No hepatosplenomegaly, normal bowel sounds, no guarding or rigidity. SPINE: No scoliosis or deformity SKIN: No rashes CENTRAL NERVOUS SYSTEM: No focal deficits, tone is normal in all 4 extremities. EXTREMITIES: There is no peripheral edema. No clubbing, no cyanosis. Peripheral pulses are intact. - Labs CBC & Chem 7: 07/04/20 08:53 07/04/20 08:53 Labs: Abnormal Lab Results - Last 24 Hours (Table) 07/03/20 07/03/20 07/04/20 Range/Units 12:03 17:24 00:39 RBC (4.30-5.90) m/uL Hgb (13.0-17.5) gm/dL Hct (39.0-53.0) % Plt Count (150-450) k/uL Lymphocytes # (1.0-4.8) k/uL Sodium (137-145) mmol/L BUN (9-20) mg/dL Glucose (74-99) mg/dL POC Glucose (mg/dL) 190 H 219 H 225 H (75-99) mg/dL Lactate Dehydrogenase (313-618) U/L C-Reactive Protein (<10.0) mg/L 07/04/20 07/04/20 07/04/20 Range/Units 06:01 08:53 08:53 RBC 4.00 L (4.30-5.90) m/uL Hgb 12.3 L (13.0-17.5) gm/dL Hct 35.2 L (39.0-53.0) % Plt Count 122 L (150-450) k/uL Lymphocytes # 0.4 L (1.0-4.8) k/uL Sodium 135 L (137-145) mmol/L BUN 34 H (9-20) mg/dL Glucose 124 H (74-99) mg/dL POC Glucose (mg/dL) 130 H (75-99) mg/dL Lactate Dehydrogenase 893 H (313-618) U/L C-Reactive Protein 50.0 H (<10.0) mg/L Microbiology - Last 24 Hours (Table) 06/27/20 14:31 Blood Culture - Final Blood No Growth after 144 hours 06/27/20 13:05 Blood Culture - Final Blood No Growth after 144 hours Assessment and Plan Plan: 1 Acute hypoxemic respiratory failure secondary to CoVID 19 pneumonia/pneumonitis. Outside the window for Remdesivir, and the patient remains on Decadron. The patient is utilizing BiPAP on and off and he has developed some ulceration and with formation of his nose bridge and currently is on high flow oxygen at 60 L with an FiO2 of 80% and 100% nonrebreather facemask. Is able to tolerate this setting with a pulse ox in the low 90s. His chest x- ray findings are essentially stable. Inflammatory markers are gradually improving. He remains on TPN for nutritional support. 2 History of atrial fibrillation 3 Coronary disease with previous stent placement 4 Gastroesophageal reflux disease 6 Hypertension 7 Hyperlipidemia 8 Rheumatic fever, history of 9 History of gout 10 Acute kidney injury, recovered and the patient's renal function is also normalized Plan: Agree on high flow oxygen at 60 L with an FiO2 of 80% and 100% nonrebreather facemask Inflammatory markers were noted and the levels are improving chest x-ray is stable for now Being nourished with TPN via PICC line Remains on therapeutic Lovenox and drop the dose to 45 mg subcu every 12 hours Decadron, vitamin supplements, currently on Decadron 6 mg IV every 24 hours Titrate down the FiO2 as tolerated Allow oral intake of soup and some liquid material We'll continue to follow, Obviously condition is critical and the patient's prognosis poor baseline above-mentioned comorbidities.
[2020-07-04] MEDS: INSULIN DETEMIR (LEVEMIR) 100 UNIT/ML SYR SQ SCH (11:55)
[2020-07-04] MEDS: ACETAMINOPHEN TAB 325 MG TAB PO PRN (11:58)
[2020-07-04 12:27] LABS: Glucose,Whole Blood 126 mg/dL (75-99)
--- NOTE | 2020-07-04 15:59 | XR ---
EXAMINATION TYPE: XR chest 1V portable DATE OF EXAM: 07/04/2020 COMPARISON: Chest x-ray 07/03/2020 HISTORY: Covid, shortness of breath TECHNIQUE: Single frontal view of the chest is obtained. FINDINGS: Bilateral airspace disease is again noted. No evident pneumothorax or pleural effusion. Th ere is a left-sided PICC line the distal tip overlying superior vena cava. Cardiac mediastinal silhou ette is stable. Interstitium is prominent. There are overlying artifacts. IMPRESSION: Correlate for pneumonia.
[2020-07-04 16:57] LABS: Glucose,Whole Blood 194 mg/dL (75-99)
[2020-07-04] MEDS: ATORVASTATIN 10 MG TAB PO SCH (19:45)
[2020-07-04] MEDS: GABAPENTIN 100 MG CAP PO PRN (19:46)
[2020-07-04] MEDS: OLANZapine 7.5 MG TAB PO SCH (20:10)
[2020-07-04 21:02] LABS: Hemoglobin A1C 6.3 % (4.0-6.0)
[2020-07-04 23:09] LABS: Glucose,Whole Blood 198 mg/dL (75-99)
[2020-07-05] MEDS: SODIUM PHOSPHATE IV SCH ×14 (03:28→17:28)
[2020-07-05] MEDS: [UNRECOGNIZED DRUG - OTHER] IV SCH ×7 (03:28)
[2020-07-05] MEDS: CALCIUM GLUCONATE IV SCH ×14 (03:28→17:28)
[2020-07-05] MEDS: SODIUM ACETATE IV SCH ×14 (03:28→17:28)
[2020-07-05] MEDS: SODIUM CHLORIDE 0.9% 1,000 ML IV SCH (03:29)
[2020-07-05 05:58] LABS: Glucose,Whole Blood 152 mg/dL (75-99)
[2020-07-05] MEDS: INSULIN DETEMIR (LEVEMIR) 100 UNIT/ML SYR SQ SCH (06:19)
[2020-07-05] MEDS: INSULIN ASPART (NovoLOG) 100 UNIT/ML VIAL SQ SCH ×3 (06:20→19:11)
[2020-07-05] MEDS: ENOXAPARIN 60 MG/0.6 ML SYRINGE SQ SCH ×2 (09:11→21:43)
[2020-07-05] MEDS: FAT EMULSION 20% 250 ML in EMPTY BAG 1 BAG IV SCH (09:12)
[2020-07-05] MEDS: ASCORBIC ACID 500 MG TAB PO SCH ×2 (09:12→21:38)
[2020-07-05] MEDS: METOPROLOL TARTRATE 25 MG TAB PO SCH ×2 (09:12→21:39)
[2020-07-05] MEDS: FAMOTIDINE 20 MG TAB PO SCH ×2 (09:12→21:39)
[2020-07-05] MEDS: CHOLECALCIFEROL 25 MCG (1000 IU) TABLET PO SCH (09:12)
[2020-07-05] MEDS: allopurinoL 100 MG TAB PO SCH (09:12)
[2020-07-05] MEDS: ZINC SULFATE 220 MG CAP PO SCH (09:12)
[2020-07-05] MEDS: ACETAMINOPHEN TAB 325 MG TAB PO PRN (09:13)
[2020-07-05] MEDS: DEXAMETHASONE SOD PHOSPHATE 10 MG/ML 1 ML VIAL IV SCH (09:14)
[2020-07-05] MEDS: ALBUTEROL HFA INHALER INHALATION PRN ×4 (09:34→19:08)
[2020-07-05 10:13] LABS: Basophils % (A) 0 %; Eosinophils # (A) 0.1 k/uL (0-0.7); Eosinophils % (A) 2 %; HCT 36.4 % (39.0-53.0); HGB 12.8 gm/dL (13.0-17.5); Lymphocytes # (A) 0.4 k/uL (1.0-4.8); Lymphocytes % (A) 4 %; MCH 31.1 pg (25.0-35.0); MCHC 35.2 g/dL (31.0-37.0); MCV 88.3 fL (80.0-100.0); Mean Platelet Volume 9.6; Monocytes # (A) 0.4 k/uL (0-1.0); Monocytes % (A) 5 %; Neutrophils # (A) 7.7 k/uL (1.3-7.7); Neutrophils % (A) 89 %; Platelet Count 126 k/uL (150-450); RBC 4.12 m/uL (4.30-5.90); RDW 12.8 % (11.5-15.5); WBC 8.6 k/uL (3.8-10.6)
--- NOTE | 2020-07-05 11:27 | P.PN ---
Subjective Progress Note Date: 07/05/20 Acute hypoxemic respiratory failure secondary to CoVID 19 pneumonitis This is a 70-year-old gentleman that was seen in the emergency room on June 21. He was sent into the emergency room after being seen by his primary care doctor because of increasing shortness of breath, and concerns that the patient might have COVID 19. In addition to shortness of breath, the patient states he's been having lots of chest congestion, and is been coughing. When he coughs, it is painful in his chest. He has been sick for at least 2 weeks. In addition, he has muscle aches and joint aches, weakness and fatigue, and fever and chills. Currently, he is on a nonrebreather mask. Saturations are 92%. His primary care physician Dr. Vijay Encarnacion. He was not receiving any IV fluids. His primary medical problems include atrial fibrillation, coronary artery disease, hyperlipidemia, hypertension, gastroesophageal reflux disease, and prior myocardial infarction. The patient is a lifelong nontobacco user. White count is 4.9, hemoglobin 13.5, hematocrit 39.5, platelet count 92,000. PTT 61.3. D- dimer 2.41. Sodium 132, potassium 4.8, chloride 105, CO2 18, anion gap 9, BUN and creatinine 52 and 2.05. Calcium 7.6, AST 156, pO2 102, LDH 2018. C- reactive protein 158. I was not able to look at the chest x-ray. There is apparently a partially occlusive opacity at the right lung base consistent with acute pneumonic process. CT angiogram was not performed. Patient was reevaluated today on 06/23/2020, patient is feeling better today compared to how he felt yesterday. Patient is on high flow cannula running at 15 L/m, his O2 saturation is in the mid to high 80s he is on 100% FiO2 basically. His chest x-ray does not seem to be impressive, he does have consolidative opacity in the right lung base consistent with acute pneumonic process. Left lung is relatively clear. No significant pulmonary congestion. D-dimer is 2.56. Renal profile is not good enough for performing a CT angiogram of the chest, however I will recommend bilateral venous Doppler on this patient just to make sure we were not dealing with thromboembolic process. Again the patient tells me that his feeling better today compared to how he felt yesterday. Clinically improving. Patient was reevaluated today on 06/24/2020, patient remains on high flow oxygen. He is on 15 L high flow cannula, and his O2 saturations 92% at best. Patient continues to have shortness of breath, intermittent episodes of cough. He has no fever, his vital signs are relatively stable. During my evaluation, patient was constantly coughing. CBC is relatively normal electrolytes are normal BUN is 52 creatinine 1.45. LDH is elevated at 1586. Venous Doppler yesterday was negative. Chest x-ray on admission showed consolidation at the right lung base. I also suspect some consolidation at the left base/retrocardiac area. Progress note dated 06/25/2020. Currently, the patient was on BiPAP and on percent. Earlier today, he desaturated, and the nurses had a hard time getting his saturations back up. We did do a blood gas on the patient. PO2 was 63, pCO2 was 33, pH was 7.44. That was on 100% on the BiPAP. White count 14.8, hemoglobin hematocrit and platelet count all normal. Sodium 136, potassium 4.9, chlorides 107, CO2 20, anion gap 9, BUN 45, creatinine 1.28. Chest x-ray today showed diffuse bilateral patchy infiltrates which are stable. Yesterday, he was on high flow nasal O2 at 15 L/m. Progress note dated 06/26/2020. 70-year-old male, currently on BiPAP, at 16/6 and 80%. His saturations were good, so the FiO2 was dropped from 80% down to 60%. The patient appears to be doing reasonably well, although he did become somewhat tachypnea today when he was being evaluated here. Saturations are 90% on the 60% FiO2. Temperature is 98.1, and blood pressure 173/104. White count 14.9, and hemoglobin, hematocrit, and platelet count are all normal. Sodium 135, potassium 5.2, chlorides 106, CO2 18, anion gap 11, BUN 38, creatinine 1.23. Chest x-ray from June 25, shows bilateral patchy infiltrates. The patient is seen today 06/27/2020 in follow-up on the regular medical floor. He is currently resting fairly comfortably in bed. He is maintaining O2 saturation in the 90s on BiPAP 16/6 and 60% FiO2. 0.9 normal saline at 50 MLS per hour. Chest x-ray continues to show patchy bilateral infiltrates compatible with superimposed interstitial pneumonia. White count 8.3. Hemoglobin 13.4. Sodium 139. Potassium 5.6. Creatinine 1.13. He is continued on dexamethasone, Xarelto, vitamin supplements. The patient is seen today 06/28/2020 follow-up on the selective care unit. He is currently sitting up in bed. Remains on BiPAP 16/6 and 100% FiO2 maintaining O2 saturation the high 80s low 90s. He is 0.9 normal saline at 50 MLS per hour. He is now on Lovenox, dexamethasone, vitamin supplements. PICC line placed today. The patient is seen today 06/29/2020 follow-up on the selective care unit. He remains on BiPAP 16/6 and 100% FiO2 to maintain O2 saturations in the low 90s. He is afebrile. Currently being nourished with TPN via PICC line. 0.9 normal saline at 50 ML's per hour. Blood cultures reveal no growth. Sodium 140. Potassium 5.1. Creatinine 1.18. Glucose 125. He remains on dexamethasone, Lovenox, vitamin supplements. The patient is seen today 06/30/2020 follow-up on the selective care unit. He is currently resting fairly comfortably in bed. Remains on BiPAP 16/6 at 100% FiO2. He is being nourished with TPN and lipids via PICC line. 0.9 normal saline at 50 MLS per hour. He states he is still quite fatigued but improved today compared to yesterday. Cultures reveal no growth. D-dimer 10.2. Sodium 140. Potassium 5.2. Creatinine 0.99. LDH 1591. C-reactive protein 53.8. He remains on therapeutic Lovenox, dexamethasone, vitamin supplements. The patient is seen today 07/01/2020 in follow-up on the selective care unit. He is resting comfortably in bed. Continued on BiPAP 16/6 and 100% FiO2 to maintain O2 saturations in the high 80s low 90s. Chest x-ray continues to show scattered bilateral lung infiltrates which are stable compared to previous. Sodium 142. Potassium 4.8. Creatinine 0.95. Yesterday's d-dimer 10.23. Remains on therapeutic Lovenox at 100 mg subcu every 12 hours, Decadron, vitamin supplements. On today's evaluation of 07/02/2020 on seeing the patient for a follow-up. The patient remains on a BiPAP at a pressure of 16/6 cm of water and FiO2 of 80%. The patient is also receiving TPN for nutritional support. Therapeutic dose of Lovenox. His d-dimer was quite elevated at 10.2, normal renal function, normal electrolytes, CRP was elevated at 53 with an LDH level of 1591. Most recent chest x-ray from 07/01/2030 showing peripherally located infiltrates bilaterally. The patient is able to generate tidal volume of around 370 on the BiPAP machine. His extremities around 28. He is very weak. He cannot tolerate being off the BiPAP as the patient immediately desaturates even was taken pills or sips of water. He remains on TPN for nutritional support. His symptoms of his blood work today, he has white cell count of 9.8 with a hemoglobin of 12, sodium is 139 and a creatinine of 0.9. His current pulse ox on the percent on above-mentioned BiPAP setting with an FiO2 of 80%.Inflammatory markers are still elevated. D-dimer is at 5 and the patient also has an LDH level of 1009 with a CRP of 143.The chest x-ray from yesterday was showing worsening in the bilateral lower lobe pulmonary infiltrates especially in the right lower lobe. 07/03/2020 the patient remains on BiPAP at a pressure of 16/6 with an FiO2 of 80% and this is essentially the same setting as yesterday. His current vitals show a pulse ox of 94% on above-mentioned ventilator setting. He is afebrile. Breathing is nonlabored. He is still on TPN for nutritional support. His chest x-ray from 07/01/2020 showed peripheral pulmonary infiltrates consistent with Coumadin related pneumonia. No repeat x-rays since then. The patient remains considerably weak. His blood work from today showing no major electrolyte abnormalities. His LDH level was dropping yesterday down to 1009. He is still on Decadron 6 mg IV every 24 hours. He is also on Lovenox 45 mg subcu every 12 hours. On the BiPAP machine, degenerative tidal volumes around 400. 06/03/2020 this morning the patient is off the BiPAP and the patient is currently on a high flow oxygen 60 L with an FiO2 of 86%. The patient is also using 100% nonrebreather facemask. His current pulse ox is around 91%. He has developed skin breaks and ulceration from his BiPAP mask and is currently off the BiPAP. He is resting comfortably in bed. He is still on Lovenox 45 mg subcu every 12 hours. There is on steroids and the patient is receiving Decadron 6 mg IV every 24 hours. The patient is also on TPN for nutritional support. LDH level is at 893 which is lower than the CRP level is down to 50. He is quite weak and debilitated. His white cell count of 6.8 with a hemoglobin of 12.3. No fever. No other new complaints otherwise for now. Most recent d- dimer was at 5 from 07/02/2020. 07/05/2020, the patient remains on BiPAP. The patient was on high flow oxygen yesterday and desaturated and he decompensated and he was switched to a BiPAP at a pressure of 16/6 with an FiO2 of 80%. This occurred when the patient on was trying to have some breakfast earlier this morning. He was on high flow oxygen. He dropped his oxygen saturations significantly and he was very slow in recovery. At that point, he was switched to a BiPAP. His current pulse ox is 90%. He is quite lethargic and somnolent. He is unable to eat and he has TPN for nutritional support. He continues to be on Decadron 6 mg IV every 24 hours. He is also on Lovenox 45 mg subcutaneously every 12 hours. On his blood work, he had a d-dimer of 6.49 which is slightly higher than the white cell count is at 8.6 with a hemoglobin of 12.8. TPN is current to being administered for nutritional support. No other significant events , otherwise his night was uneventful.. The PICC line is in the left upper extremity. The patient also has a Kwan catheter in place. Each in relating a tidal volume of 550 and his respiratory rate is currently in the mid 30s. He seems to be quite comfortable. He is however lethargic. Objective - Vital Signs Vital signs: Vital Signs Temp 98.8 F 07/05/20 03:48 Pulse 64 07/05/20 03:48 Resp 22 07/05/20 03:48 BP 130/70 07/05/20 03:48 Pulse Ox 90 L 07/05/20 05:23 Intake & Output 07/04/20 07/05/20 07/05/20 18:59 06:59 18:59 Intake Total 1456 240 Output Total 600 1275 Balance 856 -1035 Weight 87.5 kg Intake: Intake, IV Titration 1036 Amount Mvi, Adult No.4 with Vit 1036 K 10 ml Trace (Conc-1Ml/ Dose) 1 ml Sodium Acetate 20 meq Sodium Phosphate 9 mmol Calcium Gluconate 1 gm Magnesium Sulfate gm 1 gm In Amino Acid 5%- D15w 1,000 ml @ 85 mls/hr IV .[facility] Rx#: [id number] Oral 420 240 Output: Urine 600 1275 Other: Voiding Method Indwelling Catheter Indwelling Catheter - Exam GENERAL EXAM: Alert, 70-year-old gentleman, on BIPAP 16/6 with fio2 90% HEAD: Normocephalic. EYES: Normal reaction of pupils, equal size. NOSE: Clear with pink turbinates. Skin breaks over that was related to a BiPAP mask and the patient has developed a dry ulcer. THROAT: No erythema or exudates. NECK: No masses, no JVD. CHEST: No chest wall deformity. LUNGS: Equal air entry with crackles in the bilateral posterior bases. CVS: S1 and S2 normal with no audible murmur, regular rhythm. ABDOMEN: No hepatosplenomegaly, normal bowel sounds, no guarding or rigidity. SPINE: No scoliosis or deformity SKIN: No rashes CENTRAL NERVOUS SYSTEM: No focal deficits, tone is normal in all 4 extremities. EXTREMITIES: There is no peripheral edema. No clubbing, no cyanosis. Peripheral pulses are intact. - Labs CBC & Chem 7: 07/05/20 09:02 07/04/20 08:53 Labs: Abnormal Lab Results - Last 24 Hours (Table) 07/04/20 07/04/20 07/04/20 Range/Units 08:53 12:16 16:52 RBC (4.30-5.90) m/uL Hgb (13.0-17.5) gm/dL Hct (39.0-53.0) % Plt Count (150-450) k/uL Lymphocytes # (1.0-4.8) k/uL D-Dimer (<0.60) mg/L FEU POC Glucose (mg/dL) 126 H 194 H (75-99) mg/dL Hemoglobin A1c 6.3 H (4.0-6.0) % 07/04/20 07/05/20 07/05/20 Range/Units 23:07 05:57 09:02 RBC 4.12 L (4.30-5.90) m/uL Hgb 12.8 L (13.0-17.5) gm/dL Hct 36.4 L (39.0-53.0) % Plt Count 126 L (150-450) k/uL Lymphocytes # 0.4 L (1.0-4.8) k/uL D-Dimer (<0.60) mg/L FEU POC Glucose (mg/dL) 198 H 152 H (75-99) mg/dL Hemoglobin A1c (4.0-6.0) % 07/05/20 Range/Units 09:02 RBC (4.30-5.90) m/uL Hgb (13.0-17.5) gm/dL Hct (39.0-53.0) % Plt Count (150-450) k/uL Lymphocytes # (1.0-4.8) k/uL D-Dimer 6.49 H (<0.60) mg/L FEU POC Glucose (mg/dL) (75-99) mg/dL Hemoglobin A1c (4.0-6.0) % Assessment and Plan Plan: 1 Acute hypoxemic respiratory failure secondary to CoVID 19 pneumonia/pneumoniti s. Outside the window for Remdesivir, and the patient remains on Decadron. The patient is utilizing BiPAP this morning at a pressure of 16/6 with an FiO2 of 80%. He decompensated and he had oxygen desaturation while being on high flow oxygen at 60 L earlier this morning. As such, the patient was switched to BiPAP. She is a much more comfortable and his oxidation is improved while on BiPAP. He is awake. Is lethargic. Is weak. He remains on TPN for nutritional support. 2 History of atrial fibrillation 3 Coronary disease with previous stent placement 4 Gastroesophageal reflux disease 6 Hypertension 7 Hyperlipidemia 8 Rheumatic fever, history of 9 History of gout 10 Acute kidney injury, recovered and the patient's renal function is also normalized Plan: Continue BiPAP for today. Inflammatory markers were noted and the levels are improving The d-dimer is slightly elevated and the patient is currently on Lovenox. chest x-ray is stable for now Being nourished with TPN via PICC line Remains on therapeutic Lovenox and drop the dose to 45 mg subcu every 12 hours Decadron, vitamin supplements, currently on Decadron 6 mg IV every 24 hours Titrate down the FiO2 as tolerated Keep nothing by mouth for now and continue with TPN We'll continue to follow, Obviously condition is critical and the patient's prognosis poor baseline above-mentioned comorbidities.
[2020-07-05 12:06] LABS: Glucose,Whole Blood 180 mg/dL (75-99)
[2020-07-05 12:10] LABS: African American GFR (CKD) >90 (>60 ml/min/1.73 sqM); Anion Gap 4 mmol/L; Blood Urea Nitrogen 32 mg/dL (9-20); C Reactive Protein 49.5 mg/L (<10.0); Calcium 8.5 mg/dL (8.4-10.2); Carbon Dioxide 23 mmol/L (22-30); Chloride 105 mmol/L (98-107); Glucose 115 mg/dL (74-99); Magnesium 1.8 mg/dL (1.6-2.3); Non-African American GFR(CKD) >90 (>60 ml/min/1.73 sqM); Phosphorus 2.8 mg/dL (2.5-4.5); Sodium 132 mmol/L (137-145)
[2020-07-05 12:47] LABS: LDH 1187 U/L (313-618)
--- NOTE | 2020-07-05 15:27 | P.PN ---
Subjective Progress Note Date: 07/05/20 This is 70-year-old gentleman with past medical history of hypertension, and gastroesophageal reflux disease, CAD, KS, chronic back pain with history of laminectomy and multiple other medical issues presented to the ER with history of fevers ,worsening shortness of breath. Patient had seen his PCP last week on Thursday the and was recommended to go for his covid test. Patient apparently never went for his test. Yesterday completed a tele visit with his PCP, Dr. Encarnacion, referred to the ER. Patient tested positive for Covid infection while in the ER. On admission patient hypoxic with O2 sat of 80% on room air, required nonrebreather to maintain O2 sats in the 90s to 100%. Febrile on admission with temperature 99.9, normal WBC. D-dimer 2.41, sodium 132, BUN 52, creatinine 2.05, ferritin 1556.7 total bili elevated on admission now within normal limits, mildly elevated LFTs, LDH 2411currently 2018, CRP 158.4. Given patient's renal function and respiratory status unable to proceed with CTA of chest or VQ to rule out PE, currently on heparin drip. Chest x-ray reported partially consolidative opacity in the right lung base consistent with acute pneumonic process. Telemetry sinus rhythm with fusion complexes and PACs with left axis deviation. Denies chest pain, palpitations. 06/25/2020 during the night and again this morning patient removing his oxygen, desatting into the high 40s, turning blue, return to 15 L high flow in addition to nonrebreather, O2 sats initially in the high 80s. As the morning progressed, only maintaining O2 sats in the low 80s and transitioned to BiPAP mask. Chest x-ray reported diffuse bilateral patchy infiltrates stable. Denies chest pain, palpitations. Xanax administered for anxiety. Continue to develop more agitation attempting deplorable off mask. poultryman placed in room. Eventually patient required IV push Haldol. Patient now maintaining O2 sat of 94% on 100% BiPAP. Afebrile, WBC 14.8. Creatinine improving, 1.28. 06/26/2020 requiring 100% BiPAP to maintain O2 sats in the low 90s. T-max 102.6. WBC 14.9. Telemetry reporting Sinus Tachycardia with heart rates up into the 120s. Echo reported LV function 40-45% . Potassium 5.2, Renal function improving. Blood sugars controlled. Anxious, agitated, combative at times. Sitter remains at bedside. Receiving when necessary Haldol. Staff reports patient was asking for the bar mayandel, unclear if history of EtOH abuse, with questionable withdrawal. Psychiatry consult in place with recommendations pending. 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 Received Ativan 1 mg IV push. Agitation lessened. Staff reports carmen ent was choking on water. Spiking fevers, T-max 100.5, labs pending. Taking O2 sats of 90 on 60% BiPAP. 06/28/2020 rough night with increased agitation and confusion despite Prolixin and Zyprexa. Reevaluated by psychiatry this morning with medication changes noted and appreciated. Unable to wean from 100% BiPAP, maintaining O2 sats of mid 80s to low 90s. Speech therapy unable to conduct swallow evaluation as patient unable to tolerate being off of BiPAP. Poor oral intake, renal function worsening. Sitter remains at bedside. Afebrile. 06/29/2020 100% BiPAP, maintaining O2 sats in the low 90s. Had a better night with less agitation, received Prolixin. Less confused this morning. Asking for ice chip. Complains of chronic back pain. Discussed CODE STATUS and patient wishes to remain a full code. Denies any chest pain, palpitations. BUN 43, creatinine 1.18. Received PICC line with TPN initiated yesterday. Blood sugars controlled. 07/02/2020 remains on 80% BiPAP, maintaining O2 sats in the high 80s. Minimal reserve-Unable to tolerate being off BiPAP mask . Receiving TPN via PICC line. Reporting that he is hungry.Calm, maintained on Zyprexa, prn Prolixin as per p sychiatry. Did not require Prolixin over the weekend. Sensorium significantly improved. Afebrile. D-dimer, LDH decreased, CRP increased. 07/03/2020 continue on 80% BiPAP, calm, maintaining O2 sats in the mid 90s. Hungry, asking for food, receiving TPN. Also asking for a writing board to co mmunicate easier. 07/04/2020 significant improvement in sensorium .weaned off of BiPAP currently maintaining O2 sats in the high 80s to low 90s on both high flow nasal cannula/nonrebreather. Productive cough. Continues on TPN with bites of food intermittently. Blood sugars ranging from 130 to 225. Continue on Covid cocktail including Decadron. Denies chest pain, palpitations. 07/05/2020 Staff reports patient desatted down into the 70s this morning within minutes of taken off mask (patient had been on 60L high flow nasal cannula and nonrebreather )to have a few bites of oatmeal. Slow recovery and 80% BiPAP mask reapplied. Receiving TPN via PICC line as well. Continues on Covid cocktail. Blood sugars better controlled on low-dose Levemir insulin. T-max 100.5, WBC 8.6. Objective - Vital Signs Vital signs: Vital Signs Temp 99.0 F 07/05/20 08:00 Pulse 77 07/05/20 08:00 Resp 36 H 07/05/20 08:00 BP 186/81 07/05/20 08:00 Pulse Ox 79 L 07/05/20 08:00 Intake & Output 07/04/20 07/05/20 07/05/20 18:59 06:59 18:59 Intake Total 1456 240 480 Output Total 600 1275 450 Balance 856 -1035 30 Weight 87.5 kg 87.5 kg Intake: Intake, IV Titration 1036 Amount Mvi, Adult No.4 with Vit 1036 K 10 ml Trace (Conc-1Ml/ Dose) 1 ml Sodium Acetate 20 meq Sodium Phosphate 9 mmol Calcium Gluconate 1 gm Magnesium Sulfate gm 1 gm In Amino Acid 5%- D15w 1,000 ml @ 85 mls/hr IV .[facility] Rx#: [id number] Oral 420 240 480 Output: Urine 600 1275 450 Other: Voiding Method Indwelling Catheter Indwelling Catheter Indwelling Catheter - Exam GENERAL: Sitting up in bed, alert and oriented 3, no acute distress, tired appearing CHEST EXAMINATION: Symmetrical expansion. Diminished, bibasilar crackles CARDIAC: Normal S1, S2 with no gallops. No murmurs ABDOMEN: Soft. Bowel sounds normal. No guarding. Positive bowel sounds Extremities: reveal no edema. No clubbing or cyanosis Neurologically: Cranial nerves II through XII grossly intact , no focal deficits, Moving all extremities. Skin: Warm and dry, no rashes. - Labs CBC & Chem 7: 07/05/20 09:02 07/05/20 09:02 Labs: Abnormal Lab Results - Last 24 Hours (Table) 07/04/20 07/04/20 07/04/20 Range/Units 08:53 16:52 23:07 RBC (4.30-5.90) m/uL Hgb (13.0-17.5) gm/dL Hct (39.0-53.0) % Plt Count (150-450) k/uL Lymphocytes # (1.0-4.8) k/uL D-Dimer (<0.60) mg/L FEU Sodium (137-145) mmol/L BUN (9-20) mg/dL Glucose (74-99) mg/dL POC Glucose (mg/dL) 194 H 198 H (75-99) mg/dL Hemoglobin A1c 6.3 H (4.0-6.0) % Lactate Dehydrogenase (313-618) U/L C-Reactive Protein (<10.0) mg/L 07/05/20 07/05/20 07/05/20 Range/Units 05:57 09:02 09:02 RBC 4.12 L (4.30-5.90) m/uL Hgb 12.8 L (13.0-17.5) gm/dL Hct 36.4 L (39.0-53.0) % Plt Count 126 L (150-450) k/uL Lymphocytes # 0.4 L (1.0-4.8) k/uL D-Dimer (<0.60) mg/L FEU Sodium 132 L (137-145) mmol/L BUN 32 H (9-20) mg/dL Glucose 115 H (74-99) mg/dL POC Glucose (mg/dL) 152 H (75-99) mg/dL Hemoglobin A1c (4.0-6.0) % Lactate Dehydrogenase 1187 H (313-618) U/L C-Reactive Protein 49.5 H (<10.0) mg/L 07/05/20 07/05/20 Range/Units 09:02 12:05 RBC (4.30-5.90) m/uL Hgb (13.0-17.5) gm/dL Hct (39.0-53.0) % Plt Count (150-450) k/uL Lymphocytes # (1.0-4.8) k/uL D-Dimer 6.49 H (<0.60) mg/L FEU Sodium (137-145) mmol/L BUN (9-20) mg/dL Glucose (74-99) mg/dL POC Glucose (mg/dL) 180 H (75-99) mg/dL Hemoglobin A1c (4.0-6.0) % Lactate Dehydrogenase (313-618) U/L C-Reactive Protein (<10.0) mg/L Assessment and Plan Assessment: Sepsis secondary to Acute Covid -19 pneumonia Acute hypoxic respiratory failure secondary to the above Acute delirium, acute metabolic encephalopathy secondary to the above, possibly acute hypoxic encephalopathy, medication induced, steroids, benzos, opiates. Possible steroid psychosis. Significantly improved. Acute renal failure secondary to the above, improving Hyperglycemia, steroid-induced, A1c pending Gastroesophageal reflux disease Chronic paroxysmal atrial fibrillation Chronic systolic CHF, EF 35-40% Coronary artery disease with history of KS,stent placement Former nicotine dependence Hypertension PICC line, TPN Plan: Continue on current medication regime ,monitoring and symptomatic treatment.Covid cocktail. TPN. Staff will have significant other visit from [facility]. Prognosis guarded given multiple complex medical issues. The impression and plan of care has been dictated as directed. : I performed a history and examination of this patient, discussed the same with the dictator. I agree with the dictator's note ,documented as a scribe. Any additional findings or plans will be noted.
[2020-07-05] MEDS: [UNRECOGNIZED DRUG - OTHER] IV SCH ×7 (17:28)
[2020-07-05 18:06] LABS: Glucose,Whole Blood 215 mg/dL (75-99)
[2020-07-05 19:20] LABS: Glucose,Whole Blood 195 mg/dL (75-99)
[2020-07-05] MEDS: ATORVASTATIN 10 MG TAB PO SCH (21:39)
[2020-07-05] MEDS: OLANZapine 7.5 MG TAB PO SCH (21:40)
[2020-07-06 00:27] LABS: Glucose,Whole Blood 171 mg/dL (75-99)
[2020-07-06] MEDS: INSULIN ASPART (NovoLOG) 100 UNIT/ML VIAL SQ SCH ×4 (02:26→17:18)
[2020-07-06 06:16] LABS: Glucose,Whole Blood 118 mg/dL (75-99)
[2020-07-06] MEDS: CALCIUM GLUCONATE IV SCH ×14 (06:21→18:36)
[2020-07-06] MEDS: [UNRECOGNIZED DRUG - OTHER] IV SCH ×14 (06:21→18:36)
[2020-07-06] MEDS: SODIUM ACETATE IV SCH ×14 (06:21→18:36)
[2020-07-06] MEDS: SODIUM PHOSPHATE IV SCH ×14 (06:21→18:36)
[2020-07-06] MEDS: INSULIN DETEMIR (LEVEMIR) 100 UNIT/ML SYR SQ SCH (06:22)
[2020-07-06] MEDS: FAMOTIDINE 20 MG TAB PO SCH ×2 (07:58→21:00)
[2020-07-06] MEDS: METOPROLOL TARTRATE 25 MG TAB PO SCH (07:58)
[2020-07-06] MEDS: ZINC SULFATE 220 MG CAP PO SCH (07:58)
[2020-07-06] MEDS: CHOLECALCIFEROL 25 MCG (1000 IU) TABLET PO SCH (07:58)
[2020-07-06] MEDS: ASCORBIC ACID 500 MG TAB PO SCH ×2 (07:58→21:00)
[2020-07-06] MEDS: allopurinoL 100 MG TAB PO SCH (07:58)
[2020-07-06] MEDS: DEXAMETHASONE SOD PHOSPHATE 10 MG/ML 1 ML VIAL IV SCH (07:59)
[2020-07-06] MEDS: ENOXAPARIN 60 MG/0.6 ML SYRINGE SQ SCH ×2 (07:59→21:01)
[2020-07-06 08:40] LABS: African American GFR (CKD) >90 (>60 ml/min/1.73 sqM); Anion Gap 3 mmol/L; Blood Urea Nitrogen 31 mg/dL (9-20); Calcium 8.4 mg/dL (8.4-10.2); Carbon Dioxide 26 mmol/L (22-30); Chloride 106 mmol/L (98-107); Glucose 103 mg/dL (74-99); Magnesium 1.9 mg/dL (1.6-2.3); Non-African American GFR(CKD) 89 (>60 ml/min/1.73 sqM); Phosphorus 3.3 mg/dL (2.5-4.5); Potassium 3.9 mmol/L (3.5-5.1); Sodium 135 mmol/L (137-145)
[2020-07-06] MEDS: ALBUTEROL HFA INHALER INHALATION PRN ×2 (09:04→12:34)
[2020-07-06] MEDS: FAT EMULSION 20% 250 ML in EMPTY BAG 1 BAG IV SCH (09:56)
[2020-07-06 12:06] LABS: Glucose,Whole Blood 173 mg/dL (75-99)
--- NOTE | 2020-07-06 12:13 | P.PN ---
Subjective Progress Note Date: 07/06/20 Acute hypoxemic respiratory failure secondary to CoVID 19 pneumonitis This is a 70-year-old gentleman that was seen in the emergency room on June 21. He was sent into the emergency room after being seen by his primary care doctor because of increasing shortness of breath, and concerns that the patient might have COVID 19. In addition to shortness of breath, the patient states he's been having lots of chest congestion, and is been coughing. When he coughs, it is painful in his chest. He has been sick for at least 2 weeks. In addition, he has muscle aches and joint aches, weakness and fatigue, and fever and chills. Currently, he is on a nonrebreather mask. Saturations are 92%. His primary care physician Dr. Vijay Encarnacion. He was not receiving any IV fluids. His primary medical problems include atrial fibrillation, coronary artery disease, hyperlipidemia, hypertension, gastroesophageal reflux disease, and prior myocardial infarction. The patient is a lifelong nontobacco user. White count is 4.9, hemoglobin 13.5, hematocrit 39.5, platelet count 92,000. PTT 61.3. D- dimer 2.41. Sodium 132, potassium 4.8, chloride 105, CO2 18, anion gap 9, BUN and creatinine 52 and 2.05. Calcium 7.6, AST 156, pO2 102, LDH 2018. C- reactive protein 158. I was not able to look at the chest x-ray. There is apparently a partially occlusive opacity at the right lung base consistent with acute pneumonic process. CT angiogram was not performed. Patient was reevaluated today on 06/23/2020, patient is feeling better today compared to how he felt yesterday. Patient is on high flow cannula running at 15 L/m, his O2 saturation is in the mid to high 80s he is on 100% FiO2 basically. His chest x-ray does not seem to be impressive, he does have consolidative opacity in the right lung base consistent with acute pneumonic process. Left lung is relatively clear. No significant pulmonary congestion. D-dimer is 2.56. Renal profile is not good enough for performing a CT angiogram of the chest, however I will recommend bilateral venous Doppler on this patient just to make sure we were not dealing with thromboembolic process. Again the patient tells me that his feeling better today compared to how he felt yesterday. Clinically improving. Patient was reevaluated today on 06/24/2020, patient remains on high flow oxygen. He is on 15 L high flow cannula, and his O2 saturations 92% at best. Patient continues to have shortness of breath, intermittent episodes of cough. He has no fever, his vital signs are relatively stable. During my evaluation, patient was constantly coughing. CBC is relatively normal electrolytes are normal BUN is 52 creatinine 1.45. LDH is elevated at 1586. Venous Doppler yesterday was negative. Chest x-ray on admission showed consolidation at the right lung base. I also suspect some consolidation at the left base/retrocardiac area. Progress note dated 06/25/2020. Currently, the patient was on BiPAP and on percent. Earlier today, he desaturated, and the nurses had a hard time getting his saturations back up. We did do a blood gas on the patient. PO2 was 63, pCO2 was 33, pH was 7.44. That was on 100% on the BiPAP. White count 14.8, hemoglobin hematocrit and platelet count all normal. Sodium 136, potassium 4.9, chlorides 107, CO2 20, anion gap 9, BUN 45, creatinine 1.28. Chest x-ray today showed diffuse bilateral patchy infiltrates which are stable. Yesterday, he was on high flow nasal O2 at 15 L/m. Progress note dated 06/26/2020. 70-year-old male, currently on BiPAP, at 16/6 and 80%. His saturations were good, so the FiO2 was dropped from 80% down to 60%. The patient appears to be doing reasonably well, although he did become somewhat tachypnea today when he was being evaluated here. Saturations are 90% on the 60% FiO2. Temperature is 98.1, and blood pressure 173/104. White count 14.9, and hemoglobin, hematocrit, and platelet count are all normal. Sodium 135, potassium 5.2, chlorides 106, CO2 18, anion gap 11, BUN 38, creatinine 1.23. Chest x-ray from June 25, shows bilateral patchy infiltrates. The patient is seen today 06/27/2020 in follow-up on the regular medical floor. He is currently resting fairly comfortably in bed. He is maintaining O2 saturation in the 90s on BiPAP 16/6 and 60% FiO2. 0.9 normal saline at 50 MLS per hour. Chest x-ray continues to show patchy bilateral infiltrates compatible with superimposed interstitial pneumonia. White count 8.3. Hemoglobin 13.4. Sodium 139. Potassium 5.6. Creatinine 1.13. He is continued on dexamethasone, Xarelto, vitamin supplements. The patient is seen today 06/28/2020 follow-up on the selective care unit. He is currently sitting up in bed. Remains on BiPAP 16/6 and 100% FiO2 maintaining O2 saturation the high 80s low 90s. He is 0.9 normal saline at 50 MLS per hour. He is now on Lovenox, dexamethasone, vitamin supplements. PICC line placed today. The patient is seen today 06/29/2020 follow-up on the selective care unit. He remains on BiPAP 16/6 and 100% FiO2 to maintain O2 saturations in the low 90s. He is afebrile. Currently being nourished with TPN via PICC line. 0.9 normal saline at 50 ML's per hour. Blood cultures reveal no growth. Sodium 140. Potassium 5.1. Creatinine 1.18. Glucose 125. He remains on dexamethasone, Lovenox, vitamin supplements. The patient is seen today 06/30/2020 follow-up on the selective care unit. He is currently resting fairly comfortably in bed. Remains on BiPAP 16/6 at 100% FiO2. He is being nourished with TPN and lipids via PICC line. 0.9 normal saline at 50 MLS per hour. He states he is still quite fatigued but improved today compared to yesterday. Cultures reveal no growth. D-dimer 10.2. Sodium 140. Potassium 5.2. Creatinine 0.99. LDH 1591. C-reactive protein 53.8. He remains on therapeutic Lovenox, dexamethasone, vitamin supplements. The patient is seen today 07/01/2020 in follow-up on the selective care unit. He is resting comfortably in bed. Continued on BiPAP 16/6 and 100% FiO2 to maintain O2 saturations in the high 80s low 90s. Chest x-ray continues to show scattered bilateral lung infiltrates which are stable compared to previous. Sodium 142. Potassium 4.8. Creatinine 0.95. Yesterday's d-dimer 10.23. Remains on therapeutic Lovenox at 100 mg subcu every 12 hours, Decadron, vitamin supplements. On today's evaluation of 07/02/2020 on seeing the patient for a follow-up. The patient remains on a BiPAP at a pressure of 16/6 cm of water and FiO2 of 80%. The patient is also receiving TPN for nutritional support. Therapeutic dose of Lovenox. His d-dimer was quite elevated at 10.2, normal renal function, normal electrolytes, CRP was elevated at 53 with an LDH level of 1591. Most recent chest x-ray from 07/01/2030 showing peripherally located infiltrates bilaterally. The patient is able to generate tidal volume of around 370 on the BiPAP machine. His extremities around 28. He is very weak. He cannot tolerate being off the BiPAP as the patient immediately desaturates even was taken pills or sips of water. He remains on TPN for nutritional support. His symptoms of his blood work today, he has white cell count of 9.8 with a hemoglobin of 12, sodium is 139 and a creatinine of 0.9. His current pulse ox on the percent on above-mentioned BiPAP setting with an FiO2 of 80%.Inflammatory markers are still elevated. D-dimer is at 5 and the patient also has an LDH level of 1009 with a CRP of 143.The chest x-ray from yesterday was showing worsening in the bilateral lower lobe pulmonary infiltrates especially in the right lower lobe. 07/03/2020 the patient remains on BiPAP at a pressure of 16/6 with an FiO2 of 80% and this is essentially the same setting as yesterday. His current vitals show a pulse ox of 94% on above-mentioned ventilator setting. He is afebrile. Breathing is nonlabored. He is still on TPN for nutritional support. His chest x-ray from 07/01/2020 showed peripheral pulmonary infiltrates consistent with Coumadin related pneumonia. No repeat x-rays since then. The patient remains considerably weak. His blood work from today showing no major electrolyte abnormalities. His LDH level was dropping yesterday down to 1009. He is still on Decadron 6 mg IV every 24 hours. He is also on Lovenox 45 mg subcu every 12 hours. On the BiPAP machine, degenerative tidal volumes around 400. 06/03/2020 this morning the patient is off the BiPAP and the patient is currently on a high flow oxygen 60 L with an FiO2 of 86%. The patient is also using 100% nonrebreather facemask. His current pulse ox is around 91%. He has developed skin breaks and ulceration from his BiPAP mask and is currently off the BiPAP. He is resting comfortably in bed. He is still on Lovenox 45 mg subcu every 12 hours. There is on steroids and the patient is receiving Decadron 6 mg IV every 24 hours. The patient is also on TPN for nutritional support. LDH level is at 893 which is lower than the CRP level is down to 50. He is quite weak and debilitated. His white cell count of 6.8 with a hemoglobin of 12.3. No fever. No other new complaints otherwise for now. Most recent d- dimer was at 5 from 07/02/2020. 07/05/2020, the patient remains on BiPAP. The patient was on high flow oxygen yesterday and desaturated and he decompensated and he was switched to a BiPAP at a pressure of 16/6 with an FiO2 of 80%. This occurred when the patient on was trying to have some breakfast earlier this morning. He was on high flow oxygen. He dropped his oxygen saturations significantly and he was very slow in recovery. At that point, he was switched to a BiPAP. His current pulse ox is 90%. He is quite lethargic and somnolent. He is unable to eat and he has TPN for nutritional support. He continues to be on Decadron 6 mg IV every 24 hours. He is also on Lovenox 45 mg subcutaneously every 12 hours. On his blood work, he had a d-dimer of 6.49 which is slightly higher than the white cell count is at 8.6 with a hemoglobin of 12.8. TPN is current to being administered for nutritional support. No other significant events , otherwise his night was uneventful.. The PICC line is in the left upper extremity. The patient also has a Kwan catheter in place. Each in relating a tidal volume of 550 and his respiratory rate is currently in the mid 30s. He seems to be quite comfortable. He is however lethargic. 07/06/2020, the patient is on a BiPAP at a pressure of 16/6 with an FiO2 of 100%. Pulse ox is currently at around 88%. He was having some oxygen desaturations and the patient was brought up to 100% on her BiPAP FiO2. The patient's subsequent reading in a pulse ox in the order of 91%. Remains on TPN for nutritional support. Remains on Decadron 6 mg IV every 24 hours. Remains on Lovenox 45 mg subcu every 12 hours. Blood work shows a d-dimer of 5.64. No electrolyte abnormalities. Condition is essentially unchanged and probably the same as yesterday. Still on Levemir insulin 10 units along with a sliding scale coverage. Blood sugars are adequate for now. He does have a PICC line in left upper extremity. He has a Kwan catheter in place. At around 10:00 this morning, the patient was trialed on the percent nonrebreather with a high flow oxygen at 60 L with an FiO2 of 90%. He desaturated to the low 60s and he was placed accordingly back on BiPAP. Objective - Vital Signs Vital signs: Vital Signs Temp 98.6 F 07/06/20 00:00 Pulse 85 07/06/20 08:00 Resp 32 H 07/06/20 08:00 BP 136/81 07/06/20 08:00 Pulse Ox 89 L 07/06/20 08:00 Intake & Output 07/05/20 07/06/20 07/06/20 18:59 06:59 18:59 Intake Total 600 Output Total 1450 450 Balance -850 -450 Weight 87.5 kg 95 kg 95 kg Intake: Oral 600 Output: Urine 1450 450 Other: Voiding Method Indwelling Catheter Indwelling Catheter Indwelling Catheter - Exam GENERAL EXAM: Alert, 70-year-old gentleman, on BIPAP 16/6 with fio2 100% HEAD: Normocephalic. EYES: Normal reaction of pupils, equal size. NOSE: Clear with pink turbinates. Skin breaks over that was related to a BiPAP mask and the patient has developed a dry ulcer. THROAT: No erythema or exudates. NECK: No masses, no JVD. CHEST: No chest wall deformity. LUNGS: Equal air entry with crackles in the bilateral posterior bases. CVS: S1 and S2 normal with no audible murmur, regular rhythm. ABDOMEN: No hepatosplenomegaly, normal bowel sounds, no guarding or rigidity. SPINE: No scoliosis or deformity SKIN: No rashes CENTRAL NERVOUS SYSTEM: No focal deficits, tone is normal in all 4 extremities. EXTREMITIES: There is no peripheral edema. No clubbing, no cyanosis. Peripheral pulses are intact. - Labs CBC & Chem 7: 07/05/20 09:02 07/06/20 08:04 Labs: Abnormal Lab Results - Last 24 Hours (Table) 07/05/20 07/05/20 07/05/20 Range/Units 09:02 12:05 18:04 D-Dimer (<0.60) mg/L FEU Sodium 132 L (137-145) mmol/L BUN 32 H (9-20) mg/dL Glucose 115 H (74-99) mg/dL POC Glucose (mg/dL) 180 H 215 H (75-99) mg/dL Lactate Dehydrogenase 1187 H (313-618) U/L C-Reactive Protein 49.5 H (<10.0) mg/L 07/05/20 07/06/20 07/06/20 Range/Units 19:02 00:25 06:15 D-Dimer (<0.60) mg/L FEU Sodium (137-145) mmol/L BUN (9-20) mg/dL Glucose (74-99) mg/dL POC Glucose (mg/dL) 195 H 171 H 118 H (75-99) mg/dL Lactate Dehydrogenase (313-618) U/L C-Reactive Protein (<10.0) mg/L 07/06/20 07/06/20 Range/Units 08:04 08:04 D-Dimer 5.64 H (<0.60) mg/L FEU Sodium 135 L (137-145) mmol/L BUN 31 H (9-20) mg/dL Glucose 103 H (74-99) mg/dL POC Glucose (mg/dL) (75-99) mg/dL Lactate Dehydrogenase (313-618) U/L C-Reactive Protein (<10.0) mg/L Assessment and Plan Plan: 1 Acute hypoxemic respiratory failure secondary to CoVID 19 pneum onia/pneumonitis. Outside the window for Remdesivir, and the patient remains on Decadron. The patient is utilizing BiPAP this morning at a pressure of 16/6 with an FiO2 of100%. He remains on TPN for nutritional support. Unable to tolerate high flow oxygen/nonrebreather combination. He is currently saturating in the high 80s while being on a BiPAP. CBC more comfortable on the BiPAP. Respiratory rate is in the low 30s. On TPN for nutritional support. 2 History of atrial fibrillation 3 Coronary disease with previous stent placement 4 Gastroesophageal reflux disease 6 Hypertension 7 Hyperlipidemia 8 Rheumatic fever, history of 9 History of gout 10 Acute kidney injury, recovered and the patient's renal function is also normalized Plan: Continue BiPAP for today. Inflammatory markers were noted LDH was around 1105 The d-dimer is slightly elevated , d-dimer is at 5.64 chest x-ray is stable for now Being nourished with TPN via PICC line Remains on therapeutic Lovenox and drop the dose to 45 mg subcu every 12 hours Decadron, vitamin supplements, currently on Decadron 6 mg IV every 24 hours Order Tocilizumab , and this will be given in conjunction with Decadron to give him the benefit of the doubt that the patient has demonstrated prolonged course and lack of recovery. Mother markers continued to be elevated. There may be some benefit to this combination. Titrate down the FiO2 as tolerated Keep nothing by mouth for now and continue with TPN No much room for further weaning. The patient is any for his BiPAP. We'll continue the BiPAP for now. We'll continue to follow. Repeat chest x-ray in the morning. High likelihood for respiratory failure requiring intubation mechanical ventilation. The patient has been in the hospital for more than 2 weeks. We'll continue to follow,
[2020-07-06] MEDS: SODIUM CHLORIDE 0.9% 1,000 ML IV SCH (13:18)
[2020-07-06] MEDS ORDERED: TOCILIZUMAB 800 MG in SODIUM CHLORIDE 0.9% 60 ML IV ONE (14:00)
[2020-07-06 14:21] LABS: C Reactive Protein 7.7 mg/dL (<1.0)
--- NOTE | 2020-07-06 15:21 | P.PN ---
Subjective Progress Note Date: 07/06/20 This is 70-year-old gentleman with past medical history of hypertension, and gastroesophageal reflux disease, CAD, NM, chronic back pain with history of laminectomy and multiple other medical issues presented to the ER with history of fevers ,worsening shortness of breath. Patient had seen his PCP last week on Thursday the and was recommended to go for his covid test. Patient apparently never went for his test. Yesterday completed a tele visit with his PCP, Dr. Encarnacion, referred to the ER. Patient tested positive for Covid infection while in the ER. On admission patient hypoxic with O2 sat of 80% on room air, required nonrebreather to maintain O2 sats in the 90s to 100%. Febrile on admission with temperature 99.9, normal WBC. D-dimer 2.41, sodium 132, BUN 52, creatinine 2.05, ferritin 1556.7 total bili elevated on admission now within normal limits, mildly elevated LFTs, LDH 2411currently 2018, CRP 158.4. Given patient's renal function and respiratory status unable to proceed with CTA of chest or VQ to rule out PE, currently on heparin drip. Chest x-ray reported partially consolidative opacity in the right lung base consistent with acute pneumonic process. Telemetry sinus rhythm with fusion complexes and PACs with left axis deviation. Denies chest pain, palpitations. 06/25/2020 during the night and again this morning patient removing his oxygen, desatting into the high 40s, turning blue, return to 15 L high flow in addition to nonrebreather, O2 sats initially in the high 80s. As the morning progressed, only maintaining O2 sats in the low 80s and transitioned to BiPAP mask. Chest x-ray reported diffuse bilateral patchy infiltrates stable. Denies chest pain, palpitations. Xanax administered for anxiety. Continue to develop more agitation attempting deplorable off mask. timing inspector placed in room. Eventually patient required IV push Haldol. Patient now maintaining O2 sat of 94% on 100% BiPAP. Afebrile, WBC 14.8. Creatinine improving, 1.28. 06/26/2020 requiring 100% BiPAP to maintain O2 sats in the low 90s. T-max 102.6. WBC 14.9. Telemetry reporting Sinus Tachycardia with heart rates up into the 120s. Echo reported LV function 40-45% . Potassium 5.2, Renal function improving. Blood sugars controlled. Anxious, agitated, combative at times. Sitter remains at bedside. Receiving when necessary Haldol. Staff reports patient was asking for the bar mayandel, unclear if history of EtOH abuse, with questionable withdrawal. Psychiatry consult in place with recommendations pending. 06/27/2020 receiving associate hours, significant agitation despite adjustment in med regimen. Received Ativan 1 mg IV push. Agitation lessened. Staff reports carmen ent was choking on water. Spiking fevers, T-max 100.5, labs pending. Taking O2 sats of 90 on 60% BiPAP. 06/28/2020 rough night with increased agitation and confusion despite Prolixin and Zyprexa. Reevaluated by psychiatry this morning with medication changes noted and appreciated. Unable to wean from 100% BiPAP, maintaining O2 sats of mid 80s to low 90s. Speech therapy unable to conduct swallow evaluation as patient unable to tolerate being off of BiPAP. Poor oral intake, renal function worsening. Sitter remains at bedside. Afebrile. 06/29/2020 100% BiPAP, maintaining O2 sats in the low 90s. Had a better night with less agitation, received Prolixin. Less confused this morning. Asking for ice chip. Complains of chronic back pain. Discussed CODE STATUS and patient wishes to remain a full code. Denies any chest pain, palpitations. BUN 43, creatinine 1.18. Received PICC line with TPN initiated yesterday. Blood sugars controlled. 07/02/2020 remains on 80% BiPAP, maintaining O2 sats in the high 80s. Minimal reserve-Unable to tolerate being off BiPAP mask . Receiving TPN via PICC line. Reporting that he is hungry.Calm, maintained on Zyprexa, prn Prolixin as per p sychiatry. Did not require Prolixin over the weekend. Sensorium significantly improved. Afebrile. D-dimer, LDH decreased, CRP increased. 07/03/2020 continue on 80% BiPAP, calm, maintaining O2 sats in the mid 90s. Hungry, asking for food, receiving TPN. Also asking for a writing board to co mmunicate easier. 07/04/2020 significant improvement in sensorium .weaned off of BiPAP currently maintaining O2 sats in the high 80s to low 90s on both high flow nasal cannula/nonrebreather. Productive cough. Continues on TPN with bites of food intermittently. Blood sugars ranging from 130 to 225. Continue on Covid cocktail including Decadron. Denies chest pain, palpitations. 07/05/2020 Staff reports patient desatted down into the 70s this morning within minutes of taken off mask (patient had been on 60L high flow nasal cannula and nonrebreather )to have a few bites of oatmeal. Slow recovery and 80% BiPAP mask reapplied. Receiving TPN via PICC line as well. Continues on Covid cocktail. Blood sugars better controlled on low-dose Levemir insulin. T-max 100.5, WBC 8.6. 07/06/2020 Desatted to the low 60s on high flow nasal cannula with nonrebreather. BiPAP 100% maintaining O2 sats of 89%. Maintained on TPN . Continues on Covid cocktail. Inflammatory markers remain elevated. Afebrile, T-max 99. Blood sugars controlled. Objective - Vital Signs Vital signs: Vital Signs Temp 97.1 F L 07/06/20 12:00 Pulse 66 07/06/20 12:00 Resp 31 H 07/06/20 12:00 BP 126/69 07/06/20 12:00 Pulse Ox 92 L 07/06/20 12:00 Intake & Output 07/05/20 07/06/20 07/06/20 18:59 06:59 18:59 Intake Total 600 Output Total 1450 450 Balance -850 -450 Weight 87.5 kg 95 kg 95 kg Intake: Oral 600 Output: Urine 1450 450 Other: Voiding Method Indwelling Catheter Indwelling Catheter Indwelling Catheter - Exam GENERAL: Sitting up in bed, alert and oriented 3, no acute distress,, wearing BiPAP CHEST EXAMINATION: Symmetrical expansion. Diminished, bibasilar crackles CARDIAC: Normal S1, S2 with no gallops. No murmurs ABDOMEN: Soft. Bowel sounds normal. No guarding. Positive bowel sounds Extremities: reveal no edema. No clubbing or cyanosis Neurologically: Cranial nerves II through XII grossly intact , no focal deficits, Moving all extremities. Skin: Warm and dry, no rashes. - Labs CBC & Chem 7: 07/05/20 09:02 07/06/20 08:04 Labs: Abnormal Lab Results - Last 24 Hours (Table) 07/05/20 07/05/20 07/06/20 Range/Units 18:04 19:02 00:25 D-Dimer (<0.60) mg/L FEU Sodium (137-145) mmol/L BUN (9-20) mg/dL Glucose (74-99) mg/dL POC Glucose (mg/dL) 215 H 195 H 171 H (75-99) mg/dL Lactate Dehydrogenase (313-618) U/L C-Reactive Protein (<1.0) mg/dL 07/06/20 07/06/20 07/06/20 Range/Units 06:15 08:04 08:04 D-Dimer 5.64 H (<0.60) mg/L FEU Sodium 135 L (137-145) mmol/L BUN 31 H (9-20) mg/dL Glucose 103 H (74-99) mg/dL POC Glucose (mg/dL) 118 H (75-99) mg/dL Lactate Dehydrogenase (313-618) U/L C-Reactive Protein (<1.0) mg/dL 07/06/20 07/06/20 Range/Units 12:03 12:37 D-Dimer (<0.60) mg/L FEU Sodium (137-145) mmol/L BUN (9-20) mg/dL Glucose (74-99) mg/dL POC Glucose (mg/dL) 173 H (75-99) mg/dL Lactate Dehydrogenase 1056 H (313-618) U/L C-Reactive Protein 7.7 H (<1.0) mg/dL Assessment and Plan Assessment: Sepsis secondary to Acute Covid -19 pneumonia Acute hypoxic respiratory failure secondary to the above Acute delirium, acute metabolic encephalopathy secondary to the above, possibly acute hypoxic encephalopathy, medication induced, steroids, benzos, opiates. Possible steroid psychosis. Significantly improved. Acute renal failure secondary to the above, improving Hyperglycemia, steroid-induced, A1c pending Gastroesophageal reflux disease Chronic paroxysmal atrial fibrillation Chronic systolic CHF, EF 35-40% Coronary artery disease with history of NM,stent placement Former nicotine dependence Hypertension PICC line, TPN Plan: Continue on current medication regime ,monitoring and symptomatic treatment.Covid cocktail. TPN. Slow progress , placed back on BiPAP .Prognosis guarded given multiple complex medical issues. The impression and plan of care has been dictated as directed. : I performed a history and examination of this patient, discussed the same with the dictator. I agree with the dictator's note ,documented as a scribe. Any additional findings or plans will be noted.
[2020-07-06 16:57] LABS: Glucose,Whole Blood 253 mg/dL (75-99)
[2020-07-06] MEDS: OLANZapine 7.5 MG TAB PO SCH (21:00)
[2020-07-06] MEDS: ATORVASTATIN 10 MG TAB PO SCH (21:00)
[2020-07-07 00:02] LABS: Glucose,Whole Blood 205 mg/dL (75-99)
[2020-07-07] MEDS: METOPROLOL TARTRATE 25 MG TAB PO SCH ×3 (00:14→21:43)
[2020-07-07] MEDS: INSULIN ASPART (NovoLOG) 100 UNIT/ML VIAL SQ SCH ×5 (00:24→23:41)
[2020-07-07] MEDS: SODIUM CHLORIDE 0.9% 1,000 ML IV SCH ×2 (03:36→19:18)
[2020-07-07 06:06] LABS: Glucose,Whole Blood 170 mg/dL (75-99)
[2020-07-07] MEDS: INSULIN DETEMIR (LEVEMIR) 100 UNIT/ML SYR SQ SCH (06:43)
[2020-07-07] MEDS: CALCIUM GLUCONATE IV SCH ×14 (06:54→19:17)
[2020-07-07] MEDS: SODIUM PHOSPHATE IV SCH ×14 (06:54→19:17)
[2020-07-07] MEDS: [UNRECOGNIZED DRUG - OTHER] IV SCH ×14 (06:54→19:17)
[2020-07-07] MEDS: SODIUM ACETATE IV SCH ×14 (06:54→19:17)
--- NOTE | 2020-07-07 07:55 | XR ---
EXAMINATION TYPE: XR chest 1V portable DATE OF EXAM: 07/07/2020 CLINICAL HISTORY: Difficulty breathing and covid progress study. TECHNIQUE: Single AP portable upright view of the chest is obtained. COMPARISON: Chest x-ray from 3 days earlier and older studies. FINDINGS: Stable left-sided PICC line. Multifocal reticular opacities greatest in the periphery bilaterally is redemonstrated. Some confluen t opacities in the bases again seen. Cardiac silhouette size stable and upper limits of normal with a therosclerotic change aortic knob. Osseous structures are intact. IMPRESSION: Persistent bilateral multifocal reticular and confluent opacities consistent with covid-1 9 infection. No significant change from most recent x-ray.
[2020-07-07] MEDS: ALBUTEROL HFA INHALER INHALATION PRN ×4 (08:18→20:52)
[2020-07-07] MEDS: CHOLECALCIFEROL 25 MCG (1000 IU) TABLET PO SCH (10:04)
[2020-07-07] MEDS: FAMOTIDINE 20 MG TAB PO SCH ×2 (10:05→21:42)
[2020-07-07] MEDS: allopurinoL 100 MG TAB PO SCH (10:05)
[2020-07-07] MEDS: ZINC SULFATE 220 MG CAP PO SCH (10:05)
[2020-07-07] MEDS: DEXAMETHASONE SOD PHOSPHATE 10 MG/ML 1 ML VIAL IV SCH (10:06)
[2020-07-07] MEDS: ENOXAPARIN 60 MG/0.6 ML SYRINGE SQ SCH ×2 (10:06→21:43)
[2020-07-07] MEDS: ASCORBIC ACID 500 MG TAB PO SCH ×2 (10:06→21:42)
[2020-07-07] MEDS: FAT EMULSION 20% 250 ML in EMPTY BAG 1 BAG IV SCH (10:19)
[2020-07-07 11:16] LABS: African American GFR (CKD) >90 (>60 ml/min/1.73 sqM); Anion Gap 5 mmol/L; Blood Urea Nitrogen 33 mg/dL (9-20); C Reactive Protein 8.3 mg/dL (<1.0); Calcium 8.7 mg/dL (8.4-10.2); Carbon Dioxide 23 mmol/L (22-30); Chloride 106 mmol/L (98-107); Glucose 138 mg/dL (74-99); LDH 962 U/L (313-618); Non-African American GFR(CKD) >90 (>60 ml/min/1.73 sqM); Phosphorus 3.4 mg/dL (2.5-4.5); Potassium 3.9 mmol/L (3.5-5.1); Sodium 134 mmol/L (137-145)
--- NOTE | 2020-07-07 11:34 | P.PN ---
Subjective Progress Note Date: 07/07/20 Acute hypoxemic respiratory failure secondary to CoVID 19 pneumonitis This is a 70-year-old gentleman that was seen in the emergency room on June 21. He was sent into the emergency room after being seen by his primary care doctor because of increasing shortness of breath, and concerns that the patient might have COVID 19. In addition to shortness of breath, the patient states he's been having lots of chest congestion, and is been coughing. When he coughs, it is painful in his chest. He has been sick for at least 2 weeks. In addition, he has muscle aches and joint aches, weakness and fatigue, and fever and chills. Currently, he is on a nonrebreather mask. Saturations are 92%. His primary care physician Dr. Vijay Encarnacion. He was not receiving any IV fluids. His primary medical problems include atrial fibrillation, coronary artery disease, hyperlipidemia, hypertension, gastroesophageal reflux disease, and prior myocardial infarction. The patient is a lifelong nontobacco user. White count is 4.9, hemoglobin 13.5, hematocrit 39.5, platelet count 92,000. PTT 61.3. D- dimer 2.41. Sodium 132, potassium 4.8, chloride 105, CO2 18, anion gap 9, BUN and creatinine 52 and 2.05. Calcium 7.6, AST 156, pO2 102, LDH 2018. C- reactive protein 158. I was not able to look at the chest x-ray. There is apparently a partially occlusive opacity at the right lung base consistent with acute pneumonic process. CT angiogram was not performed. Patient was reevaluated today on 06/23/2020, patient is feeling better today compared to how he felt yesterday. Patient is on high flow cannula running at 15 L/m, his O2 saturation is in the mid to high 80s he is on 100% FiO2 basically. His chest x-ray does not seem to be impressive, he does have consolidative opacity in the right lung base consistent with acute pneumonic process. Left lung is relatively clear. No significant pulmonary congestion. D-dimer is 2.56. Renal profile is not good enough for performing a CT angiogram of the chest, however I will recommend bilateral venous Doppler on this patient just to make sure we were not dealing with thromboembolic process. Again the patient tells me that his feeling better today compared to how he felt yesterday. Clinically improving. Patient was reevaluated today on 06/24/2020, patient remains on high flow oxygen. He is on 15 L high flow cannula, and his O2 saturations 92% at best. Patient continues to have shortness of breath, intermittent episodes of cough. He has no fever, his vital signs are relatively stable. During my evaluation, patient was constantly coughing. CBC is relatively normal electrolytes are normal BUN is 52 creatinine 1.45. LDH is elevated at 1586. Venous Doppler yesterday was negative. Chest x-ray on admission showed consolidation at the right lung base. I also suspect some consolidation at the left base/retrocardiac area. Progress note dated 06/25/2020. Currently, the patient was on BiPAP and on percent. Earlier today, he desaturated, and the nurses had a hard time getting his saturations back up. We did do a blood gas on the patient. PO2 was 63, pCO2 was 33, pH was 7.44. That was on 100% on the BiPAP. White count 14.8, hemoglobin hematocrit and platelet count all normal. Sodium 136, potassium 4.9, chlorides 107, CO2 20, anion gap 9, BUN 45, creatinine 1.28. Chest x-ray today showed diffuse bilateral patchy infiltrates which are stable. Yesterday, he was on high flow nasal O2 at 15 L/m. Progress note dated 06/26/2020. 70-year-old male, currently on BiPAP, at 16/6 and 80%. His saturations were good, so the FiO2 was dropped from 80% down to 60%. The patient appears to be doing reasonably well, although he did become somewhat tachypnea today when he was being evaluated here. Saturations are 90% on the 60% FiO2. Temperature is 98.1, and blood pressure 173/104. White count 14.9, and hemoglobin, hematocrit, and platelet count are all normal. Sodium 135, potassium 5.2, chlorides 106, CO2 18, anion gap 11, BUN 38, creatinine 1.23. Chest x-ray from June 25, shows bilateral patchy infiltrates. The patient is seen today 06/27/2020 in follow-up on the regular medical floor. He is currently resting fairly comfortably in bed. He is maintaining O2 saturation in the 90s on BiPAP 16/6 and 60% FiO2. 0.9 normal saline at 50 MLS per hour. Chest x-ray continues to show patchy bilateral infiltrates compatible with superimposed interstitial pneumonia. White count 8.3. Hemoglobin 13.4. Sodium 139. Potassium 5.6. Creatinine 1.13. He is continued on dexamethasone, Xarelto, vitamin supplements. The patient is seen today 06/28/2020 follow-up on the selective care unit. He is currently sitting up in bed. Remains on BiPAP 16/6 and 100% FiO2 maintaining O2 saturation the high 80s low 90s. He is 0.9 normal saline at 50 MLS per hour. He is now on Lovenox, dexamethasone, vitamin supplements. PICC line placed today. The patient is seen today 06/29/2020 follow-up on the selective care unit. He remains on BiPAP 16/6 and 100% FiO2 to maintain O2 saturations in the low 90s. He is afebrile. Currently being nourished with TPN via PICC line. 0.9 normal saline at 50 ML's per hour. Blood cultures reveal no growth. Sodium 140. Potassium 5.1. Creatinine 1.18. Glucose 125. He remains on dexamethasone, Lovenox, vitamin supplements. The patient is seen today 06/30/2020 follow-up on the selective care unit. He is currently resting fairly comfortably in bed. Remains on BiPAP 16/6 at 100% FiO2. He is being nourished with TPN and lipids via PICC line. 0.9 normal saline at 50 MLS per hour. He states he is still quite fatigued but improved today compared to yesterday. Cultures reveal no growth. D-dimer 10.2. Sodium 140. Potassium 5.2. Creatinine 0.99. LDH 1591. C-reactive protein 53.8. He remains on therapeutic Lovenox, dexamethasone, vitamin supplements. The patient is seen today 07/01/2020 in follow-up on the selective care unit. He is resting comfortably in bed. Continued on BiPAP 16/6 and 100% FiO2 to maintain O2 saturations in the high 80s low 90s. Chest x-ray continues to show scattered bilateral lung infiltrates which are stable compared to previous. Sodium 142. Potassium 4.8. Creatinine 0.95. Yesterday's d-dimer 10.23. Remains on therapeutic Lovenox at 100 mg subcu every 12 hours, Decadron, vitamin supplements. On today's evaluation of 07/02/2020 on seeing the patient for a follow-up. The patient remains on a BiPAP at a pressure of 16/6 cm of water and FiO2 of 80%. The patient is also receiving TPN for nutritional support. Therapeutic dose of Lovenox. His d-dimer was quite elevated at 10.2, normal renal function, normal electrolytes, CRP was elevated at 53 with an LDH level of 1591. Most recent chest x-ray from 07/01/2030 showing peripherally located infiltrates bilaterally. The patient is able to generate tidal volume of around 370 on the BiPAP machine. His extremities around 28. He is very weak. He cannot tolerate being off the BiPAP as the patient immediately desaturates even was taken pills or sips of water. He remains on TPN for nutritional support. His symptoms of his blood work today, he has white cell count of 9.8 with a hemoglobin of 12, sodium is 139 and a creatinine of 0.9. His current pulse ox on the percent on above-mentioned BiPAP setting with an FiO2 of 80%.Inflammatory markers are still elevated. D-dimer is at 5 and the patient also has an LDH level of 1009 with a CRP of 143.The chest x-ray from yesterday was showing worsening in the bilateral lower lobe pulmonary infiltrates especially in the right lower lobe. 07/03/2020 the patient remains on BiPAP at a pressure of 16/6 with an FiO2 of 80% and this is essentially the same setting as yesterday. His current vitals show a pulse ox of 94% on above-mentioned ventilator setting. He is afebrile. Breathing is nonlabored. He is still on TPN for nutritional support. His chest x-ray from 07/01/2020 showed peripheral pulmonary infiltrates consistent with Coumadin related pneumonia. No repeat x-rays since then. The patient remains considerably weak. His blood work from today showing no major electrolyte abnormalities. His LDH level was dropping yesterday down to 1009. He is still on Decadron 6 mg IV every 24 hours. He is also on Lovenox 45 mg subcu every 12 hours. On the BiPAP machine, degenerative tidal volumes around 400. 06/03/2020 this morning the patient is off the BiPAP and the patient is currently on a high flow oxygen 60 L with an FiO2 of 86%. The patient is also using 100% nonrebreather facemask. His current pulse ox is around 91%. He has developed skin breaks and ulceration from his BiPAP mask and is currently off the BiPAP. He is resting comfortably in bed. He is still on Lovenox 45 mg subcu every 12 hours. There is on steroids and the patient is receiving Decadron 6 mg IV every 24 hours. The patient is also on TPN for nutritional support. LDH level is at 893 which is lower than the CRP level is down to 50. He is quite weak and debilitated. His white cell count of 6.8 with a hemoglobin of 12.3. No fever. No other new complaints otherwise for now. Most recent d- dimer was at 5 from 07/02/2020. 07/05/2020, the patient remains on BiPAP. The patient was on high flow oxygen yesterday and desaturated and he decompensated and he was switched to a BiPAP at a pressure of 16/6 with an FiO2 of 80%. This occurred when the patient on was trying to have some breakfast earlier this morning. He was on high flow oxygen. He dropped his oxygen saturations significantly and he was very slow in recovery. At that point, he was switched to a BiPAP. His current pulse ox is 90%. He is quite lethargic and somnolent. He is unable to eat and he has TPN for nutritional support. He continues to be on Decadron 6 mg IV every 24 hours. He is also on Lovenox 45 mg subcutaneously every 12 hours. On his blood work, he had a d-dimer of 6.49 which is slightly higher than the white cell count is at 8.6 with a hemoglobin of 12.8. TPN is current to being administered for nutritional support. No other significant events , otherwise his night was uneventful.. The PICC line is in the left upper extremity. The patient also has a Kwan catheter in place. Each in relating a tidal volume of 550 and his respiratory rate is currently in the mid 30s. He seems to be quite comfortable. He is however lethargic. 07/06/2020, the patient is on a BiPAP at a pressure of 16/6 with an FiO2 of 100%. Pulse ox is currently at around 88%. He was having some oxygen desaturations and the patient was brought up to 100% on her BiPAP FiO2. The patient's subsequent reading in a pulse ox in the order of 91%. Remains on TPN for nutritional support. Remains on Decadron 6 mg IV every 24 hours. Remains on Lovenox 45 mg subcu every 12 hours. Blood work shows a d-dimer of 5.64. No electrolyte abnormalities. Condition is essentially unchanged and probably the same as yesterday. Still on Levemir insulin 10 units along with a sliding scale coverage. Blood sugars are adequate for now. He does have a PICC line in left upper extremity. He has a Kwan catheter in place. At around 10:00 this morning, the patient was trialed on the percent nonrebreather with a high flow oxygen at 60 L with an FiO2 of 90%. He desaturated to the low 60s and he was placed accordingly back on BiPAP. 07/07/2020 the patient is a same BiPAP setting which is 60/6 with an FiO2 of 95%. Earlier this morning she was trialed on high flow oxygen with 60 L and FiO2 of 90% and he decompensated and he became profoundly hypoxic and he had to be placed back on the BiPAP. His current pulse ox in the low 90s. He remains on IV Decadron 6 and the rescue 24 hours. He remains on Lovenox 45 mg subcu every 12 hours. Chest x-ray from today is showing stable bilateral interstitial pulmonary infiltrates with some worsening consolidation of the left lower lobe. Meanwhile, the patient is still receiving TPN for nutritional support. He is unable to take oral intake because of his extreme BiPAP dependence. D-dimer is at 4.06 and the patient is on Lovenox 45 mg subcu every 12 hours. He has also LDH level of 962, CRP level is at 8.3, electrolytes are all within normal limits. Unfortunately, he is still doing poorly and is not showing any signs of recovery. He remains on Levemir insulin 10 units daily along with a sliding- scale coverage. He has a Kwan catheter in place. Respiratory rate is in the mid 30s. He is quite lethargic. Objective - Vital Signs Vital signs: Vital Signs Temp 97.6 F 07/06/20 15:26 Pulse 57 L 07/07/20 04:00 Resp 22 07/07/20 04:00 BP 131/75 07/07/20 04:00 Pulse Ox 93 L 07/07/20 04:00 Intake & Output 07/06/20 07/07/20 07/07/20 18:59 06:59 18:59 Intake Total 1041 350 Output Total 1600 1000 Balance -559 -650 Weight 95 kg 96 kg Intake: Intake, IV Titration 1041 350 Amount Mvi, Adult No.4 with Vit 1041 K 10 ml Trace (Conc-1Ml/ Dose) 1 ml Sodium Acetate 30 meq Sodium Phosphate 9 mmol Calcium Gluconate 1 gm Magnesium Sulfate gm 1 gm In Amino Acid 5%- D15w 1,000 ml @ 85 mls/hr IV .BY DURATION ROBERT Rx#: [id number] Sodium Chloride 0.9% 1, 350 000 ml @ 50 mls/hr IV . Q20H ROBERT Rx#:[id number] Output: Urine 1600 1000 Other: Voiding Method Indwelling Catheter Indwelling Catheter - Exam GENERAL EXAM: Alert, 70-year-old gentleman, on BIPAP 16/6 with fio2 95% HEAD: Normocephalic. EYES: Normal reaction of pupils, equal size. NOSE: Clear with pink turbinates. Skin breaks over that was related to a BiPAP mask and the patient has developed a dry ulcer. THROAT: No erythema or exudates. NECK: No masses, no JVD. CHEST: No chest wall deformity. LUNGS: Equal air entry with crackles in the bilateral posterior bases. CVS: S1 and S2 normal with no audible murmur, regular rhythm. ABDOMEN: No hepatosplenomegaly, normal bowel sounds, no guarding or rigidity. SPINE: No scoliosis or deformity SKIN: No rashes CENTRAL NERVOUS SYSTEM: No focal deficits, tone is normal in all 4 extremities. EXTREMITIES: There is no peripheral edema. No clubbing, no cyanosis. Peripheral pulses are intact. - Labs CBC & Chem 7: 07/05/20 09:02 07/07/20 10:24 Labs: Abnormal Lab Results - Last 24 Hours (Table) 07/06/20 07/06/20 07/06/20 Range/Units 12:03 12:37 16:47 D-Dimer (<0.60) mg/L FEU Sodium (137-145) mmol/L BUN (9-20) mg/dL Glucose (74-99) mg/dL POC Glucose (mg/dL) 173 H 253 H (75-99) mg/dL Lactate Dehydrogenase 1056 H (313-618) U/L C-Reactive Protein 7.7 H (<1.0) mg/dL 07/07/20 07/07/20 07/07/20 Range/Units 00:00 06:05 10:24 D-Dimer 4.06 H (<0.60) mg/L FEU Sodium (137-145) mmol/L BUN (9-20) mg/dL Glucose (74-99) mg/dL POC Glucose (mg/dL) 205 H 170 H (75-99) mg/dL Lactate Dehydrogenase (313-618) U/L C-Reactive Protein (<1.0) mg/dL 07/07/20 Range/Units 10:24 D-Dimer (<0.60) mg/L FEU Sodium 134 L (137-145) mmol/L BUN 33 H (9-20) mg/dL Glucose 138 H (74-99) mg/dL POC Glucose (mg/dL) (75-99) mg/dL Lactate Dehydrogenase 962 H (313-618) U/L C-Reactive Protein 8.3 H (<1.0) mg/dL Assessment and Plan Plan: 1 Acute hypoxemic respiratory failure secondary to CoVID 19 pneumonia/pneumonitis. Outside the window for Remdesivir, and the patient remains on Decadron. The patient is utilizing BiPAP this morning at a pressure of 16/6 with an FiO2 of 90%. He remains on TPN for nutritional support. Unable to tolerate high flow oxygen/nonrebreather combination. He is currently saturating in the high 80s while being on a BiPAP. We tried again to put him on high flow oxygen this morning and he failed. Note that the patient was given also Actemra 800 IV 1 yesterday the patient remains on Decadron. 2 History of atrial fibrillation 3 Coronary disease with previous stent placement 4 Gastroesophageal reflux disease 6 Hypertension 7 Hyperlipidemia 8 Rheumatic fever, history of 9 History of gout 10 Acute kidney injury, recovered and the patient's renal function is also normalized Plan: Continue BiPAP for today. Wean down the FiO2 as tolerated to maintain saturation above 90% LDH is slightly lower on today's evaluation. Being nourished with TPN via PICC line Remains on therapeutic Lovenox and drop the dose to 45 mg subcu every 12 hours Decadron, vitamin supplements, currently on Decadron 6 mg IV every 24 hours Tocilizumab was given 800 mg IV 1 , Keep nothing by mouth for now and continue with TPN No much room for further weaning. T . We'll continue the BiPAP for now. We'll continue to follow. Repeat chest x-ray in the morning. High likelihood for respiratory failure requiring intubation mechanical ventilation. The patient has been in the hospital for more than 2 weeks. We'll continue to follow,
[2020-07-07 12:21] LABS: Glucose,Whole Blood 169 mg/dL (75-99)
--- NOTE | 2020-07-07 16:06 | P.PN ---
Subjective Progress Note Date: 07/07/20 Principal diagnosis: Acute hypoxic respiratory failure secondary to acute covid 19 pneumonitis. 70-year-old gentleman that was seen in the emergency room on June 21. He was sent into the emergency room after being seen by his primary care doctor because of increasing shortness of breath, and concerns that the patient might have COVID 19. In addition to shortness of breath, the patient states he's been having lots of chest congestion, and is been coughing. When he coughs, it is painful in his chest. He has been sick for at least 2 weeks. In addition, he has muscle aches and joint aches, weakness and fatigue, and fever and chills. Currently, he is on a nonrebreather mask. Saturations are 92%. His primary care physician Dr. Vijay Encarnacion. He was not receiving any IV fluids. His primary medical problems include atrial fibrillation, coronary artery disease, hyperl ipidemia, hypertension, gastroesophageal reflux disease, and prior myocardial infarction. The patient is a lifelong nontobacco user. White count is 4.9, hemoglobin 13.5, hematocrit 39.5, platelet count 92,000. PTT 61.3. D-dimer 2.41. Sodium 132, potassium 4.8, chloride 105, CO2 18, anion gap 9, BUN and creatinine 52 and 2.05. Calcium 7.6, AST 156, pO2 102, LDH 2018. C-reactive protein 158. I was not able to look at the chest x-ray. There is apparently a partially occlusive opacity at the right lung base consistent with acute pneumonic process. CT angiogram was not performed. 06/23/2020 patient is seen and evaluated in the room at bedside reports feeling better today compared to how he felt yesterday. Patient is on high flow cannula running at 15 L/m, his O2 saturation is in the mid to high 80s he is on 100% FiO2 basically. His chest x-ray does not seem to be impressive, he does have consolidative opacity in the right lung base consistent with acute pneumonic process. Left lung is relatively clear. No significant pulmonary congestion. D-dimer is 2.56. Unable to perform CT angiogram of the chest due to compromised renal function, however I will recommend bilateral venous Doppler on this patient just to make sure we were not dealing with thromboembolic process. Again the patient tells me that his feeling better today compared to how he felt yesterday. Clinically improving. 06/24/2020 Patient is seen and evaluated in room at bedside; remains on O2 per H HF NC at 15 L along with nonrebreather mask with O2 saturation around 88%; cardiology is consulted to evaluate patient for his request Cardiology evaluated patient and have recommended to resume home anticoagulation therapy in form of Xarelto at 15 mg daily and discontinue Lovenox; lisinopril is recommended to be held due to mild AK I and hyperkalemia; we will continue to monitor renal function and electrolytes closely; continue with supplemental oxyg en with plans to wean off as tolerated; patient remains on subcu Lovenox and Decadron along with vitamins 07/07/2020 patient is seen and evaluated at bedside ; remains on BiPAP setting which is 60/6 with an FiO2 of 95%. Patient failed a trial of transition to high flow o xygen with 60 L and FiO2 of 90% and he decompensated and he became profoundly hypoxic and he had to be placed back on the BiPAP. His current pulse ox in the low 90s. He remains on IV Decadron 6 and the rescue 24 hours. He remains on Lovenox 45 mg subcu every 12 hours. Chest x-ray from today is showing stable bilateral interstitial pulmonary infiltrates with some worsening consolidation of the left lower lobe. Meanwhile, the patient is still receiving TPN for nutritional support. He is unable to take oral intake because of his extreme BiPAP dependence. D-dimer is at 4.06 and the patient is on Lovenox 45 mg subcu every 12 hours. He has also LDH level of 962, CRP level is at 8.3, electrolytes are all within normal limits. Unfortunately, he is still doing poorly and is not showing any signs of recovery. He remains on Levemir insulin 10 units daily along with a sliding-scale coverage. He has a Kwan catheter in place. Respiratory rate is in the mid 30s. He is quite lethargic. Objective - Vital Signs Vital signs: Vital Signs Temp 97.6 F 07/06/20 15:26 Pulse 57 L 07/07/20 04:00 Resp 22 07/07/20 04:00 BP 131/75 07/07/20 04:00 Pulse Ox 93 L 07/07/20 04:00 Intake & Output 07/06/20 07/07/20 07/07/20 18:59 06:59 18:59 Intake Total 1041 350 Output Total 1600 1000 Balance -559 -650 Weight 95 kg 96 kg Intake: Intake, IV Titration 1041 350 Amount Mvi, Adult No.4 with Vit 1041 K 10 ml Trace (Conc-1Ml/ Dose) 1 ml Sodium Acetate 30 meq Sodium Phosphate 9 mmol Calcium Gluconate 1 gm Magnesium Sulfate gm 1 gm In Amino Acid 5%- D15w 1,000 ml @ 85 mls/hr IV .BY DURATION ROBERT Rx#: [id number] Sodium Chloride 0.9% 1, 350 000 ml @ 50 mls/hr IV . Q20H ROBERT Rx#:[id number] Output: Urine 1600 1000 Other: Voiding Method Indwelling Catheter Indwelling Catheter - Exam Physical Exam: Revealed a 70-year-old white male in no distress. Head: Atraumatic, normocephalic. HEENT:[Neck is supple.] [No neck masses.] [No thyromegaly.] [No JVD.] Chest: [Bibasilar crackles noted, right more so than left, no rhonchi and no wheezes. Cardiac Exam: [Normal S1 and S2, no S3 gallop, no murmur.] Abdomen: [Soft, nontender, no megaly, no rebound, no guarding, normal bowel sounds.] Extremities: [No clubbing, no edema, no cyanosis.] Neurological Exam: [No focal neurologic deficit.] Alert oriented 3. Psychiatric: Normal mood affect and normal mental status examination - Labs CBC & Chem 7: 07/05/20 09:02 07/07/20 10:24 Labs: Abnormal Lab Results - Last 24 Hours (Table) 07/06/20 07/06/20 07/06/20 Range/Units 12:03 12:37 16:47 POC Glucose (mg/dL) 173 H 253 H (75-99) mg/dL Lactate Dehydrogenase 1056 H (313-618) U/L C-Reactive Protein 7.7 H (<1.0) mg/dL 07/07/20 07/07/20 Range/Units 00:00 06:05 POC Glucose (mg/dL) 205 H 170 H (75-99) mg/dL Lactate Dehydrogenase (313-618) U/L C-Reactive Protein (<1.0) mg/dL Assessment and Plan Assessment: Sepsis secondary to Acute Covid -19 pneumonia Acute hypoxic respiratory failure secondary to the above Acute renal failure secondary to the above Coronary artery disease with history of CT,stent placement History of Gout Hypertension Chronic paroxysmal atrial fibrillation Chronic systolic CHF, EF 35-40% Recommendation: Out of the window for REM. Continue the Covid 19 cocktail. Continue Lovenox and Decadron. Titrate FiO2 accordingly. We'll recommend venous Doppler of the lower extremities. Continue to monitor renal profile. We will continue to follow.
[2020-07-07 18:08] LABS: Glucose,Whole Blood 210 mg/dL (75-99)
[2020-07-07] MEDS: ATORVASTATIN 10 MG TAB PO SCH (21:42)
[2020-07-07] MEDS: OLANZapine 7.5 MG TAB PO SCH (21:42)
[2020-07-07 23:45] LABS: Glucose,Whole Blood 191 mg/dL (75-99)
[2020-07-08 06:33] LABS: Glucose,Whole Blood 185 mg/dL (75-99)
[2020-07-08] MEDS: CALCIUM GLUCONATE IV SCH ×14 (06:39→18:09)
[2020-07-08] MEDS: SODIUM PHOSPHATE IV SCH ×14 (06:39→18:09)
[2020-07-08] MEDS: [UNRECOGNIZED DRUG - OTHER] IV SCH ×14 (06:39→18:09)
[2020-07-08] MEDS: SODIUM ACETATE IV SCH ×14 (06:39→18:09)
[2020-07-08] MEDS: INSULIN DETEMIR (LEVEMIR) 100 UNIT/ML SYR SQ SCH (06:42)
[2020-07-08] MEDS: INSULIN ASPART (NovoLOG) 100 UNIT/ML VIAL SQ SCH ×3 (06:43→18:09)
--- NOTE | 2020-07-08 07:08 | XR ---
EXAMINATION TYPE: XR chest 1V portable DATE OF EXAM: 07/08/2020 CLINICAL HISTORY: Difficulty breathing progress study. TECHNIQUE: Single AP portable upright view of the chest is obtained. COMPARISON: Chest x-ray from one day earlier and older studies. FINDINGS: Stable left-sided PICC line. Multifocal and confluent reticular opacities greatest in the periphery and lung bases bilaterally are redemonstrated. Cardiac silhouette size stable and upper limits of normal with atherosclerotic mccullough e aortic knob. Osseous structures are intact. IMPRESSION: Persistent bilateral multifocal an confluent reticular opacities consistent with covid-19 infection. No significant change from one day earlier.
[2020-07-08] MEDS: ALBUTEROL HFA INHALER INHALATION PRN ×4 (08:22→20:41)
[2020-07-08 08:42] LABS: African American GFR (CKD) >90 (>60 ml/min/1.73 sqM); Anion Gap 5 mmol/L; Blood Urea Nitrogen 33 mg/dL (9-20); Calcium 8.4 mg/dL (8.4-10.2); Carbon Dioxide 24 mmol/L (22-30); Chloride 105 mmol/L (98-107); Glucose 157 mg/dL (74-99); Non-African American GFR(CKD) >90 (>60 ml/min/1.73 sqM); Phosphorus 3.7 mg/dL (2.5-4.5); Potassium 3.9 mmol/L (3.5-5.1); Sodium 134 mmol/L (137-145)
[2020-07-08] MEDS: DEXAMETHASONE SOD PHOSPHATE 10 MG/ML 1 ML VIAL IV SCH (09:34)
[2020-07-08] MEDS: ENOXAPARIN 60 MG/0.6 ML SYRINGE SQ SCH ×2 (09:34→22:08)
[2020-07-08] MEDS: FAT EMULSION 20% 250 ML in EMPTY BAG 1 BAG IV SCH (09:34)
--- NOTE | 2020-07-08 11:06 | P.PN ---
Subjective Progress Note Date: 07/08/20 Acute hypoxemic respiratory failure secondary to CoVID 19 pneumonitis This is a 70-year-old gentleman that was seen in the emergency room on June 21. He was sent into the emergency room after being seen by his primary care doctor because of increasing shortness of breath, and concerns that the patient might have COVID 19. In addition to shortness of breath, the patient states he's been having lots of chest congestion, and is been coughing. When he coughs, it is painful in his chest. He has been sick for at least 2 weeks. In addition, he has muscle aches and joint aches, weakness and fatigue, and fever and chills. Currently, he is on a nonrebreather mask. Saturations are 92%. His primary care physician Dr. Vijay Encarnacion. He was not receiving any IV fluids. His primary medical problems include atrial fibrillation, coronary artery disease, hyperlipidemia, hypertension, gastroesophageal reflux disease, and prior myocardial infarction. The patient is a lifelong nontobacco user. White count is 4.9, hemoglobin 13.5, hematocrit 39.5, platelet count 92,000. PTT 61.3. D- dimer 2.41. Sodium 132, potassium 4.8, chloride 105, CO2 18, anion gap 9, BUN and creatinine 52 and 2.05. Calcium 7.6, AST 156, pO2 102, LDH 2018. C- reactive protein 158. I was not able to look at the chest x-ray. There is apparently a partially occlusive opacity at the right lung base consistent with acute pneumonic process. CT angiogram was not performed. Patient was reevaluated today on 06/23/2020, patient is feeling better today compared to how he felt yesterday. Patient is on high flow cannula running at 15 L/m, his O2 saturation is in the mid to high 80s he is on 100% FiO2 basically. His chest x-ray does not seem to be impressive, he does have consolidative opacity in the right lung base consistent with acute pneumonic process. Left lung is relatively clear. No significant pulmonary congestion. D-dimer is 2.56. Renal profile is not good enough for performing a CT angiogram of the chest, however I will recommend bilateral venous Doppler on this patient just to make sure we were not dealing with thromboembolic process. Again the patient tells me that his feeling better today compared to how he felt yesterday. Clinically improving. Patient was reevaluated today on 06/24/2020, patient remains on high flow oxygen. He is on 15 L high flow cannula, and his O2 saturations 92% at best. Patient continues to have shortness of breath, intermittent episodes of cough. He has no fever, his vital signs are relatively stable. During my evaluation, patient was constantly coughing. CBC is relatively normal electrolytes are normal BUN is 52 creatinine 1.45. LDH is elevated at 1586. Venous Doppler yesterday was negative. Chest x-ray on admission showed consolidation at the right lung base. I also suspect some consolidation at the left base/retrocardiac area. Progress note dated 06/25/2020. Currently, the patient was on BiPAP and on percent. Earlier today, he desaturated, and the nurses had a hard time getting his saturations back up. We did do a blood gas on the patient. PO2 was 63, pCO2 was 33, pH was 7.44. That was on 100% on the BiPAP. White count 14.8, hemoglobin hematocrit and platelet count all normal. Sodium 136, potassium 4.9, chlorides 107, CO2 20, anion gap 9, BUN 45, creatinine 1.28. Chest x-ray today showed diffuse bilateral patchy infiltrates which are stable. Yesterday, he was on high flow nasal O2 at 15 L/m. Progress note dated 06/26/2020. 70-year-old male, currently on BiPAP, at 16/6 and 80%. His saturations were good, so the FiO2 was dropped from 80% down to 60%. The patient appears to be doing reasonably well, although he did become somewhat tachypnea today when he was being evaluated here. Saturations are 90% on the 60% FiO2. Temperature is 98.1, and blood pressure 173/104. White count 14.9, and hemoglobin, hematocrit, and platelet count are all normal. Sodium 135, potassium 5.2, chlorides 106, CO2 18, anion gap 11, BUN 38, creatinine 1.23. Chest x-ray from June 25, shows bilateral patchy infiltrates. The patient is seen today 06/27/2020 in follow-up on the regular medical floor. He is currently resting fairly comfortably in bed. He is maintaining O2 saturation in the 90s on BiPAP 16/6 and 60% FiO2. 0.9 normal saline at 50 MLS per hour. Chest x-ray continues to show patchy bilateral infiltrates compatible with superimposed interstitial pneumonia. White count 8.3. Hemoglobin 13.4. Sodium 139. Potassium 5.6. Creatinine 1.13. He is continued on dexamethasone, Xarelto, vitamin supplements. The patient is seen today 06/28/2020 follow-up on the selective care unit. He is currently sitting up in bed. Remains on BiPAP 16/6 and 100% FiO2 maintaining O2 saturation the high 80s low 90s. He is 0.9 normal saline at 50 MLS per hour. He is now on Lovenox, dexamethasone, vitamin supplements. PICC line placed today. The patient is seen today 06/29/2020 follow-up on the selective care unit. He remains on BiPAP 16/6 and 100% FiO2 to maintain O2 saturations in the low 90s. He is afebrile. Currently being nourished with TPN via PICC line. 0.9 normal saline at 50 ML's per hour. Blood cultures reveal no growth. Sodium 140. Potassium 5.1. Creatinine 1.18. Glucose 125. He remains on dexamethasone, Lovenox, vitamin supplements. The patient is seen today 06/30/2020 follow-up on the selective care unit. He is currently resting fairly comfortably in bed. Remains on BiPAP 16/6 at 100% FiO2. He is being nourished with TPN and lipids via PICC line. 0.9 normal saline at 50 MLS per hour. He states he is still quite fatigued but improved today compared to yesterday. Cultures reveal no growth. D-dimer 10.2. Sodium 140. Potassium 5.2. Creatinine 0.99. LDH 1591. C-reactive protein 53.8. He remains on therapeutic Lovenox, dexamethasone, vitamin supplements. The patient is seen today 07/01/2020 in follow-up on the selective care unit. He is resting comfortably in bed. Continued on BiPAP 16/6 and 100% FiO2 to maintain O2 saturations in the high 80s low 90s. Chest x-ray continues to show scattered bilateral lung infiltrates which are stable compared to previous. Sodium 142. Potassium 4.8. Creatinine 0.95. Yesterday's d-dimer 10.23. Remains on therapeutic Lovenox at 100 mg subcu every 12 hours, Decadron, vitamin supplements. On today's evaluation of 07/02/2020 on seeing the patient for a follow-up. The patient remains on a BiPAP at a pressure of 16/6 cm of water and FiO2 of 80%. The patient is also receiving TPN for nutritional support. Therapeutic dose of Lovenox. His d-dimer was quite elevated at 10.2, normal renal function, normal electrolytes, CRP was elevated at 53 with an LDH level of 1591. Most recent chest x-ray from 07/01/2030 showing peripherally located infiltrates bilaterally. The patient is able to generate tidal volume of around 370 on the BiPAP machine. His extremities around 28. He is very weak. He cannot tolerate being off the BiPAP as the patient immediately desaturates even was taken pills or sips of water. He remains on TPN for nutritional support. His symptoms of his blood work today, he has white cell count of 9.8 with a hemoglobin of 12, sodium is 139 and a creatinine of 0.9. His current pulse ox on the percent on above-mentioned BiPAP setting with an FiO2 of 80%.Inflammatory markers are still elevated. D-dimer is at 5 and the patient also has an LDH level of 1009 with a CRP of 143.The chest x-ray from yesterday was showing worsening in the bilateral lower lobe pulmonary infiltrates especially in the right lower lobe. 07/03/2020 the patient remains on BiPAP at a pressure of 16/6 with an FiO2 of 80% and this is essentially the same setting as yesterday. His current vitals show a pulse ox of 94% on above-mentioned ventilator setting. He is afebrile. Breathing is nonlabored. He is still on TPN for nutritional support. His chest x-ray from 07/01/2020 showed peripheral pulmonary infiltrates consistent with Coumadin related pneumonia. No repeat x-rays since then. The patient remains considerably weak. His blood work from today showing no major electrolyte abnormalities. His LDH level was dropping yesterday down to 1009. He is still on Decadron 6 mg IV every 24 hours. He is also on Lovenox 45 mg subcu every 12 hours. On the BiPAP machine, degenerative tidal volumes around 400. 06/03/2020 this morning the patient is off the BiPAP and the patient is currently on a high flow oxygen 60 L with an FiO2 of 86%. The patient is also using 100% nonrebreather facemask. His current pulse ox is around 91%. He has developed skin breaks and ulceration from his BiPAP mask and is currently off the BiPAP. He is resting comfortably in bed. He is still on Lovenox 45 mg subcu every 12 hours. There is on steroids and the patient is receiving Decadron 6 mg IV every 24 hours. The patient is also on TPN for nutritional support. LDH level is at 893 which is lower than the CRP level is down to 50. He is quite weak and debilitated. His white cell count of 6.8 with a hemoglobin of 12.3. No fever. No other new complaints otherwise for now. Most recent d- dimer was at 5 from 07/02/2020. 07/05/2020, the patient remains on BiPAP. The patient was on high flow oxygen yesterday and desaturated and he decompensated and he was switched to a BiPAP at a pressure of 16/6 with an FiO2 of 80%. This occurred when the patient on was trying to have some breakfast earlier this morning. He was on high flow oxygen. He dropped his oxygen saturations significantly and he was very slow in recovery. At that point, he was switched to a BiPAP. His current pulse ox is 90%. He is quite lethargic and somnolent. He is unable to eat and he has TPN for nutritional support. He continues to be on Decadron 6 mg IV every 24 hours. He is also on Lovenox 45 mg subcutaneously every 12 hours. On his blood work, he had a d-dimer of 6.49 which is slightly higher than the white cell count is at 8.6 with a hemoglobin of 12.8. TPN is current to being administered for nutritional support. No other significant events , otherwise his night was uneventful.. The PICC line is in the left upper extremity. The patient also has a Kwan catheter in place. Each in relating a tidal volume of 550 and his respiratory rate is currently in the mid 30s. He seems to be quite comfortable. He is however lethargic. 07/06/2020, the patient is on a BiPAP at a pressure of 16/6 with an FiO2 of 100%. Pulse ox is currently at around 88%. He was having some oxygen desaturations and the patient was brought up to 100% on her BiPAP FiO2. The patient's subsequent reading in a pulse ox in the order of 91%. Remains on TPN for nutritional support. Remains on Decadron 6 mg IV every 24 hours. Remains on Lovenox 45 mg subcu every 12 hours. Blood work shows a d-dimer of 5.64. No electrolyte abnormalities. Condition is essentially unchanged and probably the same as yesterday. Still on Levemir insulin 10 units along with a sliding scale coverage. Blood sugars are adequate for now. He does have a PICC line in left upper extremity. He has a Kwan catheter in place. At around 10:00 this morning, the patient was trialed on the percent nonrebreather with a high flow oxygen at 60 L with an FiO2 of 90%. He desaturated to the low 60s and he was placed accordingly back on BiPAP. 07/07/2020 the patient is a same BiPAP setting which is 60/6 with an FiO2 of 95%. Earlier this morning she was trialed on high flow oxygen with 60 L and FiO2 of 90% and he decompensated and he became profoundly hypoxic and he had to be placed back on the BiPAP. His current pulse ox in the low 90s. He remains on IV Decadron 6 and the rescue 24 hours. He remains on Lovenox 45 mg subcu every 12 hours. Chest x-ray from today is showing stable bilateral interstitial pulmonary infiltrates with some worsening consolidation of the left lower lobe. Meanwhile, the patient is still receiving TPN for nutritional support. He is unable to take oral intake because of his extreme BiPAP dependence. D-dimer is at 4.06 and the patient is on Lovenox 45 mg subcu every 12 hours. He has also LDH level of 962, CRP level is at 8.3, electrolytes are all within normal limits. Unfortunately, he is still doing poorly and is not showing any signs of recovery. He remains on Levemir insulin 10 units daily along with a sliding- scale coverage. He has a Kwan catheter in place. Respiratory rate is in the mid 30s. He is quite lethargic. 2020, the patient continues to be on a BiPAP at a pressure of 16/6 with an FiO2 of 95%. Awake and alert. Slightly tachypneic. Pulse ox is 89% on the above-mentioned BiPAP setting. Minute ventilation as 40 L as we were seeing the patient and his minute ventilation with a. Otherwise his aspirate has been in the high 20s low 30 range. Whenever he sleeps, his respiratory rate goes down. He wants to stay on the BiPAP and he doesn't want to transition to the high flow oxygen today. Repeat chest x-ray was done and the findings are essentially stable with diffuse bilateral pulmonary infiltrates. No evidence of any pneumothorax. No interval progression or worsening his chest x-ray findings. Meanwhile, his blood work shows no major abnormalities. Blood sugars are not elevated. The patient remains on TPN for nutrition support and the patient remains on Decadron IV every 24 hours on Lovenox 45 mg subcu every 12 hours. D- dimer level is at 4.06. Objective - Vital Signs Vital signs: Vital Signs Temp 98.3 F 07/07/20 20:00 Pulse 55 L 07/08/20 04:00 Resp 22 07/08/20 04:00 BP 132/84 07/08/20 04:00 Pulse Ox 94 L 07/08/20 04:00 Intake & Output 07/07/20 07/08/20 07/08/20 18:59 06:59 18:59 Intake Total 1841 Output Total 2300 650 Balance -2300 1191 Weight 94 kg Intake: Intake, IV Titration 1841 Amount Mvi, Adult No.4 with Vit 1041 K 10 ml Trace (Conc-1Ml/ Dose) 1 ml Sodium Acetate 30 meq Sodium Phosphate 9 mmol Calcium Gluconate 1 gm Magnesium Sulfate gm 1 gm In Amino Acid 5%- D15w 1,000 ml @ 85 mls/hr IV .BY DURATION ROBERT Rx#: [id number] Sodium Chloride 0.9% 1, 800 000 ml @ 50 mls/hr IV . Q20H ROBERT Rx#:[id number] Output: Urine 2300 650 Other: Voiding Method Indwelling Catheter Indwelling Catheter - Exam GENERAL EXAM: Alert, 70-year-old gentleman, on BIPAP 16/6 with fio2 95% HEAD: Normocephalic. EYES: Normal reaction of pupils, equal size. NOSE: Clear with pink turbinates. Skin breaks over that was related to a BiPAP mask and the patient has developed a dry ulcer. THROAT: No erythema or exudates. NECK: No masses, no JVD. CHEST: No chest wall deformity. LUNGS: Equal air entry with crackles in the bilateral posterior bases. CVS: S1 and S2 normal with no audible murmur, regular rhythm. ABDOMEN: No hepatosplenomegaly, normal bowel sounds, no guarding or rigidity. SPINE: No scoliosis or deformity SKIN: No rashes CENTRAL NERVOUS SYSTEM: No focal deficits, tone is normal in all 4 extremities. EXTREMITIES: There is no peripheral edema. No clubbing, no cyanosis. P eripheral pulses are intact. - Labs CBC & Chem 7: 07/05/20 09:02 07/08/20 07:54 Labs: Abnormal Lab Results - Last 24 Hours (Table) 07/07/20 07/07/20 07/07/20 Range/Units 10:24 10:24 12:05 D-Dimer 4.06 H (<0.60) mg/L FEU Sodium 134 L (137-145) mmol/L BUN 33 H (9-20) mg/dL Glucose 138 H (74-99) mg/dL POC Glucose (mg/dL) 169 H (75-99) mg/dL Lactate Dehydrogenase 962 H (313-618) U/L C-Reactive Protein 8.3 H (<1.0) mg/dL 07/07/20 07/07/20 07/08/20 Range/Units 18:06 23:38 06:31 D-Dimer (<0.60) mg/L FEU Sodium (137-145) mmol/L BUN (9-20) mg/dL Glucose (74-99) mg/dL POC Glucose (mg/dL) 210 H 191 H 185 H (75-99) mg/dL Lactate Dehydrogenase (313-618) U/L C-Reactive Protein (<1.0) mg/dL 07/08/20 Range/Units 07:54 D-Dimer (<0.60) mg/L FEU Sodium 134 L (137-145) mmol/L BUN 33 H (9-20) mg/dL Glucose 157 H (74-99) mg/dL POC Glucose (mg/dL) (75-99) mg/dL Lactate Dehydrogenase (313-618) U/L C-Reactive Protein (<1.0) mg/dL Assessment and Plan Plan: 1 Acute hypoxemic respiratory failure secondary to CoVID 19 pneumonia/pneum onitis. Outside the window for Remdesivir, and the patient remains on Decadron. The patient is utilizing BiPAP this morning at a pressure of 16/6 with an FiO2 of 90%. Note that the patient was given also Actemra 800 IV 1 yesterday the patient remains on Decadron. The patient remains very much BiPAP dependent. He does not want to transition to high flow oxygen because of respiratory decompens ation and this was tried yesterday and failed. He is on TPN for nutritional support. 2 History of atrial fibrillation 3 Coronary disease with previous stent placement 4 Gastroesophageal reflux disease 6 Hypertension 7 Hyperlipidemia 8 Rheumatic fever, history of 9 History of gout 10 Acute kidney injury, recovered and the patient's renal function is also normalized Plan: Continue BiPAP for today. Wean down the FiO2 as tolerated to maintain saturation above 90% TPN via PICC line Remains on therapeutic Lovenox and drop the dose to 45 mg subcu every 12 hours vitamin supplements, currently on Decadron 6 mg IV every 24 hours Tocilizumab was given 800 mg IV 1 , Keep nothing by mouth for now and continue with TPN No much room for further weaning. T . We'll continue the BiPAP for now. We'll continue to follow. Repeat chest x-ray in the morning. High likelihood for respiratory failure requiring intubation mechanical ventilation. The patient has been in the hospital for more than 2 weeks. No interval worsening, no interval improvement in his condition and has remained essentially unchanged and stable over the past 1 week. We'll continue to follow,
--- NOTE | 2020-07-08 16:03 | P.PN ---
Subjective Progress Note Date: 07/08/20 Principal diagnosis: Acute hypoxic respiratory failure secondary to acute covid 19 pneumonitis. 70-year-old gentleman that was seen in the emergency room on June 21. He was sent into the emergency room after being seen by his primary care doctor because of increasing shortness of breath, and concerns that the patient might have COVID 19. In addition to shortness of breath, the patient states he's been having lots of chest congestion, and is been coughing. When he coughs, it is painful in his chest. He has been sick for at least 2 weeks. In addition, he has muscle aches and joint aches, weakness and fatigue, and fever and chills. Currently, he is on a nonrebreather mask. Saturations are 92%. His primary care physician Dr. Vijay Encarnacion. He was not receiving any IV fluids. His primary medical problems include atrial fibrillation, coronary artery disease, hyperl ipidemia, hypertension, gastroesophageal reflux disease, and prior myocardial infarction. The patient is a lifelong nontobacco user. White count is 4.9, hemoglobin 13.5, hematocrit 39.5, platelet count 92,000. PTT 61.3. D-dimer 2.41. Sodium 132, potassium 4.8, chloride 105, CO2 18, anion gap 9, BUN and creatinine 52 and 2.05. Calcium 7.6, AST 156, pO2 102, LDH 2018. C-reactive protein 158. I was not able to look at the chest x-ray. There is apparently a partially occlusive opacity at the right lung base consistent with acute pneumonic process. CT angiogram was not performed. 06/23/2020 patient is seen and evaluated in the room at bedside reports feeling better today compared to how he felt yesterday. Patient is on high flow cannula running at 15 L/m, his O2 saturation is in the mid to high 80s he is on 100% FiO2 basically. His chest x-ray does not seem to be impressive, he does have consolidative opacity in the right lung base consistent with acute pneumonic process. Left lung is relatively clear. No significant pulmonary congestion. D-dimer is 2.56. Unable to perform CT angiogram of the chest due to compromised renal function, however I will recommend bilateral venous Doppler on this patient just to make sure we were not dealing with thromboembolic process. Again the patient tells me that his feeling better today compared to how he felt yesterday. Clinically improving. 06/24/2020 Patient is seen and evaluated in room at bedside; remains on O2 per H HF NC at 15 L along with nonrebreather mask with O2 saturation around 88%; cardiology is consulted to evaluate patient for his request Cardiology evaluated patient and have recommended to resume home anticoagulation therapy in form of Xarelto at 15 mg daily and discontinue Lovenox; lisinopril is recommended to be held due to mild AK I and hyperkalemia; we will continue to monitor renal function and electrolytes closely; continue with supplemental oxyg en with plans to wean off as tolerated; patient remains on subcu Lovenox and Decadron along with vitamins 07/07/2020 patient is seen and evaluated at bedside ; remains on BiPAP setting which is 60/6 with an FiO2 of 95%. Patient failed a trial of transition to high flow o xygen with 60 L and FiO2 of 90% and he decompensated and he became profoundly hypoxic and he had to be placed back on the BiPAP. His current pulse ox in the low 90s. He remains on IV Decadron 6 and the rescue 24 hours. He remains on Lovenox 45 mg subcu every 12 hours. Chest x-ray from today is showing stable bilateral interstitial pulmonary infiltrates with some worsening consolidation of the left lower lobe. Meanwhile, the patient is still receiving TPN for nutritional support. He is unable to take oral intake because of his extreme BiPAP dependence. D-dimer is at 4.06 and the patient is on Lovenox 45 mg subcu every 12 hours. He has also LDH level of 962, CRP level is at 8.3, electrolytes are all within normal limits. Unfortunately, he is still doing poorly and is not showing any signs of recovery. He remains on Levemir insulin 10 units daily along with a sliding-scale coverage. He has a Kwan catheter in place. Respiratory rate is in the mid 30s. He is quite lethargic. 07/08/2020 Patient is seen in ICU; remains on a BiPAP; with an FiO2 of 95%. Awake and alert. Slightly tachypneic. Pulse ox is 89% on the above-mentioned BiPAP setting. He wants to stay on the BiPAP and he doesn't want to transition to the high flow oxygen today. Chest x-ray was done and the findings are essentially stable with diffuse bilateral pulmonary infiltrates. No evidence of any pneumothorax. No interval progression or worsening his chest x-ray findings. Meanwhile, his blood work shows no major abnormalities. Blood sugars are not elevated. The patient remains on TPN for nutrition support and the patient remains on Decadron IV every 24 hours on Lovenox 45 mg subcu every 12 hours. D-dimer level is at 4.06. Objective - Vital Signs Vital signs: Vital Signs Temp 98.3 F 07/07/20 20:00 Pulse 55 L 07/08/20 04:00 Resp 22 07/08/20 04:00 BP 132/84 07/08/20 04:00 Pulse Ox 94 L 07/08/20 04:00 Intake & Output 07/07/20 07/08/20 07/08/20 18:59 06:59 18:59 Intake Total 1841 Output Total 2300 650 Balance -2300 1191 Weight 94 kg Intake: Intake, IV Titration 1841 Amount Mvi, Adult No.4 with Vit 1041 K 10 ml Trace (Conc-1Ml/ Dose) 1 ml Sodium Acetate 30 meq Sodium Phosphate 9 mmol Calcium Gluconate 1 gm Magnesium Sulfate gm 1 gm In Amino Acid 5%- D15w 1,000 ml @ 85 mls/hr IV .BY DURATION ROBERT Rx#: [id number] Sodium Chloride 0.9% 1, 800 000 ml @ 50 mls/hr IV . Q20H ROBERT Rx#:[id number] Output: Urine 2300 650 Other: Voiding Method Indwelling Catheter Indwelling Catheter - Exam Physical Exam: Revealed a 70-year-old white male in no distress. Head: Atraumatic, normocephalic. HEENT:[Neck is supple.] [No neck masses.] [No thyromegaly.] [No JVD.] Chest: [Bibasilar crackles noted, right more so than left, no rhonchi and no wheezes. Cardiac Exam: [Normal S1 and S2, no S3 gallop, no murmur.] Abdomen: [Soft, nontender, no megaly, no rebound, no guarding, normal bowel sounds.] Extremities: [No clubbing, no edema, no cyanosis.] Neurological Exam: [No focal neurologic deficit.] Alert oriented 3. Psychiatric: Normal mood affect and normal mental status examination - Labs CBC & Chem 7: 07/05/20 09:02 07/08/20 07:54 Labs: Abnormal Lab Results - Last 24 Hours (Table) 07/07/20 07/07/20 07/07/20 Range/Units 10:24 10:24 12:05 D-Dimer 4.06 H (<0.60) mg/L FEU Sodium 134 L (137-145) mmol/L BUN 33 H (9-20) mg/dL Glucose 138 H (74-99) mg/dL POC Glucose (mg/dL) 169 H (75-99) mg/dL Lactate Dehydrogenase 962 H (313-618) U/L C-Reactive Protein 8.3 H (<1.0) mg/dL 07/07/20 07/07/20 07/08/20 Range/Units 18:06 23:38 06:31 D-Dimer (<0.60) mg/L FEU Sodium (137-145) mmol/L BUN (9-20) mg/dL Glucose (74-99) mg/dL POC Glucose (mg/dL) 210 H 191 H 185 H (75-99) mg/dL Lactate Dehydrogenase (313-618) U/L C-Reactive Protein (<1.0) mg/dL 07/08/20 Range/Units 07:54 D-Dimer (<0.60) mg/L FEU Sodium 134 L (137-145) mmol/L BUN 33 H (9-20) mg/dL Glucose 157 H (74-99) mg/dL POC Glucose (mg/dL) (75-99) mg/dL Lactate Dehydrogenase (313-618) U/L C-Reactive Protein (<1.0) mg/dL Assessment and Plan Assessment: Sepsis secondary to Acute Covid -19 pneumonia Acute hypoxic respiratory failure secondary to the above Acute renal failure secondary to the above Coronary artery disease with history of NH,stent placement History of Gout Hypertension Chronic paroxysmal atrial fibrillation Chronic systolic CHF, EF 35-40% Recommendation: Out of the window for REM. Continue the Covid 19 cocktail. Continue Lovenox and Decadron. Titrate FiO2 accordingly. We'll recommend venous Doppler of the lower extremities. Continue to monitor renal profile. We will continue to follow.
[2020-07-08] MEDS: ZINC SULFATE 220 MG CAP PO SCH (16:32)
[2020-07-08] MEDS: METOPROLOL TARTRATE 25 MG TAB PO SCH ×2 (16:32→22:09)
[2020-07-08] MEDS: FAMOTIDINE 20 MG TAB PO SCH ×2 (16:32→22:08)
[2020-07-08] MEDS: allopurinoL 100 MG TAB PO SCH (16:32)
[2020-07-08] MEDS: CHOLECALCIFEROL 25 MCG (1000 IU) TABLET PO SCH (16:32)
[2020-07-08] MEDS: ASCORBIC ACID 500 MG TAB PO SCH ×2 (16:32→22:08)
[2020-07-08 18:09] LABS: Glucose,Whole Blood 199 mg/dL (75-99)
[2020-07-08] MEDS: SODIUM CHLORIDE 0.9% 1,000 ML IV SCH (18:10)
[2020-07-08] MEDS: OLANZapine 7.5 MG TAB PO SCH (22:08)
[2020-07-08] MEDS: ATORVASTATIN 10 MG TAB PO SCH (22:08)
[2020-07-09 00:03] LABS: Glucose,Whole Blood 151 mg/dL (75-99)
[2020-07-09] MEDS: INSULIN ASPART (NovoLOG) 100 UNIT/ML VIAL SQ SCH ×4 (00:53→17:34)
[2020-07-09 06:23] LABS: Glucose,Whole Blood 125 mg/dL (75-99)
[2020-07-09] MEDS: INSULIN DETEMIR (LEVEMIR) 100 UNIT/ML SYR SQ SCH (06:32)
[2020-07-09] MEDS: SODIUM ACETATE IV SCH ×21 (06:33→20:08)
[2020-07-09] MEDS: CALCIUM GLUCONATE IV SCH ×21 (06:33→20:08)
[2020-07-09] MEDS: SODIUM PHOSPHATE IV SCH ×21 (06:33→20:08)
[2020-07-09] MEDS: [UNRECOGNIZED DRUG - OTHER] IV SCH ×14 (06:33→17:14)
[2020-07-09] MEDS: ALBUTEROL HFA INHALER INHALATION PRN ×3 (08:17→15:40)
[2020-07-09] MEDS: CHOLECALCIFEROL 25 MCG (1000 IU) TABLET PO SCH (08:26)
[2020-07-09] MEDS: allopurinoL 100 MG TAB PO SCH (08:26)
[2020-07-09] MEDS: FAMOTIDINE 20 MG TAB PO SCH ×2 (08:26→20:09)
[2020-07-09] MEDS: ZINC SULFATE 220 MG CAP PO SCH (08:26)
[2020-07-09] MEDS: METOPROLOL TARTRATE 25 MG TAB PO SCH (08:26)
[2020-07-09] MEDS: FAT EMULSION 20% 250 ML in EMPTY BAG 1 BAG IV SCH (08:27)
[2020-07-09] MEDS: DEXAMETHASONE SOD PHOSPHATE 10 MG/ML 1 ML VIAL IV SCH (08:27)
[2020-07-09] MEDS: ENOXAPARIN 60 MG/0.6 ML SYRINGE SQ SCH ×2 (08:27→20:09)
[2020-07-09] MEDS: ASCORBIC ACID 500 MG TAB PO SCH ×2 (08:28→20:09)
[2020-07-09 09:40] LABS: African American GFR (CKD) >90 (>60 ml/min/1.73 sqM); Anion Gap 6 mmol/L; Blood Urea Nitrogen 39 mg/dL (9-20); Calcium 8.3 mg/dL (8.4-10.2); Carbon Dioxide 22 mmol/L (22-30); Chloride 106 mmol/L (98-107); Glucose 103 mg/dL (74-99); Non-African American GFR(CKD) >90 (>60 ml/min/1.73 sqM); Phosphorus 3.9 mg/dL (2.5-4.5); Potassium 4.1 mmol/L (3.5-5.1); Sodium 134 mmol/L (137-145)
[2020-07-09 11:47] LABS: Glucose,Whole Blood 164 mg/dL (75-99)
--- NOTE | 2020-07-09 15:06 | P.PN ---
Subjective Progress Note Date: 07/09/20 Principal diagnosis: Acute hypoxic respiratory failure secondary to acute covid 19 pneumonitis. This is a 70-year-old gentleman that was seen in the emergency room on June 21. He was sent into the emergency room after being seen by his primary care doctor because of increasing shortness of breath, and concerns that the patient might have COVID 19. In addition to shortness of breath, the patient states he's been having lots of chest congestion, and is been coughing. When he coughs, it is painful in his chest. He has been sick for at least 2 weeks. In addition, he has muscle aches and joint aches, weakness and fatigue, and fever and chills. Currently, he is on a nonrebreather mask. Saturations are 92%. His primary care physician Dr. Vijay Encarnacion. He was not receiving any IV fluids. His primary medical problems include atrial fibrillation, coronary artery disease, hyperlipidemia, hypertension, gastroesophageal reflux disease, and prior myocardial infarction. The patient is a lifelong nontobacco user. White count is 4.9, hemoglobin 13.5, hematocrit 39.5, platelet count 92,000. PTT 61.3. D- dimer 2.41. Sodium 132, potassium 4.8, chloride 105, CO2 18, anion gap 9, BUN and creatinine 52 and 2.05. Calcium 7.6, AST 156, pO2 102, LDH 2018. C- reactive protein 158. I was not able to look at the chest x-ray. There is apparently a partially occlusive opacity at the right lung base consistent with acute pneumonic process. CT angiogram was not performed. Patient was reevaluated today on 06/23/2020, patient is feeling better today compared to how he felt yesterday. Patient is on high flow cannula running at 15 L/m, his O2 saturation is in the mid to high 80s he is on 100% FiO2 basically. His chest x-ray does not seem to be impressive, he does have consolidative opacity in the right lung base consistent with acute pneumonic process. Left lung is relatively clear. No significant pulmonary congestion. D-dimer is 2.56. Renal profile is not good enough for performing a CT angiogram of the chest, however I will recommend bilateral venous Doppler on this patient just to make sure we were not dealing with thromboembolic process. Again the patient tells me that his feeling better today compared to how he felt yesterday. Clinically improving. Patient was reevaluated today on 06/24/2020, patient remains on high flow oxygen. He is on 15 L high flow cannula, and his O2 saturations 92% at best. Patient continues to have shortness of breath, intermittent episodes of cough. He has no fever, his vital signs are relatively stable. During my evaluation, patient was constantly coughing. CBC is relatively normal electrolytes are normal BUN is 52 creatinine 1.45. LDH is elevated at 1586. Venous Doppler yesterday was negative. Chest x-ray on admission showed consolidation at the right lung base. I also suspect some consolidation at the left base/retrocardiac area. Progress note dated 06/25/2020. Currently, the patient was on BiPAP and on percent. Earlier today, he desaturated, and the nurses had a hard time getting his saturations back up. We did do a blood gas on the patient. PO2 was 63, pCO2 was 33, pH was 7.44. That was on 100% on the BiPAP. White count 14.8, hemoglobin hematocrit and platelet count all normal. Sodium 136, potassium 4.9, chlorides 107, CO2 20, anion gap 9, BUN 45, creatinine 1.28. Chest x-ray today showed diffuse bilateral patchy infiltrates which are stable. Yesterday, he was on high flow nasal O2 at 15 L/m. Progress note dated 06/26/2020. 70-year-old male, currently on BiPAP, at 16/6 and 80%. His saturations were good, so the FiO2 was dropped from 80% down to 60%. The patient appears to be doing reasonably well, although he did become somewhat tachypnea today when he was being evaluated here. Saturations are 90% on the 60% FiO2. Temperature is 98.1, and blood pressure 173/104. White count 14.9, and hemoglobin, hematocrit, and platelet count are all normal. Sodium 135, potassium 5.2, chlorides 106, CO2 18, anion gap 11, BUN 38, creatinine 1.23. Chest x-ray from June 25, shows bilateral patchy infiltrates. The patient is seen today 06/27/2020 in follow-up on the regular medical floor. He is currently resting fairly comfortably in bed. He is maintaining O2 saturation in the 90s on BiPAP 16/6 and 60% FiO2. 0.9 normal saline at 50 MLS per hour. Chest x-ray continues to show patchy bilateral infiltrates compatible with superimposed interstitial pneumonia. White count 8.3. Hemoglobin 13.4. Sodium 139. Potassium 5.6. Creatinine 1.13. He is continued on dexamethasone, Xarelto, vitamin supplements. The patient is seen today 06/28/2020 follow-up on the selective care unit. He is currently sitting up in bed. Remains on BiPAP 16/6 and 100% FiO2 maintaining O2 saturation the high 80s low 90s. He is 0.9 normal saline at 50 MLS per hour. He is now on Lovenox, dexamethasone, vitamin supplements. PICC line placed today. The patient is seen today 06/29/2020 follow-up on the selective care unit. He remains on BiPAP 16/6 and 100% FiO2 to maintain O2 saturations in the low 90s. He is afebrile. Currently being nourished with TPN via PICC line. 0.9 normal saline at 50 ML's per hour. Blood cultures reveal no growth. Sodium 140. Potassium 5.1. Creatinine 1.18. Glucose 125. He remains on dexamethasone, Lovenox, vitamin supplements. The patient is seen today 06/30/2020 follow-up on the selective care unit. He is currently resting fairly comfortably in bed. Remains on BiPAP 16/6 at 100% FiO2. He is being nourished with TPN and lipids via PICC line. 0.9 normal saline at 50 MLS per hour. He states he is still quite fatigued but improved today compared to yesterday. Cultures reveal no growth. D-dimer 10.2. Sodium 140. Potassium 5.2. Creatinine 0.99. LDH 1591. C-reactive protein 53.8. He remains on therapeutic Lovenox, dexamethasone, vitamin supplements. The patient is seen today 07/01/2020 in follow-up on the selective care unit. He is resting comfortably in bed. Continued on BiPAP 16/6 and 100% FiO2 to maintain O2 saturations in the high 80s low 90s. Chest x-ray continues to show scattered bilateral lung infiltrates which are stable compared to previous. Sodium 142. Potassium 4.8. Creatinine 0.95. Yesterday's d-dimer 10.23. Remains on therapeutic Lovenox at 100 mg subcu every 12 hours, Decadron, vitamin supplements. On today's evaluation of 07/02/2020 on seeing the patient for a follow-up. The patient remains on a BiPAP at a pressure of 16/6 cm of water and FiO2 of 80%. The patient is also receiving TPN for nutritional support. Therapeutic dose of Lovenox. His d-dimer was quite elevated at 10.2, normal renal function, normal electrolytes, CRP was elevated at 53 with an LDH level of 1591. Most recent chest x-ray from 07/01/2030 showing peripherally located infiltrates bilaterally. The patient is able to generate tidal volume of around 370 on the BiPAP machine. His extremities around 28. He is very weak. He cannot tolerate being off the BiPAP as the patient immediately desaturates even was taken pills or sips of water. He remains on TPN for nutritional support. His symptoms of his blood work today, he has white cell count of 9.8 with a hemoglobin of 12, sodium is 139 and a creatinine of 0.9. His current pulse ox on the percent on above-mentioned BiPAP setting with an FiO2 of 80%.Inflammatory markers are still elevated. D-dimer is at 5 and the patient also has an LDH level of 1009 with a CRP of 143.The chest x-ray from yesterday was showing worsening in the bilateral lower lobe pulmonary infiltrates especially in the right lower lobe. 07/03/2020 the patient remains on BiPAP at a pressure of 16/6 with an FiO2 of 80% and this is essentially the same setting as yesterday. His current vitals show a pulse ox of 94% on above-mentioned ventilator setting. He is afebrile. Breathing is nonlabored. He is still on TPN for nutritional support. His chest x-ray from 07/01/2020 showed peripheral pulmonary infiltrates consistent with Coumadin related pneumonia. No repeat x-rays since then. The patient remains considerably weak. His blood work from today showing no major electrolyte abnormalities. His LDH level was dropping yesterday down to 1009. He is still on Decadron 6 mg IV every 24 hours. He is also on Lovenox 45 mg subcu every 12 hours. On the BiPAP machine, degenerative tidal volumes around 400. 06/03/2020 this morning the patient is off the BiPAP and the patient is currently on a high flow oxygen 60 L with an FiO2 of 86%. The patient is also using 100% nonrebreather facemask. His current pulse ox is around 91%. He has developed skin breaks and ulceration from his BiPAP mask and is currently off the BiPAP. He is resting comfortably in bed. He is still on Lovenox 45 mg subcu every 12 hours. There is on steroids and the patient is receiving Decadron 6 mg IV every 24 hours. The patient is also on TPN for nutritional support. LDH level is at 893 which is lower than the CRP level is down to 50. He is quite weak and debilitated. His white cell count of 6.8 with a hemoglobin of 12.3. No fever. No other new complaints otherwise for now. Most recent d- dimer was at 5 from 07/02/2020. 07/05/2020, the patient remains on BiPAP. The patient was on high flow oxygen yesterday and desaturated and he decompensated and he was switched to a BiPAP at a pressure of 16/6 with an FiO2 of 80%. This occurred when the patient on was trying to have some breakfast earlier this morning. He was on high flow oxygen. He dropped his oxygen saturations significantly and he was very slow in recovery. At that point, he was switched to a BiPAP. His current pulse ox is 90%. He is quite lethargic and somnolent. He is unable to eat and he has TPN for nutritional support. He continues to be on Decadron 6 mg IV every 24 hours. He is also on Lovenox 45 mg subcutaneously every 12 hours. On his blood work, he had a d-dimer of 6.49 which is slightly higher than the white cell count is at 8.6 with a hemoglobin of 12.8. TPN is current to being administered for nutritional support. No other significant events , otherwise his night was u neventful.. The PICC line is in the left upper extremity. The patient also has a Kwan catheter in place. Each in relating a tidal volume of 550 and his respiratory rate is currently in the mid 30s. He seems to be quite comfortable. He is however lethargic. 07/06/2020, the patient is on a BiPAP at a pressure of 16/6 with an FiO2 of 100%. Pulse ox is currently at around 88%. He was having some oxygen desaturations and the patient was brought up to 100% on her BiPAP FiO2. The patient's subsequent reading in a pulse ox in the order of 91%. Remains on TPN for nutritional support. Remains on Decadron 6 mg IV every 24 hours. Remains on Lovenox 45 mg subcu every 12 hours. Blood work shows a d-dimer of 5.64. No electrolyte abnormalities. Condition is essentially unchanged and probably the same as yesterday. Still on Levemir insulin 10 units along with a sliding scale coverage. Blood sugars are adequate for now. He does have a PICC line in left upper extremity. He has a Kwan catheter in place. At around 10:00 this morning, the patient was trialed on the percent nonrebreather with a high flow oxygen at 60 L with an FiO2 of 90%. He desaturated to the low 60s and he was pl aced accordingly back on BiPAP. 07/07/2020 the patient is a same BiPAP setting which is 60/6 with an FiO2 of 95%. Earlier this morning she was trialed on high flow oxygen with 60 L and FiO2 of 90% and he decompensated and he became profoundly hypoxic and he had to be placed back on the BiPAP. His current pulse ox in the low 90s. He remains on IV Decadron 6 and the rescue 24 hours. He remains on Lovenox 45 mg subcu every 12 hours. Chest x-ray from today is showing stable bilateral interstitial pulmonary infiltrates with some worsening consolidation of the left lower lobe. Meanwhile, the patient is still receiving TPN for nutritional support. He is unable to take oral intake because of his extreme BiPAP dependence. D-dimer is at 4.06 and the patient is on Lovenox 45 mg subcu every 12 hours. He has also LDH level of 962, CRP level is at 8.3, electrolytes are all within normal duran its. Unfortunately, he is still doing poorly and is not showing any signs of recovery. He remains on Levemir insulin 10 units daily along with a sliding- scale coverage. He has a Kwan catheter in place. Respiratory rate is in the mid 30s. He is quite lethargic. 2020, the patient continues to be on a BiPAP at a pressure of 16/6 with an FiO2 of 95%. Awake and alert. Slightly tachypneic. Pulse ox is 89% on the above-mentioned BiPAP setting. Minute ventilation as 40 L as we were seeing the patient and his minute ventilation with a. Otherwise his aspirate has been in the high 20s low 30 range. Whenever he sleeps, his respiratory rate goes down. He wants to stay on the BiPAP and he doesn't want to transition to the high flow oxygen today. Repeat chest x-ray was done and the findings are essentially stable with diffuse bilateral pulmonary infiltrates. No evidence of any pne umothorax. No interval progression or worsening his chest x-ray findings. Meanwhile, his blood work shows no major abnormalities. Blood sugars are not elevated. The patient remains on TPN for nutrition support and the patient remains on Decadron IV every 24 hours on Lovenox 45 mg subcu every 12 hours. D- dimer level is at 4.06. Patient was reevaluated today on 07/09/2020, remains on high flow oxygen using airvo and non-rebreather mask. Patient is on 94% FiO2 and 60 L flow per minute. Patient is about the same, not getting any better not getting any worse. He is noted to be slightly tachypneic. Has BiPAP at bedside, but not using it at present. Basic metabolic profile today is normal., Last LDH was trending down to 962 and C-reactive protein 8.3 Objective - Vital Signs Vital signs: Vital Signs Temp 97.4 F L 07/09/20 08:00 Pulse 83 07/09/20 14:00 Resp 20 07/09/20 14:00 BP 131/71 07/09/20 12:00 Pulse Ox 87 L 07/09/20 12:00 Intake & Output 07/08/20 07/09/20 07/09/20 18:59 06:59 18:59 Intake Total 2071 580 125 Output Total 1500 1800 Balance 571 580 -1675 Intake: Intake, IV Titration 1 360 Amount Mvi, Adult No.4 with Vit 1041 K 10 ml Trace (Conc-1Ml/ Dose) 1 ml Sodium Acetate 30 meq Sodium Phosphate 9 mmol Calcium Gluconate 1 gm Magnesium Sulfate gm 1 gm In Amino Acid 5%- D15w 1,000 ml @ 85 mls/hr IV .BY DURATION [facility] Rx#: [id number] Sodium Acetate 30 meq 1030 Sodium Phosphate 9 mmol Calcium Gluconate 1 gm Magnesium Sulfate gm 1 gm In Amino Acid 5%-D15w 1, 000 ml @ 85 mls/hr IV .BY DURATION [facility] Rx#: [id number] Sodium Chloride 0.9% 1, 360 000 ml @ 20 mls/hr IV . Q24H [facility] Rx#:[id number] Oral 0 220 125 Output: Urine 1500 1800 Other: Voiding Method Indwelling Catheter Indwelling Catheter Indwelling Catheter - Exam Physical Exam: Revealed a 70-year-old white male on high flow oxygen, noted to be in mild respiratory distress Head: Atraumatic, normocephalic. HEENT:[Neck is supple.] [No neck masses.] [No thyromegaly.] [No JVD.] Chest: [Bibasilar crackles noted, right more so than left, no rhonchi and no wheezes. Cardiac Exam: [Normal S1 and S2, no S3 gallop, no murmur.] Abdomen: [Soft, nontender, no megaly, no rebound, no guarding, normal bowel sounds.] Extremities: [No clubbing, no edema, no cyanosis.] Neurological Exam: [No focal neurologic deficit.] Alert oriented 3. Psychiatric: Normal mood affect and normal mental status examination - Labs CBC & Chem 7: 07/05/20 09:02 07/09/20 08:45 Labs: Abnormal Lab Results - Last 24 Hours (Table) 07/08/20 07/09/20 07/09/20 Range/Units 18:08 00:02 06:18 Sodium (137-145) mmol/L BUN (9-20) mg/dL Glucose (74-99) mg/dL POC Glucose (mg/dL) 199 H 151 H 125 H (75-99) mg/dL Calcium (8.4-10.2) mg/dL 07/09/20 07/09/20 Range/Units 08:45 11:35 Sodium 134 L (137-145) mmol/L BUN 39 H (9-20) mg/dL Glucose 103 H (74-99) mg/dL POC Glucose (mg/dL) 164 H (75-99) mg/dL Calcium 8.3 L (8.4-10.2) mg/dL Assessment and Plan Assessment: Impression: Acute hypoxic respiratory failure secondary to Covid 19 pneumonia. Patient was outside the window for REM, received toci, remains on Decadron. And he is requiring high FiO2 with O2 saturation being marginal. Chronic atrial fibrillation. Previous ND. And history of coronary artery disease. History of gout. Coronary artery disease and previous stent placement. GERD without esophagitis. Benign essential hypertension. Acute kidney injury, improved. Recommendation: Out of the window for REM. Continue the Covid 19 cocktail. Continue Lovenox and Decadron. Continue high flow oxygen and titrate accordingly. We will continue to follow. Time with Patient: Less than 30
--- NOTE | 2020-07-09 15:48 | P.PN ---
Subjective Progress Note Date: 07/09/20 This is 70-year-old gentleman with past medical history of hypertension, and gastroesophageal reflux disease, CAD, [place], chronic back pain with history of laminectomy and multiple other medical issues presented to the ER with history of fevers ,worsening shortness of breath. Patient had seen his PCP last week on Thursday the and was recommended to go for his covid test. Patient apparently never went for his test. Yesterday completed a tele visit with his PCP, Dr. Encarnacion, referred to the ER. Patient tested positive for Covid infection while in the ER. On admission patient hypoxic with O2 sat of 80% on room air, required nonrebreather to maintain O2 sats in the 90s to 100%. Febrile on admission with temperature 99.9, normal WBC. D-dimer 2.41, sodium 132, BUN 52, creatinine 2.05, ferritin 1556.7 total bili elevated on admission now within normal limits, mildly elevated LFTs, LDH 2411currently 2018, CRP 158.4. Given patient's renal function and respiratory status unable to proceed with CTA of chest or VQ to rule out PE, currently on heparin drip. Chest x-ray reported partially consolidative opacity in the right lung base consistent with acute pneumonic process. Telemetry sinus rhythm with fusion complexes and PACs with left axis deviation. Denies chest pain, palpitations. 06/25/2020 during the night and again this morning patient removing his oxygen, desatting into the high 40s, turning blue, return to 15 L high flow in addition to nonrebreather, O2 sats initially in the high 80s. As the morning progressed, only maintaining O2 sats in the low 80s and transitioned to BiPAP mask. Chest x-ray reported diffuse bilateral patchy infiltrates stable. Denies chest pain, palpitations. Xanax administered for anxiety. Continue to develop more agitation attempting deplorable off mask. stripe marker placed in room. Eventually patient required IV push Haldol. Patient now maintaining O2 sat of 94% on 100% BiPAP. Afebrile, WBC 14.8. Creatinine improving, 1.28. 06/26/2020 requiring 100% BiPAP to maintain O2 sats in the low 90s. T-max 102.6. WBC 14.9. Telemetry reporting Sinus Tachycardia with heart rates up into the 120s. Echo reported LV function 40-45% . Potassium 5.2, Renal function improving. Blood sugars controlled. Anxious, agitated, combative at times. Sitter remains at bedside. Receiving when necessary Haldol. Staff reports patient was asking for the bar mayandel, unclear if history of EtOH abuse, with questionable withdrawal. Psychiatry consult in place with recommendations pending. 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 Received Ativan 1 mg IV push. Agitation lessened. Staff reports carmen ent was choking on water. Spiking fevers, T-max 100.5, labs pending. Taking O2 sats of 90 on 60% BiPAP. 06/28/2020 rough night with increased agitation and confusion despite Prolixin and Zyprexa. Reevaluated by psychiatry this morning with medication changes noted and appreciated. Unable to wean from 100% BiPAP, maintaining O2 sats of mid 80s to low 90s. Speech therapy unable to conduct swallow evaluation as patient unable to tolerate being off of BiPAP. Poor oral intake, renal function worsening. Sitter remains at bedside. Afebrile. 06/29/2020 100% BiPAP, maintaining O2 sats in the low 90s. Had a better night with less agitation, received Prolixin. Less confused this morning. Asking for ice chip. Complains of chronic back pain. Discussed CODE STATUS and patient wishes to remain a full code. Denies any chest pain, palpitations. BUN 43, creatinine 1.18. Received PICC line with TPN initiated yesterday. Blood sugars controlled. 07/02/2020 remains on 80% BiPAP, maintaining O2 sats in the high 80s. Minimal reserve-Unable to tolerate being off BiPAP mask . Receiving TPN via PICC line. Reporting that he is hungry.Calm, maintained on Zyprexa, prn Prolixin as per p sychiatry. Did not require Prolixin over the weekend. Sensorium significantly improved. Afebrile. D-dimer, LDH decreased, CRP increased. 07/03/2020 continue on 80% BiPAP, calm, maintaining O2 sats in the mid 90s. Hungry, asking for food, receiving TPN. Also asking for a writing board to co mmunicate easier. 07/04/2020 significant improvement in sensorium .weaned off of BiPAP currently maintaining O2 sats in the high 80s to low 90s on both high flow nasal cannula/nonrebreather. Productive cough. Continues on TPN with bites of food intermittently. Blood sugars ranging from 130 to 225. Continue on Covid cocktail including Decadron. Denies chest pain, palpitations. 07/05/2020 Staff reports patient desatted down into the 70s this morning within minutes of taken off mask (patient had been on 60L high flow nasal cannula and nonrebreather )to have a few bites of oatmeal. Slow recovery and 80% BiPAP mask reapplied. Receiving TPN via PICC line as well. Continues on Covid cocktail. Blood sugars better controlled on low-dose Levemir insulin. T-max 100.5, WBC 8.6. 07/06/2020 Desatted to the low 60s on high flow nasal cannula with nonrebreather. BiPAP 100% maintaining O2 sats of 89%. Maintained on TPN . Continues on Covid cocktail. Inflammatory markers remain elevated. Afebrile, T-max 99. Blood sugars controlled. 07/09/2020 Airvo/NRB, maintaining O2 sats in the high 80s. Afebrile. Blood sugars 160s to 190s. Objective - Vital Signs Vital signs: Vital Signs Temp 97.4 F L 07/09/20 08:00 Pulse 83 07/09/20 14:00 Resp 22 07/09/20 14:52 BP 135/70 07/09/20 14:52 Pulse Ox 88 L 07/09/20 14:52 Intake & Output 07/08/20 07/09/20 07/09/20 18:59 06:59 18:59 Intake Total 2070 580 375 Output Total 1500 1800 Balance 571 580 -1425 Intake: Intake, IV Titration 2070 360 250 Amount Fat Emulsion 20% 250 ml 250 In Empty Bag 1 bag @ 21 mls/hr IV DAILY [facility] Rx#: [id number] Mvi, Adult No.4 with Vit 1041 K 10 ml Trace (Conc-1Ml/ Dose) 1 ml Sodium Acetate 30 meq Sodium Phosphate 9 mmol Calcium Gluconate 1 gm Magnesium Sulfate gm 1 gm In Amino Acid 5%- D15w 1,000 ml @ 85 mls/hr IV .BY DURATION [facility] Rx#: [id number] Sodium Acetate 30 meq 1030 Sodium Phosphate 9 mmol Calcium Gluconate 1 gm Magnesium Sulfate gm 1 gm In Amino Acid 5%-D15w 1, 000 ml @ 85 mls/hr IV .BY DURATION [facility] Rx#: [id number] Sodium Chloride 0.9% 1, 360 000 ml @ 20 mls/hr IV . Q24H [facility] Rx#:[id number] Oral 0 220 125 Output: Urine 1500 1800 Other: Voiding Method Indwelling Catheter Indwelling Catheter Indwelling Catheter - Exam GENERAL: Sitting up in bed, alert and oriented 3, respiratory effort increased CHEST EXAMINATION: Symmetrical expansion. Diminished, bibasilar crackles CARDIAC: Normal S1, S2 with no gallops. No murmurs ABDOMEN: Soft. Bowel sounds normal. No guarding. Positive bowel sounds Extremities: reveal no edema. No clubbing or cyanosis Neurologically: Cranial nerves II through XII grossly intact , no focal deficits, Moving all extremities. Skin: Warm and dry, no rashes. - Labs CBC & Chem 7: 07/05/20 09:02 07/09/20 08:45 Labs: Abnormal Lab Results - Last 24 Hours (Table) 07/08/20 07/09/20 07/09/20 Range/Units 18:08 00:02 06:18 Sodium (137-145) mmol/L BUN (9-20) mg/dL Glucose (74-99) mg/dL POC Glucose (mg/dL) 199 H 151 H 125 H (75-99) mg/dL Calcium (8.4-10.2) mg/dL 07/09/20 07/09/20 Range/Units 08:45 11:35 Sodium 134 L (137-145) mmol/L BUN 39 H (9-20) mg/dL Glucose 103 H (74-99) mg/dL POC Glucose (mg/dL) 164 H (75-99) mg/dL Calcium 8.3 L (8.4-10.2) mg/dL Assessment and Plan Assessment: Sepsis secondary to Acute Covid -19 pneumonia Acute hypoxic respiratory failure secondary to the above Acute delirium, acute metabolic encephalopathy secondary to the above, possibly acute hypoxic encephalopathy, medication induced, steroids, benzos, opiates. Possible steroid psychosis. Significantly improved. Acute renal failure secondary to the above, improving Hyperglycemia, steroid-induced, A1c pending Gastroesophageal reflux disease Chronic paroxysmal atrial fibrillation Chronic systolic CHF, EF 35-40% Coronary artery disease with history of SD,stent placement Former nicotine dependence Hypertension PICC line, TPN Plan: Continue on current medication regime ,monitoring and symptomatic treatme nt.Covid cocktail. TPN. Prognosis guarded given multiple complex medical issues. The impression and plan of care has been dictated as directed. : I performed a history and examination of this patient, discussed the same with the dictator. I agree with the dictator's note ,documented as a scribe. Any additional findings or plans will be noted.
[2020-07-09 17:08] LABS: Glucose,Whole Blood 195 mg/dL (75-99)
[2020-07-09] MEDS: SODIUM CHLORIDE 0.9% 1,000 ML IV SCH (19:59)
[2020-07-09] MEDS: [UNRECOGNIZED DRUG - OTHER] IV SCH ×7 (20:08)
[2020-07-09] MEDS: OLANZapine 7.5 MG TAB PO SCH (20:09)
[2020-07-09] MEDS: ATORVASTATIN 10 MG TAB PO SCH (20:10)
[2020-07-10 00:07] LABS: Glucose,Whole Blood 158 mg/dL (75-99)
[2020-07-10] MEDS: INSULIN ASPART (NovoLOG) 100 UNIT/ML VIAL SQ SCH ×4 (00:13→18:19)
[2020-07-10] MEDS: METOPROLOL TARTRATE 25 MG TAB PO SCH ×3 (05:50→21:56)
[2020-07-10 06:08] LABS: Glucose,Whole Blood 125 mg/dL (75-99)
[2020-07-10] MEDS: INSULIN DETEMIR (LEVEMIR) 100 UNIT/ML SYR SQ SCH (06:29)
[2020-07-10] MEDS: ALBUTEROL HFA INHALER INHALATION PRN (08:38)
[2020-07-10] MEDS: FAMOTIDINE 20 MG TAB PO SCH ×2 (08:40→21:55)
[2020-07-10] MEDS: ASCORBIC ACID 500 MG TAB PO SCH ×2 (08:40→21:55)
[2020-07-10] MEDS: ZINC SULFATE 220 MG CAP PO SCH (08:40)
[2020-07-10] MEDS: DEXAMETHASONE SOD PHOSPHATE 10 MG/ML 1 ML VIAL IV SCH (08:40)
[2020-07-10] MEDS: CHOLECALCIFEROL 25 MCG (1000 IU) TABLET PO SCH (08:40)
[2020-07-10] MEDS: allopurinoL 100 MG TAB PO SCH (08:40)
[2020-07-10] MEDS: ENOXAPARIN 60 MG/0.6 ML SYRINGE SQ SCH ×2 (08:42→21:56)
[2020-07-10] MEDS: FAT EMULSION 20% 250 ML in EMPTY BAG 1 BAG IV SCH (08:42)
[2020-07-10] MEDS: [UNRECOGNIZED DRUG - OTHER] IV SCH ×14 (08:55→21:56)
[2020-07-10] MEDS: SODIUM ACETATE IV SCH ×14 (08:55→21:56)
[2020-07-10] MEDS: CALCIUM GLUCONATE IV SCH ×14 (08:55→21:56)
[2020-07-10] MEDS: SODIUM PHOSPHATE IV SCH ×14 (08:55→21:56)
--- NOTE | 2020-07-10 09:56 | P.PN ---
Subjective Progress Note Date: 07/10/20 This is 70-year-old gentleman with past medical history of hypertension, and gastroesophageal reflux disease, CAD, [place], chronic back pain with history of laminectomy and multiple other medical issues presented to the ER with history of fevers ,worsening shortness of breath. Patient had seen his PCP last week on Thursday the and was recommended to go for his covid test. Patient apparently never went for his test. Yesterday completed a tele visit with his PCP, Dr. Encarnacion, referred to the ER. Patient tested positive for Covid infection while in the ER. On admission patient hypoxic with O2 sat of 80% on room air, required nonrebreather to maintain O2 sats in the 90s to 100%. Febrile on admission with temperature 99.9, normal WBC. D-dimer 2.41, sodium 132, BUN 52, creatinine 2.05, ferritin 1556.7 total bili elevated on admission now within normal limits, mildly elevated LFTs, LDH 2411currently 2018, CRP 158.4. Given patient's renal function and respiratory status unable to proceed with CTA of chest or VQ to rule out PE, currently on heparin drip. Chest x-ray reported partially consolidative opacity in the right lung base consistent with acute pneumonic process. Telemetry sinus rhythm with fusion complexes and PACs with left axis deviation. Denies chest pain, palpitations. 06/25/2020 during the night and again this morning patient removing his oxygen, desatting into the high 40s, turning blue, return to 15 L high flow in addition to nonrebreather, O2 sats initially in the high 80s. As the morning progressed, only maintaining O2 sats in the low 80s and transitioned to BiPAP mask. Chest x-ray reported diffuse bilateral patchy infiltrates stable. Denies chest pain, palpitations. Xanax administered for anxiety. Continue to develop more agitation attempting deplorable off mask. obiee obia solution architect placed in room. Eventually patient required IV push Haldol. Patient now maintaining O2 sat of 94% on 100% BiPAP. Afebrile, WBC 14.8. Creatinine improving, 1.28. 06/26/2020 requiring 100% BiPAP to maintain O2 sats in the low 90s. T-max 102.6. WBC 14.9. Telemetry reporting Sinus Tachycardia with heart rates up into the 120s. Echo reported LV function 40-45% . Potassium 5.2, Renal function improving. Blood sugars controlled. Anxious, agitated, combative at times. Sitter remains at bedside. Receiving when necessary Haldol. Staff reports patient was asking for the bar mayandel, unclear if history of EtOH abuse, with questionable withdrawal. Psychiatry consult in place with recommendations pending. 06/27/2020 felt hat steamer hours, significant agitation despite adjustment in med regimen. Received Ativan 1 mg IV push. Agitation lessened. Staff reports carmen ent was choking on water. Spiking fevers, T-max 100.5, labs pending. Taking O2 sats of 90 on 60% BiPAP. 06/28/2020 rough night with increased agitation and confusion despite Prolixin and Zyprexa. Reevaluated by psychiatry this morning with medication changes noted and appreciated. Unable to wean from 100% BiPAP, maintaining O2 sats of mid 80s to low 90s. Speech therapy unable to conduct swallow evaluation as patient unable to tolerate being off of BiPAP. Poor oral intake, renal function worsening. Sitter remains at bedside. Afebrile. 06/29/2020 100% BiPAP, maintaining O2 sats in the low 90s. Had a better night with less agitation, received Prolixin. Less confused this morning. Asking for ice chip. Complains of chronic back pain. Discussed CODE STATUS and patient wishes to remain a full code. Denies any chest pain, palpitations. BUN 43, creatinine 1.18. Received PICC line with TPN initiated yesterday. Blood sugars controlled. 07/02/2020 remains on 80% BiPAP, maintaining O2 sats in the high 80s. Minimal reserve-Unable to tolerate being off BiPAP mask . Receiving TPN via PICC line. Reporting that he is hungry.Calm, maintained on Zyprexa, prn Prolixin as per p sychiatry. Did not require Prolixin over the weekend. Sensorium significantly improved. Afebrile. D-dimer, LDH decreased, CRP increased. 07/03/2020 continue on 80% BiPAP, calm, maintaining O2 sats in the mid 90s. Hungry, asking for food, receiving TPN. Also asking for a writing board to co mmunicate easier. 07/04/2020 significant improvement in sensorium .weaned off of BiPAP currently maintaining O2 sats in the high 80s to low 90s on both high flow nasal cannula/nonrebreather. Productive cough. Continues on TPN with bites of food intermittently. Blood sugars ranging from 130 to 225. Continue on Covid cocktail including Decadron. Denies chest pain, palpitations. 07/05/2020 Staff reports patient desatted down into the 70s this morning within minutes of taken off mask (patient had been on 60L high flow nasal cannula and nonrebreather )to have a few bites of oatmeal. Slow recovery and 80% BiPAP mask reapplied. Receiving TPN via PICC line as well. Continues on Covid cocktail. Blood sugars better controlled on low-dose Levemir insulin. T-max 100.5, WBC 8.6. 07/06/2020 Desatted to the low 60s on high flow nasal cannula with nonrebreather. BiPAP 100% maintaining O2 sats of 89%. Maintained on TPN . Continues on Covid cocktail. Inflammatory markers remain elevated. Afebrile, T-max 99. Blood sugars controlled. 07/09/2020 Airvo/NRB, maintaining O2 sats in the high 80s. Afebrile. Blood sugars 160s to 190s. 07/10/2020 currently on high flow nasal cannula 60% and nonrebreather maintaining O2 sats 86-80%. Reports mild anxiety this morning. Afebrile. Labs pending. Objective - Vital Signs Vital signs: Vital Signs Temp 98.1 F 07/09/20 20:00 Pulse 65 07/10/20 04:00 Resp 24 07/10/20 04:00 BP 125/72 07/10/20 04:00 Pulse Ox 88 L 07/10/20 04:00 Intake & Output 07/09/20 07/10/20 07/10/20 18:59 06:59 18:59 Intake Total 855 440 Output Total 262 2380 Balance -1769 Intake: Intake, IV Titration 250 390 Amount Fat Emulsion 20% 250 ml 250 250 In Empty Bag 1 bag @ 21 mls/hr IV DAILY [facility] Rx#: [id number] Sodium Chloride 0.9% 1, 140 000 ml @ 20 mls/hr IV . Q24H [facility] Rx#:[id number] Oral 605 50 Output: Urine 2625 2380 Other: Voiding Method Indwelling Catheter Indwelling Catheter - Exam GENERAL: Sitting up in bed, alert and oriented 3, mild anxiety CHEST EXAMINATION: Symmetrical expansion. Diminished, bibasilar crackles CARDIAC: Normal S1, S2 with no gallops. No murmurs ABDOMEN: Soft. Bowel sounds normal. No guarding. Positive bowel sounds Extremities: no edema. No clubbing or cyanosis. No calf pain. Neurologically: Cranial nerves II through XII grossly intact , no focal deficits, Moving all extremities. Skin: Warm and dry, no rashes. - Labs CBC & Chem 7: 07/05/20 09:02 07/09/20 08:45 Labs: Abnormal Lab Results - Last 24 Hours (Table) 07/09/20 07/09/20 07/09/20 Range/Units 08:45 11:35 17:07 Sodium 134 L (137-145) mmol/L BUN 39 H (9-20) mg/dL Glucose 103 H (74-99) mg/dL POC Glucose (mg/dL) 164 H 195 H (75-99) mg/dL Calcium 8.3 L (8.4-10.2) mg/dL 07/10/20 07/10/20 Range/Units 00:04 06:04 Sodium (137-145) mmol/L BUN (9-20) mg/dL Glucose (74-99) mg/dL POC Glucose (mg/dL) 158 H 125 H (75-99) mg/dL Calcium (8.4-10.2) mg/dL Assessment and Plan Assessment: Sepsis secondary to Acute Covid -19 pneumonia Acute hypoxic respiratory failure secondary to the above Acute delirium, acute metabolic encephalopathy secondary to the above, possibly acute hypoxic encephalopathy, medication induced, steroids, benzos, opiates. Possible steroid psychosis. Significantly improved. Acute renal failure secondary to the above, improving Hyperglycemia, steroid-induced, A1c pending Gastroesophageal reflux disease Chronic paroxysmal atrial fibrillation Chronic systolic CHF, EF 35-40% Coronary artery disease with history of [place],stent placement Former nicotine dependence Hypertension PICC line, TPN Plan: Continue on current medication regime ,monitoring and symptomatic treatment.labs pending .Covid cocktail. TPN. Titration of FiO2 as per pulmonary. Prognosis guarded given multiple complex medical issues. The impression and plan of care has been dictated as directed. : I performed a history and examination of this patient, discussed the same with the dictator. I agree with the dictator's note ,documented as a scribe. Any additional findings or plans will be noted.
[2020-07-10 10:07] LABS: African American GFR (CKD) >90 (>60 ml/min/1.73 sqM); Anion Gap 5 mmol/L; Blood Urea Nitrogen 39 mg/dL (9-20); Calcium 8.4 mg/dL (8.4-10.2); Carbon Dioxide 24 mmol/L (22-30); Chloride 105 mmol/L (98-107); Glucose 115 mg/dL (74-99); Non-African American GFR(CKD) 87 (>60 ml/min/1.73 sqM); Phosphorus 3.6 mg/dL (2.5-4.5); Potassium 3.8 mmol/L (3.5-5.1); Sodium 134 mmol/L (137-145)
--- NOTE | 2020-07-10 10:34 | P.CONS ---
History of Present Illness - Reason for Consult Consult date: 07/10/20 Wound care - History of Present Illness This is a 70-year-old gentleman being seen by the wound care center on [address] for a nonhealing ulceration to the bridge of the nose related to pressure injury from a BiPAP machine. Patient states that they have been utilizing a dressing that has seems to be improving. Patient also states that they continue to use the BiPAP machine. Patient is tolerating dressings without any difficulties. Patient has an open ulceration to the bridge of the nose Limited to skin breakdown measuring approximately 1 x 1 x 0.1 cm with serosanguineous drainage. Wound edges are attached to the wound base granulation seen within the wound edge no tunneling or undermining noted. Patient has medical history significant for atrial fibrillation, coronary artery disease, GERD, hyperlipidemia, hyp ertension, lifelong nonsmoker. Denies diabetes Review Of Systems: Constitutional: No fever, no chills, no night sweats. No weight change. No weakness, fatigue or lethargy. No daytime sleepiness. Integumentary:reports wounds, no lesions. No rash or pruritus. No unusual bruising. No change in hair or nails. Physical exam: General Appearance: Alert, cooperative, no distress, appears stated age. Skin: See HPI all other Skin color, texture, tugor normal, no rashes or lesions. Neurologic: Alert oriented x3 Assessment/plan: 1. Nonhealing ulceration Limited to skin breakdown in other parts of body: Apply absorptive silver, saline moistened gauze, DuoDERM. Avoid repeated pressure to the site as needed. Thank you for the consultation any questions please contact the wound care center DNP note has been reviewed and discussed with Dr. Warren and the impression and plan of care has been directed as dictated. 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), gout, Last Myocardial Infarction Date:: 05-09-06 History of Any Multi-Drug Resistant Organisms: None Reported Past Surgical History: Back Surgery, Heart Catheterization With Stent, Hernia Repair, Orthopedic Surgery Additional Past Surgical History / Comment(s): LT INGUINAL HERNIA, LT EYE SX TO REPAIR THE BROKEN ORBIT HAS METAL IN PLACE, 2 cardiac stents, surgery for fx rt foot Past Anesthesia/Blood Transfusion Reactions: Previous Problems w/ Anesthesia Additional Past Anesthesia/Blood Transfusion Reaction / Comm: one time "was not very nice when coming out of anesthesia" Date of Last Stent Placement:: 05-09-06 Past Psychological History: No Psychological Hx Reported Smoking Status: Never smoker Past Alcohol Use History: None Reported Additional Past Alcohol Use History / Comment(s): smoked x 20 years, 1ppd quit 1998 Past Drug Use History: None Reported - Past Family History Father Family Medical History: Cancer Additional Family Medical History / Comment(s): COLON CANCER Medications and Allergies Home Medications Medication Instructions Recorded Confirmed Type Allopurinol [Zyloprim] 100 mg PO DAILY 09/09/17 06/21/20 History Metoprolol Tartrate [Lopressor] 25 mg PO BID #60 tab 09/15/17 06/21/20 Rx Rosuvastatin Calcium 5 mg PO HS 06/21/20 06/21/20 History lisinopriL [Zestril] 2.5 mg PO HS 06/21/20 06/21/20 History Gabapentin [Neurontin] 300 mg PO TID PRN 06/22/20 06/22/20 History predniSONE See Taper PO DAILY 06/22/20 06/22/20 History Allergies Allergy/AdvReac Type Severity Reaction Status Date / Time Penicillins Allergy Unknown Verified 06/21/20 21:33 Physical Exam Vitals: Vital Signs Temp Pulse Resp BP Pulse Ox Pulse Ox Pulse Ox 07/10/20 04:00 65 24 125/72 88 L 07/10/20 03:20 88 L 07/10/20 02:00 73 22 07/10/20 00:00 73 22 127/67 86 L 07/09/20 20:00 98.1 F 69 22 121/77 88 L 07/09/20 14:52 22 135/70 88 L 07/09/20 14:00 83 20 07/09/20 12:00 83 20 131/71 87 L 07/09/20 10:47 85 L 75 L Intake and Output 07/09/20 07/10/20 07/10/20 22:59 06:59 14:59 Intake Total 490 440 Output Total 1005 2200 Balance -515 1762 Intake: Intake, IV Titration 250 390 Amount Fat Emulsion 20% 250 ml 250 250 In Empty Bag 1 bag @ 21 mls/hr IV DAILY [facility] Rx#: [id number] Sodium Chloride 0.9% 1, 140 000 ml @ 20 mls/hr IV . Q24H [facility] Rx#:[id number] Oral 240 50 Output: Urine 1005 2200 Other: Voiding Method Indwelling Catheter Indwelling Catheter Results CBC & Chem 7: 07/05/20 09:02 07/10/20 08:50 Labs: Abnormal Lab Results - Last 24 Hours (Table) 07/09/20 07/09/20 07/10/20 Range/Units 11:35 17:07 00:04 Sodium (137-145) mmol/L BUN (9-20) mg/dL Glucose (74-99) mg/dL POC Glucose (mg/dL) 164 H 195 H 158 H (75-99) mg/dL 07/10/20 07/10/20 Range/Units 06:04 08:50 Sodium 134 L (137-145) mmol/L BUN 39 H (9-20) mg/dL Glucose 115 H (74-99) mg/dL POC Glucose (mg/dL) 125 H (75-99) mg/dL Assessment and Plan (1) Non-pressure chronic ulcer of skin of other sites limited to breakdown of skin Current Visit: Yes Status: Acute Code(s): L98.491 - NON-PRS CHRONIC ULCER SKIN/ SITES LIMITED TO BRKDWN SKIN SNOMED Code(s): 08006028
[2020-07-10 12:20] LABS: Glucose,Whole Blood 156 mg/dL (75-99)
--- NOTE | 2020-07-10 16:58 | P.PN ---
Subjective Progress Note Date: 07/10/20 Principal diagnosis: Acute hypoxic respiratory failure secondary to acute covid 19 pneumonitis. This is a 70-year-old gentleman that was seen in the emergency room on June 21. He was sent into the emergency room after being seen by his primary care doctor because of increasing shortness of breath, and concerns that the patient might have COVID 19. In addition to shortness of breath, the patient states he's been having lots of chest congestion, and is been coughing. When he coughs, it is painful in his chest. He has been sick for at least 2 weeks. In addition, he has muscle aches and joint aches, weakness and fatigue, and fever and chills. Currently, he is on a nonrebreather mask. Saturations are 92%. His primary care physician Dr. Vijay Encarnacion. He was not receiving any IV fluids. His primary medical problems include atrial fibrillation, coronary artery disease, hyperlipidemia, hypertension, gastroesophageal reflux disease, and prior myocardial infarction. The patient is a lifelong nontobacco user. White count is 4.9, hemoglobin 13.5, hematocrit 39.5, platelet count 92,000. PTT 61.3. D- dimer 2.41. Sodium 132, potassium 4.8, chloride 105, CO2 18, anion gap 9, BUN and creatinine 52 and 2.05. Calcium 7.6, AST 156, pO2 102, LDH 2018. C- reactive protein 158. I was not able to look at the chest x-ray. There is apparently a partially occlusive opacity at the right lung base consistent with acute pneumonic process. CT angiogram was not performed. Patient was reevaluated today on 06/23/2020, patient is feeling better today compared to how he felt yesterday. Patient is on high flow cannula running at 15 L/m, his O2 saturation is in the mid to high 80s he is on 100% FiO2 basically. His chest x-ray does not seem to be impressive, he does have consolidative opacity in the right lung base consistent with acute pneumonic process. Left lung is relatively clear. No significant pulmonary congestion. D-dimer is 2.56. Renal profile is not good enough for performing a CT angiogram of the chest, however I will recommend bilateral venous Doppler on this patient just to make sure we were not dealing with thromboembolic process. Again the patient tells me that his feeling better today compared to how he felt yesterday. Clinically improving. Patient was reevaluated today on 06/24/2020, patient remains on high flow oxygen. He is on 15 L high flow cannula, and his O2 saturations 92% at best. Patient continues to have shortness of breath, intermittent episodes of cough. He has no fever, his vital signs are relatively stable. During my evaluation, patient was constantly coughing. CBC is relatively normal electrolytes are normal BUN is 52 creatinine 1.45. LDH is elevated at 1586. Venous Doppler yesterday was negative. Chest x-ray on admission showed consolidation at the right lung base. I also suspect some consolidation at the left base/retrocardiac area. Progress note dated 06/25/2020. Currently, the patient was on BiPAP and on percent. Earlier today, he desaturated, and the nurses had a hard time getting his saturations back up. We did do a blood gas on the patient. PO2 was 63, pCO2 was 33, pH was 7.44. That was on 100% on the BiPAP. White count 14.8, hemoglobin hematocrit and platelet count all normal. Sodium 136, potassium 4.9, chlorides 107, CO2 20, anion gap 9, BUN 45, creatinine 1.28. Chest x-ray today showed diffuse bilateral patchy infiltrates which are stable. Yesterday, he was on high flow nasal O2 at 15 L/m. Progress note dated 06/26/2020. 70-year-old male, currently on BiPAP, at 16/6 and 80%. His saturations were good, so the FiO2 was dropped from 80% down to 60%. The patient appears to be doing reasonably well, although he did become somewhat tachypnea today when he was being evaluated here. Saturations are 90% on the 60% FiO2. Temperature is 98.1, and blood pressure 173/104. White count 14.9, and hemoglobin, hematocrit, and platelet count are all normal. Sodium 135, potassium 5.2, chlorides 106, CO2 18, anion gap 11, BUN 38, creatinine 1.23. Chest x-ray from June 25, shows bilateral patchy infiltrates. The patient is seen today 06/27/2020 in follow-up on the regular medical floor. He is currently resting fairly comfortably in bed. He is maintaining O2 saturation in the 90s on BiPAP 16/6 and 60% FiO2. 0.9 normal saline at 50 MLS per hour. Chest x-ray continues to show patchy bilateral infiltrates compatible with superimposed interstitial pneumonia. White count 8.3. Hemoglobin 13.4. Sodium 139. Potassium 5.6. Creatinine 1.13. He is continued on dexamethasone, Xarelto, vitamin supplements. The patient is seen today 06/28/2020 follow-up on the selective care unit. He is currently sitting up in bed. Remains on BiPAP 16/6 and 100% FiO2 maintaining O2 saturation the high 80s low 90s. He is 0.9 normal saline at 50 MLS per hour. He is now on Lovenox, dexamethasone, vitamin supplements. PICC line placed today. The patient is seen today 06/29/2020 follow-up on the selective care unit. He remains on BiPAP 16/6 and 100% FiO2 to maintain O2 saturations in the low 90s. He is afebrile. Currently being nourished with TPN via PICC line. 0.9 normal saline at 50 ML's per hour. Blood cultures reveal no growth. Sodium 140. Potassium 5.1. Creatinine 1.18. Glucose 125. He remains on dexamethasone, Lovenox, vitamin supplements. The patient is seen today 06/30/2020 follow-up on the selective care unit. He is currently resting fairly comfortably in bed. Remains on BiPAP 16/6 at 100% FiO2. He is being nourished with TPN and lipids via PICC line. 0.9 normal saline at 50 MLS per hour. He states he is still quite fatigued but improved today compared to yesterday. Cultures reveal no growth. D-dimer 10.2. Sodium 140. Potassium 5.2. Creatinine 0.99. LDH 1591. C-reactive protein 53.8. He remains on therapeutic Lovenox, dexamethasone, vitamin supplements. The patient is seen today 07/01/2020 in follow-up on the selective care unit. He is resting comfortably in bed. Continued on BiPAP 16/6 and 100% FiO2 to maintain O2 saturations in the high 80s low 90s. Chest x-ray continues to show scattered bilateral lung infiltrates which are stable compared to previous. Sodium 142. Potassium 4.8. Creatinine 0.95. Yesterday's d-dimer 10.23. Remains on therapeutic Lovenox at 100 mg subcu every 12 hours, Decadron, vitamin supplements. On today's evaluation of 07/02/2020 on seeing the patient for a follow-up. The patient remains on a BiPAP at a pressure of 16/6 cm of water and FiO2 of 80%. The patient is also receiving TPN for nutritional support. Therapeutic dose of Lovenox. His d-dimer was quite elevated at 10.2, normal renal function, normal electrolytes, CRP was elevated at 53 with an LDH level of 1591. Most recent chest x-ray from 07/01/2030 showing peripherally located infiltrates bilaterally. The patient is able to generate tidal volume of around 370 on the BiPAP machine. His extremities around 28. He is very weak. He cannot tolerate being off the BiPAP as the patient immediately desaturates even was taken pills or sips of water. He remains on TPN for nutritional support. His symptoms of his blood work today, he has white cell count of 9.8 with a hemoglobin of 12, sodium is 139 and a creatinine of 0.9. His current pulse ox on the percent on above-mentioned BiPAP setting with an FiO2 of 80%.Inflammatory markers are still elevated. D-dimer is at 5 and the patient also has an LDH level of 1009 with a CRP of 143.The chest x-ray from yesterday was showing worsening in the bilateral lower lobe pulmonary infiltrates especially in the right lower lobe. 07/03/2020 the patient remains on BiPAP at a pressure of 16/6 with an FiO2 of 80% and this is essentially the same setting as yesterday. His current vitals show a pulse ox of 94% on above-mentioned ventilator setting. He is afebrile. Breathing is nonlabored. He is still on TPN for nutritional support. His chest x-ray from 07/01/2020 showed peripheral pulmonary infiltrates consistent with Coumadin related pneumonia. No repeat x-rays since then. The patient remains considerably weak. His blood work from today showing no major electrolyte abnormalities. His LDH level was dropping yesterday down to 1009. He is still on Decadron 6 mg IV every 24 hours. He is also on Lovenox 45 mg subcu every 12 hours. On the BiPAP machine, degenerative tidal volumes around 400. 06/03/2020 this morning the patient is off the BiPAP and the patient is currently on a high flow oxygen 60 L with an FiO2 of 86%. The patient is also using 100% nonrebreather facemask. His current pulse ox is around 91%. He has developed skin breaks and ulceration from his BiPAP mask and is currently off the BiPAP. He is resting comfortably in bed. He is still on Lovenox 45 mg subcu every 12 hours. There is on steroids and the patient is receiving Decadron 6 mg IV every 24 hours. The patient is also on TPN for nutritional support. LDH level is at 893 which is lower than the CRP level is down to 50. He is quite weak and debilitated. His white cell count of 6.8 with a hemoglobin of 12.3. No fever. No other new complaints otherwise for now. Most recent d- dimer was at 5 from 07/02/2020. 07/05/2020, the patient remains on BiPAP. The patient was on high flow oxygen yesterday and desaturated and he decompensated and he was switched to a BiPAP at a pressure of 16/6 with an FiO2 of 80%. This occurred when the patient on was trying to have some breakfast earlier this morning. He was on high flow oxygen. He dropped his oxygen saturations significantly and he was very slow in recovery. At that point, he was switched to a BiPAP. His current pulse ox is 90%. He is quite lethargic and somnolent. He is unable to eat and he has TPN for nutritional support. He continues to be on Decadron 6 mg IV every 24 hours. He is also on Lovenox 45 mg subcutaneously every 12 hours. On his blood work, he had a d-dimer of 6.49 which is slightly higher than the white cell count is at 8.6 with a hemoglobin of 12.8. TPN is current to being administered for nutritional support. No other significant events , otherwise his night was u neventful.. The PICC line is in the left upper extremity. The patient also has a Kwan catheter in place. Each in relating a tidal volume of 550 and his respiratory rate is currently in the mid 30s. He seems to be quite comfortable. He is however lethargic. 07/06/2020, the patient is on a BiPAP at a pressure of 16/6 with an FiO2 of 100%. Pulse ox is currently at around 88%. He was having some oxygen desaturations and the patient was brought up to 100% on her BiPAP FiO2. The patient's subsequent reading in a pulse ox in the order of 91%. Remains on TPN for nutritional support. Remains on Decadron 6 mg IV every 24 hours. Remains on Lovenox 45 mg subcu every 12 hours. Blood work shows a d-dimer of 5.64. No electrolyte abnormalities. Condition is essentially unchanged and probably the same as yesterday. Still on Levemir insulin 10 units along with a sliding scale coverage. Blood sugars are adequate for now. He does have a PICC line in left upper extremity. He has a Kwan catheter in place. At around 10:00 this morning, the patient was trialed on the percent nonrebreather with a high flow oxygen at 60 L with an FiO2 of 90%. He desaturated to the low 60s and he was pl aced accordingly back on BiPAP. 07/07/2020 the patient is a same BiPAP setting which is 60/6 with an FiO2 of 95%. Earlier this morning she was trialed on high flow oxygen with 60 L and FiO2 of 90% and he decompensated and he became profoundly hypoxic and he had to be placed back on the BiPAP. His current pulse ox in the low 90s. He remains on IV Decadron 6 and the rescue 24 hours. He remains on Lovenox 45 mg subcu every 12 hours. Chest x-ray from today is showing stable bilateral interstitial pulmonary infiltrates with some worsening consolidation of the left lower lobe. Meanwhile, the patient is still receiving TPN for nutritional support. He is unable to take oral intake because of his extreme BiPAP dependence. D-dimer is at 4.06 and the patient is on Lovenox 45 mg subcu every 12 hours. He has also LDH level of 962, CRP level is at 8.3, electrolytes are all within normal duran its. Unfortunately, he is still doing poorly and is not showing any signs of recovery. He remains on Levemir insulin 10 units daily along with a sliding- scale coverage. He has a Kwan catheter in place. Respiratory rate is in the mid 30s. He is quite lethargic. 2020, the patient continues to be on a BiPAP at a pressure of 16/6 with an FiO2 of 95%. Awake and alert. Slightly tachypneic. Pulse ox is 89% on the above-mentioned BiPAP setting. Minute ventilation as 40 L as we were seeing the patient and his minute ventilation with a. Otherwise his aspirate has been in the high 20s low 30 range. Whenever he sleeps, his respiratory rate goes down. He wants to stay on the BiPAP and he doesn't want to transition to the high flow oxygen today. Repeat chest x-ray was done and the findings are essentially stable with diffuse bilateral pulmonary infiltrates. No evidence of any pne umothorax. No interval progression or worsening his chest x-ray findings. Meanwhile, his blood work shows no major abnormalities. Blood sugars are not elevated. The patient remains on TPN for nutrition support and the patient remains on Decadron IV every 24 hours on Lovenox 45 mg subcu every 12 hours. D- dimer level is at 4.06. Patient was reevaluated today on 07/09/2020, remains on high flow oxygen using airvo and non-rebreather mask. Patient is on 94% FiO2 and 60 L flow per minute. Patient is about the same, not getting any better not getting any worse. He is noted to be slightly tachypneic. Has BiPAP at bedside, but not using it at present. Basic metabolic profile today is normal., Last LDH was trending down to 962 and C-reactive protein 8.3 Patient was reevaluated today on 07/10/2020, remains on high flow oxygen using Airvo and nonrebreather mask. O2 saturation remains marginal in the low 90s and high 80s patient denies being short of breath. He has intermittent cough. His d-dimer is 5.4 to today. Not significantly changed over the last 1 week. Basic metabolic profile is normal renal profile is normal. His last C-reactive protein was 8.3 and his LDH was 962 from 2 days ago. Chest x-ray from 07/08 continues to show persistent bilateral multifocal and comfortable in particular opacities consistent with COVID-19 infection. Objective - Vital Signs Vital signs: Vital Signs Temp 98.1 F 07/09/20 20:00 Pulse 62 07/10/20 16:00 Resp 24 07/10/20 16:00 BP 153/74 07/10/20 16:00 Pulse Ox 88 L 07/10/20 16:00 Intake & Output 07/09/20 07/10/20 07/10/20 18:59 06:59 18:59 Intake Total 855 440 240 Output Total 2625 2380 300 Balance -1770 -1940 -60 Weight 94 kg Intake: Intake, IV Titration 250 390 Amount Fat Emulsion 20% 250 ml 250 250 In Empty Bag 1 bag @ 21 mls/hr IV DAILY ROBERT Rx#: [id number] Sodium Chloride 0.9% 1, 140 000 ml @ 20 mls/hr IV . Q24H ROBERT Rx#:[id number] Oral 605 50 240 Output: Urine 2625 2380 300 Other: Voiding Method Indwelling Catheter Indwelling Catheter Indwelling Catheter - Exam Physical Exam: Revealed a 70-year-old white male on high flow oxygen, not in distress. Head: Atraumatic, normocephalic. HEENT:[Neck is supple.] [No neck masses.] [No thyromegaly.] [No JVD.] Chest: [Bibasilar crackles noted, right more so than left, no rhonchi and no wheezes. Cardiac Exam: [Normal S1 and S2, no S3 gallop, no murmur.] Abdomen: [Soft, nontender, no megaly, no rebound, no guarding, normal bowel sounds.] Extremities: [No clubbing, no edema, no cyanosis.] Neurological Exam: [No focal neurologic deficit.] Alert oriented 3. Psychiatric: Normal mood affect and normal mental status examination - Labs CBC & Chem 7: 07/05/20 09:02 07/10/20 08:50 Labs: Abnormal Lab Results - Last 24 Hours (Table) 07/09/20 07/10/20 07/10/20 Range/Units 17:07 00:04 06:04 D-Dimer (<0.60) mg/L FEU Sodium (137-145) mmol/L BUN (9-20) mg/dL Glucose (74-99) mg/dL POC Glucose (mg/dL) 195 H 158 H 125 H (75-99) mg/dL 07/10/20 07/10/20 07/10/20 Range/Units 08:50 12:18 14:45 D-Dimer 5.42 H (<0.60) mg/L FEU Sodium 134 L (137-145) mmol/L BUN 39 H (9-20) mg/dL Glucose 115 H (74-99) mg/dL POC Glucose (mg/dL) 156 H (75-99) mg/dL Assessment and Plan Assessment: Impression: Acute hypoxic respiratory failure secondary to Covid 19 pneumonia. Patient was outside the window for REM, received toci, remains on Decadron. And he is requiring high FiO2 with O2 saturation being marginal. Chronic atrial fibrillation. Previous [place]. And history of coronary artery disease. History of gout. Coronary artery disease and previous stent placement. GERD without esophagitis. Benign essential hypertension. Acute kidney injury, improved. Recommendation: Out of the window for REM. Continue the Covid 19 cocktail. Continue Lovenox and Decadron. Continue high flow oxygen and titrate accordingly. We will continue to follow. Time with Patient: Less than 30
[2020-07-10 17:31] LABS: Glucose,Whole Blood 205 mg/dL (75-99)
[2020-07-10] MEDS: SODIUM CHLORIDE 0.9% 1,000 ML IV SCH (18:20)
[2020-07-10 20:04] LABS: Glucose,Whole Blood 173 mg/dL (75-99)
[2020-07-10] MEDS: OLANZapine 7.5 MG TAB PO SCH (21:55)
[2020-07-10] MEDS: ATORVASTATIN 10 MG TAB PO SCH (21:56)
[2020-07-11 00:09] LABS: Glucose,Whole Blood 142 mg/dL (75-99)
[2020-07-11] MEDS: INSULIN ASPART (NovoLOG) 100 UNIT/ML VIAL SQ SCH ×4 (00:38→18:16)
[2020-07-11 06:08] LABS: Glucose,Whole Blood 110 mg/dL (75-99)
[2020-07-11] MEDS: INSULIN DETEMIR (LEVEMIR) 100 UNIT/ML SYR SQ SCH (06:55)
[2020-07-11] MEDS: ALBUTEROL HFA INHALER INHALATION PRN ×3 (08:00→19:24)
[2020-07-11] MEDS: allopurinoL 100 MG TAB PO SCH (08:38)
[2020-07-11] MEDS: ASCORBIC ACID 500 MG TAB PO SCH ×2 (08:38→20:57)
[2020-07-11] MEDS: FAMOTIDINE 20 MG TAB PO SCH ×2 (08:38→20:57)
[2020-07-11] MEDS: CHOLECALCIFEROL 25 MCG (1000 IU) TABLET PO SCH (08:38)
[2020-07-11] MEDS: ZINC SULFATE 220 MG CAP PO SCH (08:38)
[2020-07-11] MEDS: DEXAMETHASONE SOD PHOSPHATE 10 MG/ML 1 ML VIAL IV SCH (08:38)
[2020-07-11] MEDS: METOPROLOL TARTRATE 25 MG TAB PO SCH ×2 (08:38→20:57)
[2020-07-11] MEDS: ENOXAPARIN 60 MG/0.6 ML SYRINGE SQ SCH ×2 (08:38→20:57)
[2020-07-11] MEDS: FAT EMULSION 20% 250 ML in EMPTY BAG 1 BAG IV SCH (08:38)
[2020-07-11] MEDS: [UNRECOGNIZED DRUG - OTHER] IV SCH ×14 (08:45→21:08)
[2020-07-11] MEDS: SODIUM ACETATE IV SCH ×21 (08:45→21:08)
[2020-07-11] MEDS: CALCIUM GLUCONATE IV SCH ×21 (08:45→21:08)
[2020-07-11] MEDS: SODIUM PHOSPHATE IV SCH ×21 (08:45→21:08)
[2020-07-11 10:10] LABS: Basophils % (A) 0 %; Eosinophils # (A) 0.5 k/uL (0-0.7); Eosinophils % (A) 6 %; HCT 39.4 % (39.0-53.0); HGB 13.4 gm/dL (13.0-17.5); Lymphocytes # (A) 0.7 k/uL (1.0-4.8); Lymphocytes % (A) 8 %; MCH 30.4 pg (25.0-35.0); MCV 89.4 fL (80.0-100.0); Mean Platelet Volume 8.4; Monocytes # (A) 0.5 k/uL (0-1.0); Monocytes % (A) 6 %; Neutrophils # (A) 6.3 k/uL (1.3-7.7); Neutrophils % (A) 79 %; Platelet Count 127 k/uL (150-450); RDW 13.6 % (11.5-15.5)
[2020-07-11 10:14] LABS: African American GFR (CKD) >90 (>60 ml/min/1.73 sqM); Anion Gap 6 mmol/L; Blood Urea Nitrogen 41 mg/dL (9-20); Calcium 8.4 mg/dL (8.4-10.2); Carbon Dioxide 22 mmol/L (22-30); Chloride 106 mmol/L (98-107); Glucose 99 mg/dL (74-99); Magnesium 1.9 mg/dL (1.6-2.3); Non-African American GFR(CKD) >90 (>60 ml/min/1.73 sqM); Phosphorus 3.6 mg/dL (2.5-4.5); Sodium 134 mmol/L (137-145)
[2020-07-11 11:54] LABS: Glucose,Whole Blood 141 mg/dL (75-99)
[2020-07-11] MEDS ORDERED: Magnesium Replacement Protocol 1 EACH MISC MISCELLANE PRN (15:48)
[2020-07-11] MEDS ORDERED: Potassium Replacement Protocol 1 EACH MISC MISCELLANE PRN (15:48)
--- NOTE | 2020-07-11 16:56 | P.PN ---
Subjective Progress Note Date: 07/11/20 Principal diagnosis: Acute hypoxic respiratory failure secondary to acute covid 19 pneumonitis. This is a 70-year-old gentleman that was seen in the emergency room on June 21. He was sent into the emergency room after being seen by his primary care doctor because of increasing shortness of breath, and concerns that the patient might have COVID 19. In addition to shortness of breath, the patient states he's been having lots of chest congestion, and is been coughing. When he coughs, it is painful in his chest. He has been sick for at least 2 weeks. In addition, he has muscle aches and joint aches, weakness and fatigue, and fever and chills. Currently, he is on a nonrebreather mask. Saturations are 92%. His primary care physician Dr. Vijay Encarnacion. He was not receiving any IV fluids. His primary medical problems include atrial fibrillation, coronary artery disease, hyperlipidemia, hypertension, gastroesophageal reflux disease, and prior myocardial infarction. The patient is a lifelong nontobacco user. White count is 4.9, hemoglobin 13.5, hematocrit 39.5, platelet count 92,000. PTT 61.3. D- dimer 2.41. Sodium 132, potassium 4.8, chloride 105, CO2 18, anion gap 9, BUN and creatinine 52 and 2.05. Calcium 7.6, AST 156, pO2 102, LDH 2018. C- reactive protein 158. I was not able to look at the chest x-ray. There is apparently a partially occlusive opacity at the right lung base consistent with acute pneumonic process. CT angiogram was not performed. Patient was reevaluated today on 06/23/2020, patient is feeling better today compared to how he felt yesterday. Patient is on high flow cannula running at 15 L/m, his O2 saturation is in the mid to high 80s he is on 100% FiO2 basically. His chest x-ray does not seem to be impressive, he does have consolidative opacity in the right lung base consistent with acute pneumonic process. Left lung is relatively clear. No significant pulmonary congestion. D-dimer is 2.56. Renal profile is not good enough for performing a CT angiogram of the chest, however I will recommend bilateral venous Doppler on this patient just to make sure we were not dealing with thromboembolic process. Again the patient tells me that his feeling better today compared to how he felt yesterday. Clinically improving. Patient was reevaluated today on 06/24/2020, patient remains on high flow oxygen. He is on 15 L high flow cannula, and his O2 saturations 92% at best. Patient continues to have shortness of breath, intermittent episodes of cough. He has no fever, his vital signs are relatively stable. During my evaluation, patient was constantly coughing. CBC is relatively normal electrolytes are normal BUN is 52 creatinine 1.45. LDH is elevated at 1586. Venous Doppler yesterday was negative. Chest x-ray on admission showed consolidation at the right lung base. I also suspect some consolidation at the left base/retrocardiac area. Progress note dated 06/25/2020. Currently, the patient was on BiPAP and on percent. Earlier today, he desaturated, and the nurses had a hard time getting his saturations back up. We did do a blood gas on the patient. PO2 was 63, pCO2 was 33, pH was 7.44. That was on 100% on the BiPAP. White count 14.8, hemoglobin hematocrit and platelet count all normal. Sodium 136, potassium 4.9, chlorides 107, CO2 20, anion gap 9, BUN 45, creatinine 1.28. Chest x-ray today showed diffuse bilateral patchy infiltrates which are stable. Yesterday, he was on high flow nasal O2 at 15 L/m. Progress note dated 06/26/2020. 70-year-old male, currently on BiPAP, at 16/6 and 80%. His saturations were good, so the FiO2 was dropped from 80% down to 60%. The patient appears to be doing reasonably well, although he did become somewhat tachypnea today when he was being evaluated here. Saturations are 90% on the 60% FiO2. Temperature is 98.1, and blood pressure 173/104. White count 14.9, and hemoglobin, hematocrit, and platelet count are all normal. Sodium 135, potassium 5.2, chlorides 106, CO2 18, anion gap 11, BUN 38, creatinine 1.23. Chest x-ray from June 25, shows bilateral patchy infiltrates. The patient is seen today 06/27/2020 in follow-up on the regular medical floor. He is currently resting fairly comfortably in bed. He is maintaining O2 saturation in the 90s on BiPAP 16/6 and 60% FiO2. 0.9 normal saline at 50 MLS per hour. Chest x-ray continues to show patchy bilateral infiltrates compatible with superimposed interstitial pneumonia. White count 8.3. Hemoglobin 13.4. Sodium 139. Potassium 5.6. Creatinine 1.13. He is continued on dexamethasone, Xarelto, vitamin supplements. The patient is seen today 06/28/2020 follow-up on the selective care unit. He is currently sitting up in bed. Remains on BiPAP 16/6 and 100% FiO2 maintaining O2 saturation the high 80s low 90s. He is 0.9 normal saline at 50 MLS per hour. He is now on Lovenox, dexamethasone, vitamin supplements. PICC line placed today. The patient is seen today 06/29/2020 follow-up on the selective care unit. He remains on BiPAP 16/6 and 100% FiO2 to maintain O2 saturations in the low 90s. He is afebrile. Currently being nourished with TPN via PICC line. 0.9 normal saline at 50 ML's per hour. Blood cultures reveal no growth. Sodium 140. Potassium 5.1. Creatinine 1.18. Glucose 125. He remains on dexamethasone, Lovenox, vitamin supplements. The patient is seen today 06/30/2020 follow-up on the selective care unit. He is currently resting fairly comfortably in bed. Remains on BiPAP 16/6 at 100% FiO2. He is being nourished with TPN and lipids via PICC line. 0.9 normal saline at 50 MLS per hour. He states he is still quite fatigued but improved today compared to yesterday. Cultures reveal no growth. D-dimer 10.2. Sodium 140. Potassium 5.2. Creatinine 0.99. LDH 1591. C-reactive protein 53.8. He remains on therapeutic Lovenox, dexamethasone, vitamin supplements. The patient is seen today 07/01/2020 in follow-up on the selective care unit. He is resting comfortably in bed. Continued on BiPAP 16/6 and 100% FiO2 to maintain O2 saturations in the high 80s low 90s. Chest x-ray continues to show scattered bilateral lung infiltrates which are stable compared to previous. Sodium 142. Potassium 4.8. Creatinine 0.95. Yesterday's d-dimer 10.23. Remains on therapeutic Lovenox at 100 mg subcu every 12 hours, Decadron, vitamin supplements. On today's evaluation of 07/02/2020 on seeing the patient for a follow-up. The patient remains on a BiPAP at a pressure of 16/6 cm of water and FiO2 of 80%. The patient is also receiving TPN for nutritional support. Therapeutic dose of Lovenox. His d-dimer was quite elevated at 10.2, normal renal function, normal electrolytes, CRP was elevated at 53 with an LDH level of 1591. Most recent chest x-ray from 07/01/2030 showing peripherally located infiltrates bilaterally. The patient is able to generate tidal volume of around 370 on the BiPAP machine. His extremities around 28. He is very weak. He cannot tolerate being off the BiPAP as the patient immediately desaturates even was taken pills or sips of water. He remains on TPN for nutritional support. His symptoms of his blood work today, he has white cell count of 9.8 with a hemoglobin of 12, sodium is 139 and a creatinine of 0.9. His current pulse ox on the percent on above-mentioned BiPAP setting with an FiO2 of 80%.Inflammatory markers are still elevated. D-dimer is at 5 and the patient also has an LDH level of 1009 with a CRP of 143.The chest x-ray from yesterday was showing worsening in the bilateral lower lobe pulmonary infiltrates especially in the right lower lobe. 07/03/2020 the patient remains on BiPAP at a pressure of 16/6 with an FiO2 of 80% and this is essentially the same setting as yesterday. His current vitals show a pulse ox of 94% on above-mentioned ventilator setting. He is afebrile. Breathing is nonlabored. He is still on TPN for nutritional support. His chest x-ray from 07/01/2020 showed peripheral pulmonary infiltrates consistent with Coumadin related pneumonia. No repeat x-rays since then. The patient remains considerably weak. His blood work from today showing no major electrolyte abnormalities. His LDH level was dropping yesterday down to 1009. He is still on Decadron 6 mg IV every 24 hours. He is also on Lovenox 45 mg subcu every 12 hours. On the BiPAP machine, degenerative tidal volumes around 400. 06/03/2020 this morning the patient is off the BiPAP and the patient is currently on a high flow oxygen 60 L with an FiO2 of 86%. The patient is also using 100% nonrebreather facemask. His current pulse ox is around 91%. He has developed skin breaks and ulceration from his BiPAP mask and is currently off the BiPAP. He is resting comfortably in bed. He is still on Lovenox 45 mg subcu every 12 hours. There is on steroids and the patient is receiving Decadron 6 mg IV every 24 hours. The patient is also on TPN for nutritional support. LDH level is at 893 which is lower than the CRP level is down to 50. He is quite weak and debilitated. His white cell count of 6.8 with a hemoglobin of 12.3. No fever. No other new complaints otherwise for now. Most recent d- dimer was at 5 from 07/02/2020. 07/05/2020, the patient remains on BiPAP. The patient was on high flow oxygen yesterday and desaturated and he decompensated and he was switched to a BiPAP at a pressure of 16/6 with an FiO2 of 80%. This occurred when the patient on was trying to have some breakfast earlier this morning. He was on high flow oxygen. He dropped his oxygen saturations significantly and he was very slow in recovery. At that point, he was switched to a BiPAP. His current pulse ox is 90%. He is quite lethargic and somnolent. He is unable to eat and he has TPN for nutritional support. He continues to be on Decadron 6 mg IV every 24 hours. He is also on Lovenox 45 mg subcutaneously every 12 hours. On his blood work, he had a d-dimer of 6.49 which is slightly higher than the white cell count is at 8.6 with a hemoglobin of 12.8. TPN is current to being administered for nutritional support. No other significant events , otherwise his night was u neventful.. The PICC line is in the left upper extremity. The patient also has a Kwan catheter in place. Each in relating a tidal volume of 550 and his respiratory rate is currently in the mid 30s. He seems to be quite comfortable. He is however lethargic. 07/06/2020, the patient is on a BiPAP at a pressure of 16/6 with an FiO2 of 100%. Pulse ox is currently at around 88%. He was having some oxygen desaturations and the patient was brought up to 100% on her BiPAP FiO2. The patient's subsequent reading in a pulse ox in the order of 91%. Remains on TPN for nutritional support. Remains on Decadron 6 mg IV every 24 hours. Remains on Lovenox 45 mg subcu every 12 hours. Blood work shows a d-dimer of 5.64. No electrolyte abnormalities. Condition is essentially unchanged and probably the same as yesterday. Still on Levemir insulin 10 units along with a sliding scale coverage. Blood sugars are adequate for now. He does have a PICC line in left upper extremity. He has a Kwan catheter in place. At around 10:00 this morning, the patient was trialed on the percent nonrebreather with a high flow oxygen at 60 L with an FiO2 of 90%. He desaturated to the low 60s and he was pl aced accordingly back on BiPAP. 07/07/2020 the patient is a same BiPAP setting which is 60/6 with an FiO2 of 95%. Earlier this morning she was trialed on high flow oxygen with 60 L and FiO2 of 90% and he decompensated and he became profoundly hypoxic and he had to be placed back on the BiPAP. His current pulse ox in the low 90s. He remains on IV Decadron 6 and the rescue 24 hours. He remains on Lovenox 45 mg subcu every 12 hours. Chest x-ray from today is showing stable bilateral interstitial pulmonary infiltrates with some worsening consolidation of the left lower lobe. Meanwhile, the patient is still receiving TPN for nutritional support. He is unable to take oral intake because of his extreme BiPAP dependence. D-dimer is at 4.06 and the patient is on Lovenox 45 mg subcu every 12 hours. He has also LDH level of 962, CRP level is at 8.3, electrolytes are all within normal duran its. Unfortunately, he is still doing poorly and is not showing any signs of recovery. He remains on Levemir insulin 10 units daily along with a sliding- scale coverage. He has a Kwan catheter in place. Respiratory rate is in the mid 30s. He is quite lethargic. 2020, the patient continues to be on a BiPAP at a pressure of 16/6 with an FiO2 of 95%. Awake and alert. Slightly tachypneic. Pulse ox is 89% on the above-mentioned BiPAP setting. Minute ventilation as 40 L as we were seeing the patient and his minute ventilation with a. Otherwise his aspirate has been in the high 20s low 30 range. Whenever he sleeps, his respiratory rate goes down. He wants to stay on the BiPAP and he doesn't want to transition to the high flow oxygen today. Repeat chest x-ray was done and the findings are essentially stable with diffuse bilateral pulmonary infiltrates. No evidence of any pne umothorax. No interval progression or worsening his chest x-ray findings. Meanwhile, his blood work shows no major abnormalities. Blood sugars are not elevated. The patient remains on TPN for nutrition support and the patient remains on Decadron IV every 24 hours on Lovenox 45 mg subcu every 12 hours. D- dimer level is at 4.06. Patient was reevaluated today on 07/09/2020, remains on high flow oxygen using airvo and non-rebreather mask. Patient is on 94% FiO2 and 60 L flow per minute. Patient is about the same, not getting any better not getting any worse. He is noted to be slightly tachypneic. Has BiPAP at bedside, but not using it at present. Basic metabolic profile today is normal., Last LDH was trending down to 962 and C-reactive protein 8.3 Patient was reevaluated today on 07/10/2020, remains on high flow oxygen using Airvo and nonrebreather mask. O2 saturation remains marginal in the low 90s and high 80s patient denies being short of breath. He has intermittent cough. His d-dimer is 5.4 to today. Not significantly changed over the last 1 week. Basic metabolic profile is normal renal profile is normal. His last C-reactive protein was 8.3 and his LDH was 962 from 2 days ago. Chest x-ray from 07/08 continues to show persistent bilateral multifocal and comfortable in particular opacities consistent with COVID-19 infection. Patient was reevaluated today on 07/11/2020, remains on high flow oxygen, patient is on nonrebreather plus airvo 90% FiO2 and 60 L flow, O2 saturation remains marginal in the mid to high 80s. Patient in mild distress, but overall he thi nks he is getting a bit better. Tried today to change position on the patient and see if his oxygenation improves, did not seem to make much of a difference, and the patient could not lay prone. He had even some difficulty laying on the right side. Remained generally weak, not making significant progress since admission. His CBC looks relatively normal his d-dimer is 5 renal profile is normal. Electrolytes are normal. Last chest x-ray from 2 days ago was consistent with COVID-19 pneumonia. Objective - Vital Signs Vital signs: Vital Signs Temp 98.5 F 07/11/20 04:00 Pulse 68 07/11/20 16:00 Resp 20 07/11/20 16:00 BP 155/86 07/11/20 16:00 Pulse Ox 85 L 07/11/20 16:00 Intake & Output 07/10/20 07/11/20 07/11/20 18:59 06:59 18:59 Intake Total 1275 1166 250 Output Total 300 4110 Balance 975 -2944 250 Weight 94 kg Intake: Intake, IV Titration 1035 1046 250 Amount Fat Emulsion 20% 250 ml 250 In Empty Bag 1 bag @ 21 mls/hr IV DAILY ROBERT Rx#: [id number] Mvi, Adult No.4 with Vit 1046 K 10 ml Trace (Conc-1Ml/ Dose) 1 ml Sodium Acetate 40 meq Sodium Phosphate 9 mmol Calcium Gluconate 1 gm Magnesium Sulfate gm 1 gm In Amino Acid 5%- D15w 1,000 ml @ 85 mls/hr IV .BY DURATION ROBERT Rx#: [id number] Sodium Acetate 40 meq 1035 Sodium Phosphate 9 mmol Calcium Gluconate 1 gm Magnesium Sulfate gm 1 gm In Amino Acid 5%-D15w 1, 000 ml @ 85 mls/hr IV .BY DURATION ROBERT Rx#: [id number] Oral 240 120 Output: Urine 300 4110 Other: Voiding Method Indwelling Catheter Indwelling Catheter Indwelling Catheter # Voids 1 - Exam Physical Exam: Revealed a 70-year-old white male on high flow oxygen, not in distress. Head: Atraumatic, normocephalic. HEENT:[Neck is supple.] [No neck masses.] [No thyromegaly.] [No JVD.] Chest: [Bibasilar crackles noted, right more so than left, no rhonchi and no wheezes. Cardiac Exam: [Normal S1 and S2, no S3 gallop, no murmur.] Abdomen: [Soft, nontender, no megaly, no rebound, no guarding, normal bowel sounds.] Extremities: [No clubbing, no edema, no cyanosis.] Neurological Exam: [No focal neurologic deficit.] Alert oriented 3. Psychiatric: Normal mood affect and normal mental status examination - Labs CBC & Chem 7: 07/11/20 08:52 07/11/20 08:52 Labs: Abnormal Lab Results - Last 24 Hours (Table) 07/10/20 07/10/20 07/11/20 Range/Units 17:30 20:03 00:04 Plt Count (150-450) k/uL Lymphocytes # (1.0-4.8) k/uL D-Dimer (<0.60) mg/L FEU Sodium (137-145) mmol/L BUN (9-20) mg/dL POC Glucose (mg/dL) 205 H 173 H 142 H (75-99) mg/dL 07/11/20 07/11/20 07/11/20 Range/Units 06:06 08:52 08:52 Plt Count 127 L (150-450) k/uL Lymphocytes # 0.7 L (1.0-4.8) k/uL D-Dimer (<0.60) mg/L FEU Sodium 134 L (137-145) mmol/L BUN 41 H (9-20) mg/dL POC Glucose (mg/dL) 110 H (75-99) mg/dL 07/11/20 07/11/20 Range/Units 08:52 11:52 Plt Count (150-450) k/uL Lymphocytes # (1.0-4.8) k/uL D-Dimer 5.00 H (<0.60) mg/L FEU Sodium (137-145) mmol/L BUN (9-20) mg/dL POC Glucose (mg/dL) 141 H (75-99) mg/dL Assessment and Plan Assessment: Impression: Acute hypoxic respiratory failure secondary to Covid 19 pneumonia. Patient was outside the window for REM, received toci, remains on Decadron. Patient is still requiring high FiO2 with O2 saturation being marginal. Chronic atrial fibrillation. Previous NM. And history of coronary artery disease. History of gout. Coronary artery disease and previous stent placement. GERD without esophagitis. Benign essential hypertension. Acute kidney injury, improved. Recommendation: Out of the window for REM. Continue the Covid 19 cocktail. Continue Lovenox and Decadron. Continue high flow oxygen and titrate accordingly. We will continue to follow. Prognosis remains extremely poor and guarded. Not much improvement is noted. Time with Patient: Less than 30
--- NOTE | 2020-07-11 17:36 | PN ---
PROGRESS NOTE DATE OF SERVICE: 07/11/2020 I am covering for Dr. Encarnacion. This 70-year-old gentleman was admitted with acute bilateral COVID-19 pneumonia with acute hypoxic respiratory failure, also had sepsis. The patient is on Airvo at 90% FiO2, 60 L and saturating in the 80s. Actually, the patient is extremely short of breath at this time. Most recent chest x-ray was done on July 08 and showed multiple bilateral lesions. Pulmonary is following the patient closely. The patient also had a nonhealing ulceration of the bridge of the nose secondary from use of the BiPAP machine. No chest pain. No palpitations. No fever. PAST MEDICAL HISTORY: Reviewed. REVIEW OF SYSTEMS: CARDIOVASCULAR SYSTEM: No angina. RESPIRATORY: As mentioned earlier. GI: As mentioned earlier. NERVOUS SYSTEM: No numbness or weakness. CURRENT MEDICATIONS: Reviewed include Tylenol, Ventolin, zyloprim, vitamin C, Lipitor vitamin D3, Decadron, Lovenox, Pepcid. Doses reviewed. PHYSICAL EXAM: Patient is alert, oriented x3. Pulse is 66, blood pressure 135/77, respiratory rate 20, temperature 98.5, pulse ox is 80% on Airvo as mentioned earlier. HEENT: Conjunctivae normal. Oral mucosa moist. NECK: No jugular venous distention. No lymph node enlargement. CARDIOVASCULAR: S1, S2, muffled. No S3, no S4, RESPIRATORY: Diminished breath sounds at the bases. Scattered rhonchi and crackles. ABDOMEN: Soft, nontender. LEGS: No edema, no swelling. NERVOUS SYSTEM: No focal deficits. LABS: WBC 18, hemoglobin 13.4, sodium 132, potassium 4. ASSESSMENT: 1. Acute COVID-19 bilateral interstitial pneumonia with acute hypoxic respiratory failure with possible sepsis, present on admission. 2. Acute delirium with acute metabolic encephalopathy. 3. Acute hypoxic encephalopathy. 4. Acute renal failure. 5. Hypoglycemia. 6. Gastroesophageal reflux disease. 7. Chronic paroxysmal atrial fibrillation. 8. Chronic systolic congestive heart failure, ejection fraction 35-40%. 9. Coronary artery disease. 10.History of nicotine dependence. 11.Hypertension. 12.TPN and PICC line. 13.Hyponatremia. 14.Elevated D-dimer. 15.Thrombocytopenia. 16.Lymphopenia. RECOMMENDATIONS AND DISCUSSION: I recommend to continue current management and symptomatic treatment. Otherwise, at this time I recommend continue with current medications, continue with dexamethasone. Continue with TPN. Continue with Lovenox. Continue zinc and rest of medications. I would also recommend ultrasound of the legs to complete the workup. Prognosis guarded. Further recommendations to follow. MMBUDDYL / IJN: [id number] /
[2020-07-11] MEDS: SODIUM CHLORIDE 0.9% 1,000 ML IV SCH (17:39)
[2020-07-11 18:24] LABS: Glucose,Whole Blood 174 mg/dL (75-99)
[2020-07-11] MEDS: OLANZapine 7.5 MG TAB PO SCH (20:57)
[2020-07-11] MEDS: [UNRECOGNIZED DRUG - OTHER] IV SCH ×7 (20:57)
[2020-07-11] MEDS: ATORVASTATIN 10 MG TAB PO SCH (20:57)
[2020-07-11 23:58] LABS: Glucose,Whole Blood 150 mg/dL (75-99)
[2020-07-12] MEDS: INSULIN ASPART (NovoLOG) 100 UNIT/ML VIAL SQ SCH ×4 (05:55→19:10)
[2020-07-12 05:56] LABS: Glucose,Whole Blood 98 mg/dL (75-99)
[2020-07-12 07:11] LABS: Glucose,Whole Blood 121 mg/dL (75-99)
[2020-07-12] MEDS: ALBUTEROL HFA INHALER INHALATION PRN (08:44)
[2020-07-12] MEDS: FAT EMULSION 20% 250 ML in EMPTY BAG 1 BAG IV SCH (08:49)
[2020-07-12] MEDS: ENOXAPARIN 60 MG/0.6 ML SYRINGE SQ SCH ×2 (08:49→21:06)
[2020-07-12] MEDS: DEXAMETHASONE SOD PHOSPHATE 10 MG/ML 1 ML VIAL IV SCH (08:50)
[2020-07-12] MEDS: ASCORBIC ACID 500 MG TAB PO SCH (08:50)
[2020-07-12] MEDS: METOPROLOL TARTRATE 25 MG TAB PO SCH (08:50)
[2020-07-12] MEDS: ZINC SULFATE 220 MG CAP PO SCH (08:50)
[2020-07-12] MEDS: FAMOTIDINE 20 MG TAB PO SCH (08:50)
[2020-07-12] MEDS: allopurinoL 100 MG TAB PO SCH (08:50)
[2020-07-12] MEDS: INSULIN DETEMIR (LEVEMIR) 100 UNIT/ML SYR SQ SCH (08:51)
[2020-07-12] MEDS: CHOLECALCIFEROL 25 MCG (1000 IU) TABLET PO SCH (08:51)
[2020-07-12] MEDS: SODIUM PHOSPHATE IV SCH ×14 (08:52→12:46)
[2020-07-12] MEDS: SODIUM ACETATE IV SCH ×14 (08:52→12:46)
[2020-07-12] MEDS: [UNRECOGNIZED DRUG - OTHER] IV SCH ×14 (08:52→12:46)
[2020-07-12] MEDS: CALCIUM GLUCONATE IV SCH ×14 (08:52→12:46)
[2020-07-12] MEDS ORDERED: MORPHINE SULFATE 4 MG/ML SYRINGE IVP STA (10:50)
--- NOTE | 2020-07-12 11:29 | XR ---
EXAMINATION TYPE: XR chest 1V portable DATE OF EXAM: 07/12/2020 COMPARISON: Prior chest x-ray 07/08/2020 HISTORY: Hypoxemia TECHNIQUE: Single frontal view of the chest is obtained. FINDINGS: Bilateral airspace disease, prominence interstitium slightly more conspicuous than on prio r exam. No evident pneumothorax or pleural effusion. Cardiac mediastinal silhouette is stable. Left-s ided PICC line shows the distal tip in a stable position overlying superior vena cava. There are over lying artifacts. IMPRESSION: Suspect some increasing confluence of airspace disease.
[2020-07-12 11:40] LABS: Basophils # (A) 0.1 k/uL (0-0.2); Basophils % (A) 1 %; Eosinophils # (A) 0.5 k/uL (0-0.7); Eosinophils % (A) 5 %; HCT 43.1 % (39.0-53.0); HGB 14.6 gm/dL (13.0-17.5); Lymphocytes # (A) 0.5 k/uL (1.0-4.8); Lymphocytes % (A) 5 %; MCH 30.8 pg (25.0-35.0); MCV 90.5 fL (80.0-100.0); Mean Platelet Volume 8.6; Monocytes # (A) 0.5 k/uL (0-1.0); Monocytes % (A) 5 %; Neutrophils % (A) 83 %; Platelet Count 133 k/uL (150-450); RBC 4.76 m/uL (4.30-5.90); RDW 14.3 % (11.5-15.5); WBC 9.6 k/uL (3.8-10.6)
[2020-07-12 12:45] LABS: ALT 119 U/L (4-49); AST 57 U/L (17-59); African American GFR (CKD) >90 (>60 ml/min/1.73 sqM); Albumin 2.7 g/dL (3.5-5.0); Alkaline Phosphatase 173 U/L (38-126); Anion Gap 2 mmol/L; Blood Urea Nitrogen 39 mg/dL (9-20); Calcium 8.5 mg/dL (8.4-10.2); Carbon Dioxide 26 mmol/L (22-30); Chloride 105 mmol/L (98-107); Glucose 138 mg/dL (74-99); Non-African American GFR(CKD) >90 (>60 ml/min/1.73 sqM); Phosphorus 3.7 mg/dL (2.5-4.5); Sodium 133 mmol/L (137-145); Total Protein 5.7 g/dL (6.3-8.2); Triglycerides 176 mg/dL (<150)
--- NOTE | 2020-07-12 16:35 | PN ---
PROGRESS NOTE I am covering for Dr. Encarnacion. DATE OF SERVICE: 07/12/2020 HISTORY OF PRESENT ILLNESS: This 70-year-old gentleman with past medical history of multiple medical problems was admitted with COVID-19 pneumonia, interstitial bilateral pneumonia. The patient has taken a turn for the worse. Patient was started on BiPAP. The patient is being transferred to the ICU at this time. Dr. Rodriguez is following the patient closely. The patient is on 100% BiPAP at this time. The patient is mildly confused. Past medical history reviewed. Review of systems could not be taken; the patient is on BiPAP and extremely short of breath. CURRENT MEDICATIONS: Tylenol, Ventolin, zyloprim, vitamin C, Lipitor, vitamin D3, Lovenox, Pepcid, TPN. PHYSICAL EXAMINATION: Patient is conscious. Pulse is 51, blood pressure 104/60, respiration 13, temperature 97.6, pulse ox 92% on BiPAP. HEENT: Conjunctivae normal. NECK: No jugular venous distention. CARDIOVASCULAR SYSTEM: S1, S2 muffled. RESPIRATORY SYSTEM: Breath sounds diminished at the bases. A few scattered rhonchi and crackles. ABDOMEN: Soft, non-tender. NERVOUS SYSTEM: No focal deficit. LABS: Platelets are 133. Sodium 133. ALT is 119, triglycerides are 176. ASSESSMENT: 1. Acute COVID-19 bilateral interstitial pneumonia with acute hypoxic respiratory failure with possible sepsis, present on admission. 2. Acute delirium with acute metabolic encephalopathy. 3. Acute hypoxic encephalopathy. 4. Acute renal failure. 5. Hypoglycemia. 6. Gastroesophageal reflux disease. 7. Chronic paroxysmal atrial fibrillation. 8. Chronic systolic congestive heart failure, ejection fraction 35% to 40%. 9. Coronary artery disease. 10.History of nicotine dependence. 11.Hypertension. 12.Total parenteral nutrition and PICC line. 13.Hyponatremia. 14.Elevated D-dimer. 15.Thrombocytopenia. 16.Lymphopenia. 17.Mild to moderate protein-calorie malnutrition. 18.FULL CODE. RECOMMENDATIONS AND DISCUSSION: I recommend to continue current medications, continue with the monitoring, symptomatic treatment. Continue with bronchodilators. Continue the rest of medications, including Lovenox. D-dimer was elevated. Venous Doppler was negative. Guarded prognosis. Further recommendations to follow. MMODL / IJN: [id number] /
--- NOTE | 2020-07-12 17:58 | P.PN ---
Subjective Progress Note Date: 07/12/20 Principal diagnosis: Acute hypoxic respiratory failure secondary to COVID-19 pneumonia This is a 70-year-old gentleman that was seen in the emergency room on June 21. He was sent into the emergency room after being seen by his primary care doctor because of increasing shortness of breath, and concerns that the patient might have COVID 19. In addition to shortness of breath, the patient states he's been having lots of chest congestion, and is been coughing. When he coughs, it is painful in his chest. He has been sick for at least 2 weeks. In addition, he has muscle aches and joint aches, weakness and fatigue, and fever and chills. Currently, he is on a nonrebreather mask. Saturations are 92%. His primary care physician Dr. Vijay Encarnacion. He was not receiving any IV fluids. His primary medical problems include atrial fibrillation, coronary artery disease, hype rlipidemia, hypertension, gastroesophageal reflux disease, and prior myocardial infarction. The patient is a lifelong nontobacco user. White count is 4.9, hemoglobin 13.5, hematocrit 39.5, platelet count 92,000. PTT 61.3. D-dimer 2.41. Sodium 132, potassium 4.8, chloride 105, CO2 18, anion gap 9, BUN and creatinine 52 and 2.05. Calcium 7.6, AST 156, pO2 102, LDH 2018. C-reactive protein 158. I was not able to look at the chest x-ray. There is apparently a partially occlusive opacity at the right lung base consistent with acute pneumonic process. CT angiogram was not performed. Patient was reevaluated today on 06/23/2020, patient is feeling better today compared to how he felt yesterday. Patient is on high flow cannula running at 15 L/m, his O2 saturation is in the mid to high 80s he is on 100% FiO2 basically. His chest x-ray does not seem to be impressive, he does have consoli dative opacity in the right lung base consistent with acute pneumonic process. Left lung is relatively clear. No significant pulmonary congestion. D-dimer is 2.56. Renal profile is not good enough for performing a CT angiogram of the chest, however I will recommend bilateral venous Doppler on this patient just to make sure we were not dealing with thromboembolic process. Again the patient tells me that his feeling better today compared to how he felt yesterday. Clinically improving. Patient was reevaluated today on 06/24/2020, patient remains on high flow oxygen. He is on 15 L high flow cannula, and his O2 saturations 92% at best. Patient continues to have shortness of breath, intermittent episodes of cough. He has no fever, his vital signs are relatively stable. During my evaluation, patient was constantly coughing. CBC is relatively normal electrolytes are normal BUN is 52 creatinine 1.45. LDH is elevated at 1586. Venous Doppler yesterday was negative. Chest x-ray on admission showed consolidation at the right lung base. I also suspect some consolidation at the left base/retrocardiac area. Progress note dated 06/25/2020. Currently, the patient was on BiPAP and on percent. Earlier today, he desaturated, and the nurses had a hard time getting his saturations back up. We did do a blood gas on the patient. PO2 was 63, pCO2 was 33, pH was 7.44. That was on 100% on the BiPAP. White count 14.8, hemoglobin hematocrit and platelet count all normal. Sodium 136, potassium 4.9, chlorides 107, CO2 20, anion gap 9, BUN 45, creatinine 1.28. Chest x-ray today showed diffuse bilateral patchy infiltrates which are stable. Yesterday, he was on high flow nasal O2 at 15 L/m. Progress note dated 06/26/2020. 70-year-old male, currently on BiPAP, at 16/6 and 80%. His saturations were good, so the FiO2 was dropped from 80% down to 60%. The patient appears to be d oing reasonably well, although he did become somewhat tachypnea today when he was being evaluated here. Saturations are 90% on the 60% FiO2. Temperature is 98.1, and blood pressure 173/104. White count 14.9, and hemoglobin, hematocrit, and platelet count are all normal. Sodium 135, potassium 5.2, chlorides 106, CO2 18, anion gap 11, BUN 38, creatinine 1.23. Chest x-ray from June 25, shows bilateral patchy infiltrates. The patient is seen today 06/27/2020 in follow-up on the regular medical floor. He is currently resting fairly comfortably in bed. He is maintaining O2 saturation in the 90s on BiPAP 16/6 and 60% FiO2. 0.9 normal saline at 50 MLS per hour. Chest x-ray continues to show patchy bilateral infiltrates compatible with superimposed interstitial pneumonia. White count 8.3. Hemoglobin 13.4. Sodium 139. Potassium 5.6. Creatinine 1.13. He is continued on dexamethasone, Xarelto, vitamin supplements. The patient is seen today 06/28/2020 follow-up on the selective care unit. He is currently sitting up in bed. Remains on BiPAP 16/6 and 100% FiO2 maintaining O2 saturation the high 80s low 90s. He is 0.9 normal saline at 50 MLS per hour. He is now on Lovenox, dexamethasone, vitamin supplements. PICC line placed today. The patient is seen today 06/29/2020 follow-up on the selective care unit. He remains on BiPAP 16/6 and 100% FiO2 to maintain O2 saturations in the low 90s. He is afebrile. Currently being nourished with TPN via PICC line. 0.9 normal saline at 50 ML's per hour. Blood cultures reveal no growth. Sodium 140. Potassium 5.1. Creatinine 1.18. Glucose 125. He remains on dexamethasone, Lovenox, vitamin supplements. The patient is seen today 06/30/2020 follow-up on the selective care unit. He is currently resting fairly comfortably in bed. Remains on BiPAP 16/6 at 100% FiO2. He is being nourished with TPN and lipids via PICC line. 0.9 normal saline at 50 MLS per hour. He states he is still quite fatigued but improved today compared to yesterday. Cultures reveal no growth. D-dimer 10.2. Sodium 140. Potassium 5.2. Creatinine 0.99. LDH 1591. C-reactive protein 53.8. He remains on therapeutic Lovenox, dexamethasone, vitamin supplements. The patient is seen today 07/01/2020 in follow-up on the selective care unit. He is resting comfortably in bed. Continued on BiPAP 16/6 and 100% FiO2 to maintain O2 saturations in the high 80s low 90s. Chest x-ray continues to show scattered bilateral lung infiltrates which are stable compared to previous. Sodium 142. Potassium 4.8. Creatinine 0.95. Yesterday's d-dimer 10.23. Remains on therapeutic Lovenox at 100 mg subcu every 12 hours, Decadron, vitamin supplements. On today's evaluation of 07/02/2020 on seeing the patient for a follow-up. The patient remains on a BiPAP at a pressure of 16/6 cm of water and FiO2 of 80%. The patient is also receiving TPN for nutritional support. Therapeutic dose of Lovenox. His d-dimer was quite elevated at 10.2, normal renal function, normal electrolytes, CRP was elevated at 53 with an LDH level of 1591. Most recent chest x-ray from 07/01/2030 showing peripherally located infiltrates bilaterally. The patient is able to generate tidal volume of around 370 on the BiPAP machine. His extremities around 28. He is very weak. He cannot tolerate being off the BiPAP as the patient immediately desaturates even was taken pills or sips of water. He remains on TPN for nutritional support. His symptoms of his blood work today, he has white cell count of 9.8 with a hemoglobin of 12, sodium is 139 and a creatinine of 0.9. His current pulse ox on the percent on above-mentioned BiPAP setting with an FiO2 of 80%.Inflammatory markers are still elevated. D-dimer is at 5 and the patient also has an LDH level of 1009 with a CRP of 143.The chest x-ray from yesterday was showing worsening in the bilateral lower lobe pulmonary infiltrates especially in the right lower lobe. 07/03/2020 the patient remains on BiPAP at a pressure of 16/6 with an FiO2 of 80% and this is essentially the same setting as yesterday. His current vitals show a pulse ox of 94% on above-mentioned ventilator setting. He is afebrile. Breathing is nonlabored. He is still on TPN for nutritional support. His chest x-ray from 07/01/2020 showed peripheral pulmonary infiltrates consistent with Coumadin related pneumonia. No repeat x-rays since then. The patient remains considerably weak. His blood work from today showing no major electrolyte abnormalities. His LDH level was dropping yesterday down to 1009. He is still on Decadron 6 mg IV every 24 hours. He is also on Lovenox 45 mg subcu every 12 hours. On the BiPAP machine, degenerative tidal volumes around 400. 06/03/2020 this morning the patient is off the BiPAP and the patient is currently on a high flow oxygen 60 L with an FiO2 of 86%. The patient is also using 100% nonrebreather facemask. His current pulse ox is around 91%. He has developed skin breaks and ulceration from his BiPAP mask and is currently off the BiPAP. He is resting comfortably in bed. He is still on Lovenox 45 mg subcu every 12 hours. There is on steroids and the patient is receiving De cadron 6 mg IV every 24 hours. The patient is also on TPN for nutritional support. LDH level is at 893 which is lower than the CRP level is down to 50. He is quite weak and debilitated. His white cell count of 6.8 with a hemoglobin of 12.3. No fever. No other new complaints otherwise for now. Most recent d- dimer was at 5 from 07/02/2020. 07/05/2020, the patient remains on BiPAP. The patient was on high flow oxygen yesterday and desaturated and he decompensated and he was switched to a BiPAP at a pressure of 16/6 with an FiO2 of 80%. This occurred when the patient on was trying to have some breakfast earlier this morning. He was on high flow oxygen. He dropped his oxygen saturations significantly and he was very slow in recovery. At that point, he was switched to a BiPAP. His current pulse ox is 90%. He is quite lethargic and somnolent. He is unable to eat and he has TPN for nutritional support. He continues to be on Decadron 6 mg IV every 24 hours. He is also on Lovenox 45 mg subcutaneously every 12 hours. On his blood work, he had a d-dimer of 6.49 which is slightly higher than the white cell count is at 8.6 with a hemoglobin of 12.8. TPN is current to being administered for nutritional support. No other significant events , otherwise his night was uneventful.. The PICC line is in the left upper extremity. The patient also has a Kwan catheter in place. Each in relating a tidal volume of 550 and his respiratory rate is currently in the mid 30s. He seems to be quite comfortable. He is however lethargic. 07/06/2020, the patient is on a BiPAP at a pressure of 16/6 with an FiO2 of 100%. Pulse ox is currently at around 88%. He was having some oxygen desaturations and the patient was brought up to 100% on her BiPAP FiO2. The patient's subsequent reading in a pulse ox in the order of 91%. Remains on TPN for nutritional support. Remains on Decadron 6 mg IV every 24 hours. Remains on Lovenox 45 mg subcu every 12 hours. Blood work shows a d-dimer of 5.64. No electrolyte abnormalities. Condition is essentially unchanged and probably the same as yesterday. Still on Levemir insulin 10 units along with a sliding scale coverage. Blood sugars are adequate for now. He does have a PICC line in left upper extremity. He has a Kwan catheter in place. At around 10:00 this morning, the patient was trialed on the percent nonrebreather with a high flow oxygen at 60 L with an FiO2 of 90%. He desaturated to the low 60s and he was placed accordingly back on BiPAP. 07/07/2020 the patient is a same BiPAP setting which is 60/6 with an FiO2 of 95%. Earlier this morning she was trialed on high flow oxygen with 60 L and FiO2 of 90% and he decompensated and he became profoundly hypoxic and he had to be placed back on the BiPAP. His current pulse ox in the low 90s. He remains on IV Decadron 6 and the rescue 24 hours. He remains on Lovenox 45 mg subcu every 12 hours. Chest x-ray from today is showing stable bilateral interstitial pulmonary infiltrates with some worsening consolidation of the left lower lobe. Meanwhile, the patient is still receiving TPN for nutritional support. He is unable to take oral intake because of his extreme BiPAP dependence. D-dimer is at 4.06 and the patient is on Lovenox 45 mg subcu every 12 hours. He has also LDH level of 962, CRP level is at 8.3, electrolytes are all within normal limits. Unfortunately, he is still doing poorly and is not showing any signs of recovery. He remains on Levemir insulin 10 units daily along with a sliding- scale coverage. He has a Kwan catheter in place. Respiratory rate is in the mid 30s. He is quite lethargic. 2020, the patient continues to be on a BiPAP at a pressure of 16/6 with an FiO2 of 95%. Awake and alert. Slightly tachypneic. Pulse ox is 89% on the above-mentioned BiPAP setting. Minute ventilation as 40 L as we were seeing the patient and his minute ventilation with a. Otherwise his aspirate has been in the high 20s low 30 range. Whenever he sleeps, his respiratory rate goes down. He wants to stay on the BiPAP and he doesn't want to transition to the high flow oxygen today. Repeat chest x-ray was done and the findings are essentially stable with diffuse bilateral pulmonary infiltrates. No evidence of any pneumothorax. No interval progression or worsening his chest x-ray findings. Meanwhile, his blood work shows no major abnormalities. Blood sugars are not elevated. The patient remains on TPN for nutrition support and the patient remains on Decadron IV every 24 hours on Lovenox 45 mg subcu every 12 hours. D- dimer level is at 4.06. Patient was reevaluated today on 07/09/2020, remains on high flow oxygen using airvo and non-rebreather mask. Patient is on 94% FiO2 and 60 L flow per minute. Patient is about the same, not getting any better not getting any worse. He is noted to be slightly tachypneic. Has BiPAP at bedside, but not using it at present. Basic metabolic profile today is normal., Last LDH was trending down to 962 and C-reactive protein 8.3 Patient was reevaluated today on 07/10/2020, remains on high flow oxygen using Airvo and nonrebreather mask. O2 saturation remains marginal in the low 90s and high 80s patient denies being short of breath. He has intermittent cough. His d-dimer is 5.4 to today. Not significantly changed over the last 1 week. Basic metabolic profile is normal renal profile is normal. His last C-reactive protein was 8.3 and his LDH was 962 from 2 days ago. Chest x-ray from 07/08 continues to show persistent bilateral multifocal and comfortable in particular opacities consistent with COVID-19 infection. Patient was reevaluated today on 07/11/2020, remains on high flow oxygen, patient is on nonrebreather plus airvo 90% FiO2 and 60 L flow, O2 saturation remains marginal in the mid to high 80s. Patient in mild distress, but overall he thinks he is getting a bit better. Tried today to change position on the patient and see if his oxygenation improves, did not seem to make much of a difference, and the patient could not lay prone. He had even some difficulty laying on the right side. Remained generally weak, not making significant progress since admission. His CBC looks relatively normal his d-dimer is 5 renal profile is normal. Electrolytes are normal. Last chest x-ray from 2 days ago was consistent with COVID-19 pneumonia. On 07/12/2020 patient seen in follow-up on medical surgical floor, this morning his dyspnea and hypoxia have worsened, he is displaying decreasing oxygen saturations and increasing work of breathing. Patient has been on BiPAP support with pressures of 12 and 6 and 200%, and despite that patient is unable to maintain O2 saturations above 80-82%, he is quite tachypneic. Patient remains on multivitamins, steroids, and Lovenox 45 mg twice daily. He is status post Toci on 07/06/2020. He is receiving nutritional support in the form of TPN, his been unable to take in much by mouth related to his dyspnea, hypoxia, and dependence on high flow oxygen and BiPAP. Stat chest x-ray was obtained showing increasing confluence of airspace disease, and patient's steroids have been switched to Solu-Medrol 60 mg every 6 hours. Today's labs have been reviewed Objective - Vital Signs Vital signs: Vital Signs Temp 97.6 F 07/12/20 16:00 Pulse 68 07/12/20 16:00 Resp 14 07/12/20 16:00 BP 122/79 07/12/20 16:00 Pulse Ox 88 L 07/12/20 16:00 Intake & Output 07/11/20 07/12/20 07/12/20 18:59 06:59 18:59 Intake Total 490 531.5 Output Total 1700 1300 350 Balance -1210 -1300 181.5 Intake: Intake, IV Titration 250 531.5 Amount Fat Emulsion 20% 250 ml 250 In Empty Bag 1 bag @ 21 mls/hr IV DAILY ROBERT Rx#: [id number] Mvi, Adult No.4 with Vit 531.5 K 10 ml Trace (Conc-1Ml/ Dose) 1 ml Sodium Acetate 50 meq Sodium Phosphate 9 mmol Calcium Gluconate 1 gm Magnesium Sulfate gm 1 gm In Amino Acid 5%- D15w 1,000 ml @ 85 mls/hr IV .BY DURATION ROBERT Rx#: [id number] Oral 240 Output: Urine 1700 1300 350 Other: Voiding Method Indwelling Catheter Indwelling Catheter Indwelling Catheter - Exam GENERAL EXAM: Alert, very pleasant, 70-year-old white male, on BiPAP support, with current pressures 14/8 and FiO2 100% with a pulse ox of 86% tachypneic and short of breath with any exertion, does not tolerate BiPAP mask removal at all, and is very BiPAP dependent at this time HEAD: Normocephalic/atraumatic. EYES: Normal reaction of pupils, equal size. Conjunctiva pink, sclera white. NOSE: Clear with pink turbinates. THROAT: No erythema or exudates. NECK: No masses, no JVD, no thyroid enlargement, no adenopathy. CHEST: No chest wall deformity. Symmetrical expansion. LUNGS: Equal air entry with diminished breath sounds bilaterally, with bilateral base crackles CVS: Regular rate and rhythm, normal S1 and S2, no gallops, no murmurs, no rubs ABDOMEN: Soft, nontender. No hepatosplenomegaly, normal bowel sounds, no guarding or rigidity. EXTREMITIES: No clubbing, no edema, no cyanosis, 2+ pulses and upper and lower extremities. MUSCULOSKELETAL: Muscle strength and tone normal. SPINE: No scoliosis or deformity SKIN: No rashes CENTRAL NERVOUS SYSTEM: Alert and oriented -3. No focal deficits, tone is normal in all 4 extremities. PSYCHIATRIC: Alert and oriented -3. Appropriate affect. Intact judgment and insight. - Labs CBC & Chem 7: 07/12/20 10:18 07/12/20 10:18 Labs: Abnormal Lab Results - Last 24 Hours (Table) 07/11/20 07/11/20 07/12/20 Range/Units 18:23 23:54 07:09 Plt Count (150-450) k/uL Neutrophils # (1.3-7.7) k/uL Lymphocytes # (1.0-4.8) k/uL Sodium (137-145) mmol/L BUN (9-20) mg/dL Glucose (74-99) mg/dL POC Glucose (mg/dL) 174 H 150 H 121 H (75-99) mg/dL ALT (4-49) U/L Alkaline Phosphatase (38-126) U/L Total Protein (6.3-8.2) g/dL Albumin (3.5-5.0) g/dL Triglycerides (<150) mg/dL 07/12/20 07/12/20 Range/Units 10:18 10:18 Plt Count 133 L (150-450) k/uL Neutrophils # 8.0 H (1.3-7.7) k/uL Lymphocytes # 0.5 L (1.0-4.8) k/uL Sodium 133 L (137-145) mmol/L BUN 39 H (9-20) mg/dL Glucose 138 H (74-99) mg/dL POC Glucose (mg/dL) (75-99) mg/dL ALT 119 H (4-49) U/L Alkaline Phosphatase 173 H (38-126) U/L Total Protein 5.7 L (6.3-8.2) g/dL Albumin 2.7 L (3.5-5.0) g/dL Triglycerides 176 H (<150) mg/dL Assessment and Plan Plan: Assessment: #1. Acute hypoxemic respiratory failure secondary to COVID-19 pneumonia. Outsi de the window for Remdesivir, that is post Toci 800 mg on 07/06/2020 for worsening hypoxic respiratory failure, patient remains very much BiPAP dependent and has not tolerated transitioning to high flow oxygen very well, he required transfer to the intensive care unit today on 07/12/2020 and current BiPAP settings of 14/8 and FiO2 of 100% #2. Increased inflammatory markers related to the above, improving #3. Increased d-dimer, lower extremity Dopplers showed no evidence of DVT, patient remains on Lovenox 45 mg twice daily and a d-dimer is improving #4. History of atrial fibrillation, paroxysmal and patient is not on any chronic anticoagulation #5. Coronary artery disease with previous stent placement #6. GERD/reflux #7. Hypertension #8. Hyperlipidemia #9. History of rheumatic fever #10. History of gout #11. Acute kidney injury recovered #12. Decreased oral intake and inability to sustain oral intake related to BiPAP device, and dependence on noninvasive ventilatory support, patient is currently on TPN for nutritional support Plan: Continue BiPAP support at pressures of 14/8 and FiO2 of 100% Patient has been transferred to the ICU for closer monitoring We'll switch Decadron to IV Solu-Medrol 60 mg every 6 hours Continue current dose Lovenox Morphine 2-4 mg for anxiety and breathlessness, may consider Precedex if needed Continue TPN for nutritional support Continue close monitoring in the intensive care unit and there is a possibility patient's condition may further decline and he may need intubation and placement on mechanical ventilator For now continue BiPAP support Overall prognosis is guarded I performed a history & physical examination of the patient and discussed their management with my nurse practitioner, Constance El. I reviewed the nurse practitioner's note and agree with the documented findings and plan of care. Lung sounds are positive for bibasilar crackles. The findings and the impression was discussed with the patient. I attest to the documentation by the nurse practitioner. Time with Patient: Greater than 30
[2020-07-12] MEDS: SODIUM CHLORIDE 0.9% 1,000 ML IV SCH (19:09)
[2020-07-12] MEDS: methylPREDNISolone SOD SUCCI 125 MG/2 ML VIAL IV SCH (19:13)
[2020-07-12] MEDS: MORPHINE SULFATE 2 MG/ML SYRINGE IVP PRN (22:25)
[2020-07-13 00:18] LABS: Glucose,Whole Blood 205 mg/dL (75-99)
[2020-07-13] MEDS: INSULIN ASPART (NovoLOG) 100 UNIT/ML VIAL SQ SCH ×4 (00:38→17:31)
[2020-07-13] MEDS: methylPREDNISolone SOD SUCCI 125 MG/2 ML VIAL IV SCH ×4 (00:39→18:18)
[2020-07-13] MEDS: [UNRECOGNIZED DRUG - OTHER] IV SCH ×14 (02:08→05:49)
[2020-07-13] MEDS: SODIUM ACETATE IV SCH ×28 (02:08→18:17)
[2020-07-13] MEDS: SODIUM PHOSPHATE IV SCH ×14 (02:08→05:49)
[2020-07-13] MEDS: CALCIUM GLUCONATE IV SCH ×28 (02:08→18:17)
[2020-07-13 05:37] LABS: Basophils % (A) 0 %; Eosinophils % (A) 0 %; HCT 40.9 % (39.0-53.0); HGB 13.9 gm/dL (13.0-17.5); Lymphocytes # (A) 0.5 k/uL (1.0-4.8); Lymphocytes % (A) 5 %; MCH 31.1 pg (25.0-35.0); MCV 91.2 fL (80.0-100.0); Mean Platelet Volume 8.5; Monocytes # (A) 0.5 k/uL (0-1.0); Monocytes % (A) 6 %; Neutrophils # (A) 7.9 k/uL (1.3-7.7); Neutrophils % (A) 88 %; Platelet Count 111 k/uL (150-450); RBC 4.48 m/uL (4.30-5.90); RDW 13.7 % (11.5-15.5)
[2020-07-13] MEDS: ASCORBIC ACID 500 MG TAB PO SCH ×2 (05:42→08:48)
[2020-07-13] MEDS: METOPROLOL TARTRATE 25 MG TAB PO SCH ×2 (05:43→08:48)
[2020-07-13] MEDS: OLANZapine 7.5 MG TAB PO SCH (05:43)
[2020-07-13] MEDS: ATORVASTATIN 10 MG TAB PO SCH (05:43)
[2020-07-13 05:46] LABS: ALT 119 U/L (4-49); AST 46 U/L (17-59); African American GFR (CKD) >90 (>60 ml/min/1.73 sqM); Albumin 2.8 g/dL (3.5-5.0); Alkaline Phosphatase 136 U/L (38-126); Anion Gap 6 mmol/L; Blood Urea Nitrogen 42 mg/dL (9-20); C Reactive Protein 0.8 mg/dL (<1.0); Calcium 8.8 mg/dL (8.4-10.2); Carbon Dioxide 26 mmol/L (22-30); Chloride 103 mmol/L (98-107); Glucose 176 mg/dL (74-99); LDH 1492 U/L (313-618); Magnesium 2.1 mg/dL (1.6-2.3); Non-African American GFR(CKD) >90 (>60 ml/min/1.73 sqM); Phosphorus 4.6 mg/dL (2.5-4.5); Potassium 4.5 mmol/L (3.5-5.1); Sodium 135 mmol/L (137-145); Total Bilirubin 0.8 mg/dL (0.2-1.3); Total Protein 5.8 g/dL (6.3-8.2)
[2020-07-13 06:22] LABS: Glucose,Whole Blood 183 mg/dL (75-99)
[2020-07-13] MEDS: ALBUTEROL HFA INHALER INHALATION PRN (08:11)
[2020-07-13] MEDS: ZINC SULFATE 220 MG CAP PO SCH (08:48)
[2020-07-13] MEDS: allopurinoL 100 MG TAB PO SCH (08:48)
[2020-07-13] MEDS: CHOLECALCIFEROL 25 MCG (1000 IU) TABLET PO SCH (08:48)
[2020-07-13] MEDS: FAMOTIDINE 20 MG/2 ML VIAL IV SCH (09:07)
[2020-07-13] MEDS: ENOXAPARIN 60 MG/0.6 ML SYRINGE SQ SCH (09:07)
[2020-07-13] MEDS: INSULIN DETEMIR (LEVEMIR) 100 UNIT/ML SYR SQ SCH (09:07)
[2020-07-13] MEDS: [UNRECOGNIZED DRUG - OTHER] IV SCH ×14 (09:10→18:17)
[2020-07-13] MEDS: MAGNESIUM SULFATE IV SCH ×14 (09:10→18:17)
--- NOTE | 2020-07-13 09:21 | XR ---
EXAMINATION TYPE: XR chest 1V portable DATE OF EXAM: 07/13/2020 COMPARISON: Chest x-ray 07/12/2020 HISTORY: Covid pneumonia TECHNIQUE: Single frontal view of the chest is obtained. FINDINGS: Bilateral mixed interstitial and airspace disease is again noted, there may be some improv ement in aeration, there is improvement in lung volumes. No evident pneumothorax or pleural effusion. Cardiac mediastinal silhouette shows a similar appearance. There are overlying artifacts. IMPRESSION: Improvement in aeration.
[2020-07-13] MEDS: MORPHINE SULFATE 2 MG/ML SYRINGE IVP PRN ×2 (10:13→18:18)
[2020-07-13] MEDS: FAT EMULSION 20% 250 ML in EMPTY BAG 1 BAG IV SCH (11:12)
[2020-07-13 12:05] LABS: Glucose,Whole Blood 332 mg/dL (75-99)
[2020-07-13 12:17] LABS: Glucose,Whole Blood 308 mg/dL (75-99)
[2020-07-13] MEDS: METOPROLOL TARTRATE 5 MG/5 ML VIAL IVP SCH ×2 (12:40→17:38)
--- NOTE | 2020-07-13 12:56 | P.PN ---
Subjective Progress Note Date: 07/13/20 Principal diagnosis: Acute hypoxic respiratory failure secondary to COVID-19 pneumonia This is a 70-year-old gentleman that was seen in the emergency room on June 21. He was sent into the emergency room after being seen by his primary care doctor because of increasing shortness of breath, and concerns that the patient might have COVID 19. In addition to shortness of breath, the patient states he's been having lots of chest congestion, and is been coughing. When he coughs, it is painful in his chest. He has been sick for at least 2 weeks. In addition, he has muscle aches and joint aches, weakness and fatigue, and fever and chills. Currently, he is on a nonrebreather mask. Saturations are 92%. His primary care physician Dr. Vijay Encarnacion. He was not receiving any IV fluids. His primary medical problems include atrial fibrillation, coronary artery disease, hype rlipidemia, hypertension, gastroesophageal reflux disease, and prior myocardial infarction. The patient is a lifelong nontobacco user. White count is 4.9, hemoglobin 13.5, hematocrit 39.5, platelet count 92,000. PTT 61.3. D-dimer 2.41. Sodium 132, potassium 4.8, chloride 105, CO2 18, anion gap 9, BUN and creatinine 52 and 2.05. Calcium 7.6, AST 156, pO2 102, LDH 2018. C-reactive protein 158. I was not able to look at the chest x-ray. There is apparently a partially occlusive opacity at the right lung base consistent with acute pneumonic process. CT angiogram was not performed. Patient was reevaluated today on 06/23/2020, patient is feeling better today compared to how he felt yesterday. Patient is on high flow cannula running at 15 L/m, his O2 saturation is in the mid to high 80s he is on 100% FiO2 basically. His chest x-ray does not seem to be impressive, he does have consoli dative opacity in the right lung base consistent with acute pneumonic process. Left lung is relatively clear. No significant pulmonary congestion. D-dimer is 2.56. Renal profile is not good enough for performing a CT angiogram of the chest, however I will recommend bilateral venous Doppler on this patient just to make sure we were not dealing with thromboembolic process. Again the patient tells me that his feeling better today compared to how he felt yesterday. Clinically improving. Patient was reevaluated today on 06/24/2020, patient remains on high flow oxygen. He is on 15 L high flow cannula, and his O2 saturations 92% at best. Patient continues to have shortness of breath, intermittent episodes of cough. He has no fever, his vital signs are relatively stable. During my evaluation, patient was constantly coughing. CBC is relatively normal electrolytes are normal BUN is 52 creatinine 1.45. LDH is elevated at 1586. Venous Doppler yesterday was negative. Chest x-ray on admission showed consolidation at the right lung base. I also suspect some consolidation at the left base/retrocardiac area. Progress note dated 06/25/2020. Currently, the patient was on BiPAP and on percent. Earlier today, he desaturated, and the nurses had a hard time getting his saturations back up. We did do a blood gas on the patient. PO2 was 63, pCO2 was 33, pH was 7.44. That was on 100% on the BiPAP. White count 14.8, hemoglobin hematocrit and platelet count all normal. Sodium 136, potassium 4.9, chlorides 107, CO2 20, anion gap 9, BUN 45, creatinine 1.28. Chest x-ray today showed diffuse bilateral patchy infiltrates which are stable. Yesterday, he was on high flow nasal O2 at 15 L/m. Progress note dated 06/26/2020. 70-year-old male, currently on BiPAP, at 16/6 and 80%. His saturations were good, so the FiO2 was dropped from 80% down to 60%. The patient appears to be d oing reasonably well, although he did become somewhat tachypnea today when he was being evaluated here. Saturations are 90% on the 60% FiO2. Temperature is 98.1, and blood pressure 173/104. White count 14.9, and hemoglobin, hematocrit, and platelet count are all normal. Sodium 135, potassium 5.2, chlorides 106, CO2 18, anion gap 11, BUN 38, creatinine 1.23. Chest x-ray from June 25, shows bilateral patchy infiltrates. The patient is seen today 06/27/2020 in follow-up on the regular medical floor. He is currently resting fairly comfortably in bed. He is maintaining O2 saturation in the 90s on BiPAP 16/6 and 60% FiO2. 0.9 normal saline at 50 MLS per hour. Chest x-ray continues to show patchy bilateral infiltrates compatible with superimposed interstitial pneumonia. White count 8.3. Hemoglobin 13.4. Sodium 139. Potassium 5.6. Creatinine 1.13. He is continued on dexamethasone, Xarelto, vitamin supplements. The patient is seen today 06/28/2020 follow-up on the selective care unit. He is currently sitting up in bed. Remains on BiPAP 16/6 and 100% FiO2 maintaining O2 saturation the high 80s low 90s. He is 0.9 normal saline at 50 MLS per hour. He is now on Lovenox, dexamethasone, vitamin supplements. PICC line placed today. The patient is seen today 06/29/2020 follow-up on the selective care unit. He remains on BiPAP 16/6 and 100% FiO2 to maintain O2 saturations in the low 90s. He is afebrile. Currently being nourished with TPN via PICC line. 0.9 normal saline at 50 ML's per hour. Blood cultures reveal no growth. Sodium 140. Potassium 5.1. Creatinine 1.18. Glucose 125. He remains on dexamethasone, Lovenox, vitamin supplements. The patient is seen today 06/30/2020 follow-up on the selective care unit. He is currently resting fairly comfortably in bed. Remains on BiPAP 16/6 at 100% FiO2. He is being nourished with TPN and lipids via PICC line. 0.9 normal saline at 50 MLS per hour. He states he is still quite fatigued but improved today compared to yesterday. Cultures reveal no growth. D-dimer 10.2. Sodium 140. Potassium 5.2. Creatinine 0.99. LDH 1591. C-reactive protein 53.8. He remains on therapeutic Lovenox, dexamethasone, vitamin supplements. The patient is seen today 07/01/2020 in follow-up on the selective care unit. He is resting comfortably in bed. Continued on BiPAP 16/6 and 100% FiO2 to maintain O2 saturations in the high 80s low 90s. Chest x-ray continues to show scattered bilateral lung infiltrates which are stable compared to previous. Sodium 142. Potassium 4.8. Creatinine 0.95. Yesterday's d-dimer 10.23. Remains on therapeutic Lovenox at 100 mg subcu every 12 hours, Decadron, vitamin supplements. On today's evaluation of 07/02/2020 on seeing the patient for a follow-up. The patient remains on a BiPAP at a pressure of 16/6 cm of water and FiO2 of 80%. The patient is also receiving TPN for nutritional support. Therapeutic dose of Lovenox. His d-dimer was quite elevated at 10.2, normal renal function, normal electrolytes, CRP was elevated at 53 with an LDH level of 1591. Most recent chest x-ray from 07/01/2030 showing peripherally located infiltrates bilaterally. The patient is able to generate tidal volume of around 370 on the BiPAP machine. His extremities around 28. He is very weak. He cannot tolerate being off the BiPAP as the patient immediately desaturates even was taken pills or sips of water. He remains on TPN for nutritional support. His symptoms of his blood work today, he has white cell count of 9.8 with a hemoglobin of 12, sodium is 139 and a creatinine of 0.9. His current pulse ox on the percent on above-mentioned BiPAP setting with an FiO2 of 80%.Inflammatory markers are still elevated. D-dimer is at 5 and the patient also has an LDH level of 1009 with a CRP of 143.The chest x-ray from yesterday was showing worsening in the bilateral lower lobe pulmonary infiltrates especially in the right lower lobe. 07/03/2020 the patient remains on BiPAP at a pressure of 16/6 with an FiO2 of 80% and this is essentially the same setting as yesterday. His current vitals show a pulse ox of 94% on above-mentioned ventilator setting. He is afebrile. Breathing is nonlabored. He is still on TPN for nutritional support. His chest x-ray from 07/01/2020 showed peripheral pulmonary infiltrates consistent with Coumadin related pneumonia. No repeat x-rays since then. The patient remains considerably weak. His blood work from today showing no major electrolyte abnormalities. His LDH level was dropping yesterday down to 1009. He is still on Decadron 6 mg IV every 24 hours. He is also on Lovenox 45 mg subcu every 12 hours. On the BiPAP machine, degenerative tidal volumes around 400. 06/03/2020 this morning the patient is off the BiPAP and the patient is currently on a high flow oxygen 60 L with an FiO2 of 86%. The patient is also using 100% nonrebreather facemask. His current pulse ox is around 91%. He has developed skin breaks and ulceration from his BiPAP mask and is currently off the BiPAP. He is resting comfortably in bed. He is still on Lovenox 45 mg subcu every 12 hours. There is on steroids and the patient is receiving De cadron 6 mg IV every 24 hours. The patient is also on TPN for nutritional support. LDH level is at 893 which is lower than the CRP level is down to 50. He is quite weak and debilitated. His white cell count of 6.8 with a hemoglobin of 12.3. No fever. No other new complaints otherwise for now. Most recent d- dimer was at 5 from 07/02/2020. 07/05/2020, the patient remains on BiPAP. The patient was on high flow oxygen yesterday and desaturated and he decompensated and he was switched to a BiPAP at a pressure of 16/6 with an FiO2 of 80%. This occurred when the patient on was trying to have some breakfast earlier this morning. He was on high flow oxygen. He dropped his oxygen saturations significantly and he was very slow in recovery. At that point, he was switched to a BiPAP. His current pulse ox is 90%. He is quite lethargic and somnolent. He is unable to eat and he has TPN for nutritional support. He continues to be on Decadron 6 mg IV every 24 hours. He is also on Lovenox 45 mg subcutaneously every 12 hours. On his blood work, he had a d-dimer of 6.49 which is slightly higher than the white cell count is at 8.6 with a hemoglobin of 12.8. TPN is current to being administered for nutritional support. No other significant events , otherwise his night was uneventful.. The PICC line is in the left upper extremity. The patient also has a Kwan catheter in place. Each in relating a tidal volume of 550 and his respiratory rate is currently in the mid 30s. He seems to be quite comfortable. He is however lethargic. 07/06/2020, the patient is on a BiPAP at a pressure of 16/6 with an FiO2 of 100%. Pulse ox is currently at around 88%. He was having some oxygen desaturations and the patient was brought up to 100% on her BiPAP FiO2. The patient's subsequent reading in a pulse ox in the order of 91%. Remains on TPN for nutritional support. Remains on Decadron 6 mg IV every 24 hours. Remains on Lovenox 45 mg subcu every 12 hours. Blood work shows a d-dimer of 5.64. No electrolyte abnormalities. Condition is essentially unchanged and probably the same as yesterday. Still on Levemir insulin 10 units along with a sliding scale coverage. Blood sugars are adequate for now. He does have a PICC line in left upper extremity. He has a Kwan catheter in place. At around 10:00 this morning, the patient was trialed on the percent nonrebreather with a high flow oxygen at 60 L with an FiO2 of 90%. He desaturated to the low 60s and he was placed accordingly back on BiPAP. 07/07/2020 the patient is a same BiPAP setting which is 60/6 with an FiO2 of 95%. Earlier this morning she was trialed on high flow oxygen with 60 L and FiO2 of 90% and he decompensated and he became profoundly hypoxic and he had to be placed back on the BiPAP. His current pulse ox in the low 90s. He remains on IV Decadron 6 and the rescue 24 hours. He remains on Lovenox 45 mg subcu every 12 hours. Chest x-ray from today is showing stable bilateral interstitial pulmonary infiltrates with some worsening consolidation of the left lower lobe. Meanwhile, the patient is still receiving TPN for nutritional support. He is unable to take oral intake because of his extreme BiPAP dependence. D-dimer is at 4.06 and the patient is on Lovenox 45 mg subcu every 12 hours. He has also LDH level of 962, CRP level is at 8.3, electrolytes are all within normal limits. Unfortunately, he is still doing poorly and is not showing any signs of recovery. He remains on Levemir insulin 10 units daily along with a sliding- scale coverage. He has a Kwan catheter in place. Respiratory rate is in the mid 30s. He is quite lethargic. 2020, the patient continues to be on a BiPAP at a pressure of 16/6 with an FiO2 of 95%. Awake and alert. Slightly tachypneic. Pulse ox is 89% on the above-mentioned BiPAP setting. Minute ventilation as 40 L as we were seeing the patient and his minute ventilation with a. Otherwise his aspirate has been in the high 20s low 30 range. Whenever he sleeps, his respiratory rate goes down. He wants to stay on the BiPAP and he doesn't want to transition to the high flow oxygen today. Repeat chest x-ray was done and the findings are essentially stable with diffuse bilateral pulmonary infiltrates. No evidence of any pneumothorax. No interval progression or worsening his chest x-ray findings. Meanwhile, his blood work shows no major abnormalities. Blood sugars are not elevated. The patient remains on TPN for nutrition support and the patient remains on Decadron IV every 24 hours on Lovenox 45 mg subcu every 12 hours. D- dimer level is at 4.06. Patient was reevaluated today on 07/09/2020, remains on high flow oxygen using airvo and non-rebreather mask. Patient is on 94% FiO2 and 60 L flow per minute. Patient is about the same, not getting any better not getting any worse. He is noted to be slightly tachypneic. Has BiPAP at bedside, but not using it at present. Basic metabolic profile today is normal., Last LDH was trending down to 962 and C-reactive protein 8.3 Patient was reevaluated today on 07/10/2020, remains on high flow oxygen using Airvo and nonrebreather mask. O2 saturation remains marginal in the low 90s and high 80s patient denies being short of breath. He has intermittent cough. His d-dimer is 5.4 to today. Not significantly changed over the last 1 week. Basic metabolic profile is normal renal profile is normal. His last C-reactive protein was 8.3 and his LDH was 962 from 2 days ago. Chest x-ray from 07/08 continues to show persistent bilateral multifocal and comfortable in particular opacities consistent with COVID-19 infection. Patient was reevaluated today on 07/11/2020, remains on high flow oxygen, patient is on nonrebreather plus airvo 90% FiO2 and 60 L flow, O2 saturation remains marginal in the mid to high 80s. Patient in mild distress, but overall he thinks he is getting a bit better. Tried today to change position on the patient and see if his oxygenation improves, did not seem to make much of a difference, and the patient could not lay prone. He had even some difficulty laying on the right side. Remained generally weak, not making significant progress since admission. His CBC looks relatively normal his d-dimer is 5 renal profile is normal. Electrolytes are normal. Last chest x-ray from 2 days ago was consistent with COVID-19 pneumonia. On 07/12/2020 patient seen in follow-up on medical surgical floor, this morning his dyspnea and hypoxia have worsened, he is displaying decreasing oxygen saturations and increasing work of breathing. Patient has been on BiPAP support with pressures of 12 and 6 and 200%, and despite that patient is unable to maintain O2 saturations above 80-82%, he is quite tachypneic. Patient remains on multivitamins, steroids, and Lovenox 45 mg twice daily. He is status post Toci on 07/06/2020. He is receiving nutritional support in the form of TPN, his been unable to take in much by mouth related to his dyspnea, hypoxia, and dependence on high flow oxygen and BiPAP. Stat chest x-ray was obtained showing increasing confluence of airspace disease, and patient's steroids have been switched to Solu-Medrol 60 mg every 6 hours. Today's labs have been reviewed On 07/13/2020 patient seen in follow-up in the intensive care unit, he was trace to the ICU yesterday in view of worsening hypoxia and dyspnea, he is on BiPAP support pressures of 16/8 and FiO2 of 100%, and his pulse ox is 92%, he seems to be comfortable on those settings, breathing comfortably, appears to be in no respiratory distress. He does not tolerate being off the BiPAP and is very much dependent on BiPAP at this time, unable to take any oral meds or oral nutrition, PICC line was inserted in patient continues on TPN for nutritional support at a rate of 85 ML per hour, and lipids on the Thursday schedule, followed by registered dietitian. No other vasoactive drips, no other maintenance drips, hemodynamically he remains stable, he is in sinus mechanism, today's chest x-ray has been reviewed showing improvement in aeration, and patient is currently on IV steroids with Solu-Medrol 60 mg every 6 hours, and he remains on Lovenox 45 mg twice daily, all of his oral medications have been discontinued, and his Lopressor has been switched over to Lopressor IV 20 mg every 6 hours. No complaints of chest discomfort, no cough, lung sounds reveal diffuse crackles. He appears be fairly comfortable. Today's labs have been reviewed showing white blood cell count of 9.0, hemoglobin of 13.9, his d-dimer is improving and is down to 1.84, sodium is 135, the rest of the electrolytes were within normal limits, and BUN is up slightly, at 42, creatinine remains in the normal range of 0.71. LDH is 1492 uptrended a bit from previous value, and CRP is 0.8 Objective - Vital Signs Vital signs: Vital Signs Temp 96.9 F L 07/13/20 08:00 Pulse 55 L 07/13/20 11:00 Resp 16 07/13/20 11:00 BP 117/78 07/13/20 11:00 Pulse Ox 88 L 07/13/20 11:00 Intake & Output 07/12/20 07/13/20 07/13/20 18:59 06:59 18:59 Intake Total 611.5 2226 466 Output Total 650 765 380 Balance -38.5 1461 86 Intake: IV 400 466 Fat Emulsion 20% 250 ml 21 In Empty Bag 1 bag @ 21 mls/hr IV DAILY ROBERT Rx#: [id number] Mvi, Adult No.4 with Vit 340 425 K 10 ml Trace (Conc-1Ml/ Dose) 1 ml Sodium Acetate 50 meq Sodium Phosphate 9 mmol Calcium Gluconate 1 gm Magnesium Sulfate gm 1 gm In Amino Acid 5%- D15w 1,000 ml @ 85 mls/hr IV .BY DURATION ROBERT Rx#: [id number] Sodium Chloride 0.9% 1, 60 20 000 ml @ 20 mls/hr IV . Q24H ROBERT Rx#:[id number] Intake, IV Titration 611.5 1826 Amount Mvi, Adult No.4 with Vit 531.5 1051 K 10 ml Trace (Conc-1Ml/ Dose) 1 ml Sodium Acetate 50 meq Sodium Phosphate 9 mmol Calcium Gluconate 1 gm Magnesium Sulfate gm 1 gm In Amino Acid 5%- D15w 1,000 ml @ 85 mls/hr IV .BY DURATION ROBERT Rx#: [id number] Sodium Acetate 50 meq 595 Sodium Phosphate 9 mmol Calcium Gluconate 1 gm Magnesium Sulfate gm 1 gm In Amino Acid 5%-D15w 1, 000 ml @ 85 mls/hr IV .BY DURATION ROBERT Rx#: [id number] Sodium Chloride 0.9% 1, 80 180 000 ml @ 20 mls/hr IV . Q24H ROBERT Rx#:[id number] Output: Urine 650 765 380 Other: Voiding Method Indwelling Catheter Indwelling Catheter Indwelling Catheter - Exam GENERAL EXAM: Alert, very pleasant, 70-year-old white male, on BiPAP support, with current pressures 14/8 and FiO2 100% with a pulse ox of 88% tachypneic and short of breath with any exertion, does not tolerate BiPAP mask removal at all, and is very BiPAP dependent at this time HEAD: Normocephalic/atraumatic. EYES: Normal reaction of pupils, equal size. Conjunctiva pink, sclera white. NOSE: Clear with pink turbinates. THROAT: No erythema or exudates. NECK: No masses, no JVD, no thyroid enlargement, no adenopathy. CHEST: No chest wall deformity. Symmetrical expansion. LUNGS: Equal air entry with diminished breath sounds bilaterally, with bilateral base crackles CVS: Regular rate and rhythm, normal S1 and S2, no gallops, no murmurs, no rubs ABDOMEN: Soft, nontender. No hepatosplenomegaly, normal bowel sounds, no guarding or rigidity. EXTREMITIES: No clubbing, no edema, no cyanosis, 2+ pulses and upper and lower extremities. MUSCULOSKELETAL: Muscle strength and tone normal. SPINE: No scoliosis or deformity SKIN: No rashes CENTRAL NERVOUS SYSTEM: Alert and oriented -3. No focal deficits, tone is normal in all 4 extremities. PSYCHIATRIC: Alert and oriented -3. Appropriate affect. Intact judgment and insight. - Labs CBC & Chem 7: 07/13/20 04:49 07/13/20 04:49 Labs: Abnormal Lab Results - Last 24 Hours (Table) 07/13/20 07/13/20 07/13/20 Range/Units 00:17 04:49 04:49 Plt Count (150-450) k/uL Neutrophils # (1.3-7.7) k/uL Lymphocytes # (1.0-4.8) k/uL D-Dimer 1.84 H (<0.60) mg/L FEU Sodium 135 L (137-145) mmol/L BUN 42 H (9-20) mg/dL Glucose 176 H (74-99) mg/dL POC Glucose (mg/dL) 205 H (75-99) mg/dL Phosphorus 4.6 H (2.5-4.5) mg/dL ALT 119 H (4-49) U/L Alkaline Phosphatase 136 H (38-126) U/L Lactate Dehydrogenase 1492 H (313-618) U/L Total Protein 5.8 L (6.3-8.2) g/dL Albumin 2.8 L (3.5-5.0) g/dL 07/13/20 07/13/20 07/13/20 Range/Units 04:49 06:19 12:04 Plt Count 111 L (150-450) k/uL Neutrophils # 7.9 H (1.3-7.7) k/uL Lymphocytes # 0.5 L (1.0-4.8) k/uL D-Dimer (<0.60) mg/L FEU Sodium (137-145) mmol/L BUN (9-20) mg/dL Glucose (74-99) mg/dL POC Glucose (mg/dL) 183 H 332 H (75-99) mg/dL Phosphorus (2.5-4.5) mg/dL ALT (4-49) U/L Alkaline Phosphatase (38-126) U/L Lactate Dehydrogenase (313-618) U/L Total Protein (6.3-8.2) g/dL Albumin (3.5-5.0) g/dL 07/13/20 Range/Units 12:05 Plt Count (150-450) k/uL Neutrophils # (1.3-7.7) k/uL Lymphocytes # (1.0-4.8) k/uL D-Dimer (<0.60) mg/L FEU Sodium (137-145) mmol/L BUN (9-20) mg/dL Glucose (74-99) mg/dL POC Glucose (mg/dL) 308 H (75-99) mg/dL Phosphorus (2.5-4.5) mg/dL ALT (4-49) U/L Alkaline Phosphatase (38-126) U/L Lactate Dehydrogenase (313-618) U/L Total Protein (6.3-8.2) g/dL Albumin (3.5-5.0) g/dL Assessment and Plan Plan: Assessment: #1. Acute hypoxemic respiratory failure secondary to COVID-19 pneumonia. Outside the window for Remdesivir, that is post Toci 800 mg on 07/06/2020 for worsening hypoxic respiratory failure, patient remains very much BiPAP dependent and has not tolerated transitioning to high flow oxygen very well, he required transfer to the intensive care unit today on 07/12/2020 and current BiPAP settings of 14/8 and FiO2 of 100% #2. Increased inflammatory markers related to the above, improving #3. Increased d-dimer, lower extremity Dopplers showed no evidence of DVT, patient remains on Lovenox 45 mg twice daily and a d-dimer is improving #4. History of atrial fibrillation, paroxysmal and patient is not on any chronic anticoagulation #5. Coronary artery disease with previous stent placement #6. GERD/reflux #7. Hypertension #8. Hyperlipidemia #9. History of rheumatic fever #10. History of gout #11. Acute kidney injury recovered #12. Decreased oral intake and inability to sustain oral intake related to BiPAP device, and dependence on noninvasive ventilatory support, patient is currently on TPN for nutritional support Plan: Continue BiPAP support at pressures of 16/8 and FiO2 of 100% Continue Solu-Medrol 60 mg every 6 hours Decrease Lovenox to 40 mg daily, d-dimer is improving May use morphine for breathlessness and discomfort, small dose Ativan if needed, and Precedex if those are ineffective for anxiety Continue TPN for nutritional support Discontinue oral medications, and is unable to come to BiPAP mask to take oral medications or eat Switch Lopressor to IV Lopressor in half milligrams every 6 hours Continue close monitoring in the intensive care unit and there is a possibility patient's condition may further decline and he may need intubation and placement on mechanical ventilator For now continue BiPAP support Overall prognosis is guarded I performed a history & physical examination of the patient and discussed their management with my nurse practitioner, Constance El. I reviewed the nurse practitioner's note and agree with the documented findings and plan of care. Lung sounds are positive for bibasilar crackles. The findings and the impression was discussed with the patient. I attest to the documentation by the nurse practitioner. Time with Patient: Greater than 30
[2020-07-13] MEDS ORDERED: LIDOCAINE 1% INJ 10MG/ML (20 ML MDV) SQ ONE (13:09)
--- NOTE | 2020-07-13 13:43 | XR ---
EXAMINATION TYPE: XR chest 1V confirm line [facility] DATE OF EXAM: 07/13/2020 HISTORY: Shortness of breath. COMPARISON: 07/13/2020 TECHNIQUE: Single view of the chest is submitted. FINDINGS: Demonstrated are scattered senescent parenchymal change. Patchy infiltrates throughout both lung robison compatible with Covid 19 pneumonia. PICC line demonstr ates its distal tip overlying the SVC. No evidence for pneumothorax. The heart is stable. Hilar and mediastinal structures are within normal limits. Degenerative changes are seen of the dorsal spine. IMPRESSION: 1. Appropriate PICC line placement.
--- NOTE | 2020-07-13 14:29 | IR ---
PICC line replacement HISTORY: Needs long-term intravenous access for total parenteral nutrition, indwelling single lumen P ICC line Following informed consent the skin around the catheter was prepped as was the catheter. Patient was draped. Lidocaine used for local anesthesia. Catheter was withdrawn. Wire was used to exchange the in dwelling catheter for a peel-away sheath. Catheter was tailored to appropriate length and advanced santos ch that the distal tip is at the cavoatrial junction, spot image obtained verifying placement with th e tip at the cavoatrial junction. Catheter was fixed to the skin. Hemostasis achieved. Catheter was a spirated and flushed with sterile saline. No immediate complication. IMPRESSION: Status post PICC line exchange. This procedure performed by the undersigned.
[2020-07-13] MEDS: SODIUM CHLORIDE 0.9% 1,000 ML IV SCH (16:14)
--- NOTE | 2020-07-13 16:36 | PN ---
PROGRESS NOTE DATE OF SERVICE: 07/13/2020. I am covering for Dr. Encarnacion. HISTORY OF PRESENT ILLNESS: This 70-year-old gentleman with a past medical history of multiple medical problems admitted with acute COVID-19 bilateral interstitial pneumonia. The patient was transferred to ICU because of severe hypoxic respiratory failure. Dr. Rodriguez is following the patient closely in the ICU. The patient is on bronchodilators and multiple medications including . Repeat chest x-ray reviewed personally by me today showed significant bilateral interstitial infiltrates. PAST MEDICAL HISTORY: Reviewed. REVIEW OF SYSTEMS: Could not be taken, the patient is on BiPAP. CURRENT MEDICATIONS: Current medications are reviewed and include Ventolin, Lovenox, Pepcid, TPN, magnesium, Narcan. PHYSICAL EXAMINATION: Patient is conscious. Pulse 70, blood pressure 146/78, respiration 20, temperature 97.2, pulse ox 90% on BiPAP. HEENT: Conjunctivae normal. NECK: No jugular venous distention. CARDIOVASCULAR: S1, S2 muffled. RESPIRATORY: Breath sounds diminished at the bases. Bilateral scattered rhonchi and crackles. ABDOMEN: Soft, nontender. LEGS: No edema, no swelling. NERVOUS SYSTEM: No focal deficits. LABS: WBC 9, hemoglobin 13.9, platelets are 111. D-dimer is 1.84. Other labs are noted. ASSESSMENT: 1. Acute COVID-19 bilateral interstitial pneumonia with acute hypoxic respiratory failure with sepsis, present on admission. 2. Acute delirium with acute metabolic encephalopathy. 3. Acute hypoxic encephalopathy. 4. Acute renal failure. 5. Hyperglycemia. 6. Gastroesophageal reflux disease. 7. Chronic paroxysmal atrial fibrillation. 8. Chronic systolic congestive heart failure with ejection fraction 35% to 40%. 9. Coronary artery disease. 10.History of nicotine dependence. 11.Hypertension. 12.TPN and PICC line. 13.Hyponatremia. 14.Elevated D-dimer. 15.Thrombocytopenia. 16.Leukopenia. 17.Mild to moderate protein calorie malnutrition. 18.FULL CODE. RECOMMENDATIONS AND DISCUSSION: Recommend to continue current medications, continue monitoring and symptomatic treatment. Otherwise at this time I recommend continue with current medications. Monitor closely. Continue the bronchodilators. Continue with TPN. Monitor electrolytes closely. Continue with IV steroids. Continue with Lovenox. Guarded prognosis because of multiple complex medical issues and further recommendations to follow. MMODL / IJN: [id number] / IKER
[2020-07-13 17:16] LABS: Glucose,Whole Blood 108 mg/dL (75-99)
[2020-07-13 23:59] LABS: Glucose,Whole Blood 221 mg/dL (75-99)
[2020-07-14] MEDS: INSULIN ASPART (NovoLOG) 100 UNIT/ML VIAL SQ SCH ×4 (00:05→18:34)
[2020-07-14] MEDS: methylPREDNISolone SOD SUCCI 125 MG/2 ML VIAL IV SCH ×4 (00:07→18:34)
[2020-07-14] MEDS: MORPHINE SULFATE 2 MG/ML SYRINGE IVP PRN ×2 (00:08→06:34)
[2020-07-14] MEDS: METOPROLOL TARTRATE 5 MG/5 ML VIAL IVP SCH ×4 (00:08→18:34)
[2020-07-14 05:43] LABS: C Reactive Protein 0.7 mg/dL (<1.0); Magnesium 2.4 mg/dL (1.6-2.3); Phosphorus 4.2 mg/dL (2.5-4.5)
[2020-07-14 05:48] LABS: Glucose,Whole Blood 176 mg/dL (75-99)
[2020-07-14] MEDS: ALBUTEROL HFA INHALER INHALATION PRN ×4 (07:14→20:34)
--- NOTE | 2020-07-14 07:16 | XR ---
EXAMINATION TYPE: XR chest 1V portable DATE OF EXAM: 07/14/2020 COMPARISON: Chest x-ray 07/13/2020 HISTORY: Covid pneumonia TECHNIQUE: Single frontal view of the chest is obtained. FINDINGS: Mixed interstitial and airspace disease within the lungs is similar to prior exam. There i s no evident pneumothorax or sizable effusion. Cardiac mediastinal silhouette shows a similar appeara nce. Left-sided PICC line shows the distal tip near the cavoatrial junction in appropriate position. IMPRESSION: Findings are similar to prior exam. Correlate for pneumonia, edema
[2020-07-14] MEDS ORDERED: ENOXAPARIN 60 MG/0.6 ML SYRINGE SQ SCH (09:00)
[2020-07-14] MEDS: FAT EMULSION 20% 250 ML in EMPTY BAG 1 BAG IV SCH (09:13)
[2020-07-14] MEDS: FAMOTIDINE 20 MG/2 ML VIAL IV SCH (09:13)
[2020-07-14] MEDS: SODIUM ACETATE IV SCH ×14 (09:32→22:24)
[2020-07-14] MEDS: [UNRECOGNIZED DRUG - OTHER] IV SCH ×14 (09:32→22:24)
[2020-07-14] MEDS: CALCIUM GLUCONATE IV SCH ×14 (09:32→22:24)
[2020-07-14] MEDS: MAGNESIUM SULFATE IV SCH ×14 (09:32→22:24)
[2020-07-14] MEDS: INSULIN DETEMIR (LEVEMIR) 100 UNIT/ML SYR SQ SCH (09:36)
--- NOTE | 2020-07-14 10:32 | P.PN ---
Subjective Progress Note Date: 07/14/20 Principal diagnosis: Acute hypoxic respiratory failure secondary to COVID-19 pneumonia This is a 70-year-old gentleman that was seen in the emergency room on June 21. He was sent into the emergency room after being seen by his primary care doctor because of increasing shortness of breath, and concerns that the patient might have COVID 19. In addition to shortness of breath, the patient states he's been having lots of chest congestion, and is been coughing. When he coughs, it is painful in his chest. He has been sick for at least 2 weeks. In addition, he has muscle aches and joint aches, weakness and fatigue, and fever and chills. Currently, he is on a nonrebreather mask. Saturations are 92%. His primary care physician Dr. Vijay Encarnacion. He was not receiving any IV fluids. His primary medical problems include atrial fibrillation, coronary artery disease, hype rlipidemia, hypertension, gastroesophageal reflux disease, and prior myocardial infarction. The patient is a lifelong nontobacco user. White count is 4.9, hemoglobin 13.5, hematocrit 39.5, platelet count 92,000. PTT 61.3. D-dimer 2.41. Sodium 132, potassium 4.8, chloride 105, CO2 18, anion gap 9, BUN and creatinine 52 and 2.05. Calcium 7.6, AST 156, pO2 102, LDH 2018. C-reactive protein 158. I was not able to look at the chest x-ray. There is apparently a partially occlusive opacity at the right lung base consistent with acute pneumonic process. CT angiogram was not performed. Patient was reevaluated today on 06/23/2020, patient is feeling better today compared to how he felt yesterday. Patient is on high flow cannula running at 15 L/m, his O2 saturation is in the mid to high 80s he is on 100% FiO2 basically. His chest x-ray does not seem to be impressive, he does have consoli dative opacity in the right lung base consistent with acute pneumonic process. Left lung is relatively clear. No significant pulmonary congestion. D-dimer is 2.56. Renal profile is not good enough for performing a CT angiogram of the chest, however I will recommend bilateral venous Doppler on this patient just to make sure we were not dealing with thromboembolic process. Again the patient tells me that his feeling better today compared to how he felt yesterday. Clinically improving. Patient was reevaluated today on 06/24/2020, patient remains on high flow oxygen. He is on 15 L high flow cannula, and his O2 saturations 92% at best. Patient continues to have shortness of breath, intermittent episodes of cough. He has no fever, his vital signs are relatively stable. During my evaluation, patient was constantly coughing. CBC is relatively normal electrolytes are normal BUN is 52 creatinine 1.45. LDH is elevated at 1586. Venous Doppler yesterday was negative. Chest x-ray on admission showed consolidation at the right lung base. I also suspect some consolidation at the left base/retrocardiac area. Progress note dated 06/25/2020. Currently, the patient was on BiPAP and on percent. Earlier today, he desaturated, and the nurses had a hard time getting his saturations back up. We did do a blood gas on the patient. PO2 was 63, pCO2 was 33, pH was 7.44. That was on 100% on the BiPAP. White count 14.8, hemoglobin hematocrit and platelet count all normal. Sodium 136, potassium 4.9, chlorides 107, CO2 20, anion gap 9, BUN 45, creatinine 1.28. Chest x-ray today showed diffuse bilateral patchy infiltrates which are stable. Yesterday, he was on high flow nasal O2 at 15 L/m. Progress note dated 06/26/2020. 70-year-old male, currently on BiPAP, at 16/6 and 80%. His saturations were good, so the FiO2 was dropped from 80% down to 60%. The patient appears to be d oing reasonably well, although he did become somewhat tachypnea today when he was being evaluated here. Saturations are 90% on the 60% FiO2. Temperature is 98.1, and blood pressure 173/104. White count 14.9, and hemoglobin, hematocrit, and platelet count are all normal. Sodium 135, potassium 5.2, chlorides 106, CO2 18, anion gap 11, BUN 38, creatinine 1.23. Chest x-ray from June 25, shows bilateral patchy infiltrates. The patient is seen today 06/27/2020 in follow-up on the regular medical floor. He is currently resting fairly comfortably in bed. He is maintaining O2 saturation in the 90s on BiPAP 16/6 and 60% FiO2. 0.9 normal saline at 50 MLS per hour. Chest x-ray continues to show patchy bilateral infiltrates compatible with superimposed interstitial pneumonia. White count 8.3. Hemoglobin 13.4. Sodium 139. Potassium 5.6. Creatinine 1.13. He is continued on dexamethasone, Xarelto, vitamin supplements. The patient is seen today 06/28/2020 follow-up on the selective care unit. He is currently sitting up in bed. Remains on BiPAP 16/6 and 100% FiO2 maintaining O2 saturation the high 80s low 90s. He is 0.9 normal saline at 50 MLS per hour. He is now on Lovenox, dexamethasone, vitamin supplements. PICC line placed today. The patient is seen today 06/29/2020 follow-up on the selective care unit. He remains on BiPAP 16/6 and 100% FiO2 to maintain O2 saturations in the low 90s. He is afebrile. Currently being nourished with TPN via PICC line. 0.9 normal saline at 50 ML's per hour. Blood cultures reveal no growth. Sodium 140. Potassium 5.1. Creatinine 1.18. Glucose 125. He remains on dexamethasone, Lovenox, vitamin supplements. The patient is seen today 06/30/2020 follow-up on the selective care unit. He is currently resting fairly comfortably in bed. Remains on BiPAP 16/6 at 100% FiO2. He is being nourished with TPN and lipids via PICC line. 0.9 normal saline at 50 MLS per hour. He states he is still quite fatigued but improved today compared to yesterday. Cultures reveal no growth. D-dimer 10.2. Sodium 140. Potassium 5.2. Creatinine 0.99. LDH 1591. C-reactive protein 53.8. He remains on therapeutic Lovenox, dexamethasone, vitamin supplements. The patient is seen today 07/01/2020 in follow-up on the selective care unit. He is resting comfortably in bed. Continued on BiPAP 16/6 and 100% FiO2 to maintain O2 saturations in the high 80s low 90s. Chest x-ray continues to show scattered bilateral lung infiltrates which are stable compared to previous. Sodium 142. Potassium 4.8. Creatinine 0.95. Yesterday's d-dimer 10.23. Remains on therapeutic Lovenox at 100 mg subcu every 12 hours, Decadron, vitamin supplements. On today's evaluation of 07/02/2020 on seeing the patient for a follow-up. The patient remains on a BiPAP at a pressure of 16/6 cm of water and FiO2 of 80%. The patient is also receiving TPN for nutritional support. Therapeutic dose of Lovenox. His d-dimer was quite elevated at 10.2, normal renal function, normal electrolytes, CRP was elevated at 53 with an LDH level of 1591. Most recent chest x-ray from 07/01/2030 showing peripherally located infiltrates bilaterally. The patient is able to generate tidal volume of around 370 on the BiPAP machine. His extremities around 28. He is very weak. He cannot tolerate being off the BiPAP as the patient immediately desaturates even was taken pills or sips of water. He remains on TPN for nutritional support. His symptoms of his blood work today, he has white cell count of 9.8 with a hemoglobin of 12, sodium is 139 and a creatinine of 0.9. His current pulse ox on the percent on above-mentioned BiPAP setting with an FiO2 of 80%.Inflammatory markers are still elevated. D-dimer is at 5 and the patient also has an LDH level of 1009 with a CRP of 143.The chest x-ray from yesterday was showing worsening in the bilateral lower lobe pulmonary infiltrates especially in the right lower lobe. 07/03/2020 the patient remains on BiPAP at a pressure of 16/6 with an FiO2 of 80% and this is essentially the same setting as yesterday. His current vitals show a pulse ox of 94% on above-mentioned ventilator setting. He is afebrile. Breathing is nonlabored. He is still on TPN for nutritional support. His chest x-ray from 07/01/2020 showed peripheral pulmonary infiltrates consistent with Coumadin related pneumonia. No repeat x-rays since then. The patient remains considerably weak. His blood work from today showing no major electrolyte abnormalities. His LDH level was dropping yesterday down to 1009. He is still on Decadron 6 mg IV every 24 hours. He is also on Lovenox 45 mg subcu every 12 hours. On the BiPAP machine, degenerative tidal volumes around 400. 06/03/2020 this morning the patient is off the BiPAP and the patient is currently on a high flow oxygen 60 L with an FiO2 of 86%. The patient is also using 100% nonrebreather facemask. His current pulse ox is around 91%. He has developed skin breaks and ulceration from his BiPAP mask and is currently off the BiPAP. He is resting comfortably in bed. He is still on Lovenox 45 mg subcu every 12 hours. There is on steroids and the patient is receiving De cadron 6 mg IV every 24 hours. The patient is also on TPN for nutritional support. LDH level is at 893 which is lower than the CRP level is down to 50. He is quite weak and debilitated. His white cell count of 6.8 with a hemoglobin of 12.3. No fever. No other new complaints otherwise for now. Most recent d- dimer was at 5 from 07/02/2020. 07/05/2020, the patient remains on BiPAP. The patient was on high flow oxygen yesterday and desaturated and he decompensated and he was switched to a BiPAP at a pressure of 16/6 with an FiO2 of 80%. This occurred when the patient on was trying to have some breakfast earlier this morning. He was on high flow oxygen. He dropped his oxygen saturations significantly and he was very slow in recovery. At that point, he was switched to a BiPAP. His current pulse ox is 90%. He is quite lethargic and somnolent. He is unable to eat and he has TPN for nutritional support. He continues to be on Decadron 6 mg IV every 24 hours. He is also on Lovenox 45 mg subcutaneously every 12 hours. On his blood work, he had a d-dimer of 6.49 which is slightly higher than the white cell count is at 8.6 with a hemoglobin of 12.8. TPN is current to being administered for nutritional support. No other significant events , otherwise his night was uneventful.. The PICC line is in the left upper extremity. The patient also has a Kwan catheter in place. Each in relating a tidal volume of 550 and his respiratory rate is currently in the mid 30s. He seems to be quite comfortable. He is however lethargic. 07/06/2020, the patient is on a BiPAP at a pressure of 16/6 with an FiO2 of 100%. Pulse ox is currently at around 88%. He was having some oxygen desaturations and the patient was brought up to 100% on her BiPAP FiO2. The patient's subsequent reading in a pulse ox in the order of 91%. Remains on TPN for nutritional support. Remains on Decadron 6 mg IV every 24 hours. Remains on Lovenox 45 mg subcu every 12 hours. Blood work shows a d-dimer of 5.64. No electrolyte abnormalities. Condition is essentially unchanged and probably the same as yesterday. Still on Levemir insulin 10 units along with a sliding scale coverage. Blood sugars are adequate for now. He does have a PICC line in left upper extremity. He has a Kwan catheter in place. At around 10:00 this morning, the patient was trialed on the percent nonrebreather with a high flow oxygen at 60 L with an FiO2 of 90%. He desaturated to the low 60s and he was placed accordingly back on BiPAP. 07/07/2020 the patient is a same BiPAP setting which is 60/6 with an FiO2 of 95%. Earlier this morning she was trialed on high flow oxygen with 60 L and FiO2 of 90% and he decompensated and he became profoundly hypoxic and he had to be placed back on the BiPAP. His current pulse ox in the low 90s. He remains on IV Decadron 6 and the rescue 24 hours. He remains on Lovenox 45 mg subcu every 12 hours. Chest x-ray from today is showing stable bilateral interstitial pulmonary infiltrates with some worsening consolidation of the left lower lobe. Meanwhile, the patient is still receiving TPN for nutritional support. He is unable to take oral intake because of his extreme BiPAP dependence. D-dimer is at 4.06 and the patient is on Lovenox 45 mg subcu every 12 hours. He has also LDH level of 962, CRP level is at 8.3, electrolytes are all within normal limits. Unfortunately, he is still doing poorly and is not showing any signs of recovery. He remains on Levemir insulin 10 units daily along with a sliding- scale coverage. He has a Kwan catheter in place. Respiratory rate is in the mid 30s. He is quite lethargic. 2020, the patient continues to be on a BiPAP at a pressure of 16/6 with an FiO2 of 95%. Awake and alert. Slightly tachypneic. Pulse ox is 89% on the above-mentioned BiPAP setting. Minute ventilation as 40 L as we were seeing the patient and his minute ventilation with a. Otherwise his aspirate has been in the high 20s low 30 range. Whenever he sleeps, his respiratory rate goes down. He wants to stay on the BiPAP and he doesn't want to transition to the high flow oxygen today. Repeat chest x-ray was done and the findings are essentially stable with diffuse bilateral pulmonary infiltrates. No evidence of any pneumothorax. No interval progression or worsening his chest x-ray findings. Meanwhile, his blood work shows no major abnormalities. Blood sugars are not elevated. The patient remains on TPN for nutrition support and the patient remains on Decadron IV every 24 hours on Lovenox 45 mg subcu every 12 hours. D- dimer level is at 4.06. Patient was reevaluated today on 07/09/2020, remains on high flow oxygen using airvo and non-rebreather mask. Patient is on 94% FiO2 and 60 L flow per minute. Patient is about the same, not getting any better not getting any worse. He is noted to be slightly tachypneic. Has BiPAP at bedside, but not using it at present. Basic metabolic profile today is normal., Last LDH was trending down to 962 and C-reactive protein 8.3 Patient was reevaluated today on 07/10/2020, remains on high flow oxygen using Airvo and nonrebreather mask. O2 saturation remains marginal in the low 90s and high 80s patient denies being short of breath. He has intermittent cough. His d-dimer is 5.4 to today. Not significantly changed over the last 1 week. Basic metabolic profile is normal renal profile is normal. His last C-reactive protein was 8.3 and his LDH was 962 from 2 days ago. Chest x-ray from 07/08 continues to show persistent bilateral multifocal and comfortable in particular opacities consistent with COVID-19 infection. Patient was reevaluated today on 07/11/2020, remains on high flow oxygen, patient is on nonrebreather plus airvo 90% FiO2 and 60 L flow, O2 saturation remains marginal in the mid to high 80s. Patient in mild distress, but overall he thinks he is getting a bit better. Tried today to change position on the patient and see if his oxygenation improves, did not seem to make much of a difference, and the patient could not lay prone. He had even some difficulty laying on the right side. Remained generally weak, not making significant progress since admission. His CBC looks relatively normal his d-dimer is 5 renal profile is normal. Electrolytes are normal. Last chest x-ray from 2 days ago was consistent with COVID-19 pneumonia. On 07/12/2020 patient seen in follow-up on medical surgical floor, this morning his dyspnea and hypoxia have worsened, he is displaying decreasing oxygen saturations and increasing work of breathing. Patient has been on BiPAP support with pressures of 12 and 6 and 200%, and despite that patient is unable to maintain O2 saturations above 80-82%, he is quite tachypneic. Patient remains on multivitamins, steroids, and Lovenox 45 mg twice daily. He is status post Toci on 07/06/2020. He is receiving nutritional support in the form of TPN, his been unable to take in much by mouth related to his dyspnea, hypoxia, and dependence on high flow oxygen and BiPAP. Stat chest x-ray was obtained showing increasing confluence of airspace disease, and patient's steroids have been switched to Solu-Medrol 60 mg every 6 hours. Today's labs have been reviewed On 07/13/2020 patient seen in follow-up in the intensive care unit, he was trace to the ICU yesterday in view of worsening hypoxia and dyspnea, he is on BiPAP support pressures of 16/8 and FiO2 of 100%, and his pulse ox is 92%, he seems to be comfortable on those settings, breathing comfortably, appears to be in no respiratory distress. He does not tolerate being off the BiPAP and is very much dependent on BiPAP at this time, unable to take any oral meds or oral nutrition, PICC line was inserted in patient continues on TPN for nutritional support at a rate of 85 ML per hour, and lipids on the Thursday schedule, followed by registered dietitian. No other vasoactive drips, no other maintenance drips, hemodynamically he remains stable, he is in sinus mechanism, today's chest x-ray has been reviewed showing improvement in aeration, and patient is currently on IV steroids with Solu-Medrol 60 mg every 6 hours, and he remains on Lovenox 45 mg twice daily, all of his oral medications have been discontinued, and his Lopressor has been switched over to Lopressor IV 20 mg every 6 hours. No complaints of chest discomfort, no cough, lung sounds reveal diffuse crackles. He appears be fairly comfortable. Today's labs have been reviewed showing white blood cell count of 9.0, hemoglobin of 13.9, his d-dimer is improving and is down to 1.84, sodium is 135, the rest of the electrolytes were within normal limits, and BUN is up slightly, at 42, creatinine remains in the normal range of 0.71. LDH is 1492 uptrended a bit from previous value, and CRP is 0.8 On 07/14/2020 patient is seen in follow-up in intensive care unit, she remained BiPAP dependent at this time, BiPAP pressures of 16/8, and FiO2 100%, however he tolerates BiPAP support quite well, no agitation, no attempts to remove the mass, he is quite compliant, pulse ox on those settings is ranging from 93-96%, hemodynamically he is stable, has not had any vasopressor support, he is in sinus mechanism with a rate of 67, he is on 0.9 normal saline at a rate of 29 per hour, TPN is infusing at 85 MLS per hour, patient has not been able to come off the BiPAP support long enough to sustain his oral nutrition. He feels thirsty, and his been coming off the BiPAP mask only for oral care and sips of water. He is awake, he is alert oriented 3, denies acute distress, today's chest x-ray shows mixed interstitial and airspace disease within the lungs similar to the prior exam, no major change. Today's labs have been reviewed, doing a d-dimer slightly trending down, down to 1.25, LDH is 1305, down from yesterday, his CRP is normal at 0.7. Blood cultures have shown no growth. He remains on prophylactic dose Lovenox 40 mg daily, remains on Solu-Medrol 60 mg every 6 hours, he is on morphine as needed 2-4 mg every 4 hours for breathlessness and anxiety, and that has been helping him cope with the BiPAP support. No chest discomfort, no nausea vomiting or diarrhea no abdominal pain. Objective - Vital Signs Vital signs: Vital Signs Temp 98.6 F 07/14/20 00:00 Pulse 50 L 07/14/20 10:00 Resp 12 07/14/20 10:00 BP 126/71 07/14/20 10:00 Pulse Ox 94 L 07/14/20 10:00 Intake & Output 07/13/20 07/14/20 07/14/20 18:59 06:59 18:59 Intake Total 1308 2272 441 Output Total 840 900 210 Balance 468 1372 231 Weight 94 kg Intake: IV 1308 1219 441 Fat Emulsion 20% 250 ml 168 184 21 In Empty Bag 1 bag @ 21 mls/hr IV DAILY [facility] Rx#: [id number] Mvi, Adult No.4 with Vit 340 K 10 ml Trace (Conc-1Ml/ Dose) 1 ml Sodium Acetate 50 meq Calcium Gluconate 1 gm Magnesium Sulfate gm 1 gm Sodium Chloride 4Meq/ml Vial 20 meq In Amino Acid 5%-D15w 1,000 ml @ 85 mls/hr IV .BY DURATION [facility] Rx#: [id number] Mvi, Adult No.4 with Vit 1020 935 K 10 ml Trace (Conc-1Ml/ Dose) 1 ml Sodium Acetate 50 meq Sodium Phosphate 9 mmol Calcium Gluconate 1 gm Magnesium Sulfate gm 1 gm In Amino Acid 5%- D15w 1,000 ml @ 85 mls/hr IV .BY DURATION [facility] Rx#: [id number] Sodium Chloride 0.9% 1, 120 100 80 000 ml @ 20 mls/hr IV . Q24H [facility] Rx#:[id number] Intake, IV Titration 1053 Amount Mvi, Adult No.4 with Vit 1053 K 10 ml Trace (Conc-1Ml/ Dose) 1 ml Sodium Acetate 50 meq Calcium Gluconate 1 gm Magnesium Sulfate gm 1 gm Sodium Chloride 4Meq/ml Vial 20 meq In Amino Acid 5%-D15w 1,000 ml @ 85 mls/hr IV .BY DURATION [facility] Rx#: [id number] Output: Urine 840 900 210 Other: Voiding Method Indwelling Catheter Indwelling Catheter - Exam GENERAL EXAM: Alert, very pleasant, 70-year-old white male, on BiPAP support, with current pressures 14/8 and FiO2 100% with a pulse ox of 93% tachypneic and short of breath with any exertion, does not tolerate BiPAP mask removal at all, and is very BiPAP dependent at this time HEAD: Normocephalic/atraumatic. EYES: Normal reaction of pupils, equal size. Conjunctiva pink, sclera white. NOSE: Clear with pink turbinates. THROAT: No erythema or exudates. NECK: No masses, no JVD, no thyroid enlargement, no adenopathy. CHEST: No chest wall deformity. Symmetrical expansion. LUNGS: Equal air entry with diminished breath sounds bilaterally, with bilateral base crackles CVS: Regular rate and rhythm, normal S1 and S2, no gallops, no murmurs, no rubs ABDOMEN: Soft, nontender. No hepatosplenomegaly, normal bowel sounds, no guarding or rigidity. EXTREMITIES: No clubbing, no edema, no cyanosis, 2+ pulses and upper and lower extremities. MUSCULOSKELETAL: Muscle strength and tone normal. SPINE: No scoliosis or deformity SKIN: No rashes CENTRAL NERVOUS SYSTEM: Alert and oriented -3. No focal deficits, tone is normal in all 4 extremities. PSYCHIATRIC: Alert and oriented -3. Appropriate affect. Intact judgment and insight. - Labs CBC & Chem 7: 07/13/20 04:49 07/13/20 04:49 Labs: Abnormal Lab Results - Last 24 Hours (Table) 07/13/20 07/13/20 07/13/20 Range/Units 12:04 12:05 17:13 D-Dimer (<0.60) mg/L FEU POC Glucose (mg/dL) 332 H 308 H 108 H (75-99) mg/dL Magnesium (1.6-2.3) mg/dL Lactate Dehydrogenase (313-618) U/L 07/13/20 07/14/20 07/14/20 Range/Units 23:57 04:29 04:29 D-Dimer 1.25 H (<0.60) mg/L FEU POC Glucose (mg/dL) 221 H (75-99) mg/dL Magnesium 2.4 H (1.6-2.3) mg/dL Lactate Dehydrogenase 1305 H (313-618) U/L 07/14/20 Range/Units 05:46 D-Dimer (<0.60) mg/L FEU POC Glucose (mg/dL) 176 H (75-99) mg/dL Magnesium (1.6-2.3) mg/dL Lactate Dehydrogenase (313-618) U/L Assessment and Plan Plan: Assessment: #1. Acute hypoxemic respiratory failure secondary to COVID-19 pneumonia. Outside the window for Remdesivir, that is post Toci 800 mg on 07/06/2020 for worsening hypoxic respiratory failure, patient remains very much BiPAP dependent and has not tolerated transitioning to high flow oxygen very well, he required transfer to the intensive care unit today on 07/12/2020 and current BiPAP settings of 14/8 and FiO2 of 100% #2. Increased inflammatory markers related to the above, improving #3. Increased d-dimer, lower extremity Dopplers showed no evidence of DVT, patient remains on Lovenox 45 mg twice daily and a d-dimer is improving #4. History of atrial fibrillation, paroxysmal and patient is not on any chronic anticoagulation #5. Coronary artery disease with previous stent placement #6. GERD/reflux #7. Hypertension #8. Hyperlipidemia #9. History of rheumatic fever #10. History of gout #11. Acute kidney injury recovered #12. Decreased oral intake and inability to sustain oral intake related to BiPAP device, and dependence on noninvasive ventilatory support, patient is currently on TPN for nutritional support Plan: Continue BiPAP support at pressures of 16/8 and FiO2 of 100% May dropped FiO2 down by 5 or 10 to keep his O2 saturations at or above 90% Continue Solu-Medrol 60 mg every 6 hours Decrease Lovenox to 40 mg daily, d-dimer is improving May use morphine for breathlessness and discomfort, small dose Ativan if needed, and Precedex if those are ineffective for anxiety Continue TPN for nutritional support Chest x-ray shows findings similar to prior exam, no major change Overall clinically appears to be slightly better, slightly improved O2 saturations Continue close monitoring in the intensive care unit Overall prognosis is guarded I performed a history & physical examination of the patient and discussed their management with my nurse practitioner, Constance El. I reviewed the nurse practitioner's note and agree with the documented findings and plan of care. Lung sounds are positive for bibasilar crackles. The findings and the impression was discussed with the patient. I attest to the documentation by the nurse practitioner. Time with Patient: Greater than 30
[2020-07-14 11:45] LABS: Glucose,Whole Blood 213 mg/dL (75-99)
[2020-07-14] MEDS: SODIUM CHLORIDE 0.9% 1,000 ML IV SCH (16:47)
--- NOTE | 2020-07-14 17:30 | PN ---
PROGRESS NOTE DATE OF SERVICE: 07/14/2020 I am covering for Dr. Encarnacion. This 70-year-old gentleman who was admitted with acute Covid-19 pneumonia is on the monitor in ICU. Patient is on AIRVO and nonrebreather mask at this time. Patient being closely monitored at this time. The patient is feeling slightly better today. The most recent chest x-ray which was personally reviewed by me showed extensive bilateral pneumonia at this time. Past medical history reviewed. REVIEW OF SYSTEMS: CARDIOVASCULAR: No angina. No palpitations. GI: As mentioned earlier. : No dysuria. RESPIRATORY: As mentioned earlier. NERVOUS SYSTEM: No numbness or weakness. CURRENT MEDICATIONS: Reviewed and include: Ventolin, Lovenox, Pepcid, TPN, Solu-Medrol, Lopressor. Doses reviewed. PHYSICAL EXAMINATION: The patient is alert and oriented times three. Pulse 57, blood pressure 129/76. Respirations 19. Temperature normal, pulse ox 92% on AIRVO as well as 100% nonrebreather mask. HEENT: Conjunctivae normal. NECK: No JVD. CARDIOVASCULAR: S1, S2 muffled. RESPIRATIONS: Breath sounds diminished in the bases. A few scattered rhonchi and crackles. ABDOMEN: Soft, nontender. LEGS: No edema. No swelling. NERVOUS SYSTEM: No focal deficits. LABS: Glucose 176. D-dimer is 1.25. Platelets are 111. ASSESSMENT: 1. Acute Covid-19 bilateral interstitial pneumonia with acute hypoxic respiratory failure with sepsis present on admission. 2. Acute delirium with acute metabolic encephalopathy. 3. Thrombocytopenia. 4. Acute hypoxic encephalopathy. 5. Acute renal failure. 6. Hyperglycemia. 7. Gastroesophageal reflux disease. 8. Chronic paroxysmal atrial fibrillation. 9. Congestive heart failure with chronic systolic dysfunction, ejection fraction 35- 40%. 10.Coronary artery disease. 11.History of nicotine dependence. 12.Hypertension. 13.TPN and PICC line. 14.Hyponatremia. 15.Elevated D-dimer. 16.Leukopenia. 17.Mild to moderate protein calorie malnutrition. 18.FULL CODE. RECOMMENDATIONS AND DISCUSSION: Continue the current management. Continue with monitoring and symptomatic treatment. Otherwise, repeat labs in the morning. Continue with the rest of the medications, bronchodilators, AIRVO, non-rebreather mask. We will monitor the platelets. The patient is on IV steroids and TPN and Lovenox. Guarded prognosis. Further recommendations to follow. MMODL / IJN: [id number] /
[2020-07-14 17:32] LABS: Glucose,Whole Blood 203 mg/dL (75-99)
[2020-07-15 00:13] LABS: Glucose,Whole Blood 162 mg/dL (75-99)
[2020-07-15] MEDS: methylPREDNISolone SOD SUCCI 125 MG/2 ML VIAL IV SCH ×4 (00:55→18:09)
[2020-07-15] MEDS: INSULIN ASPART (NovoLOG) 100 UNIT/ML VIAL SQ SCH ×5 (00:55→21:13)
[2020-07-15] MEDS: METOPROLOL TARTRATE 5 MG/5 ML VIAL IVP SCH ×4 (01:02→18:09)
[2020-07-15] MEDS: MORPHINE SULFATE 2 MG/ML SYRINGE IVP PRN ×4 (01:04→21:13)
[2020-07-15 04:41] LABS: Basophils % (A) 0 %; Eosinophils % (A) 0 %; HCT 38.3 % (39.0-53.0); HGB 13.1 gm/dL (13.0-17.5); Lymphocytes # (A) 0.5 k/uL (1.0-4.8); Lymphocytes % (A) 4 %; MCH 30.9 pg (25.0-35.0); MCHC 34.2 g/dL (31.0-37.0); MCV 90.4 fL (80.0-100.0); Mean Platelet Volume 8.8; Monocytes # (A) 0.7 k/uL (0-1.0); Monocytes % (A) 6 %; Neutrophils # (A) 10.7 k/uL (1.3-7.7); Neutrophils % (A) 90 %; Platelet Count 124 k/uL (150-450); RBC 4.23 m/uL (4.30-5.90); RDW 13.8 % (11.5-15.5)
[2020-07-15 04:56] LABS: ALT 92 U/L (4-49); AST 41 U/L (17-59); African American GFR (CKD) >90 (>60 ml/min/1.73 sqM); Albumin 2.7 g/dL (3.5-5.0); Alkaline Phosphatase 104 U/L (38-126); Anion Gap 5 mmol/L; Blood Urea Nitrogen 49 mg/dL (9-20); C Reactive Protein 0.7 mg/dL (<1.0); Calcium 8.9 mg/dL (8.4-10.2); Carbon Dioxide 28 mmol/L (22-30); Chloride 103 mmol/L (98-107); Glucose 203 mg/dL (74-99); LDH 1293 U/L (313-618); Magnesium 2.3 mg/dL (1.6-2.3); Non-African American GFR(CKD) >90 (>60 ml/min/1.73 sqM); Phosphorus 4.1 mg/dL (2.5-4.5); Potassium 4.3 mmol/L (3.5-5.1); Sodium 136 mmol/L (137-145); Total Bilirubin 0.9 mg/dL (0.2-1.3); Total Protein 5.4 g/dL (6.3-8.2)
[2020-07-15 06:28] LABS: Glucose,Whole Blood 209 mg/dL (75-99)
[2020-07-15] MEDS: ALBUTEROL HFA INHALER INHALATION PRN ×3 (07:09→21:30)
--- NOTE | 2020-07-15 07:30 | XR ---
EXAMINATION TYPE: XR chest 1V portable DATE OF EXAM: 07/15/2020 COMPARISON: Chest x-ray 07/14/2020 HISTORY: Covid, abnormal chest x-ray TECHNIQUE: Single frontal view of the chest is obtained. FINDINGS: No evident pneumothorax or pleural effusion. Cardiac mediastinal silhouette is stable. Lef t-sided PICC line shows the distal tip overlying the superior vena cava. Patchy density, prominence i nterstitium present within the lungs as on prior. IMPRESSION: Findings consistent with patient's history of Covid pneumonia.
[2020-07-15] MEDS: FAMOTIDINE 20 MG/2 ML VIAL IV SCH (08:59)
[2020-07-15] MEDS: ENOXAPARIN 40 MG/0.4 ML SYRINGE SQ SCH (08:59)
[2020-07-15] MEDS: INSULIN DETEMIR (LEVEMIR) 100 UNIT/ML SYR SQ SCH (08:59)
[2020-07-15] MEDS: FAT EMULSION 20% 250 ML in EMPTY BAG 1 BAG IV SCH (09:01)
[2020-07-15] MEDS: MAGNESIUM SULFATE IV SCH ×7 (09:09)
[2020-07-15] MEDS: SODIUM ACETATE IV SCH ×7 (09:09)
[2020-07-15] MEDS: [UNRECOGNIZED DRUG - OTHER] IV SCH ×7 (09:09)
[2020-07-15] MEDS: CALCIUM GLUCONATE IV SCH ×7 (09:09)
[2020-07-15 12:07] LABS: Glucose,Whole Blood 169 mg/dL (75-99)
--- NOTE | 2020-07-15 13:00 | P.PN ---
Subjective Progress Note Date: 07/15/20 Principal diagnosis: Acute hypoxic respiratory failure secondary to acute covid 19 pneumonitis. This is a 70-year-old gentleman that was seen in the emergency room on June 21. He was sent into the emergency room after being seen by his primary care doctor because of increasing shortness of breath, and concerns that the patient might have COVID 19. In addition to shortness of breath, the patient states he's been having lots of chest congestion, and is been coughing. When he coughs, it is painful in his chest. He has been sick for at least 2 weeks. In addition, he has muscle aches and joint aches, weakness and fatigue, and fever and chills. Currently, he is on a nonrebreather mask. Saturations are 92%. His primary care physician Dr. Vijay Encarnacion. He was not receiving any IV fluids. His primary medical problems include atrial fibrillation, coronary artery disease, hyperlipidemia, hypertension, gastroesophageal reflux disease, and prior myocardial infarction. The patient is a lifelong nontobacco user. White count is 4.9, hemoglobin 13.5, hematocrit 39.5, platelet count 92,000. PTT 61.3. D- dimer 2.41. Sodium 132, potassium 4.8, chloride 105, CO2 18, anion gap 9, BUN and creatinine 52 and 2.05. Calcium 7.6, AST 156, pO2 102, LDH 2018. C- reactive protein 158. I was not able to look at the chest x-ray. There is apparently a partially occlusive opacity at the right lung base consistent with acute pneumonic process. CT angiogram was not performed. Patient was reevaluated today on 06/23/2020, patient is feeling better today compared to how he felt yesterday. Patient is on high flow cannula running at 15 L/m, his O2 saturation is in the mid to high 80s he is on 100% FiO2 basically. His chest x-ray does not seem to be impressive, he does have consolidative opacity in the right lung base consistent with acute pneumonic process. Left lung is relatively clear. No significant pulmonary congestion. D-dimer is 2.56. Renal profile is not good enough for performing a CT angiogram of the chest, however I will recommend bilateral venous Doppler on this patient just to make sure we were not dealing with thromboembolic process. Again the patient tells me that his feeling better today compared to how he felt yesterday. Clinically improving. Patient was reevaluated today on 06/24/2020, patient remains on high flow oxygen. He is on 15 L high flow cannula, and his O2 saturations 92% at best. Patient continues to have shortness of breath, intermittent episodes of cough. He has no fever, his vital signs are relatively stable. During my evaluation, patient was constantly coughing. CBC is relatively normal electrolytes are normal BUN is 52 creatinine 1.45. LDH is elevated at 1586. Venous Doppler yesterday was negative. Chest x-ray on admission showed consolidation at the right lung base. I also suspect some consolidation at the left base/retrocardiac area. Progress note dated 06/25/2020. Currently, the patient was on BiPAP and on percent. Earlier today, he desaturated, and the nurses had a hard time getting his saturations back up. We did do a blood gas on the patient. PO2 was 63, pCO2 was 33, pH was 7.44. That was on 100% on the BiPAP. White count 14.8, hemoglobin hematocrit and platelet count all normal. Sodium 136, potassium 4.9, chlorides 107, CO2 20, anion gap 9, BUN 45, creatinine 1.28. Chest x-ray today showed diffuse bilateral patchy infiltrates which are stable. Yesterday, he was on high flow nasal O2 at 15 L/m. Progress note dated 06/26/2020. 70-year-old male, currently on BiPAP, at 16/6 and 80%. His saturations were good, so the FiO2 was dropped from 80% down to 60%. The patient appears to be doing reasonably well, although he did become somewhat tachypnea today when he was being evaluated here. Saturations are 90% on the 60% FiO2. Temperature is 98.1, and blood pressure 173/104. White count 14.9, and hemoglobin, hematocrit, and platelet count are all normal. Sodium 135, potassium 5.2, chlorides 106, CO2 18, anion gap 11, BUN 38, creatinine 1.23. Chest x-ray from June 25, shows bilateral patchy infiltrates. The patient is seen today 06/27/2020 in follow-up on the regular medical floor. He is currently resting fairly comfortably in bed. He is maintaining O2 saturation in the 90s on BiPAP 16/6 and 60% FiO2. 0.9 normal saline at 50 MLS per hour. Chest x-ray continues to show patchy bilateral infiltrates compatible with superimposed interstitial pneumonia. White count 8.3. Hemoglobin 13.4. Sodium 139. Potassium 5.6. Creatinine 1.13. He is continued on dexamethasone, Xarelto, vitamin supplements. The patient is seen today 06/28/2020 follow-up on the selective care unit. He is currently sitting up in bed. Remains on BiPAP 16/6 and 100% FiO2 maintaining O2 saturation the high 80s low 90s. He is 0.9 normal saline at 50 MLS per hour. He is now on Lovenox, dexamethasone, vitamin supplements. PICC line placed today. The patient is seen today 06/29/2020 follow-up on the selective care unit. He remains on BiPAP 16/6 and 100% FiO2 to maintain O2 saturations in the low 90s. He is afebrile. Currently being nourished with TPN via PICC line. 0.9 normal saline at 50 ML's per hour. Blood cultures reveal no growth. Sodium 140. Potassium 5.1. Creatinine 1.18. Glucose 125. He remains on dexamethasone, Lovenox, vitamin supplements. The patient is seen today 06/30/2020 follow-up on the selective care unit. He is currently resting fairly comfortably in bed. Remains on BiPAP 16/6 at 100% FiO2. He is being nourished with TPN and lipids via PICC line. 0.9 normal saline at 50 MLS per hour. He states he is still quite fatigued but improved today compared to yesterday. Cultures reveal no growth. D-dimer 10.2. Sodium 140. Potassium 5.2. Creatinine 0.99. LDH 1591. C-reactive protein 53.8. He remains on therapeutic Lovenox, dexamethasone, vitamin supplements. The patient is seen today 07/01/2020 in follow-up on the selective care unit. He is resting comfortably in bed. Continued on BiPAP 16/6 and 100% FiO2 to maintain O2 saturations in the high 80s low 90s. Chest x-ray continues to show scattered bilateral lung infiltrates which are stable compared to previous. Sodium 142. Potassium 4.8. Creatinine 0.95. Yesterday's d-dimer 10.23. Remains on therapeutic Lovenox at 100 mg subcu every 12 hours, Decadron, vitamin supplements. On today's evaluation of 07/02/2020 on seeing the patient for a follow-up. The patient remains on a BiPAP at a pressure of 16/6 cm of water and FiO2 of 80%. The patient is also receiving TPN for nutritional support. Therapeutic dose of Lovenox. His d-dimer was quite elevated at 10.2, normal renal function, normal electrolytes, CRP was elevated at 53 with an LDH level of 1591. Most recent chest x-ray from 07/01/2030 showing peripherally located infiltrates bilaterally. The patient is able to generate tidal volume of around 370 on the BiPAP machine. His extremities around 28. He is very weak. He cannot tolerate being off the BiPAP as the patient immediately desaturates even was taken pills or sips of water. He remains on TPN for nutritional support. His symptoms of his blood work today, he has white cell count of 9.8 with a hemoglobin of 12, sodium is 139 and a creatinine of 0.9. His current pulse ox on the percent on above-mentioned BiPAP setting with an FiO2 of 80%.Inflammatory markers are still elevated. D-dimer is at 5 and the patient also has an LDH level of 1009 with a CRP of 143.The chest x-ray from yesterday was showing worsening in the bilateral lower lobe pulmonary infiltrates especially in the right lower lobe. 07/03/2020 the patient remains on BiPAP at a pressure of 16/6 with an FiO2 of 80% and this is essentially the same setting as yesterday. His current vitals show a pulse ox of 94% on above-mentioned ventilator setting. He is afebrile. Breathing is nonlabored. He is still on TPN for nutritional support. His chest x-ray from 07/01/2020 showed peripheral pulmonary infiltrates consistent with Coumadin related pneumonia. No repeat x-rays since then. The patient remains considerably weak. His blood work from today showing no major electrolyte abnormalities. His LDH level was dropping yesterday down to 1009. He is still on Decadron 6 mg IV every 24 hours. He is also on Lovenox 45 mg subcu every 12 hours. On the BiPAP machine, degenerative tidal volumes around 400. 06/03/2020 this morning the patient is off the BiPAP and the patient is currently on a high flow oxygen 60 L with an FiO2 of 86%. The patient is also using 100% nonrebreather facemask. His current pulse ox is around 91%. He has developed skin breaks and ulceration from his BiPAP mask and is currently off the BiPAP. He is resting comfortably in bed. He is still on Lovenox 45 mg subcu every 12 hours. There is on steroids and the patient is receiving Decadron 6 mg IV every 24 hours. The patient is also on TPN for nutritional support. LDH level is at 893 which is lower than the CRP level is down to 50. He is quite weak and debilitated. His white cell count of 6.8 with a hemoglobin of 12.3. No fever. No other new complaints otherwise for now. Most recent d- dimer was at 5 from 07/02/2020. 07/05/2020, the patient remains on BiPAP. The patient was on high flow oxygen yesterday and desaturated and he decompensated and he was switched to a BiPAP at a pressure of 16/6 with an FiO2 of 80%. This occurred when the patient on was trying to have some breakfast earlier this morning. He was on high flow oxygen. He dropped his oxygen saturations significantly and he was very slow in recovery. At that point, he was switched to a BiPAP. His current pulse ox is 90%. He is quite lethargic and somnolent. He is unable to eat and he has TPN for nutritional support. He continues to be on Decadron 6 mg IV every 24 hours. He is also on Lovenox 45 mg subcutaneously every 12 hours. On his blood work, he had a d-dimer of 6.49 which is slightly higher than the white cell count is at 8.6 with a hemoglobin of 12.8. TPN is current to being administered for nutritional support. No other significant events , otherwise his night was u neventful.. The PICC line is in the left upper extremity. The patient also has a Kwan catheter in place. Each in relating a tidal volume of 550 and his respiratory rate is currently in the mid 30s. He seems to be quite comfortable. He is however lethargic. 07/06/2020, the patient is on a BiPAP at a pressure of 16/6 with an FiO2 of 100%. Pulse ox is currently at around 88%. He was having some oxygen desaturations and the patient was brought up to 100% on her BiPAP FiO2. The patient's subsequent reading in a pulse ox in the order of 91%. Remains on TPN for nutritional support. Remains on Decadron 6 mg IV every 24 hours. Remains on Lovenox 45 mg subcu every 12 hours. Blood work shows a d-dimer of 5.64. No electrolyte abnormalities. Condition is essentially unchanged and probably the same as yesterday. Still on Levemir insulin 10 units along with a sliding scale coverage. Blood sugars are adequate for now. He does have a PICC line in left upper extremity. He has a Kwan catheter in place. At around 10:00 this morning, the patient was trialed on the percent nonrebreather with a high flow oxygen at 60 L with an FiO2 of 90%. He desaturated to the low 60s and he was pl aced accordingly back on BiPAP. 07/07/2020 the patient is a same BiPAP setting which is 60/6 with an FiO2 of 95%. Earlier this morning she was trialed on high flow oxygen with 60 L and FiO2 of 90% and he decompensated and he became profoundly hypoxic and he had to be placed back on the BiPAP. His current pulse ox in the low 90s. He remains on IV Decadron 6 and the rescue 24 hours. He remains on Lovenox 45 mg subcu every 12 hours. Chest x-ray from today is showing stable bilateral interstitial pulmonary infiltrates with some worsening consolidation of the left lower lobe. Meanwhile, the patient is still receiving TPN for nutritional support. He is unable to take oral intake because of his extreme BiPAP dependence. D-dimer is at 4.06 and the patient is on Lovenox 45 mg subcu every 12 hours. He has also LDH level of 962, CRP level is at 8.3, electrolytes are all within normal duran its. Unfortunately, he is still doing poorly and is not showing any signs of recovery. He remains on Levemir insulin 10 units daily along with a sliding- scale coverage. He has a Kwan catheter in place. Respiratory rate is in the mid 30s. He is quite lethargic. 2020, the patient continues to be on a BiPAP at a pressure of 16/6 with an FiO2 of 95%. Awake and alert. Slightly tachypneic. Pulse ox is 89% on the above-mentioned BiPAP setting. Minute ventilation as 40 L as we were seeing the patient and his minute ventilation with a. Otherwise his aspirate has been in the high 20s low 30 range. Whenever he sleeps, his respiratory rate goes down. He wants to stay on the BiPAP and he doesn't want to transition to the high flow oxygen today. Repeat chest x-ray was done and the findings are essentially stable with diffuse bilateral pulmonary infiltrates. No evidence of any pne umothorax. No interval progression or worsening his chest x-ray findings. Meanwhile, his blood work shows no major abnormalities. Blood sugars are not elevated. The patient remains on TPN for nutrition support and the patient remains on Decadron IV every 24 hours on Lovenox 45 mg subcu every 12 hours. D- dimer level is at 4.06. Patient was reevaluated today on 07/09/2020, remains on high flow oxygen using airvo and non-rebreather mask. Patient is on 94% FiO2 and 60 L flow per minute. Patient is about the same, not getting any better not getting any worse. He is noted to be slightly tachypneic. Has BiPAP at bedside, but not using it at present. Basic metabolic profile today is normal., Last LDH was trending down to 962 and C-reactive protein 8.3 Patient was reevaluated today on 07/10/2020, remains on high flow oxygen using Airvo and nonrebreather mask. O2 saturation remains marginal in the low 90s and high 80s patient denies being short of breath. He has intermittent cough. His d-dimer is 5.4 to today. Not significantly changed over the last 1 week. Basic metabolic profile is normal renal profile is normal. His last C-reactive protein was 8.3 and his LDH was 962 from 2 days ago. Chest x-ray from 07/08 continues to show persistent bilateral multifocal and comfortable in particular opacities consistent with COVID-19 infection. Patient was reevaluated today on 07/11/2020, remains on high flow oxygen, patient is on nonrebreather plus airvo 90% FiO2 and 60 L flow, O2 saturation remains marginal in the mid to high 80s. Patient in mild distress, but overall he thi nks he is getting a bit better. Tried today to change position on the patient and see if his oxygenation improves, did not seem to make much of a difference, and the patient could not lay prone. He had even some difficulty laying on the right side. Remained generally weak, not making significant progress since admission. His CBC looks relatively normal his d-dimer is 5 renal profile is normal. Electrolytes are normal. Last chest x-ray from 2 days ago was consistent with COVID-19 pneumonia. Patient was reevaluated today on 07/15/2020, remains in the ICU, clinically he feels and looks better. However he remains on relatively high FiO2 90% and 60 L flow. Patient is off BiPAP at present, he is on TPN, and I plan to at least to start feeding orally since he is not on BiPAP. Patient has been in the hospital for almost 3 weeks. Chest x-ray is showing basically stable findings related to COVID-19 pneumonia, patchy densities and prominence of the interstitium noted in both lungs. ABC is relatively normal WBC count of 12 hemoglobin is 13.Normal renal profile is normal. LDH is 1293. C-reactive protein is 0.7. Objective - Vital Signs Vital signs: Vital Signs Temp 98.1 F 07/15/20 08:00 Pulse 46 L 07/15/20 11:00 Resp 17 07/15/20 11:00 BP 130/68 07/15/20 11:00 Pulse Ox 93 L 07/15/20 11:00 Intake & Output 07/14/20 07/15/20 07/15/20 18:59 06:59 18:59 Intake Total 1449 2373 315 Output Total 630 665 130 Balance 819 1708 185 Intake: IV 1449 1260 315 Fat Emulsion 20% 250 ml 189 In Empty Bag 1 bag @ 21 mls/hr IV DAILY ROBERT Rx#: [id number] Mvi, Adult No.4 with Vit 1020 1020 255 K 10 ml Trace (Conc-1Ml/ Dose) 1 ml Sodium Acetate 50 meq Calcium Gluconate 1 gm Magnesium Sulfate gm 1 gm Sodium Chloride 4Meq/ml Vial 20 meq In Amino Acid 5%-D15w 1,000 ml @ 85 mls/hr IV .BY DURATION ROBERT Rx#: [id number] Sodium Chloride 0.9% 1, 240 240 60 000 ml @ 20 mls/hr IV . Q24H [facility]ERT Rx#:[id number] Intake, IV Titration 1053 Amount Mvi, Adult No.4 with Vit 1053 K 10 ml Trace (Conc-1Ml/ Dose) 1 ml Sodium Acetate 50 meq Calcium Gluconate 1 gm Magnesium Sulfate gm 1 gm Sodium Chloride 4Meq/ml Vial 20 meq In Amino Acid 5%-D15w 1,000 ml @ 85 mls/hr IV .BY DURATION [facility] Rx#: [id number] Oral 60 Output: Urine 630 665 130 Other: Voiding Method Indwelling Catheter Indwelling Catheter Indwelling Catheter - Exam Physical Exam: Revealed a 70-year-old white male on high flow oxygen, not in distress. Actually feels better today compared to the last few days, he is on airvo Head: Atraumatic, normocephalic. HEENT:[Neck is supple.] [No neck masses.] [No thyromegaly.] [No JVD.] Chest: [Bibasilar crackles noted, right more so than left, no rhonchi and no wheezes. Cardiac Exam: [Normal S1 and S2, no S3 gallop, no murmur.] Abdomen: [Soft, nontender, no megaly, no rebound, no guarding, normal bowel sounds.] Extremities: [No clubbing, no edema, no cyanosis.] Neurological Exam: [No focal neurologic deficit.] Alert oriented 3. Psychiatric: Normal mood affect and normal mental status examination - Labs CBC & Chem 7: 07/15/20 04:08 07/15/20 04:08 Labs: Abnormal Lab Results - Last 24 Hours (Table) 07/14/20 07/15/20 07/15/20 Range/Units 17:31 00:11 04:08 WBC (3.8-10.6) k/uL RBC (4.30-5.90) m/uL Hct (39.0-53.0) % Plt Count (150-450) k/uL Neutrophils # (1.3-7.7) k/uL Lymphocytes # (1.0-4.8) k/uL D-Dimer 1.30 H (<0.60) mg/L FEU Sodium (137-145) mmol/L BUN (9-20) mg/dL Glucose (74-99) mg/dL POC Glucose (mg/dL) 203 H 162 H (75-99) mg/dL ALT (4-49) U/L Lactate Dehydrogenase (313-618) U/L Total Protein (6.3-8.2) g/dL Albumin (3.5-5.0) g/dL 07/15/20 07/15/20 07/15/20 Range/Units 04:08 04:08 06:26 WBC 12.0 H (3.8-10.6) k/uL RBC 4.23 L (4.30-5.90) m/uL Hct 38.3 L (39.0-53.0) % Plt Count 124 L (150-450) k/uL Neutrophils # 10.7 H (1.3-7.7) k/uL Lymphocytes # 0.5 L (1.0-4.8) k/uL D-Dimer (<0.60) mg/L FEU Sodium 136 L (137-145) mmol/L BUN 49 H (9-20) mg/dL Glucose 203 H (74-99) mg/dL POC Glucose (mg/dL) 209 H (75-99) mg/dL ALT 92 H (4-49) U/L Lactate Dehydrogenase 1293 H (313-618) U/L Total Protein 5.4 L (6.3-8.2) g/dL Albumin 2.7 L (3.5-5.0) g/dL 07/15/20 Range/Units 12:05 WBC (3.8-10.6) k/uL RBC (4.30-5.90) m/uL Hct (39.0-53.0) % Plt Count (150-450) k/uL Neutrophils # (1.3-7.7) k/uL Lymphocytes # (1.0-4.8) k/uL D-Dimer (<0.60) mg/L FEU Sodium (137-145) mmol/L BUN (9-20) mg/dL Glucose (74-99) mg/dL POC Glucose (mg/dL) 169 H (75-99) mg/dL ALT (4-49) U/L Lactate Dehydrogenase (313-618) U/L Total Protein (6.3-8.2) g/dL Albumin (3.5-5.0) g/dL Assessment and Plan Assessment: Impression: Acute hypoxic respiratory failure secondary to Covid 19 pneumonia. Patient was outside the window for REM, received toci, remains on Decadron. Patient is now off BiPAP, and on airvo, likely improving. Chronic atrial fibrillation. Previous [place]. And history of coronary artery disease. History of gout. Coronary artery disease and previous stent placement. GERD without esophagitis. Benign essential hypertension. Acute kidney injury, improved. Recommendation: Continue to monitor in the ICU. Continue oxygen and titrate accordingly. Continue TPN however will start the patient on oral feeding and decide whether TPN could be discontinued. Out of the window for REM. Continue the Covid 19 cocktail. Continue Lovenox and Decadron. We will continue to follow. Prognosis remains relatively guarded. Time with Patient: Less than 30
--- NOTE | 2020-07-15 14:44 | PN ---
PROGRESS NOTE DATE OF SERVICE: 07/15/2020 I am covering for Dr. Encarnacion This 70-year-old gentleman was admitted with COVID-19 and acute hypoxic respiratory failure. Closely monitoring the patient, closely monitored in ICU. The most recent chest x-ray showed pneumonia. Dr. Rodriguez is following the patient closely. PAST MEDICAL HISTORY: Reviewed. REVIEW OF SYSTEMS: CARDIOVASCULAR: No angina. RESPIRATORY: As mentioned earlier. GI: As mentioned earlier. NERVOUS SYSTEM: No numbness or weakness. CURRENT MEDICATIONS: Reviewed include Ventolin, Lovenox, Pepcid, TPN, Levemir, Solu-Medrol. PHYSICAL EXAMINATION: Alert and oriented x3. Pulse 74, blood pressure 130/70, respiration 13, temp 97.2, pulse ox 86% on 60% FIO2. HEENT: Conjunctivae normal. Oral mucosa moist. NECK: No jugular venous distention. No lymph node enlargement. CARDIOVASCULAR: S1, S2, muffled. No S3, no S4, RESPIRATORY: Diminished breath sounds at the bases. A few scattered rhonchi and crackles. ABDOMEN: Soft, nontender. LEGS: No edema, no swelling. NERVOUS SYSTEM: No focal deficits. LABS: WBC 12, hemoglobin 13.1. ASSESSMENT: 1. Acute COVID-19 bilateral interstitial pneumonia, acute hypoxic respiratory failure with acute sepsis, present on admission. 2. Acute delirium with acute metabolic encephalopathy. 3. Thrombocytopenia. 4. Acute hypoxic encephalopathy. 5. Acute renal failure. 6. Hyperglycemia. 7. Gastroesophageal reflux disease. 8. Chronic persistent atrial fibrillation. 9. Congestive heart failure with chronic systolic dysfunction, ejection fraction 35- 40%. 10.Coronary artery disease. 11.History of nicotine dependence. 12.History of hypertension. 13.TPN and PICC line. 14.Hyponatremia. 15.Elevated D-dimer. 16.Leukopenia. 17.Mild to moderate protein-calorie malnutrition. 18.FULL CODE. RECOMMENDATIONS AND DISCUSSION: Recommend to continue current management and symptomatic treatment. Continue bronchodilators. Continue Lovenox. Continue the rest of medications. Repeat labs. Guarded prognosis because of multiple complex medical issues. Further recommendations to follow. MMODL / IJN: [id number] /
[2020-07-15 16:54] LABS: Glucose,Whole Blood 241 mg/dL (75-99)
[2020-07-15] MEDS: SODIUM CHLORIDE 0.9% 1,000 ML IV SCH (18:10)
[2020-07-15 21:06] LABS: Glucose,Whole Blood 252 mg/dL (75-99)
[2020-07-16] MEDS: METOPROLOL TARTRATE 5 MG/5 ML VIAL IVP SCH ×2 (01:06→05:30)
[2020-07-16] MEDS: methylPREDNISolone SOD SUCCI 125 MG/2 ML VIAL IV SCH ×5 (01:07→23:50)
[2020-07-16] MEDS: MORPHINE SULFATE 2 MG/ML SYRINGE IVP PRN ×2 (01:19→23:53)
[2020-07-16 03:58] LABS: ALT 182 U/L (4-49); AST 96 U/L (17-59); African American GFR (CKD) >90 (>60 ml/min/1.73 sqM); Albumin 2.5 g/dL (3.5-5.0); Alkaline Phosphatase 93 U/L (38-126); Anion Gap 4 mmol/L; Blood Urea Nitrogen 48 mg/dL (9-20); Calcium 8.5 mg/dL (8.4-10.2); Carbon Dioxide 28 mmol/L (22-30); Chloride 103 mmol/L (98-107); Glucose 72 mg/dL (74-99); Magnesium 2.3 mg/dL (1.6-2.3); Non-African American GFR(CKD) >90 (>60 ml/min/1.73 sqM); Phosphorus 3.9 mg/dL (2.5-4.5); Potassium 4.5 mmol/L (3.5-5.1); Sodium 135 mmol/L (137-145); Total Bilirubin 1.4 mg/dL (0.2-1.3); Total Protein 5.2 g/dL (6.3-8.2)
[2020-07-16 04:36] LABS: HCT 37.5 % (39.0-53.0); HGB 12.9 gm/dL (13.0-17.5); MCH 31.4 pg (25.0-35.0); MCHC 34.5 g/dL (31.0-37.0); MCV 90.9 fL (80.0-100.0); Platelet Count 105 k/uL (150-450); RBC 4.12 m/uL (4.30-5.90); RDW 13.8 % (11.5-15.5); WBC 10.2 k/uL (3.8-10.6)
[2020-07-16] MEDS: SODIUM ACETATE IV SCH ×7 (05:30)
[2020-07-16] MEDS: CALCIUM GLUCONATE IV SCH ×7 (05:30)
[2020-07-16] MEDS: [UNRECOGNIZED DRUG - OTHER] IV SCH ×7 (05:30)
[2020-07-16] MEDS: MAGNESIUM SULFATE IV SCH ×7 (05:30)
[2020-07-16 07:10] LABS: Glucose,Whole Blood 141 mg/dL (75-99)
[2020-07-16] MEDS: INSULIN DETEMIR (LEVEMIR) 100 UNIT/ML SYR SQ SCH (07:13)
[2020-07-16] MEDS: INSULIN ASPART (NovoLOG) 100 UNIT/ML VIAL SQ SCH ×4 (07:13→20:43)
[2020-07-16] MEDS: ALBUTEROL HFA INHALER INHALATION PRN ×4 (07:41→20:02)
[2020-07-16] MEDS: FAMOTIDINE 20 MG/2 ML VIAL IV SCH (08:12)
[2020-07-16] MEDS: ENOXAPARIN 40 MG/0.4 ML SYRINGE SQ SCH (08:13)
[2020-07-16] MEDS: METOPROLOL TARTRATE 25 MG TAB PO SCH ×2 (09:03→20:42)
--- NOTE | 2020-07-16 09:07 | XR ---
EXAMINATION TYPE: XR chest 1V portable DATE OF EXAM: 07/16/2020 COMPARISON: Chest x-ray 07/15/2020 HISTORY: Covid pneumonia TECHNIQUE: Single frontal view of the chest is obtained. FINDINGS: Bilateral interstitial and airspace disease shows a similar appearance. Left-sided PICC li ne is stable. There is no evident pneumothorax or pleural effusion. Cardiomediastinal silhouette is s table. Aorta is dense. IMPRESSION: Correlate for pneumonia.
--- NOTE | 2020-07-16 11:00 | P.PN ---
Subjective Progress Note Date: 07/16/20 Principal diagnosis: Acute hypoxic respiratory failure secondary to COVID-19 pneumonia This is a 70-year-old gentleman that was seen in the emergency room on June 21. He was sent into the emergency room after being seen by his primary care doctor because of increasing shortness of breath, and concerns that the patient might have COVID 19. In addition to shortness of breath, the patient states he's been having lots of chest congestion, and is been coughing. When he coughs, it is painful in his chest. He has been sick for at least 2 weeks. In addition, he has muscle aches and joint aches, weakness and fatigue, and fever and chills. Currently, he is on a nonrebreather mask. Saturations are 92%. His primary care physician Dr. Vijay Encarnacion. He was not receiving any IV fluids. His primary medical problems include atrial fibrillation, coronary artery disease, hype rlipidemia, hypertension, gastroesophageal reflux disease, and prior myocardial infarction. The patient is a lifelong nontobacco user. White count is 4.9, hemoglobin 13.5, hematocrit 39.5, platelet count 92,000. PTT 61.3. D-dimer 2.41. Sodium 132, potassium 4.8, chloride 105, CO2 18, anion gap 9, BUN and creatinine 52 and 2.05. Calcium 7.6, AST 156, pO2 102, LDH 2018. C-reactive protein 158. I was not able to look at the chest x-ray. There is apparently a partially occlusive opacity at the right lung base consistent with acute pneumonic process. CT angiogram was not performed. Patient was reevaluated today on 06/23/2020, patient is feeling better today compared to how he felt yesterday. Patient is on high flow cannula running at 15 L/m, his O2 saturation is in the mid to high 80s he is on 100% FiO2 basically. His chest x-ray does not seem to be impressive, he does have consoli dative opacity in the right lung base consistent with acute pneumonic process. Left lung is relatively clear. No significant pulmonary congestion. D-dimer is 2.56. Renal profile is not good enough for performing a CT angiogram of the chest, however I will recommend bilateral venous Doppler on this patient just to make sure we were not dealing with thromboembolic process. Again the patient tells me that his feeling better today compared to how he felt yesterday. Clinically improving. Patient was reevaluated today on 06/24/2020, patient remains on high flow oxygen. He is on 15 L high flow cannula, and his O2 saturations 92% at best. Patient continues to have shortness of breath, intermittent episodes of cough. He has no fever, his vital signs are relatively stable. During my evaluation, patient was constantly coughing. CBC is relatively normal electrolytes are normal BUN is 52 creatinine 1.45. LDH is elevated at 1586. Venous Doppler yesterday was negative. Chest x-ray on admission showed consolidation at the right lung base. I also suspect some consolidation at the left base/retrocardiac area. Progress note dated 06/25/2020. Currently, the patient was on BiPAP and on percent. Earlier today, he desaturated, and the nurses had a hard time getting his saturations back up. We did do a blood gas on the patient. PO2 was 63, pCO2 was 33, pH was 7.44. That was on 100% on the BiPAP. White count 14.8, hemoglobin hematocrit and platelet count all normal. Sodium 136, potassium 4.9, chlorides 107, CO2 20, anion gap 9, BUN 45, creatinine 1.28. Chest x-ray today showed diffuse bilateral patchy infiltrates which are stable. Yesterday, he was on high flow nasal O2 at 15 L/m. Progress note dated 06/26/2020. 70-year-old male, currently on BiPAP, at 16/6 and 80%. His saturations were good, so the FiO2 was dropped from 80% down to 60%. The patient appears to be d oing reasonably well, although he did become somewhat tachypnea today when he was being evaluated here. Saturations are 90% on the 60% FiO2. Temperature is 98.1, and blood pressure 173/104. White count 14.9, and hemoglobin, hematocrit, and platelet count are all normal. Sodium 135, potassium 5.2, chlorides 106, CO2 18, anion gap 11, BUN 38, creatinine 1.23. Chest x-ray from June 25, shows bilateral patchy infiltrates. The patient is seen today 06/27/2020 in follow-up on the regular medical floor. He is currently resting fairly comfortably in bed. He is maintaining O2 saturation in the 90s on BiPAP 16/6 and 60% FiO2. 0.9 normal saline at 50 MLS per hour. Chest x-ray continues to show patchy bilateral infiltrates compatible with superimposed interstitial pneumonia. White count 8.3. Hemoglobin 13.4. Sodium 139. Potassium 5.6. Creatinine 1.13. He is continued on dexamethasone, Xarelto, vitamin supplements. The patient is seen today 06/28/2020 follow-up on the selective care unit. He is currently sitting up in bed. Remains on BiPAP 16/6 and 100% FiO2 maintaining O2 saturation the high 80s low 90s. He is 0.9 normal saline at 50 MLS per hour. He is now on Lovenox, dexamethasone, vitamin supplements. PICC line placed today. The patient is seen today 06/29/2020 follow-up on the selective care unit. He remains on BiPAP 16/6 and 100% FiO2 to maintain O2 saturations in the low 90s. He is afebrile. Currently being nourished with TPN via PICC line. 0.9 normal saline at 50 ML's per hour. Blood cultures reveal no growth. Sodium 140. Potassium 5.1. Creatinine 1.18. Glucose 125. He remains on dexamethasone, Lovenox, vitamin supplements. The patient is seen today 06/30/2020 follow-up on the selective care unit. He is currently resting fairly comfortably in bed. Remains on BiPAP 16/6 at 100% FiO2. He is being nourished with TPN and lipids via PICC line. 0.9 normal saline at 50 MLS per hour. He states he is still quite fatigued but improved today compared to yesterday. Cultures reveal no growth. D-dimer 10.2. Sodium 140. Potassium 5.2. Creatinine 0.99. LDH 1591. C-reactive protein 53.8. He remains on therapeutic Lovenox, dexamethasone, vitamin supplements. The patient is seen today 07/01/2020 in follow-up on the selective care unit. He is resting comfortably in bed. Continued on BiPAP 16/6 and 100% FiO2 to maintain O2 saturations in the high 80s low 90s. Chest x-ray continues to show scattered bilateral lung infiltrates which are stable compared to previous. Sodium 142. Potassium 4.8. Creatinine 0.95. Yesterday's d-dimer 10.23. Remains on therapeutic Lovenox at 100 mg subcu every 12 hours, Decadron, vitamin supplements. On today's evaluation of 07/02/2020 on seeing the patient for a follow-up. The patient remains on a BiPAP at a pressure of 16/6 cm of water and FiO2 of 80%. The patient is also receiving TPN for nutritional support. Therapeutic dose of Lovenox. His d-dimer was quite elevated at 10.2, normal renal function, normal electrolytes, CRP was elevated at 53 with an LDH level of 1591. Most recent chest x-ray from 07/01/2030 showing peripherally located infiltrates bilaterally. The patient is able to generate tidal volume of around 370 on the BiPAP machine. His extremities around 28. He is very weak. He cannot tolerate being off the BiPAP as the patient immediately desaturates even was taken pills or sips of water. He remains on TPN for nutritional support. His symptoms of his blood work today, he has white cell count of 9.8 with a hemoglobin of 12, sodium is 139 and a creatinine of 0.9. His current pulse ox on the percent on above-mentioned BiPAP setting with an FiO2 of 80%.Inflammatory markers are still elevated. D-dimer is at 5 and the patient also has an LDH level of 1009 with a CRP of 143.The chest x-ray from yesterday was showing worsening in the bilateral lower lobe pulmonary infiltrates especially in the right lower lobe. 07/03/2020 the patient remains on BiPAP at a pressure of 16/6 with an FiO2 of 80% and this is essentially the same setting as yesterday. His current vitals show a pulse ox of 94% on above-mentioned ventilator setting. He is afebrile. Breathing is nonlabored. He is still on TPN for nutritional support. His chest x-ray from 07/01/2020 showed peripheral pulmonary infiltrates consistent with Coumadin related pneumonia. No repeat x-rays since then. The patient remains considerably weak. His blood work from today showing no major electrolyte abnormalities. His LDH level was dropping yesterday down to 1009. He is still on Decadron 6 mg IV every 24 hours. He is also on Lovenox 45 mg subcu every 12 hours. On the BiPAP machine, degenerative tidal volumes around 400. 06/03/2020 this morning the patient is off the BiPAP and the patient is currently on a high flow oxygen 60 L with an FiO2 of 86%. The patient is also using 100% nonrebreather facemask. His current pulse ox is around 91%. He has developed skin breaks and ulceration from his BiPAP mask and is currently off the BiPAP. He is resting comfortably in bed. He is still on Lovenox 45 mg subcu every 12 hours. There is on steroids and the patient is receiving De cadron 6 mg IV every 24 hours. The patient is also on TPN for nutritional support. LDH level is at 893 which is lower than the CRP level is down to 50. He is quite weak and debilitated. His white cell count of 6.8 with a hemoglobin of 12.3. No fever. No other new complaints otherwise for now. Most recent d- dimer was at 5 from 07/02/2020. 07/05/2020, the patient remains on BiPAP. The patient was on high flow oxygen yesterday and desaturated and he decompensated and he was switched to a BiPAP at a pressure of 16/6 with an FiO2 of 80%. This occurred when the patient on was trying to have some breakfast earlier this morning. He was on high flow oxygen. He dropped his oxygen saturations significantly and he was very slow in recovery. At that point, he was switched to a BiPAP. His current pulse ox is 90%. He is quite lethargic and somnolent. He is unable to eat and he has TPN for nutritional support. He continues to be on Decadron 6 mg IV every 24 hours. He is also on Lovenox 45 mg subcutaneously every 12 hours. On his blood work, he had a d-dimer of 6.49 which is slightly higher than the white cell count is at 8.6 with a hemoglobin of 12.8. TPN is current to being administered for nutritional support. No other significant events , otherwise his night was uneventful.. The PICC line is in the left upper extremity. The patient also has a Kwan catheter in place. Each in relating a tidal volume of 550 and his respiratory rate is currently in the mid 30s. He seems to be quite comfortable. He is however lethargic. 07/06/2020, the patient is on a BiPAP at a pressure of 16/6 with an FiO2 of 100%. Pulse ox is currently at around 88%. He was having some oxygen desaturations and the patient was brought up to 100% on her BiPAP FiO2. The patient's subsequent reading in a pulse ox in the order of 91%. Remains on TPN for nutritional support. Remains on Decadron 6 mg IV every 24 hours. Remains on Lovenox 45 mg subcu every 12 hours. Blood work shows a d-dimer of 5.64. No electrolyte abnormalities. Condition is essentially unchanged and probably the same as yesterday. Still on Levemir insulin 10 units along with a sliding scale coverage. Blood sugars are adequate for now. He does have a PICC line in left upper extremity. He has a Kwan catheter in place. At around 10:00 this morning, the patient was trialed on the percent nonrebreather with a high flow oxygen at 60 L with an FiO2 of 90%. He desaturated to the low 60s and he was placed accordingly back on BiPAP. 07/07/2020 the patient is a same BiPAP setting which is 60/6 with an FiO2 of 95%. Earlier this morning she was trialed on high flow oxygen with 60 L and FiO2 of 90% and he decompensated and he became profoundly hypoxic and he had to be placed back on the BiPAP. His current pulse ox in the low 90s. He remains on IV Decadron 6 and the rescue 24 hours. He remains on Lovenox 45 mg subcu every 12 hours. Chest x-ray from today is showing stable bilateral interstitial pulmonary infiltrates with some worsening consolidation of the left lower lobe. Meanwhile, the patient is still receiving TPN for nutritional support. He is unable to take oral intake because of his extreme BiPAP dependence. D-dimer is at 4.06 and the patient is on Lovenox 45 mg subcu every 12 hours. He has also LDH level of 962, CRP level is at 8.3, electrolytes are all within normal limits. Unfortunately, he is still doing poorly and is not showing any signs of recovery. He remains on Levemir insulin 10 units daily along with a sliding- scale coverage. He has a Kwan catheter in place. Respiratory rate is in the mid 30s. He is quite lethargic. 2020, the patient continues to be on a BiPAP at a pressure of 16/6 with an FiO2 of 95%. Awake and alert. Slightly tachypneic. Pulse ox is 89% on the above-mentioned BiPAP setting. Minute ventilation as 40 L as we were seeing the patient and his minute ventilation with a. Otherwise his aspirate has been in the high 20s low 30 range. Whenever he sleeps, his respiratory rate goes down. He wants to stay on the BiPAP and he doesn't want to transition to the high flow oxygen today. Repeat chest x-ray was done and the findings are essentially stable with diffuse bilateral pulmonary infiltrates. No evidence of any pneumothorax. No interval progression or worsening his chest x-ray findings. Meanwhile, his blood work shows no major abnormalities. Blood sugars are not elevated. The patient remains on TPN for nutrition support and the patient remains on Decadron IV every 24 hours on Lovenox 45 mg subcu every 12 hours. D- dimer level is at 4.06. Patient was reevaluated today on 07/09/2020, remains on high flow oxygen using airvo and non-rebreather mask. Patient is on 94% FiO2 and 60 L flow per minute. Patient is about the same, not getting any better not getting any worse. He is noted to be slightly tachypneic. Has BiPAP at bedside, but not using it at present. Basic metabolic profile today is normal., Last LDH was trending down to 962 and C-reactive protein 8.3 Patient was reevaluated today on 07/10/2020, remains on high flow oxygen using Airvo and nonrebreather mask. O2 saturation remains marginal in the low 90s and high 80s patient denies being short of breath. He has intermittent cough. His d-dimer is 5.4 to today. Not significantly changed over the last 1 week. Basic metabolic profile is normal renal profile is normal. His last C-reactive protein was 8.3 and his LDH was 962 from 2 days ago. Chest x-ray from 07/08 continues to show persistent bilateral multifocal and comfortable in particular opacities consistent with COVID-19 infection. Patient was reevaluated today on 07/11/2020, remains on high flow oxygen, patient is on nonrebreather plus airvo 90% FiO2 and 60 L flow, O2 saturation remains marginal in the mid to high 80s. Patient in mild distress, but overall he thinks he is getting a bit better. Tried today to change position on the patient and see if his oxygenation improves, did not seem to make much of a difference, and the patient could not lay prone. He had even some difficulty laying on the right side. Remained generally weak, not making significant progress since admission. His CBC looks relatively normal his d-dimer is 5 renal profile is normal. Electrolytes are normal. Last chest x-ray from 2 days ago was consistent with COVID-19 pneumonia. On 07/12/2020 patient seen in follow-up on medical surgical floor, this morning his dyspnea and hypoxia have worsened, he is displaying decreasing oxygen saturations and increasing work of breathing. Patient has been on BiPAP support with pressures of 12 and 6 and 200%, and despite that patient is unable to maintain O2 saturations above 80-82%, he is quite tachypneic. Patient remains on multivitamins, steroids, and Lovenox 45 mg twice daily. He is status post Toci on 07/06/2020. He is receiving nutritional support in the form of TPN, his been unable to take in much by mouth related to his dyspnea, hypoxia, and dependence on high flow oxygen and BiPAP. Stat chest x-ray was obtained showing increasing confluence of airspace disease, and patient's steroids have been switched to Solu-Medrol 60 mg every 6 hours. Today's labs have been reviewed On 07/13/2020 patient seen in follow-up in the intensive care unit, he was trace to the ICU yesterday in view of worsening hypoxia and dyspnea, he is on BiPAP support pressures of 16/8 and FiO2 of 100%, and his pulse ox is 92%, he seems to be comfortable on those settings, breathing comfortably, appears to be in no respiratory distress. He does not tolerate being off the BiPAP and is very much dependent on BiPAP at this time, unable to take any oral meds or oral nutrition, PICC line was inserted in patient continues on TPN for nutritional support at a rate of 85 ML per hour, and lipids on the Thursday schedule, followed by registered dietitian. No other vasoactive drips, no other maintenance drips, hemodynamically he remains stable, he is in sinus mechanism, today's chest x-ray has been reviewed showing improvement in aeration, and patient is currently on IV steroids with Solu-Medrol 60 mg every 6 hours, and he remains on Lovenox 45 mg twice daily, all of his oral medications have been discontinued, and his Lopressor has been switched over to Lopressor IV 20 mg every 6 hours. No complaints of chest discomfort, no cough, lung sounds reveal diffuse crackles. He appears be fairly comfortable. Today's labs have been reviewed showing white blood cell count of 9.0, hemoglobin of 13.9, his d-dimer is improving and is down to 1.84, sodium is 135, the rest of the electrolytes were within normal limits, and BUN is up slightly, at 42, creatinine remains in the normal range of 0.71. LDH is 1492 uptrended a bit from previous value, and CRP is 0.8 On 07/14/2020 patient is seen in follow-up in intensive care unit, she remained BiPAP dependent at this time, BiPAP pressures of 16/8, and FiO2 100%, however he tolerates BiPAP support quite well, no agitation, no attempts to remove the mass, he is quite compliant, pulse ox on those settings is ranging from 93-96%, hemodynamically he is stable, has not had any vasopressor support, he is in sinus mechanism with a rate of 67, he is on 0.9 normal saline at a rate of 29 per hour, TPN is infusing at 85 MLS per hour, patient has not been able to come off the BiPAP support long enough to sustain his oral nutrition. He feels thirsty, and his been coming off the BiPAP mask only for oral care and sips of water. He is awake, he is alert oriented 3, denies acute distress, today's chest x-ray shows mixed interstitial and airspace disease within the lungs similar to the prior exam, no major change. Today's labs have been reviewed, doing a d-dimer slightly trending down, down to 1.25, LDH is 1305, down from yesterday, his CRP is normal at 0.7. Blood cultures have shown no growth. He remains on prophylactic dose Lovenox 40 mg daily, remains on Solu-Medrol 60 mg every 6 hours, he is on morphine as needed 2-4 mg every 4 hours for breathlessness and anxiety, and that has been helping him cope with the BiPAP support. No chest discomfort, no nausea vomiting or diarrhea no abdominal pain. On 07/16/2020 patient seen in follow-up in the intensive care unit, patient was able to lift the BiPAP support, and he is currently on Airvo at 60 L and FiO2 of 90% in addition to 100% nonrebreather mask, tolerating it well so far, he is awake and alert, oriented 3, he is able to taken some oral nutrition, no increased dyspnea, he is maintaining O2 saturations at around 90% on the above mentioned oxygen set up, he is afebrile, he is hemodynamically stable, not in any vasopressor support, he is on 0.9 normal saline at a rate of 20 ML per hour, his TPN has been discontinued. Today's chest x-ray shows bilateral interstitial and airspace disease similar in appearance to previous chest x-ray from yesterday. Today's blood work has been reviewed, showing orbital, 10.2, hemoglobin is 12.9, serum sodium is 135, the rest of electrolytes were unremarkable, BUN is 48, creatinine 0.74, his AST is 96, ALT is 182, worsened since yesterday, total bilirubin is 1.4, his LDH is CRP were not repeated today, but or improving on yesterday's labs. All blood cultures have been negative thus far. He remains on daily dose of Lovenox 40 mg daily, IV steroids 60 mg every 6 hours, and sliding scale insulin in addition to Levemir. Vital signs have been stable, no fever or chills, no nausea vomiting or diarrhea. Objective - Vital Signs Vital signs: Vital Signs Temp 98.5 F 07/16/20 04:00 Pulse 59 L 07/16/20 07:00 Resp 25 H 07/16/20 07:00 BP 120/79 07/16/20 07:00 Pulse Ox 90 L 07/16/20 07:00 Intake & Output 07/15/20 07/16/20 07/16/20 18:59 06:59 18:59 Intake Total 1449 1066 240 Output Total 580 650 125 Balance 869 416 115 Intake: IV 1449 346 40 Fat Emulsion 20% 250 ml 189 21 In Empty Bag 1 bag @ 21 mls/hr IV DAILY [facility] Rx#: [id number] Mvi, Adult No.4 with Vit 1020 85 K 10 ml Trace (Conc-1Ml/ Dose) 1 ml Sodium Acetate 50 meq Calcium Gluconate 1 gm Magnesium Sulfate gm 1 gm Sodium Chloride 4Meq/ml Vial 20 meq In Amino Acid 5%-D15w 1,000 ml @ 85 mls/hr IV .BY DURATION ROBERT Rx#: [id number] Sodium Chloride 0.9% 1, 240 240 40 000 ml @ 20 mls/hr IV . Q24H ROBERT Rx#:[id number] Oral 720 200 Output: Urine 580 650 125 Other: Voiding Method Indwelling Catheter Indwelling Catheter Indwelling Catheter - Exam GENERAL EXAM: Alert, very pleasant, 70-year-old white male, on Airvo at 60 L and FiO2 of 90%, in addition to 100% nonrebreather mask maintaining O2 saturations around 90% HEAD: Normocephalic/atraumatic. EYES: Normal reaction of pupils, equal size. Conjunctiva pink, sclera white. NOSE: Clear with pink turbinates. THROAT: No erythema or exudates. NECK: No masses, no JVD, no thyroid enlargement, no adenopathy. CHEST: No chest wall deformity. Symmetrical expansion. LUNGS: Equal air entry with diminished breath sounds bilaterally, with bilateral base crackles CVS: Regular rate and rhythm, normal S1 and S2, no gallops, no murmurs, no rubs ABDOMEN: Soft, nontender. No hepatosplenomegaly, normal bowel sounds, no guarding or rigidity. EXTREMITIES: No clubbing, no edema, no cyanosis, 2+ pulses and upper and lower extremities. MUSCULOSKELETAL: Muscle strength and tone normal. SPINE: No scoliosis or deformity SKIN: No rashes CENTRAL NERVOUS SYSTEM: Alert and oriented -3. No focal deficits, tone is normal in all 4 extremities. PSYCHIATRIC: Alert and oriented -3. Appropriate affect. Intact judgment and insight. - Labs CBC & Chem 7: 07/16/20 03:15 07/16/20 03:15 Labs: Abnormal Lab Results - Last 24 Hours (Table) 07/15/20 07/15/20 07/15/20 Range/Units 12:05 16:52 21:05 RBC (4.30-5.90) m/uL Hgb (13.0-17.5) gm/dL Hct (39.0-53.0) % Plt Count (150-450) k/uL Sodium (137-145) mmol/L BUN (9-20) mg/dL Glucose (74-99) mg/dL POC Glucose (mg/dL) 169 H 241 H 252 H (75-99) mg/dL Total Bilirubin (0.2-1.3) mg/dL AST (17-59) U/L ALT (4-49) U/L Total Protein (6.3-8.2) g/dL Albumin (3.5-5.0) g/dL 07/16/20 07/16/20 07/16/20 Range/Units 03:15 03:15 07:08 RBC 4.12 L (4.30-5.90) m/uL Hgb 12.9 L (13.0-17.5) gm/dL Hct 37.5 L (39.0-53.0) % Plt Count 105 L (150-450) k/uL Sodium 135 L (137-145) mmol/L BUN 48 H (9-20) mg/dL Glucose 72 L (74-99) mg/dL POC Glucose (mg/dL) 141 H (75-99) mg/dL Total Bilirubin 1.4 H (0.2-1.3) mg/dL AST 96 H (17-59) U/L ALT 182 H (4-49) U/L Total Protein 5.2 L (6.3-8.2) g/dL Albumin 2.5 L (3.5-5.0) g/dL Assessment and Plan Plan: Assessment: #1. Acute hypoxemic respiratory failure secondary to COVID-19 pneumonia. Outside the window for Remdesivir, that is post Toci 800 mg on 07/06/2020 for worsening hypoxic respiratory failure, patient remains very much BiPAP dependent and has not tolerated transitioning to high flow oxygen very well, he required transfer to the intensive care unit today on 07/12/2020 and current BiPAP settings of 14/8 and FiO2 of 100%. Today on 07/16/2020 patient came off BiPAP support and is currently on irritable at 60 L and FiO2 of 90% in addition to 100% nonrebreather mask #2. Increased inflammatory markers related to the above, improving #3. Increased d-dimer, lower extremity Dopplers showed no evidence of DVT, patient remains on Lovenox 45 mg twice daily and a d-dimer is improving #4. History of atrial fibrillation, paroxysmal and patient is not on any chronic anticoagulation #5. Coronary artery disease with previous stent placement #6. GERD/reflux #7. Hypertension #8. Hyperlipidemia #9. History of rheumatic fever #10. History of gout #11. Acute kidney injury recovered #12. Decreased oral intake and inability to sustain oral intake related to BiPAP device, and dependence on noninvasive ventilatory support, patient is currently on TPN for nutritional support. TPN has been discontinued, patient is tolerating oral diet today, he is off BiPAP support on 07/16/2020 Plan: Maintained on Airvo and nonrebreather mask Titrate FiO2 to keep O2 sats ration is at or above 90% Go back on BiPAP if becomes fatigued Continue Solu-Medrol 60 mg every 6 hours Decrease Lovenox to 40 mg daily, d-dimer is improving May use morphine for breathlessness and discomfort, small dose Ativan if needed Chest x-ray shows findings similar to prior exam, no major change Overall clinically appears to be slightly better, slightly improved O2 saturations Continue close monitoring in the intensive care unit Overall prognosis is guarded I performed a history & physical examination of the patient and discussed their management with my nurse practitioner, Constance El. I reviewed the nurse practitioner's note and agree with the documented findings and plan of care. Lung sounds are positive for bibasilar crackles. The findings and the impression was discussed with the patient. I attest to the documentation by the nurse practitioner. Time with Patient: Greater than 30
[2020-07-16 11:13] LABS: Glucose,Whole Blood 117 mg/dL (75-99)
--- NOTE | 2020-07-16 13:10 | P.PN ---
Subjective Progress Note Date: 07/16/20 This is 70-year-old gentleman with past medical history of hypertension, and gastroesophageal reflux disease, CAD, WI, chronic back pain with history of laminectomy and multiple other medical issues presented to the ER with history of fevers ,worsening shortness of breath. Patient had seen his PCP last week on Thursday the and was recommended to go for his covid test. Patient apparently never went for his test. Yesterday completed a tele visit with his PCP, Dr. Encarnacion, referred to the ER. Patient tested positive for Covid infection while in the ER. On admission patient hypoxic with O2 sat of 80% on room air, required nonrebreather to maintain O2 sats in the 90s to 100%. Febrile on admission with temperature 99.9, normal WBC. D-dimer 2.41, sodium 132, BUN 52, creatinine 2.05, ferritin 1556.7 total bili elevated on admission now within normal limits, mildly elevated LFTs, LDH 2411currently 2018, CRP 158.4. Given patient's renal function and respiratory status unable to proceed with CTA of chest or VQ to rule out PE, currently on heparin drip. Chest x-ray reported partially consolidative opacity in the right lung base consistent with acute pneumonic process. Telemetry sinus rhythm with fusion complexes and PACs with left axis deviation. Denies chest pain, palpitations. 06/25/2020 during the night and again this morning patient removing his oxygen, desatting into the high 40s, turning blue, return to 15 L high flow in addition to nonrebreather, O2 sats initially in the high 80s. As the morning progressed, only maintaining O2 sats in the low 80s and transitioned to BiPAP mask. Chest x-ray reported diffuse bilateral patchy infiltrates stable. Denies chest pain, palpitations. Xanax administered for anxiety. Continue to develop more agitation attempting deplorable off mask. 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 Eventually patient required IV push Haldol. Patient now maintaining O2 sat of 94% on 100% BiPAP. Afebrile, WBC 14.8. Creatinine improving, 1.28. 06/26/2020 requiring 100% BiPAP to maintain O2 sats in the low 90s. T-max 102.6. WBC 14.9. Telemetry reporting Sinus Tachycardia with heart rates up into the 120s. Echo reported LV function 40-45% . Potassium 5.2, Renal function improving. Blood sugars controlled. Anxious, agitated, combative at times. Sitter remains at bedside. Receiving when necessary Haldol. Staff reports patient was asking for the bar mayandel, unclear if history of EtOH abuse, with questionable withdrawal. Psychiatry consult in place with recommendations pending. 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 Received Ativan 1 mg IV push. Agitation lessened. Staff reports carmen ent was choking on water. Spiking fevers, T-max 100.5, labs pending. Taking O2 sats of 90 on 60% BiPAP. 06/28/2020 rough night with increased agitation and confusion despite Prolixin and Zyprexa. Reevaluated by psychiatry this morning with medication changes noted and appreciated. Unable to wean from 100% BiPAP, maintaining O2 sats of mid 80s to low 90s. Speech therapy unable to conduct swallow evaluation as patient unable to tolerate being off of BiPAP. Poor oral intake, renal function worsening. Sitter remains at bedside. Afebrile. 06/29/2020 100% BiPAP, maintaining O2 sats in the low 90s. Had a better night with less agitation, received Prolixin. Less confused this morning. Asking for ice chip. Complains of chronic back pain. Discussed CODE STATUS and patient wishes to remain a full code. Denies any chest pain, palpitations. BUN 43, creatinine 1.18. Received PICC line with TPN initiated yesterday. Blood sugars controlled. 07/02/2020 remains on 80% BiPAP, maintaining O2 sats in the high 80s. Minimal reserve-Unable to tolerate being off BiPAP mask . Receiving TPN via PICC line. Reporting that he is hungry.Calm, maintained on Zyprexa, prn Prolixin as per p sychiatry. Did not require Prolixin over the weekend. Sensorium significantly improved. Afebrile. D-dimer, LDH decreased, CRP increased. 07/03/2020 continue on 80% BiPAP, calm, maintaining O2 sats in the mid 90s. Hungry, asking for food, receiving TPN. Also asking for a writing board to co mmunicate easier. 07/04/2020 significant improvement in sensorium .weaned off of BiPAP currently maintaining O2 sats in the high 80s to low 90s on both high flow nasal cannula/nonrebreather. Productive cough. Continues on TPN with bites of food intermittently. Blood sugars ranging from 130 to 225. Continue on Covid cocktail including Decadron. Denies chest pain, palpitations. 07/05/2020 Staff reports patient desatted down into the 70s this morning within minutes of taken off mask (patient had been on 60L high flow nasal cannula and nonrebreather )to have a few bites of oatmeal. Slow recovery and 80% BiPAP mask reapplied. Receiving TPN via PICC line as well. Continues on Covid cocktail. Blood sugars better controlled on low-dose Levemir insulin. T-max 100.5, WBC 8.6. 07/06/2020 Desatted to the low 60s on high flow nasal cannula with nonrebreather. BiPAP 100% maintaining O2 sats of 89%. Maintained on TPN . Continues on Covid cocktail. Inflammatory markers remain elevated. Afebrile, T-max 99. Blood sugars controlled. 07/09/2020 Airvo/NRB, maintaining O2 sats in the high 80s. Afebrile. Blood sugars 160s to 190s. 07/10/2020 currently on high flow nasal cannula 60% and nonrebreather maintaining O2 sats 86-80%. Reports mild anxiety this morning. Afebrile. Labs pending. 07/16/2020 weaned off BiPAP today, currently maintained on 90% FiO2 Airvo + NRB maintaining O2 sats in the high 80s to low 90s.Chest x-ray reports bilateral interstitial and airspace disease similar to prior exam. Hemoglobin 12.9, Platelets 105. TPN discontinued, consistent carb diet initiated. Afebrile, normal WBC, blood cultures reporting no growth. T bili, AST, ALT worsened. Albumin 2.5. Continues on bronchodilators, IV steroids with blood sugars better controlled this morning. Objective - Vital Signs Vital signs: Vital Signs Temp 97.8 F 07/16/20 08:00 Pulse 58 L 07/16/20 11:00 Resp 19 07/16/20 11:00 BP 120/77 07/16/20 11:00 Pulse Ox 90 L 07/16/20 11:00 Intake & Output 07/15/20 07/16/20 07/16/20 18:59 06:59 18:59 Intake Total 1449 1066 300 Output Total 580 650 305 Balance 869 416 -5 Intake: IV 1449 346 100 Fat Emulsion 20% 250 ml 189 21 In Empty Bag 1 bag @ 21 mls/hr IV DAILY [facility] Rx#: [id number] Mvi, Adult No.4 with Vit 1020 85 K 10 ml Trace (Conc-1Ml/ Dose) 1 ml Sodium Acetate 50 meq Calcium Gluconate 1 gm Magnesium Sulfate gm 1 gm Sodium Chloride 4Meq/ml Vial 20 meq In Amino Acid 5%-D15w 1,000 ml @ 85 mls/hr IV .BY DURATION ROBERT Rx#: [id number] Sodium Chloride 0.9% 1, 240 240 100 000 ml @ 20 mls/hr IV . Q24H [facility] Rx#:[id number] Oral 720 200 Output: Urine 580 650 305 Other: Voiding Method Indwelling Catheter Indwelling Catheter Indwelling Catheter - Exam GENERAL: Sitting up in bed, alert and oriented 3 CHEST EXAMINATION: Symmetrical expansion. Diminished, bibasilar crackles CARDIAC: Normal S1, S2 with no gallops. No murmurs ABDOMEN: Soft. Bowel sounds normal. No guarding. Positive bowel sounds Extremities: no edema. No clubbing or cyanosis. No calf pain. Neurologically: Cranial nerves II through XII grossly intact , no focal deficits , Moving all extremities. Skin: Warm and dry, no rashes. - Labs CBC & Chem 7: 07/16/20 03:15 07/16/20 03:15 Labs: Abnormal Lab Results - Last 24 Hours (Table) 07/15/20 07/15/20 07/16/20 Range/Units 16:52 21:05 03:15 RBC (4.30-5.90) m/uL Hgb (13.0-17.5) gm/dL Hct (39.0-53.0) % Plt Count (150-450) k/uL Sodium 135 L (137-145) mmol/L BUN 48 H (9-20) mg/dL Glucose 72 L (74-99) mg/dL POC Glucose (mg/dL) 241 H 252 H (75-99) mg/dL Total Bilirubin 1.4 H (0.2-1.3) mg/dL AST 96 H (17-59) U/L ALT 182 H (4-49) U/L Total Protein 5.2 L (6.3-8.2) g/dL Albumin 2.5 L (3.5-5.0) g/dL 07/16/20 07/16/20 07/16/20 Range/Units 03:15 07:08 11:10 RBC 4.12 L (4.30-5.90) m/uL Hgb 12.9 L (13.0-17.5) gm/dL Hct 37.5 L (39.0-53.0) % Plt Count 105 L (150-450) k/uL Sodium (137-145) mmol/L BUN (9-20) mg/dL Glucose (74-99) mg/dL POC Glucose (mg/dL) 141 H 117 H (75-99) mg/dL Total Bilirubin (0.2-1.3) mg/dL AST (17-59) U/L ALT (4-49) U/L Total Protein (6.3-8.2) g/dL Albumin (3.5-5.0) g/dL Assessment and Plan Assessment: Sepsis secondary to Acute Covid -19 pneumonia, status post TOCI Acute hypoxic respiratory failure secondary to the above, Acute delirium, acute metabolic encephalopathy secondary to the above, possibly acute hypoxic encephalopathy, medication induced, steroids, benzos, opiates. Possible steroid psychosis. Significantly improved. Acute renal failure secondary to the above, improving Hyperglycemia, steroid-induced Thrombocytopenia Gastroesophageal reflux disease Chronic paroxysmal atrial fibrillation Chronic systolic CHF, EF 35-40% Coronary artery disease with history of WI,stent placement Former nicotine dependence Hypertension Mild to moderate protein calorie malnutrition , status post TPN Plan: Continue on current medication regime ,monitoring and symptomatic treatment.labs pending .Covid cocktail. Weaned off BiPAP this morning, Titration of FiO2 as per pulmonary. Prognosis guarded given multiple complex medical issues. The impression and plan of care has been dictated as directed. : I performed a history and examination of this patient, discussed the same with the dictator. I agree with the dictator's note ,documented as a scribe. Any additional findings or plans will be noted.
[2020-07-16] MEDS: SODIUM CHLORIDE 0.9% 1,000 ML IV SCH (17:58)
[2020-07-16 18:04] LABS: Glucose,Whole Blood 130 mg/dL (75-99)
[2020-07-16 20:27] LABS: Glucose,Whole Blood 167 mg/dL (75-99)
[2020-07-16] MEDS: FAMOTIDINE 20 MG TAB PO SCH (20:42)
[2020-07-17 05:19] LABS: Basophils % (A) 0 %; Eosinophils % (A) 1 %; HCT 36.9 % (39.0-53.0); HGB 12.5 gm/dL (13.0-17.5); Lymphocytes # (A) 0.4 k/uL (1.0-4.8); Lymphocytes % (A) 4 %; MCHC 33.9 g/dL (31.0-37.0); MCV 91.4 fL (80.0-100.0); Mean Platelet Volume 8.7; Monocytes # (A) 0.5 k/uL (0-1.0); Monocytes % (A) 6 %; Neutrophils # (A) 7.9 k/uL (1.3-7.7); Neutrophils % (A) 89 %; Platelet Count 103 k/uL (150-450); RBC 4.04 m/uL (4.30-5.90); RDW 13.8 % (11.5-15.5); WBC 8.8 k/uL (3.8-10.6)
[2020-07-17 05:45] LABS: ALT 202 U/L (4-49); AST 58 U/L (17-59); African American GFR (CKD) >90 (>60 ml/min/1.73 sqM); Albumin 2.5 g/dL (3.5-5.0); Alkaline Phosphatase 101 U/L (38-126); Anion Gap 4 mmol/L; Blood Urea Nitrogen 49 mg/dL (9-20); C Reactive Protein 0.7 mg/dL (<1.0); Calcium 7.9 mg/dL (8.4-10.2); Carbon Dioxide 26 mmol/L (22-30); Chloride 104 mmol/L (98-107); Creatine Kinase 39 U/L (55-170); Glucose 164 mg/dL (74-99); LDH 1272 U/L (313-618); Magnesium 2.1 mg/dL (1.6-2.3); Non-African American GFR(CKD) >90 (>60 ml/min/1.73 sqM); Phosphorus 3.6 mg/dL (2.5-4.5); Potassium 4.7 mmol/L (3.5-5.1); Sodium 134 mmol/L (137-145); Total Bilirubin 1.1 mg/dL (0.2-1.3)
[2020-07-17] MEDS: INSULIN DETEMIR (LEVEMIR) 100 UNIT/ML SYR SQ SCH (06:43)
[2020-07-17] MEDS: methylPREDNISolone SOD SUCCI 125 MG/2 ML VIAL IV SCH ×3 (06:43→17:11)
[2020-07-17] MEDS: INSULIN ASPART (NovoLOG) 100 UNIT/ML VIAL SQ SCH ×4 (06:44→21:29)
--- NOTE | 2020-07-17 06:56 | XR ---
EXAMINATION TYPE: XR chest 1V portable DATE OF EXAM: 07/17/2020 COMPARISON: 07/16/2020 HISTORY: Shortness of breath TECHNIQUE: Single frontal view of the chest is obtained. FINDINGS: Heart size is stable. Diffuse interstitial pattern bilateral lower lobe infiltrate and sma ll effusion. PICC line stable. No pneumothorax. Hypertrophic change of the spine. Atherosclerotic martin nge aorta. IMPRESSION: Bilateral interstitial and alveolar infiltrates stable.
[2020-07-17] MEDS: ALBUTEROL HFA INHALER INHALATION PRN ×3 (07:09→21:15)
[2020-07-17 08:18] LABS: Glucose,Whole Blood 168 mg/dL (75-99)
[2020-07-17] MEDS: ENOXAPARIN 40 MG/0.4 ML SYRINGE SQ SCH (08:35)
[2020-07-17] MEDS: METOPROLOL TARTRATE 25 MG TAB PO SCH ×2 (08:35→21:29)
[2020-07-17] MEDS: FAMOTIDINE 20 MG TAB PO SCH ×2 (08:35→21:29)
--- NOTE | 2020-07-17 10:14 | P.PN ---
Subjective Progress Note Date: 07/17/20 Principal diagnosis: Acute hypoxic respiratory failure secondary to COVID-19 pneumonia This is a 70-year-old gentleman that was seen in the emergency room on June 21. He was sent into the emergency room after being seen by his primary care doctor because of increasing shortness of breath, and concerns that the patient might have COVID 19. In addition to shortness of breath, the patient states he's been having lots of chest congestion, and is been coughing. When he coughs, it is painful in his chest. He has been sick for at least 2 weeks. In addition, he has muscle aches and joint aches, weakness and fatigue, and fever and chills. Currently, he is on a nonrebreather mask. Saturations are 92%. His primary care physician Dr. Vijay Encarnacion. He was not receiving any IV fluids. His primary medical problems include atrial fibrillation, coronary artery disease, hype rlipidemia, hypertension, gastroesophageal reflux disease, and prior myocardial infarction. The patient is a lifelong nontobacco user. White count is 4.9, hemoglobin 13.5, hematocrit 39.5, platelet count 92,000. PTT 61.3. D-dimer 2.41. Sodium 132, potassium 4.8, chloride 105, CO2 18, anion gap 9, BUN and creatinine 52 and 2.05. Calcium 7.6, AST 156, pO2 102, LDH 2018. C-reactive protein 158. I was not able to look at the chest x-ray. There is apparently a partially occlusive opacity at the right lung base consistent with acute pneumonic process. CT angiogram was not performed. Patient was reevaluated today on 06/23/2020, patient is feeling better today compared to how he felt yesterday. Patient is on high flow cannula running at 15 L/m, his O2 saturation is in the mid to high 80s he is on 100% FiO2 basically. His chest x-ray does not seem to be impressive, he does have consoli dative opacity in the right lung base consistent with acute pneumonic process. Left lung is relatively clear. No significant pulmonary congestion. D-dimer is 2.56. Renal profile is not good enough for performing a CT angiogram of the chest, however I will recommend bilateral venous Doppler on this patient just to make sure we were not dealing with thromboembolic process. Again the patient tells me that his feeling better today compared to how he felt yesterday. Clinically improving. Patient was reevaluated today on 06/24/2020, patient remains on high flow oxygen. He is on 15 L high flow cannula, and his O2 saturations 92% at best. Patient continues to have shortness of breath, intermittent episodes of cough. He has no fever, his vital signs are relatively stable. During my evaluation, patient was constantly coughing. CBC is relatively normal electrolytes are normal BUN is 52 creatinine 1.45. LDH is elevated at 1586. Venous Doppler yesterday was negative. Chest x-ray on admission showed consolidation at the right lung base. I also suspect some consolidation at the left base/retrocardiac area. Progress note dated 06/25/2020. Currently, the patient was on BiPAP and on percent. Earlier today, he desaturated, and the nurses had a hard time getting his saturations back up. We did do a blood gas on the patient. PO2 was 63, pCO2 was 33, pH was 7.44. That was on 100% on the BiPAP. White count 14.8, hemoglobin hematocrit and platelet count all normal. Sodium 136, potassium 4.9, chlorides 107, CO2 20, anion gap 9, BUN 45, creatinine 1.28. Chest x-ray today showed diffuse bilateral patchy infiltrates which are stable. Yesterday, he was on high flow nasal O2 at 15 L/m. Progress note dated 06/26/2020. 70-year-old male, currently on BiPAP, at 16/6 and 80%. His saturations were good, so the FiO2 was dropped from 80% down to 60%. The patient appears to be d oing reasonably well, although he did become somewhat tachypnea today when he was being evaluated here. Saturations are 90% on the 60% FiO2. Temperature is 98.1, and blood pressure 173/104. White count 14.9, and hemoglobin, hematocrit, and platelet count are all normal. Sodium 135, potassium 5.2, chlorides 106, CO2 18, anion gap 11, BUN 38, creatinine 1.23. Chest x-ray from June 25, shows bilateral patchy infiltrates. The patient is seen today 06/27/2020 in follow-up on the regular medical floor. He is currently resting fairly comfortably in bed. He is maintaining O2 saturation in the 90s on BiPAP 16/6 and 60% FiO2. 0.9 normal saline at 50 MLS per hour. Chest x-ray continues to show patchy bilateral infiltrates compatible with superimposed interstitial pneumonia. White count 8.3. Hemoglobin 13.4. Sodium 139. Potassium 5.6. Creatinine 1.13. He is continued on dexamethasone, Xarelto, vitamin supplements. The patient is seen today 06/28/2020 follow-up on the selective care unit. He is currently sitting up in bed. Remains on BiPAP 16/6 and 100% FiO2 maintaining O2 saturation the high 80s low 90s. He is 0.9 normal saline at 50 MLS per hour. He is now on Lovenox, dexamethasone, vitamin supplements. PICC line placed today. The patient is seen today 06/29/2020 follow-up on the selective care unit. He remains on BiPAP 16/6 and 100% FiO2 to maintain O2 saturations in the low 90s. He is afebrile. Currently being nourished with TPN via PICC line. 0.9 normal saline at 50 ML's per hour. Blood cultures reveal no growth. Sodium 140. Potassium 5.1. Creatinine 1.18. Glucose 125. He remains on dexamethasone, Lovenox, vitamin supplements. The patient is seen today 06/30/2020 follow-up on the selective care unit. He is currently resting fairly comfortably in bed. Remains on BiPAP 16/6 at 100% FiO2. He is being nourished with TPN and lipids via PICC line. 0.9 normal saline at 50 MLS per hour. He states he is still quite fatigued but improved today compared to yesterday. Cultures reveal no growth. D-dimer 10.2. Sodium 140. Potassium 5.2. Creatinine 0.99. LDH 1591. C-reactive protein 53.8. He remains on therapeutic Lovenox, dexamethasone, vitamin supplements. The patient is seen today 07/01/2020 in follow-up on the selective care unit. He is resting comfortably in bed. Continued on BiPAP 16/6 and 100% FiO2 to maintain O2 saturations in the high 80s low 90s. Chest x-ray continues to show scattered bilateral lung infiltrates which are stable compared to previous. Sodium 142. Potassium 4.8. Creatinine 0.95. Yesterday's d-dimer 10.23. Remains on therapeutic Lovenox at 100 mg subcu every 12 hours, Decadron, vitamin supplements. On today's evaluation of 07/02/2020 on seeing the patient for a follow-up. The patient remains on a BiPAP at a pressure of 16/6 cm of water and FiO2 of 80%. The patient is also receiving TPN for nutritional support. Therapeutic dose of Lovenox. His d-dimer was quite elevated at 10.2, normal renal function, normal electrolytes, CRP was elevated at 53 with an LDH level of 1591. Most recent chest x-ray from 07/01/2030 showing peripherally located infiltrates bilaterally. The patient is able to generate tidal volume of around 370 on the BiPAP machine. His extremities around 28. He is very weak. He cannot tolerate being off the BiPAP as the patient immediately desaturates even was taken pills or sips of water. He remains on TPN for nutritional support. His symptoms of his blood work today, he has white cell count of 9.8 with a hemoglobin of 12, sodium is 139 and a creatinine of 0.9. His current pulse ox on the percent on above-mentioned BiPAP setting with an FiO2 of 80%.Inflammatory markers are still elevated. D-dimer is at 5 and the patient also has an LDH level of 1009 with a CRP of 143.The chest x-ray from yesterday was showing worsening in the bilateral lower lobe pulmonary infiltrates especially in the right lower lobe. 07/03/2020 the patient remains on BiPAP at a pressure of 16/6 with an FiO2 of 80% and this is essentially the same setting as yesterday. His current vitals show a pulse ox of 94% on above-mentioned ventilator setting. He is afebrile. Breathing is nonlabored. He is still on TPN for nutritional support. His chest x-ray from 07/01/2020 showed peripheral pulmonary infiltrates consistent with Coumadin related pneumonia. No repeat x-rays since then. The patient remains considerably weak. His blood work from today showing no major electrolyte abnormalities. His LDH level was dropping yesterday down to 1009. He is still on Decadron 6 mg IV every 24 hours. He is also on Lovenox 45 mg subcu every 12 hours. On the BiPAP machine, degenerative tidal volumes around 400. 06/03/2020 this morning the patient is off the BiPAP and the patient is currently on a high flow oxygen 60 L with an FiO2 of 86%. The patient is also using 100% nonrebreather facemask. His current pulse ox is around 91%. He has developed skin breaks and ulceration from his BiPAP mask and is currently off the BiPAP. He is resting comfortably in bed. He is still on Lovenox 45 mg subcu every 12 hours. There is on steroids and the patient is receiving De cadron 6 mg IV every 24 hours. The patient is also on TPN for nutritional support. LDH level is at 893 which is lower than the CRP level is down to 50. He is quite weak and debilitated. His white cell count of 6.8 with a hemoglobin of 12.3. No fever. No other new complaints otherwise for now. Most recent d- dimer was at 5 from 07/02/2020. 07/05/2020, the patient remains on BiPAP. The patient was on high flow oxygen yesterday and desaturated and he decompensated and he was switched to a BiPAP at a pressure of 16/6 with an FiO2 of 80%. This occurred when the patient on was trying to have some breakfast earlier this morning. He was on high flow oxygen. He dropped his oxygen saturations significantly and he was very slow in recovery. At that point, he was switched to a BiPAP. His current pulse ox is 90%. He is quite lethargic and somnolent. He is unable to eat and he has TPN for nutritional support. He continues to be on Decadron 6 mg IV every 24 hours. He is also on Lovenox 45 mg subcutaneously every 12 hours. On his blood work, he had a d-dimer of 6.49 which is slightly higher than the white cell count is at 8.6 with a hemoglobin of 12.8. TPN is current to being administered for nutritional support. No other significant events , otherwise his night was uneventful.. The PICC line is in the left upper extremity. The patient also has a Kwan catheter in place. Each in relating a tidal volume of 550 and his respiratory rate is currently in the mid 30s. He seems to be quite comfortable. He is however lethargic. 07/06/2020, the patient is on a BiPAP at a pressure of 16/6 with an FiO2 of 100%. Pulse ox is currently at around 88%. He was having some oxygen desaturations and the patient was brought up to 100% on her BiPAP FiO2. The patient's subsequent reading in a pulse ox in the order of 91%. Remains on TPN for nutritional support. Remains on Decadron 6 mg IV every 24 hours. Remains on Lovenox 45 mg subcu every 12 hours. Blood work shows a d-dimer of 5.64. No electrolyte abnormalities. Condition is essentially unchanged and probably the same as yesterday. Still on Levemir insulin 10 units along with a sliding scale coverage. Blood sugars are adequate for now. He does have a PICC line in left upper extremity. He has a Kwan catheter in place. At around 10:00 this morning, the patient was trialed on the percent nonrebreather with a high flow oxygen at 60 L with an FiO2 of 90%. He desaturated to the low 60s and he was placed accordingly back on BiPAP. 07/07/2020 the patient is a same BiPAP setting which is 60/6 with an FiO2 of 95%. Earlier this morning she was trialed on high flow oxygen with 60 L and FiO2 of 90% and he decompensated and he became profoundly hypoxic and he had to be placed back on the BiPAP. His current pulse ox in the low 90s. He remains on IV Decadron 6 and the rescue 24 hours. He remains on Lovenox 45 mg subcu every 12 hours. Chest x-ray from today is showing stable bilateral interstitial pulmonary infiltrates with some worsening consolidation of the left lower lobe. Meanwhile, the patient is still receiving TPN for nutritional support. He is unable to take oral intake because of his extreme BiPAP dependence. D-dimer is at 4.06 and the patient is on Lovenox 45 mg subcu every 12 hours. He has also LDH level of 962, CRP level is at 8.3, electrolytes are all within normal limits. Unfortunately, he is still doing poorly and is not showing any signs of recovery. He remains on Levemir insulin 10 units daily along with a sliding- scale coverage. He has a Kwan catheter in place. Respiratory rate is in the mid 30s. He is quite lethargic. 2020, the patient continues to be on a BiPAP at a pressure of 16/6 with an FiO2 of 95%. Awake and alert. Slightly tachypneic. Pulse ox is 89% on the above-mentioned BiPAP setting. Minute ventilation as 40 L as we were seeing the patient and his minute ventilation with a. Otherwise his aspirate has been in the high 20s low 30 range. Whenever he sleeps, his respiratory rate goes down. He wants to stay on the BiPAP and he doesn't want to transition to the high flow oxygen today. Repeat chest x-ray was done and the findings are essentially stable with diffuse bilateral pulmonary infiltrates. No evidence of any pneumothorax. No interval progression or worsening his chest x-ray findings. Meanwhile, his blood work shows no major abnormalities. Blood sugars are not elevated. The patient remains on TPN for nutrition support and the patient remains on Decadron IV every 24 hours on Lovenox 45 mg subcu every 12 hours. D- dimer level is at 4.06. Patient was reevaluated today on 07/09/2020, remains on high flow oxygen using airvo and non-rebreather mask. Patient is on 94% FiO2 and 60 L flow per minute. Patient is about the same, not getting any better not getting any worse. He is noted to be slightly tachypneic. Has BiPAP at bedside, but not using it at present. Basic metabolic profile today is normal., Last LDH was trending down to 962 and C-reactive protein 8.3 Patient was reevaluated today on 07/10/2020, remains on high flow oxygen using Airvo and nonrebreather mask. O2 saturation remains marginal in the low 90s and high 80s patient denies being short of breath. He has intermittent cough. His d-dimer is 5.4 to today. Not significantly changed over the last 1 week. Basic metabolic profile is normal renal profile is normal. His last C-reactive protein was 8.3 and his LDH was 962 from 2 days ago. Chest x-ray from 07/08 continues to show persistent bilateral multifocal and comfortable in particular opacities consistent with COVID-19 infection. Patient was reevaluated today on 07/11/2020, remains on high flow oxygen, patient is on nonrebreather plus airvo 90% FiO2 and 60 L flow, O2 saturation remains marginal in the mid to high 80s. Patient in mild distress, but overall he thinks he is getting a bit better. Tried today to change position on the patient and see if his oxygenation improves, did not seem to make much of a difference, and the patient could not lay prone. He had even some difficulty laying on the right side. Remained generally weak, not making significant progress since admission. His CBC looks relatively normal his d-dimer is 5 renal profile is normal. Electrolytes are normal. Last chest x-ray from 2 days ago was consistent with COVID-19 pneumonia. On 07/12/2020 patient seen in follow-up on medical surgical floor, this morning his dyspnea and hypoxia have worsened, he is displaying decreasing oxygen saturations and increasing work of breathing. Patient has been on BiPAP support with pressures of 12 and 6 and 200%, and despite that patient is unable to maintain O2 saturations above 80-82%, he is quite tachypneic. Patient remains on multivitamins, steroids, and Lovenox 45 mg twice daily. He is status post Toci on 07/06/2020. He is receiving nutritional support in the form of TPN, his been unable to take in much by mouth related to his dyspnea, hypoxia, and dependence on high flow oxygen and BiPAP. Stat chest x-ray was obtained showing increasing confluence of airspace disease, and patient's steroids have been switched to Solu-Medrol 60 mg every 6 hours. Today's labs have been reviewed On 07/13/2020 patient seen in follow-up in the intensive care unit, he was trace to the ICU yesterday in view of worsening hypoxia and dyspnea, he is on BiPAP support pressures of 16/8 and FiO2 of 100%, and his pulse ox is 92%, he seems to be comfortable on those settings, breathing comfortably, appears to be in no respiratory distress. He does not tolerate being off the BiPAP and is very much dependent on BiPAP at this time, unable to take any oral meds or oral nutrition, PICC line was inserted in patient continues on TPN for nutritional support at a rate of 85 ML per hour, and lipids on the Thursday schedule, followed by registered dietitian. No other vasoactive drips, no other maintenance drips, hemodynamically he remains stable, he is in sinus mechanism, today's chest x-ray has been reviewed showing improvement in aeration, and patient is currently on IV steroids with Solu-Medrol 60 mg every 6 hours, and he remains on Lovenox 45 mg twice daily, all of his oral medications have been discontinued, and his Lopressor has been switched over to Lopressor IV 20 mg every 6 hours. No complaints of chest discomfort, no cough, lung sounds reveal diffuse crackles. He appears be fairly comfortable. Today's labs have been reviewed showing white blood cell count of 9.0, hemoglobin of 13.9, his d-dimer is improving and is down to 1.84, sodium is 135, the rest of the electrolytes were within normal limits, and BUN is up slightly, at 42, creatinine remains in the normal range of 0.71. LDH is 1492 uptrended a bit from previous value, and CRP is 0.8 On 07/14/2020 patient is seen in follow-up in intensive care unit, she remained BiPAP dependent at this time, BiPAP pressures of 16/8, and FiO2 100%, however he tolerates BiPAP support quite well, no agitation, no attempts to remove the mass, he is quite compliant, pulse ox on those settings is ranging from 93-96%, hemodynamically he is stable, has not had any vasopressor support, he is in sinus mechanism with a rate of 67, he is on 0.9 normal saline at a rate of 29 per hour, TPN is infusing at 85 MLS per hour, patient has not been able to come off the BiPAP support long enough to sustain his oral nutrition. He feels thirsty, and his been coming off the BiPAP mask only for oral care and sips of water. He is awake, he is alert oriented 3, denies acute distress, today's chest x-ray shows mixed interstitial and airspace disease within the lungs similar to the prior exam, no major change. Today's labs have been reviewed, doing a d-dimer slightly trending down, down to 1.25, LDH is 1305, down from yesterday, his CRP is normal at 0.7. Blood cultures have shown no growth. He remains on prophylactic dose Lovenox 40 mg daily, remains on Solu-Medrol 60 mg every 6 hours, he is on morphine as needed 2-4 mg every 4 hours for breathlessness and anxiety, and that has been helping him cope with the BiPAP support. No chest discomfort, no nausea vomiting or diarrhea no abdominal pain. On 07/16/2020 patient seen in follow-up in the intensive care unit, patient was able to lift the BiPAP support, and he is currently on Airvo at 60 L and FiO2 of 90% in addition to 100% nonrebreather mask, tolerating it well so far, he is awake and alert, oriented 3, he is able to taken some oral nutrition, no increased dyspnea, he is maintaining O2 saturations at around 90% on the above mentioned oxygen set up, he is afebrile, he is hemodynamically stable, not in any vasopressor support, he is on 0.9 normal saline at a rate of 20 ML per hour, his TPN has been discontinued. Today's chest x-ray shows bilateral interstitial and airspace disease similar in appearance to previous chest x-ray from yesterday. Today's blood work has been reviewed, showing orbital, 10.2, hemoglobin is 12.9, serum sodium is 135, the rest of electrolytes were unremarkable, BUN is 48, creatinine 0.74, his AST is 96, ALT is 182, worsened since yesterday, total bilirubin is 1.4, his LDH is CRP were not repeated today, but or improving on yesterday's labs. All blood cultures have been negative thus far. He remains on daily dose of Lovenox 40 mg daily, IV steroids 60 mg every 6 hours, and sliding scale insulin in addition to Levemir. Vital signs have been stable, no fever or chills, no nausea vomiting or diarrhea. On 07/17/2020 patient seen in follow-up in intensive care unit, she remains on Airvo at 60 L and FiO2 of 90% in addition to 100% nonrebreather mask and he is maintaining O2 saturations between 86-92%, he is breathing comfortably, no increased dyspnea or cough, vital signs have been stable, he has been afebrile. He is on 0.9 normal seen at 20 ML per hour, no other drips. Tolerating oral intake, TPN has been discontinued, today's labs have been reviewed showing white blood cell count 8.8, hemoglobin of 12.5, d-dimer is 1.48, sodium is 134, there is the rest of the electrolytes are unremarkable, BUN is 49 creatinine 0.83, LDH is 1279, CK is 39, CRP 0.7, laboratory markers are relatively stable. His cultures have been reviewed, all blood cultures have remained negative. He remains on Lovenox 40 mg daily, and IV Solu-Medrol at 60 mg every 6 hours Objective - Vital Signs Vital signs: Vital Signs Temp 97.7 F 07/17/20 08:00 Pulse 62 07/17/20 09:00 Resp 20 07/17/20 09:00 BP 127/88 07/17/20 09:00 Pulse Ox 87 L 07/17/20 09:00 Intake & Output 07/16/20 07/17/20 07/17/20 18:59 06:59 18:59 Intake Total 840 960 40 Output Total 795 1025 135 Balance 45 -65 -95 Weight 94 kg 94.4 kg Intake: IV 240 240 40 Sodium Chloride 0.9% 1, 240 240 40 000 ml @ 20 mls/hr IV . Q24H [facility] Rx#:[id number] Oral 600 720 Output: Urine 795 1025 135 Other: Voiding Method Indwelling Catheter Indwelling Catheter Indwelling Catheter - Exam GENERAL EXAM: Alert, very pleasant, 70-year-old white male, on Airvo at 60 L and FiO2 of 90%, in addition to 100% nonrebreather mask maintaining O2 saturations around 92% HEAD: Normocephalic/atraumatic. EYES: Normal reaction of pupils, equal size. Conjunctiva pink, sclera white. NOSE: Clear with pink turbinates. THROAT: No erythema or exudates. NECK: No masses, no JVD, no thyroid enlargement, no adenopathy. CHEST: No chest wall deformity. Symmetrical expansion. LUNGS: Equal air entry with diminished breath sounds bilaterally, with bilateral base crackles CVS: Regular rate and rhythm, normal S1 and S2, no gallops, no murmurs, no rubs ABDOMEN: Soft, nontender. No hepatosplenomegaly, normal bowel sounds, no guarding or rigidity. EXTREMITIES: No clubbing, no edema, no cyanosis, 2+ pulses and upper and lower extremities. MUSCULOSKELETAL: Muscle strength and tone normal. SPINE: No scoliosis or deformity SKIN: No rashes CENTRAL NERVOUS SYSTEM: Alert and oriented -3. No focal deficits, tone is normal in all 4 extremities. PSYCHIATRIC: Alert and oriented -3. Appropriate affect. Intact judgment and insight. - Labs CBC & Chem 7: 07/17/20 04:15 07/17/20 04:15 Labs: Abnormal Lab Results - Last 24 Hours (Table) 07/16/20 07/16/20 07/16/20 Range/Units 11:10 18:02 20:25 RBC (4.30-5.90) m/uL Hgb (13.0-17.5) gm/dL Hct (39.0-53.0) % Plt Count (150-450) k/uL Neutrophils # (1.3-7.7) k/uL Lymphocytes # (1.0-4.8) k/uL D-Dimer (<0.60) mg/L FEU Sodium (137-145) mmol/L BUN (9-20) mg/dL Glucose (74-99) mg/dL POC Glucose (mg/dL) 117 H 130 H 167 H (75-99) mg/dL Calcium (8.4-10.2) mg/dL ALT (4-49) U/L Lactate Dehydrogenase (313-618) U/L Creatine Kinase (55-170) U/L Total Protein (6.3-8.2) g/dL Albumin (3.5-5.0) g/dL 07/17/20 07/17/20 07/17/20 Range/Units 04:15 04:15 04:15 RBC 4.04 L (4.30-5.90) m/uL Hgb 12.5 L (13.0-17.5) gm/dL Hct 36.9 L (39.0-53.0) % Plt Count 103 L (150-450) k/uL Neutrophils # 7.9 H (1.3-7.7) k/uL Lymphocytes # 0.4 L (1.0-4.8) k/uL D-Dimer 1.48 H (<0.60) mg/L FEU Sodium 134 L (137-145) mmol/L BUN 49 H (9-20) mg/dL Glucose 164 H (74-99) mg/dL POC Glucose (mg/dL) (75-99) mg/dL Calcium 7.9 L (8.4-10.2) mg/dL ALT 202 H (4-49) U/L Lactate Dehydrogenase 1272 H (313-618) U/L Creatine Kinase 39 L (55-170) U/L Total Protein 5.0 L (6.3-8.2) g/dL Albumin 2.5 L (3.5-5.0) g/dL 07/17/20 Range/Units 06:37 RBC (4.30-5.90) m/uL Hgb (13.0-17.5) gm/dL Hct (39.0-53.0) % Plt Count (150-450) k/uL Neutrophils # (1.3-7.7) k/uL Lymphocytes # (1.0-4.8) k/uL D-Dimer (<0.60) mg/L FEU Sodium (137-145) mmol/L BUN (9-20) mg/dL Glucose (74-99) mg/dL POC Glucose (mg/dL) 168 H (75-99) mg/dL Calcium (8.4-10.2) mg/dL ALT (4-49) U/L Lactate Dehydrogenase (313-618) U/L Creatine Kinase (55-170) U/L Total Protein (6.3-8.2) g/dL Albumin (3.5-5.0) g/dL Assessment and Plan Plan: Assessment: #1. Acute hypoxemic respiratory failure secondary to COVID-19 pneumonia. O utside the window for Remdesivir, that is post Toci 800 mg on 07/06/2020 for worsening hypoxic respiratory failure, patient remains very much BiPAP dependent and has not tolerated transitioning to high flow oxygen very well, he required transfer to the intensive care unit today on 07/12/2020 and current BiPAP settings of 14/8 and FiO2 of 100%. Today on 07/16/2020 patient came off BiPAP support and is currently on irritable at 60 L and FiO2 of 90% in addition to 100% nonrebreather mask #2. Increased inflammatory markers related to the above, improving #3. Increased d-dimer, lower extremity Dopplers showed no evidence of DVT, patient remains on Lovenox 45 mg twice daily and a d-dimer is improving #4. History of atrial fibrillation, paroxysmal and patient is not on any chronic anticoagulation #5. Coronary artery disease with previous stent placement #6. GERD/reflux #7. Hypertension #8. Hyperlipidemia #9. History of rheumatic fever #10. History of gout #11. Acute kidney injury recovered #12. Decreased oral intake and inability to sustain oral intake related to BiPA P device, and dependence on noninvasive ventilatory support, patient is currently on TPN for nutritional support. TPN has been discontinued, patient is tolerating oral diet today, he is off BiPAP support on 07/16/2020 Plan: Maintained on Airvo and nonrebreather mask Titrate FiO2 to keep O2 sats ration is at or above 90% May utilize BiPAP if develops respiratory fatigue Continue Solu-Medrol 60 mg every 6 hours Decrease Lovenox to 40 mg daily, d-dimer is improving Provide incentive spirometer Encourage to sit up in the chair Overall clinically appears to be slightly improved O2 saturations Continue close monitoring in the intensive care unit Overall prognosis is guarded I performed a history & physical examination of the patient and discussed their management with my nurse practitioner, Constance El. I reviewed the nurse practitioner's note and agree with the documented findings and plan of care. Lung sounds are positive for bibasilar crackles. The findings and the impression was discussed with the patient. I attest to the documentation by the nurse practitioner. Time with Patient: Greater than 30
[2020-07-17] MEDS: MORPHINE SULFATE 2 MG/ML SYRINGE IVP PRN (10:30)
[2020-07-17 11:16] LABS: Ferritin 1138.4 ng/mL (22.0-322.0)
[2020-07-17 11:23] LABS: Glucose,Whole Blood 117 mg/dL (75-99)
--- NOTE | 2020-07-17 13:59 | P.PN ---
Subjective Progress Note Date: 07/17/20 This is 70-year-old gentleman with past medical history of hypertension, and gastroesophageal reflux disease, CAD, OR, chronic back pain with history of laminectomy and multiple other medical issues presented to the ER with history of fevers ,worsening shortness of breath. Patient had seen his PCP last week on Thursday the and was recommended to go for his covid test. Patient apparently never went for his test. Yesterday completed a tele visit with his PCP, Dr. Encarnacion, referred to the ER. Patient tested positive for Covid infection while in the ER. On admission patient hypoxic with O2 sat of 80% on room air, required nonrebreather to maintain O2 sats in the 90s to 100%. Febrile on admission with temperature 99.9, normal WBC. D-dimer 2.41, sodium 132, BUN 52, creatinine 2.05, ferritin 1556.7 total bili elevated on admission now within normal limits, mildly elevated LFTs, LDH 2411currently 2018, CRP 158.4. Given patient's renal function and respiratory status unable to proceed with CTA of chest or VQ to rule out PE, currently on heparin drip. Chest x-ray reported partially consolidative opacity in the right lung base consistent with acute pneumonic process. Telemetry sinus rhythm with fusion complexes and PACs with left axis deviation. Denies chest pain, palpitations. 06/25/2020 during the night and again this morning patient removing his oxygen, desatting into the high 40s, turning blue, return to 15 L high flow in addition to nonrebreather, O2 sats initially in the high 80s. As the morning progressed, only maintaining O2 sats in the low 80s and transitioned to BiPAP mask. Chest x-ray reported diffuse bilateral patchy infiltrates stable. Denies chest pain, palpitations. Xanax administered for anxiety. Continue to develop more agitation attempting deplorable off mask. manager care placed in room. Eventually patient required IV push Haldol. Patient now maintaining O2 sat of 94% on 100% BiPAP. Afebrile, WBC 14.8. Creatinine improving, 1.28. 06/26/2020 requiring 100% BiPAP to maintain O2 sats in the low 90s. T-max 102.6. WBC 14.9. Telemetry reporting Sinus Tachycardia with heart rates up into the 120s. Echo reported LV function 40-45% . Potassium 5.2, Renal function improving. Blood sugars controlled. Anxious, agitated, combative at times. Sitter remains at bedside. Receiving when necessary Haldol. Staff reports patient was asking for the bar mayandel, unclear if history of EtOH abuse, with questionable withdrawal. Psychiatry consult in place with recommendations pending. 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 Received Ativan 1 mg IV push. Agitation lessened. Staff reports carmen ent was choking on water. Spiking fevers, T-max 100.5, labs pending. Taking O2 sats of 90 on 60% BiPAP. 06/28/2020 rough night with increased agitation and confusion despite Prolixin and Zyprexa. Reevaluated by psychiatry this morning with medication changes noted and appreciated. Unable to wean from 100% BiPAP, maintaining O2 sats of mid 80s to low 90s. Speech therapy unable to conduct swallow evaluation as patient unable to tolerate being off of BiPAP. Poor oral intake, renal function worsening. Sitter remains at bedside. Afebrile. 06/29/2020 100% BiPAP, maintaining O2 sats in the low 90s. Had a better night with less agitation, received Prolixin. Less confused this morning. Asking for ice chip. Complains of chronic back pain. Discussed CODE STATUS and patient wishes to remain a full code. Denies any chest pain, palpitations. BUN 43, creatinine 1.18. Received PICC line with TPN initiated yesterday. Blood sugars controlled. 07/02/2020 remains on 80% BiPAP, maintaining O2 sats in the high 80s. Minimal reserve-Unable to tolerate being off BiPAP mask . Receiving TPN via PICC line. Reporting that he is hungry.Calm, maintained on Zyprexa, prn Prolixin as per p sychiatry. Did not require Prolixin over the weekend. Sensorium significantly improved. Afebrile. D-dimer, LDH decreased, CRP increased. 07/03/2020 continue on 80% BiPAP, calm, maintaining O2 sats in the mid 90s. Hungry, asking for food, receiving TPN. Also asking for a writing board to co mmunicate easier. 07/04/2020 significant improvement in sensorium .weaned off of BiPAP currently maintaining O2 sats in the high 80s to low 90s on both high flow nasal cannula/nonrebreather. Productive cough. Continues on TPN with bites of food intermittently. Blood sugars ranging from 130 to 225. Continue on Covid cocktail including Decadron. Denies chest pain, palpitations. 07/05/2020 Staff reports patient desatted down into the 70s this morning within minutes of taken off mask (patient had been on 60L high flow nasal cannula and nonrebreather )to have a few bites of oatmeal. Slow recovery and 80% BiPAP mask reapplied. Receiving TPN via PICC line as well. Continues on Covid cocktail. Blood sugars better controlled on low-dose Levemir insulin. T-max 100.5, WBC 8.6. 07/06/2020 Desatted to the low 60s on high flow nasal cannula with nonrebreather. BiPAP 100% maintaining O2 sats of 89%. Maintained on TPN . Continues on Covid cocktail. Inflammatory markers remain elevated. Afebrile, T-max 99. Blood sugars controlled. 07/09/2020 Airvo/NRB, maintaining O2 sats in the high 80s. Afebrile. Blood sugars 160s to 190s. 07/10/2020 currently on high flow nasal cannula 60% and nonrebreather maintaining O2 sats 86-80%. Reports mild anxiety this morning. Afebrile. Labs pending. 07/16/2020 weaned off BiPAP today, currently maintained on 90% FiO2 Airvo + NRB maintaining O2 sats in the high 80s to low 90s.Chest x-ray reports bilateral interstitial and airspace disease similar to prior exam. Hemoglobin 12.9, Platelets 105. TPN discontinued, consistent carb diet initiated. Afebrile, normal WBC, blood cultures reporting no growth. T bili, AST, ALT worsened. Albumin 2.5. Continues on bronchodilators, IV steroids with blood sugars better controlled this morning. 07/17/2020 Maintained on FiO2 85% with O2 sats of 89-91%. Chest x-ray reporting stable bilateral interstitial and alveolar infiltrates. Sitting up in chair,teary-eyed over finally getting out of bed. Consuming 50% of breakfast with no nausea vomiting or diarrhea. Blood sugars controlled. Passing flatus. Mild delirium reported by staff, will re-initiate Zyprexa,as previously recommended per psychiatry. Afebrile, WBC 8.8. Hemoglobin 12.5, platelets 103. D-dimer was 0.48, sodium 134, BUN 29, creatinine 0.83. ALT 202. Ferritin decreased to 1138.4, CK 39, CRP 0.7. Objective - Vital Signs Vital signs: Vital Signs Temp 97.7 F 07/17/20 08:00 Pulse 48 L 07/17/20 10:00 Resp 18 07/17/20 10:00 BP 129/79 07/17/20 10:00 Pulse Ox 90 L 07/17/20 10:00 Intake & Output 07/16/20 07/17/20 07/17/20 18:59 06:59 18:59 Intake Total 840 960 80 Output Total 795 1025 275 Balance 45 -65 -195 Weight 94 kg 94.4 kg Intake: IV 240 240 80 Sodium Chloride 0.9% 1, 240 240 80 000 ml @ 20 mls/hr IV . Q24H [facility] Rx#:[id number] Oral 600 720 Output: Urine 795 1025 275 Other: Voiding Method Indwelling Catheter Indwelling Catheter Indwelling Catheter - Exam GENERAL: Sitting up in chair, alert and oriented 3, mild anxiety CHEST EXAMINATION: Symmetrical expansion. Diminished, bibasilar crackles CARDIAC: Normal S1, S2 with no gallops. No murmurs ABDOMEN: Soft. Bowel sounds normal. No guarding. Positive bowel sounds Extremities: no edema. No clubbing or cyanosis. No calf pain. Neurologically: Cranial nerves II through XII grossly intact , no focal deficits, Moving all extremities. Skin: Warm and dry, no rashes. - Labs CBC & Chem 7: 07/17/20 04:15 07/17/20 04:15 Labs: Abnormal Lab Results - Last 24 Hours (Table) 07/16/20 07/16/20 07/16/20 Range/Units 11:10 18:02 20:25 RBC (4.30-5.90) m/uL Hgb (13.0-17.5) gm/dL Hct (39.0-53.0) % Plt Count (150-450) k/uL Neutrophils # (1.3-7.7) k/uL Lymphocytes # (1.0-4.8) k/uL D-Dimer (<0.60) mg/L FEU Sodium (137-145) mmol/L BUN (9-20) mg/dL Glucose (74-99) mg/dL POC Glucose (mg/dL) 117 H 130 H 167 H (75-99) mg/dL Calcium (8.4-10.2) mg/dL ALT (4-49) U/L Lactate Dehydrogenase (313-618) U/L Creatine Kinase (55-170) U/L Total Protein (6.3-8.2) g/dL Albumin (3.5-5.0) g/dL 07/17/20 07/17/20 07/17/20 Range/Units 04:15 04:15 04:15 RBC 4.04 L (4.30-5.90) m/uL Hgb 12.5 L (13.0-17.5) gm/dL Hct 36.9 L (39.0-53.0) % Plt Count 103 L (150-450) k/uL Neutrophils # 7.9 H (1.3-7.7) k/uL Lymphocytes # 0.4 L (1.0-4.8) k/uL D-Dimer 1.48 H (<0.60) mg/L FEU Sodium 134 L (137-145) mmol/L BUN 49 H (9-20) mg/dL Glucose 164 H (74-99) mg/dL POC Glucose (mg/dL) (75-99) mg/dL Calcium 7.9 L (8.4-10.2) mg/dL ALT 202 H (4-49) U/L Lactate Dehydrogenase 1272 H (313-618) U/L Creatine Kinase 39 L (55-170) U/L Total Protein 5.0 L (6.3-8.2) g/dL Albumin 2.5 L (3.5-5.0) g/dL 07/17/20 Range/Units 06:37 RBC (4.30-5.90) m/uL Hgb (13.0-17.5) gm/dL Hct (39.0-53.0) % Plt Count (150-450) k/uL Neutrophils # (1.3-7.7) k/uL Lymphocytes # (1.0-4.8) k/uL D-Dimer (<0.60) mg/L FEU Sodium (137-145) mmol/L BUN (9-20) mg/dL Glucose (74-99) mg/dL POC Glucose (mg/dL) 168 H (75-99) mg/dL Calcium (8.4-10.2) mg/dL ALT (4-49) U/L Lactate Dehydrogenase (313-618) U/L Creatine Kinase (55-170) U/L Total Protein (6.3-8.2) g/dL Albumin (3.5-5.0) g/dL Assessment and Plan Assessment: Sepsis secondary to Acute Covid -19 pneumonia, status post TOCI Acute hypoxic respiratory failure secondary to the above, Acute delirium, acute metabolic encephalopathy secondary to the above, possibly acute hypoxic encephalopathy, medication induced, steroids, benzos, opiates. Possible steroid psychosis. Significantly improved. Acute renal failure secondary to the above, improving Hyperglycemia, steroid-induced Thrombocytopenia Gastroesophageal reflux disease Chronic paroxysmal atrial fibrillation Chronic systolic CHF, EF 35-40% Coronary artery disease with history of OR,stent placement Former nicotine dependence Hypertension Mild to moderate protein calorie malnutrition , status post TPN Plan: Continue on current medication regime ,monitoring and symptomatic treatment.labs pending .Zyprexa resumed for mild delirium.Covid cocktail. Titration of FiO2 as per pulmonary. Prognosis guarded given multiple complex medical issues. The impression and plan of care has been dictated as directed. : I performed a history and examination of this patient, discussed the same with the dictator. I agree with the dictator's note ,documented as a scribe. Any additional findings or plans will be noted.
[2020-07-17 17:10] LABS: Glucose,Whole Blood 97 mg/dL (75-99)
[2020-07-17] MEDS: SODIUM CHLORIDE 0.9% 1,000 ML IV SCH (17:24)
[2020-07-17 21:19] LABS: Glucose,Whole Blood 129 mg/dL (75-99)
[2020-07-17] MEDS: OLANZapine 7.5 MG TAB PO SCH (21:29)
[2020-07-18] MEDS: methylPREDNISolone SOD SUCCI 125 MG/2 ML VIAL IV SCH ×4 (00:13→19:06)
[2020-07-18 04:46] LABS: ALT 163 U/L (4-49); AST 40 U/L (17-59); African American GFR (CKD) >90 (>60 ml/min/1.73 sqM); Albumin 2.7 g/dL (3.5-5.0); Alkaline Phosphatase 96 U/L (38-126); Anion Gap 4 mmol/L; Blood Urea Nitrogen 50 mg/dL (9-20); Calcium 8.4 mg/dL (8.4-10.2); Carbon Dioxide 25 mmol/L (22-30); Chloride 105 mmol/L (98-107); Glucose 136 mg/dL (74-99); Non-African American GFR(CKD) 89 (>60 ml/min/1.73 sqM); Potassium 5.2 mmol/L (3.5-5.1); Sodium 134 mmol/L (137-145); Total Protein 5.3 g/dL (6.3-8.2)
[2020-07-18 04:56] LABS: Basophils % (A) 0 %; Eosinophils % (A) 0 %; HCT 41.4 % (39.0-53.0); HGB 13.4 gm/dL (13.0-17.5); Lymphocytes # (A) 0.4 k/uL (1.0-4.8); Lymphocytes % (A) 5 %; MCH 29.8 pg (25.0-35.0); MCHC 32.2 g/dL (31.0-37.0); MCV 92.3 fL (80.0-100.0); Mean Platelet Volume 9.2; Monocytes # (A) 0.5 k/uL (0-1.0); Monocytes % (A) 7 %; Neutrophils # (A) 6.6 k/uL (1.3-7.7); RBC 4.49 m/uL (4.30-5.90); RDW 14.5 % (11.5-15.5); WBC 7.5 k/uL (3.8-10.6)
[2020-07-18] MEDS: INSULIN ASPART (NovoLOG) 100 UNIT/ML VIAL SQ SCH ×4 (06:52→19:55)
[2020-07-18 06:53] LABS: Glucose,Whole Blood 115 mg/dL (75-99)
[2020-07-18] MEDS: INSULIN DETEMIR (LEVEMIR) 100 UNIT/ML SYR SQ SCH (06:57)
[2020-07-18 07:08] LABS: Platelet Count 94 k/uL (150-450)
[2020-07-18] MEDS: ALBUTEROL HFA INHALER INHALATION PRN ×3 (07:31→16:05)
[2020-07-18] MEDS: METOPROLOL TARTRATE 25 MG TAB PO SCH ×2 (09:36→19:55)
[2020-07-18] MEDS: FAMOTIDINE 20 MG TAB PO SCH ×2 (09:36→19:55)
[2020-07-18] MEDS: ENOXAPARIN 40 MG/0.4 ML SYRINGE SQ SCH (09:36)
--- NOTE | 2020-07-18 10:24 | P.PN ---
Subjective Progress Note Date: 07/18/20 This is 70-year-old gentleman with past medical history of hypertension, and gastroesophageal reflux disease, CAD, NM, chronic back pain with history of laminectomy and multiple other medical issues presented to the ER with history of fevers ,worsening shortness of breath. Patient had seen his PCP last week on Thursday the and was recommended to go for his covid test. Patient apparently never went for his test. Yesterday completed a tele visit with his PCP, Dr. Encarnacion, referred to the ER. Patient tested positive for Covid infection while in the ER. On admission patient hypoxic with O2 sat of 80% on room air, required nonrebreather to maintain O2 sats in the 90s to 100%. Febrile on admission with temperature 99.9, normal WBC. D-dimer 2.41, sodium 132, BUN 52, creatinine 2.05, ferritin 1556.7 total bili elevated on admission now within normal limits, mildly elevated LFTs, LDH 2411currently 2018, CRP 158.4. Given patient's renal function and respiratory status unable to proceed with CTA of chest or VQ to rule out PE, currently on heparin drip. Chest x-ray reported partially consolidative opacity in the right lung base consistent with acute pneumonic process. Telemetry sinus rhythm with fusion complexes and PACs with left axis deviation. Denies chest pain, palpitations. 06/25/2020 during the night and again this morning patient removing his oxygen, desatting into the high 40s, turning blue, return to 15 L high flow in addition to nonrebreather, O2 sats initially in the high 80s. As the morning progressed, only maintaining O2 sats in the low 80s and transitioned to BiPAP mask. Chest x-ray reported diffuse bilateral patchy infiltrates stable. Denies chest pain, palpitations. Xanax administered for anxiety. Continue to develop more agitation attempting deplorable off mask. signal supervisor placed in room. Eventually patient required IV push Haldol. Patient now maintaining O2 sat of 94% on 100% BiPAP. Afebrile, WBC 14.8. Creatinine improving, 1.28. 06/26/2020 requiring 100% BiPAP to maintain O2 sats in the low 90s. T-max 102.6. WBC 14.9. Telemetry reporting Sinus Tachycardia with heart rates up into the 120s. Echo reported LV function 40-45% . Potassium 5.2, Renal function improving. Blood sugars controlled. Anxious, agitated, combative at times. Sitter remains at bedside. Receiving when necessary Haldol. Staff reports patient was asking for the bar mayandel, unclear if history of EtOH abuse, with questionable withdrawal. Psychiatry consult in place with recommendations pending. 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 Received Ativan 1 mg IV push. Agitation lessened. Staff reports carmen ent was choking on water. Spiking fevers, T-max 100.5, labs pending. Taking O2 sats of 90 on 60% BiPAP. 06/28/2020 rough night with increased agitation and confusion despite Prolixin and Zyprexa. Reevaluated by psychiatry this morning with medication changes noted and appreciated. Unable to wean from 100% BiPAP, maintaining O2 sats of mid 80s to low 90s. Speech therapy unable to conduct swallow evaluation as patient unable to tolerate being off of BiPAP. Poor oral intake, renal function worsening. Sitter remains at bedside. Afebrile. 06/29/2020 100% BiPAP, maintaining O2 sats in the low 90s. Had a better night with less agitation, received Prolixin. Less confused this morning. Asking for ice chip. Complains of chronic back pain. Discussed CODE STATUS and patient wishes to remain a full code. Denies any chest pain, palpitations. BUN 43, creatinine 1.18. Received PICC line with TPN initiated yesterday. Blood sugars controlled. 07/02/2020 remains on 80% BiPAP, maintaining O2 sats in the high 80s. Minimal reserve-Unable to tolerate being off BiPAP mask . Receiving TPN via PICC line. Reporting that he is hungry.Calm, maintained on Zyprexa, prn Prolixin as per p sychiatry. Did not require Prolixin over the weekend. Sensorium significantly improved. Afebrile. D-dimer, LDH decreased, CRP increased. 07/03/2020 continue on 80% BiPAP, calm, maintaining O2 sats in the mid 90s. Hungry, asking for food, receiving TPN. Also asking for a writing board to co mmunicate easier. 07/04/2020 significant improvement in sensorium .weaned off of BiPAP currently maintaining O2 sats in the high 80s to low 90s on both high flow nasal cannula/nonrebreather. Productive cough. Continues on TPN with bites of food intermittently. Blood sugars ranging from 130 to 225. Continue on Covid cocktail including Decadron. Denies chest pain, palpitations. 07/05/2020 Staff reports patient desatted down into the 70s this morning within minutes of taken off mask (patient had been on 60L high flow nasal cannula and nonrebreather )to have a few bites of oatmeal. Slow recovery and 80% BiPAP mask reapplied. Receiving TPN via PICC line as well. Continues on Covid cocktail. Blood sugars better controlled on low-dose Levemir insulin. T-max 100.5, WBC 8.6. 07/06/2020 Desatted to the low 60s on high flow nasal cannula with nonrebreather. BiPAP 100% maintaining O2 sats of 89%. Maintained on TPN . Continues on Covid cocktail. Inflammatory markers remain elevated. Afebrile, T-max 99. Blood sugars controlled. 07/09/2020 Airvo/NRB, maintaining O2 sats in the high 80s. Afebrile. Blood sugars 160s to 190s. 07/10/2020 currently on high flow nasal cannula 60% and nonrebreather maintaining O2 sats 86-80%. Reports mild anxiety this morning. Afebrile. Labs pending. 07/16/2020 weaned off BiPAP today, currently maintained on 90% FiO2 Airvo + NRB maintaining O2 sats in the high 80s to low 90s.Chest x-ray reports bilateral interstitial and airspace disease similar to prior exam. Hemoglobin 12.9, Platelets 105. TPN discontinued, consistent carb diet initiated. Afebrile, normal WBC, blood cultures reporting no growth. T bili, AST, ALT worsened. Albumin 2.5. Continues on bronchodilators, IV steroids with blood sugars better controlled this morning. 07/17/2020 Maintained on FiO2 85% with O2 sats of 89-91%. Chest x-ray reporting stable bilateral interstitial and alveolar infiltrates. Sitting up in chair,teary-eyed over finally getting out of bed. Consuming 50% of breakfast with no nausea vomiting or diarrhea. Blood sugars controlled. Passing flatus. Mild delirium reported by staff, will re-initiate Zyprexa,as previously recommended per psychiatry. Afebrile, WBC 8.8. Hemoglobin 12.5, platelets 103. D-dimer was 0.48, sodium 134, BUN 29, creatinine 0.83. ALT 202. Ferritin decreased to 1138.4, CK 39, CRP 0.7. 07/18/2020 maintained on FiO2 90% with O2 sats 93-94%. Afebrile, normal WBC. Hemoglobin 13.4, platelets 94. Blood sugars controlled. Sodium 134., Potassium 5.2. Objective - Vital Signs Vital signs: Vital Signs Temp 98 F 07/18/20 08:00 Pulse 53 L 07/18/20 10:00 Resp 14 07/18/20 10:00 BP 121/72 07/18/20 10:00 Pulse Ox 94 L 07/18/20 10:00 Intake & Output 07/17/20 07/18/20 07/18/20 18:59 06:59 18:59 Intake Total 240 80 150 Output Total 800 1035 310 Balance -560 -885 -160 Intake: IV 240 40 Sodium Chloride 0.9% 1, 240 40 000 ml @ 20 mls/hr IV . Q24H [facility] Rx#:[id number] Intake, IV Titration 40 Amount Sodium Chloride 0.9% 1, 40 000 ml @ 20 mls/hr IV . Q24H [facility] Rx#:[id number] Oral 150 Output: Urine 800 1035 310 Other: Voiding Method Indwelling Catheter Indwelling Catheter Indwelling Catheter - Exam GENERAL: Sitting up in bed, no acute distress CHEST EXAMINATION: Symmetrical expansion. Diminished, bibasilar crackles CARDIAC: Normal S1, S2 with no gallops. No murmurs ABDOMEN: Soft. Bowel sounds normal. No guarding. Positive bowel sounds Extremities: no edema. No clubbing or cyanosis. No calf pain. Neurologically: Cranial nerves II through XII grossly intact , no focal de ficits, Moving all extremities. Skin: Warm and dry, no rashes. - Labs CBC & Chem 7: 07/18/20 04:08 07/18/20 04:08 Labs: Abnormal Lab Results - Last 24 Hours (Table) 07/17/20 07/17/20 07/17/20 Range/Units 04:15 11:22 21:17 Plt Count (150-450) k/uL Lymphocytes # (1.0-4.8) k/uL Sodium (137-145) mmol/L Potassium (3.5-5.1) mmol/L BUN (9-20) mg/dL Glucose (74-99) mg/dL POC Glucose (mg/dL) 117 H 129 H (75-99) mg/dL Ferritin 1138.4 H (22.0-322.0) ng/mL ALT (4-49) U/L Total Protein (6.3-8.2) g/dL Albumin (3.5-5.0) g/dL 07/18/20 07/18/20 07/18/20 Range/Units 04:08 04:08 06:51 Plt Count 94 L (150-450) k/uL Lymphocytes # 0.4 L (1.0-4.8) k/uL Sodium 134 L (137-145) mmol/L Potassium 5.2 H (3.5-5.1) mmol/L BUN 50 H (9-20) mg/dL Glucose 136 H (74-99) mg/dL POC Glucose (mg/dL) 115 H (75-99) mg/dL Ferritin (22.0-322.0) ng/mL ALT 163 H (4-49) U/L Total Protein 5.3 L (6.3-8.2) g/dL Albumin 2.7 L (3.5-5.0) g/dL Assessment and Plan Assessment: Sepsis secondary to Acute Covid -19 pneumonia, status post TOCI Acute hypoxic respiratory failure secondary to the above, Acute delirium, acute metabolic encephalopathy secondary to the above, possibly acute hypoxic encephalopathy, medication induced, steroids, benzos, opiates. Possible steroid psychosis. Significantly improved. Acute renal failure secondary to the above, improving Hyperglycemia, steroid-induced Thrombocytopenia Gastroesophageal reflux disease Chronic paroxysmal atrial fibrillation Chronic systolic CHF, EF 35-40% Coronary artery disease with history of NM,stent placement Former nicotine dependence Hypertension Mild to moderate protein calorie malnutrition , status post TPN Plan: Continue on current medication regime ,monitoring and symptomatic t reatment.PT/OT .Covid cocktail. Titration of FiO2. Prognosis guarded given multiple complex medical issues. The impression and plan of care has been dictated as directed. : I performed a history and examination of this patient, discussed the same with the dictator. I agree with the dictator's note ,documented as a scribe. Any additional findings or plans will be noted.
--- NOTE | 2020-07-18 10:56 | P.PN ---
Subjective Progress Note Date: 07/18/20 Principal diagnosis: Acute hypoxic respiratory failure secondary to COVID-19 pneumonia This is a 70-year-old gentleman that was seen in the emergency room on June 21. He was sent into the emergency room after being seen by his primary care doctor because of increasing shortness of breath, and concerns that the patient might have COVID 19. In addition to shortness of breath, the patient states he's been having lots of chest congestion, and is been coughing. When he coughs, it is painful in his chest. He has been sick for at least 2 weeks. In addition, he has muscle aches and joint aches, weakness and fatigue, and fever and chills. Currently, he is on a nonrebreather mask. Saturations are 92%. His primary care physician Dr. Vijay Encarnacion. He was not receiving any IV fluids. His primary medical problems include atrial fibrillation, coronary artery disease, hype rlipidemia, hypertension, gastroesophageal reflux disease, and prior myocardial infarction. The patient is a lifelong nontobacco user. White count is 4.9, hemoglobin 13.5, hematocrit 39.5, platelet count 92,000. PTT 61.3. D-dimer 2.41. Sodium 132, potassium 4.8, chloride 105, CO2 18, anion gap 9, BUN and creatinine 52 and 2.05. Calcium 7.6, AST 156, pO2 102, LDH 2018. C-reactive protein 158. I was not able to look at the chest x-ray. There is apparently a partially occlusive opacity at the right lung base consistent with acute pneumonic process. CT angiogram was not performed. Patient was reevaluated today on 06/23/2020, patient is feeling better today compared to how he felt yesterday. Patient is on high flow cannula running at 15 L/m, his O2 saturation is in the mid to high 80s he is on 100% FiO2 basically. His chest x-ray does not seem to be impressive, he does have consoli dative opacity in the right lung base consistent with acute pneumonic process. Left lung is relatively clear. No significant pulmonary congestion. D-dimer is 2.56. Renal profile is not good enough for performing a CT angiogram of the chest, however I will recommend bilateral venous Doppler on this patient just to make sure we were not dealing with thromboembolic process. Again the patient tells me that his feeling better today compared to how he felt yesterday. Clinically improving. Patient was reevaluated today on 06/24/2020, patient remains on high flow oxygen. He is on 15 L high flow cannula, and his O2 saturations 92% at best. Patient continues to have shortness of breath, intermittent episodes of cough. He has no fever, his vital signs are relatively stable. During my evaluation, patient was constantly coughing. CBC is relatively normal electrolytes are normal BUN is 52 creatinine 1.45. LDH is elevated at 1586. Venous Doppler yesterday was negative. Chest x-ray on admission showed consolidation at the right lung base. I also suspect some consolidation at the left base/retrocardiac area. Progress note dated 06/25/2020. Currently, the patient was on BiPAP and on percent. Earlier today, he desaturated, and the nurses had a hard time getting his saturations back up. We did do a blood gas on the patient. PO2 was 63, pCO2 was 33, pH was 7.44. That was on 100% on the BiPAP. White count 14.8, hemoglobin hematocrit and platelet count all normal. Sodium 136, potassium 4.9, chlorides 107, CO2 20, anion gap 9, BUN 45, creatinine 1.28. Chest x-ray today showed diffuse bilateral patchy infiltrates which are stable. Yesterday, he was on high flow nasal O2 at 15 L/m. Progress note dated 06/26/2020. 70-year-old male, currently on BiPAP, at 16/6 and 80%. His saturations were good, so the FiO2 was dropped from 80% down to 60%. The patient appears to be d oing reasonably well, although he did become somewhat tachypnea today when he was being evaluated here. Saturations are 90% on the 60% FiO2. Temperature is 98.1, and blood pressure 173/104. White count 14.9, and hemoglobin, hematocrit, and platelet count are all normal. Sodium 135, potassium 5.2, chlorides 106, CO2 18, anion gap 11, BUN 38, creatinine 1.23. Chest x-ray from June 25, shows bilateral patchy infiltrates. The patient is seen today 06/27/2020 in follow-up on the regular medical floor. He is currently resting fairly comfortably in bed. He is maintaining O2 saturation in the 90s on BiPAP 16/6 and 60% FiO2. 0.9 normal saline at 50 MLS per hour. Chest x-ray continues to show patchy bilateral infiltrates compatible with superimposed interstitial pneumonia. White count 8.3. Hemoglobin 13.4. Sodium 139. Potassium 5.6. Creatinine 1.13. He is continued on dexamethasone, Xarelto, vitamin supplements. The patient is seen today 06/28/2020 follow-up on the selective care unit. He is currently sitting up in bed. Remains on BiPAP 16/6 and 100% FiO2 maintaining O2 saturation the high 80s low 90s. He is 0.9 normal saline at 50 MLS per hour. He is now on Lovenox, dexamethasone, vitamin supplements. PICC line placed today. The patient is seen today 06/29/2020 follow-up on the selective care unit. He remains on BiPAP 16/6 and 100% FiO2 to maintain O2 saturations in the low 90s. He is afebrile. Currently being nourished with TPN via PICC line. 0.9 normal saline at 50 ML's per hour. Blood cultures reveal no growth. Sodium 140. Potassium 5.1. Creatinine 1.18. Glucose 125. He remains on dexamethasone, Lovenox, vitamin supplements. The patient is seen today 06/30/2020 follow-up on the selective care unit. He is currently resting fairly comfortably in bed. Remains on BiPAP 16/6 at 100% FiO2. He is being nourished with TPN and lipids via PICC line. 0.9 normal saline at 50 MLS per hour. He states he is still quite fatigued but improved today compared to yesterday. Cultures reveal no growth. D-dimer 10.2. Sodium 140. Potassium 5.2. Creatinine 0.99. LDH 1591. C-reactive protein 53.8. He remains on therapeutic Lovenox, dexamethasone, vitamin supplements. The patient is seen today 07/01/2020 in follow-up on the selective care unit. He is resting comfortably in bed. Continued on BiPAP 16/6 and 100% FiO2 to maintain O2 saturations in the high 80s low 90s. Chest x-ray continues to show scattered bilateral lung infiltrates which are stable compared to previous. Sodium 142. Potassium 4.8. Creatinine 0.95. Yesterday's d-dimer 10.23. Remains on therapeutic Lovenox at 100 mg subcu every 12 hours, Decadron, vitamin supplements. On today's evaluation of 07/02/2020 on seeing the patient for a follow-up. The patient remains on a BiPAP at a pressure of 16/6 cm of water and FiO2 of 80%. The patient is also receiving TPN for nutritional support. Therapeutic dose of Lovenox. His d-dimer was quite elevated at 10.2, normal renal function, normal electrolytes, CRP was elevated at 53 with an LDH level of 1591. Most recent chest x-ray from 07/01/2030 showing peripherally located infiltrates bilaterally. The patient is able to generate tidal volume of around 370 on the BiPAP machine. His extremities around 28. He is very weak. He cannot tolerate being off the BiPAP as the patient immediately desaturates even was taken pills or sips of water. He remains on TPN for nutritional support. His symptoms of his blood work today, he has white cell count of 9.8 with a hemoglobin of 12, sodium is 139 and a creatinine of 0.9. His current pulse ox on the percent on above-mentioned BiPAP setting with an FiO2 of 80%.Inflammatory markers are still elevated. D-dimer is at 5 and the patient also has an LDH level of 1009 with a CRP of 143.The chest x-ray from yesterday was showing worsening in the bilateral lower lobe pulmonary infiltrates especially in the right lower lobe. 07/03/2020 the patient remains on BiPAP at a pressure of 16/6 with an FiO2 of 80% and this is essentially the same setting as yesterday. His current vitals show a pulse ox of 94% on above-mentioned ventilator setting. He is afebrile. Breathing is nonlabored. He is still on TPN for nutritional support. His chest x-ray from 07/01/2020 showed peripheral pulmonary infiltrates consistent with Coumadin related pneumonia. No repeat x-rays since then. The patient remains considerably weak. His blood work from today showing no major electrolyte abnormalities. His LDH level was dropping yesterday down to 1009. He is still on Decadron 6 mg IV every 24 hours. He is also on Lovenox 45 mg subcu every 12 hours. On the BiPAP machine, degenerative tidal volumes around 400. 06/03/2020 this morning the patient is off the BiPAP and the patient is currently on a high flow oxygen 60 L with an FiO2 of 86%. The patient is also using 100% nonrebreather facemask. His current pulse ox is around 91%. He has developed skin breaks and ulceration from his BiPAP mask and is currently off the BiPAP. He is resting comfortably in bed. He is still on Lovenox 45 mg subcu every 12 hours. There is on steroids and the patient is receiving De cadron 6 mg IV every 24 hours. The patient is also on TPN for nutritional support. LDH level is at 893 which is lower than the CRP level is down to 50. He is quite weak and debilitated. His white cell count of 6.8 with a hemoglobin of 12.3. No fever. No other new complaints otherwise for now. Most recent d- dimer was at 5 from 07/02/2020. 07/05/2020, the patient remains on BiPAP. The patient was on high flow oxygen yesterday and desaturated and he decompensated and he was switched to a BiPAP at a pressure of 16/6 with an FiO2 of 80%. This occurred when the patient on was trying to have some breakfast earlier this morning. He was on high flow oxygen. He dropped his oxygen saturations significantly and he was very slow in recovery. At that point, he was switched to a BiPAP. His current pulse ox is 90%. He is quite lethargic and somnolent. He is unable to eat and he has TPN for nutritional support. He continues to be on Decadron 6 mg IV every 24 hours. He is also on Lovenox 45 mg subcutaneously every 12 hours. On his blood work, he had a d-dimer of 6.49 which is slightly higher than the white cell count is at 8.6 with a hemoglobin of 12.8. TPN is current to being administered for nutritional support. No other significant events , otherwise his night was uneventful.. The PICC line is in the left upper extremity. The patient also has a Kwan catheter in place. Each in relating a tidal volume of 550 and his respiratory rate is currently in the mid 30s. He seems to be quite comfortable. He is however lethargic. 07/06/2020, the patient is on a BiPAP at a pressure of 16/6 with an FiO2 of 100%. Pulse ox is currently at around 88%. He was having some oxygen desaturations and the patient was brought up to 100% on her BiPAP FiO2. The patient's subsequent reading in a pulse ox in the order of 91%. Remains on TPN for nutritional support. Remains on Decadron 6 mg IV every 24 hours. Remains on Lovenox 45 mg subcu every 12 hours. Blood work shows a d-dimer of 5.64. No electrolyte abnormalities. Condition is essentially unchanged and probably the same as yesterday. Still on Levemir insulin 10 units along with a sliding scale coverage. Blood sugars are adequate for now. He does have a PICC line in left upper extremity. He has a Kwan catheter in place. At around 10:00 this morning, the patient was trialed on the percent nonrebreather with a high flow oxygen at 60 L with an FiO2 of 90%. He desaturated to the low 60s and he was placed accordingly back on BiPAP. 07/07/2020 the patient is a same BiPAP setting which is 60/6 with an FiO2 of 95%. Earlier this morning she was trialed on high flow oxygen with 60 L and FiO2 of 90% and he decompensated and he became profoundly hypoxic and he had to be placed back on the BiPAP. His current pulse ox in the low 90s. He remains on IV Decadron 6 and the rescue 24 hours. He remains on Lovenox 45 mg subcu every 12 hours. Chest x-ray from today is showing stable bilateral interstitial pulmonary infiltrates with some worsening consolidation of the left lower lobe. Meanwhile, the patient is still receiving TPN for nutritional support. He is unable to take oral intake because of his extreme BiPAP dependence. D-dimer is at 4.06 and the patient is on Lovenox 45 mg subcu every 12 hours. He has also LDH level of 962, CRP level is at 8.3, electrolytes are all within normal limits. Unfortunately, he is still doing poorly and is not showing any signs of recovery. He remains on Levemir insulin 10 units daily along with a sliding- scale coverage. He has a Kwan catheter in place. Respiratory rate is in the mid 30s. He is quite lethargic. 2020, the patient continues to be on a BiPAP at a pressure of 16/6 with an FiO2 of 95%. Awake and alert. Slightly tachypneic. Pulse ox is 89% on the above-mentioned BiPAP setting. Minute ventilation as 40 L as we were seeing the patient and his minute ventilation with a. Otherwise his aspirate has been in the high 20s low 30 range. Whenever he sleeps, his respiratory rate goes down. He wants to stay on the BiPAP and he doesn't want to transition to the high flow oxygen today. Repeat chest x-ray was done and the findings are essentially stable with diffuse bilateral pulmonary infiltrates. No evidence of any pneumothorax. No interval progression or worsening his chest x-ray findings. Meanwhile, his blood work shows no major abnormalities. Blood sugars are not elevated. The patient remains on TPN for nutrition support and the patient remains on Decadron IV every 24 hours on Lovenox 45 mg subcu every 12 hours. D- dimer level is at 4.06. Patient was reevaluated today on 07/09/2020, remains on high flow oxygen using airvo and non-rebreather mask. Patient is on 94% FiO2 and 60 L flow per minute. Patient is about the same, not getting any better not getting any worse. He is noted to be slightly tachypneic. Has BiPAP at bedside, but not using it at present. Basic metabolic profile today is normal., Last LDH was trending down to 962 and C-reactive protein 8.3 Patient was reevaluated today on 07/10/2020, remains on high flow oxygen using Airvo and nonrebreather mask. O2 saturation remains marginal in the low 90s and high 80s patient denies being short of breath. He has intermittent cough. His d-dimer is 5.4 to today. Not significantly changed over the last 1 week. Basic metabolic profile is normal renal profile is normal. His last C-reactive protein was 8.3 and his LDH was 962 from 2 days ago. Chest x-ray from 07/08 continues to show persistent bilateral multifocal and comfortable in particular opacities consistent with COVID-19 infection. Patient was reevaluated today on 07/11/2020, remains on high flow oxygen, patient is on nonrebreather plus airvo 90% FiO2 and 60 L flow, O2 saturation remains marginal in the mid to high 80s. Patient in mild distress, but overall he thinks he is getting a bit better. Tried today to change position on the patient and see if his oxygenation improves, did not seem to make much of a difference, and the patient could not lay prone. He had even some difficulty laying on the right side. Remained generally weak, not making significant progress since admission. His CBC looks relatively normal his d-dimer is 5 renal profile is normal. Electrolytes are normal. Last chest x-ray from 2 days ago was consistent with COVID-19 pneumonia. On 07/12/2020 patient seen in follow-up on medical surgical floor, this morning his dyspnea and hypoxia have worsened, he is displaying decreasing oxygen saturations and increasing work of breathing. Patient has been on BiPAP support with pressures of 12 and 6 and 200%, and despite that patient is unable to maintain O2 saturations above 80-82%, he is quite tachypneic. Patient remains on multivitamins, steroids, and Lovenox 45 mg twice daily. He is status post Toci on 07/06/2020. He is receiving nutritional support in the form of TPN, his been unable to take in much by mouth related to his dyspnea, hypoxia, and dependence on high flow oxygen and BiPAP. Stat chest x-ray was obtained showing increasing confluence of airspace disease, and patient's steroids have been switched to Solu-Medrol 60 mg every 6 hours. Today's labs have been reviewed On 07/13/2020 patient seen in follow-up in the intensive care unit, he was trace to the ICU yesterday in view of worsening hypoxia and dyspnea, he is on BiPAP support pressures of 16/8 and FiO2 of 100%, and his pulse ox is 92%, he seems to be comfortable on those settings, breathing comfortably, appears to be in no respiratory distress. He does not tolerate being off the BiPAP and is very much dependent on BiPAP at this time, unable to take any oral meds or oral nutrition, PICC line was inserted in patient continues on TPN for nutritional support at a rate of 85 ML per hour, and lipids on the Thursday schedule, followed by registered dietitian. No other vasoactive drips, no other maintenance drips, hemodynamically he remains stable, he is in sinus mechanism, today's chest x-ray has been reviewed showing improvement in aeration, and patient is currently on IV steroids with Solu-Medrol 60 mg every 6 hours, and he remains on Lovenox 45 mg twice daily, all of his oral medications have been discontinued, and his Lopressor has been switched over to Lopressor IV 20 mg every 6 hours. No complaints of chest discomfort, no cough, lung sounds reveal diffuse crackles. He appears be fairly comfortable. Today's labs have been reviewed showing white blood cell count of 9.0, hemoglobin of 13.9, his d-dimer is improving and is down to 1.84, sodium is 135, the rest of the electrolytes were within normal limits, and BUN is up slightly, at 42, creatinine remains in the normal range of 0.71. LDH is 1492 uptrended a bit from previous value, and CRP is 0.8 On 07/14/2020 patient is seen in follow-up in intensive care unit, she remained BiPAP dependent at this time, BiPAP pressures of 16/8, and FiO2 100%, however he tolerates BiPAP support quite well, no agitation, no attempts to remove the mass, he is quite compliant, pulse ox on those settings is ranging from 93-96%, hemodynamically he is stable, has not had any vasopressor support, he is in sinus mechanism with a rate of 67, he is on 0.9 normal saline at a rate of 29 per hour, TPN is infusing at 85 MLS per hour, patient has not been able to come off the BiPAP support long enough to sustain his oral nutrition. He feels thirsty, and his been coming off the BiPAP mask only for oral care and sips of water. He is awake, he is alert oriented 3, denies acute distress, today's chest x-ray shows mixed interstitial and airspace disease within the lungs similar to the prior exam, no major change. Today's labs have been reviewed, doing a d-dimer slightly trending down, down to 1.25, LDH is 1305, down from yesterday, his CRP is normal at 0.7. Blood cultures have shown no growth. He remains on prophylactic dose Lovenox 40 mg daily, remains on Solu-Medrol 60 mg every 6 hours, he is on morphine as needed 2-4 mg every 4 hours for breathlessness and anxiety, and that has been helping him cope with the BiPAP support. No chest discomfort, no nausea vomiting or diarrhea no abdominal pain. On 07/16/2020 patient seen in follow-up in the intensive care unit, patient was able to lift the BiPAP support, and he is currently on Airvo at 60 L and FiO2 of 90% in addition to 100% nonrebreather mask, tolerating it well so far, he is awake and alert, oriented 3, he is able to taken some oral nutrition, no increased dyspnea, he is maintaining O2 saturations at around 90% on the above mentioned oxygen set up, he is afebrile, he is hemodynamically stable, not in any vasopressor support, he is on 0.9 normal saline at a rate of 20 ML per hour, his TPN has been discontinued. Today's chest x-ray shows bilateral interstitial and airspace disease similar in appearance to previous chest x-ray from yesterday. Today's blood work has been reviewed, showing orbital, 10.2, hemoglobin is 12.9, serum sodium is 135, the rest of electrolytes were unremarkable, BUN is 48, creatinine 0.74, his AST is 96, ALT is 182, worsened since yesterday, total bilirubin is 1.4, his LDH is CRP were not repeated today, but or improving on yesterday's labs. All blood cultures have been negative thus far. He remains on daily dose of Lovenox 40 mg daily, IV steroids 60 mg every 6 hours, and sliding scale insulin in addition to Levemir. Vital signs have been stable, no fever or chills, no nausea vomiting or diarrhea. On 07/17/2020 patient seen in follow-up in intensive care unit, she remains on Airvo at 60 L and FiO2 of 90% in addition to 100% nonrebreather mask and he is maintaining O2 saturations between 86-92%, he is breathing comfortably, no increased dyspnea or cough, vital signs have been stable, he has been afebrile. He is on 0.9 normal seen at 20 ML per hour, no other drips. Tolerating oral intake, TPN has been discontinued, today's labs have been reviewed showing white blood cell count 8.8, hemoglobin of 12.5, d-dimer is 1.48, sodium is 134, there is the rest of the electrolytes are unremarkable, BUN is 49 creatinine 0.83, LDH is 1279, CK is 39, CRP 0.7, laboratory markers are relatively stable. His cultures have been reviewed, all blood cultures have remained negative. He remains on Lovenox 40 mg daily, and IV Solu-Medrol at 60 mg every 6 hours On 07/18/2020 patient seen in follow-up in the intensive care unit, he remains on Airvo at 60 L and FiO2 of 90% in addition to 100% nonrebreather mask is pulse ox is 93-94%, his been off BiPAP support for last 48 hours, tolerating it well so far, tolerating oral intake, TPN has been discontinued, hemodynamically stable, he is afebrile. He did desaturate become short of breath with any exertion, still has a cough. No new chest x-ray today, yesterday chest x-ray showed bilateral interstitial and alveolar infiltrates. Continues on IV Solu- Medrol 60 mg every 6 hours, and prophylactic dose Lovenox. No acute events overnight. Today's labs have been reviewed, white blood cell count is 7.5, he moglobin is 13.4, yesterday's d-dimer was 1.48, serum sodium is 134, potassium is 5.2, BUN is 50 creatinine 0.86, LDH is CRP were improving on yesterday's labs. Objective - Vital Signs Vital signs: Vital Signs Temp 98 F 07/18/20 08:00 Pulse 53 L 07/18/20 10:00 Resp 14 07/18/20 10:00 BP 121/72 07/18/20 10:00 Pulse Ox 94 L 07/18/20 10:00 Intake & Output 07/17/20 07/18/20 07/18/20 18:59 06:59 18:59 Intake Total 240 80 150 Output Total 800 1035 310 Balance -560 -965 -160 Intake: IV 240 40 Sodium Chloride 0.9% 1, 240 40 000 ml @ 20 mls/hr IV . Q24H ROBERT Rx#:[id number] Intake, IV Titration 40 Amount Sodium Chloride 0.9% 1, 40 000 ml @ 20 mls/hr IV . Q24H ROBERT Rx#:[id number] Oral 150 Output: Urine 800 1035 310 Other: Voiding Method Indwelling Catheter Indwelling Catheter Indwelling Catheter - Exam GENERAL EXAM: Alert, very pleasant, 70-year-old white male, on Airvo at 60 L and FiO2 of 90%, in addition to 100% nonrebreather mask maintaining O2 saturations around 92% HEAD: Normocephalic/atraumatic. EYES: Normal reaction of pupils, equal size. Conjunctiva pink, sclera white. NOSE: Clear with pink turbinates. THROAT: No erythema or exudates. NECK: No masses, no JVD, no thyroid enlargement, no adenopathy. CHEST: No chest wall deformity. Symmetrical expansion. LUNGS: Equal air entry with diminished breath sounds bilaterally, with bilateral base crackles CVS: Regular rate and rhythm, normal S1 and S2, no gallops, no murmurs, no rubs ABDOMEN: Soft, nontender. No hepatosplenomegaly, normal bowel sounds, no guarding or rigidity. EXTREMITIES: No clubbing, no edema, no cyanosis, 2+ pulses and upper and lower extremities. MUSCULOSKELETAL: Muscle strength and tone normal. SPINE: No scoliosis or deformity SKIN: No rashes CENTRAL NERVOUS SYSTEM: Alert and oriented -3. No focal deficits, tone is normal in all 4 extremities. PSYCHIATRIC: Alert and oriented -3. Appropriate affect. Intact judgment and insight. - Labs CBC & Chem 7: 07/18/20 04:08 07/18/20 04:08 Labs: Abnormal Lab Results - Last 24 Hours (Table) 07/17/20 07/17/20 07/17/20 Range/Units 04:15 11:22 21:17 Plt Count (150-450) k/uL Lymphocytes # (1.0-4.8) k/uL Sodium (137-145) mmol/L Potassium (3.5-5.1) mmol/L BUN (9-20) mg/dL Glucose (74-99) mg/dL POC Glucose (mg/dL) 117 H 129 H (75-99) mg/dL Ferritin 1138.4 H (22.0-322.0) ng/mL ALT (4-49) U/L Total Protein (6.3-8.2) g/dL Albumin (3.5-5.0) g/dL 07/18/20 07/18/20 07/18/20 Range/Units 04:08 04:08 06:51 Plt Count 94 L (150-450) k/uL Lymphocytes # 0.4 L (1.0-4.8) k/uL Sodium 134 L (137-145) mmol/L Potassium 5.2 H (3.5-5.1) mmol/L BUN 50 H (9-20) mg/dL Glucose 136 H (74-99) mg/dL POC Glucose (mg/dL) 115 H (75-99) mg/dL Ferritin (22.0-322.0) ng/mL ALT 163 H (4-49) U/L Total Protein 5.3 L (6.3-8.2) g/dL Albumin 2.7 L (3.5-5.0) g/dL Assessment and Plan Plan: Assessment: #1. Acute hypoxemic respiratory failure secondary to COVID-19 pneumonia. Out side the window for Remdesivir, that is post Toci 800 mg on 07/06/2020 for worsening hypoxic respiratory failure, patient remains very much BiPAP dependent and has not tolerated transitioning to high flow oxygen very well, he required transfer to the intensive care unit today on 07/12/2020 and current BiPAP settings of 14/8 and FiO2 of 100%. Today on 07/16/2020 patient came off BiPAP support and is currently on irritable at 60 L and FiO2 of 90% in addition to 100% nonrebreather mask #2. Increased inflammatory markers related to the above, improving #3. Increased d-dimer, lower extremity Dopplers showed no evidence of DVT, patient remains on Lovenox 45 mg twice daily and a d-dimer is improving #4. History of atrial fibrillation, paroxysmal and patient is not on any chronic anticoagulation #5. Coronary artery disease with previous stent placement #6. GERD/reflux #7. Hypertension #8. Hyperlipidemia #9. History of rheumatic fever #10. History of gout #11. Acute kidney injury recovered #12. Decreased oral intake and inability to sustain oral intake related to BiPAP device, and dependence on noninvasive ventilatory support, patient is currently on TPN for nutritional support. TPN has been discontinued, patient is tolerating oral diet today, he is off BiPAP support on 07/16/2020 Plan: Continue Airvo and nonrebreather mask Titrate FiO2 to keep O2 sats ration is at or above 90% May utilize BiPAP if develops respiratory fatigue Continue Solu-Medrol 60 mg every 6 hours Blood sugar monitoring Encourage oral intake, consult dietitian for recommendations for supplements Decrease Lovenox to 40 mg daily, d-dimer is improving Provide incentive spirometer Follow-up chest x-ray tomorrow, follow up basic labs and inflammatory markers Continue close monitoring in the intensive care unit Overall prognosis is guarded I performed a history & physical examination of the patient and discussed their management with my nurse practitioner, Constance El. I reviewed the nurse practitioner's note and agree with the documented findings and plan of care. Lung sounds are positive for bibasilar crackles. The findings and the impression was discussed with the patient. I attest to the documentation by the nurse practitioner. Time with Patient: Greater than 30
[2020-07-18] MEDS ORDERED: ONDANSETRON 4 MG/2 ML VIAL IVP PRN (11:55)
[2020-07-18 12:05] LABS: Glucose,Whole Blood 121 mg/dL (75-99)
[2020-07-18 14:52] VITALS: BMI 31.6
[2020-07-18 16:52] LABS: Glucose,Whole Blood 142 mg/dL (75-99)
[2020-07-18] MEDS: SODIUM CHLORIDE 0.9% 1,000 ML IV SCH (17:11)
[2020-07-18 19:52] LABS: Glucose,Whole Blood 158 mg/dL (75-99)
[2020-07-18] MEDS: OLANZapine 7.5 MG TAB PO SCH (19:55)
[2020-07-18] MEDS: MORPHINE SULFATE 4 MG/ML SYRINGE IVP PRN (19:56)
[2020-07-18 20:59] LABS: Glucose,Whole Blood 151 mg/dL (75-99)
[2020-07-19] MEDS: methylPREDNISolone SOD SUCCI 125 MG/2 ML VIAL IV SCH ×4 (00:41→19:53)
[2020-07-19 05:51] LABS: Basophils % (A) 0 %; Eosinophils % (A) 0 %; HCT 43.9 % (39.0-53.0); HGB 14.2 gm/dL (13.0-17.5); Lymphocytes # (A) 0.3 k/uL (1.0-4.8); Lymphocytes % (A) 4 %; MCHC 32.3 g/dL (31.0-37.0); MCV 92.7 fL (80.0-100.0); Mean Platelet Volume 9.2; Monocytes # (A) 0.4 k/uL (0-1.0); Monocytes % (A) 5 %; Neutrophils # (A) 7.2 k/uL (1.3-7.7); Neutrophils % (A) 91 %; RBC 4.74 m/uL (4.30-5.90); RDW 14.5 % (11.5-15.5)
[2020-07-19 05:52] LABS: Platelet Count 87 k/uL (150-450)
[2020-07-19 06:27] LABS: African American GFR (CKD) >90 (>60 ml/min/1.73 sqM); Anion Gap 4 mmol/L; Blood Urea Nitrogen 53 mg/dL (9-20); C Reactive Protein 0.6 mg/dL (<1.0); Calcium 8.5 mg/dL (8.4-10.2); Carbon Dioxide 27 mmol/L (22-30); Chloride 104 mmol/L (98-107); Glucose 132 mg/dL (74-99); LDH 1438 U/L (313-618); Non-African American GFR(CKD) 89 (>60 ml/min/1.73 sqM); Potassium 5.3 mmol/L (3.5-5.1); Sodium 135 mmol/L (137-145)
[2020-07-19 06:31] LABS: Glucose,Whole Blood 120 mg/dL (75-99)
[2020-07-19] MEDS: INSULIN ASPART (NovoLOG) 100 UNIT/ML VIAL SQ SCH ×4 (06:31→20:45)
[2020-07-19] MEDS: INSULIN DETEMIR (LEVEMIR) 100 UNIT/ML SYR SQ SCH (06:34)
[2020-07-19] MEDS: ENOXAPARIN 40 MG/0.4 ML SYRINGE SQ SCH (08:26)
[2020-07-19] MEDS: METOPROLOL TARTRATE 25 MG TAB PO SCH ×2 (08:26→20:46)
[2020-07-19] MEDS: FAMOTIDINE 20 MG TAB PO SCH ×2 (08:26→20:46)
--- NOTE | 2020-07-19 08:55 | XR ---
EXAMINATION TYPE: XR chest 1V portable DATE OF EXAM: 07/19/2020 COMPARISON: Chest x-ray 07/17/2020 HISTORY: Shortness of breath, Covid TECHNIQUE: Single frontal view of the chest is obtained. FINDINGS: Bilateral airspace disease, prominence interstitium again noted. No evident pneumothorax o r pleural effusion. Left-sided PICC line is again noted with the tip overlying superior vena cava. Ca rdiomediastinal silhouette is stable. Aorta is dense. IMPRESSION: Findings consistent with patient's history of pneumonia.
--- NOTE | 2020-07-19 11:34 | P.PN ---
Subjective Progress Note Date: 07/19/20 Principal diagnosis: Acute hypoxic respiratory failure secondary to COVID-19 pneumonia This is a 70-year-old gentleman that was seen in the emergency room on June 21. He was sent into the emergency room after being seen by his primary care doctor because of increasing shortness of breath, and concerns that the patient might have COVID 19. In addition to shortness of breath, the patient states he's been having lots of chest congestion, and is been coughing. When he coughs, it is painful in his chest. He has been sick for at least 2 weeks. In addition, he has muscle aches and joint aches, weakness and fatigue, and fever and chills. Currently, he is on a nonrebreather mask. Saturations are 92%. His primary care physician Dr. Vijay Encarnacion. He was not receiving any IV fluids. His primary medical problems include atrial fibrillation, coronary artery disease, hype rlipidemia, hypertension, gastroesophageal reflux disease, and prior myocardial infarction. The patient is a lifelong nontobacco user. White count is 4.9, hemoglobin 13.5, hematocrit 39.5, platelet count 92,000. PTT 61.3. D-dimer 2.41. Sodium 132, potassium 4.8, chloride 105, CO2 18, anion gap 9, BUN and creatinine 52 and 2.05. Calcium 7.6, AST 156, pO2 102, LDH 2018. C-reactive protein 158. I was not able to look at the chest x-ray. There is apparently a partially occlusive opacity at the right lung base consistent with acute pneumonic process. CT angiogram was not performed. Patient was reevaluated today on 06/23/2020, patient is feeling better today compared to how he felt yesterday. Patient is on high flow cannula running at 15 L/m, his O2 saturation is in the mid to high 80s he is on 100% FiO2 basically. His chest x-ray does not seem to be impressive, he does have consoli dative opacity in the right lung base consistent with acute pneumonic process. Left lung is relatively clear. No significant pulmonary congestion. D-dimer is 2.56. Renal profile is not good enough for performing a CT angiogram of the chest, however I will recommend bilateral venous Doppler on this patient just to make sure we were not dealing with thromboembolic process. Again the patient tells me that his feeling better today compared to how he felt yesterday. Clinically improving. Patient was reevaluated today on 06/24/2020, patient remains on high flow oxygen. He is on 15 L high flow cannula, and his O2 saturations 92% at best. Patient continues to have shortness of breath, intermittent episodes of cough. He has no fever, his vital signs are relatively stable. During my evaluation, patient was constantly coughing. CBC is relatively normal electrolytes are normal BUN is 52 creatinine 1.45. LDH is elevated at 1586. Venous Doppler yesterday was negative. Chest x-ray on admission showed consolidation at the right lung base. I also suspect some consolidation at the left base/retrocardiac area. Progress note dated 06/25/2020. Currently, the patient was on BiPAP and on percent. Earlier today, he desaturated, and the nurses had a hard time getting his saturations back up. We did do a blood gas on the patient. PO2 was 63, pCO2 was 33, pH was 7.44. That was on 100% on the BiPAP. White count 14.8, hemoglobin hematocrit and platelet count all normal. Sodium 136, potassium 4.9, chlorides 107, CO2 20, anion gap 9, BUN 45, creatinine 1.28. Chest x-ray today showed diffuse bilateral patchy infiltrates which are stable. Yesterday, he was on high flow nasal O2 at 15 L/m. Progress note dated 06/26/2020. 70-year-old male, currently on BiPAP, at 16/6 and 80%. His saturations were good, so the FiO2 was dropped from 80% down to 60%. The patient appears to be d oing reasonably well, although he did become somewhat tachypnea today when he was being evaluated here. Saturations are 90% on the 60% FiO2. Temperature is 98.1, and blood pressure 173/104. White count 14.9, and hemoglobin, hematocrit, and platelet count are all normal. Sodium 135, potassium 5.2, chlorides 106, CO2 18, anion gap 11, BUN 38, creatinine 1.23. Chest x-ray from June 25, shows bilateral patchy infiltrates. The patient is seen today 06/27/2020 in follow-up on the regular medical floor. He is currently resting fairly comfortably in bed. He is maintaining O2 saturation in the 90s on BiPAP 16/6 and 60% FiO2. 0.9 normal saline at 50 MLS per hour. Chest x-ray continues to show patchy bilateral infiltrates compatible with superimposed interstitial pneumonia. White count 8.3. Hemoglobin 13.4. Sodium 139. Potassium 5.6. Creatinine 1.13. He is continued on dexamethasone, Xarelto, vitamin supplements. The patient is seen today 06/28/2020 follow-up on the selective care unit. He is currently sitting up in bed. Remains on BiPAP 16/6 and 100% FiO2 maintaining O2 saturation the high 80s low 90s. He is 0.9 normal saline at 50 MLS per hour. He is now on Lovenox, dexamethasone, vitamin supplements. PICC line placed today. The patient is seen today 06/29/2020 follow-up on the selective care unit. He remains on BiPAP 16/6 and 100% FiO2 to maintain O2 saturations in the low 90s. He is afebrile. Currently being nourished with TPN via PICC line. 0.9 normal saline at 50 ML's per hour. Blood cultures reveal no growth. Sodium 140. Potassium 5.1. Creatinine 1.18. Glucose 125. He remains on dexamethasone, Lovenox, vitamin supplements. The patient is seen today 06/30/2020 follow-up on the selective care unit. He is currently resting fairly comfortably in bed. Remains on BiPAP 16/6 at 100% FiO2. He is being nourished with TPN and lipids via PICC line. 0.9 normal saline at 50 MLS per hour. He states he is still quite fatigued but improved today compared to yesterday. Cultures reveal no growth. D-dimer 10.2. Sodium 140. Potassium 5.2. Creatinine 0.99. LDH 1591. C-reactive protein 53.8. He remains on therapeutic Lovenox, dexamethasone, vitamin supplements. The patient is seen today 07/01/2020 in follow-up on the selective care unit. He is resting comfortably in bed. Continued on BiPAP 16/6 and 100% FiO2 to maintain O2 saturations in the high 80s low 90s. Chest x-ray continues to show scattered bilateral lung infiltrates which are stable compared to previous. Sodium 142. Potassium 4.8. Creatinine 0.95. Yesterday's d-dimer 10.23. Remains on therapeutic Lovenox at 100 mg subcu every 12 hours, Decadron, vitamin supplements. On today's evaluation of 07/02/2020 on seeing the patient for a follow-up. The patient remains on a BiPAP at a pressure of 16/6 cm of water and FiO2 of 80%. The patient is also receiving TPN for nutritional support. Therapeutic dose of Lovenox. His d-dimer was quite elevated at 10.2, normal renal function, normal electrolytes, CRP was elevated at 53 with an LDH level of 1591. Most recent chest x-ray from 07/01/2030 showing peripherally located infiltrates bilaterally. The patient is able to generate tidal volume of around 370 on the BiPAP machine. His extremities around 28. He is very weak. He cannot tolerate being off the BiPAP as the patient immediately desaturates even was taken pills or sips of water. He remains on TPN for nutritional support. His symptoms of his blood work today, he has white cell count of 9.8 with a hemoglobin of 12, sodium is 139 and a creatinine of 0.9. His current pulse ox on the percent on above-mentioned BiPAP setting with an FiO2 of 80%.Inflammatory markers are still elevated. D-dimer is at 5 and the patient also has an LDH level of 1009 with a CRP of 143.The chest x-ray from yesterday was showing worsening in the bilateral lower lobe pulmonary infiltrates especially in the right lower lobe. 07/03/2020 the patient remains on BiPAP at a pressure of 16/6 with an FiO2 of 80% and this is essentially the same setting as yesterday. His current vitals show a pulse ox of 94% on above-mentioned ventilator setting. He is afebrile. Breathing is nonlabored. He is still on TPN for nutritional support. His chest x-ray from 07/01/2020 showed peripheral pulmonary infiltrates consistent with Coumadin related pneumonia. No repeat x-rays since then. The patient remains considerably weak. His blood work from today showing no major electrolyte abnormalities. His LDH level was dropping yesterday down to 1009. He is still on Decadron 6 mg IV every 24 hours. He is also on Lovenox 45 mg subcu every 12 hours. On the BiPAP machine, degenerative tidal volumes around 400. 06/03/2020 this morning the patient is off the BiPAP and the patient is currently on a high flow oxygen 60 L with an FiO2 of 86%. The patient is also using 100% nonrebreather facemask. His current pulse ox is around 91%. He has developed skin breaks and ulceration from his BiPAP mask and is currently off the BiPAP. He is resting comfortably in bed. He is still on Lovenox 45 mg subcu every 12 hours. There is on steroids and the patient is receiving De cadron 6 mg IV every 24 hours. The patient is also on TPN for nutritional support. LDH level is at 893 which is lower than the CRP level is down to 50. He is quite weak and debilitated. His white cell count of 6.8 with a hemoglobin of 12.3. No fever. No other new complaints otherwise for now. Most recent d- dimer was at 5 from 07/02/2020. 07/05/2020, the patient remains on BiPAP. The patient was on high flow oxygen yesterday and desaturated and he decompensated and he was switched to a BiPAP at a pressure of 16/6 with an FiO2 of 80%. This occurred when the patient on was trying to have some breakfast earlier this morning. He was on high flow oxygen. He dropped his oxygen saturations significantly and he was very slow in recovery. At that point, he was switched to a BiPAP. His current pulse ox is 90%. He is quite lethargic and somnolent. He is unable to eat and he has TPN for nutritional support. He continues to be on Decadron 6 mg IV every 24 hours. He is also on Lovenox 45 mg subcutaneously every 12 hours. On his blood work, he had a d-dimer of 6.49 which is slightly higher than the white cell count is at 8.6 with a hemoglobin of 12.8. TPN is current to being administered for nutritional support. No other significant events , otherwise his night was uneventful.. The PICC line is in the left upper extremity. The patient also has a Kwan catheter in place. Each in relating a tidal volume of 550 and his respiratory rate is currently in the mid 30s. He seems to be quite comfortable. He is however lethargic. 07/06/2020, the patient is on a BiPAP at a pressure of 16/6 with an FiO2 of 100%. Pulse ox is currently at around 88%. He was having some oxygen desaturations and the patient was brought up to 100% on her BiPAP FiO2. The patient's subsequent reading in a pulse ox in the order of 91%. Remains on TPN for nutritional support. Remains on Decadron 6 mg IV every 24 hours. Remains on Lovenox 45 mg subcu every 12 hours. Blood work shows a d-dimer of 5.64. No electrolyte abnormalities. Condition is essentially unchanged and probably the same as yesterday. Still on Levemir insulin 10 units along with a sliding scale coverage. Blood sugars are adequate for now. He does have a PICC line in left upper extremity. He has a Kwan catheter in place. At around 10:00 this morning, the patient was trialed on the percent nonrebreather with a high flow oxygen at 60 L with an FiO2 of 90%. He desaturated to the low 60s and he was placed accordingly back on BiPAP. 07/07/2020 the patient is a same BiPAP setting which is 60/6 with an FiO2 of 95%. Earlier this morning she was trialed on high flow oxygen with 60 L and FiO2 of 90% and he decompensated and he became profoundly hypoxic and he had to be placed back on the BiPAP. His current pulse ox in the low 90s. He remains on IV Decadron 6 and the rescue 24 hours. He remains on Lovenox 45 mg subcu every 12 hours. Chest x-ray from today is showing stable bilateral interstitial pulmonary infiltrates with some worsening consolidation of the left lower lobe. Meanwhile, the patient is still receiving TPN for nutritional support. He is unable to take oral intake because of his extreme BiPAP dependence. D-dimer is at 4.06 and the patient is on Lovenox 45 mg subcu every 12 hours. He has also LDH level of 962, CRP level is at 8.3, electrolytes are all within normal limits. Unfortunately, he is still doing poorly and is not showing any signs of recovery. He remains on Levemir insulin 10 units daily along with a sliding- scale coverage. He has a Kwan catheter in place. Respiratory rate is in the mid 30s. He is quite lethargic. 2020, the patient continues to be on a BiPAP at a pressure of 16/6 with an FiO2 of 95%. Awake and alert. Slightly tachypneic. Pulse ox is 89% on the above-mentioned BiPAP setting. Minute ventilation as 40 L as we were seeing the patient and his minute ventilation with a. Otherwise his aspirate has been in the high 20s low 30 range. Whenever he sleeps, his respiratory rate goes down. He wants to stay on the BiPAP and he doesn't want to transition to the high flow oxygen today. Repeat chest x-ray was done and the findings are essentially stable with diffuse bilateral pulmonary infiltrates. No evidence of any pneumothorax. No interval progression or worsening his chest x-ray findings. Meanwhile, his blood work shows no major abnormalities. Blood sugars are not elevated. The patient remains on TPN for nutrition support and the patient remains on Decadron IV every 24 hours on Lovenox 45 mg subcu every 12 hours. D- dimer level is at 4.06. Patient was reevaluated today on 07/09/2020, remains on high flow oxygen using airvo and non-rebreather mask. Patient is on 94% FiO2 and 60 L flow per minute. Patient is about the same, not getting any better not getting any worse. He is noted to be slightly tachypneic. Has BiPAP at bedside, but not using it at present. Basic metabolic profile today is normal., Last LDH was trending down to 962 and C-reactive protein 8.3 Patient was reevaluated today on 07/10/2020, remains on high flow oxygen using Airvo and nonrebreather mask. O2 saturation remains marginal in the low 90s and high 80s patient denies being short of breath. He has intermittent cough. His d-dimer is 5.4 to today. Not significantly changed over the last 1 week. Basic metabolic profile is normal renal profile is normal. His last C-reactive protein was 8.3 and his LDH was 962 from 2 days ago. Chest x-ray from 07/08 continues to show persistent bilateral multifocal and comfortable in particular opacities consistent with COVID-19 infection. Patient was reevaluated today on 07/11/2020, remains on high flow oxygen, patient is on nonrebreather plus airvo 90% FiO2 and 60 L flow, O2 saturation remains marginal in the mid to high 80s. Patient in mild distress, but overall he thinks he is getting a bit better. Tried today to change position on the patient and see if his oxygenation improves, did not seem to make much of a difference, and the patient could not lay prone. He had even some difficulty laying on the right side. Remained generally weak, not making significant progress since admission. His CBC looks relatively normal his d-dimer is 5 renal profile is normal. Electrolytes are normal. Last chest x-ray from 2 days ago was consistent with COVID-19 pneumonia. On 07/12/2020 patient seen in follow-up on medical surgical floor, this morning his dyspnea and hypoxia have worsened, he is displaying decreasing oxygen saturations and increasing work of breathing. Patient has been on BiPAP support with pressures of 12 and 6 and 200%, and despite that patient is unable to maintain O2 saturations above 80-82%, he is quite tachypneic. Patient remains on multivitamins, steroids, and Lovenox 45 mg twice daily. He is status post Toci on 07/06/2020. He is receiving nutritional support in the form of TPN, his been unable to take in much by mouth related to his dyspnea, hypoxia, and dependence on high flow oxygen and BiPAP. Stat chest x-ray was obtained showing increasing confluence of airspace disease, and patient's steroids have been switched to Solu-Medrol 60 mg every 6 hours. Today's labs have been reviewed On 07/13/2020 patient seen in follow-up in the intensive care unit, he was trace to the ICU yesterday in view of worsening hypoxia and dyspnea, he is on BiPAP support pressures of 16/8 and FiO2 of 100%, and his pulse ox is 92%, he seems to be comfortable on those settings, breathing comfortably, appears to be in no respiratory distress. He does not tolerate being off the BiPAP and is very much dependent on BiPAP at this time, unable to take any oral meds or oral nutrition, PICC line was inserted in patient continues on TPN for nutritional support at a rate of 85 ML per hour, and lipids on the Thursday schedule, followed by registered dietitian. No other vasoactive drips, no other maintenance drips, hemodynamically he remains stable, he is in sinus mechanism, today's chest x-ray has been reviewed showing improvement in aeration, and patient is currently on IV steroids with Solu-Medrol 60 mg every 6 hours, and he remains on Lovenox 45 mg twice daily, all of his oral medications have been discontinued, and his Lopressor has been switched over to Lopressor IV 20 mg every 6 hours. No complaints of chest discomfort, no cough, lung sounds reveal diffuse crackles. He appears be fairly comfortable. Today's labs have been reviewed showing white blood cell count of 9.0, hemoglobin of 13.9, his d-dimer is improving and is down to 1.84, sodium is 135, the rest of the electrolytes were within normal limits, and BUN is up slightly, at 42, creatinine remains in the normal range of 0.71. LDH is 1492 uptrended a bit from previous value, and CRP is 0.8 On 07/14/2020 patient is seen in follow-up in intensive care unit, she remained BiPAP dependent at this time, BiPAP pressures of 16/8, and FiO2 100%, however he tolerates BiPAP support quite well, no agitation, no attempts to remove the mass, he is quite compliant, pulse ox on those settings is ranging from 93-96%, hemodynamically he is stable, has not had any vasopressor support, he is in sinus mechanism with a rate of 67, he is on 0.9 normal saline at a rate of 29 per hour, TPN is infusing at 85 MLS per hour, patient has not been able to come off the BiPAP support long enough to sustain his oral nutrition. He feels thirsty, and his been coming off the BiPAP mask only for oral care and sips of water. He is awake, he is alert oriented 3, denies acute distress, today's chest x-ray shows mixed interstitial and airspace disease within the lungs similar to the prior exam, no major change. Today's labs have been reviewed, doing a d-dimer slightly trending down, down to 1.25, LDH is 1305, down from yesterday, his CRP is normal at 0.7. Blood cultures have shown no growth. He remains on prophylactic dose Lovenox 40 mg daily, remains on Solu-Medrol 60 mg every 6 hours, he is on morphine as needed 2-4 mg every 4 hours for breathlessness and anxiety, and that has been helping him cope with the BiPAP support. No chest discomfort, no nausea vomiting or diarrhea no abdominal pain. On 07/16/2020 patient seen in follow-up in the intensive care unit, patient was able to lift the BiPAP support, and he is currently on Airvo at 60 L and FiO2 of 90% in addition to 100% nonrebreather mask, tolerating it well so far, he is awake and alert, oriented 3, he is able to taken some oral nutrition, no increased dyspnea, he is maintaining O2 saturations at around 90% on the above mentioned oxygen set up, he is afebrile, he is hemodynamically stable, not in any vasopressor support, he is on 0.9 normal saline at a rate of 20 ML per hour, his TPN has been discontinued. Today's chest x-ray shows bilateral interstitial and airspace disease similar in appearance to previous chest x-ray from yesterday. Today's blood work has been reviewed, showing orbital, 10.2, hemoglobin is 12.9, serum sodium is 135, the rest of electrolytes were unremarkable, BUN is 48, creatinine 0.74, his AST is 96, ALT is 182, worsened since yesterday, total bilirubin is 1.4, his LDH is CRP were not repeated today, but or improving on yesterday's labs. All blood cultures have been negative thus far. He remains on daily dose of Lovenox 40 mg daily, IV steroids 60 mg every 6 hours, and sliding scale insulin in addition to Levemir. Vital signs have been stable, no fever or chills, no nausea vomiting or diarrhea. On 07/17/2020 patient seen in follow-up in intensive care unit, she remains on Airvo at 60 L and FiO2 of 90% in addition to 100% nonrebreather mask and he is maintaining O2 saturations between 86-92%, he is breathing comfortably, no increased dyspnea or cough, vital signs have been stable, he has been afebrile. He is on 0.9 normal seen at 20 ML per hour, no other drips. Tolerating oral intake, TPN has been discontinued, today's labs have been reviewed showing white blood cell count 8.8, hemoglobin of 12.5, d-dimer is 1.48, sodium is 134, there is the rest of the electrolytes are unremarkable, BUN is 49 creatinine 0.83, LDH is 1279, CK is 39, CRP 0.7, laboratory markers are relatively stable. His cultures have been reviewed, all blood cultures have remained negative. He remains on Lovenox 40 mg daily, and IV Solu-Medrol at 60 mg every 6 hours On 07/18/2020 patient seen in follow-up in the intensive care unit, he remains on Airvo at 60 L and FiO2 of 90% in addition to 100% nonrebreather mask is pulse ox is 93-94%, his been off BiPAP support for last 48 hours, tolerating it well so far, tolerating oral intake, TPN has been discontinued, hemodynamically stable, he is afebrile. He did desaturate become short of breath with any exertion, still has a cough. No new chest x-ray today, yesterday chest x-ray showed bilateral interstitial and alveolar infiltrates. Continues on IV Solu- Medrol 60 mg every 6 hours, and prophylactic dose Lovenox. No acute events overnight. Today's labs have been reviewed, white blood cell count is 7.5, he moglobin is 13.4, yesterday's d-dimer was 1.48, serum sodium is 134, potassium is 5.2, BUN is 50 creatinine 0.86, LDH is CRP were improving on yesterday's labs. On 07/19/2020 patient seen in follow-up in the intensive care unit, he remains on Airvo at 60 L and FiO2 of 90%, his pulse ox is 88-93%, not using additional nonrebreather mask. He is resting comfortably in bed, today's chest x-ray shows bilateral airspace disease, and prominent interstitium, no evident pneumothorax or pleural effusion. Today's labs have been reviewed, white blood cell count is 8.0, hemoglobin is 14.2, platelet count is 87, today's d-dimer is 1.75, sodium is 135, potassium is 5.3, the rest of electrolytes were within normal limits, BUN is 53 creatinine 0.86, his LDH is 1438, CRP 0.6. Blood cultures are all negative. He remains on IV Solu-Medrol 60 mg every 6 hours, he is on prophylactic dose Lovenox. 0.9 normal seen at a rate of 20 ML per hour, no other drips, no vasopressor support. He is tolerating oral intake, no nausea vomiting or diarrhea. Objective - Vital Signs Vital signs: Vital Signs Temp 97.8 F 07/19/20 08:00 Pulse 85 07/19/20 10:00 Resp 16 07/19/20 10:00 BP 126/78 07/19/20 10:00 Pulse Ox 92 L 07/19/20 10:00 Intake & Output 07/18/20 07/19/20 07/19/20 18:59 06:59 18:59 Intake Total 150 120 0 Output Total 970 890 220 Balance -820 -770 -220 Weight 94.4 kg Intake: IV 0 Sodium Chloride 0.9% 1, 0 000 ml @ 20 mls/hr IV . Q24H [facility] Rx#:[id number] Oral 150 120 Output: Urine 970 890 220 Other: Voiding Method Indwelling Catheter Indwelling Catheter Indwelling Catheter - Exam GENERAL EXAM: Alert, very pleasant, 70-year-old white male, on Airvo at 60 L and FiO2 of 90%, maintaining O2 saturations around 92% HEAD: Normocephalic/atraumatic. EYES: Normal reaction of pupils, equal size. Conjunctiva pink, sclera white. NOSE: Clear with pink turbinates. THROAT: No erythema or exudates. NECK: No masses, no JVD, no thyroid enlargement, no adenopathy. CHEST: No chest wall deformity. Symmetrical expansion. LUNGS: Equal air entry with diminished breath sounds bilaterally, with bilateral base crackles CVS: Regular rate and rhythm, normal S1 and S2, no gallops, no murmurs, no rubs ABDOMEN: Soft, nontender. No hepatosplenomegaly, normal bowel sounds, no guarding or rigidity. EXTREMITIES: No clubbing, no edema, no cyanosis, 2+ pulses and upper and lower extremities. MUSCULOSKELETAL: Muscle strength and tone normal. SPINE: No scoliosis or deformity SKIN: No rashes CENTRAL NERVOUS SYSTEM: Alert and oriented -3. No focal deficits, tone is normal in all 4 extremities. PSYCHIATRIC: Alert and oriented -3. Appropriate affect. Intact judgment and insight. - Labs CBC & Chem 7: 07/19/20 05:17 07/19/20 05:17 Labs: Abnormal Lab Results - Last 24 Hours (Table) 07/18/20 07/18/20 07/18/20 Range/Units 12:03 16:50 19:51 Plt Count (150-450) k/uL Lymphocytes # (1.0-4.8) k/uL D-Dimer (<0.60) mg/L FEU Sodium (137-145) mmol/L Potassium (3.5-5.1) mmol/L BUN (9-20) mg/dL Glucose (74-99) mg/dL POC Glucose (mg/dL) 121 H 142 H 158 H (75-99) mg/dL Lactate Dehydrogenase (313-618) U/L 07/18/20 07/19/20 07/19/20 Range/Units 20:57 05:17 05:17 Plt Count 87 L (150-450) k/uL Lymphocytes # 0.3 L (1.0-4.8) k/uL D-Dimer 1.75 H (<0.60) mg/L FEU Sodium (137-145) mmol/L Potassium (3.5-5.1) mmol/L BUN (9-20) mg/dL Glucose (74-99) mg/dL POC Glucose (mg/dL) 151 H (75-99) mg/dL Lactate Dehydrogenase (313-618) U/L 07/19/20 07/19/20 Range/Units 05:17 06:30 Plt Count (150-450) k/uL Lymphocytes # (1.0-4.8) k/uL D-Dimer (<0.60) mg/L FEU Sodium 135 L (137-145) mmol/L Potassium 5.3 H (3.5-5.1) mmol/L BUN 53 H (9-20) mg/dL Glucose 132 H (74-99) mg/dL POC Glucose (mg/dL) 120 H (75-99) mg/dL Lactate Dehydrogenase 1438 H (313-618) U/L Assessment and Plan Plan: Assessment: #1. Acute hypoxemic respiratory failure secondary to COVID-19 pneumonia. Outside the window for Remdesivir, that is post Toci 800 mg on 07/06/2020 for worsening hypoxic respiratory failure, patient remains very much BiPAP dependent and has not tolerated transitioning to high flow oxygen very well, he required t ransfer to the intensive care unit today on 07/12/2020 and current BiPAP settings of 14/8 and FiO2 of 100%. Today on 07/19/2020 patient off BiPAP support and is currently on irritable at 60 L and FiO2 of 90% i #2. Increased inflammatory markers related to the above, improving #3. Increased d-dimer, lower extremity Dopplers showed no evidence of DVT, patient remains on Lovenox 45 mg twice daily and a d-dimer is improving #4. History of atrial fibrillation, paroxysmal and patient is not on any chronic anticoagulation #5. Coronary artery disease with previous stent placement #6. GERD/reflux #7. Hypertension #8. Hyperlipidemia #9. History of rheumatic fever #10. History of gout #11. Acute kidney injury recovered #12. Decreased oral intake and inability to sustain oral intake related to BiPAP device, and dependence on noninvasive ventilatory support, patient is currently on TPN for nutritional support. TPN has been discontinued, patient is tolerating oral diet today, he is off BiPAP support on 07/16/2020 Plan: Continue Airvo Wean FiO2 to keep O2 sats ration is at or above 90% May utilize BiPAP if develops respiratory fatigue Continue Solu-Medrol 60 mg every 6 hours Blood sugar monitoring Encourage oral intake, Today's labs have been noted, inflammatory markers and d-dimer noted, continue prophylactic dose Lovenox Provide incentive spirometer Overall prognosis is guarded I performed a history & physical examination of the patient and discussed their management with my nurse practitioner, Constance El. I reviewed the nurse practitioner's note and agree with the documented findings and plan of care. Lung sounds are positive for bibasilar crackles. The findings and the impression was discussed with the patient. I attest to the documentation by the nurse practitioner. Time with Patient: Less than 30
[2020-07-19 11:41] LABS: Glucose,Whole Blood 184 mg/dL (75-99)
[2020-07-19] MEDS: ALBUTEROL HFA INHALER INHALATION PRN ×2 (15:17→19:28)
[2020-07-19 17:01] LABS: Glucose,Whole Blood 103 mg/dL (75-99)
[2020-07-19] MEDS: SODIUM CHLORIDE 0.9% 1,000 ML IV SCH (17:07)
[2020-07-19 20:37] LABS: Glucose,Whole Blood 191 mg/dL (75-99)
[2020-07-19] MEDS: OLANZapine 7.5 MG TAB PO SCH (20:47)
[2020-07-20] MEDS: MORPHINE SULFATE 2 MG/ML SYRINGE IVP PRN ×2 (00:13→21:41)
[2020-07-20] MEDS: methylPREDNISolone SOD SUCCI 125 MG/2 ML VIAL IV SCH ×4 (00:14→16:56)
[2020-07-20 04:40] LABS: Basophils % (A) 0 %; Eosinophils % (A) 0 %; HCT 39.2 % (39.0-53.0); HGB 13.4 gm/dL (13.0-17.5); Lymphocytes # (A) 0.3 k/uL (1.0-4.8); Lymphocytes % (A) 4 %; MCHC 34.1 g/dL (31.0-37.0); MCV 90.9 fL (80.0-100.0); Mean Platelet Volume 8.8; Monocytes # (A) 0.4 k/uL (0-1.0); Monocytes % (A) 6 %; Neutrophils % (A) 90 %; RBC 4.31 m/uL (4.30-5.90); WBC 7.9 k/uL (3.8-10.6)
[2020-07-20 05:12] LABS: Platelet Count 83 k/uL (150-450)
[2020-07-20 05:26] LABS: ALT 109 U/L (4-49); AST 28 U/L (17-59); African American GFR (CKD) >90 (>60 ml/min/1.73 sqM); Albumin 2.7 g/dL (3.5-5.0); Alkaline Phosphatase 84 U/L (38-126); Anion Gap 4 mmol/L; Blood Urea Nitrogen 49 mg/dL (9-20); Calcium 8.4 mg/dL (8.4-10.2); Carbon Dioxide 28 mmol/L (22-30); Chloride 103 mmol/L (98-107); Glucose 110 mg/dL (74-99); Non-African American GFR(CKD) >90 (>60 ml/min/1.73 sqM); Potassium 4.9 mmol/L (3.5-5.1); Sodium 135 mmol/L (137-145); Total Bilirubin 1.2 mg/dL (0.2-1.3); Total Protein 5.1 g/dL (6.3-8.2)
[2020-07-20 06:55] LABS: Glucose,Whole Blood 107 mg/dL (75-99)
[2020-07-20] MEDS: INSULIN ASPART (NovoLOG) 100 UNIT/ML VIAL SQ SCH ×4 (07:02→21:38)
[2020-07-20] MEDS: ALBUTEROL HFA INHALER INHALATION PRN ×3 (07:20→19:40)
[2020-07-20] MEDS: FAMOTIDINE 20 MG TAB PO SCH ×2 (08:36→21:37)
[2020-07-20] MEDS: METOPROLOL TARTRATE 25 MG TAB PO SCH ×2 (08:36→21:37)
[2020-07-20] MEDS: ENOXAPARIN 40 MG/0.4 ML SYRINGE SQ SCH (08:36)
--- NOTE | 2020-07-20 09:32 | P.PN ---
Subjective Progress Note Date: 07/20/20 This is 70-year-old gentleman with past medical history of hypertension, and gastroesophageal reflux disease, CAD, IN, chronic back pain with history of laminectomy and multiple other medical issues presented to the ER with history of fevers ,worsening shortness of breath. Patient had seen his PCP last week on Thursday the and was recommended to go for his covid test. Patient apparently never went for his test. Yesterday completed a tele visit with his PCP, Dr. Encarnacion, referred to the ER. Patient tested positive for Covid infection while in the ER. On admission patient hypoxic with O2 sat of 80% on room air, required nonrebreather to maintain O2 sats in the 90s to 100%. Febrile on admission with temperature 99.9, normal WBC. D-dimer 2.41, sodium 132, BUN 52, creatinine 2.05, ferritin 1556.7 total bili elevated on admission now within normal limits, mildly elevated LFTs, LDH 2411currently 2018, CRP 158.4. Given patient's renal function and respiratory status unable to proceed with CTA of chest or VQ to rule out PE, currently on heparin drip. Chest x-ray reported partially consolidative opacity in the right lung base consistent with acute pneumonic process. Telemetry sinus rhythm with fusion complexes and PACs with left axis deviation. Denies chest pain, palpitations. 06/25/2020 during the night and again this morning patient removing his oxygen, desatting into the high 40s, turning blue, return to 15 L high flow in addition to nonrebreather, O2 sats initially in the high 80s. As the morning progressed, only maintaining O2 sats in the low 80s and transitioned to BiPAP mask. Chest x-ray reported diffuse bilateral patchy infiltrates stable. Denies chest pain, palpitations. Xanax administered for anxiety. Continue to develop more agitation attempting deplorable off mask. supervisor bottle house cleaners placed in room. Eventually patient required IV push Haldol. Patient now maintaining O2 sat of 94% on 100% BiPAP. Afebrile, WBC 14.8. Creatinine improving, 1.28. 06/26/2020 requiring 100% BiPAP to maintain O2 sats in the low 90s. T-max 102.6. WBC 14.9. Telemetry reporting Sinus Tachycardia with heart rates up into the 120s. Echo reported LV function 40-45% . Potassium 5.2, Renal function improving. Blood sugars controlled. Anxious, agitated, combative at times. Sitter remains at bedside. Receiving when necessary Haldol. Staff reports patient was asking for the bar mayandel, unclear if history of EtOH abuse, with questionable withdrawal. Psychiatry consult in place with recommendations pending. 06/27/2020 cook morning hours, significant agitation despite adjustment in med regimen. Received Ativan 1 mg IV push. Agitation lessened. Staff reports carmen ent was choking on water. Spiking fevers, T-max 100.5, labs pending. Taking O2 sats of 90 on 60% BiPAP. 06/28/2020 rough night with increased agitation and confusion despite Prolixin and Zyprexa. Reevaluated by psychiatry this morning with medication changes noted and appreciated. Unable to wean from 100% BiPAP, maintaining O2 sats of mid 80s to low 90s. Speech therapy unable to conduct swallow evaluation as patient unable to tolerate being off of BiPAP. Poor oral intake, renal function worsening. Sitter remains at bedside. Afebrile. 06/29/2020 100% BiPAP, maintaining O2 sats in the low 90s. Had a better night with less agitation, received Prolixin. Less confused this morning. Asking for ice chip. Complains of chronic back pain. Discussed CODE STATUS and patient wishes to remain a full code. Denies any chest pain, palpitations. BUN 43, creatinine 1.18. Received PICC line with TPN initiated yesterday. Blood sugars controlled. 07/02/2020 remains on 80% BiPAP, maintaining O2 sats in the high 80s. Minimal reserve-Unable to tolerate being off BiPAP mask . Receiving TPN via PICC line. Reporting that he is hungry.Calm, maintained on Zyprexa, prn Prolixin as per p sychiatry. Did not require Prolixin over the weekend. Sensorium significantly improved. Afebrile. D-dimer, LDH decreased, CRP increased. 07/03/2020 continue on 80% BiPAP, calm, maintaining O2 sats in the mid 90s. Hungry, asking for food, receiving TPN. Also asking for a writing board to co mmunicate easier. 07/04/2020 significant improvement in sensorium .weaned off of BiPAP currently maintaining O2 sats in the high 80s to low 90s on both high flow nasal cannula/nonrebreather. Productive cough. Continues on TPN with bites of food intermittently. Blood sugars ranging from 130 to 225. Continue on Covid cocktail including Decadron. Denies chest pain, palpitations. 07/05/2020 Staff reports patient desatted down into the 70s this morning within minutes of taken off mask (patient had been on 60L high flow nasal cannula and nonrebreather )to have a few bites of oatmeal. Slow recovery and 80% BiPAP mask reapplied. Receiving TPN via PICC line as well. Continues on Covid cocktail. Blood sugars better controlled on low-dose Levemir insulin. T-max 100.5, WBC 8.6. 07/06/2020 Desatted to the low 60s on high flow nasal cannula with nonrebreather. BiPAP 100% maintaining O2 sats of 89%. Maintained on TPN . Continues on Covid cocktail. Inflammatory markers remain elevated. Afebrile, T-max 99. Blood sugars controlled. 07/09/2020 Airvo/NRB, maintaining O2 sats in the high 80s. Afebrile. Blood sugars 160s to 190s. 07/10/2020 currently on high flow nasal cannula 60% and nonrebreather maintaining O2 sats 86-80%. Reports mild anxiety this morning. Afebrile. Labs pending. 07/16/2020 weaned off BiPAP today, currently maintained on 90% FiO2 Airvo + NRB maintaining O2 sats in the high 80s to low 90s.Chest x-ray reports bilateral interstitial and airspace disease similar to prior exam. Hemoglobin 12.9, Platelets 105. TPN discontinued, consistent carb diet initiated. Afebrile, normal WBC, blood cultures reporting no growth. T bili, AST, ALT worsened. Albumin 2.5. Continues on bronchodilators, IV steroids with blood sugars better controlled this morning. 07/17/2020 Maintained on FiO2 85% with O2 sats of 89-91%. Chest x-ray reporting stable bilateral interstitial and alveolar infiltrates. Sitting up in chair,teary-eyed over finally getting out of bed. Consuming 50% of breakfast with no nausea vomiting or diarrhea. Blood sugars controlled. Passing flatus. Mild delirium reported by staff, will re-initiate Zyprexa,as previously recommended per psychiatry. Afebrile, WBC 8.8. Hemoglobin 12.5, platelets 103. D-dimer was 0.48, sodium 134, BUN 29, creatinine 0.83. ALT 202. Ferritin decreased to 1138.4, CK 39, CRP 0.7. 07/18/2020 maintained on FiO2 90% with O2 sats 93-94%. Afebrile, normal WBC. Hemoglobin 13.4, platelets 94. Blood sugars controlled. Sodium 134., Potassium 5.2. 07/20/2020 maintained on 91% FiO2/airvo maintaining O2 sats of 90-94%. Chest x- ray pending. Telemetry sinus rhythm to sinus bradycardia with PACs. Tolerating diet with no nausea vomiting or diarrhea. Blood sugars controlled. Complaining of constipation and having to use bedpan, but severely weak, unable to stand even with a 2 person assist, requires a Shira lift to place in chair. Reinforced patient's need for subacute rehab at discharge. afebrile, normal WBC. Sensorium significantly improved, mild fluctuating delirium. Objective - Vital Signs Vital signs: Vital Signs Temp 98.4 F 07/20/20 00:00 Pulse 48 L 07/20/20 07:00 Resp 13 07/20/20 07:00 BP 128/73 07/20/20 07:00 Pulse Ox 92 L 07/20/20 07:21 Intake & Output 07/19/20 07/20/20 07/20/20 18:59 06:59 18:59 Intake Total 0 100 Output Total 770 705 50 Balance -770 -605 -50 Intake: IV 0 Sodium Chloride 0.9% 1, 0 000 ml @ 20 mls/hr IV . Q24H [facility] Rx#:[id number] Oral 100 Output: Urine 770 705 50 Other: Voiding Method Indwelling Catheter Indwelling Catheter - Exam GENERAL: Sitting up in bed, no acute distress, extremely weak CHEST EXAMINATION: Symmetrical expansion. Diminished, bibasilar crackles CARDIAC: Normal S1, S2 with no gallops. No murmurs ABDOMEN: Soft. Bowel sounds normal. No guarding. Positive bowel sounds Extremities: no edema. No clubbing or cyanosis. No calf pain. Neurologically: Cranial nerves II through XII grossly intact , no focal deficits, Moving all extremities. Skin: Warm and dry, no rashes. - Labs CBC & Chem 7: 07/20/20 04:13 07/20/20 04:13 Labs: Abnormal Lab Results - Last 24 Hours (Table) 07/19/20 07/19/20 07/19/20 Range/Units 11:40 16:59 20:36 Plt Count (150-450) k/uL Lymphocytes # (1.0-4.8) k/uL Sodium (137-145) mmol/L BUN (9-20) mg/dL Glucose (74-99) mg/dL POC Glucose (mg/dL) 184 H 103 H 191 H (75-99) mg/dL ALT (4-49) U/L Total Protein (6.3-8.2) g/dL Albumin (3.5-5.0) g/dL 07/20/20 07/20/20 07/20/20 Range/Units 04:13 04:13 06:54 Plt Count 83 L (150-450) k/uL Lymphocytes # 0.3 L (1.0-4.8) k/uL Sodium 135 L (137-145) mmol/L BUN 49 H (9-20) mg/dL Glucose 110 H (74-99) mg/dL POC Glucose (mg/dL) 107 H (75-99) mg/dL ALT 109 H (4-49) U/L Total Protein 5.1 L (6.3-8.2) g/dL Albumin 2.7 L (3.5-5.0) g/dL Assessment and Plan Assessment: Sepsis secondary to Acute Covid -19 pneumonia, status post TOCI Acute hypoxic respiratory failure secondary to the above, Acute delirium, acute metabolic encephalopathy secondary to the above, possibly acute hypoxic encephalopathy, medication induced, steroids, benzos, opiates. Possible steroid psychosis. Significantly improved. Acute renal failure secondary to the above, improving Hyperglycemia, steroid-induced Thrombocytopenia Gastroesophageal reflux disease Chronic paroxysmal atrial fibrillation Chronic systolic CHF, EF 35-40% Coronary artery disease with history of IN,stent placement Former nicotine dependence Hypertension Mild to moderate protein calorie malnutrition , status post TPN Plan: Continue on current medication regime ,monitoring and symptomatic treatment.PT/OT .Titration of FiO2. Aggressive pulmonary toileting with incenti ve spirometer reinforced . Significant weakness as mentioned above, patient will require subacute rehab at discharge .Transfer out of ICU today pending clearance from adult education teacher/oracle business intelligence developer.Prognosis guarded given multiple complex medical issues. The impression and plan of care has been dictated as directed. : I performed a history and examination of this patient, discussed the same with the dictator. I agree with the dictator's note ,documented as a scribe. Any additional findings or plans will be noted.
--- NOTE | 2020-07-20 10:26 | P.PN ---
Subjective Progress Note Date: 07/20/20 Principal diagnosis: Acute hypoxic respiratory failure secondary to COVID-19 pneumonia This is a 70-year-old gentleman that was seen in the emergency room on June 21. He was sent into the emergency room after being seen by his primary care doctor because of increasing shortness of breath, and concerns that the patient might have COVID 19. In addition to shortness of breath, the patient states he's been having lots of chest congestion, and is been coughing. When he coughs, it is painful in his chest. He has been sick for at least 2 weeks. In addition, he has muscle aches and joint aches, weakness and fatigue, and fever and chills. Currently, he is on a nonrebreather mask. Saturations are 92%. His primary care physician Dr. Vijay Encarnacion. He was not receiving any IV fluids. His primary medical problems include atrial fibrillation, coronary artery disease, hype rlipidemia, hypertension, gastroesophageal reflux disease, and prior myocardial infarction. The patient is a lifelong nontobacco user. White count is 4.9, hemoglobin 13.5, hematocrit 39.5, platelet count 92,000. PTT 61.3. D-dimer 2.41. Sodium 132, potassium 4.8, chloride 105, CO2 18, anion gap 9, BUN and creatinine 52 and 2.05. Calcium 7.6, AST 156, pO2 102, LDH 2018. C-reactive protein 158. I was not able to look at the chest x-ray. There is apparently a partially occlusive opacity at the right lung base consistent with acute pneumonic process. CT angiogram was not performed. Patient was reevaluated today on 06/23/2020, patient is feeling better today compared to how he felt yesterday. Patient is on high flow cannula running at 15 L/m, his O2 saturation is in the mid to high 80s he is on 100% FiO2 basically. His chest x-ray does not seem to be impressive, he does have consoli dative opacity in the right lung base consistent with acute pneumonic process. Left lung is relatively clear. No significant pulmonary congestion. D-dimer is 2.56. Renal profile is not good enough for performing a CT angiogram of the chest, however I will recommend bilateral venous Doppler on this patient just to make sure we were not dealing with thromboembolic process. Again the patient tells me that his feeling better today compared to how he felt yesterday. Clinically improving. Patient was reevaluated today on 06/24/2020, patient remains on high flow oxygen. He is on 15 L high flow cannula, and his O2 saturations 92% at best. Patient continues to have shortness of breath, intermittent episodes of cough. He has no fever, his vital signs are relatively stable. During my evaluation, patient was constantly coughing. CBC is relatively normal electrolytes are normal BUN is 52 creatinine 1.45. LDH is elevated at 1586. Venous Doppler yesterday was negative. Chest x-ray on admission showed consolidation at the right lung base. I also suspect some consolidation at the left base/retrocardiac area. Progress note dated 06/25/2020. Currently, the patient was on BiPAP and on percent. Earlier today, he desaturated, and the nurses had a hard time getting his saturations back up. We did do a blood gas on the patient. PO2 was 63, pCO2 was 33, pH was 7.44. That was on 100% on the BiPAP. White count 14.8, hemoglobin hematocrit and platelet count all normal. Sodium 136, potassium 4.9, chlorides 107, CO2 20, anion gap 9, BUN 45, creatinine 1.28. Chest x-ray today showed diffuse bilateral patchy infiltrates which are stable. Yesterday, he was on high flow nasal O2 at 15 L/m. Progress note dated 06/26/2020. 70-year-old male, currently on BiPAP, at 16/6 and 80%. His saturations were good, so the FiO2 was dropped from 80% down to 60%. The patient appears to be d oing reasonably well, although he did become somewhat tachypnea today when he was being evaluated here. Saturations are 90% on the 60% FiO2. Temperature is 98.1, and blood pressure 173/104. White count 14.9, and hemoglobin, hematocrit, and platelet count are all normal. Sodium 135, potassium 5.2, chlorides 106, CO2 18, anion gap 11, BUN 38, creatinine 1.23. Chest x-ray from June 25, shows bilateral patchy infiltrates. The patient is seen today 06/27/2020 in follow-up on the regular medical floor. He is currently resting fairly comfortably in bed. He is maintaining O2 saturation in the 90s on BiPAP 16/6 and 60% FiO2. 0.9 normal saline at 50 MLS per hour. Chest x-ray continues to show patchy bilateral infiltrates compatible with superimposed interstitial pneumonia. White count 8.3. Hemoglobin 13.4. Sodium 139. Potassium 5.6. Creatinine 1.13. He is continued on dexamethasone, Xarelto, vitamin supplements. The patient is seen today 06/28/2020 follow-up on the selective care unit. He is currently sitting up in bed. Remains on BiPAP 16/6 and 100% FiO2 maintaining O2 saturation the high 80s low 90s. He is 0.9 normal saline at 50 MLS per hour. He is now on Lovenox, dexamethasone, vitamin supplements. PICC line placed today. The patient is seen today 06/29/2020 follow-up on the selective care unit. He remains on BiPAP 16/6 and 100% FiO2 to maintain O2 saturations in the low 90s. He is afebrile. Currently being nourished with TPN via PICC line. 0.9 normal saline at 50 ML's per hour. Blood cultures reveal no growth. Sodium 140. Potassium 5.1. Creatinine 1.18. Glucose 125. He remains on dexamethasone, Lovenox, vitamin supplements. The patient is seen today 06/30/2020 follow-up on the selective care unit. He is currently resting fairly comfortably in bed. Remains on BiPAP 16/6 at 100% FiO2. He is being nourished with TPN and lipids via PICC line. 0.9 normal saline at 50 MLS per hour. He states he is still quite fatigued but improved today compared to yesterday. Cultures reveal no growth. D-dimer 10.2. Sodium 140. Potassium 5.2. Creatinine 0.99. LDH 1591. C-reactive protein 53.8. He remains on therapeutic Lovenox, dexamethasone, vitamin supplements. The patient is seen today 07/01/2020 in follow-up on the selective care unit. He is resting comfortably in bed. Continued on BiPAP 16/6 and 100% FiO2 to maintain O2 saturations in the high 80s low 90s. Chest x-ray continues to show scattered bilateral lung infiltrates which are stable compared to previous. Sodium 142. Potassium 4.8. Creatinine 0.95. Yesterday's d-dimer 10.23. Remains on therapeutic Lovenox at 100 mg subcu every 12 hours, Decadron, vitamin supplements. On today's evaluation of 07/02/2020 on seeing the patient for a follow-up. The patient remains on a BiPAP at a pressure of 16/6 cm of water and FiO2 of 80%. The patient is also receiving TPN for nutritional support. Therapeutic dose of Lovenox. His d-dimer was quite elevated at 10.2, normal renal function, normal electrolytes, CRP was elevated at 53 with an LDH level of 1591. Most recent chest x-ray from 07/01/2030 showing peripherally located infiltrates bilaterally. The patient is able to generate tidal volume of around 370 on the BiPAP machine. His extremities around 28. He is very weak. He cannot tolerate being off the BiPAP as the patient immediately desaturates even was taken pills or sips of water. He remains on TPN for nutritional support. His symptoms of his blood work today, he has white cell count of 9.8 with a hemoglobin of 12, sodium is 139 and a creatinine of 0.9. His current pulse ox on the percent on above-mentioned BiPAP setting with an FiO2 of 80%.Inflammatory markers are still elevated. D-dimer is at 5 and the patient also has an LDH level of 1009 with a CRP of 143.The chest x-ray from yesterday was showing worsening in the bilateral lower lobe pulmonary infiltrates especially in the right lower lobe. 07/03/2020 the patient remains on BiPAP at a pressure of 16/6 with an FiO2 of 80% and this is essentially the same setting as yesterday. His current vitals show a pulse ox of 94% on above-mentioned ventilator setting. He is afebrile. Breathing is nonlabored. He is still on TPN for nutritional support. His chest x-ray from 07/01/2020 showed peripheral pulmonary infiltrates consistent with Coumadin related pneumonia. No repeat x-rays since then. The patient remains considerably weak. His blood work from today showing no major electrolyte abnormalities. His LDH level was dropping yesterday down to 1009. He is still on Decadron 6 mg IV every 24 hours. He is also on Lovenox 45 mg subcu every 12 hours. On the BiPAP machine, degenerative tidal volumes around 400. 06/03/2020 this morning the patient is off the BiPAP and the patient is currently on a high flow oxygen 60 L with an FiO2 of 86%. The patient is also using 100% nonrebreather facemask. His current pulse ox is around 91%. He has developed skin breaks and ulceration from his BiPAP mask and is currently off the BiPAP. He is resting comfortably in bed. He is still on Lovenox 45 mg subcu every 12 hours. There is on steroids and the patient is receiving De cadron 6 mg IV every 24 hours. The patient is also on TPN for nutritional support. LDH level is at 893 which is lower than the CRP level is down to 50. He is quite weak and debilitated. His white cell count of 6.8 with a hemoglobin of 12.3. No fever. No other new complaints otherwise for now. Most recent d- dimer was at 5 from 07/02/2020. 07/05/2020, the patient remains on BiPAP. The patient was on high flow oxygen yesterday and desaturated and he decompensated and he was switched to a BiPAP at a pressure of 16/6 with an FiO2 of 80%. This occurred when the patient on was trying to have some breakfast earlier this morning. He was on high flow oxygen. He dropped his oxygen saturations significantly and he was very slow in recovery. At that point, he was switched to a BiPAP. His current pulse ox is 90%. He is quite lethargic and somnolent. He is unable to eat and he has TPN for nutritional support. He continues to be on Decadron 6 mg IV every 24 hours. He is also on Lovenox 45 mg subcutaneously every 12 hours. On his blood work, he had a d-dimer of 6.49 which is slightly higher than the white cell count is at 8.6 with a hemoglobin of 12.8. TPN is current to being administered for nutritional support. No other significant events , otherwise his night was uneventful.. The PICC line is in the left upper extremity. The patient also has a Kwan catheter in place. Each in relating a tidal volume of 550 and his respiratory rate is currently in the mid 30s. He seems to be quite comfortable. He is however lethargic. 07/06/2020, the patient is on a BiPAP at a pressure of 16/6 with an FiO2 of 100%. Pulse ox is currently at around 88%. He was having some oxygen desaturations and the patient was brought up to 100% on her BiPAP FiO2. The patient's subsequent reading in a pulse ox in the order of 91%. Remains on TPN for nutritional support. Remains on Decadron 6 mg IV every 24 hours. Remains on Lovenox 45 mg subcu every 12 hours. Blood work shows a d-dimer of 5.64. No electrolyte abnormalities. Condition is essentially unchanged and probably the same as yesterday. Still on Levemir insulin 10 units along with a sliding scale coverage. Blood sugars are adequate for now. He does have a PICC line in left upper extremity. He has a Kwan catheter in place. At around 10:00 this morning, the patient was trialed on the percent nonrebreather with a high flow oxygen at 60 L with an FiO2 of 90%. He desaturated to the low 60s and he was placed accordingly back on BiPAP. 07/07/2020 the patient is a same BiPAP setting which is 60/6 with an FiO2 of 95%. Earlier this morning she was trialed on high flow oxygen with 60 L and FiO2 of 90% and he decompensated and he became profoundly hypoxic and he had to be placed back on the BiPAP. His current pulse ox in the low 90s. He remains on IV Decadron 6 and the rescue 24 hours. He remains on Lovenox 45 mg subcu every 12 hours. Chest x-ray from today is showing stable bilateral interstitial pulmonary infiltrates with some worsening consolidation of the left lower lobe. Meanwhile, the patient is still receiving TPN for nutritional support. He is unable to take oral intake because of his extreme BiPAP dependence. D-dimer is at 4.06 and the patient is on Lovenox 45 mg subcu every 12 hours. He has also LDH level of 962, CRP level is at 8.3, electrolytes are all within normal limits. Unfortunately, he is still doing poorly and is not showing any signs of recovery. He remains on Levemir insulin 10 units daily along with a sliding- scale coverage. He has a Kwan catheter in place. Respiratory rate is in the mid 30s. He is quite lethargic. 2020, the patient continues to be on a BiPAP at a pressure of 16/6 with an FiO2 of 95%. Awake and alert. Slightly tachypneic. Pulse ox is 89% on the above-mentioned BiPAP setting. Minute ventilation as 40 L as we were seeing the patient and his minute ventilation with a. Otherwise his aspirate has been in the high 20s low 30 range. Whenever he sleeps, his respiratory rate goes down. He wants to stay on the BiPAP and he doesn't want to transition to the high flow oxygen today. Repeat chest x-ray was done and the findings are essentially stable with diffuse bilateral pulmonary infiltrates. No evidence of any pneumothorax. No interval progression or worsening his chest x-ray findings. Meanwhile, his blood work shows no major abnormalities. Blood sugars are not elevated. The patient remains on TPN for nutrition support and the patient remains on Decadron IV every 24 hours on Lovenox 45 mg subcu every 12 hours. D- dimer level is at 4.06. Patient was reevaluated today on 07/09/2020, remains on high flow oxygen using airvo and non-rebreather mask. Patient is on 94% FiO2 and 60 L flow per minute. Patient is about the same, not getting any better not getting any worse. He is noted to be slightly tachypneic. Has BiPAP at bedside, but not using it at present. Basic metabolic profile today is normal., Last LDH was trending down to 962 and C-reactive protein 8.3 Patient was reevaluated today on 07/10/2020, remains on high flow oxygen using Airvo and nonrebreather mask. O2 saturation remains marginal in the low 90s and high 80s patient denies being short of breath. He has intermittent cough. His d-dimer is 5.4 to today. Not significantly changed over the last 1 week. Basic metabolic profile is normal renal profile is normal. His last C-reactive protein was 8.3 and his LDH was 962 from 2 days ago. Chest x-ray from 07/08 continues to show persistent bilateral multifocal and comfortable in particular opacities consistent with COVID-19 infection. Patient was reevaluated today on 07/11/2020, remains on high flow oxygen, patient is on nonrebreather plus airvo 90% FiO2 and 60 L flow, O2 saturation remains marginal in the mid to high 80s. Patient in mild distress, but overall he thinks he is getting a bit better. Tried today to change position on the patient and see if his oxygenation improves, did not seem to make much of a difference, and the patient could not lay prone. He had even some difficulty laying on the right side. Remained generally weak, not making significant progress since admission. His CBC looks relatively normal his d-dimer is 5 renal profile is normal. Electrolytes are normal. Last chest x-ray from 2 days ago was consistent with COVID-19 pneumonia. On 07/12/2020 patient seen in follow-up on medical surgical floor, this morning his dyspnea and hypoxia have worsened, he is displaying decreasing oxygen saturations and increasing work of breathing. Patient has been on BiPAP support with pressures of 12 and 6 and 200%, and despite that patient is unable to maintain O2 saturations above 80-82%, he is quite tachypneic. Patient remains on multivitamins, steroids, and Lovenox 45 mg twice daily. He is status post Toci on 07/06/2020. He is receiving nutritional support in the form of TPN, his been unable to take in much by mouth related to his dyspnea, hypoxia, and dependence on high flow oxygen and BiPAP. Stat chest x-ray was obtained showing increasing confluence of airspace disease, and patient's steroids have been switched to Solu-Medrol 60 mg every 6 hours. Today's labs have been reviewed On 07/13/2020 patient seen in follow-up in the intensive care unit, he was trace to the ICU yesterday in view of worsening hypoxia and dyspnea, he is on BiPAP support pressures of 16/8 and FiO2 of 100%, and his pulse ox is 92%, he seems to be comfortable on those settings, breathing comfortably, appears to be in no respiratory distress. He does not tolerate being off the BiPAP and is very much dependent on BiPAP at this time, unable to take any oral meds or oral nutrition, PICC line was inserted in patient continues on TPN for nutritional support at a rate of 85 ML per hour, and lipids on the Thursday schedule, followed by registered dietitian. No other vasoactive drips, no other maintenance drips, hemodynamically he remains stable, he is in sinus mechanism, today's chest x-ray has been reviewed showing improvement in aeration, and patient is currently on IV steroids with Solu-Medrol 60 mg every 6 hours, and he remains on Lovenox 45 mg twice daily, all of his oral medications have been discontinued, and his Lopressor has been switched over to Lopressor IV 20 mg every 6 hours. No complaints of chest discomfort, no cough, lung sounds reveal diffuse crackles. He appears be fairly comfortable. Today's labs have been reviewed showing white blood cell count of 9.0, hemoglobin of 13.9, his d-dimer is improving and is down to 1.84, sodium is 135, the rest of the electrolytes were within normal limits, and BUN is up slightly, at 42, creatinine remains in the normal range of 0.71. LDH is 1492 uptrended a bit from previous value, and CRP is 0.8 On 07/14/2020 patient is seen in follow-up in intensive care unit, she remained BiPAP dependent at this time, BiPAP pressures of 16/8, and FiO2 100%, however he tolerates BiPAP support quite well, no agitation, no attempts to remove the mass, he is quite compliant, pulse ox on those settings is ranging from 93-96%, hemodynamically he is stable, has not had any vasopressor support, he is in sinus mechanism with a rate of 67, he is on 0.9 normal saline at a rate of 29 per hour, TPN is infusing at 85 MLS per hour, patient has not been able to come off the BiPAP support long enough to sustain his oral nutrition. He feels thirsty, and his been coming off the BiPAP mask only for oral care and sips of water. He is awake, he is alert oriented 3, denies acute distress, today's chest x-ray shows mixed interstitial and airspace disease within the lungs similar to the prior exam, no major change. Today's labs have been reviewed, doing a d-dimer slightly trending down, down to 1.25, LDH is 1305, down from yesterday, his CRP is normal at 0.7. Blood cultures have shown no growth. He remains on prophylactic dose Lovenox 40 mg daily, remains on Solu-Medrol 60 mg every 6 hours, he is on morphine as needed 2-4 mg every 4 hours for breathlessness and anxiety, and that has been helping him cope with the BiPAP support. No chest discomfort, no nausea vomiting or diarrhea no abdominal pain. On 07/16/2020 patient seen in follow-up in the intensive care unit, patient was able to lift the BiPAP support, and he is currently on Airvo at 60 L and FiO2 of 90% in addition to 100% nonrebreather mask, tolerating it well so far, he is awake and alert, oriented 3, he is able to taken some oral nutrition, no increased dyspnea, he is maintaining O2 saturations at around 90% on the above mentioned oxygen set up, he is afebrile, he is hemodynamically stable, not in any vasopressor support, he is on 0.9 normal saline at a rate of 20 ML per hour, his TPN has been discontinued. Today's chest x-ray shows bilateral interstitial and airspace disease similar in appearance to previous chest x-ray from yesterday. Today's blood work has been reviewed, showing orbital, 10.2, hemoglobin is 12.9, serum sodium is 135, the rest of electrolytes were unremarkable, BUN is 48, creatinine 0.74, his AST is 96, ALT is 182, worsened since yesterday, total bilirubin is 1.4, his LDH is CRP were not repeated today, but or improving on yesterday's labs. All blood cultures have been negative thus far. He remains on daily dose of Lovenox 40 mg daily, IV steroids 60 mg every 6 hours, and sliding scale insulin in addition to Levemir. Vital signs have been stable, no fever or chills, no nausea vomiting or diarrhea. On 07/17/2020 patient seen in follow-up in intensive care unit, she remains on Airvo at 60 L and FiO2 of 90% in addition to 100% nonrebreather mask and he is maintaining O2 saturations between 86-92%, he is breathing comfortably, no increased dyspnea or cough, vital signs have been stable, he has been afebrile. He is on 0.9 normal seen at 20 ML per hour, no other drips. Tolerating oral intake, TPN has been discontinued, today's labs have been reviewed showing white blood cell count 8.8, hemoglobin of 12.5, d-dimer is 1.48, sodium is 134, there is the rest of the electrolytes are unremarkable, BUN is 49 creatinine 0.83, LDH is 1279, CK is 39, CRP 0.7, laboratory markers are relatively stable. His cultures have been reviewed, all blood cultures have remained negative. He remains on Lovenox 40 mg daily, and IV Solu-Medrol at 60 mg every 6 hours On 07/18/2020 patient seen in follow-up in the intensive care unit, he remains on Airvo at 60 L and FiO2 of 90% in addition to 100% nonrebreather mask is pulse ox is 93-94%, his been off BiPAP support for last 48 hours, tolerating it well so far, tolerating oral intake, TPN has been discontinued, hemodynamically stable, he is afebrile. He did desaturate become short of breath with any exertion, still has a cough. No new chest x-ray today, yesterday chest x-ray showed bilateral interstitial and alveolar infiltrates. Continues on IV Solu- Medrol 60 mg every 6 hours, and prophylactic dose Lovenox. No acute events overnight. Today's labs have been reviewed, white blood cell count is 7.5, he moglobin is 13.4, yesterday's d-dimer was 1.48, serum sodium is 134, potassium is 5.2, BUN is 50 creatinine 0.86, LDH is CRP were improving on yesterday's labs. On 07/19/2020 patient seen in follow-up in the intensive care unit, he remains on Airvo at 60 L and FiO2 of 90%, his pulse ox is 88-93%, not using additional nonrebreather mask. He is resting comfortably in bed, today's chest x-ray shows bilateral airspace disease, and prominent interstitium, no evident pneumothorax or pleural effusion. Today's labs have been reviewed, white blood cell count is 8.0, hemoglobin is 14.2, platelet count is 87, today's d-dimer is 1.75, sodium is 135, potassium is 5.3, the rest of electrolytes were within normal limits, BUN is 53 creatinine 0.86, his LDH is 1438, CRP 0.6. Blood cultures are all negative. He remains on IV Solu-Medrol 60 mg every 6 hours, he is on prophylactic dose Lovenox. 0.9 normal seen at a rate of 20 ML per hour, no other drips, no vasopressor support. He is tolerating oral intake, no nausea vomiting or diarrhea. On 07/20/2000 patient seen in follow-up in intensive care unit, he is on Airvo at 60 L and FiO2 of 90%, his O2 saturation right now is around 90%, he easily desaturates with any activity, at times has to use the nonrebreather mask periods increased dyspnea. No IV fluids, today's chest x-ray shows bilateral airspace disease, prominence of interstitium again noted. Today's labs have been noted, his white blood count, 7.9, hemoglobin is 13.4, lymphocyte count is 0.3, his last d-dimer yesterday was 1.75, sodium is 135, the rest of his electrolytes were unremarkable, his BUN is 49, creatinine is 0.81. Patient continues on IV Solu-Medrol 60 mg every 6 hours, he is on Lovenox 40 mg daily, he is on 0.9 normal saline at a rate of 20 ML per hour, no other drips, he is tolerating oral intake, no nausea vomiting or diarrhea. Objective - Vital Signs Vital signs: Vital Signs Temp 98.1 F 07/20/20 08:00 Pulse 57 L 07/20/20 08:00 Resp 11 L 07/20/20 08:00 BP 125/69 07/20/20 08:00 Pulse Ox 95 07/20/20 08:00 Intake & Output 07/19/20 07/20/20 07/20/20 18:59 06:59 18:59 Intake Total 0 100 Output Total 770 705 150 Balance -770 -605 -150 Intake: IV 0 Sodium Chloride 0.9% 1, 0 000 ml @ 20 mls/hr IV . Q24H COUNTS INCLUDE 234 BEDS AT THE [facility] Rx#:[id number] Oral 100 Output: Urine 770 [id number] 150 Other: Voiding Method Indwelling Catheter Indwelling Catheter - Exam GENERAL EXAM: Alert, very pleasant, 70-year-old white male, on Airvo at 60 L and FiO2 of 90%, maintaining O2 saturations around 92% HEAD: Normocephalic/atraumatic. EYES: Normal reaction of pupils, equal size. Conjunctiva pink, sclera white. NOSE: Clear with pink turbinates. THROAT: No erythema or exudates. NECK: No masses, no JVD, no thyroid enlargement, no adenopathy. CHEST: No chest wall deformity. Symmetrical expansion. LUNGS: Equal air entry with diminished breath sounds bilaterally, with bilateral base crackles CVS: Regular rate and rhythm, normal S1 and S2, no gallops, no murmurs, no rubs ABDOMEN: Soft, nontender. No hepatosplenomegaly, normal bowel sounds, no guarding or rigidity. EXTREMITIES: No clubbing, no edema, no cyanosis, 2+ pulses and upper and lower extremities. MUSCULOSKELETAL: Muscle strength and tone normal. SPINE: No scoliosis or deformity SKIN: No rashes CENTRAL NERVOUS SYSTEM: Alert and oriented -3. No focal deficits, tone is normal in all 4 extremities. PSYCHIATRIC: Alert and oriented -3. Appropriate affect. Intact judgment and insight. - Labs CBC & Chem 7: 07/20/20 04:13 07/20/20 04:13 Labs: Abnormal Lab Results - Last 24 Hours (Table) 07/19/20 07/19/20 07/19/20 Range/Units 11:40 16:59 20:36 Plt Count (150-450) k/uL Lymphocytes # (1.0-4.8) k/uL Sodium (137-145) mmol/L BUN (9-20) mg/dL Glucose (74-99) mg/dL POC Glucose (mg/dL) 184 H 103 H 191 H (75-99) mg/dL ALT (4-49) U/L Total Protein (6.3-8.2) g/dL Albumin (3.5-5.0) g/dL 07/20/20 07/20/20 07/20/20 Range/Units 04:13 04:13 06:54 Plt Count 83 L (150-450) k/uL Lymphocytes # 0.3 L (1.0-4.8) k/uL Sodium 135 L (137-145) mmol/L BUN 49 H (9-20) mg/dL Glucose 110 H (74-99) mg/dL POC Glucose (mg/dL) 107 H (75-99) mg/dL ALT 109 H (4-49) U/L Total Protein 5.1 L (6.3-8.2) g/dL Albumin 2.7 L (3.5-5.0) g/dL Assessment and Plan Plan: Assessment: #1. Acute hypoxemic respiratory failure secondary to COVID-19 pneumonia. Outside the window for Remdesivir, that is post Toci 800 mg on 07/06/2020 for worsening hypoxic respiratory failure, patient remains very much BiPAP dependent and has not tolerated transitioning to high flow oxygen very well, he required transfer to the intensive care unit today on 07/12/2020 and current BiPAP settings of 14/8 and FiO2 of 100%. Today on 07/19/2020 patient off BiPAP support and is currently on irritable at 60 L and FiO2 of 90% i #2. Increased inflammatory markers related to the above, improving #3. Increased d-dimer, lower extremity Dopplers showed no evidence of DVT, patient remains on Lovenox 45 mg twice daily and a d-dimer is improving #4. History of atrial fibrillation, paroxysmal and patient is not on any chroni c anticoagulation #5. Coronary artery disease with previous stent placement #6. GERD/reflux #7. Hypertension #8. Hyperlipidemia #9. History of rheumatic fever #10. History of gout #11. Acute kidney injury recovered #12. Decreased oral intake and inability to sustain oral intake related to BiPAP device, and dependence on noninvasive ventilatory support, patient is currently on TPN for nutritional support. TPN has been discontinued, patient is tolerating oral diet today, he is off BiPAP support on 07/16/2020 Plan: Continue Airvo, wean FiO2 to keep O2 sats ration is at or above 90% Saturations have been marginal, and there has not been much progress in terms of weaning FiO2 Continue Solu-Medrol 60 mg every 6 hours Blood sugar monitoring Encourage oral intake, Today's labs have been noted, inflammatory markers and d-dimer noted, continue prophylactic dose Lovenox Provide incentive spirometer Overall prognosis is guarded I performed a history & physical examination of the patient and discussed their management with my nurse practitioner, Constance El. I reviewed the nurse practitioner's note and agree with the documented findings and plan of care. Lung sounds are positive for bibasilar crackles. The findings and the impression was discussed with the patient. I attest to the documentation by the nurse practitioner. Time with Patient: Greater than 30
--- NOTE | 2020-07-20 10:48 | XR ---
EXAMINATION TYPE: XR chest 1V portable DATE OF EXAM: 07/20/2020 COMPARISON: Chest x-ray 07/19/2020 HISTORY: Rhonchi, abnormal chest x-ray, abnormal physical exam TECHNIQUE: Single frontal view of the chest is obtained. FINDINGS: The interstitial and airspace disease seen in bilateral lung shows a similar appearance. N o evident pneumothorax or sizable effusion. Left-sided PICC line is stable. Cardiomediastinal silhoue tte is within normal limits. Aorta is dense. IMPRESSION: Findings are similar, correlate for pneumonia
[2020-07-20] MEDS: SENNOSIDES-DOCUSATE SODIUM 1 EACH TAB PO SCH ×2 (11:18→21:37)
[2020-07-20] MEDS: DOCUSATE 100 MG CAP PO SCH ×2 (11:18→21:37)
[2020-07-20] MEDS: INSULIN DETEMIR (LEVEMIR) 100 UNIT/ML SYR SQ SCH (11:18)
[2020-07-20 11:23] LABS: Glucose,Whole Blood 248 mg/dL (75-99)
[2020-07-20] MEDS: SODIUM CHLORIDE 0.9% 1,000 ML IV SCH (16:10)
[2020-07-20 16:50] LABS: Glucose,Whole Blood 130 mg/dL (75-99)
[2020-07-20 20:53] LABS: Glucose,Whole Blood 242 mg/dL (75-99)
[2020-07-20] MEDS: OLANZapine 7.5 MG TAB PO SCH (21:38)
[2020-07-21] MEDS: methylPREDNISolone SOD SUCCI 125 MG/2 ML VIAL IV SCH ×4 (00:32→17:10)
[2020-07-21] MEDS: MORPHINE SULFATE 2 MG/ML SYRINGE IVP PRN ×2 (00:32→15:19)
[2020-07-21 06:46] LABS: Glucose,Whole Blood 134 mg/dL (75-99)
[2020-07-21] MEDS: INSULIN DETEMIR (LEVEMIR) 100 UNIT/ML SYR SQ SCH (07:02)
[2020-07-21] MEDS: INSULIN ASPART (NovoLOG) 100 UNIT/ML VIAL SQ SCH ×4 (07:03→21:33)
[2020-07-21] MEDS: ALBUTEROL HFA INHALER INHALATION PRN ×3 (07:42→15:05)
[2020-07-21] MEDS: allopurinoL 100 MG TAB PO SCH (09:36)
[2020-07-21] MEDS: FAMOTIDINE 20 MG TAB PO SCH ×2 (09:37→21:32)
[2020-07-21] MEDS: ENOXAPARIN 40 MG/0.4 ML SYRINGE SQ SCH (09:37)
[2020-07-21] MEDS: DOCUSATE 100 MG CAP PO SCH ×2 (09:37→21:32)
[2020-07-21] MEDS: METOPROLOL TARTRATE 25 MG TAB PO SCH ×2 (09:37→21:32)
[2020-07-21] MEDS: SENNOSIDES-DOCUSATE SODIUM 1 EACH TAB PO SCH ×2 (09:39→21:32)
[2020-07-21 11:13] LABS: Glucose,Whole Blood 255 mg/dL (75-99)
--- NOTE | 2020-07-21 11:16 | P.PN ---
Subjective Progress Note Date: 07/21/20 Principal diagnosis: Acute hypoxic respiratory failure secondary to COVID-19 pneumonia This is a 70-year-old gentleman that was seen in the emergency room on June 21. He was sent into the emergency room after being seen by his primary care doctor because of increasing shortness of breath, and concerns that the patient might have COVID 19. In addition to shortness of breath, the patient states he's been having lots of chest congestion, and is been coughing. When he coughs, it is painful in his chest. He has been sick for at least 2 weeks. In addition, he has muscle aches and joint aches, weakness and fatigue, and fever and chills. Currently, he is on a nonrebreather mask. Saturations are 92%. His primary care physician Dr. Vijay Encarnacion. He was not receiving any IV fluids. His primary medical problems include atrial fibrillation, coronary artery disease, hype rlipidemia, hypertension, gastroesophageal reflux disease, and prior myocardial infarction. The patient is a lifelong nontobacco user. White count is 4.9, hemoglobin 13.5, hematocrit 39.5, platelet count 92,000. PTT 61.3. D-dimer 2.41. Sodium 132, potassium 4.8, chloride 105, CO2 18, anion gap 9, BUN and creatinine 52 and 2.05. Calcium 7.6, AST 156, pO2 102, LDH 2018. C-reactive protein 158. I was not able to look at the chest x-ray. There is apparently a partially occlusive opacity at the right lung base consistent with acute pneumonic process. CT angiogram was not performed. Patient was reevaluated today on 06/23/2020, patient is feeling better today compared to how he felt yesterday. Patient is on high flow cannula running at 15 L/m, his O2 saturation is in the mid to high 80s he is on 100% FiO2 basically. His chest x-ray does not seem to be impressive, he does have consoli dative opacity in the right lung base consistent with acute pneumonic process. Left lung is relatively clear. No significant pulmonary congestion. D-dimer is 2.56. Renal profile is not good enough for performing a CT angiogram of the chest, however I will recommend bilateral venous Doppler on this patient just to make sure we were not dealing with thromboembolic process. Again the patient tells me that his feeling better today compared to how he felt yesterday. Clinically improving. Patient was reevaluated today on 06/24/2020, patient remains on high flow oxygen. He is on 15 L high flow cannula, and his O2 saturations 92% at best. Patient continues to have shortness of breath, intermittent episodes of cough. He has no fever, his vital signs are relatively stable. During my evaluation, patient was constantly coughing. CBC is relatively normal electrolytes are normal BUN is 52 creatinine 1.45. LDH is elevated at 1586. Venous Doppler yesterday was negative. Chest x-ray on admission showed consolidation at the right lung base. I also suspect some consolidation at the left base/retrocardiac area. Progress note dated 06/25/2020. Currently, the patient was on BiPAP and on percent. Earlier today, he desaturated, and the nurses had a hard time getting his saturations back up. We did do a blood gas on the patient. PO2 was 63, pCO2 was 33, pH was 7.44. That was on 100% on the BiPAP. White count 14.8, hemoglobin hematocrit and platelet count all normal. Sodium 136, potassium 4.9, chlorides 107, CO2 20, anion gap 9, BUN 45, creatinine 1.28. Chest x-ray today showed diffuse bilateral patchy infiltrates which are stable. Yesterday, he was on high flow nasal O2 at 15 L/m. Progress note dated 06/26/2020. 70-year-old male, currently on BiPAP, at 16/6 and 80%. His saturations were good, so the FiO2 was dropped from 80% down to 60%. The patient appears to be d oing reasonably well, although he did become somewhat tachypnea today when he was being evaluated here. Saturations are 90% on the 60% FiO2. Temperature is 98.1, and blood pressure 173/104. White count 14.9, and hemoglobin, hematocrit, and platelet count are all normal. Sodium 135, potassium 5.2, chlorides 106, CO2 18, anion gap 11, BUN 38, creatinine 1.23. Chest x-ray from June 25, shows bilateral patchy infiltrates. The patient is seen today 06/27/2020 in follow-up on the regular medical floor. He is currently resting fairly comfortably in bed. He is maintaining O2 saturation in the 90s on BiPAP 16/6 and 60% FiO2. 0.9 normal saline at 50 MLS per hour. Chest x-ray continues to show patchy bilateral infiltrates compatible with superimposed interstitial pneumonia. White count 8.3. Hemoglobin 13.4. Sodium 139. Potassium 5.6. Creatinine 1.13. He is continued on dexamethasone, Xarelto, vitamin supplements. The patient is seen today 06/28/2020 follow-up on the selective care unit. He is currently sitting up in bed. Remains on BiPAP 16/6 and 100% FiO2 maintaining O2 saturation the high 80s low 90s. He is 0.9 normal saline at 50 MLS per hour. He is now on Lovenox, dexamethasone, vitamin supplements. PICC line placed today. The patient is seen today 06/29/2020 follow-up on the selective care unit. He remains on BiPAP 16/6 and 100% FiO2 to maintain O2 saturations in the low 90s. He is afebrile. Currently being nourished with TPN via PICC line. 0.9 normal saline at 50 ML's per hour. Blood cultures reveal no growth. Sodium 140. Potassium 5.1. Creatinine 1.18. Glucose 125. He remains on dexamethasone, Lovenox, vitamin supplements. The patient is seen today 06/30/2020 follow-up on the selective care unit. He is currently resting fairly comfortably in bed. Remains on BiPAP 16/6 at 100% FiO2. He is being nourished with TPN and lipids via PICC line. 0.9 normal saline at 50 MLS per hour. He states he is still quite fatigued but improved today compared to yesterday. Cultures reveal no growth. D-dimer 10.2. Sodium 140. Potassium 5.2. Creatinine 0.99. LDH 1591. C-reactive protein 53.8. He remains on therapeutic Lovenox, dexamethasone, vitamin supplements. The patient is seen today 07/01/2020 in follow-up on the selective care unit. He is resting comfortably in bed. Continued on BiPAP 16/6 and 100% FiO2 to maintain O2 saturations in the high 80s low 90s. Chest x-ray continues to show scattered bilateral lung infiltrates which are stable compared to previous. Sodium 142. Potassium 4.8. Creatinine 0.95. Yesterday's d-dimer 10.23. Remains on therapeutic Lovenox at 100 mg subcu every 12 hours, Decadron, vitamin supplements. On today's evaluation of 07/02/2020 on seeing the patient for a follow-up. The patient remains on a BiPAP at a pressure of 16/6 cm of water and FiO2 of 80%. The patient is also receiving TPN for nutritional support. Therapeutic dose of Lovenox. His d-dimer was quite elevated at 10.2, normal renal function, normal electrolytes, CRP was elevated at 53 with an LDH level of 1591. Most recent chest x-ray from 07/01/2030 showing peripherally located infiltrates bilaterally. The patient is able to generate tidal volume of around 370 on the BiPAP machine. His extremities around 28. He is very weak. He cannot tolerate being off the BiPAP as the patient immediately desaturates even was taken pills or sips of water. He remains on TPN for nutritional support. His symptoms of his blood work today, he has white cell count of 9.8 with a hemoglobin of 12, sodium is 139 and a creatinine of 0.9. His current pulse ox on the percent on above-mentioned BiPAP setting with an FiO2 of 80%.Inflammatory markers are still elevated. D-dimer is at 5 and the patient also has an LDH level of 1009 with a CRP of 143.The chest x-ray from yesterday was showing worsening in the bilateral lower lobe pulmonary infiltrates especially in the right lower lobe. 07/03/2020 the patient remains on BiPAP at a pressure of 16/6 with an FiO2 of 80% and this is essentially the same setting as yesterday. His current vitals show a pulse ox of 94% on above-mentioned ventilator setting. He is afebrile. Breathing is nonlabored. He is still on TPN for nutritional support. His chest x-ray from 07/01/2020 showed peripheral pulmonary infiltrates consistent with Coumadin related pneumonia. No repeat x-rays since then. The patient remains considerably weak. His blood work from today showing no major electrolyte abnormalities. His LDH level was dropping yesterday down to 1009. He is still on Decadron 6 mg IV every 24 hours. He is also on Lovenox 45 mg subcu every 12 hours. On the BiPAP machine, degenerative tidal volumes around 400. 06/03/2020 this morning the patient is off the BiPAP and the patient is currently on a high flow oxygen 60 L with an FiO2 of 86%. The patient is also using 100% nonrebreather facemask. His current pulse ox is around 91%. He has developed skin breaks and ulceration from his BiPAP mask and is currently off the BiPAP. He is resting comfortably in bed. He is still on Lovenox 45 mg subcu every 12 hours. There is on steroids and the patient is receiving De cadron 6 mg IV every 24 hours. The patient is also on TPN for nutritional support. LDH level is at 893 which is lower than the CRP level is down to 50. He is quite weak and debilitated. His white cell count of 6.8 with a hemoglobin of 12.3. No fever. No other new complaints otherwise for now. Most recent d- dimer was at 5 from 07/02/2020. 07/05/2020, the patient remains on BiPAP. The patient was on high flow oxygen yesterday and desaturated and he decompensated and he was switched to a BiPAP at a pressure of 16/6 with an FiO2 of 80%. This occurred when the patient on was trying to have some breakfast earlier this morning. He was on high flow oxygen. He dropped his oxygen saturations significantly and he was very slow in recovery. At that point, he was switched to a BiPAP. His current pulse ox is 90%. He is quite lethargic and somnolent. He is unable to eat and he has TPN for nutritional support. He continues to be on Decadron 6 mg IV every 24 hours. He is also on Lovenox 45 mg subcutaneously every 12 hours. On his blood work, he had a d-dimer of 6.49 which is slightly higher than the white cell count is at 8.6 with a hemoglobin of 12.8. TPN is current to being administered for nutritional support. No other significant events , otherwise his night was uneventful.. The PICC line is in the left upper extremity. The patient also has a Kwan catheter in place. Each in relating a tidal volume of 550 and his respiratory rate is currently in the mid 30s. He seems to be quite comfortable. He is however lethargic. 07/06/2020, the patient is on a BiPAP at a pressure of 16/6 with an FiO2 of 100%. Pulse ox is currently at around 88%. He was having some oxygen desaturations and the patient was brought up to 100% on her BiPAP FiO2. The patient's subsequent reading in a pulse ox in the order of 91%. Remains on TPN for nutritional support. Remains on Decadron 6 mg IV every 24 hours. Remains on Lovenox 45 mg subcu every 12 hours. Blood work shows a d-dimer of 5.64. No electrolyte abnormalities. Condition is essentially unchanged and probably the same as yesterday. Still on Levemir insulin 10 units along with a sliding scale coverage. Blood sugars are adequate for now. He does have a PICC line in left upper extremity. He has a Kwan catheter in place. At around 10:00 this morning, the patient was trialed on the percent nonrebreather with a high flow oxygen at 60 L with an FiO2 of 90%. He desaturated to the low 60s and he was placed accordingly back on BiPAP. 07/07/2020 the patient is a same BiPAP setting which is 60/6 with an FiO2 of 95%. Earlier this morning she was trialed on high flow oxygen with 60 L and FiO2 of 90% and he decompensated and he became profoundly hypoxic and he had to be placed back on the BiPAP. His current pulse ox in the low 90s. He remains on IV Decadron 6 and the rescue 24 hours. He remains on Lovenox 45 mg subcu every 12 hours. Chest x-ray from today is showing stable bilateral interstitial pulmonary infiltrates with some worsening consolidation of the left lower lobe. Meanwhile, the patient is still receiving TPN for nutritional support. He is unable to take oral intake because of his extreme BiPAP dependence. D-dimer is at 4.06 and the patient is on Lovenox 45 mg subcu every 12 hours. He has also LDH level of 962, CRP level is at 8.3, electrolytes are all within normal limits. Unfortunately, he is still doing poorly and is not showing any signs of recovery. He remains on Levemir insulin 10 units daily along with a sliding- scale coverage. He has a Kwan catheter in place. Respiratory rate is in the mid 30s. He is quite lethargic. 2020, the patient continues to be on a BiPAP at a pressure of 16/6 with an FiO2 of 95%. Awake and alert. Slightly tachypneic. Pulse ox is 89% on the above-mentioned BiPAP setting. Minute ventilation as 40 L as we were seeing the patient and his minute ventilation with a. Otherwise his aspirate has been in the high 20s low 30 range. Whenever he sleeps, his respiratory rate goes down. He wants to stay on the BiPAP and he doesn't want to transition to the high flow oxygen today. Repeat chest x-ray was done and the findings are essentially stable with diffuse bilateral pulmonary infiltrates. No evidence of any pneumothorax. No interval progression or worsening his chest x-ray findings. Meanwhile, his blood work shows no major abnormalities. Blood sugars are not elevated. The patient remains on TPN for nutrition support and the patient remains on Decadron IV every 24 hours on Lovenox 45 mg subcu every 12 hours. D- dimer level is at 4.06. Patient was reevaluated today on 07/09/2020, remains on high flow oxygen using airvo and non-rebreather mask. Patient is on 94% FiO2 and 60 L flow per minute. Patient is about the same, not getting any better not getting any worse. He is noted to be slightly tachypneic. Has BiPAP at bedside, but not using it at present. Basic metabolic profile today is normal., Last LDH was trending down to 962 and C-reactive protein 8.3 Patient was reevaluated today on 07/10/2020, remains on high flow oxygen using Airvo and nonrebreather mask. O2 saturation remains marginal in the low 90s and high 80s patient denies being short of breath. He has intermittent cough. His d-dimer is 5.4 to today. Not significantly changed over the last 1 week. Basic metabolic profile is normal renal profile is normal. His last C-reactive protein was 8.3 and his LDH was 962 from 2 days ago. Chest x-ray from 07/08 continues to show persistent bilateral multifocal and comfortable in particular opacities consistent with COVID-19 infection. Patient was reevaluated today on 07/11/2020, remains on high flow oxygen, patient is on nonrebreather plus airvo 90% FiO2 and 60 L flow, O2 saturation remains marginal in the mid to high 80s. Patient in mild distress, but overall he thinks he is getting a bit better. Tried today to change position on the patient and see if his oxygenation improves, did not seem to make much of a difference, and the patient could not lay prone. He had even some difficulty laying on the right side. Remained generally weak, not making significant progress since admission. His CBC looks relatively normal his d-dimer is 5 renal profile is normal. Electrolytes are normal. Last chest x-ray from 2 days ago was consistent with COVID-19 pneumonia. On 07/12/2020 patient seen in follow-up on medical surgical floor, this morning his dyspnea and hypoxia have worsened, he is displaying decreasing oxygen saturations and increasing work of breathing. Patient has been on BiPAP support with pressures of 12 and 6 and 200%, and despite that patient is unable to maintain O2 saturations above 80-82%, he is quite tachypneic. Patient remains on multivitamins, steroids, and Lovenox 45 mg twice daily. He is status post Toci on 07/06/2020. He is receiving nutritional support in the form of TPN, his been unable to take in much by mouth related to his dyspnea, hypoxia, and dependence on high flow oxygen and BiPAP. Stat chest x-ray was obtained showing increasing confluence of airspace disease, and patient's steroids have been switched to Solu-Medrol 60 mg every 6 hours. Today's labs have been reviewed On 07/13/2020 patient seen in follow-up in the intensive care unit, he was trace to the ICU yesterday in view of worsening hypoxia and dyspnea, he is on BiPAP support pressures of 16/8 and FiO2 of 100%, and his pulse ox is 92%, he seems to be comfortable on those settings, breathing comfortably, appears to be in no respiratory distress. He does not tolerate being off the BiPAP and is very much dependent on BiPAP at this time, unable to take any oral meds or oral nutrition, PICC line was inserted in patient continues on TPN for nutritional support at a rate of 85 ML per hour, and lipids on the Thursday schedule, followed by registered dietitian. No other vasoactive drips, no other maintenance drips, hemodynamically he remains stable, he is in sinus mechanism, today's chest x-ray has been reviewed showing improvement in aeration, and patient is currently on IV steroids with Solu-Medrol 60 mg every 6 hours, and he remains on Lovenox 45 mg twice daily, all of his oral medications have been discontinued, and his Lopressor has been switched over to Lopressor IV 20 mg every 6 hours. No complaints of chest discomfort, no cough, lung sounds reveal diffuse crackles. He appears be fairly comfortable. Today's labs have been reviewed showing white blood cell count of 9.0, hemoglobin of 13.9, his d-dimer is improving and is down to 1.84, sodium is 135, the rest of the electrolytes were within normal limits, and BUN is up slightly, at 42, creatinine remains in the normal range of 0.71. LDH is 1492 uptrended a bit from previous value, and CRP is 0.8 On 07/14/2020 patient is seen in follow-up in intensive care unit, she remained BiPAP dependent at this time, BiPAP pressures of 16/8, and FiO2 100%, however he tolerates BiPAP support quite well, no agitation, no attempts to remove the mass, he is quite compliant, pulse ox on those settings is ranging from 93-96%, hemodynamically he is stable, has not had any vasopressor support, he is in sinus mechanism with a rate of 67, he is on 0.9 normal saline at a rate of 29 per hour, TPN is infusing at 85 MLS per hour, patient has not been able to come off the BiPAP support long enough to sustain his oral nutrition. He feels thirsty, and his been coming off the BiPAP mask only for oral care and sips of water. He is awake, he is alert oriented 3, denies acute distress, today's chest x-ray shows mixed interstitial and airspace disease within the lungs similar to the prior exam, no major change. Today's labs have been reviewed, doing a d-dimer slightly trending down, down to 1.25, LDH is 1305, down from yesterday, his CRP is normal at 0.7. Blood cultures have shown no growth. He remains on prophylactic dose Lovenox 40 mg daily, remains on Solu-Medrol 60 mg every 6 hours, he is on morphine as needed 2-4 mg every 4 hours for breathlessness and anxiety, and that has been helping him cope with the BiPAP support. No chest discomfort, no nausea vomiting or diarrhea no abdominal pain. On 07/16/2020 patient seen in follow-up in the intensive care unit, patient was able to lift the BiPAP support, and he is currently on Airvo at 60 L and FiO2 of 90% in addition to 100% nonrebreather mask, tolerating it well so far, he is awake and alert, oriented 3, he is able to taken some oral nutrition, no increased dyspnea, he is maintaining O2 saturations at around 90% on the above mentioned oxygen set up, he is afebrile, he is hemodynamically stable, not in any vasopressor support, he is on 0.9 normal saline at a rate of 20 ML per hour, his TPN has been discontinued. Today's chest x-ray shows bilateral interstitial and airspace disease similar in appearance to previous chest x-ray from yesterday. Today's blood work has been reviewed, showing orbital, 10.2, hemoglobin is 12.9, serum sodium is 135, the rest of electrolytes were unremarkable, BUN is 48, creatinine 0.74, his AST is 96, ALT is 182, worsened since yesterday, total bilirubin is 1.4, his LDH is CRP were not repeated today, but or improving on yesterday's labs. All blood cultures have been negative thus far. He remains on daily dose of Lovenox 40 mg daily, IV steroids 60 mg every 6 hours, and sliding scale insulin in addition to Levemir. Vital signs have been stable, no fever or chills, no nausea vomiting or diarrhea. On 07/17/2020 patient seen in follow-up in intensive care unit, she remains on Airvo at 60 L and FiO2 of 90% in addition to 100% nonrebreather mask and he is maintaining O2 saturations between 86-92%, he is breathing comfortably, no increased dyspnea or cough, vital signs have been stable, he has been afebrile. He is on 0.9 normal seen at 20 ML per hour, no other drips. Tolerating oral intake, TPN has been discontinued, today's labs have been reviewed showing white blood cell count 8.8, hemoglobin of 12.5, d-dimer is 1.48, sodium is 134, there is the rest of the electrolytes are unremarkable, BUN is 49 creatinine 0.83, LDH is 1279, CK is 39, CRP 0.7, laboratory markers are relatively stable. His cultures have been reviewed, all blood cultures have remained negative. He remains on Lovenox 40 mg daily, and IV Solu-Medrol at 60 mg every 6 hours On 07/18/2020 patient seen in follow-up in the intensive care unit, he remains on Airvo at 60 L and FiO2 of 90% in addition to 100% nonrebreather mask is pulse ox is 93-94%, his been off BiPAP support for last 48 hours, tolerating it well so far, tolerating oral intake, TPN has been discontinued, hemodynamically stable, he is afebrile. He did desaturate become short of breath with any exertion, still has a cough. No new chest x-ray today, yesterday chest x-ray showed bilateral interstitial and alveolar infiltrates. Continues on IV Solu- Medrol 60 mg every 6 hours, and prophylactic dose Lovenox. No acute events overnight. Today's labs have been reviewed, white blood cell count is 7.5, he moglobin is 13.4, yesterday's d-dimer was 1.48, serum sodium is 134, potassium is 5.2, BUN is 50 creatinine 0.86, LDH is CRP were improving on yesterday's labs. On 07/19/2020 patient seen in follow-up in the intensive care unit, he remains on Airvo at 60 L and FiO2 of 90%, his pulse ox is 88-93%, not using additional nonrebreather mask. He is resting comfortably in bed, today's chest x-ray shows bilateral airspace disease, and prominent interstitium, no evident pneumothorax or pleural effusion. Today's labs have been reviewed, white blood cell count is 8.0, hemoglobin is 14.2, platelet count is 87, today's d-dimer is 1.75, sodium is 135, potassium is 5.3, the rest of electrolytes were within normal limits, BUN is 53 creatinine 0.86, his LDH is 1438, CRP 0.6. Blood cultures are all negative. He remains on IV Solu-Medrol 60 mg every 6 hours, he is on prophylactic dose Lovenox. 0.9 normal seen at a rate of 20 ML per hour, no other drips, no vasopressor support. He is tolerating oral intake, no nausea vomiting or diarrhea. On 07/20/2000 patient seen in follow-up in intensive care unit, he is on Airvo at 60 L and FiO2 of 90%, his O2 saturation right now is around 90%, he easily desaturates with any activity, at times has to use the nonrebreather mask periods increased dyspnea. No IV fluids, today's chest x-ray shows bilateral airspace disease, prominence of interstitium again noted. Today's labs have been noted, his white blood count, 7.9, hemoglobin is 13.4, lymphocyte count is 0.3, his last d-dimer yesterday was 1.75, sodium is 135, the rest of his electrolytes were unremarkable, his BUN is 49, creatinine is 0.81. Patient continues on IV Solu-Medrol 60 mg every 6 hours, he is on Lovenox 40 mg daily, he is on 0.9 normal saline at a rate of 20 ML per hour, no other drips, he is tolerating oral intake, no nausea vomiting or diarrhea. On 07/21/2020 patient seen in follow-up in intensive care unit, he is awake and alert, oriented 3, he currently remains on Airvo at 60 L and FiO2 of 90%, his pulse ox is around 92%, no IVs infusing at this time, his breathing has been stable, he is dyspneic with conversation or any exertion, overall he has become significantly weak, he has not been up out of bed, but dyspnea has not worsened, patient has not required BiPAP support, he is tolerating oral intake, no nausea vomiting or diarrhea, actually complaining of constipation, he has required stool softeners, and was able to have a bowel movement last night. Today's chest x-ray has been reviewed showing interstitial and airspace disease which is similar in appearance compared to previous chest x-ray. Clinically has remained stable. Continues on Solu-Medrol 60 mg every 6 hours, he is on prophylactic dose Lovenox, some of his home oral meds have been restarted as the patient is tolerating oral intake. Objective - Vital Signs Vital signs: Vital Signs Temp 98.5 F 07/21/20 04:00 Pulse 50 L 07/21/20 07:00 Resp 20 07/21/20 07:00 BP 118/66 07/21/20 07:00 Pulse Ox 90 L 07/21/20 07:42 Intake & Output 07/20/20 07/21/20 07/21/20 18:59 06:59 18:59 Intake Total 500 300 Output Total 690 765 75 Balance -690 -712 225 Intake: Oral 500 300 Output: Urine 690 765 75 Other: Voiding Method Indwelling Catheter Indwelling Catheter # Bowel Movements 1 - Exam GENERAL EXAM: Alert, very pleasant, 70-year-old white male, on Airvo at 60 L and FiO2 of 90%, maintaining O2 saturations around 92% HEAD: Normocephalic/atraumatic. EYES: Normal reaction of pupils, equal size. Conjunctiva pink, sclera white. NOSE: Clear with pink turbinates. THROAT: No erythema or exudates. NECK: No masses, no JVD, no thyroid enlargement, no adenopathy. CHEST: No chest wall deformity. Symmetrical expansion. LUNGS: Equal air entry with diminished breath sounds bilaterally, with bilateral base crackles CVS: Regular rate and rhythm, normal S1 and S2, no gallops, no murmurs, no rubs ABDOMEN: Soft, nontender. No hepatosplenomegaly, normal bowel sounds, no guarding or rigidity. EXTREMITIES: No clubbing, no edema, no cyanosis, 2+ pulses and upper and lower extremities. MUSCULOSKELETAL: Muscle strength and tone normal. SPINE: No scoliosis or deformity SKIN: No rashes CENTRAL NERVOUS SYSTEM: Alert and oriented -3. No focal deficits, tone is normal in all 4 extremities. PSYCHIATRIC: Alert and oriented -3. Appropriate affect. Intact judgment and insight. - Labs CBC & Chem 7: 07/20/20 04:13 07/20/20 04:13 Labs: Abnormal Lab Results - Last 24 Hours (Table) 07/20/20 07/20/20 07/20/20 Range/Units 11:21 16:49 20:52 POC Glucose (mg/dL) 248 H 130 H 242 H (75-99) mg/dL 07/21/20 Range/Units 06:44 POC Glucose (mg/dL) 134 H (75-99) mg/dL Assessment and Plan Plan: Assessment: #1. Acute hypoxemic respiratory failure secondary to COVID-19 pneumonia. Outside the window for Remdesivir, that is post Toci 800 mg on 07/06/2020 for worsening hypoxic respiratory failure, patient remains very much BiPAP dependent and has not tolerated transitioning to high flow oxygen very well, he required transfer to the intensive care unit today on 07/12/2020 and current BiPAP se ttings of 14/8 and FiO2 of 100%. Today on 07/19/2020 patient off BiPAP support and is currently on irritable at 60 L and FiO2 of 90% #2. Increased inflammatory markers related to the above, improving #3. Increased d-dimer, lower extremity Dopplers showed no evidence of DVT, patient remains on Lovenox 45 mg twice daily and a d-dimer is improving #4. History of atrial fibrillation, paroxysmal and patient is not on any chronic anticoagulation #5. Coronary artery disease with previous stent placement #6. GERD/reflux #7. Hypertension #8. Hyperlipidemia #9. History of rheumatic fever #10. History of gout #11. Acute kidney injury recovered #12. Decreased oral intake and inability to sustain oral intake related to BiPAP device, and dependence on noninvasive ventilatory support, patient is currently on TPN for nutritional support. TPN has been discontinued, patient is tolerating oral diet today, he is off BiPAP support on 07/16/2020 Plan: Continue Airvo, wean FiO2 to keep O2 sats ration is at or above 90% Continues to be dyspneic, but fairly stable, has not required BiPAP support He is significantly generally weak, will need physical therapy evaluation, up in the chair today Today's chest x-ray has been reviewed showing stable interstitial and airspace disease bilaterally We'll continue current dose Lovenox and current dose IV steroids Blood sugar monitoring Encourage oral intake, If remains stable may consider discharging from the intensive care unit to a [facility] medical floor next 24 hours Overall prognosis is guarded I performed a history & physical examination of the patient and discussed their management with my nurse practitioner, Constance El. I reviewed the nurse practitioner's note and agree with the documented findings and plan of care. Lung sounds are positive for bibasilar crackles. The findings and the impression was discussed with the patient. I attest to the documentation by the nurse practitioner. Time with Patient: Greater than 30
[2020-07-21 15:18] LABS: HCT 39.5 % (39.0-53.0); HGB 13.7 gm/dL (13.0-17.5); MCH 31.8 pg (25.0-35.0); MCHC 34.6 g/dL (31.0-37.0); MCV 91.9 fL (80.0-100.0); Mean Platelet Volume 9.4; RDW 14.2 % (11.5-15.5); WBC 9.3 k/uL (3.8-10.6)
[2020-07-21] MEDS: SODIUM CHLORIDE 0.9% 1,000 ML IV SCH (15:19)
[2020-07-21 15:22] LABS: Platelet Count 79 k/uL (150-450)
[2020-07-21 15:28] LABS: African American GFR (CKD) >90 (>60 ml/min/1.73 sqM); Anion Gap 2 mmol/L; Blood Urea Nitrogen 46 mg/dL (9-20); Calcium 8.4 mg/dL (8.4-10.2); Carbon Dioxide 28 mmol/L (22-30); Chloride 102 mmol/L (98-107); Glucose 229 mg/dL (74-99); Non-African American GFR(CKD) >90 (>60 ml/min/1.73 sqM); Potassium 4.7 mmol/L (3.5-5.1); Sodium 132 mmol/L (137-145)
[2020-07-21 16:44] LABS: Glucose,Whole Blood 185 mg/dL (75-99)
--- NOTE | 2020-07-21 18:08 | P.PN ---
Subjective Progress Note Date: 07/21/20 Principal diagnosis: Acute hypoxic respiratory failure secondary to acute covid 19 pneumonitis. 70-year-old gentleman that was seen in the emergency room on June 21. He was sent into the emergency room after being seen by his primary care doctor because of increasing shortness of breath, and concerns that the patient might have COVID 19. In addition to shortness of breath, the patient states he's been having lots of chest congestion, and is been coughing. When he coughs, it is painful in his chest. He has been sick for at least 2 weeks. In addition, he has muscle aches and joint aches, weakness and fatigue, and fever and chills. Currently, he is on a nonrebreather mask. Saturations are 92%. His primary care physician Dr. Vijay Encarnacion. He was not receiving any IV fluids. His primary medical problems include atrial fibrillation, coronary artery disease, hyperl ipidemia, hypertension, gastroesophageal reflux disease, and prior myocardial infarction. The patient is a lifelong nontobacco user. White count is 4.9, hemoglobin 13.5, hematocrit 39.5, platelet count 92,000. PTT 61.3. D-dimer 2.41. Sodium 132, potassium 4.8, chloride 105, CO2 18, anion gap 9, BUN and creatinine 52 and 2.05. Calcium 7.6, AST 156, pO2 102, LDH 2018. C-reactive protein 158. I was not able to look at the chest x-ray. There is apparently a partially occlusive opacity at the right lung base consistent with acute pneumonic process. CT angiogram was not performed. 06/23/2020 patient is seen and evaluated in the room at bedside reports feeling better today compared to how he felt yesterday. Patient is on high flow cannula running at 15 L/m, his O2 saturation is in the mid to high 80s he is on 100% FiO2 basically. His chest x-ray does not seem to be impressive, he does have consolidative opacity in the right lung base consistent with acute pneumonic process. Left lung is relatively clear. No significant pulmonary congestion. D-dimer is 2.56. Unable to perform CT angiogram of the chest due to compromised renal function, however I will recommend bilateral venous Doppler on this patient just to make sure we were not dealing with thromboembolic process. Again the patient tells me that his feeling better today compared to how he felt yesterday. Clinically improving. 06/24/2020 Patient is seen and evaluated in room at bedside; remains on O2 per H HF NC at 15 L along with nonrebreather mask with O2 saturation around 88%; cardiology is consulted to evaluate patient for his request Cardiology evaluated patient and have recommended to resume home anticoagulation therapy in form of Xarelto at 15 mg daily and discontinue Lovenox; lisinopril is recommended to be held due to mild AK I and hyperkalemia; we will continue to monitor renal function and electrolytes closely; continue with supplemental oxyg en with plans to wean off as tolerated; patient remains on subcu Lovenox and Decadron along with vitamins 07/07/2020 patient is seen and evaluated at bedside ; remains on BiPAP setting which is 60/6 with an FiO2 of 95%. Patient failed a trial of transition to high flow o xygen with 60 L and FiO2 of 90% and he decompensated and he became profoundly hypoxic and he had to be placed back on the BiPAP. His current pulse ox in the low 90s. He remains on IV Decadron 6 and the rescue 24 hours. He remains on Lovenox 45 mg subcu every 12 hours. Chest x-ray from today is showing stable bilateral interstitial pulmonary infiltrates with some worsening consolidation of the left lower lobe. Meanwhile, the patient is still receiving TPN for nutritional support. He is unable to take oral intake because of his extreme BiPAP dependence. D-dimer is at 4.06 and the patient is on Lovenox 45 mg subcu every 12 hours. He has also LDH level of 962, CRP level is at 8.3, electrolytes are all within normal limits. Unfortunately, he is still doing poorly and is not showing any signs of recovery. He remains on Levemir insulin 10 units daily along with a sliding-scale coverage. He has a Kwan catheter in place. Respiratory rate is in the mid 30s. He is quite lethargic. 07/08/2020 Patient is seen in ICU; remains on a BiPAP; with an FiO2 of 95%. Awake and alert. Slightly tachypneic. Pulse ox is 89% on the above-mentioned BiPAP setting. He wants to stay on the BiPAP and he doesn't want to transition to the high flow oxygen today. Chest x-ray was done and the findings are essentially stable with diffuse bilateral pulmonary infiltrates. No evidence of any pneumothorax. No interval progression or worsening his chest x-ray findings. Meanwhile, his blood work shows no major abnormalities. Blood sugars are not elevated. The patient remains on TPN for nutrition support and the patient remains on Decadron IV every 24 hours on Lovenox 45 mg subcu every 12 hours. D-dimer level is at 4.06. 07/21/2020 patient seen and evaluated in follow-up in intensive care unit, he is awake and alert, oriented 3, he currently remains on Airvo at 60 L and FiO2 of 90%, his pulse ox is around 92%, no IVs infusing at this time, his breathing has been stable, he is dyspneic with conversation or any exertion, overall he has become significantly weak, he has not been up out of bed, but dyspnea has not worsened, patient has not required BiPAP support, he is tolerating oral intake, no nausea vomiting or diarrhea, actually complaining of constipation, he has required stool softeners, and was able to have a bowel movement last night. Today's chest x-ray has been reviewed showing interstitial and airspace disease which is similar in appearance compared to previous chest x-ray. Clinically has remained stable. Continues on Solu-Medrol 60 mg every 6 hours, he is on prophylactic dose Lovenox, some of his home oral meds have been restarted as the patient is tolerating oral intake. Objective - Vital Signs Vital signs: Vital Signs Temp 98.5 F 07/21/20 04:00 Pulse 50 L 07/21/20 07:00 Resp 20 07/21/20 07:00 BP 118/66 07/21/20 07:00 Pulse Ox 90 L 07/21/20 07:42 Intake & Output 07/20/20 07/21/20 07/21/20 18:59 06:59 18:59 Intake Total 500 300 Output Total 690 765 75 Balance -690 -265 225 Intake: Oral 500 300 Output: Urine 690 765 75 Other: Voiding Method Indwelling Catheter Indwelling Catheter # Bowel Movements 1 - Exam Physical Exam: Revealed a 70-year-old white male in no distress. Head: Atraumatic, normocephalic. HEENT:[Neck is supple.] [No neck masses.] [No thyromegaly.] [No JVD.] Chest: [Bibasilar crackles noted, right more so than left, no rhonchi and no wheezes. Cardiac Exam: [Normal S1 and S2, no S3 gallop, no murmur.] Abdomen: [Soft, nontender, no megaly, no rebound, no guarding, normal bowel sounds.] Extremities: [No clubbing, no edema, no cyanosis.] Neurological Exam: [No focal neurologic deficit.] Alert oriented 3. Psychiatric: Normal mood affect and normal mental status examination - Labs CBC & Chem 7: 07/21/20 15:07 07/21/20 15:07 Labs: Abnormal Lab Results - Last 24 Hours (Table) 07/20/20 07/20/20 07/20/20 Range/Units 11:21 16:49 20:52 POC Glucose (mg/dL) 248 H 130 H 242 H (75-99) mg/dL 07/21/20 Range/Units 06:44 POC Glucose (mg/dL) 134 H (75-99) mg/dL Assessment and Plan Assessment: Sepsis secondary to Acute Covid -19 pneumonia Acute hypoxic respiratory failure secondary to the above Acute renal failure secondary to the above Coronary artery disease with history of DC,stent placement History of Gout Hypertension Chronic paroxysmal atrial fibrillation Chronic systolic CHF, EF 35-40% Recommendation: Out of the window for REM. Continue the Covid 19 cocktail. Continue Lovenox and Decadron. Titrate FiO2 accordingly. We'll recommend venous Doppler of the lower extremities. Continue to monitor renal profile. We will continue to follow.
[2020-07-21 20:57] LABS: Glucose,Whole Blood 185 mg/dL (75-99)
[2020-07-21] MEDS: OLANZapine 7.5 MG TAB PO SCH (21:32)
[2020-07-21] MEDS: MORPHINE SULFATE 4 MG/ML SYRINGE IVP PRN (21:48)
[2020-07-22] MEDS: methylPREDNISolone SOD SUCCI 125 MG/2 ML VIAL IV SCH ×2 (01:00→06:52)
[2020-07-22] MEDS: MORPHINE SULFATE 2 MG/ML SYRINGE IVP PRN ×2 (01:04→20:31)
[2020-07-22 06:50] LABS: Glucose,Whole Blood 99 mg/dL (75-99)
[2020-07-22] MEDS: INSULIN DETEMIR (LEVEMIR) 100 UNIT/ML SYR SQ SCH (06:52)
[2020-07-22] MEDS: INSULIN ASPART (NovoLOG) 100 UNIT/ML VIAL SQ SCH ×4 (06:53→20:50)
[2020-07-22] MEDS: ALBUTEROL HFA INHALER INHALATION PRN ×3 (07:37→16:51)
[2020-07-22] MEDS: allopurinoL 100 MG TAB PO SCH (07:47)
[2020-07-22] MEDS: ENOXAPARIN 40 MG/0.4 ML SYRINGE SQ SCH (07:47)
[2020-07-22] MEDS: METOPROLOL TARTRATE 25 MG TAB PO SCH ×2 (07:47→20:31)
[2020-07-22] MEDS: DOCUSATE 100 MG CAP PO SCH ×2 (07:47→20:31)
[2020-07-22] MEDS: FAMOTIDINE 20 MG TAB PO SCH ×2 (07:47→20:31)
[2020-07-22] MEDS: SENNOSIDES-DOCUSATE SODIUM 1 EACH TAB PO SCH ×2 (07:47→20:31)
[2020-07-22] MEDS ORDERED: NA PHOS,M-B/NA PHOS,DI-BA 133 ML ENEMA RECTAL ONE (09:00)
[2020-07-22 09:11] LABS: Basophils % (A) 0 %; Eosinophils % (A) 0 %; HCT 44.6 % (39.0-53.0); Lymphocytes # (A) 0.2 k/uL (1.0-4.8); Lymphocytes % (A) 2 %; MCH 29.3 pg (25.0-35.0); MCHC 31.4 g/dL (31.0-37.0); MCV 93.3 fL (80.0-100.0); Mean Platelet Volume 9.6; Monocytes # (A) 0.4 k/uL (0-1.0); Monocytes % (A) 5 %; Neutrophils # (A) 7.4 k/uL (1.3-7.7); Neutrophils % (A) 91 %; RBC 4.78 m/uL (4.30-5.90); RDW 14.6 % (11.5-15.5); WBC 8.1 k/uL (3.8-10.6)
[2020-07-22 09:14] LABS: Platelet Count 75 k/uL (150-450)
[2020-07-22 09:26] LABS: African American GFR (CKD) >90 (>60 ml/min/1.73 sqM); Anion Gap 5 mmol/L; Blood Urea Nitrogen 42 mg/dL (9-20); C Reactive Protein <0.5 mg/dL (<1.0); Calcium 8.5 mg/dL (8.4-10.2); Carbon Dioxide 30 mmol/L (22-30); Chloride 98 mmol/L (98-107); Glucose 138 mg/dL (74-99); LDH 1324 U/L (313-618); Non-African American GFR(CKD) >90 (>60 ml/min/1.73 sqM); Sodium 133 mmol/L (137-145)
--- NOTE | 2020-07-22 10:28 | P.PN ---
Subjective Progress Note Date: 07/22/20 Principal diagnosis: Acute hypoxic respiratory failure secondary to COVID-19 pneumonia This is a 70-year-old gentleman that was seen in the emergency room on June 21. He was sent into the emergency room after being seen by his primary care doctor because of increasing shortness of breath, and concerns that the patient might have COVID 19. In addition to shortness of breath, the patient states he's been having lots of chest congestion, and is been coughing. When he coughs, it is painful in his chest. He has been sick for at least 2 weeks. In addition, he has muscle aches and joint aches, weakness and fatigue, and fever and chills. Currently, he is on a nonrebreather mask. Saturations are 92%. His primary care physician Dr. Vijay Encarnacion. He was not receiving any IV fluids. His primary medical problems include atrial fibrillation, coronary artery disease, hype rlipidemia, hypertension, gastroesophageal reflux disease, and prior myocardial infarction. The patient is a lifelong nontobacco user. White count is 4.9, hemoglobin 13.5, hematocrit 39.5, platelet count 92,000. PTT 61.3. D-dimer 2.41. Sodium 132, potassium 4.8, chloride 105, CO2 18, anion gap 9, BUN and creatinine 52 and 2.05. Calcium 7.6, AST 156, pO2 102, LDH 2018. C-reactive protein 158. I was not able to look at the chest x-ray. There is apparently a partially occlusive opacity at the right lung base consistent with acute pneumonic process. CT angiogram was not performed. Patient was reevaluated today on 06/23/2020, patient is feeling better today compared to how he felt yesterday. Patient is on high flow cannula running at 15 L/m, his O2 saturation is in the mid to high 80s he is on 100% FiO2 basically. His chest x-ray does not seem to be impressive, he does have consoli dative opacity in the right lung base consistent with acute pneumonic process. Left lung is relatively clear. No significant pulmonary congestion. D-dimer is 2.56. Renal profile is not good enough for performing a CT angiogram of the chest, however I will recommend bilateral venous Doppler on this patient just to make sure we were not dealing with thromboembolic process. Again the patient tells me that his feeling better today compared to how he felt yesterday. Clinically improving. Patient was reevaluated today on 06/24/2020, patient remains on high flow oxygen. He is on 15 L high flow cannula, and his O2 saturations 92% at best. Patient continues to have shortness of breath, intermittent episodes of cough. He has no fever, his vital signs are relatively stable. During my evaluation, patient was constantly coughing. CBC is relatively normal electrolytes are normal BUN is 52 creatinine 1.45. LDH is elevated at 1586. Venous Doppler yesterday was negative. Chest x-ray on admission showed consolidation at the right lung base. I also suspect some consolidation at the left base/retrocardiac area. Progress note dated 06/25/2020. Currently, the patient was on BiPAP and on percent. Earlier today, he desaturated, and the nurses had a hard time getting his saturations back up. We did do a blood gas on the patient. PO2 was 63, pCO2 was 33, pH was 7.44. That was on 100% on the BiPAP. White count 14.8, hemoglobin hematocrit and platelet count all normal. Sodium 136, potassium 4.9, chlorides 107, CO2 20, anion gap 9, BUN 45, creatinine 1.28. Chest x-ray today showed diffuse bilateral patchy infiltrates which are stable. Yesterday, he was on high flow nasal O2 at 15 L/m. Progress note dated 06/26/2020. 70-year-old male, currently on BiPAP, at 16/6 and 80%. His saturations were good, so the FiO2 was dropped from 80% down to 60%. The patient appears to be d oing reasonably well, although he did become somewhat tachypnea today when he was being evaluated here. Saturations are 90% on the 60% FiO2. Temperature is 98.1, and blood pressure 173/104. White count 14.9, and hemoglobin, hematocrit, and platelet count are all normal. Sodium 135, potassium 5.2, chlorides 106, CO2 18, anion gap 11, BUN 38, creatinine 1.23. Chest x-ray from June 25, shows bilateral patchy infiltrates. The patient is seen today 06/27/2020 in follow-up on the regular medical floor. He is currently resting fairly comfortably in bed. He is maintaining O2 saturation in the 90s on BiPAP 16/6 and 60% FiO2. 0.9 normal saline at 50 MLS per hour. Chest x-ray continues to show patchy bilateral infiltrates compatible with superimposed interstitial pneumonia. White count 8.3. Hemoglobin 13.4. Sodium 139. Potassium 5.6. Creatinine 1.13. He is continued on dexamethasone, Xarelto, vitamin supplements. The patient is seen today 06/28/2020 follow-up on the selective care unit. He is currently sitting up in bed. Remains on BiPAP 16/6 and 100% FiO2 maintaining O2 saturation the high 80s low 90s. He is 0.9 normal saline at 50 MLS per hour. He is now on Lovenox, dexamethasone, vitamin supplements. PICC line placed today. The patient is seen today 06/29/2020 follow-up on the selective care unit. He remains on BiPAP 16/6 and 100% FiO2 to maintain O2 saturations in the low 90s. He is afebrile. Currently being nourished with TPN via PICC line. 0.9 normal saline at 50 ML's per hour. Blood cultures reveal no growth. Sodium 140. Potassium 5.1. Creatinine 1.18. Glucose 125. He remains on dexamethasone, Lovenox, vitamin supplements. The patient is seen today 06/30/2020 follow-up on the selective care unit. He is currently resting fairly comfortably in bed. Remains on BiPAP 16/6 at 100% FiO2. He is being nourished with TPN and lipids via PICC line. 0.9 normal saline at 50 MLS per hour. He states he is still quite fatigued but improved today compared to yesterday. Cultures reveal no growth. D-dimer 10.2. Sodium 140. Potassium 5.2. Creatinine 0.99. LDH 1591. C-reactive protein 53.8. He remains on therapeutic Lovenox, dexamethasone, vitamin supplements. The patient is seen today 07/01/2020 in follow-up on the selective care unit. He is resting comfortably in bed. Continued on BiPAP 16/6 and 100% FiO2 to maintain O2 saturations in the high 80s low 90s. Chest x-ray continues to show scattered bilateral lung infiltrates which are stable compared to previous. Sodium 142. Potassium 4.8. Creatinine 0.95. Yesterday's d-dimer 10.23. Remains on therapeutic Lovenox at 100 mg subcu every 12 hours, Decadron, vitamin supplements. On today's evaluation of 07/02/2020 on seeing the patient for a follow-up. The patient remains on a BiPAP at a pressure of 16/6 cm of water and FiO2 of 80%. The patient is also receiving TPN for nutritional support. Therapeutic dose of Lovenox. His d-dimer was quite elevated at 10.2, normal renal function, normal electrolytes, CRP was elevated at 53 with an LDH level of 1591. Most recent chest x-ray from 07/01/2030 showing peripherally located infiltrates bilaterally. The patient is able to generate tidal volume of around 370 on the BiPAP machine. His extremities around 28. He is very weak. He cannot tolerate being off the BiPAP as the patient immediately desaturates even was taken pills or sips of water. He remains on TPN for nutritional support. His symptoms of his blood work today, he has white cell count of 9.8 with a hemoglobin of 12, sodium is 139 and a creatinine of 0.9. His current pulse ox on the percent on above-mentioned BiPAP setting with an FiO2 of 80%.Inflammatory markers are still elevated. D-dimer is at 5 and the patient also has an LDH level of 1009 with a CRP of 143.The chest x-ray from yesterday was showing worsening in the bilateral lower lobe pulmonary infiltrates especially in the right lower lobe. 07/03/2020 the patient remains on BiPAP at a pressure of 16/6 with an FiO2 of 80% and this is essentially the same setting as yesterday. His current vitals show a pulse ox of 94% on above-mentioned ventilator setting. He is afebrile. Breathing is nonlabored. He is still on TPN for nutritional support. His chest x-ray from 07/01/2020 showed peripheral pulmonary infiltrates consistent with Coumadin related pneumonia. No repeat x-rays since then. The patient remains considerably weak. His blood work from today showing no major electrolyte abnormalities. His LDH level was dropping yesterday down to 1009. He is still on Decadron 6 mg IV every 24 hours. He is also on Lovenox 45 mg subcu every 12 hours. On the BiPAP machine, degenerative tidal volumes around 400. 06/03/2020 this morning the patient is off the BiPAP and the patient is currently on a high flow oxygen 60 L with an FiO2 of 86%. The patient is also using 100% nonrebreather facemask. His current pulse ox is around 91%. He has developed skin breaks and ulceration from his BiPAP mask and is currently off the BiPAP. He is resting comfortably in bed. He is still on Lovenox 45 mg subcu every 12 hours. There is on steroids and the patient is receiving De cadron 6 mg IV every 24 hours. The patient is also on TPN for nutritional support. LDH level is at 893 which is lower than the CRP level is down to 50. He is quite weak and debilitated. His white cell count of 6.8 with a hemoglobin of 12.3. No fever. No other new complaints otherwise for now. Most recent d- dimer was at 5 from 07/02/2020. 07/05/2020, the patient remains on BiPAP. The patient was on high flow oxygen yesterday and desaturated and he decompensated and he was switched to a BiPAP at a pressure of 16/6 with an FiO2 of 80%. This occurred when the patient on was trying to have some breakfast earlier this morning. He was on high flow oxygen. He dropped his oxygen saturations significantly and he was very slow in recovery. At that point, he was switched to a BiPAP. His current pulse ox is 90%. He is quite lethargic and somnolent. He is unable to eat and he has TPN for nutritional support. He continues to be on Decadron 6 mg IV every 24 hours. He is also on Lovenox 45 mg subcutaneously every 12 hours. On his blood work, he had a d-dimer of 6.49 which is slightly higher than the white cell count is at 8.6 with a hemoglobin of 12.8. TPN is current to being administered for nutritional support. No other significant events , otherwise his night was uneventful.. The PICC line is in the left upper extremity. The patient also has a Kwan catheter in place. Each in relating a tidal volume of 550 and his respiratory rate is currently in the mid 30s. He seems to be quite comfortable. He is however lethargic. 07/06/2020, the patient is on a BiPAP at a pressure of 16/6 with an FiO2 of 100%. Pulse ox is currently at around 88%. He was having some oxygen desaturations and the patient was brought up to 100% on her BiPAP FiO2. The patient's subsequent reading in a pulse ox in the order of 91%. Remains on TPN for nutritional support. Remains on Decadron 6 mg IV every 24 hours. Remains on Lovenox 45 mg subcu every 12 hours. Blood work shows a d-dimer of 5.64. No electrolyte abnormalities. Condition is essentially unchanged and probably the same as yesterday. Still on Levemir insulin 10 units along with a sliding scale coverage. Blood sugars are adequate for now. He does have a PICC line in left upper extremity. He has a Kwan catheter in place. At around 10:00 this morning, the patient was trialed on the percent nonrebreather with a high flow oxygen at 60 L with an FiO2 of 90%. He desaturated to the low 60s and he was placed accordingly back on BiPAP. 07/07/2020 the patient is a same BiPAP setting which is 60/6 with an FiO2 of 95%. Earlier this morning she was trialed on high flow oxygen with 60 L and FiO2 of 90% and he decompensated and he became profoundly hypoxic and he had to be placed back on the BiPAP. His current pulse ox in the low 90s. He remains on IV Decadron 6 and the rescue 24 hours. He remains on Lovenox 45 mg subcu every 12 hours. Chest x-ray from today is showing stable bilateral interstitial pulmonary infiltrates with some worsening consolidation of the left lower lobe. Meanwhile, the patient is still receiving TPN for nutritional support. He is unable to take oral intake because of his extreme BiPAP dependence. D-dimer is at 4.06 and the patient is on Lovenox 45 mg subcu every 12 hours. He has also LDH level of 962, CRP level is at 8.3, electrolytes are all within normal limits. Unfortunately, he is still doing poorly and is not showing any signs of recovery. He remains on Levemir insulin 10 units daily along with a sliding- scale coverage. He has a Kwan catheter in place. Respiratory rate is in the mid 30s. He is quite lethargic. 2020, the patient continues to be on a BiPAP at a pressure of 16/6 with an FiO2 of 95%. Awake and alert. Slightly tachypneic. Pulse ox is 89% on the above-mentioned BiPAP setting. Minute ventilation as 40 L as we were seeing the patient and his minute ventilation with a. Otherwise his aspirate has been in the high 20s low 30 range. Whenever he sleeps, his respiratory rate goes down. He wants to stay on the BiPAP and he doesn't want to transition to the high flow oxygen today. Repeat chest x-ray was done and the findings are essentially stable with diffuse bilateral pulmonary infiltrates. No evidence of any pneumothorax. No interval progression or worsening his chest x-ray findings. Meanwhile, his blood work shows no major abnormalities. Blood sugars are not elevated. The patient remains on TPN for nutrition support and the patient remains on Decadron IV every 24 hours on Lovenox 45 mg subcu every 12 hours. D- dimer level is at 4.06. Patient was reevaluated today on 07/09/2020, remains on high flow oxygen using airvo and non-rebreather mask. Patient is on 94% FiO2 and 60 L flow per minute. Patient is about the same, not getting any better not getting any worse. He is noted to be slightly tachypneic. Has BiPAP at bedside, but not using it at present. Basic metabolic profile today is normal., Last LDH was trending down to 962 and C-reactive protein 8.3 Patient was reevaluated today on 07/10/2020, remains on high flow oxygen using Airvo and nonrebreather mask. O2 saturation remains marginal in the low 90s and high 80s patient denies being short of breath. He has intermittent cough. His d-dimer is 5.4 to today. Not significantly changed over the last 1 week. Basic metabolic profile is normal renal profile is normal. His last C-reactive protein was 8.3 and his LDH was 962 from 2 days ago. Chest x-ray from 07/08 continues to show persistent bilateral multifocal and comfortable in particular opacities consistent with COVID-19 infection. Patient was reevaluated today on 07/11/2020, remains on high flow oxygen, patient is on nonrebreather plus airvo 90% FiO2 and 60 L flow, O2 saturation remains marginal in the mid to high 80s. Patient in mild distress, but overall he thinks he is getting a bit better. Tried today to change position on the patient and see if his oxygenation improves, did not seem to make much of a difference, and the patient could not lay prone. He had even some difficulty laying on the right side. Remained generally weak, not making significant progress since admission. His CBC looks relatively normal his d-dimer is 5 renal profile is normal. Electrolytes are normal. Last chest x-ray from 2 days ago was consistent with COVID-19 pneumonia. On 07/12/2020 patient seen in follow-up on medical surgical floor, this morning his dyspnea and hypoxia have worsened, he is displaying decreasing oxygen saturations and increasing work of breathing. Patient has been on BiPAP support with pressures of 12 and 6 and 200%, and despite that patient is unable to maintain O2 saturations above 80-82%, he is quite tachypneic. Patient remains on multivitamins, steroids, and Lovenox 45 mg twice daily. He is status post Toci on 07/06/2020. He is receiving nutritional support in the form of TPN, his been unable to take in much by mouth related to his dyspnea, hypoxia, and dependence on high flow oxygen and BiPAP. Stat chest x-ray was obtained showing increasing confluence of airspace disease, and patient's steroids have been switched to Solu-Medrol 60 mg every 6 hours. Today's labs have been reviewed On 07/13/2020 patient seen in follow-up in the intensive care unit, he was trace to the ICU yesterday in view of worsening hypoxia and dyspnea, he is on BiPAP support pressures of 16/8 and FiO2 of 100%, and his pulse ox is 92%, he seems to be comfortable on those settings, breathing comfortably, appears to be in no respiratory distress. He does not tolerate being off the BiPAP and is very much dependent on BiPAP at this time, unable to take any oral meds or oral nutrition, PICC line was inserted in patient continues on TPN for nutritional support at a rate of 85 ML per hour, and lipids on the Thursday schedule, followed by registered dietitian. No other vasoactive drips, no other maintenance drips, hemodynamically he remains stable, he is in sinus mechanism, today's chest x-ray has been reviewed showing improvement in aeration, and patient is currently on IV steroids with Solu-Medrol 60 mg every 6 hours, and he remains on Lovenox 45 mg twice daily, all of his oral medications have been discontinued, and his Lopressor has been switched over to Lopressor IV 20 mg every 6 hours. No complaints of chest discomfort, no cough, lung sounds reveal diffuse crackles. He appears be fairly comfortable. Today's labs have been reviewed showing white blood cell count of 9.0, hemoglobin of 13.9, his d-dimer is improving and is down to 1.84, sodium is 135, the rest of the electrolytes were within normal limits, and BUN is up slightly, at 42, creatinine remains in the normal range of 0.71. LDH is 1492 uptrended a bit from previous value, and CRP is 0.8 On 07/14/2020 patient is seen in follow-up in intensive care unit, she remained BiPAP dependent at this time, BiPAP pressures of 16/8, and FiO2 100%, however he tolerates BiPAP support quite well, no agitation, no attempts to remove the mass, he is quite compliant, pulse ox on those settings is ranging from 93-96%, hemodynamically he is stable, has not had any vasopressor support, he is in sinus mechanism with a rate of 67, he is on 0.9 normal saline at a rate of 29 per hour, TPN is infusing at 85 MLS per hour, patient has not been able to come off the BiPAP support long enough to sustain his oral nutrition. He feels thirsty, and his been coming off the BiPAP mask only for oral care and sips of water. He is awake, he is alert oriented 3, denies acute distress, today's chest x-ray shows mixed interstitial and airspace disease within the lungs similar to the prior exam, no major change. Today's labs have been reviewed, doing a d-dimer slightly trending down, down to 1.25, LDH is 1305, down from yesterday, his CRP is normal at 0.7. Blood cultures have shown no growth. He remains on prophylactic dose Lovenox 40 mg daily, remains on Solu-Medrol 60 mg every 6 hours, he is on morphine as needed 2-4 mg every 4 hours for breathlessness and anxiety, and that has been helping him cope with the BiPAP support. No chest discomfort, no nausea vomiting or diarrhea no abdominal pain. On 07/16/2020 patient seen in follow-up in the intensive care unit, patient was able to lift the BiPAP support, and he is currently on Airvo at 60 L and FiO2 of 90% in addition to 100% nonrebreather mask, tolerating it well so far, he is awake and alert, oriented 3, he is able to taken some oral nutrition, no increased dyspnea, he is maintaining O2 saturations at around 90% on the above mentioned oxygen set up, he is afebrile, he is hemodynamically stable, not in any vasopressor support, he is on 0.9 normal saline at a rate of 20 ML per hour, his TPN has been discontinued. Today's chest x-ray shows bilateral interstitial and airspace disease similar in appearance to previous chest x-ray from yesterday. Today's blood work has been reviewed, showing orbital, 10.2, hemoglobin is 12.9, serum sodium is 135, the rest of electrolytes were unremarkable, BUN is 48, creatinine 0.74, his AST is 96, ALT is 182, worsened since yesterday, total bilirubin is 1.4, his LDH is CRP were not repeated today, but or improving on yesterday's labs. All blood cultures have been negative thus far. He remains on daily dose of Lovenox 40 mg daily, IV steroids 60 mg every 6 hours, and sliding scale insulin in addition to Levemir. Vital signs have been stable, no fever or chills, no nausea vomiting or diarrhea. On 07/17/2020 patient seen in follow-up in intensive care unit, she remains on Airvo at 60 L and FiO2 of 90% in addition to 100% nonrebreather mask and he is maintaining O2 saturations between 86-92%, he is breathing comfortably, no increased dyspnea or cough, vital signs have been stable, he has been afebrile. He is on 0.9 normal seen at 20 ML per hour, no other drips. Tolerating oral intake, TPN has been discontinued, today's labs have been reviewed showing white blood cell count 8.8, hemoglobin of 12.5, d-dimer is 1.48, sodium is 134, there is the rest of the electrolytes are unremarkable, BUN is 49 creatinine 0.83, LDH is 1279, CK is 39, CRP 0.7, laboratory markers are relatively stable. His cultures have been reviewed, all blood cultures have remained negative. He remains on Lovenox 40 mg daily, and IV Solu-Medrol at 60 mg every 6 hours On 07/18/2020 patient seen in follow-up in the intensive care unit, he remains on Airvo at 60 L and FiO2 of 90% in addition to 100% nonrebreather mask is pulse ox is 93-94%, his been off BiPAP support for last 48 hours, tolerating it well so far, tolerating oral intake, TPN has been discontinued, hemodynamically stable, he is afebrile. He did desaturate become short of breath with any exertion, still has a cough. No new chest x-ray today, yesterday chest x-ray showed bilateral interstitial and alveolar infiltrates. Continues on IV Solu- Medrol 60 mg every 6 hours, and prophylactic dose Lovenox. No acute events overnight. Today's labs have been reviewed, white blood cell count is 7.5, he moglobin is 13.4, yesterday's d-dimer was 1.48, serum sodium is 134, potassium is 5.2, BUN is 50 creatinine 0.86, LDH is CRP were improving on yesterday's labs. On 07/19/2020 patient seen in follow-up in the intensive care unit, he remains on Airvo at 60 L and FiO2 of 90%, his pulse ox is 88-93%, not using additional nonrebreather mask. He is resting comfortably in bed, today's chest x-ray shows bilateral airspace disease, and prominent interstitium, no evident pneumothorax or pleural effusion. Today's labs have been reviewed, white blood cell count is 8.0, hemoglobin is 14.2, platelet count is 87, today's d-dimer is 1.75, sodium is 135, potassium is 5.3, the rest of electrolytes were within normal limits, BUN is 53 creatinine 0.86, his LDH is 1438, CRP 0.6. Blood cultures are all negative. He remains on IV Solu-Medrol 60 mg every 6 hours, he is on prophylactic dose Lovenox. 0.9 normal seen at a rate of 20 ML per hour, no other drips, no vasopressor support. He is tolerating oral intake, no nausea vomiting or diarrhea. On 07/20/2000 patient seen in follow-up in intensive care unit, he is on Airvo at 60 L and FiO2 of 90%, his O2 saturation right now is around 90%, he easily desaturates with any activity, at times has to use the nonrebreather mask periods increased dyspnea. No IV fluids, today's chest x-ray shows bilateral airspace disease, prominence of interstitium again noted. Today's labs have been noted, his white blood count, 7.9, hemoglobin is 13.4, lymphocyte count is 0.3, his last d-dimer yesterday was 1.75, sodium is 135, the rest of his electrolytes were unremarkable, his BUN is 49, creatinine is 0.81. Patient continues on IV Solu-Medrol 60 mg every 6 hours, he is on Lovenox 40 mg daily, he is on 0.9 normal saline at a rate of 20 ML per hour, no other drips, he is tolerating oral intake, no nausea vomiting or diarrhea. On 07/21/2020 patient seen in follow-up in intensive care unit, he is awake and alert, oriented 3, he currently remains on Airvo at 60 L and FiO2 of 90%, his pulse ox is around 92%, no IVs infusing at this time, his breathing has been stable, he is dyspneic with conversation or any exertion, overall he has become significantly weak, he has not been up out of bed, but dyspnea has not worsened, patient has not required BiPAP support, he is tolerating oral intake, no nausea vomiting or diarrhea, actually complaining of constipation, he has required stool softeners, and was able to have a bowel movement last night. Today's chest x-ray has been reviewed showing interstitial and airspace disease which is similar in appearance compared to previous chest x-ray. Clinically has remained stable. Continues on Solu-Medrol 60 mg every 6 hours, he is on prophylactic dose Lovenox, some of his home oral meds have been restarted as the patient is tolerating oral intake. On 07/22/2020 patient seen in follow-up in intensive care unit, he is awake and alert, appears to be in no acute distress, his breathing has been stable, he remains on Airvo at 55 L and FiO2 of 79%, his pulse ox is around 89-91%. Patient is afebrile. Hemodynamically his been stable, he is in sinus mechanism, with a rate of 68, no acute events overnight, he is generally weak, he states he was unable to get up in a chair yesterday, requires extensive assistance, lung sounds are stable, with bibasilar crackles, no major cough, no worsening dyspnea. Patient remains on prophylactic dose Lovenox, he is on Solu-Medrol 60 every 6 hours. His LDH is 1324, CRP is less than 0.5, today's d-dimer is 1.2. Objective - Vital Signs Vital signs: Vital Signs Temp 98.6 F 07/22/20 04:00 Pulse 57 L 07/22/20 07:00 Resp 22 07/22/20 07:00 BP 113/68 07/22/20 07:00 Pulse Ox 89 L 07/22/20 07:38 Intake & Output 07/21/20 07/22/20 07/22/20 18:59 06:59 18:59 Intake Total 1472 200 Output Total 850 945 Balance 622 -745 Weight 94.2 kg Intake: Oral 1472 200 Output: Urine 850 945 Other: Voiding Method Indwelling Catheter Indwelling Catheter - Exam GENERAL EXAM: Alert, very pleasant, 70-year-old white male, on Airvo at 55 L and FiO2 of 79%, maintaining O2 saturations around 92% HEAD: Normocephalic/atraumatic. EYES: Normal reaction of pupils, equal size. Conjunctiva pink, sclera white. NOSE: Clear with pink turbinates. THROAT: No erythema or exudates. NECK: No masses, no JVD, no thyroid enlargement, no adenopathy. CHEST: No chest wall deformity. Symmetrical expansion. LUNGS: Equal air entry with diminished breath sounds bilaterally, with bilateral base crackles CVS: Regular rate and rhythm, normal S1 and S2, no gallops, no murmurs, no rubs ABDOMEN: Soft, nontender. No hepatosplenomegaly, normal bowel sounds, no guarding or rigidity. EXTREMITIES: No clubbing, no edema, no cyanosis, 2+ pulses and upper and lower extremities. MUSCULOSKELETAL: Muscle strength and tone normal. SPINE: No scoliosis or deformity SKIN: No rashes CENTRAL NERVOUS SYSTEM: Alert and oriented -3. No focal deficits, tone is normal in all 4 extremities. PSYCHIATRIC: Alert and oriented -3. Appropriate affect. Intact judgment and insight. - Labs CBC & Chem 7: 05/02/21 08:54 07/22/20 08:54 Labs: Abnormal Lab Results - Last 24 Hours (Table) 07/21/20 07/21/20 07/21/20 Range/Units 11:11 15:07 15:07 Plt Count 79 L (150-450) k/uL Lymphocytes # (1.0-4.8) k/uL D-Dimer (<0.60) mg/L FEU Sodium 132 L (137-145) mmol/L BUN 46 H (9-20) mg/dL Glucose 229 H (74-99) mg/dL POC Glucose (mg/dL) 255 H (75-99) mg/dL Lactate Dehydrogenase (313-618) U/L 07/21/20 07/21/20 07/22/20 Range/Units 16:42 20:56 08:54 Plt Count 75 L (150-450) k/uL Lymphocytes # 0.2 L (1.0-4.8) k/uL D-Dimer (<0.60) mg/L FEU Sodium (137-145) mmol/L BUN (9-20) mg/dL Glucose (74-99) mg/dL POC Glucose (mg/dL) 185 H 185 H (75-99) mg/dL Lactate Dehydrogenase (313-618) U/L 07/22/20 07/22/20 Range/Units 08:54 08:54 Plt Count (150-450) k/uL Lymphocytes # (1.0-4.8) k/uL D-Dimer 1.20 H (<0.60) mg/L FEU Sodium 133 L (137-145) mmol/L BUN 42 H (9-20) mg/dL Glucose 138 H (74-99) mg/dL POC Glucose (mg/dL) (75-99) mg/dL Lactate Dehydrogenase 1324 H (313-618) U/L Assessment and Plan Plan: Assessment: #1. Acute hypoxemic respiratory failure secondary to COVID-19 pneumonia. Outside the window for Remdesivir, that is post Toci 800 mg on 07/06/2020 for worsening hypoxic respiratory failure, patient remains very much BiPAP dependent and has not tolerated transitioning to high flow oxygen very well, he required transfer to the intensive care unit today on 07/12/2020 and current BiPAP settings of 14/8 and FiO2 of 100%. Today on 07/19/2020 patient off BiPAP support and is currently on irritable at 55 L and FiO2 of 79% #2. Increased inflammatory markers related to the above, improving #3. Increased d-dimer, lower extremity Dopplers showed no evidence of DVT, patient remains on Lovenox 45 mg twice daily and a d-dimer is improving #4. History of atrial fibrillation, paroxysmal and patient is not on any chronic anticoagulation #5. Coronary artery disease with previous stent placement #6. GERD/reflux #7. Hypertension #8. Hyperlipidemia #9. History of rheumatic fever #10. History of gout #11. Acute kidney injury recovered #12. Decreased oral intake and inability to sustain oral intake related to BiPAP device, and dependence on noninvasive ventilatory support, patient is currently on TPN for nutritional support. TPN has been discontinued, patient is tolerating oral diet today, he is off BiPAP support on 07/16/2020 Plan: Wean FiO2 to keep O2 sats ration is at or above 90%, currently on Airvo at 55 L and FiO2 of 79% Continues to be dyspneic on exertion, but fairly stable, has not required BiPAP support Physical therapy evaluation Today's labs have been noted We'll continue current dose Lovenox and decrease the Solu-Medrol to 40 mg every 8 hours Blood sugar monitoring Encourage oral intake, If remains stable may consider discharging from the intensive care unit to a general medical floor next 24 hours Overall prognosis is guarded I performed a history & physical examination of the patient and discussed their management with my nurse practitioner, Constance El. I reviewed the nurse practitioner's note and agree with the documented findings and plan of care. Lung sounds are positive for bibasilar crackles. The findings and the impression was discussed with the patient. I attest to the documentation by the nurse practitioner. Time with Patient: Greater than 30
[2020-07-22 11:44] LABS: Glucose,Whole Blood 156 mg/dL (75-99)
[2020-07-22] MEDS: MORPHINE SULFATE 4 MG/ML SYRINGE IVP PRN (14:02)
[2020-07-22] MEDS: SODIUM CHLORIDE 0.9% 1,000 ML IV SCH (14:13)
--- NOTE | 2020-07-22 15:05 | P.PN ---
Subjective Progress Note Date: 07/22/20 Principal diagnosis: Acute hypoxic respiratory failure secondary to acute covid 19 pneumonitis. 70-year-old gentleman that was seen in the emergency room on June 21. He was sent into the emergency room after being seen by his primary care doctor because of increasing shortness of breath, and concerns that the patient might have COVID 19. In addition to shortness of breath, the patient states he's been having lots of chest congestion, and is been coughing. When he coughs, it is painful in his chest. He has been sick for at least 2 weeks. In addition, he has muscle aches and joint aches, weakness and fatigue, and fever and chills. Currently, he is on a nonrebreather mask. Saturations are 92%. His primary care physician Dr. Vijay Encarnacion. He was not receiving any IV fluids. His primary medical problems include atrial fibrillation, coronary artery disease, hyperl ipidemia, hypertension, gastroesophageal reflux disease, and prior myocardial infarction. The patient is a lifelong nontobacco user. White count is 4.9, hemoglobin 13.5, hematocrit 39.5, platelet count 92,000. PTT 61.3. D-dimer 2.41. Sodium 132, potassium 4.8, chloride 105, CO2 18, anion gap 9, BUN and creatinine 52 and 2.05. Calcium 7.6, AST 156, pO2 102, LDH 2018. C-reactive protein 158. I was not able to look at the chest x-ray. There is apparently a partially occlusive opacity at the right lung base consistent with acute pneumonic process. CT angiogram was not performed. 06/23/2020 patient is seen and evaluated in the room at bedside reports feeling better today compared to how he felt yesterday. Patient is on high flow cannula running at 15 L/m, his O2 saturation is in the mid to high 80s he is on 100% FiO2 basically. His chest x-ray does not seem to be impressive, he does have consolidative opacity in the right lung base consistent with acute pneumonic process. Left lung is relatively clear. No significant pulmonary congestion. D-dimer is 2.56. Unable to perform CT angiogram of the chest due to compromised renal function, however I will recommend bilateral venous Doppler on this patient just to make sure we were not dealing with thromboembolic process. Again the patient tells me that his feeling better today compared to how he felt yesterday. Clinically improving. 06/24/2020 Patient is seen and evaluated in room at bedside; remains on O2 per H HF NC at 15 L along with nonrebreather mask with O2 saturation around 88%; cardiology is consulted to evaluate patient for his request Cardiology evaluated patient and have recommended to resume home anticoagulation therapy in form of Xarelto at 15 mg daily and discontinue Lovenox; lisinopril is recommended to be held due to mild AK I and hyperkalemia; we will continue to monitor renal function and electrolytes closely; continue with supplemental oxyg en with plans to wean off as tolerated; patient remains on subcu Lovenox and Decadron along with vitamins 07/07/2020 patient is seen and evaluated at bedside ; remains on BiPAP setting which is 60/6 with an FiO2 of 95%. Patient failed a trial of transition to high flow o xygen with 60 L and FiO2 of 90% and he decompensated and he became profoundly hypoxic and he had to be placed back on the BiPAP. His current pulse ox in the low 90s. He remains on IV Decadron 6 and the rescue 24 hours. He remains on Lovenox 45 mg subcu every 12 hours. Chest x-ray from today is showing stable bilateral interstitial pulmonary infiltrates with some worsening consolidation of the left lower lobe. Meanwhile, the patient is still receiving TPN for nutritional support. He is unable to take oral intake because of his extreme BiPAP dependence. D-dimer is at 4.06 and the patient is on Lovenox 45 mg subcu every 12 hours. He has also LDH level of 962, CRP level is at 8.3, electrolytes are all within normal limits. Unfortunately, he is still doing poorly and is not showing any signs of recovery. He remains on Levemir insulin 10 units daily along with a sliding-scale coverage. He has a Kwan catheter in place. Respiratory rate is in the mid 30s. He is quite lethargic. 07/08/2020 Patient is seen in ICU; remains on a BiPAP; with an FiO2 of 95%. Awake and alert. Slightly tachypneic. Pulse ox is 89% on the above-mentioned BiPAP setting. He wants to stay on the BiPAP and he doesn't want to transition to the high flow oxygen today. Chest x-ray was done and the findings are essentially stable with diffuse bilateral pulmonary infiltrates. No evidence of any pneumothorax. No interval progression or worsening his chest x-ray findings. Meanwhile, his blood work shows no major abnormalities. Blood sugars are not elevated. The patient remains on TPN for nutrition support and the patient remains on Decadron IV every 24 hours on Lovenox 45 mg subcu every 12 hours. D-dimer level is at 4.06. 07/21/2020 patient seen and evaluated in follow-up in intensive care unit, he is awake and alert, oriented 3, he currently remains on Airvo at 60 L and FiO2 of 90%, his pulse ox is around 92%, no IVs infusing at this time, his breathing has been stable, he is dyspneic with conversation or any exertion, overall he has become significantly weak, he has not been up out of bed, but dyspnea has not worsened, patient has not required BiPAP support, he is tolerating oral intake, no nausea vomiting or diarrhea, actually complaining of constipation, he has required stool softeners, and was able to have a bowel movement last night. Today's chest x-ray has been reviewed showing interstitial and airspace disease which is similar in appearance compared to previous chest x-ray. Clinically has remained stable. Continues on Solu-Medrol 60 mg every 6 hours, he is on prophylactic dose Lovenox, some of his home oral meds have been restarted as the patient is tolerating oral intake. 07/22/2020 patient is seen and evaluated in follow-up in intensive care unit. Patient is awake and alert, appears to be in no acute distress, his breathing has been stable, he remains on Airvo at 55 L and FiO2 of 79%, his pulse ox is around 89- 91%. Patient is afebrile. Hemodynamically his been stable, he is in sinus mechanism, with a rate of 68, no acute events overnight, he is generally weak, he states he was unable to get up in a chair yesterday, requires extensive assistance, lung sounds are stable, with bibasilar crackles, no major cough, no worsening dyspnea. Patient remains on prophylactic dose Lovenox, he is on Solu-Medrol 60 every 6 hours. His LDH is 1324, CRP is less than 0.5, today's d-dimer is 1.2. We will continue to try to wean FiO2 down to keep SpO2 greater than 90%; pulmo nary service recommending to increase activity with PT/OT Objective - Vital Signs Vital signs: Vital Signs Temp 98.6 F 07/22/20 04:00 Pulse 57 L 07/22/20 07:00 Resp 22 07/22/20 07:00 BP 113/68 07/22/20 07:00 Pulse Ox 89 L 07/22/20 07:38 Intake & Output 07/21/20 07/22/20 07/22/20 18:59 06:59 18:59 Intake Total 1472 200 Output Total 850 945 Balance 622 -745 Weight 94.2 kg Intake: Oral 1472 200 Output: Urine 850 945 Other: Voiding Method Indwelling Catheter Indwelling Catheter - Exam Physical Exam: Revealed a 70-year-old white male in no distress. Head: Atraumatic, normocephalic. HEENT:[Neck is supple.] [No neck masses.] [No thyromegaly.] [No JVD.] Chest: [Bibasilar crackles noted, right more so than left, no rhonchi and no wheezes. Cardiac Exam: [Normal S1 and S2, no S3 gallop, no murmur.] Abdomen: [Soft, nontender, no megaly, no rebound, no guarding, normal bowel sounds.] Extremities: [No clubbing, no edema, no cyanosis.] Neurological Exam: [No focal neurologic deficit.] Alert oriented 3. Psychiatric: Normal mood affect and normal mental status examination - Labs CBC & Chem 7: 07/22/20 08:54 07/22/20 08:54 Labs: Abnormal Lab Results - Last 24 Hours (Table) 07/21/20 07/21/20 07/21/20 Range/Units 11:11 15:07 15:07 Plt Count 79 L (150-450) k/uL Sodium 132 L (137-145) mmol/L BUN 46 H (9-20) mg/dL Glucose 229 H (74-99) mg/dL POC Glucose (mg/dL) 255 H (75-99) mg/dL 07/21/20 07/21/20 Range/Units 16:42 20:56 Plt Count (150-450) k/uL Sodium (137-145) mmol/L BUN (9-20) mg/dL Glucose (74-99) mg/dL POC Glucose (mg/dL) 185 H 185 H (75-99) mg/dL Assessment and Plan Assessment: Sepsis secondary to Acute Covid -19 pneumonia Acute hypoxic respiratory failure secondary to the above Acute renal failure secondary to the above Coronary artery disease with history of NV,stent placement History of Gout Hypertension Chronic paroxysmal atrial fibrillation Chronic systolic CHF, EF 35-40% Recommendation: Out of the window for REM. Continue the Covid 19 cocktail. Continue Lovenox and Decadron. Titrate FiO2 accordingly. We'll recommend venous Doppler of the lower extremities. Continue to monitor renal profile. We will continue to follow.
[2020-07-22] MEDS: methylPREDNISolone SOD SUCCI 40 MG/ML 1 ML VIAL IV SCH (17:20)
[2020-07-22 17:40] LABS: Glucose,Whole Blood 91 mg/dL (75-99)
[2020-07-22] MEDS: OLANZapine 7.5 MG TAB PO SCH (20:31)
[2020-07-22 20:41] LABS: Glucose,Whole Blood 181 mg/dL (75-99)
[2020-07-23] MEDS: methylPREDNISolone SOD SUCCI 40 MG/ML 1 ML VIAL IV SCH (00:16)
[2020-07-23] MEDS: MORPHINE SULFATE 4 MG/ML SYRINGE IVP PRN ×4 (00:33→17:26)
[2020-07-23 04:34] LABS: Basophils % (A) 0 %; Eosinophils # (A) 0.1 k/uL (0-0.7); Eosinophils % (A) 1 %; HCT 43.1 % (39.0-53.0); Lymphocytes # (A) 0.3 k/uL (1.0-4.8); Lymphocytes % (A) 3 %; MCH 30.6 pg (25.0-35.0); MCHC 32.6 g/dL (31.0-37.0); MCV 93.9 fL (80.0-100.0); Mean Platelet Volume 9.3; Monocytes # (A) 0.5 k/uL (0-1.0); Monocytes % (A) 5 %; Neutrophils # (A) 7.6 k/uL (1.3-7.7); Neutrophils % (A) 90 %; Platelet Count 69 k/uL (150-450); RBC 4.59 m/uL (4.30-5.90); RDW 14.4 % (11.5-15.5); WBC 8.5 k/uL (3.8-10.6)
[2020-07-23 04:43] LABS: African American GFR (CKD) >90 (>60 ml/min/1.73 sqM); Anion Gap 5 mmol/L; Blood Urea Nitrogen 40 mg/dL (9-20); C Reactive Protein 0.6 mg/dL (<1.0); Calcium 8.3 mg/dL (8.4-10.2); Carbon Dioxide 27 mmol/L (22-30); Chloride 101 mmol/L (98-107); Glucose 88 mg/dL (74-99); LDH 1600 U/L (313-618); Non-African American GFR(CKD) >90 (>60 ml/min/1.73 sqM); Sodium 133 mmol/L (137-145)
[2020-07-23 07:18] LABS: Glucose,Whole Blood 86 mg/dL (75-99)
[2020-07-23] MEDS: INSULIN ASPART (NovoLOG) 100 UNIT/ML VIAL SQ SCH ×4 (07:28→20:28)
--- NOTE | 2020-07-23 07:52 | P.PN ---
Subjective Progress Note Date: 07/23/20 Acute hypoxemic respiratory failure secondary to CoVID 19 pneumonitis On 07/23/2020, I'm seeing this patient in follow-up regarding his hypoxic respiratory failure due to COVID 19 related pneumonia. The patient has been hospital for almost a month and even more and the patient during the course of the treatment did not require any intubation or mechanical ventilation. The patient was treated with high flow oxygen, BiPAP and currently is back on oxygen with high flow at 55 L an FiO2 of 80%. Pulse ox is been ranging between 88% and 90%. Remains hemodynamically stable. Remains on steroids. Remains on Lovenox for DVT prophylaxis. Inflammatory markers are being monitored. He is afebrile. On the blood work, the patient has no significant leukocytosis, the patient has chronic thrombocytopenia with a platelet count of 75, electrodes are all within normal, renal function is normal, LDH from yesterday was 1324 with a CRP level of less than 0.5. Currently on Solu-Medrol 40 mg every 8 hours, Lovenox 40 mg every 24 hours. The chest x-ray showing diffuse interstitial infiltrates bilaterally without any major interval change compared to a few days ago. The patient was given a Fleet enema yesterday and he had a adequate bowel movements. On today's evaluation, his d-dimer is at 1.38 and LDH is at 1600 with a CRP of 0.6. Objective - Vital Signs Vital signs: Vital Signs Temp 98.0 F 07/23/20 04:00 Pulse 63 07/23/20 07:00 Resp 20 07/23/20 07:00 BP 110/64 07/23/20 07:00 Pulse Ox 90 L 07/23/20 07:00 Intake & Output 07/22/20 07/23/20 07/23/20 18:59 06:59 18:59 Intake Total 960 390 20 Output Total 610 720 200 Balance 350 -330 -180 Weight 94.3 kg Intake: IV 60 240 20 .9 KVO 60 240 20 Oral 900 150 Output: Urine 610 720 200 Other: Voiding Method Indwelling Catheter Indwelling Catheter - Exam GENERAL EXAM: Alert, very pleasant, 70-year-old white male, on Airvo at 55 L and FiO2 of 79%, maintaining O2 saturations around 92% HEAD: Normocephalic/atraumatic. EYES: Normal reaction of pupils, equal size. Conjunctiva pink, sclera white. NOSE: Clear with pink turbinates. THROAT: No erythema or exudates. NECK: No masses, no JVD, no thyroid enlargement, no adenopathy. CHEST: No chest wall deformity. Symmetrical expansion. LUNGS: Equal air entry with diminished breath sounds bilaterally, with bilateral base crackles CVS: Regular rate and rhythm, normal S1 and S2, no gallops, no murmurs, no rubs ABDOMEN: Soft, nontender. No hepatosplenomegaly, normal bowel sounds, no guarding or rigidity. EXTREMITIES: No clubbing, no edema, no cyanosis, 2+ pulses and upper and lower extremities. MUSCULOSKELETAL: Muscle strength and tone normal. SPINE: No scoliosis or deformity SKIN: No rashes CENTRAL NERVOUS SYSTEM: Alert and oriented -3. No focal deficits, tone is normal in all 4 extremities. PSYCHIATRIC: Alert and oriented -3. Appropriate affect. Intact judgment and insight. - Labs CBC & Chem 7: 07/23/20 03:35 07/23/20 03:35 Labs: Abnormal Lab Results - Last 24 Hours (Table) 07/22/20 07/22/20 07/22/20 Range/Units 08:54 08:54 08:54 Plt Count 75 L (150-450) k/uL Lymphocytes # 0.2 L (1.0-4.8) k/uL D-Dimer 1.20 H (<0.60) mg/L FEU Sodium 133 L (137-145) mmol/L BUN 42 H (9-20) mg/dL Creatinine (0.66-1.25) mg/dL Glucose 138 H (74-99) mg/dL POC Glucose (mg/dL) (75-99) mg/dL Calcium (8.4-10.2) mg/dL Lactate Dehydrogenase 1324 H (313-618) U/L 07/22/20 07/22/20 07/23/20 Range/Units 11:43 20:40 03:35 Plt Count 69 L (150-450) k/uL Lymphocytes # 0.3 L (1.0-4.8) k/uL D-Dimer (<0.60) mg/L FEU Sodium (137-145) mmol/L BUN (9-20) mg/dL Creatinine (0.66-1.25) mg/dL Glucose (74-99) mg/dL POC Glucose (mg/dL) 156 H 181 H (75-99) mg/dL Calcium (8.4-10.2) mg/dL Lactate Dehydrogenase (313-618) U/L 07/23/20 07/23/20 Range/Units 03:35 03:35 Plt Count (150-450) k/uL Lymphocytes # (1.0-4.8) k/uL D-Dimer 1.38 H (<0.60) mg/L FEU Sodium 133 L (137-145) mmol/L BUN 40 H (9-20) mg/dL Creatinine 0.64 L (0.66-1.25) mg/dL Glucose (74-99) mg/dL POC Glucose (mg/dL) (75-99) mg/dL Calcium 8.3 L (8.4-10.2) mg/dL Lactate Dehydrogenase 1600 H (313-618) U/L Assessment and Plan Plan: #1. Acute hypoxemic respiratory failure secondary to COVID-19 pneumonia. Outside the window for Remdesivir, that is post Tocilizumab 800 mg on 07/06/2020 for worsening hypoxic respiratory failure, patient remained very much BiPAP dependent and has not tolerated transitioning to high flow oxygen very well, he required transfer to the intensive care unit today on 07/12/2020 and current BiPAP settings of 14/8 and FiO2 of 100%. On 07/19/2020 patient off BiPAP support and is currently on irritable at 55 L and FiO2 of 79% pH level is still elevated at 1600, CRP is down. #2. Increased inflammatory markers related to the above, improving #3. Increased d-dimer, lower extremity Dopplers showed no evidence of DVT, patient remains on Lovenox 45 mg twice daily and a d-dimer is improving #4. History of atrial fibrillation, paroxysmal and patient is not on any chr onic anticoagulation #5. Coronary artery disease with previous stent placement #6. GERD/reflux #7. Hypertension #8. Hyperlipidemia #9. History of rheumatic fever #10. History of gout #11. Acute kidney injury recovered #12. Decreased oral intake and inability to sustain oral intake related to BiPAP device, and dependence on noninvasive ventilatory support, patient is currently on TPN for nutritional support. TPN has been discontinued, patient is tolerating oral diet today, he is off BiPAP support on 07/16/2020 Plan: Airvo at 55 L and FiO2 of 79% Titrate FiO2 to maintain a saturation above 90% Physical therapy evaluation We'll continue current dose Lovenox Solu-Medrol to 40 mg every 8 hours discontinue IV Solu Medrol put the patient prednisone 40 mg by mouth daily Drop-down the Lovenox dose to 40 mg subcu every 24 hours Blood sugar monitoring Encourage oral intake, Transferred out from the intensive care unit to a general medical floor next 24 hours Overall prognosis is guarded
[2020-07-23] MEDS: ALBUTEROL HFA INHALER INHALATION PRN ×4 (07:54→21:18)
[2020-07-23] MEDS: METOPROLOL TARTRATE 25 MG TAB PO SCH ×2 (08:57→20:11)
[2020-07-23] MEDS: INSULIN DETEMIR (LEVEMIR) 100 UNIT/ML SYR SQ SCH (08:57)
[2020-07-23] MEDS: allopurinoL 100 MG TAB PO SCH (08:57)
[2020-07-23] MEDS: SENNOSIDES-DOCUSATE SODIUM 1 EACH TAB PO SCH ×2 (08:57→20:12)
[2020-07-23] MEDS: ENOXAPARIN 40 MG/0.4 ML SYRINGE SQ SCH (08:57)
[2020-07-23] MEDS: DOCUSATE 100 MG CAP PO SCH ×2 (08:57→20:28)
[2020-07-23] MEDS: FAMOTIDINE 20 MG TAB PO SCH ×2 (08:57→20:28)
[2020-07-23] MEDS: predniSONE 20 MG TAB PO SCH (08:57)
--- NOTE | 2020-07-23 09:38 | XR ---
EXAMINATION TYPE: XR chest 1V portable DATE OF EXAM: 07/23/2020 CLINICAL HISTORY: covid. TECHNIQUE: Portable semiupright view of the chest. COMPARISON: 07/20/2020 FINDINGS: Left PIC redemonstrated. The cardiomediastinal silhouette is within normal limits for size . Interstitial opacities with primarily peripheral distribution are not significantly changed. No ple ural effusion. No pneumothorax seen. No acute displaced osseous fracture. IMPRESSION: Unchanged moderate interstitial opacities, worse peripherally.
[2020-07-23 11:52] LABS: Glucose,Whole Blood 104 mg/dL (75-99)
[2020-07-23 17:07] LABS: Glucose,Whole Blood 167 mg/dL (75-99)
[2020-07-23] MEDS: SODIUM CHLORIDE 0.9% 1,000 ML IV SCH (17:09)
--- NOTE | 2020-07-23 17:28 | P.PN ---
Subjective Progress Note Date: 07/23/20 This is 70-year-old gentleman with past medical history of hypertension, and gastroesophageal reflux disease, CAD, NH, chronic back pain with history of laminectomy and multiple other medical issues presented to the ER with history of fevers ,worsening shortness of breath. Patient had seen his PCP last week on Thursday the and was recommended to go for his covid test. Patient apparently never went for his test. Yesterday completed a tele visit with his PCP, Dr. Encarnacion, referred to the ER. Patient tested positive for Covid infection while in the ER. On admission patient hypoxic with O2 sat of 80% on room air, required nonrebreather to maintain O2 sats in the 90s to 100%. Febrile on admission with temperature 99.9, normal WBC. D-dimer 2.41, sodium 132, BUN 52, creatinine 2.05, ferritin 1556.7 total bili elevated on admission now within normal limits, mildly elevated LFTs, LDH 2411currently 2018, CRP 158.4. Given patient's renal function and respiratory status unable to proceed with CTA of chest or VQ to rule out PE, currently on heparin drip. Chest x-ray reported partially consolidative opacity in the right lung base consistent with acute pneumonic process. Telemetry sinus rhythm with fusion complexes and PACs with left axis deviation. Denies chest pain, palpitations. 06/25/2020 during the night and again this morning patient removing his oxygen, desatting into the high 40s, turning blue, return to 15 L high flow in addition to nonrebreather, O2 sats initially in the high 80s. As the morning progressed, only maintaining O2 sats in the low 80s and transitioned to BiPAP mask. Chest x-ray reported diffuse bilateral patchy infiltrates stable. Denies chest pain, palpitations. Xanax administered for anxiety. Continue to develop more agitation attempting deplorable off mask. dog or animal sitter placed in room. Eventually patient required IV push Haldol. Patient now maintaining O2 sat of 94% on 100% BiPAP. Afebrile, WBC 14.8. Creatinine improving, 1.28. 06/26/2020 requiring 100% BiPAP to maintain O2 sats in the low 90s. T-max 102.6. WBC 14.9. Telemetry reporting Sinus Tachycardia with heart rates up into the 120s. Echo reported LV function 40-45% . Potassium 5.2, Renal function improving. Blood sugars controlled. Anxious, agitated, combative at times. Sitter remains at bedside. Receiving when necessary Haldol. Staff reports patient was asking for the bar mayandel, unclear if history of EtOH abuse, with questionable withdrawal. Psychiatry consult in place with recommendations pending. 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 Received Ativan 1 mg IV push. Agitation lessened. Staff reports carmen ent was choking on water. Spiking fevers, T-max 100.5, labs pending. Taking O2 sats of 90 on 60% BiPAP. 06/28/2020 rough night with increased agitation and confusion despite Prolixin and Zyprexa. Reevaluated by psychiatry this morning with medication changes noted and appreciated. Unable to wean from 100% BiPAP, maintaining O2 sats of mid 80s to low 90s. Speech therapy unable to conduct swallow evaluation as patient unable to tolerate being off of BiPAP. Poor oral intake, renal function worsening. Sitter remains at bedside. Afebrile. 06/29/2020 100% BiPAP, maintaining O2 sats in the low 90s. Had a better night with less agitation, received Prolixin. Less confused this morning. Asking for ice chip. Complains of chronic back pain. Discussed CODE STATUS and patient wishes to remain a full code. Denies any chest pain, palpitations. BUN 43, creatinine 1.18. Received PICC line with TPN initiated yesterday. Blood sugars controlled. 07/02/2020 remains on 80% BiPAP, maintaining O2 sats in the high 80s. Minimal reserve-Unable to tolerate being off BiPAP mask . Receiving TPN via PICC line. Reporting that he is hungry.Calm, maintained on Zyprexa, prn Prolixin as per p sychiatry. Did not require Prolixin over the weekend. Sensorium significantly improved. Afebrile. D-dimer, LDH decreased, CRP increased. 07/03/2020 continue on 80% BiPAP, calm, maintaining O2 sats in the mid 90s. Hungry, asking for food, receiving TPN. Also asking for a writing board to co mmunicate easier. 07/04/2020 significant improvement in sensorium .weaned off of BiPAP currently maintaining O2 sats in the high 80s to low 90s on both high flow nasal cannula/nonrebreather. Productive cough. Continues on TPN with bites of food intermittently. Blood sugars ranging from 130 to 225. Continue on Covid cocktail including Decadron. Denies chest pain, palpitations. 07/05/2020 Staff reports patient desatted down into the 70s this morning within minutes of taken off mask (patient had been on 60L high flow nasal cannula and nonrebreather )to have a few bites of oatmeal. Slow recovery and 80% BiPAP mask reapplied. Receiving TPN via PICC line as well. Continues on Covid cocktail. Blood sugars better controlled on low-dose Levemir insulin. T-max 100.5, WBC 8.6. 07/06/2020 Desatted to the low 60s on high flow nasal cannula with nonrebreather. BiPAP 100% maintaining O2 sats of 89%. Maintained on TPN . Continues on Covid cocktail. Inflammatory markers remain elevated. Afebrile, T-max 99. Blood sugars controlled. 07/09/2020 Airvo/NRB, maintaining O2 sats in the high 80s. Afebrile. Blood sugars 160s to 190s. 07/10/2020 currently on high flow nasal cannula 60% and nonrebreather maintaining O2 sats 86-80%. Reports mild anxiety this morning. Afebrile. Labs pending. 07/16/2020 weaned off BiPAP today, currently maintained on 90% FiO2 Airvo + NRB maintaining O2 sats in the high 80s to low 90s.Chest x-ray reports bilateral interstitial and airspace disease similar to prior exam. Hemoglobin 12.9, Platelets 105. TPN discontinued, consistent carb diet initiated. Afebrile, normal WBC, blood cultures reporting no growth. T bili, AST, ALT worsened. Albumin 2.5. Continues on bronchodilators, IV steroids with blood sugars better controlled this morning. 07/17/2020 Maintained on FiO2 85% with O2 sats of 89-91%. Chest x-ray reporting stable bilateral interstitial and alveolar infiltrates. Sitting up in chair,teary-eyed over finally getting out of bed. Consuming 50% of breakfast with no nausea vomiting or diarrhea. Blood sugars controlled. Passing flatus. Mild delirium reported by staff, will re-initiate Zyprexa,as previously recommended per psychiatry. Afebrile, WBC 8.8. Hemoglobin 12.5, platelets 103. D-dimer was 0.48, sodium 134, BUN 29, creatinine 0.83. ALT 202. Ferritin decreased to 1138.4, CK 39, CRP 0.7. 07/18/2020 maintained on FiO2 90% with O2 sats 93-94%. Afebrile, normal WBC. Hemoglobin 13.4, platelets 94. Blood sugars controlled. Sodium 134., Potassium 5.2. 07/20/2020 maintained on 91% FiO2/airvo maintaining O2 sats of 90-94%. Chest x- ray pending. Telemetry sinus rhythm to sinus bradycardia with PACs. Tolerating diet with no nausea vomiting or diarrhea. Blood sugars controlled. Complaining of constipation and having to use bedpan, but severely weak, unable to stand even with a 2 person assist, requires a Shira lift to place in chair. Reinforced patient's need for subacute rehab at discharge. afebrile, normal WBC. Sensorium significantly improved, mild fluctuating delirium. 07/23/2020 FiO2 78% airvo, maintaining O2 sats mid 80s to 90%. Chest x-ray reporting unchanged moderate interstitial opacities, worse peripherally. Afebrile, normal WBC. Sodium remains at 133. D-dimer/ LDH increased. CRP 0.6.Platelets 69.Staff reporting good diet intake, blood sugars controlled. Last bowel movement yesterday, required a Fleet's enema. DVT prophylaxis with Lovenox Significant weakness persists, requiring shira lift to chair. Discussed subacute rehab again at bedside. Objective - Vital Signs Vital signs: Vital Signs Temp 98.6 F 07/23/20 14:30 Pulse 91 07/23/20 14:30 Resp 26 H 07/23/20 14:30 BP 130/55 07/23/20 14:30 Pulse Ox 86 L 07/23/20 14:30 Intake & Output 07/22/20 07/23/20 07/23/20 18:59 06:59 18:59 Intake Total 960 390 20 Output Total 610 720 200 Balance 350 -330 -180 Weight 94.3 kg 94.3 kg Intake: IV 60 240 20 .9 KVO 60 240 20 Oral 900 150 Output: Urine 610 720 200 Other: Voiding Method Indwelling Catheter Indwelling Catheter Indwelling Catheter - Exam GENERAL: Sitting up in bed, no acute distress, extremely weak CHEST EXAMINATION: Symmetrical expansion. Diminished, fine bibasilar crackles CARDIAC: Normal S1, S2 with no gallops. No murmurs ABDOMEN: Soft. Bowel sounds normal. No guarding. Positive bowel sounds Extremities: no edema. No clubbing or cyanosis. No calf pain. Neurologically: Cranial nerves II through XII grossly intact , no focal deficits, Moving all extremities. Skin: Warm and dry, no rashes. - Labs CBC & Chem 7: 07/23/20 03:35 07/23/20 03:35 Labs: Abnormal Lab Results - Last 24 Hours (Table) 07/22/20 07/23/20 07/23/20 Range/Units 20:40 03:35 03:35 Plt Count 69 L (150-450) k/uL Lymphocytes # 0.3 L (1.0-4.8) k/uL D-Dimer 1.38 H (<0.60) mg/L FEU Sodium (137-145) mmol/L BUN (9-20) mg/dL Creatinine (0.66-1.25) mg/dL POC Glucose (mg/dL) 181 H (75-99) mg/dL Calcium (8.4-10.2) mg/dL Lactate Dehydrogenase (313-618) U/L 07/23/20 07/23/20 07/23/20 Range/Units 03:35 11:39 16:59 Plt Count (150-450) k/uL Lymphocytes # (1.0-4.8) k/uL D-Dimer (<0.60) mg/L FEU Sodium 133 L (137-145) mmol/L BUN 40 H (9-20) mg/dL Creatinine 0.64 L (0.66-1.25) mg/dL POC Glucose (mg/dL) 104 H 167 H (75-99) mg/dL Calcium 8.3 L (8.4-10.2) mg/dL Lactate Dehydrogenase 1600 H (313-618) U/L Assessment and Plan Assessment: Sepsis secondary to Acute Covid -19 pneumonia, status post TOCI Acute hypoxic respiratory failure secondary to the above, Acute delirium, acute metabolic encephalopathy secondary to the above, possibly acute hypoxic encephalopathy, medication induced, steroids, benzos, opiates. Possible steroid psychosis. Significantly improved. Acute renal failure secondary to the above, improving Hyperglycemia, steroid-induced Thrombocytopenia Gastroesophageal reflux disease Chronic paroxysmal atrial fibrillation Chronic systolic CHF, EF 35-40% Coronary artery disease with history of NH,stent placement Former nicotine dependence Hypertension Mild to moderate protein calorie malnutrition , status post TPN Plan: Continue on current medication regime ,monitoring and symptomatic treatment.Titration of FiO2 as per pulmonary. Aggressive pulmonary toileting . Reinforced subacute rehab at discharge-patient continues to have significant weakness as mentioned above. PT/OT. 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 The impression and plan of care has been dictated as directed. : I performed a history and examination of this patient, discussed the same with the dictator. I agree with the dictator's note ,documented as a scribe. Any additional findings or plans will be noted.
[2020-07-23] MEDS: LACTULOSE 20 GM/30 ML CUP PO SCH (19:47)
[2020-07-23 20:09] LABS: Glucose,Whole Blood 151 mg/dL (75-99)
[2020-07-23] MEDS: OLANZapine 7.5 MG TAB PO SCH (20:28)
[2020-07-24] MEDS: ALBUTEROL HFA INHALER INHALATION PRN ×2 (02:40→07:54)
[2020-07-24 04:16] LABS: Basophils % (A) 1 %; Eosinophils # (A) 0.2 k/uL (0-0.7); Eosinophils % (A) 2 %; Lymphocytes # (A) 0.4 k/uL (1.0-4.8); Lymphocytes % (A) 5 %; MCH 31.3 pg (25.0-35.0); MCHC 34.1 g/dL (31.0-37.0); MCV 91.6 fL (80.0-100.0); Mean Platelet Volume 9.4; Monocytes # (A) 0.3 k/uL (0-1.0); Monocytes % (A) 4 %; Neutrophils # (A) 7.1 k/uL (1.3-7.7); Neutrophils % (A) 87 %; RBC 4.48 m/uL (4.30-5.90); RDW 14.2 % (11.5-15.5); WBC 8.1 k/uL (3.8-10.6)
[2020-07-24 04:18] LABS: Platelet Count 61 k/uL (150-450)
[2020-07-24 04:43] LABS: African American GFR (CKD) >90 (>60 ml/min/1.73 sqM); Anion Gap 2 mmol/L; Blood Urea Nitrogen 44 mg/dL (9-20); Calcium 8.3 mg/dL (8.4-10.2); Carbon Dioxide 31 mmol/L (22-30); Chloride 100 mmol/L (98-107); Glucose 96 mg/dL (74-99); Non-African American GFR(CKD) >90 (>60 ml/min/1.73 sqM); Potassium 4.8 mmol/L (3.5-5.1); Sodium 133 mmol/L (137-145)
[2020-07-24 07:03] LABS: Glucose,Whole Blood 82 mg/dL (75-99)
[2020-07-24] MEDS: INSULIN ASPART (NovoLOG) 100 UNIT/ML VIAL SQ SCH ×4 (07:22→20:46)
[2020-07-24] MEDS: LACTULOSE 20 GM/30 ML CUP PO SCH (07:23)
[2020-07-24] MEDS: predniSONE 20 MG TAB PO SCH (07:34)
[2020-07-24] MEDS: DOCUSATE 100 MG CAP PO SCH ×2 (07:34→20:45)
[2020-07-24] MEDS: SENNOSIDES-DOCUSATE SODIUM 1 EACH TAB PO SCH ×2 (07:34→21:33)
[2020-07-24] MEDS: METOPROLOL TARTRATE 25 MG TAB PO SCH ×2 (07:35→21:32)
[2020-07-24] MEDS: FAMOTIDINE 20 MG TAB PO SCH ×2 (07:35→21:32)
[2020-07-24] MEDS: allopurinoL 100 MG TAB PO SCH (07:35)
[2020-07-24] MEDS: INSULIN DETEMIR (LEVEMIR) 100 UNIT/ML SYR SQ SCH (07:37)
[2020-07-24] MEDS: MORPHINE SULFATE 2 MG/ML SYRINGE IVP PRN (07:37)
[2020-07-24 10:16] LABS: Partial Thromboplastin Time 21.9 sec (22.0-30.0)
[2020-07-24 11:52] LABS: Glucose,Whole Blood 153 mg/dL (75-99)
--- NOTE | 2020-07-24 14:26 | P.PN ---
Subjective Progress Note Date: 07/24/20 Principal diagnosis: Acute hypoxic respiratory failure secondary to COVID-19 pneumonia This is a 70-year-old gentleman that was seen in the emergency room on June 21. He was sent into the emergency room after being seen by his primary care doctor because of increasing shortness of breath, and concerns that the patient might have COVID 19. In addition to shortness of breath, the patient states he's been having lots of chest congestion, and is been coughing. When he coughs, it is painful in his chest. He has been sick for at least 2 weeks. In addition, he has muscle aches and joint aches, weakness and fatigue, and fever and chills. Currently, he is on a nonrebreather mask. Saturations are 92%. His primary care physician Dr. Vijay Encarnacion. He was not receiving any IV fluids. His primary medical problems include atrial fibrillation, coronary artery disease, hype rlipidemia, hypertension, gastroesophageal reflux disease, and prior myocardial infarction. The patient is a lifelong nontobacco user. White count is 4.9, hemoglobin 13.5, hematocrit 39.5, platelet count 92,000. PTT 61.3. D-dimer 2.41. Sodium 132, potassium 4.8, chloride 105, CO2 18, anion gap 9, BUN and creatinine 52 and 2.05. Calcium 7.6, AST 156, pO2 102, LDH 2018. C-reactive protein 158. I was not able to look at the chest x-ray. There is apparently a partially occlusive opacity at the right lung base consistent with acute pneumonic process. CT angiogram was not performed. Patient was reevaluated today on 06/23/2020, patient is feeling better today compared to how he felt yesterday. Patient is on high flow cannula running at 15 L/m, his O2 saturation is in the mid to high 80s he is on 100% FiO2 basically. His chest x-ray does not seem to be impressive, he does have consoli dative opacity in the right lung base consistent with acute pneumonic process. Left lung is relatively clear. No significant pulmonary congestion. D-dimer is 2.56. Renal profile is not good enough for performing a CT angiogram of the chest, however I will recommend bilateral venous Doppler on this patient just to make sure we were not dealing with thromboembolic process. Again the patient tells me that his feeling better today compared to how he felt yesterday. Clinically improving. Patient was reevaluated today on 06/24/2020, patient remains on high flow oxygen. He is on 15 L high flow cannula, and his O2 saturations 92% at best. Patient continues to have shortness of breath, intermittent episodes of cough. He has no fever, his vital signs are relatively stable. During my evaluation, patient was constantly coughing. CBC is relatively normal electrolytes are normal BUN is 52 creatinine 1.45. LDH is elevated at 1586. Venous Doppler yesterday was negative. Chest x-ray on admission showed consolidation at the right lung base. I also suspect some consolidation at the left base/retrocardiac area. Progress note dated 06/25/2020. Currently, the patient was on BiPAP and on percent. Earlier today, he desaturated, and the nurses had a hard time getting his saturations back up. We did do a blood gas on the patient. PO2 was 63, pCO2 was 33, pH was 7.44. That was on 100% on the BiPAP. White count 14.8, hemoglobin hematocrit and platelet count all normal. Sodium 136, potassium 4.9, chlorides 107, CO2 20, anion gap 9, BUN 45, creatinine 1.28. Chest x-ray today showed diffuse bilateral patchy infiltrates which are stable. Yesterday, he was on high flow nasal O2 at 15 L/m. Progress note dated 06/26/2020. 70-year-old male, currently on BiPAP, at 16/6 and 80%. His saturations were good, so the FiO2 was dropped from 80% down to 60%. The patient appears to be d oing reasonably well, although he did become somewhat tachypnea today when he was being evaluated here. Saturations are 90% on the 60% FiO2. Temperature is 98.1, and blood pressure 173/104. White count 14.9, and hemoglobin, hematocrit, and platelet count are all normal. Sodium 135, potassium 5.2, chlorides 106, CO2 18, anion gap 11, BUN 38, creatinine 1.23. Chest x-ray from June 25, shows bilateral patchy infiltrates. The patient is seen today 06/27/2020 in follow-up on the regular medical floor. He is currently resting fairly comfortably in bed. He is maintaining O2 saturation in the 90s on BiPAP 16/6 and 60% FiO2. 0.9 normal saline at 50 MLS per hour. Chest x-ray continues to show patchy bilateral infiltrates compatible with superimposed interstitial pneumonia. White count 8.3. Hemoglobin 13.4. Sodium 139. Potassium 5.6. Creatinine 1.13. He is continued on dexamethasone, Xarelto, vitamin supplements. The patient is seen today 06/28/2020 follow-up on the selective care unit. He is currently sitting up in bed. Remains on BiPAP 16/6 and 100% FiO2 maintaining O2 saturation the high 80s low 90s. He is 0.9 normal saline at 50 MLS per hour. He is now on Lovenox, dexamethasone, vitamin supplements. PICC line placed today. The patient is seen today 06/29/2020 follow-up on the selective care unit. He remains on BiPAP 16/6 and 100% FiO2 to maintain O2 saturations in the low 90s. He is afebrile. Currently being nourished with TPN via PICC line. 0.9 normal saline at 50 ML's per hour. Blood cultures reveal no growth. Sodium 140. Potassium 5.1. Creatinine 1.18. Glucose 125. He remains on dexamethasone, Lovenox, vitamin supplements. The patient is seen today 06/30/2020 follow-up on the selective care unit. He is currently resting fairly comfortably in bed. Remains on BiPAP 16/6 at 100% FiO2. He is being nourished with TPN and lipids via PICC line. 0.9 normal saline at 50 MLS per hour. He states he is still quite fatigued but improved today compared to yesterday. Cultures reveal no growth. D-dimer 10.2. Sodium 140. Potassium 5.2. Creatinine 0.99. LDH 1591. C-reactive protein 53.8. He remains on therapeutic Lovenox, dexamethasone, vitamin supplements. The patient is seen today 07/01/2020 in follow-up on the selective care unit. He is resting comfortably in bed. Continued on BiPAP 16/6 and 100% FiO2 to maintain O2 saturations in the high 80s low 90s. Chest x-ray continues to show scattered bilateral lung infiltrates which are stable compared to previous. Sodium 142. Potassium 4.8. Creatinine 0.95. Yesterday's d-dimer 10.23. Remains on therapeutic Lovenox at 100 mg subcu every 12 hours, Decadron, vitamin supplements. On today's evaluation of 07/02/2020 on seeing the patient for a follow-up. The patient remains on a BiPAP at a pressure of 16/6 cm of water and FiO2 of 80%. The patient is also receiving TPN for nutritional support. Therapeutic dose of Lovenox. His d-dimer was quite elevated at 10.2, normal renal function, normal electrolytes, CRP was elevated at 53 with an LDH level of 1591. Most recent chest x-ray from 07/01/2030 showing peripherally located infiltrates bilaterally. The patient is able to generate tidal volume of around 370 on the BiPAP machine. His extremities around 28. He is very weak. He cannot tolerate being off the BiPAP as the patient immediately desaturates even was taken pills or sips of water. He remains on TPN for nutritional support. His symptoms of his blood work today, he has white cell count of 9.8 with a hemoglobin of 12, sodium is 139 and a creatinine of 0.9. His current pulse ox on the percent on above-mentioned BiPAP setting with an FiO2 of 80%.Inflammatory markers are still elevated. D-dimer is at 5 and the patient also has an LDH level of 1009 with a CRP of 143.The chest x-ray from yesterday was showing worsening in the bilateral lower lobe pulmonary infiltrates especially in the right lower lobe. 07/03/2020 the patient remains on BiPAP at a pressure of 16/6 with an FiO2 of 80% and this is essentially the same setting as yesterday. His current vitals show a pulse ox of 94% on above-mentioned ventilator setting. He is afebrile. Breathing is nonlabored. He is still on TPN for nutritional support. His chest x-ray from 07/01/2020 showed peripheral pulmonary infiltrates consistent with Coumadin related pneumonia. No repeat x-rays since then. The patient remains considerably weak. His blood work from today showing no major electrolyte abnormalities. His LDH level was dropping yesterday down to 1009. He is still on Decadron 6 mg IV every 24 hours. He is also on Lovenox 45 mg subcu every 12 hours. On the BiPAP machine, degenerative tidal volumes around 400. 06/03/2020 this morning the patient is off the BiPAP and the patient is currently on a high flow oxygen 60 L with an FiO2 of 86%. The patient is also using 100% nonrebreather facemask. His current pulse ox is around 91%. He has developed skin breaks and ulceration from his BiPAP mask and is currently off the BiPAP. He is resting comfortably in bed. He is still on Lovenox 45 mg subcu every 12 hours. There is on steroids and the patient is receiving De cadron 6 mg IV every 24 hours. The patient is also on TPN for nutritional support. LDH level is at 893 which is lower than the CRP level is down to 50. He is quite weak and debilitated. His white cell count of 6.8 with a hemoglobin of 12.3. No fever. No other new complaints otherwise for now. Most recent d- dimer was at 5 from 07/02/2020. 07/05/2020, the patient remains on BiPAP. The patient was on high flow oxygen yesterday and desaturated and he decompensated and he was switched to a BiPAP at a pressure of 16/6 with an FiO2 of 80%. This occurred when the patient on was trying to have some breakfast earlier this morning. He was on high flow oxygen. He dropped his oxygen saturations significantly and he was very slow in recovery. At that point, he was switched to a BiPAP. His current pulse ox is 90%. He is quite lethargic and somnolent. He is unable to eat and he has TPN for nutritional support. He continues to be on Decadron 6 mg IV every 24 hours. He is also on Lovenox 45 mg subcutaneously every 12 hours. On his blood work, he had a d-dimer of 6.49 which is slightly higher than the white cell count is at 8.6 with a hemoglobin of 12.8. TPN is current to being administered for nutritional support. No other significant events , otherwise his night was uneventful.. The PICC line is in the left upper extremity. The patient also has a Kwan catheter in place. Each in relating a tidal volume of 550 and his respiratory rate is currently in the mid 30s. He seems to be quite comfortable. He is however lethargic. 07/06/2020, the patient is on a BiPAP at a pressure of 16/6 with an FiO2 of 100%. Pulse ox is currently at around 88%. He was having some oxygen desaturations and the patient was brought up to 100% on her BiPAP FiO2. The patient's subsequent reading in a pulse ox in the order of 91%. Remains on TPN for nutritional support. Remains on Decadron 6 mg IV every 24 hours. Remains on Lovenox 45 mg subcu every 12 hours. Blood work shows a d-dimer of 5.64. No electrolyte abnormalities. Condition is essentially unchanged and probably the same as yesterday. Still on Levemir insulin 10 units along with a sliding scale coverage. Blood sugars are adequate for now. He does have a PICC line in left upper extremity. He has a Kwan catheter in place. At around 10:00 this morning, the patient was trialed on the percent nonrebreather with a high flow oxygen at 60 L with an FiO2 of 90%. He desaturated to the low 60s and he was placed accordingly back on BiPAP. 07/07/2020 the patient is a same BiPAP setting which is 60/6 with an FiO2 of 95%. Earlier this morning she was trialed on high flow oxygen with 60 L and FiO2 of 90% and he decompensated and he became profoundly hypoxic and he had to be placed back on the BiPAP. His current pulse ox in the low 90s. He remains on IV Decadron 6 and the rescue 24 hours. He remains on Lovenox 45 mg subcu every 12 hours. Chest x-ray from today is showing stable bilateral interstitial pulmonary infiltrates with some worsening consolidation of the left lower lobe. Meanwhile, the patient is still receiving TPN for nutritional support. He is unable to take oral intake because of his extreme BiPAP dependence. D-dimer is at 4.06 and the patient is on Lovenox 45 mg subcu every 12 hours. He has also LDH level of 962, CRP level is at 8.3, electrolytes are all within normal limits. Unfortunately, he is still doing poorly and is not showing any signs of recovery. He remains on Levemir insulin 10 units daily along with a sliding- scale coverage. He has a Kwna catheter in place. Respiratory rate is in the mid 30s. He is quite lethargic. 2020, the patient continues to be on a BiPAP at a pressure of 16/6 with an FiO2 of 95%. Awake and alert. Slightly tachypneic. Pulse ox is 89% on the above-mentioned BiPAP setting. Minute ventilation as 40 L as we were seeing the patient and his minute ventilation with a. Otherwise his aspirate has been in the high 20s low 30 range. Whenever he sleeps, his respiratory rate goes down. He wants to stay on the BiPAP and he doesn't want to transition to the high flow oxygen today. Repeat chest x-ray was done and the findings are essentially stable with diffuse bilateral pulmonary infiltrates. No evidence of any pneumothorax. No interval progression or worsening his chest x-ray findings. Meanwhile, his blood work shows no major abnormalities. Blood sugars are not elevated. The patient remains on TPN for nutrition support and the patient remains on Decadron IV every 24 hours on Lovenox 45 mg subcu every 12 hours. D- dimer level is at 4.06. Patient was reevaluated today on 07/09/2020, remains on high flow oxygen using airvo and non-rebreather mask. Patient is on 94% FiO2 and 60 L flow per minute. Patient is about the same, not getting any better not getting any worse. He is noted to be slightly tachypneic. Has BiPAP at bedside, but not using it at present. Basic metabolic profile today is normal., Last LDH was trending down to 962 and C-reactive protein 8.3 Patient was reevaluated today on 07/10/2020, remains on high flow oxygen using Airvo and nonrebreather mask. O2 saturation remains marginal in the low 90s and high 80s patient denies being short of breath. He has intermittent cough. His d-dimer is 5.4 to today. Not significantly changed over the last 1 week. Basic metabolic profile is normal renal profile is normal. His last C-reactive protein was 8.3 and his LDH was 962 from 2 days ago. Chest x-ray from 07/08 continues to show persistent bilateral multifocal and comfortable in particular opacities consistent with COVID-19 infection. Patient was reevaluated today on 07/11/2020, remains on high flow oxygen, patient is on nonrebreather plus airvo 90% FiO2 and 60 L flow, O2 saturation remains marginal in the mid to high 80s. Patient in mild distress, but overall he thinks he is getting a bit better. Tried today to change position on the patient and see if his oxygenation improves, did not seem to make much of a difference, and the patient could not lay prone. He had even some difficulty laying on the right side. Remained generally weak, not making significant progress since admission. His CBC looks relatively normal his d-dimer is 5 renal profile is normal. Electrolytes are normal. Last chest x-ray from 2 days ago was consistent with COVID-19 pneumonia. On 07/12/2020 patient seen in follow-up on medical surgical floor, this morning his dyspnea and hypoxia have worsened, he is displaying decreasing oxygen saturations and increasing work of breathing. Patient has been on BiPAP support with pressures of 12 and 6 and 200%, and despite that patient is unable to maintain O2 saturations above 80-82%, he is quite tachypneic. Patient remains on multivitamins, steroids, and Lovenox 45 mg twice daily. He is status post Toci on 07/06/2020. He is receiving nutritional support in the form of TPN, his been unable to take in much by mouth related to his dyspnea, hypoxia, and dependence on high flow oxygen and BiPAP. Stat chest x-ray was obtained showing increasing confluence of airspace disease, and patient's steroids have been switched to Solu-Medrol 60 mg every 6 hours. Today's labs have been reviewed On 07/13/2020 patient seen in follow-up in the intensive care unit, he was trace to the ICU yesterday in view of worsening hypoxia and dyspnea, he is on BiPAP support pressures of 16/8 and FiO2 of 100%, and his pulse ox is 92%, he seems to be comfortable on those settings, breathing comfortably, appears to be in no respiratory distress. He does not tolerate being off the BiPAP and is very much dependent on BiPAP at this time, unable to take any oral meds or oral nutrition, PICC line was inserted in patient continues on TPN for nutritional support at a rate of 85 ML per hour, and lipids on the Thursday schedule, followed by registered dietitian. No other vasoactive drips, no other maintenance drips, hemodynamically he remains stable, he is in sinus mechanism, today's chest x-ray has been reviewed showing improvement in aeration, and patient is currently on IV steroids with Solu-Medrol 60 mg every 6 hours, and he remains on Lovenox 45 mg twice daily, all of his oral medications have been discontinued, and his Lopressor has been switched over to Lopressor IV 20 mg every 6 hours. No complaints of chest discomfort, no cough, lung sounds reveal diffuse crackles. He appears be fairly comfortable. Today's labs have been reviewed showing white blood cell count of 9.0, hemoglobin of 13.9, his d-dimer is improving and is down to 1.84, sodium is 135, the rest of the electrolytes were within normal limits, and BUN is up slightly, at 42, creatinine remains in the normal range of 0.71. LDH is 1492 uptrended a bit from previous value, and CRP is 0.8 On 07/14/2020 patient is seen in follow-up in intensive care unit, she remained BiPAP dependent at this time, BiPAP pressures of 16/8, and FiO2 100%, however he tolerates BiPAP support quite well, no agitation, no attempts to remove the mass, he is quite compliant, pulse ox on those settings is ranging from 93-96%, hemodynamically he is stable, has not had any vasopressor support, he is in sinus mechanism with a rate of 67, he is on 0.9 normal saline at a rate of 29 per hour, TPN is infusing at 85 MLS per hour, patient has not been able to come off the BiPAP support long enough to sustain his oral nutrition. He feels thirsty, and his been coming off the BiPAP mask only for oral care and sips of water. He is awake, he is alert oriented 3, denies acute distress, today's chest x-ray shows mixed interstitial and airspace disease within the lungs similar to the prior exam, no major change. Today's labs have been reviewed, doing a d-dimer slightly trending down, down to 1.25, LDH is 1305, down from yesterday, his CRP is normal at 0.7. Blood cultures have shown no growth. He remains on prophylactic dose Lovenox 40 mg daily, remains on Solu-Medrol 60 mg every 6 hours, he is on morphine as needed 2-4 mg every 4 hours for breathlessness and anxiety, and that has been helping him cope with the BiPAP support. No chest discomfort, no nausea vomiting or diarrhea no abdominal pain. On 07/16/2020 patient seen in follow-up in the intensive care unit, patient was able to lift the BiPAP support, and he is currently on Airvo at 60 L and FiO2 of 90% in addition to 100% nonrebreather mask, tolerating it well so far, he is awake and alert, oriented 3, he is able to taken some oral nutrition, no increased dyspnea, he is maintaining O2 saturations at around 90% on the above mentioned oxygen set up, he is afebrile, he is hemodynamically stable, not in any vasopressor support, he is on 0.9 normal saline at a rate of 20 ML per hour, his TPN has been discontinued. Today's chest x-ray shows bilateral interstitial and airspace disease similar in appearance to previous chest x-ray from yesterday. Today's blood work has been reviewed, showing orbital, 10.2, hemoglobin is 12.9, serum sodium is 135, the rest of electrolytes were unremarkable, BUN is 48, creatinine 0.74, his AST is 96, ALT is 182, worsened since yesterday, total bilirubin is 1.4, his LDH is CRP were not repeated today, but or improving on yesterday's labs. All blood cultures have been negative thus far. He remains on daily dose of Lovenox 40 mg daily, IV steroids 60 mg every 6 hours, and sliding scale insulin in addition to Levemir. Vital signs have been stable, no fever or chills, no nausea vomiting or diarrhea. On 07/17/2020 patient seen in follow-up in intensive care unit, she remains on Airvo at 60 L and FiO2 of 90% in addition to 100% nonrebreather mask and he is maintaining O2 saturations between 86-92%, he is breathing comfortably, no increased dyspnea or cough, vital signs have been stable, he has been afebrile. He is on 0.9 normal seen at 20 ML per hour, no other drips. Tolerating oral intake, TPN has been discontinued, today's labs have been reviewed showing white blood cell count 8.8, hemoglobin of 12.5, d-dimer is 1.48, sodium is 134, there is the rest of the electrolytes are unremarkable, BUN is 49 creatinine 0.83, LDH is 1279, CK is 39, CRP 0.7, laboratory markers are relatively stable. His cultures have been reviewed, all blood cultures have remained negative. He remains on Lovenox 40 mg daily, and IV Solu-Medrol at 60 mg every 6 hours On 07/18/2020 patient seen in follow-up in the intensive care unit, he remains on Airvo at 60 L and FiO2 of 90% in addition to 100% nonrebreather mask is pulse ox is 93-94%, his been off BiPAP support for last 48 hours, tolerating it well so far, tolerating oral intake, TPN has been discontinued, hemodynamically stable, he is afebrile. He did desaturate become short of breath with any exertion, still has a cough. No new chest x-ray today, yesterday chest x-ray showed bilateral interstitial and alveolar infiltrates. Continues on IV Solu- Medrol 60 mg every 6 hours, and prophylactic dose Lovenox. No acute events overnight. Today's labs have been reviewed, white blood cell count is 7.5, he moglobin is 13.4, yesterday's d-dimer was 1.48, serum sodium is 134, potassium is 5.2, BUN is 50 creatinine 0.86, LDH is CRP were improving on yesterday's labs. On 07/19/2020 patient seen in follow-up in the intensive care unit, he remains on Airvo at 60 L and FiO2 of 90%, his pulse ox is 88-93%, not using additional nonrebreather mask. He is resting comfortably in bed, today's chest x-ray shows bilateral airspace disease, and prominent interstitium, no evident pneumothorax or pleural effusion. Today's labs have been reviewed, white blood cell count is 8.0, hemoglobin is 14.2, platelet count is 87, today's d-dimer is 1.75, sodium is 135, potassium is 5.3, the rest of electrolytes were within normal limits, BUN is 53 creatinine 0.86, his LDH is 1438, CRP 0.6. Blood cultures are all negative. He remains on IV Solu-Medrol 60 mg every 6 hours, he is on prophylactic dose Lovenox. 0.9 normal seen at a rate of 20 ML per hour, no other drips, no vasopressor support. He is tolerating oral intake, no nausea vomiting or diarrhea. On 07/20/2000 patient seen in follow-up in intensive care unit, he is on Airvo at 60 L and FiO2 of 90%, his O2 saturation right now is around 90%, he easily desaturates with any activity, at times has to use the nonrebreather mask periods increased dyspnea. No IV fluids, today's chest x-ray shows bilateral airspace disease, prominence of interstitium again noted. Today's labs have been noted, his white blood count, 7.9, hemoglobin is 13.4, lymphocyte count is 0.3, his last d-dimer yesterday was 1.75, sodium is 135, the rest of his electrolytes were unremarkable, his BUN is 49, creatinine is 0.81. Patient continues on IV Solu-Medrol 60 mg every 6 hours, he is on Lovenox 40 mg daily, he is on 0.9 normal saline at a rate of 20 ML per hour, no other drips, he is tolerating oral intake, no nausea vomiting or diarrhea. On 07/21/2020 patient seen in follow-up in intensive care unit, he is awake and alert, oriented 3, he currently remains on Airvo at 60 L and FiO2 of 90%, his pulse ox is around 92%, no IVs infusing at this time, his breathing has been stable, he is dyspneic with conversation or any exertion, overall he has become significantly weak, he has not been up out of bed, but dyspnea has not worsened, patient has not required BiPAP support, he is tolerating oral intake, no nausea vomiting or diarrhea, actually complaining of constipation, he has required stool softeners, and was able to have a bowel movement last night. Today's chest x-ray has been reviewed showing interstitial and airspace disease which is similar in appearance compared to previous chest x-ray. Clinically has remained stable. Continues on Solu-Medrol 60 mg every 6 hours, he is on prophylactic dose Lovenox, some of his home oral meds have been restarted as the patient is tolerating oral intake. On 07/22/2020 patient seen in follow-up in intensive care unit, he is awake and alert, appears to be in no acute distress, his breathing has been stable, he remains on Airvo at 55 L and FiO2 of 79%, his pulse ox is around 89-91%. Patient is afebrile. Hemodynamically his been stable, he is in sinus mechanism, with a rate of 68, no acute events overnight, he is generally weak, he states he was unable to get up in a chair yesterday, requires extensive assistance, lung sounds are stable, with bibasilar crackles, no major cough, no worsening dyspnea. Patient remains on prophylactic dose Lovenox, he is on Solu-Medrol 60 every 6 hours. His LDH is 1324, CRP is less than 0.5, today's d-dimer is 1.2. On 07/23/2020 patient seen in follow-up on medical surgical floor, he remains on Airvo, currently at 55 L and FiO2 of 85%. He is breathing comfortably, his pulse ox is 86-90%, appears to be in no acute distress, overall he seems to be improving, and clinically he pursed to be stronger, he was working with physical therapy, he was up in the chair, however a lift had to be used to lift him into the chair. He was unable to stand, no fever or chills overnight. Chest x-ray today shows unchanged moderate interstitial opacities, worse peripherally. Today's labs show white blood cell count of 8.1, hemoglobin is 14, later, 61, PTT was 21.9, fibrinogen was 226, sodium is 133, potassium is 4.8, chloride is 100, CO2 31, BUN is 44, creatinine 0.74, he was on prophylactic dose of Lovenox which is on hold right now, he is on prednisone 40 mg daily. Objective - Vital Signs Vital signs: Vital Signs Temp 98.3 F 07/24/20 10:00 Pulse 93 07/24/20 10:00 Resp 18 07/24/20 10:00 BP 102/63 07/24/20 10:00 Pulse Ox 90 L 07/24/20 11:48 Intake & Output 07/23/20 07/24/20 07/24/20 18:59 06:59 18:59 Intake Total 20 Output Total 200 450 Balance -180 -450 Weight 94.3 kg Intake: IV 20 .9 KVO 20 Output: Urine 200 450 Other: Voiding Method Indwelling Catheter # Voids 1 - Exam GENERAL EXAM: Alert, very pleasant, 70-year-old white male, on Airvo at 55 L and FiO2 of 85%, maintaining O2 saturations around 92% HEAD: Normocephalic/atraumatic. EYES: Normal reaction of pupils, equal size. Conjunctiva pink, sclera white. NOSE: Clear with pink turbinates. THROAT: No erythema or exudates. NECK: No masses, no JVD, no thyroid enlargement, no adenopathy. CHEST: No chest wall deformity. Symmetrical expansion. LUNGS: Equal air entry with diminished breath sounds bilaterally, with bilateral base crackles CVS: Regular rate and rhythm, normal S1 and S2, no gallops, no murmurs, no rubs ABDOMEN: Soft, nontender. No hepatosplenomegaly, normal bowel sounds, no guarding or rigidity. EXTREMITIES: No clubbing, no edema, no cyanosis, 2+ pulses and upper and lower extremities. MUSCULOSKELETAL: Muscle strength and tone normal. SPINE: No scoliosis or deformity SKIN: No rashes CENTRAL NERVOUS SYSTEM: Alert and oriented -3. No focal deficits, tone is normal in all 4 extremities. PSYCHIATRIC: Alert and oriented -3. Appropriate affect. Intact judgment and insight. - Labs CBC & Chem 7: 07/24/20 04:01 07/24/20 04:01 Labs: Abnormal Lab Results - Last 24 Hours (Table) 07/23/20 07/23/20 07/24/20 Range/Units 16:59 20:07 04:01 Plt Count (150-450) k/uL Lymphocytes # (1.0-4.8) k/uL APTT (22.0-30.0) sec Sodium 133 L (137-145) mmol/L Carbon Dioxide 31 H (22-30) mmol/L BUN 44 H (9-20) mg/dL POC Glucose (mg/dL) 167 H 151 H (75-99) mg/dL Calcium 8.3 L (8.4-10.2) mg/dL 07/24/20 07/24/20 07/24/20 Range/Units 04:01 09:20 11:50 Plt Count 61 L (150-450) k/uL Lymphocytes # 0.4 L (1.0-4.8) k/uL APTT 21.9 L (22.0-30.0) sec Sodium (137-145) mmol/L Carbon Dioxide (22-30) mmol/L BUN (9-20) mg/dL POC Glucose (mg/dL) 153 H (75-99) mg/dL Calcium (8.4-10.2) mg/dL Assessment and Plan Plan: Assessment: #1. Acute hypoxemic respiratory failure secondary to COVID-19 pneumonia. Outside the window for Remdesivir, that is post Toci 800 mg on 07/06/2020 for worsening hypoxic respiratory failure, patient remains very much BiPAP dependent and has not tolerated transitioning to high flow oxygen very well, he required transfer to the intensive care unit today on 07/12/2020 and current BiPAP settings of 14/8 and FiO2 of 100%. Today on 07/19/2020 patient off BiPAP support and is currently on irritable at 55 L and FiO2 of 79% #2. Increased inflammatory markers related to the above, improving #3. Increased d-dimer, lower extremity Dopplers showed no evidence of DVT, patient remains on Lovenox 45 mg twice daily and a d-dimer is improving #4. History of atrial fibrillation, paroxysmal and patient is not on any chronic anticoagulation #5. Coronary artery disease with previous stent placement #6. GERD/reflux #7. Hypertension #8. Hyperlipidemia #9. History of rheumatic fever #10. History of gout #11. Acute kidney injury recovered #12. Decreased oral intake and inability to sustain oral intake related to BiPAP device, and dependence on noninvasive ventilatory support, patient is currently on TPN for nutritional support. TPN has been discontinued, patient is tolerating oral diet today, he is off BiPAP support on 07/16/2020 #13. Thrombocytopenia, anticoagulation has been placed on hold, rule out possibility of HIT Plan: Wean FiO2 to keep O2 sats ration is at or above 85%, currently on Airvo at 55 L and FiO2 of 82% Has not required BiPAP support Today's labs have been noted, Lovenox is placed on hold HIT antibiotics are pending Continue current dose prednisone Encourage the patient to work on incentive spirometer Encourage oral intake, We'll continue to follow his clinical course I performed a history & physical examination of the patient and discussed their management with my nurse practitioner, Constance El. I reviewed the nurse practitioner's note and agree with the documented findings and plan of care. Lung sounds are positive for bibasilar crackles. The findings and the impression was discussed with the patient. I attest to the documentation by the nurse practitioner. Time with Patient: Less than 30
--- NOTE | 2020-07-24 15:07 | P.PN ---
Subjective Progress Note Date: 07/24/20 This is 70-year-old gentleman with past medical history of hypertension, and gastroesophageal reflux disease, CAD, NH, chronic back pain with history of laminectomy and multiple other medical issues presented to the ER with history of fevers ,worsening shortness of breath. Patient had seen his PCP last week on Thursday the and was recommended to go for his covid test. Patient apparently never went for his test. Yesterday completed a tele visit with his PCP, Dr. Encarnacion, referred to the ER. Patient tested positive for Covid infection while in the ER. On admission patient hypoxic with O2 sat of 80% on room air, required nonrebreather to maintain O2 sats in the 90s to 100%. Febrile on admission with temperature 99.9, normal WBC. D-dimer 2.41, sodium 132, BUN 52, creatinine 2.05, ferritin 1556.7 total bili elevated on admission now within normal limits, mildly elevated LFTs, LDH 2411currently 2018, CRP 158.4. Given patient's renal function and respiratory status unable to proceed with CTA of chest or VQ to rule out PE, currently on heparin drip. Chest x-ray reported partially consolidative opacity in the right lung base consistent with acute pneumonic process. Telemetry sinus rhythm with fusion complexes and PACs with left axis deviation. Denies chest pain, palpitations. 06/25/2020 during the night and again this morning patient removing his oxygen, desatting into the high 40s, turning blue, return to 15 L high flow in addition to nonrebreather, O2 sats initially in the high 80s. As the morning progressed, only maintaining O2 sats in the low 80s and transitioned to BiPAP mask. Chest x-ray reported diffuse bilateral patchy infiltrates stable. Denies chest pain, palpitations. Xanax administered for anxiety. Continue to develop more agitation attempting deplorable off mask. manager corporate strategy placed in room. Eventually patient required IV push Haldol. Patient now maintaining O2 sat of 94% on 100% BiPAP. Afebrile, WBC 14.8. Creatinine improving, 1.28. 06/26/2020 requiring 100% BiPAP to maintain O2 sats in the low 90s. T-max 102.6. WBC 14.9. Telemetry reporting Sinus Tachycardia with heart rates up into the 120s. Echo reported LV function 40-45% . Potassium 5.2, Renal function improving. Blood sugars controlled. Anxious, agitated, combative at times. Sitter remains at bedside. Receiving when necessary Haldol. Staff reports patient was asking for the bar mayandel, unclear if history of EtOH abuse, with questionable withdrawal. Psychiatry consult in place with recommendations pending. 06/27/2020 bread icer hours, significant agitation despite adjustment in med regimen. Received Ativan 1 mg IV push. Agitation lessened. Staff reports carmen ent was choking on water. Spiking fevers, T-max 100.5, labs pending. Taking O2 sats of 90 on 60% BiPAP. 06/28/2020 rough night with increased agitation and confusion despite Prolixin and Zyprexa. Reevaluated by psychiatry this morning with medication changes noted and appreciated. Unable to wean from 100% BiPAP, maintaining O2 sats of mid 80s to low 90s. Speech therapy unable to conduct swallow evaluation as patient unable to tolerate being off of BiPAP. Poor oral intake, renal function worsening. Sitter remains at bedside. Afebrile. 06/29/2020 100% BiPAP, maintaining O2 sats in the low 90s. Had a better night with less agitation, received Prolixin. Less confused this morning. Asking for ice chip. Complains of chronic back pain. Discussed CODE STATUS and patient wishes to remain a full code. Denies any chest pain, palpitations. BUN 43, creatinine 1.18. Received PICC line with TPN initiated yesterday. Blood sugars controlled. 07/02/2020 remains on 80% BiPAP, maintaining O2 sats in the high 80s. Minimal reserve-Unable to tolerate being off BiPAP mask . Receiving TPN via PICC line. Reporting that he is hungry.Calm, maintained on Zyprexa, prn Prolixin as per p sychiatry. Did not require Prolixin over the weekend. Sensorium significantly improved. Afebrile. D-dimer, LDH decreased, CRP increased. 07/03/2020 continue on 80% BiPAP, calm, maintaining O2 sats in the mid 90s. Hungry, asking for food, receiving TPN. Also asking for a writing board to co mmunicate easier. 07/04/2020 significant improvement in sensorium .weaned off of BiPAP currently maintaining O2 sats in the high 80s to low 90s on both high flow nasal cannula/nonrebreather. Productive cough. Continues on TPN with bites of food intermittently. Blood sugars ranging from 130 to 225. Continue on Covid cocktail including Decadron. Denies chest pain, palpitations. 07/05/2020 Staff reports patient desatted down into the 70s this morning within minutes of taken off mask (patient had been on 60L high flow nasal cannula and nonrebreather )to have a few bites of oatmeal. Slow recovery and 80% BiPAP mask reapplied. Receiving TPN via PICC line as well. Continues on Covid cocktail. Blood sugars better controlled on low-dose Levemir insulin. T-max 100.5, WBC 8.6. 07/06/2020 Desatted to the low 60s on high flow nasal cannula with nonrebreather. BiPAP 100% maintaining O2 sats of 89%. Maintained on TPN . Continues on Covid cocktail. Inflammatory markers remain elevated. Afebrile, T-max 99. Blood sugars controlled. 07/09/2020 Airvo/NRB, maintaining O2 sats in the high 80s. Afebrile. Blood sugars 160s to 190s. 07/10/2020 currently on high flow nasal cannula 60% and nonrebreather maintaining O2 sats 86-80%. Reports mild anxiety this morning. Afebrile. Labs pending. 07/16/2020 weaned off BiPAP today, currently maintained on 90% FiO2 Airvo + NRB maintaining O2 sats in the high 80s to low 90s.Chest x-ray reports bilateral interstitial and airspace disease similar to prior exam. Hemoglobin 12.9, Platelets 105. TPN discontinued, consistent carb diet initiated. Afebrile, normal WBC, blood cultures reporting no growth. T bili, AST, ALT worsened. Albumin 2.5. Continues on bronchodilators, IV steroids with blood sugars better controlled this morning. 07/17/2020 Maintained on FiO2 85% with O2 sats of 89-91%. Chest x-ray reporting stable bilateral interstitial and alveolar infiltrates. Sitting up in chair,teary-eyed over finally getting out of bed. Consuming 50% of breakfast with no nausea vomiting or diarrhea. Blood sugars controlled. Passing flatus. Mild delirium reported by staff, will re-initiate Zyprexa,as previously recommended per psychiatry. Afebrile, WBC 8.8. Hemoglobin 12.5, platelets 103. D-dimer was 0.48, sodium 134, BUN 29, creatinine 0.83. ALT 202. Ferritin decreased to 1138.4, CK 39, CRP 0.7. 07/18/2020 maintained on FiO2 90% with O2 sats 93-94%. Afebrile, normal WBC. Hemoglobin 13.4, platelets 94. Blood sugars controlled. Sodium 134., Potassium 5.2. 07/20/2020 maintained on 91% FiO2/airvo maintaining O2 sats of 90-94%. Chest x- ray pending. Telemetry sinus rhythm to sinus bradycardia with PACs. Tolerating diet with no nausea vomiting or diarrhea. Blood sugars controlled. Complaining of constipation and having to use bedpan, but severely weak, unable to stand even with a 2 person assist, requires a Shira lift to place in chair. Reinforced patient's need for subacute rehab at discharge. afebrile, normal WBC. Sensorium significantly improved, mild fluctuating delirium. 07/23/2020 FiO2 78% airvo, maintaining O2 sats mid 80s to 90%. Chest x-ray reporting unchanged moderate interstitial opacities, worse peripherally. Afebrile, normal WBC. Sodium remains at 133. D-dimer/ LDH increased. CRP 0.6.Platelets 69.Staff reporting good diet intake, blood sugars controlled. Last bowel movement yesterday, required a Fleet's enema. DVT prophylaxis with Lovenox Significant weakness persists, requiring shira lift to chair. Discussed subacute rehab again at bedside. 07/24/2020 AIRVO FiO2 85%, maintaining O2 sats 86-90%. Chest x-ray reporting unchanged, moderate interstitial opacities, worse peripherally. Positive bowel movements. During the night patient had a dark stool, nursing reported possibly blood-tinged. Patient denied stated he was pushing hard, no rectal pain. Hemoglobin remained stable , 14, platelets down to 61. Anticoagulation placed on hold, hematology consulted. Denies chest pain, palpitations. Objective - Vital Signs Vital signs: Vital Signs Temp 97.6 F 07/24/20 05:54 Pulse 95 07/24/20 05:54 Resp 20 05/04/21 03:03 BP 129/74 07/24/20 05:54 Pulse Ox 89 L 07/24/20 06:15 Intake & Output 07/23/20 07/24/20 07/24/20 18:59 06:59 18:59 Intake Total 20 Output Total 200 450 Balance -180 -450 Weight 94.3 kg Intake: IV 20 .9 KVO 20 Output: Urine 200 450 Other: Voiding Method Indwelling Catheter # Voids 1 - Exam GENERAL: Sitting up in bed, no acute distress, NAD,extremely weak CHEST EXAMINATION: Symmetrical expansion. Diminished, fine bibasilar crackles CARDIAC: Normal S1, S2 with no gallops. No murmurs ABDOMEN: Soft. Bowel sounds normal. No guarding. Positive bowel sounds Extremities: no edema. No clubbing or cyanosis. No calf pain. Neurologically: Cranial nerves II through XII grossly intact , no focal deficits, Moving all extremities. Skin: Warm and dry, no rashes. - Labs CBC & Chem 7: 07/24/20 04:01 07/24/20 04:01 Labs: Abnormal Lab Results - Last 24 Hours (Table) 07/23/20 07/23/20 07/23/20 Range/Units 11:39 16:59 20:07 Plt Count (150-450) k/uL Lymphocytes # (1.0-4.8) k/uL Sodium (137-145) mmol/L Carbon Dioxide (22-30) mmol/L BUN (9-20) mg/dL POC Glucose (mg/dL) 104 H 167 H 151 H (75-99) mg/dL Calcium (8.4-10.2) mg/dL 07/24/20 07/24/20 Range/Units 04:01 04:01 Plt Count 61 L (150-450) k/uL Lymphocytes # 0.4 L (1.0-4.8) k/uL Sodium 133 L (137-145) mmol/L Carbon Dioxide 31 H (22-30) mmol/L BUN 44 H (9-20) mg/dL POC Glucose (mg/dL) (75-99) mg/dL Calcium 8.3 L (8.4-10.2) mg/dL Assessment and Plan Assessment: Sepsis secondary to Acute Covid -19 pneumonia, status post TOCI Acute hypoxic respiratory failure secondary to the above, Acute delirium, acute metabolic encephalopathy secondary to the above, possibly acute hypoxic encephalopathy, medication induced, steroids, benzos, opiates. Possible steroid psychosis. Significantly improved. Acute renal failure secondary to the above, improving Hyperglycemia, steroid-induced Thrombocytopenia Gastroesophageal reflux disease Chronic paroxysmal atrial fibrillation Chronic systolic CHF, EF 35-40% Coronary artery disease with history of NH,stent placement Former nicotine dependence Hypertension Mild to moderate protein calorie malnutrition , status post TPN Plan: Continue on current medication regime ,monitoring and symptomatic treatment.anticoagulation on hold, hematology consulted, hit antibodies pending.Titration of FiO2 as per pulmonary. Aggressive pulmonary toileting . Reinforced subacute rehab at discharge-patient continues to have significant weakness, continues requiring shira lift to chair. PT/OT. Prognosis guarded given multiple complex medical issues. The impression and plan of care has been dictated as directed. : I performed a history and examination of this patient, discussed the same with the dictator. I agree with the dictator's note ,documented as a scribe. Any additional findings or plans will be noted.
[2020-07-24] MEDS ORDERED: PANTOPRAZOLE 40 MG/10 ML VIAL IVP ONE (15:48)
[2020-07-24 15:53] LABS: Glucose,Whole Blood 128 mg/dL (75-99)
[2020-07-24 16:32] LABS: Glucose,Whole Blood 119 mg/dL (75-99)
--- NOTE | 2020-07-24 16:51 | P.EN ---
A- team: Indication: Bright red blood per rectum Patient seen and examined at bedside. Patient initially admitted on 06/22 have had a prolonged hospital stay secondary to Covid. Nursing reported that patient needed to have a bowel movement and then they noted bright red blood per rectum. He continued to have rectal pain and bleeding. Apparently he required an enema on 07/23 secondary to severe constipation. Patient does report some rectal pain. He denies any abdominal pain, nausea, or vomiting. He denies any shortness of breath, lightheadedness, or dizziness. Vital signs reviewed General: Ill-appearing, moderate distress, diaphoretic Derm: warm, dry Head: atraumatic, normocephalic, symmetric Eyes: EOMI, no lid lag, anicteric sclera Mouth: no lip lesion, mucus membranes moist Cardiovascular: S1S2 reg, no murmur, positive posterior tibial pulse bilateral, Lungs: Rhonchi bilateral, no rhonchi, no rales , + accessory muscle use Abdominal: soft, nontender to palpation, no guarding, no appreciable organomegaly bright red blood noted coming from the rectal area, appears to be coming from an external for, patient does have multiple areas of excoriation Psych: Alert, oriented, appropriate affect Assessment/Plan: Hematochezia with low platelet count - stat CBC, PT, PTT, Fibrinogen, D-dimer - 1L bolus - Protonix 80 IVP - 1 unit of platelets - repeat CBC in 6 hours COVID -19, Acute hypoxic respiratory fialure Notified: Dr. King and Constance gonzales phone Dr. Encarnacion notified via [facility]. A Total of 35 minutes of critical care time was spent on the complex care of this patient
[2020-07-24 17:19] LABS: HCT 35.4 % (39.0-53.0); HGB 11.6 gm/dL (13.0-17.5); MCH 30.3 pg (25.0-35.0); MCHC 32.7 g/dL (31.0-37.0); MCV 92.8 fL (80.0-100.0); Mean Platelet Volume 9.6; RBC 3.82 m/uL (4.30-5.90); RDW 14.8 % (11.5-15.5); WBC 5.3 k/uL (3.8-10.6)
[2020-07-24 17:26] LABS: Platelet Count 55 k/uL (150-450)
[2020-07-24 17:45] LABS: D-Dimer 2.15 mg/L FEU (<0.60); INR 1.1 (<1.2); Prothrombin Time 11.5 sec (9.0-12.0)
[2020-07-24 17:49] LABS: Partial Thromboplastin Time 21.8 sec (22.0-30.0)
[2020-07-24] MEDS: SODIUM CHLORIDE 0.9% 1,000 ML IV SCH (17:50)
--- NOTE | 2020-07-24 18:17 | P.CONS ---
History of Present Illness - Reason for Consult Consult date: 07/24/20 thrombocytopenia, covid Requesting physician: Vijay Encarnacion - Chief Complaint covid - History of Present Illness Mr. Barclay is a very pleasant 70-year-old male who has been hospitalized for 33 days with Covid hypoxia. On chart review patient was on Xarelto on admission 06/24 through 06/28. At that time he was placed on 100 mg of Lovenox 06/28 -07/02. He was changed to 45 mg lovenox 07/02-07/13, 40 mg 07/13, stopped 07/24. His platelets have progressively declining since his admission, there currently 61,000 today. Patient reports no history of blood or bleeding problems, no EtOH abuse or liver disease, nursing reports 2 bowel movements yesterday dark colored with blood clots, event note reviewed from this afternoon, patient had additional bleeding from the rectum. Coags and fibrinogen were ordered at 9 AM this morning when the patient was seen by Hematology, they were repeated after this afternoons event, platelets given, fibrinogen stable, coags stable, Hgb dropped, plt down to 55,000. CBC being repeated tonight. 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), gout, Last Myocardial Infarction Date:: 05-09-06 History of Any Multi-Drug Resistant Organisms: None Reported Past Surgical History: Back Surgery, Heart Catheterization With Stent, Hernia Repair, Orthopedic Surgery Additional Past Surgical History / Comment(s): LT INGUINAL HERNIA, LT EYE SX TO REPAIR THE BROKEN ORBIT HAS METAL IN PLACE, 2 cardiac stents, surgery for fx rt foot Past Anesthesia/Blood Transfusion Reactions: Previous Problems w/ Anesthesia Additional Past Anesthesia/Blood Transfusion Reaction / Comm: one time "was not very nice when coming out of anesthesia" Date of Last Stent Placement:: 05-09-06 Past Psychological History: No Psychological Hx Reported Smoking Status: Never smoker Past Alcohol Use History: None Reported Additional Past Alcohol Use History / Comment(s): smoked x 20 years, 1ppd quit 1998 Past Drug Use History: None Reported - Past Family History Father Family Medical History: Cancer Additional Family Medical History / Comment(s): COLON CANCER Medications and Allergies Home Medications Medication Instructions Recorded Confirmed Type Allopurinol [Zyloprim] 100 mg PO DAILY 09/09/17 06/21/20 History Metoprolol Tartrate [Lopressor] 25 mg PO BID #60 tab 09/15/17 06/21/20 Rx Rosuvastatin Calcium 5 mg PO HS 06/21/20 06/21/20 History lisinopriL [Zestril] 2.5 mg PO HS 06/21/20 06/21/20 History Gabapentin [Neurontin] 300 mg PO TID PRN 06/22/20 06/22/20 History predniSONE See Taper PO DAILY 06/22/20 06/22/20 History Allergies Allergy/AdvReac Type Severity Reaction Status Date / Time Penicillins Allergy Unknown Verified 06/21/20 21:33 Physical Exam Vitals: Vital Signs Temp Pulse Resp BP Pulse Ox 07/24/20 14:00 99.2 F 60 18 109/66 90 L 07/24/20 11:48 90 L 07/24/20 10:00 98.3 F 93 18 102/63 86 L 07/24/20 06:15 89 L 07/24/20 05:54 97.6 F 95 129/74 86 L 07/24/20 03:03 98.1 F 96 20 104/71 87 L 07/23/20 22:00 98.3 F 97 21 101/68 91 L 07/23/20 21:19 89 L 07/23/20 20:11 95 99/68 07/23/20 18:19 22 Intake and Output 07/24/20 07/24/20 07/24/20 06:59 14:59 22:59 Intake Total 125 Output Total 450 Balance -450 125 Intake: IV 125 .9 KVO 125 Output: Urine 450 Other: # Voids 1 1 - Constitutional General appearance: average body habitus, cooperative, mild distress - EENT Eyes: anicteric sclerae, EOMI ENT: hearing grossly normal, normal oropharynx - Neck Neck: no lymphadenopathy - Respiratory Respiratory: bilateral: diminished, rales - Cardiovascular Rhythm: regular Heart sounds: normal: S1, S2 Abnormal Heart Sounds: no systolic murmur, no diastolic murmur, no rub, no S3 Gallop, no S4 Gallop, no click, no other leg Peripheral Edema: bilateral: Trace - Gastrointestinal General gastrointestinal: no absent bowel sounds, no decreased bowel sounds, no distended, no hepatomegaly, no hyperactive bowel sounds, normal bowel sounds, no organomegaly, no rigid, no scaphoid, soft, no splenomegaly, no tenderness, no umbilical hernia, no ventral hernia - Neurologic Neurologic: CNII-XII intact - Musculoskeletal Musculoskeletal: generalized weakness - Psychiatric Psychiatric: A&O x's 3, appropriate affect, intact judgment & insight Results CBC & Chem 7: 07/24/20 17:03 07/24/20 04:01 Labs: Abnormal Lab Results - Last 24 Hours (Table) 07/23/20 07/24/20 07/24/20 Range/Units 20:07 04:01 04:01 RBC (4.30-5.90) m/uL Hgb (13.0-17.5) gm/dL Hct (39.0-53.0) % Plt Count 61 L (150-450) k/uL Lymphocytes # 0.4 L (1.0-4.8) k/uL APTT (22.0-30.0) sec D-Dimer (<0.60) mg/L FEU Sodium 133 L (137-145) mmol/L Carbon Dioxide 31 H (22-30) mmol/L BUN 44 H (9-20) mg/dL POC Glucose (mg/dL) 151 H (75-99) mg/dL Calcium 8.3 L (8.4-10.2) mg/dL 07/24/20 07/24/20 07/24/20 Range/Units 09:20 11:50 15:44 RBC (4.30-5.90) m/uL Hgb (13.0-17.5) gm/dL Hct (39.0-53.0) % Plt Count (150-450) k/uL Lymphocytes # (1.0-4.8) k/uL APTT 21.9 L (22.0-30.0) sec D-Dimer (<0.60) mg/L FEU Sodium (137-145) mmol/L Carbon Dioxide (22-30) mmol/L BUN (9-20) mg/dL POC Glucose (mg/dL) 153 H 128 H (75-99) mg/dL Calcium (8.4-10.2) mg/dL 07/24/20 07/24/20 07/24/20 Range/Units 16:31 17:03 17:03 RBC 3.82 L (4.30-5.90) m/uL Hgb 11.6 L (13.0-17.5) gm/dL Hct 35.4 L (39.0-53.0) % Plt Count 55 L (150-450) k/uL Lymphocytes # (1.0-4.8) k/uL APTT 21.8 L (22.0-30.0) sec D-Dimer 2.15 H (<0.60) mg/L FEU Sodium (137-145) mmol/L Carbon Dioxide (22-30) mmol/L BUN (9-20) mg/dL POC Glucose (mg/dL) 119 H (75-99) mg/dL Calcium (8.4-10.2) mg/dL Assessment and Plan (1) Thrombocytopenia Narrative/Plan: Progressive decline in platelets since admission. Transfuse platelets for symptoms HIT antibody ordered, DIC workup ordered, will repeat those labs also in the a.m.. Patient has had documented episodes of rectal bleeding, now showing decreased hemoglobin. No anticoagulation recommended at this time. Current Visit: Yes Status: Acute Priority: High Code(s): D69.6 - THROMBOCYTOPENIA, UNSPECIFIED SNOMED Code(s): 871706976 (2) Coronavirus infection Current Visit: Yes Status: Acute Priority: High Code(s): B34.2 - CORONAVIRUS INFECTION, UNSPECIFIED SNOMED Code(s): 282201528 Plan: attests: I have seen and examined patient, performed history and physical, developed impression and plan of care. Reviewed documentation, agree with documentation, documented as a scribe
[2020-07-24 20:31] LABS: Glucose,Whole Blood 100 mg/dL (75-99)
[2020-07-24] MEDS: OLANZapine 7.5 MG TAB PO SCH (21:32)
[2020-07-24] MEDS: MORPHINE SULFATE 4 MG/ML SYRINGE IVP PRN (23:04)
[2020-07-24] MEDS ORDERED: DEXMEDETOMIDINE/0.9% NACL(PMX) 400 MCG in EMPTY BAG 1 BAG IV SCH (23:30)
[2020-07-24 23:59] LABS: HCT 35.1 % (39.0-53.0); HGB 12.3 gm/dL (13.0-17.5); MCHC 34.9 g/dL (31.0-37.0); MCV 91.8 fL (80.0-100.0); Mean Platelet Volume 8.9; RBC 3.83 m/uL (4.30-5.90); RDW 14.7 % (11.5-15.5); WBC 5.2 k/uL (3.8-10.6)
[2020-07-25 00:01] LABS: Platelet Count 101 k/uL (150-450)
[2020-07-25] MEDS: NOREPINEPHRINE 8 MG in SODIUM CHLORIDE 0.9% 250 ML IV SCH ×3 (03:22→14:15)
[2020-07-25 03:38] LABS: HCT 33.4 % (39.0-53.0); HGB 10.7 gm/dL (13.0-17.5); MCH 30.3 pg (25.0-35.0); MCHC 32.2 g/dL (31.0-37.0); MCV 94.1 fL (80.0-100.0); Mean Platelet Volume 9.2; RBC 3.55 m/uL (4.30-5.90); RDW 15.2 % (11.5-15.5)
[2020-07-25 03:40] LABS: Platelet Count 77 k/uL (150-450)
[2020-07-25 03:48] LABS: AST 34 U/L (17-59); African American GFR (CKD) >90 (>60 ml/min/1.73 sqM); Albumin 2.2 g/dL (3.5-5.0); Alkaline Phosphatase 112 U/L (38-126); Anion Gap 7 mmol/L; Blood Urea Nitrogen 49 mg/dL (9-20); Calcium 7.4 mg/dL (8.4-10.2); Carbon Dioxide 25 mmol/L (22-30); Chloride 105 mmol/L (98-107); LDH 1513 U/L (313-618); Non-African American GFR(CKD) 82 (>60 ml/min/1.73 sqM); Sodium 137 mmol/L (137-145); Total Bilirubin 1.3 mg/dL (0.2-1.3); Total Protein 4.2 g/dL (6.3-8.2)
[2020-07-25 03:55] LABS: ALT 51 U/L (4-49); D-Dimer 26.05 mg/L FEU (<0.60); Glucose 45 mg/dL (74-99); INR 1.2 (<1.2); Partial Thromboplastin Time 22.8 sec (22.0-30.0); Prothrombin Time 12.2 sec (9.0-12.0)
[2020-07-25 03:56] LABS: Potassium 4.2 mmol/L (3.5-5.1)
[2020-07-25] MEDS ORDERED: DEXTROSE 50% SYRINGE 50 ML IVP STA ×2 (03:58→06:21)
[2020-07-25] MEDS ORDERED: DEXTROSE 50% SYRINGE 50 ML IVP ONE (04:01)
[2020-07-25 04:10] LABS: Band Neutrophils % 48 %; Lymphocytes # (M) 0.14 k/uL (1.0-4.8); Metamyelocytes # (M) 0.28 k/uL (0); Metamyelocytes % 4 %; Monocytes # (M) 0.42 k/uL (0-1.0); Neutrophils % (M) 40 %; Nucleated Red Blood Cells 0 /100 WBC (0-0); Total Cells Counted 200
[2020-07-25 04:20] LABS: Glucose,Whole Blood 112 mg/dL (75-99)
[2020-07-25 05:35] LABS: ABG Base Excess -0.6 mmol/L; ABG HCO3 23 mmol/L (21-25); ABG Oxygen Saturation 83.9 % (94-97); ABG PCO2 31 mmHg (35-45); ABG PH 7.48 (7.35-7.45); ABG TCO2 24 mmol/L (19-24); Allen Test Performed? Yes
[2020-07-25 05:57] LABS: ABG Base Excess -0.2 mmol/L; ABG HCO3 24 mmol/L (21-25); ABG Oxygen Saturation 82.8 % (94-97); ABG PCO2 32 mmHg (35-45); ABG PH 7.47 (7.35-7.45); ABG TCO2 25 mmol/L (19-24); Allen Test Performed? Yes
[2020-07-25 06:18] LABS: Glucose,Whole Blood 57 mg/dL (75-99)
[2020-07-25 06:24] LABS: ABG PO2 45 mmHg (83-108)
[2020-07-25 06:24] LABS: ABG PO2 45 mmHg (83-108)
[2020-07-25 06:39] LABS: Glucose,Whole Blood 113 mg/dL (75-99)
[2020-07-25] MEDS: INSULIN ASPART (NovoLOG) 100 UNIT/ML VIAL SQ SCH ×4 (06:44→21:14)
[2020-07-25] MEDS: INSULIN DETEMIR (LEVEMIR) 100 UNIT/ML SYR SQ SCH (06:45)
[2020-07-25] MEDS: ALBUTEROL HFA INHALER INHALATION PRN ×4 (07:13→20:52)
[2020-07-25] MEDS ORDERED: propofoL 100 ML IV ONE (07:34)
[2020-07-25] MEDS ORDERED: CISATRACURIUM 2 MG/ML 5 ML VIAL IV ONE ×3 (07:41→10:54)
[2020-07-25] MEDS ORDERED: SODIUM CHLORIDE 0.9% 2,000 ML IV ONE ×2 (07:43→08:30)
--- NOTE | 2020-07-25 07:45 | P.PN ---
Subjective Progress Note Date: 07/25/20 On 07/25/2020, the patient is being seen in the intensive care unit. The patient got chest at the ICU yesterday as the patient was becoming progressively more hypoxic and furthermore he had a bout of GI bleeding. Overnight, with a further adjustments on his BiPAP. He is currently on a BiPAP pressure of 16/12 cm of water and FiO2 of 100%. Nevertheless, he continues to be quite hypoxic and his pulse ox has dropped in the mid 70s and current pulse ox is in the low 80s high 70s. His chest x-ray showing diffuse bilateral pulmonary infiltrates consistent with COVID-19 related pneumonia. Contacted the . Recommended intubation mechanical ventilation and this will be done within next few minutes. The patient's blood gases from today showed a pH of 7.47 with a pCO2 of 32 and pO2 of 45 and this was done on the above-mentioned BiPAP setting. His LDH level is 1513 and a CRP level is at 4.0. His white cell count is at 7 with a hemoglobin of 10.7. Platelet count dropped as low as 55 and it came up to 77 after being given a unit of platelets. Platelet wereadministered as the patient was having episodes of lower GI bleed. Meanwhile, the patient has had issues with bright red blood per rectum. The amount of blood was small and there was some drop in hemoglobin which dropped down to 10.7. Meanwhile, he was having a very labile pressure throughout the night. The patient is currently on IV fluids and is currently receiving normal saline at the rate of 125 mL an hour. Urine output has also dropped down to 20 mL an hour. The patient is requiring pressors on and off and currently is on norepinephrine infusion running at 0.3 mcg/kg per minute. Obviously his pressor requirements went gradually up overnight. Renal function today is stable with a mean of 49 and a creatinine of 0.9. He did have a bout of hypoglycemia this morning and he was given an amp of D50 for blood sugar of 45 and his most recent blood sugars of 213. D-dimer today's at 26. He was receiving Levemir insulin 10 units along with sinus. Coverage and Levemir insulin was held this morning. The patient was also started on Precedex on and off throughout the night for agitation or restlessness. This morning, he became more unresponsive and it was discontinued at around 3:00 this morning. Objective - Vital Signs Vital signs: Vital Signs Temp 100.0 F H 07/25/20 04:01 Pulse 114 H 07/25/20 07:00 Resp 33 H 07/25/20 07:00 BP 104/55 07/25/20 07:00 Pulse Ox 82 L 07/25/20 07:00 Intake & Output 07/24/20 07/25/20 07/25/20 18:59 06:59 18:59 Intake Total 375 1882.689 144.829 Output Total 825 20 Balance 375 1057.689 124.829 Weight 94.6 kg Intake: IV 375 1375 125 .9 KVO 375 1375 125 Intake, IV Titration 105.689 19.829 Amount Dexmedetomidine/0.9% NaCl 29.234 (Pmx) 400 mcg In Empty Bag 1 bag @ Titrate IV . Q0M ROBERT Rx#:[id number] Norepinephrine 8 mg In 76.455 19.829 Sodium Chloride 0.9% 250 ml @ 0.05 MCG/KG/MIN 9. 124 mls/hr IV .Q24H ROBERT Rx#:[id number] Blood Product 402 Platelet Pheresis Acd-A 402 Pasc 1 Unit [id number] Output: Urine 825 20 Other: Voiding Method Indwelling Catheter # Voids 1 0 - Exam GENERAL EXAM: Alert, very pleasant, 70-year-old white male, currently unresponsive, on a BiPAP at a pressure of 16/12 cm of water and FiO2 of 100%. He is quite hypoxic with pulse ox in the mid 70s. HEAD: Normocephalic/atraumatic. EYES: Normal reaction of pupils, equal size. Conjunctiva pink, sclera white. NOSE: Clear with pink turbinates. THROAT: No erythema or exudates. NECK: No masses, no JVD, no thyroid enlargement, no adenopathy. CHEST: No chest wall deformity. Symmetrical expansion. LUNGS: Equal air entry with diminished breath sounds bilaterally, with bilateral base crackles CVS: Regular rate and rhythm, normal S1 and S2, no gallops, no murmurs, no rubs ABDOMEN: Soft, nontender. No hepatosplenomegaly, normal bowel sounds, no guarding or rigidity. EXTREMITIES: No clubbing, no edema, no cyanosis, 2+ pulses and upper and lower extremities. MUSCULOSKELETAL: Muscle strength and tone normal. SPINE: No scoliosis or deformity SKIN: No rashes CENTRAL NERVOUS SYSTEM: Oximetry isn't withdrawing to painful stimulation. Pupils are equal and reactive to light. Not following any verbal commands and . PSYCHIATRIC: unable to perform - Labs CBC & Chem 7: 07/25/20 03:05 07/25/20 03:05 Labs: Abnormal Lab Results - Last 24 Hours (Table) 07/24/20 07/24/20 07/24/20 Range/Units 09:20 09:20 11:50 RBC (4.30-5.90) m/uL Hgb (13.0-17.5) gm/dL Hct (39.0-53.0) % Plt Count (150-450) k/uL Lymphocytes # (Manual) (1.0-4.8) k/uL Metamyelocytes # (Man) (0) k/uL PT (9.0-12.0) sec INR (<1.2) APTT 21.9 L (22.0-30.0) sec D-Dimer (<0.60) mg/L FEU ABG pH (7.35-7.45) ABG pCO2 (35-45) mmHg ABG pO2 (83-108) mmHg ABG Total CO2 (19-24) mmol/L ABG O2 Saturation (94-97) % BUN (9-20) mg/dL Glucose (74-99) mg/dL POC Glucose (mg/dL) 153 H (75-99) mg/dL Calcium (8.4-10.2) mg/dL ALT (4-49) U/L Lactate Dehydrogenase (313-618) U/L C-Reactive Protein (<1.0) mg/dL Total Protein (6.3-8.2) g/dL Albumin (3.5-5.0) g/dL Vitamin B12 948.0 H (200.0-944.0) pg/mL 07/24/20 07/24/20 07/24/20 Range/Units 15:44 16:31 17:03 RBC 3.82 L (4.30-5.90) m/uL Hgb 11.6 L (13.0-17.5) gm/dL Hct 35.4 L (39.0-53.0) % Plt Count 55 L (150-450) k/uL Lymphocytes # (Manual) (1.0-4.8) k/uL Metamyelocytes # (Man) (0) k/uL PT (9.0-12.0) sec INR (<1.2) APTT (22.0-30.0) sec D-Dimer (<0.60) mg/L FEU ABG pH (7.35-7.45) ABG pCO2 (35-45) mmHg ABG pO2 (83-108) mmHg ABG Total CO2 (19-24) mmol/L ABG O2 Saturation (94-97) % BUN (9-20) mg/dL Glucose (74-99) mg/dL POC Glucose (mg/dL) 128 H 119 H (75-99) mg/dL Calcium (8.4-10.2) mg/dL ALT (4-49) U/L Lactate Dehydrogenase (313-618) U/L C-Reactive Protein (<1.0) mg/dL Total Protein (6.3-8.2) g/dL Albumin (3.5-5.0) g/dL Vitamin B12 (200.0-944.0) pg/mL 07/24/20 07/24/20 07/24/20 Range/Units 17:03 20:29 23:34 RBC 3.83 L (4.30-5.90) m/uL Hgb 12.3 L (13.0-17.5) gm/dL Hct 35.1 L (39.0-53.0) % Plt Count 101 L D (150-450) k/uL Lymphocytes # (Manual) (1.0-4.8) k/uL Metamyelocytes # (Man) (0) k/uL PT (9.0-12.0) sec INR (<1.2) APTT 21.8 L (22.0-30.0) sec D-Dimer 2.15 H (<0.60) mg/L FEU ABG pH (7.35-7.45) ABG pCO2 (35-45) mmHg ABG pO2 (83-108) mmHg ABG Total CO2 (19-24) mmol/L ABG O2 Saturation (94-97) % BUN (9-20) mg/dL Glucose (74-99) mg/dL POC Glucose (mg/dL) 100 H (75-99) mg/dL Calcium (8.4-10.2) mg/dL ALT (4-49) U/L Lactate Dehydrogenase (313-618) U/L C-Reactive Protein (<1.0) mg/dL Total Protein (6.3-8.2) g/dL Albumin (3.5-5.0) g/dL Vitamin B12 (200.0-944.0) pg/mL 07/25/20 07/25/20 07/25/20 Range/Units 03:05 03:05 03:05 RBC 3.55 L (4.30-5.90) m/uL Hgb 10.7 L (13.0-17.5) gm/dL Hct 33.4 L (39.0-53.0) % Plt Count 77 L (150-450) k/uL Lymphocytes # (Manual) 0.14 L (1.0-4.8) k/uL Metamyelocytes # (Man) 0.28 H (0) k/uL PT 12.2 H (9.0-12.0) sec INR 1.2 H (<1.2) APTT (22.0-30.0) sec D-Dimer 26.05 H (<0.60) mg/L FEU ABG pH (7.35-7.45) ABG pCO2 (35-45) mmHg ABG pO2 (83-108) mmHg ABG Total CO2 (19-24) mmol/L ABG O2 Saturation (94-97) % BUN 49 H (9-20) mg/dL Glucose 45 L* (74-99) mg/dL POC Glucose (mg/dL) (75-99) mg/dL Calcium 7.4 L (8.4-10.2) mg/dL ALT 51 H (4-49) U/L Lactate Dehydrogenase 1513 H (313-618) U/L C-Reactive Protein 4.0 H (<1.0) mg/dL Total Protein 4.2 L (6.3-8.2) g/dL Albumin 2.2 L (3.5-5.0) g/dL Vitamin B12 (200.0-944.0) pg/mL 07/25/20 07/25/20 07/25/20 Range/Units 04:19 05:32 05:55 RBC (4.30-5.90) m/uL Hgb (13.0-17.5) gm/dL Hct (39.0-53.0) % Plt Count (150-450) k/uL Lymphocytes # (Manual) (1.0-4.8) k/uL Metamyelocytes # (Man) (0) k/uL PT (9.0-12.0) sec INR (<1.2) APTT (22.0-30.0) sec D-Dimer (<0.60) mg/L FEU ABG pH 7.48 H 7.47 H (7.35-7.45) ABG pCO2 31 L 32 L (35-45) mmHg ABG pO2 45 L* 45 L* (83-108) mmHg ABG Total CO2 25 H (19-24) mmol/L ABG O2 Saturation 83.9 L 82.8 L (94-97) % BUN (9-20) mg/dL Glucose (74-99) mg/dL POC Glucose (mg/dL) 112 H (75-99) mg/dL Calcium (8.4-10.2) mg/dL ALT (4-49) U/L Lactate Dehydrogenase (313-618) U/L C-Reactive Protein (<1.0) mg/dL Total Protein (6.3-8.2) g/dL Albumin (3.5-5.0) g/dL Vitamin B12 (200.0-944.0) pg/mL 07/25/20 07/25/20 Range/Units 06:17 06:37 RBC (4.30-5.90) m/uL Hgb (13.0-17.5) gm/dL Hct (39.0-53.0) % Plt Count (150-450) k/uL Lymphocytes # (Manual) (1.0-4.8) k/uL Metamyelocytes # (Man) (0) k/uL PT (9.0-12.0) sec INR (<1.2) APTT (22.0-30.0) sec D-Dimer (<0.60) mg/L FEU ABG pH (7.35-7.45) ABG pCO2 (35-45) mmHg ABG pO2 (83-108) mmHg ABG Total CO2 (19-24) mmol/L ABG O2 Saturation (94-97) % BUN (9-20) mg/dL Glucose (74-99) mg/dL POC Glucose (mg/dL) 57 L 113 H (75-99) mg/dL Calcium (8.4-10.2) mg/dL ALT (4-49) U/L Lactate Dehydrogenase (313-618) U/L C-Reactive Protein (<1.0) mg/dL Total Protein (6.3-8.2) g/dL Albumin (3.5-5.0) g/dL Vitamin B12 (200.0-944.0) pg/mL Assessment and Plan Plan: #1. Acute hypoxemic respiratory failure secondary to COVID-19 pneumonia. Outside the window for Remdesivir, that is post Toci 800 mg on 07/06/2020 for worsening hypoxic respiratory failure. During the course of the treatment, the patient was she able to high flow oxygen and BiPAP for respiratory support. He got chest to the intensive care unit yesterday because of worsening respiratory status and hypoxemia. He was placed on BiPAP at a pressure of 16/12 and FiO2 of 100%. Was unable to respond. Still having labored breathing. Using excessive muscle breathing in one on the BiPAP. The patient further had altered mentation, more than instability, hypotension and GI bleed. Family has been contacted and the patient will be intubated for respiratory support and placed on a mechanical ventilator. Chest x-ray findings from this morning and this filtrates consistent with COVID-19 related pneumonia. Blood gases showing severe hypoxemia. #2. Increased inflammatory markers related to the above, Increased d-dimer, lower extremity Dopplers showed no evidence of DVT, patient remains on Lovenox 45 mg twice daily and a d-dimer is still elevated for now #3 hypotension/shock, currently requiring higher doses of pressors. #4. Chronic atrial fibrillation #5. Coronary artery disease with previous stent placement #6. GERD/reflux #7. Hypertension #8. Hyperlipidemia #9. History of rheumatic fever #10. History of gout #11. Acute kidney injury recovered #12. Decreased oral intake and inability to sustain oral intake related to BiPAP device, and dependence on noninvasive ventilatory support, patient is currently on TPN for nutritional support. TPN has been discontinued, as the patient was able to take some oral intake over the past few days. His condition further decompensated. #13. Thrombocytopenia, anticoagulation has been placed on hold, rule out possibility of HIT, given a platelet transfusion and the platelet count is currently at 77 #14 lower GI bleed with some mild drop in hemoglobin and the patient was transfused with platelets #15 hypoglycemia, treated with D50 2 with adequate response Plan: Family was contacted and informed Proceed with intubation mechanical ventilation We'll likely need sedation paralysis Continue pressors Dear 2 L of IV fluid bolus Check pro calcitonin level Subjective sense of blood cultures Hold Lantus insulin for now Discontinue TPN and initiate enteral feeding for nutritional support White for any signs of GI bleed Monitor platelet count stop Lovenox for now GI consultation has been obtained regarding his GI bleed Start the patient on Decadron 6 mg IV every 24 hours of the prednisone IV Protonix IV cefepime and vancomycin as an empiric antibiotic coverage pending further cultures Condition is critical and will continue to follow. evaluation was done and more than 30 minutes Time with Patient: Greater than 30
[2020-07-25] MEDS ORDERED: VANCOMYCIN IV PER PHARMACY 1 EACH MISC MISCELLANE PRN (07:48)
[2020-07-25 08:33] LABS: ABG HCO3 22 mmol/L (21-25); ABG Oxygen Saturation 91.6 % (94-97); ABG PCO2 52 mmHg (35-45); ABG PH 7.25 (7.35-7.45); ABG PO2 73 mmHg (83-108); ABG TCO2 24 mmol/L (19-24)
--- NOTE | 2020-07-25 08:33 | P.PCN ---
Date of Procedure: 07/25/20 Preoperative Diagnosis: COVID-19 related pneumonia Postoperative Diagnosis: COVID-19 related pneumonia Procedure(s) Performed: Intubation, triple-lumen catheter insertion, arterial line catheter insertion Anesthesia: local Surgeon: Henry King Estimated Blood Loss (ml): 0 Pathology: none sent Condition: critical Disposition: ICU Operative Findings: Indication: Respiratory compromise. A time-out was completed verifying correct patient, procedure, site, positioning, and implant(s) or special equipment if applicable. The patient was positioned appropriately and a 8 endotracheal tube was placed under direct laryngoscopy. The tube was anchored at 22 cm at the teeth. Correct placement was confirmed by presence of bilateral breath sounds without air sounds in the abdomen on auscultation. An end-tidal CO2 monitor was also used to confirm tracheal placement of the ET tube. A chest x-ray was ordered to assess for pneumothorax and verify endotracheal tube placement. The patient tolerated the procedure well and there were no complications. Indication: Hemodynamic monitoring/Intravenous access. A time-out was completed verifying correct patient, procedure, site, positioning, and implant(s) or special equipment if applicable. The patient was placed in a dependent position appropriate for central line placement based on the vein to be cannulated. The patients right neck was prepped and draped in sterile fashion. 1% Lidocaine was used to anesthetize the surrounding skin area. A triple lumen 9F Cordis catheter was introduced into the internal jugular vein using Seldinger technique. The catheter was threaded smoothly over the guide wire and appropriate blood return was obtained. Each lumen of the catheter was evacuated of air and flushed with sterile saline. The catheter was then sutured in place to the skin and a sterile dressing applied. Perfusion to the extremity distal to the point of catheter insertion was checked and found to be adequate. The patient tolerated the procedure well and there were no complications. Indication: Hemodynamic monitoring. A time-out was completed verifying correct patient, procedure, site, positioning, and implant(s) or special equipment if applicable. The patients left groin was prepped and draped in sterile fashion. 1% Lidocaine was used to anesthetize the area. An 18G Arrow arterial line was introduced into the [radial/femoral] artery. The catheter was threaded over the guide wire and the needle was removed with appropriate pulsatile blood return. Blood loss was minimal. The catheter was then sutured in place to the skin and a sterile dressing applied. Perfusion to the extremity distal to the point of catheter insertion was checked and found to be adequate. The patient tolerated the procedure well and there were no complications.
[2020-07-25 08:34] LABS: Allen Test Performed? no
[2020-07-25] MEDS ORDERED: PANTOPRAZOLE 40 MG/10 ML VIAL IVP SCH (09:00)
[2020-07-25] MEDS ORDERED: DEXAMETHASONE SOD PHOSPHATE 10 MG/ML 1 ML VIAL IV SCH (09:00)
[2020-07-25] MEDS ORDERED: CEFEPIME 2 GM in SODIUM CHLORIDE 0.9% 100 ML IVPB SCH (09:00)
--- NOTE | 2020-07-25 09:19 | XR ---
EXAMINATION TYPE: XR chest 1V portable DATE OF EXAM: 07/25/2020 CLINICAL HISTORY: Intubated, central line placement.. TECHNIQUE: Single AP portable supine view of the chest is obtained. COMPARISON: Chest x-ray from earlier today and older studies FINDINGS: New right internal jugular central venous catheter terminates In the SVC. New moderate to large right-sided pneumothorax estimated near 65%. New Endotracheal tube terminates aortic knob level above the hayden. New Orogastric tube projects below l eft hemidiaphragm. No significant new mediastinal shift. Stable left-sided PICC line. Cardiac silhouette size stable and within normal limits with atherosclerotic aorta. Reticulonodular and parenchymal multifocal and confluent opacities bilaterally show increased promine nce. Visualized osseous structures are intact. IMPRESSION: 1. New fairly large right-sided pneumothorax estimated 65% after central line placement. No significa nt new mediastinal shift. 2. New endotracheal and orogastric tubes satisfactory in position. 3. Worsening multifocal and confluent reticulonodular and parenchymal opacities suggesting infiltrate and/or atelectasis progression. Critical results communicated to ICU via telephone at time of dictation.
--- NOTE | 2020-07-25 09:20 | XR ---
EXAMINATION TYPE: XR chest 1V portable DATE OF EXAM: 07/25/2020 CLINICAL HISTORY: chest tube placement. Covid 19 positive. TECHNIQUE: Portable supine frontal view of the chest COMPARISON: 07/25/2020 8:31 AM FINDINGS: Interval placement of right-sided chest tube, with small residual pneumothorax as demonstra joshua by deep sulcus sign of the right costophrenic angle. There is significant reexpansion of the righ t lung status post chest tube placement. Endotracheal tube, right internal jugular central venous cat heter, left PICC, and enteric tube redemonstrated. There are diffuse moderate interstitial opacities, worse peripherally and at the left lung base, which are unchanged. No pleural effusion. Cardiac size normal. IMPRESSION: Status post right-sided chest tube placement, with small residual pneumothorax at the right costophre ayah angle. There is significant reexpansion of the right lung post chest tube placement.
--- NOTE | 2020-07-25 09:34 | XR ---
EXAMINATION TYPE: XR chest 1V portable DATE OF EXAM: 07/25/2020 CLINICAL HISTORY: covid. TECHNIQUE: Portable frontal view of the chest. COMPARISON: 07/23/2020 FINDINGS: Cardiac mediastinal silhouette is normal. Diffuse moderate interstitial opacities redemonst rated, with mildly improved aeration at the right peripheral basilar lung. No pleural effusion. No pn eumothorax. IMPRESSION: Interstitial opacities bilaterally, with mildly improved aeration at the right peripheral lung base v ersus 07/23/2020.
[2020-07-25 09:56] LABS: Ferritin 1472.6 ng/mL (22.0-322.0)
[2020-07-25] MEDS: VANCOMYCIN 1,500 MG in SODIUM CHLORIDE 0.9% 250 ML IVPB SCH ×2 (10:06→21:13)
[2020-07-25 10:09] LABS: ABG Base Excess -6.3 mmol/L; ABG HCO3 22 mmol/L (21-25); ABG Oxygen Saturation 94.3 % (94-97); ABG PCO2 59 mmHg (35-45); ABG PO2 90 mmHg (83-108); ABG TCO2 24 mmol/L (19-24)
[2020-07-25 10:12] LABS: ABG PH 7.18 (7.35-7.45); Allen Test Performed? no
[2020-07-25] MEDS: SODIUM CHLORIDE 0.9% 1,000 ML IV SCH (10:12)
[2020-07-25] MEDS: METOPROLOL TARTRATE 25 MG TAB PO SCH ×2 (10:13→20:48)
[2020-07-25] MEDS: DOCUSATE 100 MG CAP PO SCH ×2 (10:13→20:48)
[2020-07-25] MEDS: allopurinoL 100 MG TAB PO SCH (10:13)
[2020-07-25] MEDS: SENNOSIDES-DOCUSATE SODIUM 1 EACH TAB PO SCH ×2 (10:14→20:48)
--- NOTE | 2020-07-25 10:15 | P.PCN ---
Date of Procedure: 07/25/20 Preoperative Diagnosis: Right-sided pneumothorax Postoperative Diagnosis: Right-sided pneumothorax Procedure(s) Performed: Insertion of a chest tube Anesthesia: local Pathology: none sent Condition: critical Disposition: ICU Operative Findings: A time-out was completed verifying correct patient, procedure, site, positioning, and special equipment if applicable. The patient was positioned appropriately for chest tube placement. The patient right chest was prepped and draped in sterile fashion. 1% Lidocaine was used to anesthetize the surrounding skin area. A 2 cm skin incision was made in the mid-axillary line at the inframammary crease. Utilizing blunt dissection a subcutaneous tunnel was created cephalad just adjacent to the superior rib. The pleural space was entered bluntly and gush of air was observed. A finger was inserted into the pleural space to check for anatomy and guide tube insertion. A 32 thoracostomy tube was inserted using a Raquel clamp and positioned appropriately. The chest tube was sutured securely to the skin and a sterile dressing applied. A pleurevac was attached to the chest tube and a chest x-ray obtained. I personally performed this procedure and I was was present for the entire procedure. Estimated Blood Loss: 0 The patient tolerated the procedure well and there were no complications.
[2020-07-25 10:52] LABS: Glucose,Whole Blood 75 mg/dL (75-99)
[2020-07-25] MEDS ORDERED: CISATRACURIUM 200 MG in SODIUM CHLORIDE 0.9% 180 ML IV SCH (11:00)
[2020-07-25] MEDS: ARTIFICIAL TEARS-HYPROMELLOSE DROPS 15 ML BTL BOTH EYES SCH ×4 (11:26→23:29)
[2020-07-25 11:35] LABS: Glucose,Whole Blood 79 mg/dL (75-99)
[2020-07-25] MEDS: CEFEPIME 2 GM in SODIUM CHLORIDE 0.9% 100 ML IVPB SCH ×2 (12:10→23:28)
--- NOTE | 2020-07-25 12:33 | P.GSCN ---
History of Present Illness Consult date: 07/25/20 Reason for Consult: GI bleed History of present illness: Patient has been hospitalized for the last month or so with Covid pneumonia. Overnight the patient was found to have some bloody stools and became progressively more obtunded and was intubated this morning by Dr. King. Oral gastric tube without any output. No rectal bleeding for the last few hours. Apparently it was heavily temporarily. His platelet levels have been dropping somewhat. Platelets were 61 recently. Hemoglobin slowly dropping although still above 10. Patient not able to provide any history. Endoscopic history unknown. Patient is on pressors at this time. A chest tube was required after intubation. 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), gout, Last Myocardial Infarction Date:: 05-09-06 History of Any Multi-Drug Resistant Organisms: None Reported Past Surgical History: Back Surgery, Heart Catheterization With Stent, Hernia Repair, Orthopedic Surgery Additional Past Surgical History / Comment(s): LT INGUINAL HERNIA, LT EYE SX TO REPAIR THE BROKEN ORBIT HAS METAL IN PLACE, 2 cardiac stents, surgery for fx rt foot Past Anesthesia/Blood Transfusion Reactions: Previous Problems w/ Anesthesia Additional Past Anesthesia/Blood Transfusion Reaction / Comm: one time "was not very nice when coming out of anesthesia" Date of Last Stent Placement:: 05-09-06 Past Psychological History: No Psychological Hx Reported Smoking Status: Never smoker Past Alcohol Use History: None Reported Additional Past Alcohol Use History / Comment(s): smoked x 20 years, 1ppd quit 1998 Past Drug Use History: None Reported - Past Family History Father Family Medical History: Cancer Additional Family Medical History / Comment(s): COLON CANCER Medications and Allergies Home Medications Medication Instructions Recorded Confirmed Type Allopurinol [Zyloprim] 100 mg PO DAILY 09/09/17 06/21/20 History Metoprolol Tartrate [Lopressor] 25 mg PO BID #60 tab 09/15/17 06/21/20 Rx Rosuvastatin Calcium 5 mg PO HS 06/21/20 06/21/20 History lisinopriL [Zestril] 2.5 mg PO HS 06/21/20 06/21/20 History Gabapentin [Neurontin] 300 mg PO TID PRN 06/22/20 06/22/20 History predniSONE See Taper PO DAILY 06/22/20 06/22/20 History Allergies Allergy/AdvReac Type Severity Reaction Status Date / Time Penicillins Allergy Unknown Verified 06/21/20 21:33 Surgical - Exam Vital Signs Temp Pulse Resp BP Pulse Ox 99.9 F H 68 22 127/80 80 L 06/21/20 20:20 06/21/20 20:20 06/21/20 20:20 06/21/20 20:20 06/21/20 20:20 Physical exam: General: Well-developed, well-nourished HEENT: Normocephalic, sclerae nonicteric, endotracheal tube and oral gastric tube in place Abdomen: Nontender, nondistended Extremities: Mild lower extremity edema Neuro: On the ventilator Results - Labs 07/25/20 03:05 07/25/20 03:05 Abnormal Lab Results - Last 24 Hours (Table) 07/24/20 07/24/20 07/24/20 Range/Units 09:20 15:44 16:31 RBC (4.30-5.90) m/uL Hgb (13.0-17.5) gm/dL Hct (39.0-53.0) % Plt Count (150-450) k/uL Lymphocytes # (Manual) (1.0-4.8) k/uL Metamyelocytes # (Man) (0) k/uL PT (9.0-12.0) sec INR (<1.2) APTT (22.0-30.0) sec D-Dimer (<0.60) mg/L FEU ABG pH (7.35-7.45) ABG pCO2 (35-45) mmHg ABG pO2 (83-108) mmHg ABG Total CO2 (19-24) mmol/L ABG O2 Saturation (94-97) % BUN (9-20) mg/dL Glucose (74-99) mg/dL POC Glucose (mg/dL) 128 H 119 H (75-99) mg/dL Calcium (8.4-10.2) mg/dL Ferritin (22.0-322.0) ng/mL ALT (4-49) U/L Lactate Dehydrogenase (313-618) U/L C-Reactive Protein (<1.0) mg/dL Total Protein (6.3-8.2) g/dL Albumin (3.5-5.0) g/dL Vitamin B12 948.0 H (200.0-944.0) pg/mL Procalcitonin (0.02-0.09) ng/mL 07/24/20 07/24/20 07/24/20 Range/Units 17:03 17:03 20:29 RBC 3.82 L (4.30-5.90) m/uL Hgb 11.6 L (13.0-17.5) gm/dL Hct 35.4 L (39.0-53.0) % Plt Count 55 L (150-450) k/uL Lymphocytes # (Manual) (1.0-4.8) k/uL Metamyelocytes # (Man) (0) k/uL PT (9.0-12.0) sec INR (<1.2) APTT 21.8 L (22.0-30.0) sec D-Dimer 2.15 H (<0.60) mg/L FEU ABG pH (7.35-7.45) ABG pCO2 (35-45) mmHg ABG pO2 (83-108) mmHg ABG Total CO2 (19-24) mmol/L ABG O2 Saturation (94-97) % BUN (9-20) mg/dL Glucose (74-99) mg/dL POC Glucose (mg/dL) 100 H (75-99) mg/dL Calcium (8.4-10.2) mg/dL Ferritin (22.0-322.0) ng/mL ALT (4-49) U/L Lactate Dehydrogenase (313-618) U/L C-Reactive Protein (<1.0) mg/dL Total Protein (6.3-8.2) g/dL Albumin (3.5-5.0) g/dL Vitamin B12 (200.0-944.0) pg/mL Procalcitonin (0.02-0.09) ng/mL 07/24/20 07/25/20 07/25/20 Range/Units 23:34 03:05 03:05 RBC 3.83 L 3.55 L (4.30-5.90) m/uL Hgb 12.3 L 10.7 L (13.0-17.5) gm/dL Hct 35.1 L 33.4 L (39.0-53.0) % Plt Count 101 L D 77 L (150-450) k/uL Lymphocytes # (Manual) 0.14 L (1.0-4.8) k/uL Metamyelocytes # (Man) 0.28 H (0) k/uL PT 12.2 H (9.0-12.0) sec INR 1.2 H (<1.2) APTT (22.0-30.0) sec D-Dimer 26.05 H (<0.60) mg/L FEU ABG pH (7.35-7.45) ABG pCO2 (35-45) mmHg ABG pO2 (83-108) mmHg ABG Total CO2 (19-24) mmol/L ABG O2 Saturation (94-97) % BUN (9-20) mg/dL Glucose (74-99) mg/dL POC Glucose (mg/dL) (75-99) mg/dL Calcium (8.4-10.2) mg/dL Ferritin (22.0-322.0) ng/mL ALT (4-49) U/L Lactate Dehydrogenase (313-618) U/L C-Reactive Protein (<1.0) mg/dL Total Protein (6.3-8.2) g/dL Albumin (3.5-5.0) g/dL Vitamin B12 (200.0-944.0) pg/mL Procalcitonin (0.02-0.09) ng/mL 07/25/20 07/25/20 07/25/20 Range/Units 03:05 03:05 04:19 RBC (4.30-5.90) m/uL Hgb (13.0-17.5) gm/dL Hct (39.0-53.0) % Plt Count (150-450) k/uL Lymphocytes # (Manual) (1.0-4.8) k/uL Metamyelocytes # (Man) (0) k/uL PT (9.0-12.0) sec INR (<1.2) APTT (22.0-30.0) sec D-Dimer (<0.60) mg/L FEU ABG pH (7.35-7.45) ABG pCO2 (35-45) mmHg ABG pO2 (83-108) mmHg ABG Total CO2 (19-24) mmol/L ABG O2 Saturation (94-97) % BUN 49 H (9-20) mg/dL Glucose 45 L* (74-99) mg/dL POC Glucose (mg/dL) 112 H (75-99) mg/dL Calcium 7.4 L (8.4-10.2) mg/dL Ferritin 1472.6 H (22.0-322.0) ng/mL ALT 51 H (4-49) U/L Lactate Dehydrogenase 1513 H (313-618) U/L C-Reactive Protein 4.0 H (<1.0) mg/dL Total Protein 4.2 L (6.3-8.2) g/dL Albumin 2.2 L (3.5-5.0) g/dL Vitamin B12 (200.0-944.0) pg/mL Procalcitonin 9.51 H (0.02-0.09) ng/mL 07/25/20 07/25/20 07/25/20 Range/Units 05:32 05:55 06:17 RBC (4.30-5.90) m/uL Hgb (13.0-17.5) gm/dL Hct (39.0-53.0) % Plt Count (150-450) k/uL Lymphocytes # (Manual) (1.0-4.8) k/uL Metamyelocytes # (Man) (0) k/uL PT (9.0-12.0) sec INR (<1.2) APTT (22.0-30.0) sec D-Dimer (<0.60) mg/L FEU ABG pH 7.48 H 7.47 H (7.35-7.45) ABG pCO2 31 L 32 L (35-45) mmHg ABG pO2 45 L* 45 L* (83-108) mmHg ABG Total CO2 25 H (19-24) mmol/L ABG O2 Saturation 83.9 L 82.8 L (94-97) % BUN (9-20) mg/dL Glucose (74-99) mg/dL POC Glucose (mg/dL) 57 L (75-99) mg/dL Calcium (8.4-10.2) mg/dL Ferritin (22.0-322.0) ng/mL ALT (4-49) U/L Lactate Dehydrogenase (313-618) U/L C-Reactive Protein (<1.0) mg/dL Total Protein (6.3-8.2) g/dL Albumin (3.5-5.0) g/dL Vitamin B12 (200.0-944.0) pg/mL Procalcitonin (0.02-0.09) ng/mL 07/25/20 07/25/20 07/25/20 Range/Units 06:37 08:27 10:07 RBC (4.30-5.90) m/uL Hgb (13.0-17.5) gm/dL Hct (39.0-53.0) % Plt Count (150-450) k/uL Lymphocytes # (Manual) (1.0-4.8) k/uL Metamyelocytes # (Man) (0) k/uL PT (9.0-12.0) sec INR (<1.2) APTT (22.0-30.0) sec D-Dimer (<0.60) mg/L FEU ABG pH 7.25 L 7.18 L* (7.35-7.45) ABG pCO2 52 H 59 H (35-45) mmHg ABG pO2 73 L (83-108) mmHg ABG Total CO2 (19-24) mmol/L ABG O2 Saturation 91.6 L (94-97) % BUN (9-20) mg/dL Glucose (74-99) mg/dL POC Glucose (mg/dL) 113 H (75-99) mg/dL Calcium (8.4-10.2) mg/dL Ferritin (22.0-322.0) ng/mL ALT (4-49) U/L Lactate Dehydrogenase (313-618) U/L C-Reactive Protein (<1.0) mg/dL Total Protein (6.3-8.2) g/dL Albumin (3.5-5.0) g/dL Vitamin B12 (200.0-944.0) pg/mL Procalcitonin (0.02-0.09) ng/mL Diabetes panel 07/25/20 Range/Units 03:05 Sodium 137 (137-145) mmol/L Potassium 4.2 (3.5-5.1) mmol/L Chloride 105 (98-107) mmol/L Carbon Dioxide 25 (22-30) mmol/L BUN 49 H (9-20) mg/dL Creatinine 0.95 (0.66-1.25) mg/dL Glucose 45 L* (74-99) mg/dL Calcium 7.4 L (8.4-10.2) mg/dL AST 34 (17-59) U/L ALT 51 H (4-49) U/L Alkaline Phosphatase 112 (38-126) U/L Total Protein 4.2 L (6.3-8.2) g/dL Albumin 2.2 L (3.5-5.0) g/dL Calcium panel 07/25/20 Range/Units 03:05 Calcium 7.4 L (8.4-10.2) mg/dL Albumin 2.2 L (3.5-5.0) g/dL Pituitary panel 07/25/20 Range/Units 03:05 Sodium 137 (137-145) mmol/L Potassium 4.2 (3.5-5.1) mmol/L Chloride 105 (98-107) mmol/L Carbon Dioxide 25 (22-30) mmol/L BUN 49 H (9-20) mg/dL Creatinine 0.95 (0.66-1.25) mg/dL Glucose 45 L* (74-99) mg/dL Calcium 7.4 L (8.4-10.2) mg/dL Adrenal panel 07/25/20 Range/Units 03:05 Sodium 137 (137-145) mmol/L Potassium 4.2 (3.5-5.1) mmol/L Chloride 105 (98-107) mmol/L Carbon Dioxide 25 (22-30) mmol/L BUN 49 H (9-20) mg/dL Creatinine 0.95 (0.66-1.25) mg/dL Glucose 45 L* (74-99) mg/dL Calcium 7.4 L (8.4-10.2) mg/dL Total Bilirubin 1.3 (0.2-1.3) mg/dL AST 34 (17-59) U/L ALT 51 H (4-49) U/L Alkaline Phosphatase 112 (38-126) U/L Total Protein 4.2 L (6.3-8.2) g/dL Albumin 2.2 L (3.5-5.0) g/dL Assessment and Plan (1) GI bleed Narrative/Plan: 70-year-old male with GI bleed in the setting of colon with pneumonia. Bleeding seems to have slowed down this morning. Will monitor hemoglobin closely. Continue antiacid therapy. When hemodynamically more stable upper and lower endoscopy would be advised. We'll follow closely with you. Current Visit: Yes Status: Acute Code(s): K92.2 - GASTROINTESTINAL HEMORRHAGE, UNSPECIFIED SNOMED Code(s): 22048923
[2020-07-25] MEDS ORDERED: SODIUM BICARB 8.4% 50 ML SYR (1 MEQ/ML) ONE ×4 (12:43→17:47)
[2020-07-25] MEDS ORDERED: EPINEPHrine 10 ML SYRINGE (0.1 MG/ML) ONE (12:43)
[2020-07-25 13:06] LABS: ABG Base Excess 16.3 mmol/L; ABG Oxygen Saturation 82.2 % (94-97); ABG PH 7.33 (7.35-7.45); ABG TCO2 45 mmol/L (19-24)
[2020-07-25 13:36] LABS: ABG PCO2 80 mmHg (35-45)
[2020-07-25 13:37] LABS: ABG HCO3 42 mmol/L (21-25); ABG PO2 51 mmHg (83-108); Allen Test Performed? no
[2020-07-25] MEDS: EPINEPHrine 4 MG in DEXTROSE 5% IN WATER 250 ML IV SCH ×6 (13:45→20:47)
--- NOTE | 2020-07-25 13:47 | XR ---
EXAMINATION TYPE: XR chest 1V DATE OF EXAM: 07/25/2020 CLINICAL HISTORY: Difficulty breathing progress study. TECHNIQUE: Single AP portable supine view of the chest is obtained. COMPARISON: Chest x-ray from earlier today and older studies. FINDINGS: New large left-sided pneumothorax. New slight left-sided mediastinal shift. Right basilar chest tube with increasing adjacent subcutaneous emphysema. Stable endotracheal and orogastric tubes. Stable left-sided PICC line. Reticulonodular opacities throughout the right lung. Collapse left central lung. Visualized osseous s tructures are intact. IMPRESSION: New Large left-sided pneumothorax with slight right-sided mediastinal shift. Findings were already known at time of dictation
[2020-07-25 14:05] LABS: Glucose,Whole Blood 98 mg/dL (75-99)
--- NOTE | 2020-07-25 14:08 | P.PN ---
Subjective Progress Note Date: 07/25/20 Principal diagnosis: thrombocytopenia, covid Pt sedated and intubated, chest tube inserted Objective - Vital Signs Vital signs: Vital Signs Temp 100.0 F H 07/25/20 04:01 Pulse 114 H 07/25/20 07:00 Resp 33 H 07/25/20 07:00 BP 104/55 07/25/20 07:00 Pulse Ox 82 L 07/25/20 07:00 Intake & Output 07/24/20 07/25/20 07/25/20 18:59 06:59 18:59 Intake Total 375 1882.689 557.016 Output Total 825 20 Balance 375 1057.689 537.016 Weight 94.6 kg Intake: IV 375 1375 125 .9 KVO 375 1375 125 Intake, IV Titration 105.689 432.016 Amount Dexmedetomidine/0.9% NaCl 29.234 (Pmx) 400 mcg In Empty Bag 1 bag @ Titrate IV . Q0M ROBERT Rx#:[id number] Norepinephrine 8 mg In 76.455 432.016 Sodium Chloride 0.9% 250 ml @ 0.05 MCG/KG/MIN 9. 124 mls/hr IV .Q24H ROBERT Rx#:[id number] Blood Product 402 Platelet Pheresis Acd-A 402 Pasc 1 Unit [id number] Output: Urine 825 20 Other: Voiding Method Indwelling Catheter # Voids 1 0 - Constitutional General appearance: Present: average body habitus - Integumentary Integumentary Comment(s): doss color - Neurologic Neurologic: Absent: CNII-XII intact, focal deficits - Musculoskeletal Musculoskeletal: Absent: gait normal, generalized weakness, strength equal bilaterally, right sided weakness, left sided weakness - Psychiatric Psychiatric: Absent: A&O x's 3, appropriate affect, intact judgment & insight - Allied health notes Allied health notes reviewed: nursing - Labs CBC & Chem 7: 07/25/20 03:05 07/25/20 03:05 Labs: Abnormal Lab Results - Last 24 Hours (Table) 07/24/20 07/24/20 07/24/20 Range/Units 09:20 15:44 16:31 RBC (4.30-5.90) m/uL Hgb (13.0-17.5) gm/dL Hct (39.0-53.0) % Plt Count (150-450) k/uL Lymphocytes # (Manual) (1.0-4.8) k/uL Metamyelocytes # (Man) (0) k/uL PT (9.0-12.0) sec INR (<1.2) APTT (22.0-30.0) sec D-Dimer (<0.60) mg/L FEU ABG pH (7.35-7.45) ABG pCO2 (35-45) mmHg ABG pO2 (83-108) mmHg ABG HCO3 (21-25) mmol/L ABG Total CO2 (19-24) mmol/L ABG O2 Saturation (94-97) % BUN (9-20) mg/dL Glucose (74-99) mg/dL POC Glucose (mg/dL) 128 H 119 H (75-99) mg/dL Calcium (8.4-10.2) mg/dL Ferritin (22.0-322.0) ng/mL ALT (4-49) U/L Lactate Dehydrogenase (313-618) U/L C-Reactive Protein (<1.0) mg/dL Total Protein (6.3-8.2) g/dL Albumin (3.5-5.0) g/dL Vitamin B12 948.0 H (200.0-944.0) pg/mL Procalcitonin (0.02-0.09) ng/mL 07/24/20 07/24/20 07/24/20 Range/Units 17:03 17:03 20:29 RBC 3.82 L (4.30-5.90) m/uL Hgb 11.6 L (13.0-17.5) gm/dL Hct 35.4 L (39.0-53.0) % Plt Count 55 L (150-450) k/uL Lymphocytes # (Manual) (1.0-4.8) k/uL Metamyelocytes # (Man) (0) k/uL PT (9.0-12.0) sec INR (<1.2) APTT 21.8 L (22.0-30.0) sec D-Dimer 2.15 H (<0.60) mg/L FEU ABG pH (7.35-7.45) ABG pCO2 (35-45) mmHg ABG pO2 (83-108) mmHg ABG HCO3 (21-25) mmol/L ABG Total CO2 (19-24) mmol/L ABG O2 Saturation (94-97) % BUN (9-20) mg/dL Glucose (74-99) mg/dL POC Glucose (mg/dL) 100 H (75-99) mg/dL Calcium (8.4-10.2) mg/dL Ferritin (22.0-322.0) ng/mL ALT (4-49) U/L Lactate Dehydrogenase (313-618) U/L C-Reactive Protein (<1.0) mg/dL Total Protein (6.3-8.2) g/dL Albumin (3.5-5.0) g/dL Vitamin B12 (200.0-944.0) pg/mL Procalcitonin (0.02-0.09) ng/mL 07/24/20 07/25/20 07/25/20 Range/Units 23:34 03:05 03:05 RBC 3.83 L 3.55 L (4.30-5.90) m/uL Hgb 12.3 L 10.7 L (13.0-17.5) gm/dL Hct 35.1 L 33.4 L (39.0-53.0) % Plt Count 101 L D 77 L (150-450) k/uL Lymphocytes # (Manual) 0.14 L (1.0-4.8) k/uL Metamyelocytes # (Man) 0.28 H (0) k/uL PT 12.2 H (9.0-12.0) sec INR 1.2 H (<1.2) APTT (22.0-30.0) sec D-Dimer 26.05 H (<0.60) mg/L FEU ABG pH (7.35-7.45) ABG pCO2 (35-45) mmHg ABG pO2 (83-108) mmHg ABG HCO3 (21-25) mmol/L ABG Total CO2 (19-24) mmol/L ABG O2 Saturation (94-97) % BUN (9-20) mg/dL Glucose (74-99) mg/dL POC Glucose (mg/dL) (75-99) mg/dL Calcium (8.4-10.2) mg/dL Ferritin (22.0-322.0) ng/mL ALT (4-49) U/L Lactate Dehydrogenase (313-618) U/L C-Reactive Protein (<1.0) mg/dL Total Protein (6.3-8.2) g/dL Albumin (3.5-5.0) g/dL Vitamin B12 (200.0-944.0) pg/mL Procalcitonin (0.02-0.09) ng/mL 07/25/20 07/25/20 07/25/20 Range/Units 03:05 03:05 04:19 RBC (4.30-5.90) m/uL Hgb (13.0-17.5) gm/dL Hct (39.0-53.0) % Plt Count (150-450) k/uL Lymphocytes # (Manual) (1.0-4.8) k/uL Metamyelocytes # (Man) (0) k/uL PT (9.0-12.0) sec INR (<1.2) APTT (22.0-30.0) sec D-Dimer (<0.60) mg/L FEU ABG pH (7.35-7.45) ABG pCO2 (35-45) mmHg ABG pO2 (83-108) mmHg ABG HCO3 (21-25) mmol/L ABG Total CO2 (19-24) mmol/L ABG O2 Saturation (94-97) % BUN 49 H (9-20) mg/dL Glucose 45 L* (74-99) mg/dL POC Glucose (mg/dL) 112 H (75-99) mg/dL Calcium 7.4 L (8.4-10.2) mg/dL Ferritin 1472.6 H (22.0-322.0) ng/mL ALT 51 H (4-49) U/L Lactate Dehydrogenase 1513 H (313-618) U/L C-Reactive Protein 4.0 H (<1.0) mg/dL Total Protein 4.2 L (6.3-8.2) g/dL Albumin 2.2 L (3.5-5.0) g/dL Vitamin B12 (200.0-944.0) pg/mL Procalcitonin 9.51 H (0.02-0.09) ng/mL 07/25/20 07/25/20 07/25/20 Range/Units 05:32 05:55 06:17 RBC (4.30-5.90) m/uL Hgb (13.0-17.5) gm/dL Hct (39.0-53.0) % Plt Count (150-450) k/uL Lymphocytes # (Manual) (1.0-4.8) k/uL Metamyelocytes # (Man) (0) k/uL PT (9.0-12.0) sec INR (<1.2) APTT (22.0-30.0) sec D-Dimer (<0.60) mg/L FEU ABG pH 7.48 H 7.47 H (7.35-7.45) ABG pCO2 31 L 32 L (35-45) mmHg ABG pO2 45 L* 45 L* (83-108) mmHg ABG HCO3 (21-25) mmol/L ABG Total CO2 25 H (19-24) mmol/L ABG O2 Saturation 83.9 L 82.8 L (94-97) % BUN (9-20) mg/dL Glucose (74-99) mg/dL POC Glucose (mg/dL) 57 L (75-99) mg/dL Calcium (8.4-10.2) mg/dL Ferritin (22.0-322.0) ng/mL ALT (4-49) U/L Lactate Dehydrogenase (313-618) U/L C-Reactive Protein (<1.0) mg/dL Total Protein (6.3-8.2) g/dL Albumin (3.5-5.0) g/dL Vitamin B12 (200.0-944.0) pg/mL Procalcitonin (0.02-0.09) ng/mL 07/25/20 07/25/20 07/25/20 Range/Units 06:37 08:27 10:07 RBC (4.30-5.90) m/uL Hgb (13.0-17.5) gm/dL Hct (39.0-53.0) % Plt Count (150-450) k/uL Lymphocytes # (Manual) (1.0-4.8) k/uL Metamyelocytes # (Man) (0) k/uL PT (9.0-12.0) sec INR (<1.2) APTT (22.0-30.0) sec D-Dimer (<0.60) mg/L FEU ABG pH 7.25 L 7.18 L* (7.35-7.45) ABG pCO2 52 H 59 H (35-45) mmHg ABG pO2 73 L (83-108) mmHg ABG HCO3 (21-25) mmol/L ABG Total CO2 (19-24) mmol/L ABG O2 Saturation 91.6 L (94-97) % BUN (9-20) mg/dL Glucose (74-99) mg/dL POC Glucose (mg/dL) 113 H (75-99) mg/dL Calcium (8.4-10.2) mg/dL Ferritin (22.0-322.0) ng/mL ALT (4-49) U/L Lactate Dehydrogenase (313-618) U/L C-Reactive Protein (<1.0) mg/dL Total Protein (6.3-8.2) g/dL Albumin (3.5-5.0) g/dL Vitamin B12 (200.0-944.0) pg/mL Procalcitonin (0.02-0.09) ng/mL 07/25/20 Range/Units 13:04 RBC (4.30-5.90) m/uL Hgb (13.0-17.5) gm/dL Hct (39.0-53.0) % Plt Count (150-450) k/uL Lymphocytes # (Manual) (1.0-4.8) k/uL Metamyelocytes # (Man) (0) k/uL PT (9.0-12.0) sec INR (<1.2) APTT (22.0-30.0) sec D-Dimer (<0.60) mg/L FEU ABG pH 7.33 L (7.35-7.45) ABG pCO2 80 H* (35-45) mmHg ABG pO2 51 L* (83-108) mmHg ABG HCO3 42 H* (21-25) mmol/L ABG Total CO2 45 H (19-24) mmol/L ABG O2 Saturation 82.2 L (94-97) % BUN (9-20) mg/dL Glucose (74-99) mg/dL POC Glucose (mg/dL) (75-99) mg/dL Calcium (8.4-10.2) mg/dL Ferritin (22.0-322.0) ng/mL ALT (4-49) U/L Lactate Dehydrogenase (313-618) U/L C-Reactive Protein (<1.0) mg/dL Total Protein (6.3-8.2) g/dL Albumin (3.5-5.0) g/dL Vitamin B12 (200.0-944.0) pg/mL Procalcitonin (0.02-0.09) ng/mL - Imaging and Cardiology Chest x-ray: report reviewed Assessment and Plan (1) Thrombocytopenia Narrative/Plan: Progressive decline in platelets since admission. Transfuse platelets for symptoms-plt were transfused yesterday with no significant change, actually down to 15K from 18K yesterday. Nursing is not reporting acute bleeding. HIT antibody negative. DIC workup cont ordered, will repeat those labs again in the a.m.. Patient has had rectal bleeding, Surgery seen. Decreased hemoglobin but not rapid, daily and PRN CBC. Transfusions if needed for hemorrhage. No anticoagulation recommended at this time. Current Visit: Yes Status: Acute Priority: High Code(s): D69.6 - T HROMBOCYTOPENIA, UNSPECIFIED SNOMED Code(s): 267672857 (2) Coronavirus infection Current Visit: Yes Status: Acute Priority: High Code(s): B34.2 - COR ONAVIRUS INFECTION, UNSPECIFIED SNOMED Code(s): 992025439
--- NOTE | 2020-07-25 14:19 | XR ---
EXAMINATION TYPE: XR chest 1V DATE OF EXAM: 07/25/2020 CLINICAL HISTORY: Difficulty breathing left-sided pneumothorax. TECHNIQUE: Single AP portable supine view of the chest is obtained. COMPARISON: Chest x-ray from earlier today an older studies FINDINGS: New left-sided chest tube with left lung reexpansion. There are tiny biapical pneumothorac es seen better on current study versus most recent prior studies. Stable right basilar chest tube. St able endotracheal and orogastric tubes. Stable left-sided PICC line and right internal jugular centra l venous catheter. Multifocal reticulonodular and parenchymal opacities bilaterally are redemonstrated with more conflue nt appearance in the left lung base. Cardiac silhouette size upper limits of normal. Stable subcutane ous air right lower thorax laterally. New subcutaneous air left lower thorax. Osseous structures are intact. IMPRESSION: Marked improvement in left-sided pneumothorax after chest tube placement. Improved medias tinal shift. Tiny biapical pneumothoraces noted on current study.
--- NOTE | 2020-07-25 14:37 | P.CONS ---
History of Present Illness - Reason for Consult Consult date: 07/25/20 Lower GI bleed Requesting physician: Yury Stewart - Chief Complaint Shortness of breath, COVID-19 pneumonia - History of Present Illness This is a 70-year-old white male presented to the emergency department 06/21/2020 for shortness of breath. He was found to have Coban pneumonia and be hypoxic. He was initially admitted to the ICU then transferred to the medical floor. He was on prolonged BiPAP. Yesterday while being on the medical floor he had a dark stool with blood clots, apparently 2 days ago he had an enema for constipation and the dark stools with clots followed. An A-team was called and the patient was transferred to the ICU yesterday evening as he became more obtunded. He had some additional bleeding with his bowel movement earlier this morning according to his nurse however not a large amount, hence we were consulted. He initially was on Xarelto, was then switched to Lovenox high-dose however had evidence of thrombocytopenia therefore was decreased and subsequently discontinued. His last dose of Lovenox was 45 mcg 1-2 days ago. In the middle the night he became more hypoxic and had to be intubated, this morning he was noted to have a pneumothorax and a chest tube was placed. This afternoon prior to us seeing the patient: Juan David was called and CPR was administered. Past medical history obtained from patient's chart due to patient's condition and no family at the bedside. His past medical history includes atrial fibrillation, coronary artery disease, reflux, hyperlipidemia, hypertension, and myocardial infarction. 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), gout, Last Myocardial Infarction Date:: 05-09-06 History of Any Multi-Drug Resistant Organisms: None Reported Past Surgical History: Back Surgery, Heart Catheterization With Stent, Hernia Repair, Orthopedic Surgery Additional Past Surgical History / Comment(s): LT INGUINAL HERNIA, LT EYE SX TO REPAIR THE BROKEN ORBIT HAS METAL IN PLACE, 2 cardiac stents, surgery for fx rt foot Past Anesthesia/Blood Transfusion Reactions: Previous Problems w/ Anesthesia Additional Past Anesthesia/Blood Transfusion Reaction / Comm: one time "was not very nice when coming out of anesthesia" Date of Last Stent Placement:: 05-09-06 Past Psychological History: No Psychological Hx Reported Smoking Status: Never smoker Past Alcohol Use History: None Reported Additional Past Alcohol Use History / Comment(s): smoked x 20 years, 1ppd quit 1998 Past Drug Use History: None Reported - Past Family History Father Family Medical History: Cancer Additional Family Medical History / Comment(s): COLON CANCER Medications and Allergies Home Medications Medication Instructions Recorded Confirmed Type Allopurinol [Zyloprim] 100 mg PO DAILY 09/09/17 06/21/20 History Metoprolol Tartrate [Lopressor] 25 mg PO BID #60 tab 09/15/17 06/21/20 Rx Rosuvastatin Calcium 5 mg PO HS 06/21/20 06/21/20 History lisinopriL [Zestril] 2.5 mg PO HS 06/21/20 06/21/20 History Gabapentin [Neurontin] 300 mg PO TID PRN 06/22/20 06/22/20 History predniSONE See Taper PO DAILY 06/22/20 06/22/20 History Allergies Allergy/AdvReac Type Severity Reaction Status Date / Time Penicillins Allergy Unknown Verified 06/21/20 21:33 Physical Exam Vitals: Vital Signs Temp Pulse Resp BP Pulse Ox 07/25/20 07:00 114 H 33 H 104/55 82 L 07/25/20 06:00 103 H 30 H 80/42 85 L 07/25/20 05:00 103 H 28 H 69/46 87 L 07/25/20 04:01 100.0 F H 105 H 33 H 110/75 07/25/20 03:03 98 23 65/52 81 L 07/25/20 02:00 108 H 30 H 74/47 07/25/20 01:00 104 H 25 H 93/55 86 L 07/25/20 00:06 101 H 21 76 L 07/25/20 00:00 99.6 F 98 23 105/71 07/24/20 23:41 99.8 F H 130 H 30 H 122/67 07/24/20 23:00 125 H 45 H 108/64 07/24/20 22:02 112 H 25 H 141/87 07/24/20 21:17 99.4 F 111 H 136/88 86 L 07/24/20 21:00 96 30 H 92/59 93 L 07/24/20 20:47 99.0 F 85 93/59 94 L 07/24/20 20:37 99.6 F 25 H 116/79 91 L 07/24/20 20:00 99.6 F 102 H 20 118/73 95 07/24/20 19:07 91 L 07/24/20 19:00 101 H 25 H 118/89 07/24/20 18:00 119/66 07/24/20 17:00 98.7 F 110 H 25 H 103/61 Intake and Output 07/24/20 07/25/20 07/25/20 22:59 06:59 14:59 Intake Total 750 1507.689 561.096 Output Total 0 825 20 Balance 750 682.689 541.096 Intake: IV 750 1000 125 .9 KVO 750 1000 125 Intake, IV Titration 105.689 436.096 Amount Dexmedetomidine/0.9% NaCl 29.234 (Pmx) 400 mcg In Empty Bag 1 bag @ Titrate IV . Q0M ROBERT Rx#:[id number] EPINEPHrine 4 mg In 4.080 Dextrose 5% in Water 250 ml @ 0.01 MCG/KG/MIN 3. 548 mls/hr IV .Q24H ROBERT Rx#:[id number] Norepinephrine 8 mg In 76.455 432.016 Sodium Chloride 0.9% 250 ml @ 0.05 MCG/KG/MIN 9. 124 mls/hr IV .Q24H ROBERT Rx#:[id number] Blood Product 0 402 Platelet Pheresis Acd-A 0 402 Pasc 1 Unit [id number] Output: Urine 0 825 20 Other: Voiding Method Urinal Indwelling Catheter # Voids 0 0 Weight 94.6 kg General appearance: The patient is sedated on mechanical ventilation. CODE BLUE was recently called and CPR had been initiated. HET: Head is normocephalic and atraumatic. Neck: Trachea midline. Abdomen: Soft, nondistened. Extremities: Bilateral lower extremity edema Neurological: Sedated on ventilator Results CBC & Chem 7: 07/25/20 03:05 07/25/20 03:05 Labs: Abnormal Lab Results - Last 24 Hours (Table) 07/24/20 07/24/20 07/24/20 Range/Units 09:20 15:44 16:31 RBC (4.30-5.90) m/uL Hgb (13.0-17.5) gm/dL Hct (39.0-53.0) % Plt Count (150-450) k/uL Lymphocytes # (Manual) (1.0-4.8) k/uL Metamyelocytes # (Man) (0) k/uL PT (9.0-12.0) sec INR (<1.2) APTT (22.0-30.0) sec D-Dimer (<0.60) mg/L FEU ABG pH (7.35-7.45) ABG pCO2 (35-45) mmHg ABG pO2 (83-108) mmHg ABG HCO3 (21-25) mmol/L ABG Total CO2 (19-24) mmol/L ABG O2 Saturation (94-97) % BUN (9-20) mg/dL Glucose (74-99) mg/dL POC Glucose (mg/dL) 128 H 119 H (75-99) mg/dL Calcium (8.4-10.2) mg/dL Ferritin (22.0-322.0) ng/mL ALT (4-49) U/L Lactate Dehydrogenase (313-618) U/L C-Reactive Protein (<1.0) mg/dL Total Protein (6.3-8.2) g/dL Albumin (3.5-5.0) g/dL Vitamin B12 948.0 H (200.0-944.0) pg/mL Procalcitonin (0.02-0.09) ng/mL 07/24/20 07/24/20 07/24/20 Range/Units 17:03 17:03 20:29 RBC 3.82 L (4.30-5.90) m/uL Hgb 11.6 L (13.0-17.5) gm/dL Hct 35.4 L (39.0-53.0) % Plt Count 55 L (150-450) k/uL Lymphocytes # (Manual) (1.0-4.8) k/uL Metamyelocytes # (Man) (0) k/uL PT (9.0-12.0) sec INR (<1.2) APTT 21.8 L (22.0-30.0) sec D-Dimer 2.15 H (<0.60) mg/L FEU ABG pH (7.35-7.45) ABG pCO2 (35-45) mmHg ABG pO2 (83-108) mmHg ABG HCO3 (21-25) mmol/L ABG Total CO2 (19-24) mmol/L ABG O2 Saturation (94-97) % BUN (9-20) mg/dL Glucose (74-99) mg/dL POC Glucose (mg/dL) 100 H (75-99) mg/dL Calcium (8.4-10.2) mg/dL Ferritin (22.0-322.0) ng/mL ALT (4-49) U/L Lactate Dehydrogenase (313-618) U/L C-Reactive Protein (<1.0) mg/dL Total Protein (6.3-8.2) g/dL Albumin (3.5-5.0) g/dL Vitamin B12 (200.0-944.0) pg/mL Procalcitonin (0.02-0.09) ng/mL 07/24/20 07/25/20 07/25/20 Range/Units 23:34 03:05 03:05 RBC 3.83 L 3.55 L (4.30-5.90) m/uL Hgb 12.3 L 10.7 L (13.0-17.5) gm/dL Hct 35.1 L 33.4 L (39.0-53.0) % Plt Count 101 L D 77 L (150-450) k/uL Lymphocytes # (Manual) 0.14 L (1.0-4.8) k/uL Metamyelocytes # (Man) 0.28 H (0) k/uL PT 12.2 H (9.0-12.0) sec INR 1.2 H (<1.2) APTT (22.0-30.0) sec D-Dimer 26.05 H (<0.60) mg/L FEU ABG pH (7.35-7.45) ABG pCO2 (35-45) mmHg ABG pO2 (83-108) mmHg ABG HCO3 (21-25) mmol/L ABG Total CO2 (19-24) mmol/L ABG O2 Saturation (94-97) % BUN (9-20) mg/dL Glucose (74-99) mg/dL POC Glucose (mg/dL) (75-99) mg/dL Calcium (8.4-10.2) mg/dL Ferritin (22.0-322.0) ng/mL ALT (4-49) U/L Lactate Dehydrogenase (313-618) U/L C-Reactive Protein (<1.0) mg/dL Total Protein (6.3-8.2) g/dL Albumin (3.5-5.0) g/dL Vitamin B12 (200.0-944.0) pg/mL Procalcitonin (0.02-0.09) ng/mL 07/25/20 07/25/20 07/25/20 Range/Units 03:05 03:05 04:19 RBC (4.30-5.90) m/uL Hgb (13.0-17.5) gm/dL Hct (39.0-53.0) % Plt Count (150-450) k/uL Lymphocytes # (Manual) (1.0-4.8) k/uL Metamyelocytes # (Man) (0) k/uL PT (9.0-12.0) sec INR (<1.2) APTT (22.0-30.0) sec D-Dimer (<0.60) mg/L FEU ABG pH (7.35-7.45) ABG pCO2 (35-45) mmHg ABG pO2 (83-108) mmHg ABG HCO3 (21-25) mmol/L ABG Total CO2 (19-24) mmol/L ABG O2 Saturation (94-97) % BUN 49 H (9-20) mg/dL Glucose 45 L* (74-99) mg/dL POC Glucose (mg/dL) 112 H (75-99) mg/dL Calcium 7.4 L (8.4-10.2) mg/dL Ferritin 1472.6 H (22.0-322.0) ng/mL ALT 51 H (4-49) U/L Lactate Dehydrogenase 1513 H (313-618) U/L C-Reactive Protein 4.0 H (<1.0) mg/dL Total Protein 4.2 L (6.3-8.2) g/dL Albumin 2.2 L (3.5-5.0) g/dL Vitamin B12 (200.0-944.0) pg/mL Procalcitonin 9.51 H (0.02-0.09) ng/mL 07/25/20 07/25/20 07/25/20 Range/Units 05:32 05:55 06:17 RBC (4.30-5.90) m/uL Hgb (13.0-17.5) gm/dL Hct (39.0-53.0) % Plt Count (150-450) k/uL Lymphocytes # (Manual) (1.0-4.8) k/uL Metamyelocytes # (Man) (0) k/uL PT (9.0-12.0) sec INR (<1.2) APTT (22.0-30.0) sec D-Dimer (<0.60) mg/L FEU ABG pH 7.48 H 7.47 H (7.35-7.45) ABG pCO2 31 L 32 L (35-45) mmHg ABG pO2 45 L* 45 L* (83-108) mmHg ABG HCO3 (21-25) mmol/L ABG Total CO2 25 H (19-24) mmol/L ABG O2 Saturation 83.9 L 82.8 L (94-97) % BUN (9-20) mg/dL Glucose (74-99) mg/dL POC Glucose (mg/dL) 57 L (75-99) mg/dL Calcium (8.4-10.2) mg/dL Ferritin (22.0-322.0) ng/mL ALT (4-49) U/L Lactate Dehydrogenase (313-618) U/L C-Reactive Protein (<1.0) mg/dL Total Protein (6.3-8.2) g/dL Albumin (3.5-5.0) g/dL Vitamin B12 (200.0-944.0) pg/mL Procalcitonin (0.02-0.09) ng/mL 07/25/20 07/25/20 07/25/20 Range/Units 06:37 08:27 10:07 RBC (4.30-5.90) m/uL Hgb (13.0-17.5) gm/dL Hct (39.0-53.0) % Plt Count (150-450) k/uL Lymphocytes # (Manual) (1.0-4.8) k/uL Metamyelocytes # (Man) (0) k/uL PT (9.0-12.0) sec INR (<1.2) APTT (22.0-30.0) sec D-Dimer (<0.60) mg/L FEU ABG pH 7.25 L 7.18 L* (7.35-7.45) ABG pCO2 52 H 59 H (35-45) mmHg ABG pO2 73 L (83-108) mmHg ABG HCO3 (21-25) mmol/L ABG Total CO2 (19-24) mmol/L ABG O2 Saturation 91.6 L (94-97) % BUN (9-20) mg/dL Glucose (74-99) mg/dL POC Glucose (mg/dL) 113 H (75-99) mg/dL Calcium (8.4-10.2) mg/dL Ferritin (22.0-322.0) ng/mL ALT (4-49) U/L Lactate Dehydrogenase (313-618) U/L C-Reactive Protein (<1.0) mg/dL Total Protein (6.3-8.2) g/dL Albumin (3.5-5.0) g/dL Vitamin B12 (200.0-944.0) pg/mL Procalcitonin (0.02-0.09) ng/mL 07/25/20 Range/Units 13:04 RBC (4.30-5.90) m/uL Hgb (13.0-17.5) gm/dL Hct (39.0-53.0) % Plt Count (150-450) k/uL Lymphocytes # (Manual) (1.0-4.8) k/uL Metamyelocytes # (Man) (0) k/uL PT (9.0-12.0) sec INR (<1.2) APTT (22.0-30.0) sec D-Dimer (<0.60) mg/L FEU ABG pH 7.33 L (7.35-7.45) ABG pCO2 80 H* (35-45) mmHg ABG pO2 51 L* (83-108) mmHg ABG HCO3 42 H* (21-25) mmol/L ABG Total CO2 45 H (19-24) mmol/L ABG O2 Saturation 82.2 L (94-97) % BUN (9-20) mg/dL Glucose (74-99) mg/dL POC Glucose (mg/dL) (75-99) mg/dL Calcium (8.4-10.2) mg/dL Ferritin (22.0-322.0) ng/mL ALT (4-49) U/L Lactate Dehydrogenase (313-618) U/L C-Reactive Protein (<1.0) mg/dL Total Protein (6.3-8.2) g/dL Albumin (3.5-5.0) g/dL Vitamin B12 (200.0-944.0) pg/mL Procalcitonin (0.02-0.09) ng/mL Assessment and Plan (1) GI bleed Narrative/Plan: A 62-year-old white male was noted to have bloody bowel movement with clots yesterday after previously having an enema for constipation. It was reported as heavy at one time however has not had any more for several hours. He has been on anticoagulation Lovenox which was discontinued 1-2 days ago for evidence of thrombocytopenia and GI bleed. Unable to obtain endoscopic history at this time as patient is currently intubated. A recent CODE BLUE was called when the patient with CPR initiated prior to this consult. There is been continued drop in the patient's platelets along with the slight decline in hemoglobin over the last 3 days. Current hemoglobin 10.8, with platelets 77,000. At this time patient is not hemodynamically stable to undergo any endoscopic evaluation, we will continue to monitor signs and symptoms of GI bleed as well as trending hemoglobin. If patient stabilizes can consider future endoscopic evaluation. Current Visit: Yes Status: Acute Code(s): K92.2 - GASTROINTESTINAL HEMORRHAGE, UNSPECIFIED SNOMED Code(s): 79871744 (2) Hypoxia Current Visit: Yes Status: Acute Code(s): R09.02 - HYPOXEMIA SNOMED C ode(s): 583662343 (3) Pneumonia due to COVID-19 virus Current Visit: Yes Status: Acute Code(s): U07.1 - COVID-19; J12.82 - Pneumonia due to coronavirus disease 2019 SNOMED Code(s): 750560441388999354 (4) Thrombocytopenia Current Visit: Yes Status: Acute Priority: High Code(s): D69.6 - THROMBOCYTOPENIA, UNSPECIFIED SNOMED Code(s): 112788921 Plan: 1. Continue symptomatic and supportive care 2. Continue ICU management 3. Protonix 40 mg IV push twice a day 4. Continue to hold anticoagulation 5. Daily CBC transfuse for hemoglobin less than 7 6. Continue to monitor for signs and symptoms of GI bleed 7. No plans for endoscopic evaluation at this time until patient becomes h emodynamically stable Thank you for this consultation, we will continue to follow Dr. Rafy Laureano I agree with the dictator's note, documented as a scribe by Nunu Taveras.
--- NOTE | 2020-07-25 15:09 | P.PCN ---
Date of Procedure: 07/25/20 Preoperative Diagnosis: Left-sided pneumothorax Postoperative Diagnosis: Left-sided pneumothorax Procedure(s) Performed: Left-sided chest tube insertion Anesthesia: none Surgeon: Henry King Estimated Blood Loss (ml): 0 Pathology: other Condition: critical Disposition: ICU Operative Findings: A time-out was completed verifying correct patient, procedure, site, positioning, and special equipment if applicable. The patient was positioned appropriately for chest tube placement. The patient' s left chest was prepped and draped in sterile fashion. 1% Lidocaine was used to anesthetize the surrounding skin area. A 2 cm skin incision was made in the mid-axillary line at the inframammarycrease. Utilizing blunt dissection a subcutaneous tunnel was created cephalad just adjacent to the superior rib. The pleural space was entered bluntly and gush of air was observed. A finger was inserted into the pleural space to check for anatomy and guide tube insertion. A 32 thoracostomy tube was inserted using a Raquel clamp and positioned appropriately. The chest tube was sutured securely to the skin and a sterile dressing applied. A pleurevac was attached to the chest tube and a chest x-ray obtained. I personally performed this procedure and I was was present for the entire procedure. Estimated Blood Loss:0 The patient tolerated the procedure well and there were no complications.
--- NOTE | 2020-07-25 15:55 | P.PN ---
Subjective Progress Note Date: 07/25/20 This is 70-year-old gentleman with past medical history of hypertension, and gastroesophageal reflux disease, CAD, PR, chronic back pain with history of laminectomy and multiple other medical issues presented to the ER with history of fevers ,worsening shortness of breath. Patient had seen his PCP last week on Thursday the and was recommended to go for his covid test. Patient apparently never went for his test. Yesterday completed a tele visit with his PCP, Dr. Encarnacion, referred to the ER. Patient tested positive for Covid infection while in the ER. On admission patient hypoxic with O2 sat of 80% on room air, required nonrebreather to maintain O2 sats in the 90s to 100%. Febrile on admission with temperature 99.9, normal WBC. D-dimer 2.41, sodium 132, BUN 52, creatinine 2.05, ferritin 1556.7 total bili elevated on admission now within normal limits, mildly elevated LFTs, LDH 2411currently 2018, CRP 158.4. Given patient's renal function and respiratory status unable to proceed with CTA of chest or VQ to rule out PE, currently on heparin drip. Chest x-ray reported partially consolidative opacity in the right lung base consistent with acute pneumonic process. Telemetry sinus rhythm with fusion complexes and PACs with left axis deviation. Denies chest pain, palpitations. 06/25/2020 during the night and again this morning patient removing his oxygen, desatting into the high 40s, turning blue, return to 15 L high flow in addition to nonrebreather, O2 sats initially in the high 80s. As the morning progressed, only maintaining O2 sats in the low 80s and transitioned to BiPAP mask. Chest x-ray reported diffuse bilateral patchy infiltrates stable. Denies chest pain, palpitations. Xanax administered for anxiety. Continue to develop more agitation attempting deplorable off mask. protozoology teacher placed in room. Eventually patient required IV push Haldol. Patient now maintaining O2 sat of 94% on 100% BiPAP. Afebrile, WBC 14.8. Creatinine improving, 1.28. 06/26/2020 requiring 100% BiPAP to maintain O2 sats in the low 90s. T-max 102.6. WBC 14.9. Telemetry reporting Sinus Tachycardia with heart rates up into the 120s. Echo reported LV function 40-45% . Potassium 5.2, Renal function improving. Blood sugars controlled. Anxious, agitated, combative at times. Sitter remains at bedside. Receiving when necessary Haldol. Staff reports patient was asking for the bar mayandel, unclear if history of EtOH abuse, with questionable withdrawal. Psychiatry consult in place with recommendations pending. 06/27/2020 marketing agent hours, significant agitation despite adjustment in med regimen. Received Ativan 1 mg IV push. Agitation lessened. Staff reports carmen ent was choking on water. Spiking fevers, T-max 100.5, labs pending. Taking O2 sats of 90 on 60% BiPAP. 06/28/2020 rough night with increased agitation and confusion despite Prolixin and Zyprexa. Reevaluated by psychiatry this morning with medication changes noted and appreciated. Unable to wean from 100% BiPAP, maintaining O2 sats of mid 80s to low 90s. Speech therapy unable to conduct swallow evaluation as patient unable to tolerate being off of BiPAP. Poor oral intake, renal function worsening. Sitter remains at bedside. Afebrile. 06/29/2020 100% BiPAP, maintaining O2 sats in the low 90s. Had a better night with less agitation, received Prolixin. Less confused this morning. Asking for ice chip. Complains of chronic back pain. Discussed CODE STATUS and patient wishes to remain a full code. Denies any chest pain, palpitations. BUN 43, creatinine 1.18. Received PICC line with TPN initiated yesterday. Blood sugars controlled. 07/02/2020 remains on 80% BiPAP, maintaining O2 sats in the high 80s. Minimal reserve-Unable to tolerate being off BiPAP mask . Receiving TPN via PICC line. Reporting that he is hungry.Calm, maintained on Zyprexa, prn Prolixin as per p sychiatry. Did not require Prolixin over the weekend. Sensorium significantly improved. Afebrile. D-dimer, LDH decreased, CRP increased. 07/03/2020 continue on 80% BiPAP, calm, maintaining O2 sats in the mid 90s. Hungry, asking for food, receiving TPN. Also asking for a writing board to co mmunicate easier. 07/04/2020 significant improvement in sensorium .weaned off of BiPAP currently maintaining O2 sats in the high 80s to low 90s on both high flow nasal cannula/nonrebreather. Productive cough. Continues on TPN with bites of food intermittently. Blood sugars ranging from 130 to 225. Continue on Covid cocktail including Decadron. Denies chest pain, palpitations. 07/05/2020 Staff reports patient desatted down into the 70s this morning within minutes of taken off mask (patient had been on 60L high flow nasal cannula and nonrebreather )to have a few bites of oatmeal. Slow recovery and 80% BiPAP mask reapplied. Receiving TPN via PICC line as well. Continues on Covid cocktail. Blood sugars better controlled on low-dose Levemir insulin. T-max 100.5, WBC 8.6. 07/06/2020 Desatted to the low 60s on high flow nasal cannula with nonrebreather. BiPAP 100% maintaining O2 sats of 89%. Maintained on TPN . Continues on Covid cocktail. Inflammatory markers remain elevated. Afebrile, T-max 99. Blood sugars controlled. 07/09/2020 Airvo/NRB, maintaining O2 sats in the high 80s. Afebrile. Blood sugars 160s to 190s. 07/10/2020 currently on high flow nasal cannula 60% and nonrebreather maintaining O2 sats 86-80%. Reports mild anxiety this morning. Afebrile. Labs pending. 07/16/2020 weaned off BiPAP today, currently maintained on 90% FiO2 Airvo + NRB maintaining O2 sats in the high 80s to low 90s.Chest x-ray reports bilateral interstitial and airspace disease similar to prior exam. Hemoglobin 12.9, Platelets 105. TPN discontinued, consistent carb diet initiated. Afebrile, normal WBC, blood cultures reporting no growth. T bili, AST, ALT worsened. Albumin 2.5. Continues on bronchodilators, IV steroids with blood sugars better controlled this morning. 07/17/2020 Maintained on FiO2 85% with O2 sats of 89-91%. Chest x-ray reporting stable bilateral interstitial and alveolar infiltrates. Sitting up in chair,teary-eyed over finally getting out of bed. Consuming 50% of breakfast with no nausea vomiting or diarrhea. Blood sugars controlled. Passing flatus. Mild delirium reported by staff, will re-initiate Zyprexa,as previously recommended per psychiatry. Afebrile, WBC 8.8. Hemoglobin 12.5, platelets 103. D-dimer was 0.48, sodium 134, BUN 29, creatinine 0.83. ALT 202. Ferritin decreased to 1138.4, CK 39, CRP 0.7. 07/18/2020 maintained on FiO2 90% with O2 sats 93-94%. Afebrile, normal WBC. Hemoglobin 13.4, platelets 94. Blood sugars controlled. Sodium 134., Potassium 5.2. 07/20/2020 maintained on 91% FiO2/airvo maintaining O2 sats of 90-94%. Chest x- ray pending. Telemetry sinus rhythm to sinus bradycardia with PACs. Tolerating diet with no nausea vomiting or diarrhea. Blood sugars controlled. Complaining of constipation and having to use bedpan, but severely weak, unable to stand even with a 2 person assist, requires a Shira lift to place in chair. Reinforced patient's need for subacute rehab at discharge. afebrile, normal WBC. Sensorium significantly improved, mild fluctuating delirium. 07/23/2020 FiO2 78% airvo, maintaining O2 sats mid 80s to 90%. Chest x-ray reporting unchanged moderate interstitial opacities, worse peripherally. Afebrile, normal WBC. Sodium remains at 133. D-dimer/ LDH increased. CRP 0.6.Platelets 69.Staff reporting good diet intake, blood sugars controlled. Last bowel movement yesterday, required a Fleet's enema. DVT prophylaxis with Lovenox Significant weakness persists, requiring shira lift to chair. Discussed subacute rehab again at bedside. 07/24/2020 AIRVO FiO2 85%, maintaining O2 sats 86-90%. Chest x-ray reporting unchanged, moderate interstitial opacities, worse peripherally. Positive bowel movements. During the night patient had a dark stool, nursing reported possibly blood-tinged. Patient denied stated he was pushing hard, no rectal pain. Hemoglobin remained stable , 14, platelets down to 61. Anticoagulation placed on hold, hematology consulted. Denies chest pain, palpitations. 07/25/20 yesterday afternoon developed recurrent rectal bleeding, dark stool with blood clots, worsening hypoxia, transferred to the ICU. BiPAP settings adjusted, placed on FiO2 100% .Anticoagulation remains on hold related to patient's thrombocytopenia. Hit antibody negative. Platelets transfused yesterday .Current hemoglobin decreased to 10.8, platelets 77. D-dimer increased to 26. reel and rewinder operator hours, hypoglycemic, received D50, blood sugars currently up to the low 200s. Developed further worsening respiratory status with hypoxia, obtunded, requiring intubation this morning. IV Decadron initiated. Receiving IV fluid resuscitation. Renal function stable. Currently maintained on Levophed, Nimbex, diprovan. Empiric antibiotics of cefepime and vancomycin, cultures pending. Objective - Vital Signs Vital signs: Vital Signs Temp 100.0 F H 07/25/20 04:01 Pulse 114 H 07/25/20 07:00 Resp 33 H 07/25/20 07:00 BP 104/55 07/25/20 07:00 Pulse Ox 82 L 07/25/20 07:00 Intake & Output 07/24/20 07/25/20 07/25/20 18:59 06:59 18:59 Intake Total 375 1882.689 561.096 Output Total 825 20 Balance 375 1057.689 541.096 Weight 94.6 kg Intake: IV 375 1375 125 .9 KVO 375 1375 125 Intake, IV Titration 105.689 436.096 Amount Dexmedetomidine/0.9% NaCl 29.234 (Pmx) 400 mcg In Empty Bag 1 bag @ Titrate IV . Q0M ROBERT Rx#:[id number] EPINEPHrine 4 mg In 4.080 Dextrose 5% in Water 250 ml @ 0.01 MCG/KG/MIN 3. 548 mls/hr IV .Q24H ROBERT Rx#:[id number] Norepinephrine 8 mg In 76.455 432.016 Sodium Chloride 0.9% 250 ml @ 0.05 MCG/KG/MIN 9. 124 mls/hr IV .Q24H ROBERT Rx#:[id number] Blood Product 402 Platelet Pheresis Acd-A 402 Pasc 1 Unit [id number] Output: Urine 825 20 Other: Voiding Method Indwelling Catheter # Voids 1 0 - Exam Limited exam, patient recently intubated, glue wheel operator currently lining- placing art line,triple lumen catheter at bedside. CARDIAC: Sinus tachycardia Neurologically: Unable to assess, sedated and intubated - Labs CBC & Chem 7: 07/25/20 03:05 07/25/20 03:05 Labs: Abnormal Lab Results - Last 24 Hours (Table) 07/24/20 07/24/20 07/24/20 Range/Units 09:20 15:44 16:31 RBC (4.30-5.90) m/uL Hgb (13.0-17.5) gm/dL Hct (39.0-53.0) % Plt Count (150-450) k/uL Lymphocytes # (Manual) (1.0-4.8) k/uL Metamyelocytes # (Man) (0) k/uL PT (9.0-12.0) sec INR (<1.2) APTT (22.0-30.0) sec D-Dimer (<0.60) mg/L FEU ABG pH (7.35-7.45) ABG pCO2 (35-45) mmHg ABG pO2 (83-108) mmHg ABG HCO3 (21-25) mmol/L ABG Total CO2 (19-24) mmol/L ABG O2 Saturation (94-97) % BUN (9-20) mg/dL Glucose (74-99) mg/dL POC Glucose (mg/dL) 128 H 119 H (75-99) mg/dL Calcium (8.4-10.2) mg/dL Ferritin (22.0-322.0) ng/mL ALT (4-49) U/L Lactate Dehydrogenase (313-618) U/L C-Reactive Protein (<1.0) mg/dL Total Protein (6.3-8.2) g/dL Albumin (3.5-5.0) g/dL Vitamin B12 948.0 H (200.0-944.0) pg/mL Procalcitonin (0.02-0.09) ng/mL 07/24/20 07/24/20 07/24/20 Range/Units 17:03 17:03 20:29 RBC 3.82 L (4.30-5.90) m/uL Hgb 11.6 L (13.0-17.5) gm/dL Hct 35.4 L (39.0-53.0) % Plt Count 55 L (150-450) k/uL Lymphocytes # (Manual) (1.0-4.8) k/uL Metamyelocytes # (Man) (0) k/uL PT (9.0-12.0) sec INR (<1.2) APTT 21.8 L (22.0-30.0) sec D-Dimer 2.15 H (<0.60) mg/L FEU ABG pH (7.35-7.45) ABG pCO2 (35-45) mmHg ABG pO2 (83-108) mmHg ABG HCO3 (21-25) mmol/L ABG Total CO2 (19-24) mmol/L ABG O2 Saturation (94-97) % BUN (9-20) mg/dL Glucose (74-99) mg/dL POC Glucose (mg/dL) 100 H (75-99) mg/dL Calcium (8.4-10.2) mg/dL Ferritin (22.0-322.0) ng/mL ALT (4-49) U/L Lactate Dehydrogenase (313-618) U/L C-Reactive Protein (<1.0) mg/dL Total Protein (6.3-8.2) g/dL Albumin (3.5-5.0) g/dL Vitamin B12 (200.0-944.0) pg/mL Procalcitonin (0.02-0.09) ng/mL 07/24/20 07/25/20 07/25/20 Range/Units 23:34 03:05 03:05 RBC 3.83 L 3.55 L (4.30-5.90) m/uL Hgb 12.3 L 10.7 L (13.0-17.5) gm/dL Hct 35.1 L 33.4 L (39.0-53.0) % Plt Count 101 L D 77 L (150-450) k/uL Lymphocytes # (Manual) 0.14 L (1.0-4.8) k/uL Metamyelocytes # (Man) 0.28 H (0) k/uL PT 12.2 H (9.0-12.0) sec INR 1.2 H (<1.2) APTT (22.0-30.0) sec D-Dimer 26.05 H (<0.60) mg/L FEU ABG pH (7.35-7.45) ABG pCO2 (35-45) mmHg ABG pO2 (83-108) mmHg ABG HCO3 (21-25) mmol/L ABG Total CO2 (19-24) mmol/L ABG O2 Saturation (94-97) % BUN (9-20) mg/dL Glucose (74-99) mg/dL POC Glucose (mg/dL) (75-99) mg/dL Calcium (8.4-10.2) mg/dL Ferritin (22.0-322.0) ng/mL ALT (4-49) U/L Lactate Dehydrogenase (313-618) U/L C-Reactive Protein (<1.0) mg/dL Total Protein (6.3-8.2) g/dL Albumin (3.5-5.0) g/dL Vitamin B12 (200.0-944.0) pg/mL Procalcitonin (0.02-0.09) ng/mL 07/25/20 07/25/20 07/25/20 Range/Units 03:05 03:05 04:19 RBC (4.30-5.90) m/uL Hgb (13.0-17.5) gm/dL Hct (39.0-53.0) % Plt Count (150-450) k/uL Lymphocytes # (Manual) (1.0-4.8) k/uL Metamyelocytes # (Man) (0) k/uL PT (9.0-12.0) sec INR (<1.2) APTT (22.0-30.0) sec D-Dimer (<0.60) mg/L FEU ABG pH (7.35-7.45) ABG pCO2 (35-45) mmHg ABG pO2 (83-108) mmHg ABG HCO3 (21-25) mmol/L ABG Total CO2 (19-24) mmol/L ABG O2 Saturation (94-97) % BUN 49 H (9-20) mg/dL Glucose 45 L* (74-99) mg/dL POC Glucose (mg/dL) 112 H (75-99) mg/dL Calcium 7.4 L (8.4-10.2) mg/dL Ferritin 1472.6 H (22.0-322.0) ng/mL ALT 51 H (4-49) U/L Lactate Dehydrogenase 1513 H (313-618) U/L C-Reactive Protein 4.0 H (<1.0) mg/dL Total Protein 4.2 L (6.3-8.2) g/dL Albumin 2.2 L (3.5-5.0) g/dL Vitamin B12 (200.0-944.0) pg/mL Procalcitonin 9.51 H (0.02-0.09) ng/mL 07/25/20 07/25/20 07/25/20 Range/Units 05:32 05:55 06:17 RBC (4.30-5.90) m/uL Hgb (13.0-17.5) gm/dL Hct (39.0-53.0) % Plt Count (150-450) k/uL Lymphocytes # (Manual) (1.0-4.8) k/uL Metamyelocytes # (Man) (0) k/uL PT (9.0-12.0) sec INR (<1.2) APTT (22.0-30.0) sec D-Dimer (<0.60) mg/L FEU ABG pH 7.48 H 7.47 H (7.35-7.45) ABG pCO2 31 L 32 L (35-45) mmHg ABG pO2 45 L* 45 L* (83-108) mmHg ABG HCO3 (21-25) mmol/L ABG Total CO2 25 H (19-24) mmol/L ABG O2 Saturation 83.9 L 82.8 L (94-97) % BUN (9-20) mg/dL Glucose (74-99) mg/dL POC Glucose (mg/dL) 57 L (75-99) mg/dL Calcium (8.4-10.2) mg/dL Ferritin (22.0-322.0) ng/mL ALT (4-49) U/L Lactate Dehydrogenase (313-618) U/L C-Reactive Protein (<1.0) mg/dL Total Protein (6.3-8.2) g/dL Albumin (3.5-5.0) g/dL Vitamin B12 (200.0-944.0) pg/mL Procalcitonin (0.02-0.09) ng/mL 07/25/20 07/25/20 07/25/20 Range/Units 06:37 08:27 10:07 RBC (4.30-5.90) m/uL Hgb (13.0-17.5) gm/dL Hct (39.0-53.0) % Plt Count (150-450) k/uL Lymphocytes # (Manual) (1.0-4.8) k/uL Metamyelocytes # (Man) (0) k/uL PT (9.0-12.0) sec INR (<1.2) APTT (22.0-30.0) sec D-Dimer (<0.60) mg/L FEU ABG pH 7.25 L 7.18 L* (7.35-7.45) ABG pCO2 52 H 59 H (35-45) mmHg ABG pO2 73 L (83-108) mmHg ABG HCO3 (21-25) mmol/L ABG Total CO2 (19-24) mmol/L ABG O2 Saturation 91.6 L (94-97) % BUN (9-20) mg/dL Glucose (74-99) mg/dL POC Glucose (mg/dL) 113 H (75-99) mg/dL Calcium (8.4-10.2) mg/dL Ferritin (22.0-322.0) ng/mL ALT (4-49) U/L Lactate Dehydrogenase (313-618) U/L C-Reactive Protein (<1.0) mg/dL Total Protein (6.3-8.2) g/dL Albumin (3.5-5.0) g/dL Vitamin B12 (200.0-944.0) pg/mL Procalcitonin (0.02-0.09) ng/mL 07/25/20 Range/Units 13:04 RBC (4.30-5.90) m/uL Hgb (13.0-17.5) gm/dL Hct (39.0-53.0) % Plt Count (150-450) k/uL Lymphocytes # (Manual) (1.0-4.8) k/uL Metamyelocytes # (Man) (0) k/uL PT (9.0-12.0) sec INR (<1.2) APTT (22.0-30.0) sec D-Dimer (<0.60) mg/L FEU ABG pH 7.33 L (7.35-7.45) ABG pCO2 80 H* (35-45) mmHg ABG pO2 51 L* (83-108) mmHg ABG HCO3 42 H* (21-25) mmol/L ABG Total CO2 45 H (19-24) mmol/L ABG O2 Saturation 82.2 L (94-97) % BUN (9-20) mg/dL Glucose (74-99) mg/dL POC Glucose (mg/dL) (75-99) mg/dL Calcium (8.4-10.2) mg/dL Ferritin (22.0-322.0) ng/mL ALT (4-49) U/L Lactate Dehydrogenase (313-618) U/L C-Reactive Protein (<1.0) mg/dL Total Protein (6.3-8.2) g/dL Albumin (3.5-5.0) g/dL Vitamin B12 (200.0-944.0) pg/mL Procalcitonin (0.02-0.09) ng/mL Assessment and Plan Assessment: Sepsis present on admission, secondary to Acute Covid -19 pneumonia, status post TOCI Acute hypoxic respiratory failure secondary to the above, worsened, requiring mechanical intubation. Septic shock, requiring pressors GI bleed Acute delirium, acute metabolic encephalopathy secondary to the above, possibly acute hypoxic encephalopathy, medication induced, steroids, benzos, opiates. Possible steroid psychosis. Significantly improved. Acute renal failure secondary to the above, improving Hyperglycemia, steroid-induced Thrombocytopenia, status post transfusion of platelets Gastroesophageal reflux disease Chronic paroxysmal atrial fibrillation Chronic systolic CHF, EF 35-40% Coronary artery disease with history of PR,stent placement Former nicotine dependence Hypertension Mild to moderate protein calorie malnutrition , status post TPN Plan: Continue on current medication regime ,PPI,monitoring and symptomatic tr eatment. Anticoagulation remains on hold .ICU management as per glue wheel operator. Close monitoring of coags, GI consult in place, recommendations pending. Prognosis guarded given multiple complex medical issues. The impression and plan of care has been dictated as directed. : I performed a history and examination of this patient, discussed the same with the dictator. I agree with the dictator's note ,documented as a scribe. Any additional findings or plans will be noted.
[2020-07-25 16:24] VITALS: RESP 36
[2020-07-25] MEDS ORDERED: SODIUM CHLORIDE 0.9% 1,000 ML IV ONE (17:53)
--- NOTE | 2020-07-25 19:06 | XR ---
EXAMINATION TYPE: XR chest 1V DATE OF EXAM: 07/25/2020 COMPARISON: Earlier same day HISTORY: Cardiac arrest/pain. TECHNIQUE: Single frontal view of the chest is obtained. FINDINGS: Stable lines and tubes. There is increase of subcutaneous emphysema about the bilateral low er chest bolivar. There is new small left pneumothorax. There is decreased right apical pneumothorax wi th trace residual. There is unchanged diffuse marked opacity in left lung and additional mild to mode rate opacities in the right mid to lower lungs. Stable cardiomediastinal silhouette. Osseous structur es are unchanged. IMPRESSION: New small left pneumothorax. Chest tube in place. Trace residual right apical pneumothorax. Increased bilateral chest wall subcutaneous emphysema. Persistent bilateral opacities.
[2020-07-25] MEDS: OLANZapine 7.5 MG TAB PO SCH (20:48)
[2020-07-25] MEDS ORDERED: CHLORHEXIDINE GLUCONATE 15 ML CUP MUCOUS MEM SCH (21:00)
[2020-07-25 23:04] LABS: ABG PH 7.05 (7.35-7.45); Allen Test Performed? Yes
[2020-07-25 23:05] LABS: ABG HCO3 20 mmol/L (21-25); ABG PCO2 70 mmHg (35-45); ABG PO2 80 mmHg (83-108); ABG TCO2 22 mmol/L (19-24)
[2020-07-26 00:28] LABS: Glucose,Whole Blood 144 mg/dL (75-99)
[2020-07-26] MEDS: INSULIN ASPART (NovoLOG) 100 UNIT/ML VIAL SQ SCH ×2 (01:01→05:17)
[2020-07-26] MEDS: EPINEPHrine 4 MG in DEXTROSE 5% IN WATER 250 ML IV SCH ×6 (02:30→06:58)
[2020-07-26 04:09] VITALS: TEMP 96.3
[2020-07-26] MEDS: NOREPINEPHRINE 8 MG in SODIUM CHLORIDE 0.9% 250 ML IV SCH (04:47)
[2020-07-26] MEDS: ARTIFICIAL TEARS-HYPROMELLOSE DROPS 15 ML BTL BOTH EYES SCH (04:50)
[2020-07-26 05:04] LABS: ABG Base Excess -16.4 mmol/L; ABG HCO3 16 mmol/L (21-25); ABG Oxygen Saturation 78.3 % (94-97); ABG TCO2 18 mmol/L (19-24); Allen Test Performed? Yes
[2020-07-26 05:07] LABS: ABG PCO2 74 mmHg (35-45); ABG PH 6.94 (7.35-7.45)
[2020-07-26 05:08] LABS: ABG PO2 51 mmHg (83-108)
[2020-07-26 06:58] LABS: Methylmalonic Acid 0.26 umol/L (<0.40)
--- NOTE | 2020-07-26 07:04 | P.PN ---
Subjective Progress Note Date: 07/26/20 On 07/25/2020, the patient is being seen in the intensive care unit. The patient got chest at the ICU yesterday as the patient was becoming progressively more hypoxic and furthermore he had a bout of GI bleeding. Overnight, with a further adjustments on his BiPAP. He is currently on a BiPAP pressure of 16/12 cm of water and FiO2 of 100%. Nevertheless, he continues to be quite hypoxic and his pulse ox has dropped in the mid 70s and current pulse ox is in the low 80s high 70s. His chest x-ray showing diffuse bilateral pulmonary infiltrates consistent with COVID-19 related pneumonia. Contacted the . Recommended intubation mechanical ventilation and this will be done within next few minutes. The patient's blood gases from today showed a pH of 7.47 with a pCO2 of 32 and pO2 of 45 and this was done on the above-mentioned BiPAP setting. His LDH level is 1513 and a CRP level is at 4.0. His white cell count is at 7 with a hemoglobin of 10.7. Platelet count dropped as low as 55 and it came up to 77 after being given a unit of platelets. Platelet wereadministered as the patient was having episodes of lower GI bleed. Meanwhile, the patient has had issues with bright red blood per rectum. The amount of blood was small and there was some drop in hemoglobin which dropped down to 10.7. Meanwhile, he was having a very labile pressure throughout the night. The patient is currently on IV fluids and is currently receiving normal saline at the rate of 125 mL an hour. Urine output has also dropped down to 20 mL an hour. The patient is requiring pressors on and off and currently is on norepinephrine infusion running at 0.3 mcg/kg per minute. Obviously his pressor requirements went gradually up overnight. Renal function today is stable with a mean of 49 and a creatinine of 0.9. He did have a bout of hypoglycemia this morning and he was given an amp of D50 for blood sugar of 45 and his most recent blood sugars of 213. D-dimer today's at 26. He was receiving Levemir insulin 10 units along with sinus. Coverage and Levemir insulin was held this morning. The patient was also started on Precedex on and off throughout the night for agitation or restlessness. This morning, he became more unresponsive and it was discontinued at around 3:00 this morning. 07/26/2020, the patient is still doing poorly. Sedated, paralyzed, hemodynamically unstable, requiring high doses of pressors. The complications that occurred yesterday were all explained to the family. The patient became progressively more hypoxic. He had to be intubated and placed on a mechanical ventilator. Postextubation, he developed a right-sided pneumothorax for which a right-sided chest tube was inserted. Subsequently, he developed a left-sided pneumothorax and a left-sided chest tube was also inserted. The lungs were the expanded successfully. The patient continued to have an air leak on the left and no air leak on the right. Nevertheless, he continued to be profoundly hypotensive and he suffers also a cardiac arrest during the resuscitation process and the patient was sent. According to the ACLS protocol with a downtime of less than 5 minutes. During this time, was Sedated and paralyzed and the patient was started on high-dose pressors and those were titrated to maintain a mean arterial pressure above 60. This morning, he was as high as 0.5 mg/kg per minute of norepinephrine infusion and the 0.5 mcg/kg per minute of epinephrine infusion. Most recent blood pressures the mid 70s. Not producing any urine output. He remains on assist control mode of ventilation. The vent setting currently includes a cc of 36 with a tidal volume of 405 1200% with a PEEP of 20 and a blood gas from this morning showed a pH of 6.9 with a pCO2 of 74 and pO2 of 51. Family was contacted on multiple occasions throughout the night and update was given. They are aware of the situation and the plan is to proceed with comfort care measures today. Paralytic was discontinued as we are had a hours comfort care measures and end-of-life care. No labs were drawn from this morning. Chest x-ray from this morning has not been done. Currently, off paralytics, sedated, calm and comfortable. Most recent systolic blood pressures the mid 70s. Pulse ox is currently 2% on the monitor. Objective - Vital Signs Vital signs: Vital Signs Temp 96.3 F L 07/26/20 04:00 Pulse 103 H 07/26/20 06:00 Resp 36 H 07/26/20 06:00 BP 80/23 07/26/20 06:00 Pulse Ox 79 L 07/26/20 06:00 Intake & Output 0507/25/20 07/26/20 06:59 18:59 06:59 Intake Total 7358.906 8481.435 2749.409 Output Total 825 285 340 Balance 8786.417 5334.435 2409.409 Weight 94.6 kg 97.3 kg Intake: IV 1375 6500 1475 .9 KVO 1375 1500 1475 Sodium Chloride 0.9% 2, 5000 000 ml @ 999 mls/hr IV . Q2H1M [facility] Rx#:[id number] Intake, IV Titration 105.689 192.008 0330.409 Amount Cisatracurium 200 mg In 8.419 66.409 Sodium Chloride 0.9% 180 ml @ 1 MCG/KG/MIN 5.676 mls/hr IV .Q24H [facility] Rx#: [id number] Dexmedetomidine/0.9% NaCl 29.234 (Pmx) 400 mcg In Empty Bag 1 bag @ Titrate IV . Q0M [facility] Rx#:[id number] EPINEPHrine 4 mg In 250.000 750 Dextrose 5% in Water 250 ml @ 0.01 MCG/KG/MIN 3. 548 mls/hr IV .Q24H [facility] Rx#:[id number] Norepinephrine 8 mg In 76.455 432.016 258.000 Sodium Chloride 0.9% 250 ml @ 0.05 MCG/KG/MIN 9. 124 mls/hr IV .Q24H [facility] Rx#:[id number] propofoL 1,000 mg In 100 200 Empty Bag 1 bag @ Titrate IV .Q0M [facility] Rx#: [id number] Blood Product 402 Platelet Pheresis Acd-A 402 Pasc 1 Unit [id number] Output: Chest Tube Drainage 120 Chest Tube Left 120 Chest Tube Right 0 Urine 825 285 220 Other: Voiding Method Indwelling Catheter Indwelling Catheter Indwelling Catheter # Voids 0 ABP, PAP, CO, CI - Last Documented Arterial Blood Pressure 69/46 - Exam GENERAL EXAM: Alert, very pleasant, 70-year-old white male, currently unresponsive, intubated on mechanical ventilator. Orotracheal and orogastric tube are both in place HEAD: Normocephalic/atraumatic. EYES: Normal reaction of pupils, equal size. Conjunctiva pink, sclera white. NOSE: Clear with pink turbinates. THROAT: No erythema or exudates. NECK: No masses, no JVD, no thyroid enlargement, no adenopathy. CHEST: No chest wall deformity. Symmetrical expansion. LUNGS: Equal air entry with diminished breath sounds bilaterally, with bilateral base crackles, the patient has bilateral chest tubes, positive air leak on the left, no air leak on the right CVS: Regular rate and rhythm, normal S1 and S2, no gallops, no murmurs, no rubs ABDOMEN: Soft, nontender. No hepatosplenomegaly, normal bowel sounds, no guarding or rigidity. EXTREMITIES: No clubbing, no edema, no cyanosis, 2+ pulses and upper and lower extremities. MUSCULOSKELETAL: Muscle strength and tone normal. SPINE: No scoliosis or deformity SKIN: No rashes CENTRAL NERVOUS SYSTEM: Unresponsive PSYCHIATRIC: unable to perform - Labs CBC & Chem 7: 07/25/20 03:05 07/25/20 03:05 Labs: Abnormal Lab Results - Last 24 Hours (Table) 07/25/20 07/25/20 07/25/20 Range/Units 03:05 03:05 08:27 ABG pH 7.25 L (7.35-7.45) ABG pCO2 52 H (35-45) mmHg ABG pO2 73 L (83-108) mmHg ABG HCO3 (21-25) mmol/L ABG Total CO2 (19-24) mmol/L ABG O2 Saturation 91.6 L (94-97) % POC Glucose (mg/dL) (75-99) mg/dL Ferritin 1472.6 H (22.0-322.0) ng/mL Procalcitonin 9.51 H (0.02-0.09) ng/mL 07/25/20 07/25/20 07/25/20 Range/Units 10:07 13:04 18:14 ABG pH 7.18 L* 7.33 L 7.05 L* (7.35-7.45) ABG pCO2 59 H 80 H* 70 H (35-45) mmHg ABG pO2 51 L* 80 L (83-108) mmHg ABG HCO3 42 H* 20 L (21-25) mmol/L ABG Total CO2 45 H (19-24) mmol/L ABG O2 Saturation 82.2 L 92.0 L (94-97) % POC Glucose (mg/dL) (75-99) mg/dL Ferritin (22.0-322.0) ng/mL Procalcitonin (0.02-0.09) ng/mL 07/26/20 07/26/20 Range/Units 00:27 04:57 ABG pH 6.94 L* (7.35-7.45) ABG pCO2 74 H* (35-45) mmHg ABG pO2 51 L* (83-108) mmHg ABG HCO3 16 L (21-25) mmol/L ABG Total CO2 18 L (19-24) mmol/L ABG O2 Saturation 78.3 L (94-97) % POC Glucose (mg/dL) 144 H (75-99) mg/dL Ferritin (22.0-322.0) ng/mL Procalcitonin (0.02-0.09) ng/mL Microbiology - Last 24 Hours (Table) 07/25/20 09:30 Blood Culture - Final Blood 07/25/20 09:23 Blood Culture - Final Blood Assessment and Plan Plan: #1. Acute hypoxemic respiratory failure secondary to COVID-19 pneumonia. Outside the window for Remdesivir, that is post Toci 800 mg on 07/06/2020 for worsening hypoxic respiratory failure. During the course of the treatment, the patient was she able to high flow oxygen and BiPAP for respiratory support. He got chest to the intensive care unit yesterday because of worsening respiratory status and hypoxemia. Subsequently the patient had to be intubated and placed on mechanical ventilator as the patient failed BiPAP treatment. Post intubation, the patient developed bilateral pneumothoraces requiring bilateral chest tube insertion. He became quite hemodynamically unstable and went into shock state. A limited echocardiogram was done and the patient was found to have a very poor ejection fraction of 20%. He was placed on high-dose pressors with a combination of epinephrine and norepinephrine infusion. The patient during the resuscitation process also suffered a brief cardiac arrest. He was resuscitated according to the ACLS protocol. He was supported throughout the night the mechanical ventilator and high-dose pressors. Unfortunately, his blood pressure gradually declining current systolic blood pressures the mid 70s. Not producing any urine output. He is in a shock state. Family has been contacted and they are the bedside. Initially his CODE STATUS was switched to DO NOT RESUSCITATE and currently the family is seeking end-of-life care. #2. Bilateral pneumothoraces post chest tube insertion #3 cardiogenic shock with secondary hypotension/shock, currently requiring higher doses of pressors. The patient had a repeat echocardiogram that showed an acute impairment of LV function with an ejection fraction of less than 20% #4. Chronic atrial fibrillation #5. Coronary artery disease with previous stent placement #6. GERD/reflux #7. Hypertension #8. Hyperlipidemia #9. History of rheumatic fever #10. History of gout #11. Acute kidney injury recovered #12. Nothing by mouth status #13. Thrombocytopenia, anticoagulation has been placed on hold #14 lower GI bleed with some mild drop in hemoglobin and the patient was transfused with platelets, currently inactive in stable Plan: Family is at the bedside. Had a lengthy discussion with the and a daughter the bedside. Extremely poor prognosis. Proceed with end-of-life care. The paralytics will be discontinued. Following the pressors were discontinued and the patient will be taken off sedation and morphine will be given for comfort measures. . We'll continue to follow. In the intensive care unit as the patient is undergoing end-of-life care. Case was discussed with the family. All questions answered appropriately to their satisfaction. Very appreciative and supportive family. Time with Patient: Greater than 30
[2020-07-26 07:07] VITALS: BP 73/52; PULSE 98
--- NOTE | 2020-07-26 09:27 | ECHOF ---
Referral Reason:cardiac arrest MEASUREMENTS -------- HEIGHT: 0.0 cm WEIGHT: 0.0 kg BP: 114/58 FINDINGS -------- Resting tachycardia (HR>100bpm). This was a technically difficult study with suboptimal views. Limited Study Pt. on a vent. Cardiac Arrest. Overall left ventricular systolic function is severely impaired with, an EF between 20 - 25 %. There is a trivial pericardial effusion present. CONCLUSIONS -------- 1. Overall left ventricular systolic function is severely impaired with, an EF between 20 - 25 %. 2. There is a trivial pericardial effusion present. 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
== END 2020-07-26 09:14 | disposition expired | DRG 871 ==
LOC: EC 18:14 → 3SCARD 23:10 → 2SICU 07-12 12:16 → 4SSUR 07-23 14:54 → 2SICU 07-23 15:19 → 4SSUR 07-23 16:04 → 2SICU 07-24 16:05
PROVIDERS: ADMIT Family Medicine; ATTEND Family Medicine
PROC: 5A09557 Assistance with Respiratory Ventilation, Greater than 96 Consecutive Hours, Continuous Positive Airway Pressure (ICD-10-PCS; 2020-06-26)
PROC: 02HV33Z Insertion of Infusion Device into Superior Vena Cava, Percutaneous Approach (ICD-10-PCS; 2020-06-28)
PROC: XW033H5 Introduction of Tocilizumab into Peripheral Vein, Percutaneous Approach, New Technology Group 5 (ICD-10-PCS; 2020-07-06)
PROC: 02HV33Z Insertion of Infusion Device into Superior Vena Cava, Percutaneous Approach (ICD-10-PCS; 2020-07-13)
PROC: 5A0955A Assistance with Respiratory Ventilation, Greater than 96 Consecutive Hours, High Flow/Velocity Cannula (ICD-10-PCS; 2020-07-15)
PROC: 30233R1 Transfusion of Nonautologous Platelets into Peripheral Vein, Percutaneous Approach (ICD-10-PCS; 2020-07-24)
PROC: 0BH17EZ Insertion of Endotracheal Airway into Trachea, Via Natural or Artificial Opening (ICD-10-PCS; principal; 2020-07-25)
PROC: 5A1935Z Respiratory Ventilation, Less than 24 Consecutive Hours (ICD-10-PCS; principal; 2020-07-25)
PROC: 3E033XZ Introduction of Vasopressor into Peripheral Vein, Percutaneous Approach (ICD-10-PCS; 2020-07-25)
PROC: 0D9670Z Drainage of Stomach with Drainage Device, Via Natural or Artificial Opening (ICD-10-PCS; 2020-07-25)
PROC: 3E0336Z Introduction of Nutritional Substance into Peripheral Vein, Percutaneous Approach (ICD-10-PCS; 2020-07-25)
PROC: 0W9B30Z Drainage of Left Pleural Cavity with Drainage Device, Percutaneous Approach (ICD-10-PCS; 2020-07-25)
PROC: 0W9930Z Drainage of Right Pleural Cavity with Drainage Device, Percutaneous Approach (ICD-10-PCS; 2020-07-25)
PROC: 5A12012 Performance of Cardiac Output, Single, Manual (ICD-10-PCS; 2020-07-25)
PROC: 02HV33Z Insertion of Infusion Device into Superior Vena Cava, Percutaneous Approach (ICD-10-PCS; 2020-07-25)
PROC: 4A133B1 Monitoring of Arterial Pressure, Peripheral, Percutaneous Approach (ICD-10-PCS; 2020-07-25)
PROC: 03HY32Z Insertion of Monitoring Device into Upper Artery, Percutaneous Approach (ICD-10-PCS; 2020-07-25)
PROC: 4A133J1 Monitoring of Arterial Pulse, Peripheral, Percutaneous Approach (ICD-10-PCS; 2020-07-25)
DX: A41.89 Other specified sepsis (principal); U07.1 COVID-19; J12.82 Pneumonia due to coronavirus disease 2019; R65.21 Severe sepsis with septic shock; G92 Toxic encephalopathy; J96.01 Acute respiratory failure with hypoxia; G93.41 Metabolic encephalopathy; N17.9 Acute kidney failure, unspecified; E44.0 Moderate protein-calorie malnutrition; E87.1 Hypo-osmolality and hyponatremia; G93.1 Anoxic brain damage, not elsewhere classified; I48.19 Other persistent atrial fibrillation; I50.22 Chronic systolic (congestive) heart failure; J93.82 Other air leak; K92.1 Melena; J93.83 Other pneumothorax; D69.6 Thrombocytopenia, unspecified; D72.810 Lymphocytopenia; I11.0 Hypertensive heart disease with heart failure; L89.899 Pressure ulcer of other site, unspecified stage; Z66 Do not resuscitate; L89.812 Pressure ulcer of head, stage 2; Z51.5 Encounter for palliative care; T42.4X5A Adverse effect of benzodiazepines, initial encounter; T38.0X5A Adverse effect of glucocorticoids and synthetic analogues, initial encounter; N27.0 Small kidney, unilateral; E78.5 Hyperlipidemia, unspecified; I25.10 Atherosclerotic heart disease of native coronary artery without angina pectoris; I46.8 Cardiac arrest due to other underlying condition; F09 Unspecified mental disorder due to known physiological condition; T40.605A Adverse effect of unspecified narcotics, initial encounter; Z68.32 Body mass index [BMI] 32.0-32.9, adult; E16.2 Hypoglycemia, unspecified; F41.9 Anxiety disorder, unspecified; G89.29 Other chronic pain; M54.9 Dorsalgia, unspecified; R45.1 Restlessness and agitation; I25.2 Old myocardial infarction; I25.5 Ischemic cardiomyopathy; Z78.1 Physical restraint status; K21.9 Gastro-esophageal reflux disease without esophagitis; E87.5 Hyperkalemia; K59.00 Constipation, unspecified; M10.9 Gout, unspecified; L98.491 Non-pressure chronic ulcer of skin of other sites limited to breakdown of skin; Z86.19 Personal history of other infectious and parasitic diseases; Z79.01 Long term (current) use of anticoagulants; Z79.899 Other long term (current) drug therapy; Z95.5 Presence of coronary angioplasty implant and graft; Z80.0 Family history of malignant neoplasm of digestive organs; Z87.891 Personal history of nicotine dependence; Z88.8 Allergy status to other drugs, medicaments and biological substances; Z88.0 Allergy status to penicillin; Z98.890 Other specified postprocedural states; Z87.81 Personal history of (healed) traumatic fracture
CPT/HCPCS: 36415; 36573; 36600; 71045; 80048; 80053; 81001; 82330; 82533; 82550; 82553; 82607; 82728; 82747; 82805; 83036; 83605; 83615; 83735; 83921; 84100; 84145; 84478; 85025; 85027; 85379; 85384; 85610; 85730; 86022; 86140; 86850; 86900; 86901; 87040; 87635; 93005; 93306; 93308; 93970; 94002; 94003; 94640; 94660; 94760; 99291